=== PATIENT | female | born 1970 | race Caucasian/White ===

== ENCOUNTER 2020-05-23 08:57 | Emergency (ER) | payer OTHER ==
--- OUTSIDE RECORDS SUMMARY | 2020-05-23 09:24 | XMS REPORT | Summary of Care ---
:1970 Author Organization [facility] Primary Care Phill Address [address] [place] [address]- Care Team Providers Name Role Phone Danny Mejia Primary Care Physician Encounter HQ Milka(PAXTON) [phone] Date(s): 02/21/20 - 02/22/20 [facility] Primary Care Phill 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 dermatitis(Confirmed) Hx of completed stroke(Confirmed) Active Hyperlipidemia(Confirmed) Resolved Impaired fasting glucose(Confirmed) Active Mixed hyperlipidemia(Confirmed) Active Morbid obesity(Confirmed) Active Medically noncompliant(Confirmed) Active Pes anserinus bursitis of right Active knee(Confirmed) Allergies, Adverse Reactions, Alerts No Known Allergies Medications folic acid 1 mg oral tablet 0 Refill(s) Start Date: 02/21/20 Status: Orderedhydrochlorothiazide 12.5 mg oral capsule 0 Refill(s) Start Date: 02/21/20 Status: Orderednon-formulary Refill(s) 0 Start Date: 02/21/20 Status: Orderedphentermine 37.5 mg oral tablet 0 Refill(s) Start Date: 02/21/20 Status: Ordered Results No data available for this section Immunizations No data available for this section Procedures Procedure Date Related Diagnosis Body Site Status Knee replacement 10/2018 Completed Knee replacement 11/2017 Completed Repair of meniscus 09/12/08 Completed Fusion of joint of cervical spine with 2007 Completed internal fixation by posterior approach Bariatric operative procedure Completed Social History Social History Type Response Alcohol Never Exercise Exercise duration: 0. Substance Abuse Use: None. Smoking Status Current every day smoker; Co ncerns about tobacco use in household: No; Lives with someone who smokes; Cigarette Smoking Last 365 Days Yes; Reg Smoking Cessation Counseling Yes entered on: 02/22/20 Assessment and Plan No data available for this section
--- OUTSIDE RECORDS SUMMARY | 2020-05-23 09:24 | XMS REPORT | Summary of Care ---
:1970 Author Organization [facility] Primary Care Phill Address [address] [place] [address]- Care Team Providers Name Role Phone Danny Mejia Primary Care Physician Encounter HQ Giulia_amarjit(PAXTON) [phone] Date(s): 02/22/20 - 02/23/20 [facility] Primary Care Phill [address] [place] [address] [phone] Vital Signs No data available for this [...] Adverse Reactions, Alerts No Known Allergies Medications No data available for this section Results No data available for this section Immunizations No data available for this section Procedures Procedure Date Related Diagnosis Body Site Status Knee replacement 10/2018 Completed Knee replacement 11/2017 Completed Repair of meniscus 09/12/08 Completed Fusion of joint of cervical spine with 2008 Completed internal fixation by posterior approach Bariatric [...]
--- OUTSIDE RECORDS SUMMARY | 2020-05-23 09:24 | XMS REPORT | Summary of Care ---
:1970 Author Organization [facility] Primary Care Phill Address [address] [place] [address]- Care Team Providers Name Role Phone Danny Mejia Primary Care Physician Encounter HQ Milka(PAXTON) [phone] Date(s): 02/22/20 - 02/22/20 [facility] Primary Care Phill [address] [place] [address]- [phone] Discharge Disposition: Home or Self Care Attending Physician: Osman Rodriguez MD Vital Signs No data available for this [...] Adverse Reactions, Alerts No Known Allergies Medications Flexeril 10 mg oral tablet 10 mg = 1 tab, PO, Bedtime, PRN for spasm, # 15 tab, 0 Refill(s), Pharmacy: 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/pharmacy #[id number], 154.94, cm, 08/07/19 14:05:00 TELEPATHIST, Height, 114.818, kg, 08/07/19 14:05:00 TELEPATHIST, Weight Start Date: 02/22/20 Stop Date: 02/28/20 Status: Ordered Results No data available for [...]
--- OUTSIDE RECORDS SUMMARY | 2020-05-23 09:24 | XMS REPORT | Summary of Care ---
:1970 Author Organization [facility] Primary Care Phill Address [address] [place] [address]- Care Team Providers Name Role Phone Danny Mejia Primary Care Physician Encounter HQ Milka(PAXTON) [phone] Date(s): 04/18/20 - 04/19/20 [facility] Primary Care Phill 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
--- OUTSIDE RECORDS SUMMARY | 2020-05-23 09:24 | XMS REPORT | Continuity of Care Document ---
:1970 Author Organization [facility] [employer] Care Team Providers Name Role Phone DRESSBOOM Unavailable Un available Problems Problem Status Onset Classification Date Comments Sourc e Date Reported R51 - HEADACHE Active OP ID [id number] [facility] Acid reflux Resolved Problem 04/21/2020 Medi laura (finding) Group, O PID [facility] Benign hypertension Resolved Problem 04/21/2020 Medical (disorder) Group, OPID [facility] Diabetes mellitus Resolved Problem 04/21/2020 H Medical (disorder) Group, OPID [facility] Exercise-induced Active Problem 04/21/2020 Medical asthma (disorder) Gr oup, OPID [facility] Gastroesophageal Active Problem 04/21/2020 Medical reflux disease Group , OPID without esophagitis [place] (disorder) Heavy cigarette Active Problem 04/21/2020 Medical smoker (finding) Bhumika up, OPID [facility] Herpes simplex with Active Problem 04/21/2020 Medical complication Group,[facility] OPID (disorder) [facility] History of - CVA Active Problem 04/21/2020 Medical (context-dependent G roup,MH OPID category) [facility] Hyperlipidemia Resolved Problem 04/21/2020 [facility] edical (disorder) Group, OPID [facility] Impaired fasting Active Problem 04/21/2020 Medical glycaemia Group, O PID (disorder) [facility] Mixed Active Problem 04/21/2020 Medica l hyperlipidemia Group , OPID (disorder) [facility] Morbid obesity Active Problem 04/21/2020 [facility] edical (disorder) Group, OPID [facility] Patient Active Problem 04/21/2020 Medica l non-compliance - Bhumika up, OPID general [facility] (context-dependent category) Pes anserinus Active Problem 04/21/2020 Me dical bursitis (disorder) Group, OPID [facility] Medications Medication Details Route Status Patient Ordering Order Source Instructions Provider Date pantoprazole 40 mg = 1 tab, Active MH oral enteric coated PO, Daily, 020 M edical tablet # 90 tab, Group 0 Refill(s), Pharmacy: [facility] [id number], 154.94, cm, 08/07/19 14:05:00 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, Height, 114.818, kg, 08/07/19 14:05:00 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, Weight {21 See Active MH (Methylprednisolone 4 Instructio 020 Medical MG Oral Tablet ns, PO, Group [Medrol]) } Pack Take by [Medrol Dosepak] mouth as directed on label., X 6 day, # 21 tab, 0 Refill(s), Pharmacy: [id number], 154.94, cm, 08/07/19 14:05:00 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, Height, 114.818, kg, 08/07/19 14:05:00 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, Weight Cyclobenzaprine 10 mg = 1 Active hydrochloride 10 MG tab, PO, 020 Med ical Oral Tablet Bedtime, Group [Flexeril] PRN for spasm, # 15 tab, 0 Refill(s), Pharmacy: [facility] #[id number], 154.94, cm, 08/07/19 14:05:00 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, Height, 114.818, kg, 08/07/19 14:05:00 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, Weight Hydrochlorothiazide 0 Active 12.5 MG Oral Capsule Refill(s) 020 M edical Group non-formulary Refill(s) Active 0 020 Medical Group Phentermine 0 Active Hydrochloride 37.5 MG Refill(s) 020 Medical Oral Tablet Group Folic Acid 1 MG Oral 0 Active Tablet Refill(s) 020 Medical Group pantoprazole 40 mg = 1 tab, Active oral enteric coated PO, Daily, 020 M edical tablet # 90 tab, Group Pharmacy: [facility] #[id number] Hydrochlorothiazide = 1 tab, Active MH 25 MG Oral Tablet PO, Daily, 020 Med ical PRN Group NEEDED FOR SWELLING, # 90 tab, Pharmacy: [id number] Clarithromycin 500 MG 500 mg = 1 Active Oral Tablet [Biaxin] tab, PO, 019 Me dical Q12H, X 10 Group day, # 20 tab, 0 Refill(s), [facility]: [facility] {21 See Active (Methylprednisolone 4 Instructio 019 Medical MG Oral Tablet ns, PO, Group [Medrol]) } Pack Take by [Medrol Dosepak] mouth as directed on label., X 6 day, # 1 Pack, 0 Refill(s), Pharmacy: [facility] Hydrochlorothiazide See Active 25 MG Oral Tablet Instructio 019 Med ical ns, 1 tab Group PO daily x 3 days PRN swelling, # 30 tab, 2 Refill(s), Pharmacy: [facility] olopatadine 1 MG/ML 1 drp, Active Ophthalmic Solution BOTH EYES, 019 M edical [Patanol] BID, X 10 Group day, # 5 ml, 0 Refill(s), Pharmacy: [facility] Hydrochlorothiazide See Active 25 MG Oral Tablet Instructio 019 Med ical ns, 1 tab Group PO daily x 3 days PRN swelling, # 30 tab, 2 Refill(s), Pharmacy: [facility] tizanidine 4 mg oral 4 mg = 1 Active tablet tab, PO, 019 Medical Bedtime, Group PRN muscle spasm, # 30 tab, 0 Refill(s), Pharmacy: [facility] {21 See Active (Methylprednisolone 4 Instructio 019 Medical MG Oral Tablet ns, PO, as Group [Medrol]) } Pack directed [Medrol Dosepak] on package labeling. Take with food, # 1 Pack, 0 Refill(s), Pharmacy: [facility] valacyclovir 500 MG 500 mg = 1 Active M H Oral Tablet [Valtrex] tab, PO, 019 M edical Daily, # Group 90 tab, 3 Refill(s), Pharmacy: [facility] pantoprazole 40 mg = 1 tab, Active MH oral enteric coated PO, Daily, 019 M edical tablet # 90 tab, Group 3 Refill(s), Pharmacy: [id number] albuterol 90 mcg/inh 2 puff, Active inhalation aerosol INHALATION 019 Me dical , Q4H, PRN Group for wheezing, # 9 gm, 2 Refill(s), Pharmacy: [id number] pantoprazole 40 mg = 1 tab, Active MH oral enteric coated PO, Daily, 019 M edical tablet # 30 tab, Group 0 Refill(s), Pharmacy: [id number] pantoprazole 40 MG 40 mg = 1 No Enteric Coated Tablet tab, PO, Longer 018 M edical [Protonix] Daily, # Active Group 90 tab, 1 Refill(s), Pharmacy: [id number] Ciprofloxacin 3 MG/ML 4 drp, Active MH / Dexamethasone 1 LEFT EAR, 018 Medi laura MG/ML Otic Suspension BID, X 7 G roup [Ciprodex] day, # 1 btl, 0 Refill(s), Pharmacy: [id number] Aspirin 81 MG Enteric 81 mg = 1 Active MH Coated Tablet tab, PO, 018 Medical Daily, Group OTC, # 999,999 tab, 0 Refill(s), other albuterol 90 mcg/inh 2 puff, Active inhalation aerosol INHALATION 018 Me dical , Q4H, PRN Group for wheezing, # 9 gm, 2 Refill(s), Pharmacy: [id number] pantoprazole 40 MG 40 mg = 1 Active Enteric Coated Tablet tab, PO, 018 M edical [Protonix] Daily, # Group 30 tab, 0 Refill(s), Pharmacy: [id number] Fluticasone See Active propionate 0.05 Instructio 018 Medic al MG/ACTUAT Metered ns, # 16 Group Dose Nasal Enochs mL, Refill(s) 1, INHALE 2 SPRAYS IN EACH NOSTRIL ONCE DAILY NEEDED FOR CONGESTION ., Pharmacy: [id number] Fluticasone 2 spray, Active propionate 0.05 NASAL, 017 Medical MG/ACTUAT Metered Daily, PRN Bhumika up Dose Nasal Enochs Nasal [Flonase] Congestion , in each nostril, # 16 gm, 1 Refill(s), Pharmacy: [id number] clarithromycin 500 mg 500 mg = 1 Active oral tablet tab, PO, 017 Medical Q12H, X 10 Group day, # 20 tab, 0 Refill(s), Pharmacy: [id number] Brompheniramine 5 mL, PO, Active Maleate 0.4 MG/ML / Q6H, PRN 017 Med ical Dextromethorphan for cough Group Hydrobromide 2 MG/ML and / Pseudoephedrine congestion Hydrochloride 6 MG/ML , X 10 Oral Solution day, # 120 mL, 0 Refill(s), Pharmacy: [id number] Allergies, Adverse Reactions, Alerts No Known Medication Allergies Immunizations No Data Provided for This Section Results No Data Provided for This Section Pathology Reports No Data Provided for This Section Diagnostic Reports Report Value Date Source Chest 2 views DX PROCEDURE INFORMATION: 08/07/2019 MADONNA Nogueira Exam: XR Chest, 2 Views Exam date and time: 08/07/2019 4:25 PM Age: 48 years old Clinical history: Acute bron chitis due to other specified organisms; Additional info: /j20.8 acute bronchitis due to other speci fied organisms TECHNIQUE: Imaging protocol: XR of the chest Views: 2 views. PA and Lateral COMPARISON: No relevant prior studies available. FINDINGS: Lungs: No consolidation. Pleural space: No pleural effusion. No pneumotho rax. Heart/Mediastinum: No cardiomegaly. Bones/joints: No acute abnormality. Part ially visualized cervical spine fusion hardware. IMPRESSION: No acute cardiopulmonary findings Liam Dee MD On 08/07/2019 17:43:07; VR-SMITT [id number] Skull Series DX SKULL, 4 VIEWS 06/04/2019 ANDREINA Kline ood HISTORY: ; - R51 forehead pain; COMPARISON: None available. FINDINGS: Frontal, lateral, and oblique views submitted. No fracture or aggressive os seous lesion or erosion. Visualized paranasal sinuses are clear. Orbits are intact. IMPRESSION: Negative. SL: [id number] Consultation Notes No Data Provided for This Section Discharge Summaries No Data Provided for This Section History and Physicals No Data Provided for This Section Vital Signs Vital Sign Value Date Comments Source Systolic (mm Hg) 130 08/07/2019 [facility] Diastolic (mm Hg) 81 08/07/2019 Medical Group Heart Rate 88 08/07/2019 Medical Grou p Temperature Oral (F) 97.9 F 08/07/2019 Medi laura Group Height 154.94 cm 08/07/2019 Medical Grou p Weight 114.818 08/07/2019 Medical Grou p BMI Calculated 47.83 08/07/2019 [facility] oup Systolic (mm Hg) 123 06/04/2019 [facility] Diastolic (mm Hg) 82 06/04/2019 Medical Group Heart Rate 98 06/04/2019 Medical Grou p Temperature Oral (F) 98.1 F 06/04/2019 Medi laura Group Height 154.94 cm 06/04/2019 Medical Grou p Weight 113.75 06/04/2019 Medical Grou p BMI Calculated 47.38 06/04/2019 Medical Gr oup Height 154.94 cm 03/05/2019 Medical Grou p Weight 111.636 03/05/2019 Medical Grou p BMI Calculated 46.5 03/05/2019 Medical Gr oup Systolic (mm Hg) 128 03/05/2019 Medical Group Diastolic (mm Hg) 83 03/05/2019 Medical Group Respitory Rate 18 03/05/2019 Medical Gr oup Temperature Oral (F) 98.3 F 03/05/2019 Medi laura Group Heart Rate 83 03/05/2019 Medical Grou p BMI Calculated 47.83 02/08/2019 Medical Gr oup Weight 114.818 02/08/2019 Medical Grou p Heart Rate 96 02/08/2019 Medical Grou p Systolic (mm Hg) 123 02/08/2019 Medical Group Diastolic (mm Hg) 77 02/08/2019 Medical Group Respitory Rate 16 02/08/2019 Medical Gr oup Temperature Oral (F) 98.2 F 02/08/2019 Medi laura Group Height 154.94 cm 02/08/2019 Medical Grou p Height 154.94 cm 03/06/2018 Medical Grou p Weight 107.455 03/06/2018 Medical Grou p BMI Calculated 44.76 03/06/2018 Medical Gr oup Systolic (mm Hg) 124 03/06/2018 Medical Group Diastolic (mm Hg) 84 03/06/2018 Medical Group Temperature Oral (F) 98.2 F 03/06/2018 Medi laura Group Heart Rate 98 03/06/2018 Medical Grou p Weight 108.455 02/23/2018 Medical Grou p BMI Calculated 45.18 02/23/2018 Medical Gr oup Height 154.94 cm 02/23/2018 Medical Grou p Heart Rate 86 02/23/2018 Medical Grou p Temperature Oral (F) 98.2 F 02/23/2018 Medi laura Group Systolic (mm Hg) 104 02/23/2018 Medical Group Diastolic (mm Hg) 72 02/23/2018 Medical Group Systolic (mm Hg) 98 11/21/2017 Medical Group Diastolic (mm Hg) 67 11/21/2017 Medical Group Respitory Rate 16 11/21/2017 Medical Gr oup Heart Rate 82 11/21/2017 Medical Grou p BMI Calculated 46.37 11/21/2017 Medical Gr oup Weight 115 11/21/2017 Medical Grou p Temperature Oral (F) 98.0 F 11/21/2017 Medi laura Group Height 157.48 cm 11/21/2017 Medical Grou p BMI Calculated 48.09 07/25/2017 Medical Gr oup Height 154.94 cm 07/25/2017 Medical Grou p Systolic (mm Hg) 133 07/25/2017 Medical Group Diastolic (mm Hg) 88 07/25/2017 Medical Group Temperature Oral (F) 98 F 07/25/2017 Medi laura Group Weight 115.455 07/25/2017 Medical Grou p Heart Rate 90 07/25/2017 Medical Grou p Encounters Location Location Encounter Encounter Reason Attending ADM DC Stat us Source Details Type Number For Provider Date Date Visit Outpatient [id number] YUMI 12/23 Active [facility] Outpatient [id number] YUMI 02/22 Active [facility] Outpatient [id number] YUMI 07/12 Active [facility] Outpatient [id number] RAKEL 07/25 Active [facility] Outpatient [id number] Yumi 07/25 07/26 Primary Mejia /2016 [facility] Phone [id number] 09/13 09/15 Primary Message /2017 [facility] Phone [id number] 10/11 10/13 MH Primary Message /2017 [facility] Phone [phone] 11/18 11/20 MH Primary Message /2017 [facility] Outpatient [id number] OSMAN 11/21 Active [facility] Outpatient [id number] Osman 11/21 11/22 MH Primary Janecek /2017 [facility] Phone [id number] 11/23 11/25 MH Primary Message /2017 [facility] Outside [id number] 11/24 11/26 MH Primary Medical /2017 [facility] Outside [id number] 11/25 11/27 MH Primary Medical /2017 [facility] Phone [phone] 01/13 01/15 Primary Message /2017 [facility] Phone [id number] 02/13 02/15 MH Primary Message /2017 [facility] Outpatient [id number] YUMI 02/23 Active [facility] Outpatient [id number] Yumi 02/23 02/24 MH Primary Mejia /2017 [facility] Outpatient [id number] YUMI 03/06 Active [facility] Outpatient [id number] Yumi 03/06 03/07 Primary Mejia /2017 [facility] Phone [id number] 06/15 06/17 Primary Message /2017 [facility] Phone [id number] 12/06 12/08 Primary Message /2018 [facility] Phone [phone] 02/06 02/08 Primary Message /2018 [facility] Outpatient [id number] Rakel 05/30 Active [facility] Outpatient [id number] Rakel 02/08 02/09 MH Primary [place] /2018 [facility] Outpatient [id number] Rakel 03/05 Active [facility] Outpatient [id number] Rakel 03/05 03/06 MH Primary [place] /2018 [facility] Phone [phone] 03/28 03/30 MH Primary Message /2018 [facility] Between [id number] 04/18 04/19 MH Primary Visit /2018 [facility] Outpatient [id number] Yumi 06/04 Active [facility] Outpatient [id number] Yumi 06/04 06/05 MH Primary Mejia /2018 [facility] Outpt Diag [id number] Yumi 06/04 06/05 MH [facility] [place] [facility] Between [id number] 06/06 06/07 MH Primary Visit /2018 [facility] Phone [phone] 07/02 07/04 MH Primary Message /2018 [facility] Outpatient [id number] Yumi 08/07 Active [facility] Outpatient [id number] Yumi 08/07 08/08 MH Primary Mejia /2018 [facility] Outpt Diag [id number] Yumi 08/07 08/08 MH [facility] Outpatient Services [facility] [place] [facility] Between [id number] 08/08 08/09 MH Primary Visit /2018 [facility] Phone [id number] 08/20 08/22 MH Primary Message /2018 [facility] Phone [id number] 10/08 10/10 MH Primary Message /2019 [facility] Phone [id number] 01/13 01/15 MH Primary Message /2019 [facility] Between [id number] 02/20 02/21 MH Primary Visit /2019 [facility] Outpatient [id number] Osman 02/21 Active [facility] Outpatient [id number] Osman 02/21 02/22 MH Primary Janecek /2019 [facility] Between [id number] 02/21 02/22 MH Primary Visit /2019 [facility] Outpatient [id number] Yumi 04/15 Active [facility] Phone [phone] 04/18 04/20 Primary Message /2019 [facility] Procedures Procedure Code Date Perfomer Comments Source Knee replacement 48588798 11/10/2017 Medic al Group,[facility] OPID [place] Repair of [id number] 09/12/2008 Medical meniscus Group, OPID [place] Fusion of joint [id number] 09/12/2007 Medica l of cervical spine Group,M H OPID with internal [place] fixation by posterior approach Bariatric [id number] Medical operative Group, OPID procedure [place] Assessment and Plan No Data Provided for This Section Plan of Care No Data Provided for This Section Social History Social History Date Source Social History TypeResponse 12/24/2015 Medical G roup Alcohol Never Exercise Exercise duration: 0. Substance Abuse Use: None. Smoking Status Current every day smoker; Concerns about tobacco use in household: No; Lives with someone who smokes; Cigarette Smoking Last 365 Days Yes; Reg Smoking Cessation Counseling Yes entered on: 02/22/20 Social History TypeResponse 12/24/2015 ANDREINA [place] Alcohol Never Exercise Exercise duration: 0. Substance Abuse Use: None. Smoking Status Current every day smoker; Concerns about tobacco use in household: No; Lives with someone who smokes; Cigarette Smoking Last 365 Days Yes; Reg Smoking Cessation Counseling Yes entered on: 08/07/19 Family History No Data Provided for This Section Advance Directives No Data Provided for This Section Functional Status No Data Provided for This Section
--- OUTSIDE RECORDS SUMMARY | 2020-05-23 09:25 | XMS REPORT | Continuity of Care Document ---
:1970 Author Organization [facility] t Address [address] [place] [address] Care Team Providers Name Role Phone Joey Rodriguez Attending Clinician Aaron Mejia Attending Clinician Nilo Attending Clinician Payers Payer Name Policy Type Policy Number Effective Date Expiration Date S ource Problems Condition Condition Condition Status Onset Resolution Last Treating Co mments Source Name Details Category Date Date Treatment Clinician Date R51 - Diagnosis Active 2019-06-04 Mem oria HEADACHE 06-04 16:27:00 l R51 - 00:01: [place]am HEADACHE 00 Active 06/04/2019 [facility] Acid Problem Resolve 2020-04-21 Catrachito darlin reflux d 22:51:13 l (finding) Acid [place] reflux (finding) [facility] Benign Problem Resolve 2020-04-21 Catrachito darlin hypertensi d 22:51:13 l on Benign [place] (disorder) hypertensi on (disorder) Resolved Problem 04/21/2020 [facility] Diabetes Problem Resolve 2020-04-21 Me moria mellitus d 22:51:13 l (disorder) Diabetes He rmann mellitus (disorder) Resolved Problem 04/21/2020 Medical [facility] OPID [facility] Hyperlipid Problem Resolve 2020-04-21 Memoria emia d 22:51:13 l (disorder) Sherwin n Hyperlipid emia (disorder) Resolved Problem 04/21/2020 [facility] Group, [facility] Exercise-i Problem Active 2020-04-21 M emoria nduced 22:51:13 l asthma Rustam (disorder) Exercise-i nduced asthma (disorder) Active Problem 04/21/2020 [facility], [facility] Gastroesop Problem Active 2020-04-21 M emoria hageal 22:51:13 l reflux [place] disease Gastroesop without hageal esophagiti reflux s disease (disorder) without esophagiti s (disorder) Active Problem 04/21/2020 [facility], [facility] Heavy Problem Active 2020-04-21 Memor ia cigarette 22:51:13 l smoker Heavy [place] (finding) cigarette smoker (finding) Active Problem 04/21/2020 [facility], [facility] Herpes Problem Active 2020-04-21 Memor ia simplex 22:51:13 l with Herpes [place]am complicati simplex on with (disorder) complicati on (disorder) Active Problem 04/21/2020 [facility], [facility] History of Problem Active 2020-04-21 M emoria - CVA 22:51:13 l (context-d History Her lacy ependent of - CVA category) (context-d ependent category) Active Problem 04/21/2020 [facility], [facility] Impaired Problem Active 2020-04-21 Mem oria fasting 22:51:13 l glycaemia Impaired Her lacy (disorder) fasting glycaemia (disorder) Active Problem 04/21/2020 [facility], [facility] Mixed Problem Active 2020-04-21 Memor ia hyperlipid 22:51:13 l emia Mixed Rustam (disorder) hyperlipid emia (disorder) Active Problem 04/21/2020 [facility], [facility] Morbid Problem Active 2020-04-21 Memor ia obesity 22:51:13 l (disorder) Morbid Herm sienna obesity (disorder) Active Problem 04/21/2020 [facility], [facility] Patient Problem Active 2020-04-21 Catrachito darlin non-compli 22:51:13 l ance - Patient [place] general non-compli (context-d ance - ependent general category) (context-d ependent category) Active Problem 04/21/2020 [facility], [facility] Pes Problem Active 2020-04-21 Donovan napier 22:51:13 l bursitis Pes [place] (disorder) anserinus bursitis (disorder) Active Problem 04/21/2020 [facility], [facility] Allergies, Adverse Reactions, Alerts Allergy Allergy Status Severity Reaction(s) Onset Inactive Treating Comm ents Source Name Type Date Date Clinician No Known DA Active [facility] [place] No Known DA [facility]20 [place] [facility] Social History Social Habit Start Date Stop Date Quantity Comments Source Social History 2015-12-24 2015-12-24 [facility] 18:11:14 18:11:14 Medications Ordered Filled Start Stop Current Ordering Indication Dosage Frequency Signature Comments Components Source Medication Medication Date Date Medication? 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, 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, kg, 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, 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 Cyclobenzap Yes 10 mg = 1 M emoria rine 6-12 tab, PO, l hydrochlori 13:33: Bedtime, He rmann de 10 MG 00 PRN for Oral Tablet spasm, # [Flexeril] 15 tab, 0 Refill(s), Pharmacy: [facility] #[id number], 154.94, cm, 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, 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, 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, kg, 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, 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 Hydrochloro 2020-0 Yes 0 Memori a thiazide 6-11 Refill(s) l 12.5 MG 21:50: [place] Oral 00 Capsule non-formula 2019-0 Yes Refill(s) M emoria ry 6-11 0 l 21:50: Rustam 00 Phentermine 2020-0 Yes 0 Memori a Hydrochlori 6-11 Refill(s) l de 37.5 MG 21:50: [place]am Oral Tablet 00 Folic Acid 2020-0 Yes 0 Memoria 1 MG Oral 6-11 Refill(s) l Tablet 21:49: Rustam 00 pantoprazol 2020-0 Yes = 1 tab, Me moria e 40 mg 5-04 PO, Daily, l oral 13:34: # 90 tab, [place] enteric 48 Pharmacy: [facility] #[id number] Hydrochloro Yes = 1 tab, Me moria thiazide 25 1-27 PO, Daily, l MG Oral 15:06: PRN Rustam Tablet 37 NEEDED FOR SWELLING, # 90 tab, Pharmacy: [facility] #7[facility] Clarithromy 2018-09 Yes 500 mg = 1 Memoria roberto 500 MG 1-26 tab, PO, l Oral Tablet 20:13: Q12H, X 10 Rustam [Biaxin] 00 day, # 20 tab, 0 Refill(s), Pharmacy: [facility] #[facility] {2018-09 Yes See Memoria (Methylpred 1-26 Instructio l nisolone 4 20:13: ns, PO, Herm sienna MG Oral 00 Take by Tablet mouth as [Medrol]) } directed Pack on label., [Medrol X 6 day, # Dosepak] 1 Pack, 0 Refill(s), Pharmacy: [facility] #[facility] Hydrochloro 2018-09 Yes See Memori a thiazide 25 0-21 Instructio l MG Oral 18:04: ns, 1 tab Ariana nn Tablet 00 PO daily x 3 days PRN swelling, # 30 tab, 2 Refill(s), Pharmacy: [id number] olopatadine 2018- Yes 1 drp, Catrachito darlin 1 MG/ML 9-23 BOTH EYES, l Ophthalmic 20:44: BID, X 10 He rmann Solution 00 day, # 5 [Patanol] ml, 0 Refill(s), Pharmacy: [facility] Hydrochloro 2018- Yes See Memori a thiazide 25 9-23 Instructio l MG Oral 20:44: ns, 1 tab Ariana nn Tablet 00 PO daily x 3 days PRN swelling, # 30 tab, 2 Refill(s), Pharmacy: [facility]120 tizanidine 2018- Yes 4 mg = 1 Mem oria 4 mg oral 6-24 tab, PO, l tablet 19:44: Bedtime, [place] 00 PRN muscle spasm, # 30 tab, 0 Refill(s), Pharmacy: [facility] {21 Yes See Memoria (Methylpred 6-24 Instructio l nisolone 4 19:44: ns, PO, as H ermann MG Oral 00 directed Tablet on package [Medrol]) } labeling. Pack Take with [Medrol food, # 1 Dosepak] Pack, 0 Refill(s), Pharmacy: [id number] valacyclovi 2018- Yes 500 mg = 1 Memoria r 500 MG 5-30 tab, PO, l Oral Tablet 18:52: Daily, # He rmann [Valtrex] 00 90 tab, 3 Refill(s), Pharmacy: [id number] pantoprazol 2018- Yes = 1 tab, Me moria e 40 mg 5-30 PO, Daily, l oral 18:46: # 90 tab, [place] enteric 19 3 coated Refill(s), tablet Pharmacy: [facility] #[id number] albuterol 2018- Yes 2 puff, Memor ia 90 mcg/inh 5-30 INHALATION l inhalation 18:46: , Q4H, PRN H ermann aerosol 18 for wheezing, # 9 gm, 2 Refill(s), Pharmacy: [id number] pantoprazol 2018- Yes = 1 tab, Me moria e 40 mg 3-27 PO, Daily, l oral 23:14: # 30 tab, [place] enteric 55 0 coated Refill(s), tablet [id number] pantoprazol 2017-09 No 40 mg = 1 M emoria e 40 MG 0-04 tab, PO, l Enteric 19:37: Daily, # Sherwin n Coated 00 90 tab, 1 Tablet Refill(s), [Protonix] [id number] Ciprofloxac Yes 4 drp, Catrachito darlin in 3 MG/ML 03-06 LEFT EAR, l / 16:38: BID, X 7 [place] Dexamethaso 00 day, # 1 ne 1 MG/ML btl, 0 Otic Refill(s), Suspension Pharmacy: [Ciprodex] [facility] Aspirin 81 Yes 81 mg = 1 Me moria MG Enteric 6-14 tab, PO, l Coated 13:11: Daily, Rustam Tablet 00 OTC, # 999,999 tab, 0 Refill(s), other albuterol Yes 2 puff, Memor ia 90 mcg/inh 6-14 INHALATION l inhalation 13:09: , Q4H, PRN H ermann aerosol 00 for wheezing, # 9 gm, 2 Refill(s), Pharmacy: [id number] pantoprazol Yes 40 mg = 1 M emoria e 40 MG 5-04 tab, PO, l Enteric 18:43: Daily, # Sherwin n Coated 51 30 tab, 0 Tablet Refill(s), [Protonix] Pharmacy: [facility] #[id number] Fluticasone Yes See Memori a propionate 09-13 Instructio l 0.05 15:21: ns, # 16 [place] MG/ACTUAT 09 mL, Metered Refill(s) Dose Nasal 1, INHALE [place] 2 SPRAYS IN EACH NOSTRIL ONCE DAILY NEEDED FOR CONGESTION ., Pharmacy: [facility] #[id number] Fluticasone 2016-09 Yes 2 spray, Me moria propionate 1-13 NASAL, l 0.05 22:30: Daily, PRN [place] MG/ACTUAT 00 Nasal Metered Congestion Dose Nasal , in each [place] nostril, # [Flonase] 16 gm, 1 Refill(s), Pharmacy: [facility] #[id number] clarithromy 2016-09 Yes 500 mg = 1 Memoria roberto 500 mg 1-13 tab, PO, l oral tablet 22:30: Q12H, X 10 Rustam 00 day, # 20 tab, 0 Refill(s), Pharmacy: [facility] Bromphenira 2016-09 Yes 5 mL, PO, M emoria mine 1-13 Q6H, PRN l Maleate 0.4 22:30: for cough H ermann MG/ML / 00 and Dextrometho congestion rphan , X 10 Hydrobromid day, # 120 e 2 MG/ML / mL, 0 Pseudoephed Refill(s), rine Pharmacy: Hydro[facility]i [facility] MG/ML [facility] #7120 Oral Solution Vital Signs Vital Name Observation Time Observation Value Comments Source Systolic (mm Hg) 2019-08-07 20:05:00 Catrachito rial [place] Diastolic (mm Hg) 2019-08-07 20:05:00 Mem orial [place] Heart Rate 2019-08-07 20:05:00 [facility] [place] Temperature Oral (F) 2019-08-07 20:05:00 97.9 F [facility] [place] Height 2019-08-07 20:05:00 154.94 cm [facility] [place] Weight 2019-08-07 20:05:00 [facility] [place] BMI Calculated 2019-08-07 20:05:00 Memori al [place] Systolic (mm Hg) 2019-06-04 20:25:00 Catrachito rial [place] Diastolic (mm Hg) 2019-06-04 20:25:00 Mem orial [place] Heart Rate 2019-06-04 20:25:00 [facility] [place] Temperature Oral (F) 2019-06-04 20:25:00 98.1 F [facility] [place] Height 2019-06-04 20:25:00 154.94 cm [facility] [place] Weight 2019-06-04 20:25:00 [facility] [place] BMI Calculated 2019-06-04 20:25:00 Memori al [place] Height 2019-03-05 19:23:00 154.94 cm [facility] [place] Weight 2019-03-05 19:23:00 [facility] [place] BMI Calculated 2019-03-05 19:23:00 Memori al [place] Systolic (mm Hg) 2019-03-05 19:23:00 Catrachito rial [place] Diastolic (mm Hg) 2019-03-05 19:23:00 Mem orial [place] Respitory Rate 2019-03-05 19:23:00 Memori al [place] Temperature Oral (F) 2019-03-05 19:23:00 98.3 F [facility] [place] Heart Rate 2019-03-05 19:23:00 [facility] [place] BMI Calculated 2019-02-08 18:32:00 Memori al [place] Weight 2019-02-08 18:32:00 [facility] [place] Heart Rate 2019-02-08 18:32:00 [facility] [place] Systolic (mm Hg) 2019-02-08 18:32:00 Catrachito rial [place] Diastolic (mm Hg) 2019-02-08 18:32:00 Mem orial [place] Respitory Rate 2019-02-08 18:32:00 Memori al [place] Temperature Oral (F) 2019-02-08 18:32:00 98.2 F [facility] [place] Height 2019-02-08 18:32:00 154.94 cm [facility] [place] Height 2018-03-06 16:25:00 154.94 cm [facility] [place] Weight 2018-03-06 16:25:00 [facility] [place] BMI Calculated 2018-03-06 16:25:00 Memori al [place] Systolic (mm Hg) 2018-03-06 16:25:00 Catrachito rial [place] Diastolic (mm Hg) 2018-03-06 16:25:00 Mem orial [place] Temperature Oral (F) 2018-03-06 16:25:00 98.2 F [facility] [place] Heart Rate 2018-03-06 16:25:00 [facility] [place] Weight 2018-02-23 12:40:00 [facility] [place] BMI Calculated 2018-02-23 12:40:00 Memori al [place] Height 2018-02-23 12:40:00 154.94 cm [facility] [place] Heart Rate 2018-02-23 12:40:00 [facility] [place] Temperature Oral (F) 2018-02-23 12:40:00 98.2 F [facility] [place] Systolic (mm Hg) 2018-02-23 12:40:00 Catrachito rial [place] Diastolic (mm Hg) 2018-02-23 12:40:00 Mem orial [place] Systolic (mm Hg) 2017-11-21 20:45:00 Catrachito rial [place] Diastolic (mm Hg) 2017-11-21 20:45:00 Mem orial [place] Respitory Rate 2017-11-21 20:45:00 Memori al [place] Heart Rate 2017-11-21 20:45:00 [facility] [place] BMI Calculated 2017-11-21 20:45:00 Memori al [place] Weight 2017-11-21 20:45:00 [facility] [place] Temperature Oral (F) 2017-11-21 20:45:00 98.0 F [facility] [place] Height 2017-11-21 20:45:00 157.48 cm [facility] [place] BMI Calculated 2017-07-25 22:18:00 Memori al [place] Height 2017-07-25 22:18:00 154.94 cm [facility] [place] Systolic (mm Hg) 2017-07-25 22:18:00 Catrachito rial [place] Diastolic (mm Hg) 2017-07-25 22:18:00 Mem orial [place] Temperature Oral (F) 2017-07-25 22:18:00 98 F [facility] [place] Weight 2017-07-25 22:18:00 [facility] [place] Heart Rate 2017-07-25 22:18:00 [facility] Procedure Date / Time Performed Performing Clinician Idania cheryl Knee replacement 2017-11-10 00:00:00 [facility] rmann Repair of meniscus 2008-09-12 06:00:00 [facility] [place] Fusion of joint of 2007-09-12 00:00:00 [facility] [place] cervical spine with internal fixation by posterior approach Bariatric operative [facility] lacy procedure Encounters Start End Encounter Admission Attending Care Care Encounter Source Date/Time Date/Time Type Type Clinicians Facility Department ID 2020-04-18 2020-04-19 [id number] 07:45:38 23:59:59 17 2020-02-22 2020-02-23 Outpatient [facility] [id number] 08:52:50 08:52:50 25 2020-02-22 2020-02-22 Outpatient Jennifer, [facility] [id number] 08:15:00 23:59:59 Osman Cook 2020-02-21 2020-02-22 Outpatient [facility] [id number] 16:48:44 16:48:44 24 2020-01-14 2020-01-15 [facility] [id number] 08:04:38 23:59:59 16 2019-10-08 2019-10-09 Outpatient [facility] [id number] 07:48:39 23:59:59 15 2019-08-20 2019-08-21 Outpatient [facility] [id number] 14:36:04 23:59:59 14 2019-08-08 2019-08-09 Outpatient [facility] [id number] 08:32:23 08:32:23 20 2019-08-07 2019-08-07 Outpatient Jackie [facility] [id number] 13:45:00 23:59:59 Danny Aaron 10 2019-08-07 2019-08-07 Outpatient Jackie, [id number] 15:00:00 23:59:00 Danny Aaron [id number] 5.24 2019-07-02 2019-07-03 Outpatient [facility] [id number] 08:33:02 23:59:59 13 2019-06-06 2019-06-07 Outpatient [facility] [id number] 18:17:25 18:17:25 18 2019-06-04 2019-06-04 Outpatient Jackie [facility] [id number] 15:30:00 23:59:59 Danny Aaron 09 2019-06-04 2019-06-04 Outpatient Jackie [id number] 16:18:00 23:59:00 Danny Aaron [id number] 5.24 2019-04-18 2019-04-19 Outpatient [facility] [id number] 14:57:56 14:57:56 17 2019-03-28 2019-03-29 Outpatient [facility] [id number] 08:17:54 23:59:59 12 2019-03-05 2019-03-05 Outpatient Nilo, [facility] [id number] 14:30:00 23:59:59 Fina 2019-02-08 2019-02-08 Outpatient Nilo, [facility] [id number] 13:30:00 23:59:59 Fina 07 2019-02-06 2019-02-07 Outpatient [facility] [id number] 07:58:27 23:59:59 11 2018-12-06 2018-12-07 Outpatient [facility] [id number] 08:15:00 23:59:59 10 2018-06-15 2018-06-16 Outpatient [facility] [id number] 13:03:00 23:59:59 09 2018-03-06 2018-03-06 Outpatient Jackie, [facility] [id number] 11:30:00 23:59:59 Danny Aaron 2018-02-23 2018-02-23 Outpatient Jackie [facility] [id number] 08:00:00 23:59:59 Danny Aaron 05 2018-02-13 2018-02-14 Outpatient [facility] [id number] 09:10:00 23:59:59 08 2018-01-13 2018-01-14 Outpatient [facility] [id number] 09:36:00 23:59:59 07 2017-11-25 2017-11-26 Outpatient [facility] [id number] 16:44:00 23:59:59 06 2017-11-24 2017-11-25 Outpatient [facility] [id number] 14:18:00 23:59:59 05 2017-11-23 2017-11-24 Outpatient [facility] [id number] 17:02:00 23:59:59 04 2017-11-21 2017-11-21 Outpatient Jennifer [facility] [id number] 15:30:00 23:59:59 Osman Cook 2017-11-18 2017-11-19 Outpatient [facility] [id number] 14:05:00 23:59:59 03 2017-10-11 2017-10-12 Outpatient [facility] [id number] 11:27:00 23:59:59 02 2017-09-13 2017-09-14 Outpatient [facility] [id number] 07:50:00 23:59:59 01 2017-07-25 2017-07-25 Outpatient Jackie [facility] [id number] 16:00:00 23:59:59 Danny Aaron 03 Results Test Description Test Time Test Comments Results Result Comments Source BASIC METABOLIC PANEL 2018-10-25 07:50:00 Test Item Value Reference Range Interpretation Comme nts SODIUM (test code = NA) 138 mmol/L 136-145 N POTASSIUM (test code = K) 4.6 mmol/L 3.5-5.1 N CHLORIDE (test code = CL) 104.0 mmol/L 98-107 N CARBON DIOXIDE (test code = 23.3 mmol/L 21-32 N CO2) GLUCOSE (test code = GLU) 133 mg/dL 70-110 H BLOOD UREA NITROGEN (test code 18 mg/dL 7-18 N = BUN) GLOMERULAR FILTRATION RATE 103.2 >60 U nit of measure: (test code = GFR) mL/min/1.7 3 [id number] Range:Healthy A dults >90 mL/min/1.73 m2 For Chronic Kidney Disease: Stage II Mi ld Decrease in GFR 60-9 0 Stage III Moderate Decrease in GFR 30-59 Stage IV Severe Decrease in GFR 15-29 Stage V Kidney Failure <15 CREATININE (test code = CREAT) 0.62 mg/dL 0.55-1.30 N CALCIUM (test code = CA) 8.7 mg/dL 8.2-10.1 N HGB [id number] 05:56:00 Test Item Value Reference Range Interpretation Comments HEMOGLOBIN (test code = HGB) 10.6 g/dL 12-16 L HEMATOCRIT (test code = HCT) 33.8 % 37-47 L - XR KNEE 1 OR 2 V [id number] 11:06:00 Patient Name: KENTRELL PEÑA Unit No: [id number] EXAMS: CPT CODE: [id number] XR KNEE 1 [place] 2 [place] [id number] LEFT KNEE 2 VIEWS PORTABLE COMMENT: 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 at 1106 Reported and signed by: Dawit Vincent MD CC: Hai Gaines MD Technologist: SHUKRI VALLE (RT.R) Transcribed D/ (1106) t.[email or web address].JCL [facility] NAME: KENTRELL PEÑA [address] [facility] PHYS: Hai An MD : 1970 AGE: 47 SEX: F [place], [place] [address] LOC: Y.311 A PHONE #: [phone] EXAM DATE: 10/24/2018 [place] [facility] [place] #: [phone] #: D/C DT PAGE 1 Signed Report Patient Name: KENTRELL PEÑA Unit No: [id number] EXAMS: CPT CODE: [id number] XR KNEE 1 [place] 2 [place] [address] <Continued> Orig Print D/T: S: 10/24/2018 (1110) [facility] NAME: KENTRELL PEÑA [address] [facility] PHYS: Hai An MD : 1970 AGE: 47 SEX: F [place], [place] [address] LOC: Y.311 A PHONE #: [phone] EXAM DATE: 10/24/2018 [place] [facility] [place]: [phone] RAD #: D/C DT PAGE 2 Signed ReportBASIC METABOLIC [id number] 17:12:00 Test Item Value Reference Range Interpretation Comments SODIUM (test code = 139 mmol/L 136-145 N NA) POTASSIUM (test code = 5.1 mmol/L 3.5-5.1 N K) CHLORIDE (test code = 102.0 mmol/L 98-107 N CL) CARBON DIOXIDE (test 26.1 mmol/L 21-32 N code = CO2) GLUCOSE (test code = 117 mg/dL 70-110 H GLU) BLOOD UREA NITROGEN 14 mg/dL 7-18 N (test code = BUN) GLOMERULAR FILTRATION 126.4 >60 Unit o f measure: RATE (test code = GFR) mL/mi n/1.73 [id number] Range:Healthy Adults >90 mL/min/1.73 m2 For Chronic Kidney Disease: St age II Mild Decrease in GFR 60-90 St age III Moderate Decrease in GFR 30-59 Stage IV Severe Decre ase in GFR 15- 29 Stage V Kidney Failure <15 CREATININE (test code 0.52 mg/dL 0.55-1.30 L = CREAT) CALCIUM (test code = 9.8 mg/dL 8.2-10.1 N CA) CBC W/AUTO [id number] 16:46:00 Test Item Value Reference Range Interpretation Comments WHITE BLOOD CELL (test code = WBC) 9.6 K/mm3 5.8-11.0 N RED BLOOD CELL (test code = RBC) 5.21 M/mm3 4.2-5.4 N HEMOGLOBIN (test code = HGB) 12.6 g/dL 12-16 N HEMATOCRIT (test code = HCT) 40.8 % 37-47 N MEAN CELL VOLUME (test code = MCV) 78 fL 80-98 L MEAN CELL HGB (test code = MCH) 24.2 pg 27-34 L MEAN CELL HGB CONCENTRATION (test 30.9 g/dL 30.8-34.1 N code = MCHC) RED CELL DISTRIBUTION WIDTH (test 14.1 % 11-16 N code = RDW) PLT (test code = PLT) 389 K/mm3 130-400 N MEAN PLATELET VOLUME (test code = 11.9 fL 8.9-12.1 N MPV) NEUTROPHIL % (test code = NT%) 66.3 % 45-70 N LYMPHOCYTE % (test code = LY%) 24.7 % 20-40 N MONOCYTE % (test code = MO%) 7.0 % 3-10 N EOSINOPHIL % (test code = EO%) 1.3 % 1-5 N BASOPHIL % (test code = BA%) 0.5 % 0.0-1.1 N NEUTROPHIL # (test code = NT#) 6.39 K/mm3 2.00-7.50 N LYMPHOCYTE # (test code = LY#) 2.38 K/mm3 1.50-4.00 N MONOCYTE # (test code = MO#) 0.67 K/mm3 0.2-0.8 N EOSINOPHIL # (test code = EO#) 0.13 K/mm3 0.04-0.4 N BASOPHIL # (test code = BA#) 0.05 K/mm3 0.02-0.10 N MANUAL DIFF REQUIRED (test code = NO MANUAL DIFF MDIFF) NUCLEATED RED BLOOD CELL (test 0 % 0-0 N code = NRBC)
[2020-05-23] MEDS ORDERED: DIPHENHYDRAMINE 50 MG/ML VIAL ONE (10:24)
[2020-05-23] MEDS ORDERED: NA CHLORIDE 0.9% 1,000 ML ONE (10:24)
[2020-05-23] MEDS ORDERED: METOCLOPRAMIDE 10 MG/2mL INJ ONE (10:24)
[2020-05-23] MEDS ORDERED: KETOROLAC 30 MG/ML INJ ONE (10:24)
--- NOTE | 2020-05-23 10:26 | RAD REPORT ---
EXAM DESCRIPTION: CT - Head Brain Wo Cont - 05/23/2020 10:21 am CLINICAL HISTORY: HEADACHE Headache, drowsiness COMPARISON: No comparisons TECHNIQUE: All CT scans are performed using dose optimization technique as appropriate and may inclu de automated exposure control or mA/KV adjustment according to patient size. FINDINGS: No intracranial hemorrhage, hydrocephalus or extra-axial fluid collection.No areas of brai n edema or evidence of midline shift. The paranasal sinuses and mastoids are clear. The calvarium is intact. IMPRESSION: No acute intracranial abnormality.
[2020-05-23 10:54] LABS: Absolute Lymphocytes (CBC) 2.2 K/uL (0.7-4.9); Basophils % 0.9 % (0-1.3); Hematocrit 35.6 % (36.0-45.0); Lymphocytes % 22.1 % (15.3-44.8); MPV 9.3 fL (7.6-11.3); RBC Red Blood Cell Count 5.29 M/uL (3.86-4.86)
[2020-05-23 11:14] LABS: Urine Blood NEGATIVE (NEG); Urine Glucose NEGATIVE (NEG); Urine Protein TRACE (NEG); Urine Specific Gravity 1.025 (1.005-1.030)
[2020-05-23 11:25] LABS: ALT/SGPT 17 U/L (12-78); AST/SGOT 9 U/L (15-37); Albumin 3.5 g/dL (3.4-5.0); Alkaline Phosphatase 146 U/L (45-117); BUN Blood Urea Nitrogen 15 mg/dL (7-18); Bicarbonate 27 mmol/L (21-32); Bilirubin Total 0.4 mg/dL (0.2-1.0); Glucose Level 155 mg/dL (74-106); Potassium 3.5 mmol/L (3.5-5.1); Protein, Total 7.7 g/dL (6.4-8.2); Sodium Level 137 mmol/L (136-145)
--- NOTE | 2020-05-23 11:45 | EDPHYS ---
Physician Documentation [facility] Name: Samara Hopson Age: 49 yrs Sex: Female : 1970 Arrival Date: 05/23/2020 Time: 09:01 Bed 17 Private MD: ED Physician Tegan Kaye HPI: 05/23 10:25 This 49 yrs old Female presents to ER via Ambulatory with complaints of ma2 Blurred Vision - L Eye, Jaw Pain. 10:25 The patient complains of pain to the forehead and right jaw. The patient describes the ma2 headache as constant. Onset: The symptoms/episode began/occurred gradually, 1 day(s) ago. Associated signs and symptoms: Pertinent negatives: dizziness, malaise. Severity of symptoms: At its worst the pain was mild, in the emergency department the pain is unchanged. The patient has experienced similar episodes in the past. here with headache an right jaw pain at TMJ, she never had that before, she did had blurred vision 4 days ago but that resolved.. she only takes ppi, . Historical: - Allergies: 09:14 No Known Allergies; hb - Home Meds: 09:14 Protonix Oral [Active]; hb - PMHx: 09:14 GERD; hb 09:14 CVA; hb - PSHx: 09:14 Gastric Sleeve; hb 09:14 Neck Fusion; Knee Repleacement - Bilateral; hb - Immunization history:: Adult Immunizations up to date. - Social history:: Smoking status: Patient reports the use of cigarette tobacco products, smokes one pack cigarettes per day. Patient/guardian denies using alcohol, street drugs, The patient lives with family. - Family history:: not pertinent. - Hospitalizations: : No recent hospitalization is reported. ROS: 10:25 Constitutional: Negative for fever, chills, and weight loss. ma2 10:25 All other systems are negative. Exam: 10:25 Constitutional: This is a well developed, well nourished patient who is awake, alert, ma2 and in no acute distress. Head/Face: Normocephalic, atraumatic. Eyes: Pupils equal round and reactive to light, extra-ocular motions intact. Lids and lashes normal. Conjunctiva and sclera are non-icteric and not injected. Cornea within normal limits. Periorbital areas with no swelling, redness, or edema. ENT: Nares patent. No nasal discharge, no septal abnormalities noted. Tympanic membranes are normal and external auditory canals are clear. Oropharynx with no redness, swelling, or masses, exudates, or evidence of obstruction, uvula midline. Mucous membranes moist. Neck: Trachea midline, no thyromegaly or masses palpated, and no cervical lymphadenopathy. Supple, full range of motion without nuchal rigidity, or vertebral point tenderness. No Meningismus. Chest/axilla: Normal chest wall appearance and motion. Nontender with no deformity. No lesions are appreciated. Cardiovascular: Regular rate and rhythm with a normal S1 and S2. No gallops, murmurs, or rubs. Normal PMI, no JVD. No pulse deficits. Respiratory: Lungs have equal breath sounds bilaterally, clear to auscultation and percussion. No rales, rhonchi or wheezes noted. No increased work of breathing, no retractions or nasal flaring. Abdomen/GI: Soft, non-tender, with normal bowel sounds. No distension or tympany. No guarding or rebound. No evidence of tenderness throughout. Back: No spinal tenderness. No costovertebral tenderness. Full range of motion. Skin: Warm, dry with normal turgor. Normal color with no rashes, no lesions, and no evidence of cellulitis. MS/ Extremity: Pulses equal, no cyanosis. Neurovascular intact. Full, normal range of motion. Neuro: Awake and alert, GCS 15, oriented to person, place, time, and situation. Cranial nerves II-XII grossly intact. Motor strength 5/5 in all extremities. Sensory grossly intact. Cerebellar exam normal. Normal gait. Psych: Awake, alert, with orientation to person, place and time. Behavior, mood, and affect are within normal limits. Vital Signs: 09:10 BP 154 / 88; Pulse 98; Resp 16; Temp 97.3; Pulse Ox 99% on R/A; Weight 107.5 kg; Height hb 5 ft. 2 in. (157.48 cm); Pain 4/10; 10:00 Pulse 75; Resp 16; Pulse Ox 99% ; sv 09:10 Body Mass Index 43.35 (107.50 kg, 157.48 cm) hb MDM: 09:57 Patient medically screened. ma2 10:25 Differential diagnosis: otitis, sinusitis, tension headache, traumatic injuries, dental ma2 infection vs tmj syndrome. Data reviewed: vital signs, nurses notes, diagnostic data from outside facility, old medical records, lab test result(s), EKG, radiologic studies. Counseling: I had a detailed discussion with the patient and/or guardian regarding: the historical points, exam findings, and any diagnostic results supporting the discharge/admit diagnosis, the presence of at least one elevated blood pressure reading (>120/80) during this emergency department visit, the need for outpatient follow up. Response to treatment: the patient's symptoms have markedly improved after treatment. 05/23 10:10 Order name: CBC with Diff ma2 05/23 10:10 Order name: CMP; Complete Time: 11:57 ma2 05/23 10:10 Order name: Head Brain Wo Cont CT; Complete Time: 10:36 ma2 05/23 10:46 Order name: Urine Dipstick--Ancillary (enter results); Complete Time: 11:24 bd 05/23 10:46 Order name: Urine --Ancillary (enter results); Complete Time: 11:24 bd 05/23 10:10 Order name: Urine Dipstick-Ancillary (obtain specimen); Complete Time: 11:19 ma2 Administered Medications: 10:25 Drug: NS 0.9% 1000 ml Route: IV; Rate: 1 bolus; Site: right antecubital; sv 11:30 Follow up: Response: No adverse reaction; IV Status: Completed infusion; IV Intake: sv 1000ml 10:25 Drug: Benadryl 25 mg Route: IVP; Site: right antecubital; sv 11:00 Follow up: Response: No adverse reaction sv 10:27 Drug: TORadol 30 mg Route: IVP; Site: right antecubital; sv 11:00 Follow up: Response: No adverse reaction sv 10:29 Drug: Reglan 10 mg Route: IVP; Site: right antecubital; sv 11:00 Follow up: Response: No adverse reaction sv Disposition: 05/23/20 11:44 Discharged to Home. Impression: Cystitis, unspecified without hematuria. - Condition is Stable. - Discharge Instructions: Temporomandibular Joint Syndrome, Urinary Tract Infection, Adult, [id number]. - Prescriptions for Diclofenac Sodium 75 mg Oral Tablet Sustained Release - take 1 tablet by ORAL route 2 times per day; 30 tablet. Cyclobenzaprine 5 mg Oral Tablet - take 1 tablet by ORAL route 3 times per day As needed; 15 tablet. Bactrim DS 800- 160 mg Oral Tablet - take 1 tablet by ORAL route every 12 hours for 5 days; 10 tablet. - Medication Reconciliation Form, Thank You Letter, Antibiotic Education, Prescription Opioid Use form. - Follow up: Private Physician; When: Tomorrow; Reason: Continuance of care. - Notes: see a dentist for further evaluation, rule out dental conditions in 3-5 days Signatures: Dispatcher [employer] EDMichell Avery RN RN Samara Boudreaux RN RN Tegan Glynn MD MD ma2 Corrections: (The following items were deleted from the chart) 12:08 11:44 05/23/2020 11:44 Discharged to Home. Impression: Cystitis, unspecified without sv hematuria. Condition is Stable. Discharge Instructions: Temporomandibular Joint Syndrome. Prescriptions for Diclofenac Sodium 75 mg Oral Tablet Sustained Release - take 1 tablet by ORAL route 2 times per day; 30 tablet, Cyclobenzaprine 5 mg Oral Tablet - take 1 tablet by ORAL route 3 times per day As needed; 15 tablet. and Forms are Medication Reconciliation Form, Thank You Letter, Antibiotic Education, Prescription Opioid Use. Follow up: Private Physician; When: Tomorrow; Reason: Continuance of care. ma2
--- NOTE | 2020-05-23 11:45 | ER ---
Nurse's Notes [facility] Name: Samara Hopson Age: 49 yrs Sex: Female : 1970 Arrival Date: 05/23/2020 Time: 09:01 Bed 17 Private MD: Diagnosis: Cystitis, unspecified without hematuria Presentation: 05/23 09:10 Chief complaint: Intermittent blurred vision and flashing lights in left eye x 1 week, hb right sided jaw pain x 5 days, sore throat since last night. Coronavirus screen: At this time, the client does not indicate any symptoms associated with coronavirus-19. Ebola Screen: No symptoms or risks identified at this time. Initial Sepsis Screen: Does the patient meet any 2 criteria? No. Patient's initial sepsis screen is negative. Does the patient have a suspected source of infection? No. Patient's initial sepsis screen is negative. Risk Assessment: Do you want to hurt yourself or someone else? Patient reports no desire to harm self or others. Onset of symptoms was May 15, 2020. 09:10 Method Of Arrival: Ambulatory hb 09:10 Acuity: TIO 3 hb Historical: - Allergies: 09:14 No Known Allergies; hb - Home Meds: 09:14 Protonix Oral [Active]; hb - PMHx: 09:14 GERD; hb 09:14 CVA; hb - PSHx: 09:14 Gastric Sleeve; hb 09:14 Neck Fusion; Knee Repleacement - Bilateral; hb - Immunization history:: Adult Immunizations up to date. - Social history:: Smoking status: Patient reports the use of cigarette tobacco products, smokes one pack cigarettes per day. Patient/guardian denies using alcohol, street drugs, The patient lives with family. - Family history:: not pertinent. - Hospitalizations: : No recent hospitalization is reported. Screenin:03 Abuse screen: Denies threats or abuse. Denies injuries from another. Nutritional sv screening: No deficits noted. Tuberculosis screening: No symptoms or risk factors identified. Fall Risk None identified. Assessment: 10:25 General: Appears in no apparent distress. comfortable, well developed, Behavior is sv calm, cooperative, appropriate for age. Pain: Complains of pain in right jaw and forehead Pain currently is 4 out of 10 on a pain scale. Is continuous. Neuro: Level of Consciousness is awake, alert, obeys commands, Oriented to person, place, time, situation, Moves all extremities. Full function Gait is steady, Speech is normal, Facial symmetry appears normal, Reports headache. Cardiovascular: Patient's skin is warm and dry. Respiratory: Airway is patent Respiratory effort is even, unlabored, Respiratory pattern is. EENT: Reports pain when swallowing. Derm: Skin is intact, Skin is pink, warm \T\ dry. 12:08 Reassessment: Patient appears in no apparent distress at this time. Patient and/or sv family updated on plan of care and expected duration. Pain level reassessed. Patient is alert, oriented x 3, equal unlabored respirations, skin warm/dry/pink. Patient states symptoms have improved. Vital Signs: 09:10 BP 154 / 88; Pulse 98; Resp 16; Temp 97.3; Pulse Ox 99% on R/A; Weight 107.5 kg; Height hb 5 ft. 2 in. (157.48 cm); Pain 4/10; 10:00 Pulse 75; Resp 16; Pulse Ox 99% ; sv 09:10 Body Mass Index 43.35 (107.50 kg, 157.48 cm) hb ED Course: 09:01 Patient arrived in ED. ds1 09:12 Triage completed. hb 09:14 Arm band placed on. hb 09:54 Michell Koehler, RN is Primary Nurse. sv 09:57 Tegan Kaye MD is Attending Physician. ma2 10:03 ED physician to see patient. sv 10:03 Patient has correct armband on for positive identification. Bed in low position. Call sv light in reach. Door closed. Head of bed elevated. 10:[address] via wheelchair. sv 10:22 Head Brain Wo Cont CT In Process Unspecified. EDMS 10:25 Inserted saline lock: 20 gauge in right antecubital area, using aseptic technique. sv Blood collected. Flushed right antecubital with 5 ml normal saline. 12:08 No provider procedures requiring assistance completed. IV discontinued, intact, sv bleeding controlled, No redness/swelling at site. Pressure dressing applied. Administered Medications: 10:25 Drug: NS 0.9% 1000 ml Route: IV; Rate: 1 bolus; Site: right antecubital; sv 11:30 Follow up: Response: No adverse reaction; IV Status: Completed infusion; IV Intake: sv 1000ml 10:25 Drug: Benadryl 25 mg Route: IVP; Site: right antecubital; sv 11:00 Follow up: Response: No adverse reaction sv 10:27 Drug: TORadol 30 mg Route: IVP; Site: right antecubital; sv 11:00 Follow up: Response: No adverse reaction sv 10:29 Drug: Reglan 10 mg Route: IVP; Site: right antecubital; sv 11:00 Follow up: Response: No adverse reaction sv Intake: 11:30 IV: 1000ml; Total: 1000ml. sv Outcome: 11:44 Discharge ordered by MD. coronel 12:08 Patient left the ED. sv 12:08 Discharged to home ambulatory. sv 12:08 Condition: stable 12:08 Discharge instructions given to patient, Instructed on discharge instructions, follow up and referral plans. medication usage, Demonstrated understanding of instructions, follow-up care, medications, Prescriptions given X 3. Signatures: Dispatcher [employer] Michell Rosales RN RN Ashley Becerra ds1 Samara Duong RN RN Tegan Kaye MD MD ma2
[2020-05-23 12:15] VITALS: BP 154/88; TEMP 97.3; O2SAT 99
[2020-05-23 14:24] LABS: Blood Morphology Comment NOTED (NOT SEEN); Platelet Estimate ADEQ; White Blood Cell Scan OK (OK)
[2020-05-23 14:25] LABS: Hypochromasia 1+
== END 2020-05-23 12:08 | disposition home or self-care (01) ==
LOC: ER 08:57
DX: N30.90 Cystitis, unspecified without hematuria (principal); Z98.84 Bariatric surgery status; K21.9 Gastro-esophageal reflux disease without esophagitis; F17.210 Nicotine dependence, cigarettes, uncomplicated; Z86.73 Personal history of transient ischemic attack (TIA), and cerebral infarction without residual deficits
CPT/HCPCS: 96361; 85025; 36415; 81025; 81003; 80053; 70450; 96375; 96374; 99284; J2765; J1200; J7030

== ENCOUNTER 2021-01-22 10:14 | Emergency (ER) | payer OTHER ==
--- OUTSIDE RECORDS SUMMARY | 2021-01-22 10:17 | XMS REPORT | Continuity of Care Document ---
:1970 Author Organization [facility] t Address [address] [place] [address] Care Team Providers Name Role Phone Aaron Mejia Attending Clinician Ziggy Ambrocio Attending Clinician Joey Rodriguez Attending Clinician Nilo Attending Clinician Payers Payer Name Policy Type Policy Number Effective Date Expiration Date S ource Problems Condition Condition Condition Status Onset Resolution Last Treating Co mments Source Name Details Category Date Date Treatment Clinician Date G43.109 - Diagnosis Active 2020-06-11 Memoria "MIGRAINE 06-04 14:07:00 l WITH AURA, G43.109 00:01: Her lacy NOT INTRA - 00 "MIGRAINE WITH AURA, NOT INTRA Active 06/04/2020 ANDREINA Em R51 - Diagnosis Active 2019-06-04 Mem oria HEADACHE 06-04 16:27:00 l R51 - 00:01: [place] HEADACHE 00 Active 06/04/2019 OPIAnselmo Friends[facility] d Acid Problem Resolve 2021-01-05 Catrachito darlin reflux d 23:15:27 l (finding) Acid [place] reflux (finding) Resolved Problem 01/05/2021 Medical Group,[facility] her Neuro, OPIAnselmo Friendswkadi d, ANDREINA Em Benign Problem Resolve 2021-01-05 Catrachito darlin hypertensi d 23:15:27 l on Benign [place] (disorder) hypertensi on (disorder) Resolved Problem 01/05/2021 [facility] [place] [facility], [facility] [place] Diabetes Problem Resolve 2021-01-05 Me moria mellitus d 23:15:27 l (disorder) Diabetes He rmann mellitus (disorder) Resolved Problem 01/05/2021 [facility] [place] [facility], [facility] [place] Hyperlipid Problem Resolve 2021-01-05 Memoria emia d 23:15:27 l (disorder) Sherwin n Hyperlipid emia (disorder) Resolved Problem 01/05/2021 [facility] [place] [facility], [facility] [place] Exercise-i Problem Active 2021-01-05 M emoria nduced 23:15:27 l asthma [place] (disorder) Exercise-i nduced asthma (disorder) Active Problem 01/05/2021 [facility] [place] [facility], [facility] [place], [facility] [place] Gastroesop Problem Active 2021-01-05 M emoria hageal 23:15:27 l reflux [place] disease Gastroesop without hageal esophagiti reflux s disease (disorder) without esophagiti s (disorder) Active Problem 01/05/2021 [facility] [place] [facility], [facility] [place], [facility] [place] Heavy Problem Active 2021-01-05 Memor ia cigarette 23:15:27 l smoker Heavy [place] (finding) cigarette smoker (finding) Active Problem 01/05/2021 [facility] [place] [facility], [facility] [place], [facility] [place] Herpes Problem Active 2021-01-05 Memor ia simplex 23:15:27 l with Herpes [place] complicati simplex on with (disorder) complicati on (disorder) Active Problem 01/05/2021 [facility] [place] [facility], [facility] [place] History of Problem Active 2021-01-05 M emoria - CVA 23:15:27 l (context-d History Her lacy ependent of - CVA category) (context-d ependent category) Active Problem 01/05/2021 [facility] [place] [facility], [facility] [place] Impaired Problem Active 2021-01-05 Mem oria fasting 23:15:27 l glycaemia Impaired Her lacy (disorder) fasting glycaemia (disorder) Active Problem 01/05/2021 [facility] [place] [facility] [place], [facility] [place] Mixed Problem Active 2021-01-05 Memor ia hyperlipid 23:15:27 l emia Mixed [place] (disorder) hyperlipid emia (disorder) Active Problem 01/05/2021 [facility] [place] [facility], [facility] [place] Morbid Problem Active 2021-01-05 Memor ia obesity 23:15:27 l (disorder) Morbid Herm sienna obesity (disorder) Active Problem 01/05/2021 [facility] [facility], [facility] [place] Patient Problem Active 2021-01-05 Catrachtio darlin non-compli 23:15:27 l ance - Patient [place] general non-compli (context-d ance - ependent general category) (context-d ependent category) Active Problem 01/05/2021 [facility] [facility], [facility] [place] Pes Problem Active 2021-01-05 Memor ia anserinus 23:15:27 l bursitis Pes [place] (disorder) anserinus bursitis (disorder) Active Problem 01/05/2021 [facility], [facility] [place] Migraine Problem Active 2021-01-05 Mem oria with aura 23:15:27 l (disorder) Migraine He rmann with aura (disorder) Active Problem 01/05/2021 [facility] Group,[facility] [facility] Sinus Problem Active 2021-01-05 Memor ia headache 23:15:27 l (finding) Sinus Sherwin n headache (finding) Active Problem 01/05/2021 Medical Group Allergies, Adverse Reactions, Alerts Allergy Allergy Status Severity Reaction(s) Onset Inactive Treating Comm ents Source Name Type Date Date Clinician No Known DA Active U [facility] [place] No Known DA Active U 2017-0 [facility]20 [place] [facility] Social History Social Habit Start Date Stop Date Quantity Comments Source Social History 2015-12-24 2015-12-24 [facility] Samuel werner 18:11:14 18:11:14 Medications Ordered Filled Start Stop Current Ordering Indication Dosage Frequency Signature Comments Components Source Medication Medication Date Date Medication? Clinician (SIG) Name Name pantoprazol Yes 40 mg = 1 M emoria e 40 MG 4-23 tab, PO, l Enteric 02:09: Daily, # Sherwin n Coated 00 90 tab, 0 Tablet Refill(s), [Protonix] Pharmacy: [facility] #[id number], 154.94, cm, 12/17/20 14:42:00 CDT, Height, 115.545, kg, 12/17/20 14:42:00 CDT, Weight predniSONE Yes See Memoria 10 mg oral 4-07 Instructio l tablet 20:05: ns, 4 tabs Ariana nn 00 PO daily x 3 days, then 3 tabs PO daily x 3 days, then 2 tabs PO daily x 3 days, then 1 tab PO daily x 3 days then stop., # 30 tab, 0 Refill(s), Pharmacy: [facility] #[id number], 154.94, cm, 12/17/20 14:42:00 CDT, Height, 115.545,.. . valacyclovi Yes 2 gm = 2 Me moria r 1000 MG 2-10 tab, PO, l Oral Tablet 19:59: Q12H, As He rmann [Valtrex] 00 soon as cold sore pops up, # 60 tab, 0 Refill(s), Pharmacy: [facility] #[id number], 154.94, cm, 10/22/20 13:39:00 [employer], Height, 113.818, kg, 10/22/20 13:39:00 [employer], Weight pantoprazol 2019-09 Yes = 1 tab, Me moria e 40 mg 1-17 PO, Daily, l oral 20:53: # 90 tab, [place] enteric 00 1 coated Refill(s), tablet Pharmacy: [facility] STORE [id number], 157.48, cm, 07/10/20 10:07:00 CDT, Height, 110, kg, 07/10/20 10:07:00 CDT, Weight 24 HR 2019-09 Yes 75 mg = 2 Memoria venlafaxine 0-29 cap, PO, l 37.5 MG 15:49: Daily, # Sherwin n Em 00 60 cap, 3 Release Refill(s), Capsule Pharmacy: [Effexor] [id number], 157.48, cm, 07/10/20 10:07:00 CDT, Height, 110, kg, 07/10/20 10:07:00 CDT, Weight topiramate 2019-09 No See Memoria 50 MG Oral 0-29 Instructio l Tablet 15:10: ns, 1/2 [place] [Topamax] 00 tab PO QAM, 1 tab PO QPM, 0 Refill(s) amitriptyli 2019-09 No 25 mg = 1 M emoria ne 25 mg 0-27 tab, PO, l oral tablet 16:33: Bedtime, # [place]am 00 90 tab, 1 Refill(s), Pharmacy: [id number], 154.94, cm, 06/03/20 10:17:00 CDT, Height, 113.182, kg, 06/03/20 10:17:00 CDT, Weight amitriptyli Yes 25 mg = 1 M emoria ne 25 mg 9-30 tab, PO, l oral tablet 18:20: Bedtime, # [place] 00 30 tab, 1 Refill(s), Pharmacy: [id number], 154.94, cm, 06/03/20 10:17:00 CDT, Height, 113.182, kg, 06/03/20 10:17:00 CDT, Weight topiramate Yes See Memoria 50 MG Oral 9-23 Instructio l Tablet 20:33: ns, 1/2 [place] [Topamax] 00 tab PO QAM and 1 full tab PO QHS, # 135 tab, 1 Refill(s), Pharmacy: [id number], 154.94, cm, 06/03/20 10:17:00 CDT, Height, 113.182, kg, 06/03/20 10:17:00 CDT, Weight topiramate 2020-0 No See Memoria 50 MG Oral 9-22 Instructio l Tablet 15:43: ns, 1/2 [place] [Topamax] 00 tab PO QAM and 1 full tab PO QHS, # 45 tab, 2 Refill(s), Pharmacy: [facility][id number], 154.94, cm, 06/03/20 10:17:00 CDT, Height, 113.182, kg, 06/03/20 10:17:00 CDT, Weight Sumatriptan 2019-0 Yes 50 mg = 1 M emoria 50 MG Oral 9-22 tab, PO, l Tablet 15:43: ONCE, PRN Sherwin n [Imitrex] 00 Headache, may repeat one time after 2 hours, # 9 tab, 3 Refill(s), Pharmacy: [id number], 154.94, cm, 06/03/20 10:17:00 CDT, Height, 113.182, kg, 06/03/20 10:17:00 CDT, Weight Ibuprofen 2019-0 Yes 400 mg = 2 Me moria 200 MG Oral 9-22 tab, PO, l Tablet 15:20: Q4H, PRN [place] [Advil] 00 Pain, # 120 tab, 0 Refill(s) pantoprazol 2019-0 Yes = 1 tab, Me moria e 40 mg 8-07 PO, Daily, l oral 14:56: # 90 tab, [place] enteric 00 0 coated Refill(s), tablet Pharmacy: [facility] [id number], 154.94, cm, 08/07/19 14:05:00 [employer], Height, 114.818, kg, 08/07/19 14:05:00 [employer], Weight {21 2020-0 Yes See Memoria (Methylpred 6-12 Instructio l nisolone 4 13:33: ns, PO, Herm sienna MG Oral 00 Take by Tablet mouth as [Medrol]) } directed Pack on label., [Medrol X 6 day, # Dosepak] 21 tab, 0 Refill(s), Pharmacy: [facility] #[id number], 154.94, cm, 08/07/19 14:05:00 [employer], Height, 114.818, kg, 11/26/19 14:05:00 [employer], Weight Cyclobenzap 2020-0 Yes 10 mg = 1 M emoria rine 6-12 tab, PO, l hydrochlori 13:33: Bedtime, He rmann de 10 MG 00 PRN for Oral Tablet spasm, # [Flexeril] 15 tab, 0 Refill(s), Pharmacy: [id number], 154.94, cm, 08/07/19 14:05:00 [employer], Height, 114.818, kg, 08/07/19 14:05:00 [employer], Weight Hydrochloro 2020-0 Yes 0 Memori a thiazide 6-11 Refill(s) l 12.5 MG 21:50: [place] Oral 00 Capsule non-formula 2020-0 Yes Refill(s) M emoria ry 6-11 0 l 21:50: [place] 00 Phentermine 2020-0 Yes 0 Memori a Hydrochlori 6-11 Refill(s) l de 37.5 MG 21:50: [place] Oral Tablet 00 Folic Acid 2020-0 Yes 0 Memoria 1 MG Oral 6-11 Refill(s) l Tablet 21:49: [place] 00 pantoprazol 2020-0 Yes = 1 tab, Me moria e 40 mg 5-04 PO, Daily, l oral 13:34: # 90 tab, [place] enteric 48 Pharmacy: [id number] Hydrochloro 0 Yes = 1 tab, Me moria thiazide 25 1-27 PO, Daily, l MG Oral 15:06: PRN [place] Tablet 37 NEEDED FOR SWELLING, # 90 tab, Pharmacy: [id number] Clarithromy 2018-09 Yes 500 mg = 1 Memoria roberto 500 MG 1-26 tab, PO, l Oral Tablet 20:13: Q12H, X 10 [place] [Biaxin] 00 day, # 20 tab, 0 Refill(s), Pharmacy: [facility] {2018-09 Yes See Memoria (Methylpred 1-26 Instructio l nisolone 4 20:13: ns, PO, Herm sienna MG Oral 00 Take by Tablet mouth as [Medrol]) } directed Pack on label., [Medrol X 6 day, # Dosepak] 1 Pack, 0 Refill(s), Pharmacy: [id number] Hydrochloro 2018-09 Yes See Memori a thiazide 25 0-21 Instructio l MG Oral 18:04: ns, 1 tab Ariana nn Tablet 00 PO daily x 3 days PRN swelling, # 30 tab, 2 Refill(s), Pharmacy: [id number] olopatadine Yes 1 drp, Catrachito darlin 1 MG/ML 9-23 BOTH EYES, l Ophthalmic 20:44: BID, X 10 He rmann Solution 00 day, # 5 [Patanol] ml, 0 Refill(s), Pharmacy: [id number] Hydrochloro Yes See Memori a thiazide 25 9-23 Instructio l MG Oral 20:44: ns, 1 tab Ariana nn Tablet 00 PO daily x 3 days PRN swelling, # 30 tab, 2 Refill(s), Pharmacy: [id number] tizanidine Yes 4 mg = 1 Mem oria 4 mg oral 6-24 tab, PO, l tablet 19:44: Bedtime, [place]am 00 PRN muscle spasm, # 30 tab, 0 Refill(s), Pharmacy: [id number] {21 Yes See Memoria (Methylpred 6-24 Instructio l nisolone 4 19:44: ns, PO, as H ermann MG Oral 00 directed Tablet on package [Medrol]) } labeling. Pack Take with [Medrol food, # 1 Dosepak] Pack, 0 Refill(s), Pharmacy: [id number] valacyclovi 2018- Yes 500 mg = 1 Memoria r 500 MG 5-30 tab, PO, l Oral Tablet 18:52: Daily, # He rmann [Valtrex] 00 90 tab, 3 Refill(s), Pharmacy: [id number] pantoprazol 2018- Yes = 1 tab, Me moria e 40 mg 5-30 PO, Daily, l oral 18:46: # 90 tab, [place] enteric 19 3 coated Refill(s), tablet Pharmacy: [id number] albuterol 2018- Yes 2 puff, Memor ia 90 mcg/inh 5-30 INHALATION l inhalation 18:46: , Q4H, PRN H ermann aerosol 18 for wheezing, # 9 gm, 2 Refill(s), Pharmacy: [id number] pantoprazol Yes = 1 tab, Me moria e 40 mg 3-27 PO, Daily, l oral 23:14: # 30 tab, [place] enteric 55 0 coated Refill(s), tablet [id number] pantoprazol 2017-09 No 40 mg = 1 M emoria e 40 MG 0-04 tab, PO, l Enteric 19:37: Daily, # Sherwin n Coated 00 90 tab, 1 Tablet Refill(s), [Protonix] [id number] Ciprofloxac Yes 4 drp, Catrachito darlin in 3 MG/ML 6- LEFT EAR, l / 16:38: BID, X 7 [place] Dexamethaso 00 day, # 1 ne 1 MG/ML btl, 0 Otic Refill(s), Suspension [facility]dex[id number] Aspirin 81 2017- Yes 81 mg = 1 Me moria MG Enteric 6-14 tab, PO, l Coated 13:11: Daily, [place] Tablet 00 OTC, # 999,999 tab, 0 Refill(s), other albuterol Yes 2 puff, Memor ia 90 mcg/inh 6-14 INHALATION l inhalation 13:09: , Q4H, PRN H ermann aerosol 00 for wheezing, # 9 gm, 2 Refill(s), [id number] pantoprazol Yes 40 mg = 1 M emoria e 40 MG 5-04 tab, PO, l Enteric 18:43: Daily, # Sherwin n Coated 51 30 tab, 0 Tablet Refill(s), [Protonix] Pharmacy: [id number] Fluticasone Yes See Memori a propionate 1-02 Instructio l 0.05 15:21: ns, # 16 [place] MG/ACTUAT 09 mL, Metered Refill(s) Dose Nasal 1, INHALE [place] 2 SPRAYS IN EACH NOSTRIL ONCE DAILY NEEDED FOR CONGESTION ., Pharmacy: [id number] Fluticasone 2016- Yes 2 spray, Me moria propionate 1-13 NASAL, l 0.05 22:30: Daily, PRN [place] MG/ACTUAT 00 Nasal Metered Congestion Dose Nasal , in each [place] nostril, # [Flonase] 16 gm, 1 Refill(s), Pharmacy: [id number] clarithromy 2017- Yes 500 mg = 1 Memoria roberto 500 mg 1-13 tab, PO, l oral tablet 22:30: Q12H, X 10 [place] 00 day, # 20 tab, 0 Refill(s), Pharmacy: [id number] Bromphenira 2016-09 Yes 5 mL, PO, M emoria mine 1-13 Q6H, PRN l Maleate 0.4 22:30: for cough H ermann MG/ML / 00 and Dextrometho congestion rphan , X 10 Hydrobromid day, # 120 e 2 MG/ML / mL, 0 Pseudoephed Refill(s), rine Pharmacy: Hydrochlori [place] de 6 MG/ML [facility] #[id number] Oral Solution Vital Signs Vital Name Observation Time Observation Value Comments Source Systolic (mm Hg) 2020-12-17 19:42:00 Catrachito rial [place] Diastolic (mm Hg) 2020-12-17 19:42:00 Mem orial [place] Heart Rate 2020-12-17 19:42:00 [facility] [place] Temperature Oral (F) 2020-12-17 19:42:00 98.7 F [facility] [place] Height 2020-12-17 19:42:00 154.94 cm [facility] [place] Weight 2020-12-17 19:42:00 [facility] [place] BMI Calculated 2020-12-17 19:42:00 Memori al [place] Systolic (mm Hg) 2020-10-22 19:39:00 Catrachito rial [place] Diastolic (mm Hg) 2020-10-22 19:39:00 Mem orial [place] Heart Rate 2020-10-22 19:39:00 [facility] [place] Temperature Oral (F) 2020-10-22 19:39:00 98.6 F [facility] [place] Height 2020-10-22 19:39:00 154.94 cm [facility] [place] Weight 2020-10-22 19:39:00 [facility] [place] BMI Calculated 2020-10-22 19:39:00 Memori al [place] Systolic (mm Hg) 2020-07-10 15:07:00 Catrachito rial [place] Diastolic (mm Hg) 2020-07-10 15:07:00 Mem orial [place] Heart Rate 2020-07-10 15:07:00 [facility] [place] Respitory Rate 2020-07-10 15:07:00 Memori al [place] Height 2020-07-10 15:07:00 157.48 cm [facility] [place] Weight 2020-07-10 15:07:00 [facility] [place] BMI Calculated 2020-07-10 15:07:00 Memori al [place] Systolic (mm Hg) 2020-06-03 15:17:00 Catrachito rial [place] Diastolic (mm Hg) 2020-06-03 15:17:00 Mem orial [place] Heart Rate 2020-06-03 15:17:00 [facility] [place] Temperature Oral (F) 2020-06-03 15:17:00 98.6 F [facility] [place] Height 2020-06-03 15:17:00 154.94 cm [facility] [place] Weight 2020-06-03 15:17:00 [facility] [place] BMI Calculated 2020-06-03 15:17:00 Memori al [place] Systolic (mm Hg) 2019-08-07 20:05:00 Catrachito rial [place] Diastolic (mm Hg) 2019-08-07 20:05:00 Mem orial [place] Heart Rate 2019-08-07 20:05:00 [facility] [place] Temperature Oral (F) 2019-08-07 20:05:00 97.9 F [facility] [place] Height 2019-08-07 20:05:00 154.94 cm [facility] [place] Weight 2019-08-07 20:05:00 [facility] [place] BMI Calculated 2019-08-07 20:05:00 Memori al [place] Systolic (mm Hg) 2019-06-04 20:25:00 Catrachito rial [place] Diastolic (mm Hg) 2019-06-04 20:25:00 Mem orial [place] Heart Rate 2019-06-04 20:25:00 [facility] [place] Temperature Oral (F) 2019-06-04 20:25:00 98.1 F [facility] [place] Height 2019-06-04 20:25:00 154.94 cm [facility] [place] Weight 2019-06-04 20:25:00 [facility] [place] BMI Calculated 2019-06-04 20:25:00 Memori al [place] Height 2019-03-05 19:23:00 154.94 cm [facility] [place] Weight 2019-03-05 19:23:00 [facility] [place] BMI Calculated 2019-03-05 19:23:00 Memori al [place] Systolic (mm Hg) 2019-03-05 19:23:00 Catrachito rial [place] Diastolic (mm Hg) 2019-03-05 19:23:00 Mem orial [place] Respitory Rate 2019-03-05 19:23:00 Memori al [place] Temperature Oral (F) 2019-03-05 19:23:00 98.3 F [facility] [place] Heart Rate 2019-03-05 19:23:00 [facility] [place] BMI Calculated 2019-02-08 18:32:00 Memori al [place] Weight 2019-02-08 18:32:00 [facility] [place] Heart Rate 2019-02-08 18:32:00 [facility] [place] Systolic (mm Hg) 2019-02-08 18:32:00 Catrachito rial [place] Diastolic (mm Hg) 2019-02-08 18:32:00 Mem orial [place] Respitory Rate 2019-02-08 18:32:00 Memori al [place] Temperature Oral (F) 2019-02-08 18:32:00 98.2 F [facility] [place] Height 2019-02-08 18:32:00 154.94 cm [facility] [place] Height 2018-03-06 16:25:00 154.94 cm [facility] [place] Weight 2018-03-06 16:25:00 [facility] [place] BMI Calculated 2018-03-06 16:25:00 Memori al [place] Systolic (mm Hg) 2018-03-06 16:25:00 Catrachito rial [place] Diastolic (mm Hg) 2018-03-06 16:25:00 Mem orial [place] Temperature Oral (F) 2018-03-06 16:25:00 98.2 F [facility] [place] Heart Rate 2018-03-06 16:25:00 [facility] [place] Weight 2018-02-23 12:40:00 [facility] [place] BMI Calculated 2018-02-23 12:40:00 Memori al [place] Height 2018-02-23 12:40:00 154.94 cm [facility] [place] Heart Rate 2018-02-23 12:40:00 [facility] [place] Temperature Oral (F) 2018-02-23 12:40:00 98.2 F [facility] [place] Systolic (mm Hg) 2018-02-23 12:40:00 Catrachito rial [place] Diastolic (mm Hg) 2018-02-23 12:40:00 Mem orial [place] Systolic (mm Hg) 2017-11-21 20:45:00 Catrachito rial [place] Diastolic (mm Hg) 2017-11-21 20:45:00 Mem orial [place] Respitory Rate 2017-11-21 20:45:00 Memori al [place] Heart Rate 2017-11-21 20:45:00 [facility] [place] BMI Calculated 2017-11-21 20:45:00 Memori al [place] Weight 2017-11-21 20:45:00 [facility] [place] Temperature Oral (F) 2017-11-21 20:45:00 98.0 F [facility] [place] Height 2017-11-21 20:45:00 157.48 cm [facility] [place] BMI Calculated 2017-07-25 22:18:00 Memori al [place] Height 2017-07-25 22:18:00 154.94 cm [facility] [place] Systolic (mm Hg) 2017-07-25 22:18:00 Catrachito rial [place] Diastolic (mm Hg) 2017-07-25 22:18:00 [facility] orial [place] Temperature Oral (F) 2017-07-25 22:18:00 98 F [facility] [place] Weight 2017-07-25 22:18:00 [facility] [place] Heart Rate 2017-07-25 22:18:[address] [facility] [place] [place] Procedures Procedure Date / Time Performed Performing Clinician Della luna Knee replacement 2017-11-10 00:00:00 [facility] jan Repair of meniscus 2008-09-12 06:00:00 [facility] [place] Fusion of joint of 2007-09-12 00:00:[address] [facility] [place] [place] cervical spine with internal fixation by posterior approach Bariatric operative [facility] procedure Encounters Start End Encounter Admission Attending Care Care Encounter Source Date/Time Date/Time Type Type Clinicians Facility Department ID 2021-01-02 2021-01-03 Outpatient [facility] [id number] 07:54:42 23:59:59 2020-12-30 2020-12-31 Outpatient [facility] [id number] 11:52:37 23:59:59 23 2020-12-17 2020-12-17 Outpatient Jackie [facility] [id number] 14:30:00 23:59:59 Danny Aaron 17 2020-10-22 2020-10-22 Outpatient Jackie [facility] [id number] 13:45:00 23:59:59 Danny Aaron 16 2020-08-21 2020-08-21 Outpatient MADONNA AmbrocioMISCHER M[facility]ISCHER [id number] 09:30:00 09:30:00 Jacky Jasmina Trinh 2020-07-28 2020-07-29 Outpatient [facility] [id number] 07:57:18 23:59:59 22 2020-07-28 2020-07-29 Outpatient [facility] [id number] 07:56:57 23:59:59 21 2020-07-10 2020-07-10 Outpatient Cristóbal M[facility]ISCH[facility] M[facility] [id number] 10:00:00 23:59:59 Jackylianet Trinh 2020-07-07 2020-07-08 Outpatient [facility] [id number] 10:35:25 23:59:59 20 2020-06-10 2020-06-11 Outpatient [facility] [id number] 14:07:41 14:07:41 29 2020-06-09 2020-06-10 Outpatient [facility] [id number] 11:45:06 23:59:59 19 2020-06-07 2020-06-07 Outpatient Jackie [facility] M[facility]IP [id number] 06:38:00 23:59:00 Danny Aaron 2020-06-04 2020-06-05 Outpatient [facility] [id number] 07:33:26 23:59:59 18 2020-06-03 2020-06-03 Outpatient Jackie [facility] [id number] 10:15:00 23:59:59 Danny Aaron 13 2020-04-18 2020-04-19 Outpatient [facility] [id number] 07:45:38 23:59:59 17 2020-02-22 2020-02-23 Outpatient [facility] [id number] 08:52:50 08:52:50 25 2020-02-22 2020-02-22 Outpatient Jennifer, [facility] [id number] 08:15:00 23:59:59 Osman Cook 2020-02-21 2020-02-22 Outpatient [facility] [id number] 16:48:44 16:48:44 24 2020-01-14 2020-01-15 Outpatient [facility] [id number] 08:04:38 23:59:59 16 2019-10-08 2019-10-09 Outpatient [facility] [id number] 07:48:39 23:59:59 15 2019-08-20 2019-08-21 Outpatient [facility] [id number] 14:36:04 23:59:59 14 2019-08-08 2019-08-09 Outpatient [facility] [id number] 08:32:23 08:32:23 20 2019-08-07 2019-08-07 Outpatient Jackie, [facility] [id number] 13:45:00 23:59:59 Danny Aaron 10 2019-08-07 2019-08-07 Outpatient Jackie [id number] 15:00:00 23:59:00 Danny Aaron [id number] 2019-07-02 2019-07-03 Outpatient [facility] [id number] 08:33:02 23:59:59 13 2019-06-06 2019-06-07 Outpatient [facility] [id number] 18:17:25 18:17:25 18 2019-06-04 2019-06-04 Outpatient Jackie, [facility] [id number] 15:30:00 23:59:59 Danny Aaron 2019-06-04 2019-06-04 Outpatient Jackie [id number] 16:18:00 23:59:00 Danny Aaron [id number] 2019-04-18 2019-04-19 Outpatient [facility] [id number] 14:57:56 14:57:56 17 2019-03-28 2019-03-29 Outpatient [facility] [id number] 08:17:54 23:59:59 12 2019-03-05 2019-03-05 Outpatient Corcoran, [facility] [id number] 14:30:00 23:59:59 Fina 08 2019-02-08 2019-02-08 Outpatient Nilo [facility] [id number] 13:30:00 23:59:59 Fina 07 2019-02-06 2019-02-07 Outpatient [facility] [id number] 07:58:27 23:59:59 11 2018-12-06 2018-12-07 Outpatient [facility] [id number] 08:15:00 23:59:59 10 2018-06-15 2018-06-16 Outpatient [facility] [id number] 13:03:00 23:59:59 09 2018-03-06 2018-03-06 Outpatient Jackie [facility] [id number] 11:30:00 23:59:59 Danny Aaron 06 2018-02-23 2018-02-23 Outpatient Jackie, [facility] [id number] 08:00:00 23:59:59 Danny Aaron 05 2018-02-13 2018-02-14 Outpatient [facility] [id number] 09:10:00 23:59:59 08 2018-01-13 2018-01-14 Outpatient [facility] [id number] 09:36:00 23:59:59 07 2017-11-25 2017-11-26 Outpatient [facility] [id number] 16:44:00 23:59:59 06 2017-11-24 2017-11-25 Outpatient [facility] [id number] 14:18:00 23:59:59 05 2017-11-23 2017-11-24 Outpatient [facility] [id number] 17:02:00 23:59:59 04 2017-11-21 2017-11-21 Outpatient Jennifer, [facility] [id number] 15:30:00 23:59:59 Osman Cook 2017-11-18 2017-11-19 Outpatient [facility] [id number] 14:05:00 23:59:59 03 2017-10-11 2017-10-12 Outpatient [facility] [id number] 11:27:00 23:59:59 02 2017-09-13 2017-09-14 Outpatient [facility] [id number] 07:50:00 23:59:59 01 2017-07-25 2017-07-25 Outpatient ANGELES Mejia [facility] [id number] 16:00:00 23:59:59 Danny Walker 03 Results Test Description Test Time Test Comments Results Result Comments Source ANEMIA STUDY 2020-07-11 530 Madan lacy 19:29:00 HEMATOLOGY 2020-07-11 29 Madan plata 19:29:00 BASIC METABOLIC PANEL 2018-10-25 07:50:00 Test Item [...] measure: (test code = GFR) mL/min/1.7 3 [id number] Range:Healthy A dults >90 mL/min/1.73 m2 For Chronic Kidney Disease: Stage II Mi ld Decrease in GFR 60-9 0 Stage III Moderate Decrease in GFR 30-59 Stage IV Severe Decrease in GFR 15-29 Stage V Kidney Failure <15 CREATININE (test code = CREAT) 0.62 mg/dL 0.55-1.30 N CALCIUM (test code = CA) 8.7 mg/dL 8.2-10.1 N HGB [id number] 05:56:00 Test Item Value Reference Range Interpretation Comments HEMOGLOBIN (test code = HGB) 10.6 g/dL 12-16 L HEMATOCRIT (test code = HCT) 33.8 % 37-47 L - XR KNEE 1 OR 2 V [id number] 11:06:00 Patient Name: KENTRELL PEÑA Unit No: [id number] EXAMS: CPT CODE: [id number] XR KNEE 1 OR 2 V LT [id number] LEFT KNEE 2 VIEWS PORTABLE COMMENT: 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 at 1106 Reported and signed by: Dawit Vincent MD CC: Hai Gaines MD Technologist: SHUKRI VALLE (RT.R) Transcribed D/ (7202) MariyaL [facility] NAME: KENTRELL PEÑA [address] [facility] PHYS: Hai An MD : 1970 AGE: 47 SEX: F [place], [place] [address] LOC: Y.311 A PHONE #: [phone] EXAM DATE: 10/24/2018 STATUS: [facility] [place] [facility] FAX #: [phone] #: D/C DT PAGE 1 Signed Report Patient Name: KENTRELL PEÑA Unit No: [id number] EXAMS: CPT CODE: [id number] XR KNEE 1 OR 2 V LT [address]953 <Continued> Orig Print D/T: S: 10/24/2018 (4920) [facility] NAME: KENTRELL PEÑA [address] [facility] PHYS: Hai An MD : 1970 AGE: 47 SEX: F [place] [address] LOC: Y.311 A PHONE #: [phone] EXAM DATE: 10/24/2018 STATUS: [facility] [place] FAX #: [phone] RAD #: D/C DT PAGE 2 Signed ReportBASI METABOLIC [id number] 17:12:00 Test Item Value Reference Range Interpretation [...] RATE (test code = GFR) mL/mi n/1.73 [id number] Range:Healthy Adults >90 mL/min/1.73 m2 For Chronic Kidney Disease: St age II Mild Decrease in GFR 60-90 St age III Moderate Decrease in GFR 30-59 Stage IV Severe Decre ase in GFR 15- 29 Stage V Kidney Failure <15 CREATININE (test code 0.52 mg/dL 0.55-1.30 L = CREAT) CALCIUM (test code = 9.8 mg/dL 8.2-10.1 N CA) CBC W/AUTO [id number] 16:46:00 Test Item Value Reference Range Interpretation [...]
[2021-01-22] MEDS ORDERED: ASPIRIN 81 MG CHEWABLE TABLET ONE (11:00)
[2021-01-22] MEDS ORDERED: NA CHLORIDE 0.9% 1,000 ML ONE (11:00)
[2021-01-22 11:19] LABS: Absolute Lymphocytes (CBC) 1.7 K/uL (0.7-4.9); Basophils % 0.8 % (0-1.3); Hematocrit 32.7 % (36.0-45.0); Lymphocytes % 21.8 % (15.3-44.8); MPV 9.2 fL (7.6-11.3); Protime INR 1.12; RBC Red Blood Cell Count 4.88 M/uL (3.86-4.86)
[2021-01-22 11:31] LABS: ALT/SGPT 15 U/L (12-78); AST/SGOT 5 U/L (15-37); Alkaline Phosphatase 144 U/L (45-117); BUN Blood Urea Nitrogen 10 mg/dL (7-18); Bicarbonate 23 mmol/L (21-32); Bilirubin Direct < 0.1 mg/dL (0-0.2); Bilirubin Total 0.3 mg/dL (0.2-1.0); Glucose Level 239 mg/dL (74-106); Magnesium 1.9 mg/dL (1.8-2.4); NT PRO-BNP 114 pg/mL (<125); Potassium 3.8 mmol/L (3.5-5.1); Protein, Total 7.5 g/dL (6.4-8.2); Sodium Level 136 mmol/L (136-145); Troponin (Emerg Dept Use Only) < 0.02 ng/mL (0.0-0.045)
--- NOTE | 2021-01-22 11:38 | RAD REPORT ---
EXAM DESCRIPTION: RAD - Chest Single View - 01/22/2021 11:12 am CLINICAL HISTORY: Dyspnea;Chest pain COMPARISON: None TECHNIQUE: AP portable chest image was obtained 01/22/2021 11:12 am . FINDINGS: Lungs are clear. Detail is limited portable technique large body habitus. Heart and vasculature are normal. No measurable pleural effusion and no pneumothorax. No acute bony a bnormality seen. No acute aortic findings suspected. IMPRESSION: No acute cardiopulmonary process.
--- NOTE | 2021-01-22 11:51 | RAD REPORT ---
EXAM DESCRIPTION: CT - Chest For Pe Angio - 01/22/2021 11:32 am CLINICAL HISTORY: Congestion;Chest pain COMPARISON: Chest Single View dated 01/22/2021 TECHNIQUE: Dynamically enhanced 3 mm thick images of the chest were obtained during administration o f approximately 150mL Isovue 370 IV contrast. Coronal and oblique MIP reconstruction images were gene rated and reviewed. Exam utilizes a protocol to evaluate the pulmonary arterial tree. All CT scans are performed using dose optimization technique as appropriate and may include automated exposure control or mA/KV adjustment according to patient size. FINDINGS: No pulmonary emboli are identified. The aorta as imaged shows no acute or suspicious finding. No pericardial thickening or effusion. Hear t size is upper normal. No infiltrate or mass in the lung parenchyma. No pleural effusion or pleural thickening. No mediastinal or hilar suspicious masses. No chest wall masses or abnormal axillary lymphadenopathy. Limited upper abdomen imaging shows gastric sleeve surgical changes with small hiatal hernia. A left adrenal 3 centimeter x 2 centimeter mass is present. Attenuation value is near 0 Hounsfield units com patible with adrenal adenoma diagnosis. IMPRESSION: No pulmonary emboli identified. No other significant or suspicious findings.Nonacute findings detailed in the body of report.
[2021-01-22 11:56] LABS: Anisocytosis 1+; Blood Morphology Comment NOTED (NOT SEEN); Hypochromasia 2+; Platelet Estimate ADEQ; Polychromasia SLIGHT; White Blood Cell Scan OK (OK)
[2021-01-22 12:18] LABS: SARS-COV-2 RT PCR NEGATIVE (NEGATIVE)
--- NOTE | 2021-01-22 13:16 | EDPHYS ---
Physician Documentation [facility] Name: Samara Hopson Age: 50 yrs Sex: Female : 1970 Arrival Date: 01/22/2021 Time: 10:18 Bed 7 Private MD: ED Physician Shamar Mendes HPI: 01/22 13:09 This 50 yrs old Female presents to ER via Ambulatory with complaints of blossom Shoulder Pain, Shortness Of Breath. 13:09 The patient or guardian complains of decreased range of motion. right shoulder, right blossom trapezius and right clavicle. Historical: - Allergies: 10:38 No Known Allergies; em - PMHx: 10:38 CVA; GERD; em - PSHx: 10:38 Gastric Sleeve; Neck Fusion; Knee Repleacement - Bilateral; em - Immunization history:: Adult Immunizations up to date. - Social history:: Smoking status: Patient reports the use of cigarette tobacco products, smokes one pack cigarettes per day. ROS: 13:10 Constitutional: Negative for fever, chills, and weight loss, Eyes: Negative for injury, blossom pain, redness, and discharge, ENT: Negative for injury, pain, and discharge, Neck: Negative for injury, pain, and swelling, Cardiovascular: Negative for chest pain, palpitations, and edema, Abdomen/GI: Negative for abdominal pain, nausea, vomiting, diarrhea, and constipation, Back: Negative for injury and pain, : Negative for injury, bleeding, discharge, and swelling, MS/Extremity: Negative for injury and deformity, Skin: Negative for injury, rash, and discoloration, Neuro: Negative for headache, weakness, numbness, tingling, and seizure, Psych: Negative for depression, anxiety, suicide ideation, homicidal ideation, and hallucinations, Allergy/Immunology: Negative for hives, rash, and allergies, Endocrine: Negative for neck swelling, polydipsia, polyuria, polyphagia, and marked weight changes, Hematologic/Lymphatic: Negative for swollen nodes, abnormal bleeding, and unusual bruising. 13:10 Respiratory: Positive for cough, shortness of breath, wheezing, expiratory. Exam: 13:10 Constitutional: This is a well developed, well nourished patient who is awake, alert, blossom and in no acute distress. Head/Face: Normocephalic, atraumatic. Eyes: Pupils equal round and reactive to light, extra-ocular motions intact. Lids and lashes normal. Conjunctiva and sclera are non-icteric and not injected. Cornea within normal limits. Periorbital areas with no swelling, redness, or edema. ENT: Nares patent. No nasal discharge, no septal abnormalities noted. Tympanic membranes are normal and external auditory canals are clear. Oropharynx with no redness, swelling, or masses, exudates, or evidence of obstruction, uvula midline. Mucous membranes moist. Neck: Trachea midline, no thyromegaly or masses palpated, and no cervical lymphadenopathy. Supple, full range of motion without nuchal rigidity, or vertebral point tenderness. No Meningismus. Chest/axilla: Normal chest wall appearance and motion. Nontender with no deformity. No lesions are appreciated. Cardiovascular: Regular rate and rhythm with a normal S1 and S2. No gallops, murmurs, or rubs. Normal PMI, no JVD. No pulse deficits. Abdomen/GI: Soft, non-tender, with normal bowel sounds. No distension or tympany. No guarding or rebound. No evidence of tenderness throughout. Back: No spinal tenderness. No costovertebral tenderness. Full range of motion. Skin: Warm, dry with normal turgor. Normal color with no rashes, no lesions, and no evidence of cellulitis. MS/ Extremity: Pulses equal, no cyanosis. Neurovascular intact. Full, normal range of motion. Neuro: Awake and alert, GCS 15, oriented to person, place, time, and situation. Cranial nerves II-XII grossly intact. Motor strength 5/5 in all extremities. Sensory grossly intact. Cerebellar exam normal. Normal gait. Psych: Awake, alert, with orientation to person, place and time. Behavior, mood, and affect are within normal limits. 13:10 Respiratory: the patient does not display signs of respiratory distress, Respirations: normal, no acute changes, Breath sounds: bronchial sounds, that are mild, are scattered, rhonchi, that are mild, are scattered, wheezing: expiratory Respiratory rate: 18 13:10 Musculoskeletal/extremity: Exam is negative for ROM: intact in all extremities, Circulation is intact in all extremities. Sensation intact. Compartment Syndrome exam of affected extremity: is normal. DVT Exam: No signs of deep vein thrombosis. no pain, no swelling, no tenderness, negative Homans' sign noted on exam, no appreciated bluish discoloration, no erythema, no increased warmth. 13:20 ECG was reviewed by the Attending Physician. [facility] Vital Signs: 10:35 BP 194 / 95; Pulse 102; Resp 20; Temp 98.5(O); Pulse Ox 97% on R/A; Weight 113.4 kg; em Height 5 ft. 2 in. (157.48 cm); Pain 5/10; 10:44 BP 144 / 91; em 11:45 BP 138 / 94; Pulse 69; Resp 16; Pulse Ox 98% on R/A; em 12:51 BP 151 / 105; Pulse 89; Resp 18; Pulse Ox 99% on R/A; em 10:35 Body Mass Index 45.73 (113.40 kg, 157.48 cm) em MDM: 10:32 Patient medically screened. [facility] 13:12 Differential diagnosis: DJD. Differential Diagnosis: Bronchitis Influenza Upper blossom Respiratory Infection Sinusitis Asthma Exacerbation Viral Syndrome Pneumonia. Data reviewed: vital signs, nurses notes, lab test result(s), EKG, radiologic studies, CT scan, plain films. Data interpreted: fur tanner: rate is 89 beats/min, rhythm is regular, Pulse oximetry: on room air is 99 %. Test interpretation: by ED physician or midlevel provider: ECG, plain radiologic studies. 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 01/22 10:31 Order name: Basic Metabolic Panel [facility] 01/22 10:31 Order name: CBC with Diff [facility] 01/22 10:31 Order name: LFT's [facility] 01/22 10:31 Order name: Magnesium; Complete Time: 12:40 [facility] 01/22 10:31 Order name: NT PRO-BNP; Complete Time: 12:40 [facility] 01/22 10:31 Order name: PT-INR; Complete Time: 12:39 [facility] 01/22 10:31 Order name: Troponin (emerg Dept Use Only); Complete Time: 12:40 [facility] 01/22 10:31 Order name: Blood Culture Adult (2) [facility] 01/22 10:37 Order name: Basic Metabolic Panel; Complete Time: 12:39 [facility] 01/22 10:37 Order name: CBC with Automated Diff; Complete Time: 12:39 [facility] 01/22 10:37 Order name: Liver (Hepatic) Function; Complete Time: 12:40 [facility] 01/22 11:33 Order name: CBC Smear Scan; Complete Time: 12:40 [facility] 01/22 10:31 Order name: XRAY Chest (1 view); Complete Time: 12:40 [facility] 01/22 10:31 Order name: EKG; Complete Time: 10:37 [facility] 01/22 10:31 Order name: Cardiac monitoring; Complete Time: 10:39 [facility] 01/22 10:31 Order name: EKG - Nurse/Tech; Complete Time: 10:39 [facility] 01/22 10:31 Order name: Labs collected and sent; Complete Time: 10:39 [facility] 01/22 10:31 Order name: O2 Per Protocol; Complete Time: 10:39 [facility] 01/22 10:31 Order name: CT Chest For PE Angio; Complete Time: 12:40 [facility] 01/22 12:18 Order name: COVID-19/FLU A+B; Complete Time: 12:40 [facility] 01/22 10:31 Order name: O2 Sat Monitoring; Complete Time: 10:39 [facility] 01/22 10:31 Order name: Urine Dipstick-Ancillary (obtain specimen); Complete Time: 10:44 [facility] EC:20 Rate is 102 beats/min. Rhythm is regular. QRS [place] is Normal. [place] interval is normal. [facility] QRS interval is normal. QT interval is normal. No Q waves. T waves are Normal. No ST changes noted. Clinical impression: Normal ECG and No evidence of ischemia. Interpreted by me. Reviewed by me. Administered Medications: 10:44 Drug: Aspirin Chewable Tablet 162 mg Route: PO; em 10:54 Follow up: Response: No adverse reaction em 11:02 Drug: NS 0.9% 1000 ml Route: IV; Rate: 125 ml/hr; Site: right antecubital; em 13:25 Follow up: IV Status: Order to discontinue infusion; IV Intake: 200ml em 13:17 Drug: Decadron - Dexamethasone 10 mg Route: IVP; Site: right antecubital; em 13:25 Follow up: Response: No adverse reaction em 13:18 Drug: Zithromax (azithromycin) 500 mg Route: PO; em 13:25 Follow up: Response: No adverse reaction em 13:20 Drug: Xopenex (levalbuterol) 1.25 mg Route: Inhalation; em 13:47 Follow up: Response: No adverse reaction em 13:20 Drug: AtroVENT (ipratropium) Aerosol 0.5 mg Route: Inhalation; em 13:47 Follow up: Response: No adverse reaction em 13:21 Drug: Pepcid (famotidine) 20 mg Route: IVP; Site: right antecubital; em 13:47 Follow up: Response: No adverse reaction em Disposition: 01/22/21 13:16 Discharged to Home. Impression: Pain in right shoulder, Bronchitis, not specified as acute or chronic, Tobacco abuse counseling, Tobacco use, Gastro-esophageal reflux disease. - Condition is Stable. - Discharge Instructions: Acute Bronchitis, Adult, Musculoskeletal Pain, Shoulder Pain, Steps to Quit Smoking, Smoking Hazards, Upper Respiratory Infection, Adult, Shoulder Pain, Ggns-[id number]-[id number], Acute Bronchitis, Deow-xz-Kybm, Cough, Adult, Ousr-zm-Sjth, Aspirin and Your Heart, Cough, Adult. - Prescriptions for dexamethasone 2 mg Oral tablet - take 1 tablet by ORAL route 3 times per day; 15 tablet. Pepcid 20 mg Oral Tablet - take 1 tablet by ORAL route every 12 hours for 10 days; 20 tablet. Albuterol Sulfate 90 mcg/actuation Inhalation - inhale 2 puff by INHALATION route every 4-6 hours; 1 Inhaler. Zithromax 500 mg Oral Tablet - take 1 tablet by ORAL route once daily for 4 days; 4 tablet. - Medication Reconciliation Form, Thank You Letter, Antibiotic Education, Prescription Opioid Use form. - Follow up: Private Physician; When: 2 - 3 days; Reason: Recheck today's complaints, Continuance of care, Re-evaluation by your physician. Follow up: Elias Perez MD; When: 2 - 3 days; Reason: Recheck today's complaints, Continuance of care, Re-evaluation by your physician. - Problem is new. - Symptoms have improved. Signatures: Dispatcher [employer] Shamar Hernadez MD MD cha Munoz, Edgar, RN RN em Corrections: (The following items were deleted from the chart) 11:33 10:37 Influenza Screen (A \T\ B)+BA.LAB.BRZ ordered. EDMS EDMS 11:33 10:37 CORONAVIRUS+MR.LAB.BRZ ordered. EDMS EDMS 13:48 13:16 01/22/2021 13:16 Discharged to Home. Impression: Pain in right shoulder; em Bronchitis, not specified as acute or chronic; Tobacco abuse counseling; Tobacco use; Gastro-esophageal reflux disease. Condition is Stable. Forms are Medication Reconciliation Form, Thank You Letter, Antibiotic Education, Prescription Opioid Use. Follow up: Private Physician; When: 2 - 3 days; Reason: Recheck today's complaints, Continuance of care, Re-evaluation by your physician. Follow up: Elias Perez; When: 2 - 3 days; Reason: Recheck today's complaints, Continuance of care, Re-evaluation by your physician. Problem is new. Symptoms have improved. blossom
--- NOTE | 2021-01-22 13:16 | ER ---
Nurse's Notes [facility] Name: Samara Hopson Age: 50 yrs Sex: Female : 1970 Arrival Date: 01/22/2021 Time: 10:18 Bed 7 Private MD: Diagnosis: Pain in right shoulder;Bronchitis, not specified as acute or chronic;Tobacco abuse counseling;Tobacco use;Gastro-esophageal reflux disease Presentation: 01/22 10:35 Chief complaint: Patient states: right shoulder pain that started 1.5 weeks ago, also em reports chest tightness with nausea and pain with breathing, denies fever. Coronavirus screen: Client denies travel out of the [place] in the last 14 days. Ebola Screen: Patient negative for fever greater than or equal to 101.5 degrees Fahrenheit, and additional compatible Ebola Virus Disease symptoms Patient denies exposure to infectious person. Patient denies travel to an Ebola-affected area in the 21 days before illness onset. No symptoms or risks identified at this time. Initial Sepsis Screen: Does the patient meet any 2 criteria? HR > 90 bpm. No. Patient's initial sepsis screen is negative. Does the patient have a suspected source of infection? No. Patient's initial sepsis screen is negative. Risk Assessment: Do you want to hurt yourself or someone else? Patient reports no desire to harm self or others. Onset of symptoms was January 22, 2021. 10:35 Method Of Arrival: Ambulatory em 10:35 Acuity: TIO 3 em Historical: - Allergies: 10:38 No Known Allergies; em - PMHx: 10:38 CVA; GERD; em - PSHx: 10:38 Gastric Sleeve; Neck Fusion; Knee Repleacement - Bilateral; em - Immunization history:: Adult Immunizations up to date. - Social history:: Smoking status: Patient reports the use of cigarette tobacco products, smokes one pack cigarettes per day. Screenin:38 Abuse screen: Denies threats or abuse. Nutritional screening: No deficits noted. em Tuberculosis screening: No symptoms or risk factors identified. Fall Risk None identified. Assessment: 10:35 General: Appears in no apparent distress. comfortable, Behavior is calm, cooperative, em appropriate for age, Denies fever. Pain: Complains of pain in anterior aspect of right shoulder Pain currently is 5 out of 10 on a pain scale. Pain began 1.5 weeks ago. Neuro: Level of Consciousness is awake, alert, obeys commands, Oriented to person, place, time, situation. Cardiovascular: Reports diaphoresis, nausea, since chest tightness Capillary refill < 3 seconds Patient's skin is warm and dry. Rhythm is sinus rhythm. Respiratory: Reports shortness of breath when laying down Airway is patent Respiratory effort is even, unlabored, Respiratory pattern is regular, symmetrical, Breath sounds are clear bilaterally. GI: Abdomen is round non-distended, Patient currently denies nausea. Derm: Skin is intact, is thin, Skin is pink, warm \T\ dry. Musculoskeletal: Capillary refill < 3 seconds, Range of motion: intact in all extremities. 11:45 Reassessment: Patient appears in no apparent distress at this time. Patient and/or em family updated on plan of care and expected duration. Pain level reassessed. Patient is alert, oriented x 3, equal unlabored respirations, skin warm/dry/pink. 12:51 Reassessment: Patient appears in no apparent distress at this time. Patient and/or em family updated on plan of care and expected duration. Pain level reassessed. Patient is alert, oriented x 3, equal unlabored respirations, skin warm/dry/pink. Vital Signs: 10:35 BP 194 / 95; Pulse 102; Resp 20; Temp 98.5(O); Pulse Ox 97% on R/A; Weight 113.4 kg; em Height 5 ft. 2 in. (157.48 cm); Pain 5/10; 10:44 BP 144 / 91; em 11:45 BP 138 / 94; Pulse 69; Resp 16; Pulse Ox 98% on R/A; em 12:51 BP 151 / 105; Pulse 89; Resp 18; Pulse Ox 99% on R/A; em 10:35 Body Mass Index 45.73 (113.40 kg, 157.48 cm) em ED Course: 10:18 Patient arrived in ED. ds1 10:26 Shamar Mendes MD is Attending Physician. blossom 10:27 Martin Beckford, RN is Primary Nurse. em 10:37 Triage completed. em 10:38 Arm band placed on. em 10:38 Patient has correct armband on for positive identification. Placed in gown. Bed in low em position. Call light in reach. Side rails up X2. 11:09 Basic Metabolic Panel Sent. sv 11:09 LFT's Sent. sv 11:09 CBC with Diff Sent. sv 11:33 XRAY Chest (1 view) In Process Unspecified. EDMS 11:34 CT Chest For PE Angio In Process Unspecified. EDMS 13:15 Elias Perez MD is Referral Physician. blossom 13:46 No provider procedures requiring assistance completed. IV discontinued, intact, em bleeding controlled, No redness/swelling at site. Pressure dressing applied. Administered Medications: 10:44 Drug: Aspirin Chewable Tablet 162 mg Route: PO; em 10:54 Follow up: Response: No adverse reaction em 11:02 Drug: NS 0.9% 1000 ml Route: IV; Rate: 125 ml/hr; Site: right antecubital; em 13:25 Follow up: IV Status: Order to discontinue infusion; IV Intake: 200ml em 13:17 Drug: Decadron - Dexamethasone 10 mg Route: IVP; Site: right antecubital; em 13:25 Follow up: Response: No adverse reaction em 13:18 Drug: Zithromax (azithromycin) 500 mg Route: PO; em 13:25 Follow up: Response: No adverse reaction em 13:20 Drug: Xopenex (levalbuterol) 1.25 mg Route: Inhalation; em 13:47 Follow up: Response: No adverse reaction em 13:20 Drug: AtroVENT (ipratropium) Aerosol 0.5 mg Route: Inhalation; em 13:47 Follow up: Response: No adverse reaction em 13:21 Drug: Pepcid (famotidine) 20 mg Route: IVP; Site: right antecubital; em 13:47 Follow up: Response: No adverse reaction em Intake: 13:25 IV: 200ml; Total: 200ml. em Outcome: 13:16 Discharge ordered by MD. blossom 13:46 Discharged to home ambulatory. em 13:46 Condition: stable 13:46 Discharge instructions given to patient, Instructed on discharge instructions, follow up and referral plans. medication usage, Demonstrated understanding of instructions, follow-up care, medications, Prescriptions given X 4. 13:48 Patient left the ED. em Signatures: Dispatcher [employer] EDMS Rodo, Michell, RN RN sv Vaugnh, Shamar, MD MD blossom Beckford, Martin, RN RN em Becerra, Ashley ds1
[2021-01-22] MEDS ORDERED: AZITHROMYCIN 250 MG TAB ONE (13:32)
[2021-01-22] MEDS ORDERED: IPRATROPIUM BROM 0.5MG/2.5ML ONE (13:32)
[2021-01-22] MEDS ORDERED: FAMOTIDINE 20 MG/2 ML VIAL IV ONE (13:32)
[2021-01-22] MEDS ORDERED: dexAMETHasone 10 MG/ML VIAL ONE (13:32)
[2021-01-22] MEDS ORDERED: LEVALBUTEROL 1.25 MG/3 ML NEB ONE (13:32)
[2021-01-22 13:53] VITALS: TEMP 98.5
[2021-01-22 13:57] VITALS: BP 151/105; O2SAT 99
== END 2021-01-22 13:48 | disposition home or self-care (01) ==
LOC: ER 10:14
DX: J40 Bronchitis, not specified as acute or chronic (principal); K21.9 Gastro-esophageal reflux disease without esophagitis; Z20.822 Contact with and (suspected) exposure to COVID-19; Z72.0 Tobacco use; Z71.6 Tobacco abuse counseling
CPT/HCPCS: 96361; 87040 ×2; 85025; 80048; 36415; 83735; 85610; 82565; 80076; 84484; 83880; 0240U; 71275; 71045; 96375; 96374; 99285; Q9967; J1100; J7030; 93005

== ENCOUNTER 2021-04-15 10:21 | Emergency (ER) | payer OTHER ==
--- OUTSIDE RECORDS SUMMARY | 2021-04-15 10:24 | XMS REPORT | Continuity of Care Document ---
:1970 Author Organization [facility] t Address [address] [place] [address] Care Team Providers Name Role Phone Aaron [...] 06/04/2019 OPIAnselmo Friendswoo d Acid Problem Resolve 2021-01-26 Catrachito darlin reflux d 23:22:40 l (finding) Acid [place] reflux (finding) Resolved Problem 01/26/2021 Medical Group,[facility] her Neuro, OPIAnselmo Friendswkadi d, ANDREINA Em Benign Problem Resolve 2021-01-26 Catrachito darlin hypertensi d 23:22:40 l on Benign [place] (disorder) hypertensi on (disorder) Resolved Problem 01/26/2021 [facility] [place] [place] [facility] OPID Friendswoo d, OPID [place] Diabetes Problem Resolve 2021-01-26 Me moria mellitus d 23:22:40 l (disorder) Diabetes He rmann mellitus (disorder) Resolved Problem 01/26/2021 [facility], OPID Friendswoo d, OPID [place] Hyperlipid Problem Resolve 2021-01-26 Memoria emia d 23:22:40 l (disorder) [place] Hyperlipid emia (disorder) Resolved Problem 01/26/2021 [facility], OPID Friendswoo d, OPID [place] Gastroesop Problem Active 2021-01-26 M emoria hageal 23:22:40 l reflux [place] disease Gastroesop without hageal esophagiti reflux s disease (disorder) without esophagiti s (disorder) Active Problem 01/26/2021 [facility], OPID Friendswoo d, OPID [place] Herpes Problem Active 2021-01-26 Memor ia simplex 23:22:40 l with Herpes [place] complicati simplex on with (disorder) complicati on (disorder) Active Problem 01/26/2021 [facility], OPID [place]woo d, OPID [place] Impaired Problem Active 2021-01-26 Mem oria fasting 23:22:40 l glycaemia Impaired Her lacy (disorder) fasting glycaemia (disorder) Active Problem 01/26/2021 [facility], OPID Friendswoo d, OPID [place] Mixed Problem Active 2021-01-26 Memor ia hyperlipid 23:22:40 l emia Mixed [place] (disorder) hyperlipid emia (disorder) Active Problem 01/26/2021 [facility], OPID [place] d, OPID [place] Morbid Problem Active 2021-01-26 Memor ia obesity 23:22:40 l (disorder) Morbid Herm sienna obesity (disorder) Active Problem 01/26/2021 [facility], OPID [place] d, OPID [place] Pes Problem Active 2021-01-26 Memor ia anserinus 23:22:40 l bursitis Pes [place] (disorder) anserinus bursitis (disorder) Active Problem 01/26/2021 [facility] Group,[facility] OPID [place] d, OPID [place] Exercise-i Problem Active 2021-01-26 M emoria nduced 23:22:40 l asthma [place] (disorder) Exercise-i nduced asthma (disorder) Active Problem 01/26/2021 [facility], OPID [place]wo[place] d, OPID [place] Heavy Problem Active 2021-01-26 Memor ia cigarette 23:22:40 l smoker Heavy [place] (finding) cigarette smoker (finding) Active Problem 01/26/2021 [facility], OPID [place] d, OPID [place] History of Problem Active 2021-01-26 M emoria - CVA 23:22:40 l (context-d History Her lacy ependent of - CVA category) (context-d ependent category) [facility] [place] d, OPID [place] Patient Problem Active 2021-01-26 Catrachito darlin non-compli 23:22:40 l ance - Patient [place] general non-compli (context-d ance - ependent general category) (context-d ependent category) Active Problem 01/26/2021 [facility], OPID [place] d, OPID [place] Migraine Problem Active 2021-01-26 Mem oria with aura 23:22:40 l (disorder) Migraine He rmann with aura (disorder) Active Problem 01/26/2021 [facility] Group,[facility] Sinus Problem Active 2021-01-26 Memor ia headache 23:22:40 l (finding) Sinus [place] headache (finding) Active Problem 01/26/2021 [facility] Allergies, Adverse Reactions, Alerts Allergy Allergy [...] Quantity Comments Source Social History 2015-12-24 2015-12-24 [facility] Samuel werner 18:11:14 18:11:14 Medications Ordered Filled Start Stop Current Ordering Indication Dosage Frequency Signature Comments Components Source Medication Medication Date Date Medication? Clinician (SIG) Name Name pantoprazol Yes 40 mg = 1 M emoria e 40 MG 4-23 tab, PO, l Enteric 02:09: Daily, # [place] n Coated 00 90 tab, 0 Tablet Refill(s), [Protonix] Pharmacy: [id number], 154.94, cm, 12/17/20 14:42:00 CDT, Height, [...] stop., # 30 tab, 0 Refill(s), Pharmacy: [facility] #[id number], 154.94, cm, 12/17/20 14:42:00 CDT, Height, 115.545,.. . valacyclovi Yes 2 gm = 2 Me moria r 1000 MG 2-10 tab, PO, l Oral Tablet 19:59: Q12H, As He rmann [Valtrex] 00 soon as cold sore pops up, # 60 tab, 0 Refill(s), Pharmacy: [facility] #[id number], 154.94, cm, 10/22/20 13:39:00 DEBLOCKER, Height, 113.818, kg, 10/22/20 13:39:00 DEBLOCKER, Weight pantoprazol 2019-09 Yes = 1 tab, Me moria e 40 mg 1-17 PO, Daily, l oral 20:53: # 90 tab, [place] enteric 00 1 coated Refill(s), tablet Pharmacy: [id number], 157.48, cm, 07/10/20 10:07:00 CDT, Height, 110, kg, 07/10/20 10:07:00 CDT, Weight 24 HR 2019-09 Yes 75 mg = 2 Memoria venlafaxine 0-29 cap, PO, l 37.5 MG 15:49: Daily, # [place] Em 00 60 cap, 3 Release Refill(s), Capsule Pharmacy: [Effexor] [id number], 157.48, cm, 07/10/20 10:07:00 CDT, [...] [place] 00 90 tab, 1 Refill(s), Pharmacy: [id number], 154.94, cm, 06/03/20 10:17:00 CDT, Height, 113.182, kg, 06/03/20 10:17:00 CDT, Weight amitriptyli Yes 25 mg = 1 M emoria ne 25 mg 9-30 tab, PO, l oral tablet 18:20: Bedtime, # [place] 00 30 tab, 1 Refill(s), Pharmacy: [facility] #[id number], 154.94, cm, 06/03/20 10:17:00 CDT, Height, 113.182, kg, 06/03/20 10:17:00 CDT, Weight topiramate Yes See Memoria 50 MG Oral 9-23 Instructio l Tablet 20:33: ns, 1/2 [place] [Topamax] 00 tab PO QAM and 1 full tab PO QHS, # 135 tab, 1 Refill(s), Pharmacy: [id number], 154.94, cm, 06/03/20 10:17:00 CDT, Height, 113.182, kg, 06/03/20 10:17:00 CDT, Weight topiramate 2020-0 No See Memoria 50 MG Oral 9-22 Instructio l Tablet 15:43: ns, 1/2 [place] [Topamax] 00 tab PO QAM and 1 full tab PO QHS, # 45 tab, 2 Refill(s), Pharmacy: [facility] #[id number], 154.94, cm, 06/03/20 10:17:00 CDT, Height, 113.182, kg, 06/03/20 10:17:00 CDT, Weight Sumatriptan 2019-0 Yes 50 mg = 1 M emoria 50 MG Oral 9-22 tab, PO, l Tablet 15:43: ONCE, PRN [place] n [Imitrex] 00 Headache, may repeat one time after 2 hours, # 9 tab, 3 Refill(s), Pharmacy: [id number], 154.94, cm, 06/03/20 10:17:00 CDT, Height, 113.182, kg, 06/03/20 10:17:00 CDT, Weight Ibuprofen 2019-0 Yes 400 mg = 2 Me moria 200 MG Oral 9-22 tab, PO, l Tablet 15:20: Q4H, PRN [place] [Advil] 00 Pain, # 120 tab, 0 Refill(s) pantoprazol 2019-0 Yes = 1 tab, Me moria e 40 mg 8-07 PO, Daily, l oral 14:56: # 90 tab, Rusatm enteric 00 0 coated Refill(s), tablet Pharmacy: [facility] [id number], 154.94, cm, 08/07/19 14:05:00 DEBLOCKER, Height, 114.818, kg, 08/07/19 14:05:00 DEBLOCKER, Weight {21 2020-0 Yes See Memoria (Methylpred 6-12 Instructio l nisolone 4 13:33: ns, PO, Herm sienna MG Oral 00 Take by Tablet mouth as [Medrol]) } directed Pack on label., [Medrol X 6 day, # Dosepak] 21 tab, 0 Refill(s), Pharmacy: [facility] #[id number], 154.94, cm, 08/07/19 14:05:00 DEBLOCKER, Height, 114.818, kg, 11/26/19 14:05:00 DEBLOCKER, Weight Cyclobenzap 2020-0 Yes 10 mg = 1 M emoria rine 6-12 tab, PO, l hydrochlori 13:33: Bedtime, He rmann de 10 MG 00 PRN for Oral Tablet spasm, # [Flexeril] 15 tab, 0 Refill(s), Pharmacy: [id number], 154.94, cm, 08/07/19 14:05:00 DEBLOCKER, Height, 114.818, kg, 08/07/19 14:05:00 DEBLOCKER, Weight Hydrochloro 2020-0 Yes 0 Memori a thiazide 6-11 Refill(s) l 12.5 MG 21:50: [place] Oral 00 Capsule non-formula 2020-0 Yes Refill(s) M emoria ry 6-11 0 l 21:50: [place] 00 Phentermine 2020-0 Yes 0 Memori a Hydrochlori 6-11 Refill(s) l de 37.5 MG 21:50: [place] Oral Tablet 00 Folic Acid 2020-0 Yes 0 Memoria 1 MG Oral 6-11 Refill(s) l Tablet 21:49: [place] 00 pantoprazol 2020-0 Yes = 1 tab, Me moria e 40 mg 5-04 PO, Daily, l oral 13:34: # 90 tab, [place] enteric 48 Pharmacy: [id number] Hydrochloro 0 Yes = 1 tab, Me moria thiazide 25 1-27 PO, Daily, l MG Oral 15:06: PRN [place] Tablet 37 NEEDED FOR SWELLING, # 90 tab, Pharmacy: [id number] Clarithromy 2018-09 Yes 500 mg = 1 Memoria roberto 500 MG 1-26 tab, PO, l Oral Tablet 20:13: Q12H, X 10 [place] [Biaxin] 00 day, # 20 tab, 0 Refill(s), Pharmacy: [facility] {2018-09 Yes See Memoria (Methylpred 1-26 Instructio l nisolone 4 20:13: ns, PO, Herm sienna MG Oral 00 Take by Tablet mouth as [Medrol]) } directed Pack on label., [Medrol X 6 day, # Dosepak] 1 Pack, 0 Refill(s), Pharmacy: [id number] Hydrochloro 2018-09 Yes See Memori a thiazide 25 0-21 Instructio l MG Oral 18:04: ns, 1 tab Ariana nn Tablet 00 PO daily x 3 days PRN swelling, # 30 tab, 2 Refill(s), Pharmacy: [id number] olopatadine Yes 1 drp, Catrachito darlin 1 MG/ML 9-23 BOTH EYES, l Ophthalmic 20:44: BID, X 10 He rmann Solution 00 day, # 5 [Patanol] ml, 0 Refill(s), Pharmacy: [facility] #[id number] Hydrochloro Yes See Memori a thiazide 25 9-23 Instructio l MG Oral 20:44: ns, 1 tab Ariana nn Tablet 00 PO daily x 3 days PRN swelling, # 30 tab, 2 Refill(s), Pharmacy: [id number] tizanidine Yes 4 mg = 1 Mem oria 4 mg oral 6-24 tab, PO, l tablet 19:44: Bedtime, [place] 00 PRN muscle spasm, # 30 tab, 0 Refill(s), Pharmacy: [facility] #[id number] {21 Yes See Memoria (Methylpred 6-24 Instructio l nisolone 4 19:44: ns, PO, as H ermann MG Oral 00 directed Tablet on package [Medrol]) } labeling. Pack Take with [Medrol food, # 1 Dosepak] Pack, 0 Refill(s), Pharmacy: [id number] valacyclovi 2018- Yes 500 mg = 1 Memoria r 500 MG 5-30 tab, PO, l Oral Tablet 18:52: Daily, # He rmann [Valtrex] 00 90 tab, 3 Refill(s), Pharmacy: [facility] #[id number] pantoprazol 2018- Yes = 1 tab, Me moria e 40 mg 5-30 PO, Daily, l oral 18:46: # 90 tab, [place] enteric 19 3 coated Refill(s), tablet Pharmacy: [facility] #[id number] albuterol 2018- Yes 2 puff, Memor ia 90 mcg/inh 5-30 INHALATION l inhalation 18:46: , Q4H, PRN H ermann aerosol 18 for wheezing, # 9 gm, 2 Refill(s), [facility]: [id number] pantoprazol Yes = 1 tab, Me moria e 40 mg 3-27 PO, Daily, l oral 23:14: # 30 tab, [place] enteric 55 0 coated Refill(s), [id number] pantoprazol 2017-09 No 40 mg = 1 M emoria e 40 MG 0-04 tab, PO, l Enteric 19:37: Daily, # [place] n Coated 00 90 tab, 1 Tablet Refill(s), [Protonix] [id number] Ciprofloxac Yes 4 drp, Catrachito darlin in 3 MG/ML 6- LEFT EAR, l / 16:38: BID, X 7 [place] Dexamethaso 00 day, # 1 ne 1 MG/ML btl, 0 Otic Refill(s), Suspension [id number] Aspirin 81 2017- Yes 81 mg = 1 Me moria MG Enteric 6-14 tab, PO, l Coated 13:11: Daily, [place] Tablet 00 OTC, # 999,999 tab, 0 Refill(s), other albuterol Yes 2 puff, Memor ia 90 mcg/inh 6-14 INHALATION l inhalation 13:09: , Q4H, PRN H ermann aerosol 00 for wheezing, # 9 gm, 2 Refill(s), [id number] pantoprazol Yes 40 mg = 1 M emoria e 40 MG 5-04 tab, PO, l Enteric 18:43: Daily, # [place] n Coated 51 30 tab, 0 Tablet Refill(s), [Protonix] Pharmacy: [facility] #[id number] Fluticasone Yes See Memori a propionate 1-02 Instructio l 0.05 15:21: ns, # 16 [place] MG/ACTUAT 09 mL, Metered Refill(s) Dose Nasal 1, INHALE [place] 2 SPRAYS IN EACH NOSTRIL ONCE DAILY NEEDED FOR CONGESTION ., Pharmacy: [facility] #[id number] Fluticasone 2016- Yes 2 spray, Me moria propionate 1-13 NASAL, l 0.05 22:30: Daily, PRN [place] MG/ACTUAT 00 Nasal Metered Congestion Dose Nasal , in each [place] nostril, # [Flonase] 16 gm, 1 Refill(s), Pharmacy: [id number] clarithromy 2017- Yes 500 mg = 1 Memoria roberto 500 mg 1-13 tab, PO, l oral tablet 22:30: Q12H, X 10 [place] 00 day, # 20 tab, 0 Refill(s), Pharmacy: [id number] Bromphenira 2016-09 Yes 5 mL, PO, M emoria mine 1-13 Q6H, PRN l Maleate 0.4 22:30: for cough H ermann MG/ML / 00 and Dextrometho congestion rphan , X 10 Hydrobromid day, # 120 e 2 MG/ML / mL, 0 Pseudoephed Refill(s), rine Pharmacy: Hydrochlori [facility] 6 MG/ML cy #[id number] Oral Solution Vital Signs Vital Name Observation Time Observation Value Comments Source Systolic (mm Hg) 2020-12-17 19:42:00 Catrachito rial [place] Diastolic (mm Hg) 2020-12-17 19:42:00 Mem orial [place] Heart Rate 2020-12-17 19:42:00 [facility] [place] Temperature Oral (F) 2020-12-17 19:42:00 98.7 F [facility] [place] Height 2020-12-17 19:42:00 154.94 cm [facility] [place] Weight 2020-12-17 19:42:00 [facility] [place] BMI Calculated 2020-12-17 19:42:00 Memori al [place] Systolic (mm Hg) 2020-10-22 19:39:00 Catrachito rial [place] Diastolic (mm Hg) 2020-10-22 19:39:00 Mem orial [place] Heart Rate 2020-10-22 19:39:00 [facility] [place] Temperature Oral (F) 2020-10-22 19:39:00 98.6 F [facility] [place] Height 2020-10-22 19:39:00 154.94 cm [facility] [place] Weight 2020-10-22 19:39:00 [facility] [place] BMI Calculated 2020-10-22 19:39:00 Memori al [place] Systolic (mm Hg) 2020-07-10 15:07:00 Catrachito rial [place] Diastolic (mm Hg) 2020-07-10 15:07:00 Mem orial [place] Heart Rate 2020-07-10 15:07:00 [facility] [place] Respitory Rate 2020-07-10 15:07:00 Memori al [place] Height 2020-07-10 15:07:00 157.48 cm [facility] [place] Weight 2020-07-10 15:07:00 [facility] [place] BMI Calculated 2020-07-10 15:07:00 Memori al [place] Systolic (mm Hg) 2020-06-03 15:17:00 Catrachito rial [place] Diastolic (mm Hg) 2020-06-03 15:17:00 Mem orial [place] Heart Rate 2020-06-03 15:17:00 [facility] [place] Temperature Oral (F) 2020-06-03 15:17:00 98.6 F [facility] [place] Height 2020-06-03 15:17:00 154.94 cm [facility] [place] Weight 2020-06-03 15:17:00 [facility] [place] BMI Calculated 2020-06-03 15:17:00 Memori al [place] Systolic (mm Hg) 2019-08-07 20:05:00 Catrachito rial [place] Diastolic (mm Hg) 2019-08-07 20:05:00 Mem orial [place] Heart Rate 2019-08-07 20:05:00 [facility] [place] Temperature Oral (F) 2019-08-07 20:05:00 97.9 F [facility] [place] Height 2019-08-07 20:05:00 154.94 cm [facility] [place] Weight 2019-08-07 20:05:00 [facility] [place] BMI Calculated 2019-08-07 20:05:00 Memori al [place] Systolic (mm Hg) 2019-06-04 20:25:00 Catrachito rial [place] Diastolic (mm Hg) 2019-06-04 20:25:00 Mem orial [place] Heart Rate 2019-06-04 20:25:00 [facility] [place] Temperature Oral (F) 2019-06-04 20:25:00 98.1 F [facility] [place] Height 2019-06-04 20:25:00 154.94 cm [facility] [place] Weight 2019-06-04 20:25:00 [facility] [place] BMI Calculated 2019-06-04 20:25:00 Memori al [place] Height 2019-03-05 19:23:00 154.94 cm [facility] [place] Weight 2019-03-05 19:23:00 [facility] [place] BMI Calculated 2019-03-05 19:23:00 Memori al [place] Systolic (mm Hg) 2019-03-05 19:23:00 Catrachito rial [place] Diastolic (mm Hg) 2019-03-05 19:23:00 Mem orial [place] Respitory Rate 2019-03-05 19:23:00 Memori al [place] Temperature Oral (F) 2019-03-05 19:23:00 98.3 F [facility] [place] Heart Rate 2019-03-05 19:23:00 [facility] [place] BMI Calculated 2019-02-08 18:32:00 Memori al [place] Weight 2019-02-08 18:32:00 [facility] [place] Heart Rate 2019-02-08 18:32:00 [facility] [place] Systolic (mm Hg) 2019-02-08 18:32:00 Catrachito rial [place] Diastolic (mm Hg) 2019-02-08 18:32:00 Mem orial [place] Respitory Rate 2019-02-08 18:32:00 Memori al [place] Temperature Oral (F) 2019-02-08 18:32:00 98.2 F [facility] [place] Height 2019-02-08 18:32:00 154.94 cm [facility] [place] Height 2018-03-06 16:25:00 154.94 cm [facility] [place] Weight 2018-03-06 16:25:00 [facility] [place] BMI Calculated 2018-03-06 16:25:00 Memori al [place] Systolic (mm Hg) 2018-03-06 16:25:00 Catrachito rial [place] Diastolic (mm Hg) 2018-03-06 16:25:00 Mem orial [place] Temperature Oral (F) 2018-03-06 16:25:00 98.2 F [facility] [place] Heart Rate 2018-03-06 16:25:00 [facility] [place] Weight 2018-02-23 12:40:00 [facility] [place] BMI Calculated 2018-02-23 12:40:00 Memori al [place] Height 2018-02-23 12:40:00 154.94 cm [facility] [place] Heart Rate 2018-02-23 12:40:00 [facility] [place] Temperature Oral (F) 2018-02-23 12:40:00 98.2 F [facility] [place] Systolic (mm Hg) 2018-02-23 12:40:00 Catrachito rial [place] Diastolic (mm Hg) 2018-02-23 12:40:00 Mem orial [place] Systolic (mm Hg) 2017-11-21 20:45:00 Catrachito rial [place] Diastolic (mm Hg) 2017-11-21 20:45:00 Mem orial [place] Respitory Rate 2017-11-21 20:45:00 Memori al [place] Heart Rate 2017-11-21 20:45:00 [facility] [place] BMI Calculated 2017-11-21 20:45:00 Memori al [place] Weight 2017-11-21 20:45:00 [facility] [place] Temperature Oral (F) 2017-11-21 20:45:00 98.0 F [facility] [place] Height 2017-11-21 20:45:00 157.48 cm [facility] [place] BMI Calculated 2017-07-25 22:18:00 Memori al [place] Height 2017-07-25 22:18:00 154.94 cm [facility] [place] Systolic (mm Hg) 2017-07-25 22:18:00 Catrachito rial [place] Diastolic (mm Hg) 2017-07-25 22:18:00 [facility] orial [place] Temperature Oral (F) 2017-07-25 22:18:00 98 F [facility] [place] Weight 2017-07-25 22:18:00 [facility] [place] Heart Rate 2017-07-25 22:18:00 [facility] Procedures Procedure Date / Time Performed Performing Clinician Della luna Knee replacement 2017-11-10 00:00:00 [facility] jan Repair of meniscus 2008-09-12 06:00:00 [facility] [place] Fusion of joint of 2007-09-12 00:00:00 [facility] [place] cervical spine with internal fixation by posterior approach Bariatric operative [facility] procedure Encounters Start End Encounter Admission Attending Care Care Encounter Source Date/Time Date/Time Type Type Clinicians Facility Department ID 2021-01-23 2021-01-24 Outpatient [facility] [id number] 14:01:15 23:59:59 25 2021-01-02 2021-01-03 Outpatient [facility] [id number] 07:54:42 23:59:59 24 2020-12-30 2020-12-31 Outpatient [facility] [id number] 11:52:37 23:59:59 23 2020-12-17 2020-12-17 Outpatient Jackie [facility] [id number] 14:30:00 23:59:59 Danny Aaron 17 2020-10-22 2020-10-22 Outpatient Jackie [facility] [id number] 13:45:00 23:59:59 Danny Aaron 16 2020-08-21 2020-08-21 Outpatient Cristóbal, MHMISCHER MHMISCHER [id number] 09:30:00 09:30:00 Jacky Jasmina Trinh 2020-07-28 2020-07-29 Outpatient [facility] [id number] 07:57:18 23:59:59 22 2020-07-28 2020-07-29 Outpatient [facility] [id number] 07:56:57 23:59:59 21 2020-07-10 2020-07-10 Outpatient Cristóbal, MHMISCHER MHMISCHER [id number] 10:00:00 23:59:59 Jacky Petar Trinh 2020-07-07 2020-07-08 Outpatient [facility] [id number] 10:35:25 23:59:59 20 2020-06-10 2020-06-11 Outpatient [facility] [id number] 14:07:41 14:07:41 29 2020-06-09 2020-06-10 Outpatient [facility] [id number] 11:45:06 23:59:59 19 2020-06-07 2020-06-07 Outpatient Jackie, MHOIP MHOIP [id number] 06:38:00 23:59:00 Danny Aaron 2020-06-04 2020-06-05 Outpatient [facility] [id number] 07:33:26 23:59:59 18 2020-06-03 2020-06-03 Outpatient Jackie, [facility] [id number] 10:15:00 23:59:59 Danny Aaron 13 2020-04-18 2020-04-19 Outpatient [facility] [id number] 07:45:38 23:59:59 17 2020-02-22 2020-02-23 Outpatient [facility] [id number] 08:52:50 08:52:50 25 2020-02-22 2020-02-22 Outpatient Jennifer [facility] [id number] 08:15:00 23:59:59 Osman Cook 2020-02-21 2020-02-22 Outpatient [facility] [id number] 16:48:44 16:48:44 24 2020-01-14 2020-01-15 Outpatient [facility] [id number] 08:04:38 23:59:59 16 2019-10-08 2019-10-09 Outpatient [facility] [id number] 07:48:39 23:59:59 15 2019-08-20 2019-08-21 Outpatient [facility] [id number] 14:36:04 23:59:59 14 2019-08-08 2019-08-09 Outpatient [facility] [id number] 08:32:23 08:32:23 20 2019-08-07 2019-08-07 Outpatient Jackie, [facility] [id number] 13:45:00 23:59:59 Danny Aaron 10 2019-08-07 2019-08-07 Outpatient Jackie [id number] 15:00:00 23:59:00 Danny Aaron [id number] 2019-07-02 2019-07-03 Outpatient [facility] [id number] 08:33:02 23:59:59 13 2019-06-06 2019-06-07 Outpatient [facility] [id number] 18:17:25 18:17:25 18 2019-06-04 2019-06-04 Outpatient Jackie [facility] [id number] 15:30:00 23:59:59 Danny Aaron 2019-06-04 2019-06-04 Outpatient Jackie [id number] 16:18:00 23:59:00 Danny Aaron [id number] 5.24 2019-04-18 2019-04-19 Outpatient [facility] [id number] 14:57:56 14:57:56 17 2019-03-28 2019-03-29 Outpatient [facility] [id number] 08:17:54 23:59:59 12 2019-03-05 2019-03-05 Outpatient Nilo, [facility] [id number] 14:30:00 23:59:59 Fina 08 2019-02-08 2019-02-08 Outpatient Nilo, [facility] [id number] 13:30:00 23:59:59 Fina 07 2019-02-06 2019-02-07 Outpatient [facility] [id number] 07:58:27 23:59:59 11 2018-12-06 2018-12-07 Outpatient [facility] [id number] 08:15:00 23:59:59 10 2018-06-15 2018-06-16 Outpatient [facility] [id number] 13:03:00 23:59:59 09 2018-03-06 2018-03-06 Outpatient Jackie, [facility] [id number] 11:30:00 23:59:59 Danny Coelhool 06 2018-02-23 2018-02-23 Outpatient Jackie, [facility] [id number] 08:00:00 23:59:59 Danny Aaron 05 2018-02-13 2018-02-14 Outpatient [facility] [id number] 09:10:00 23:59:59 08 2018-01-13 2018-01-14 Outpatient [facility] [id number] 09:36:00 23:59:59 07 2017-11-25 2017-11-26 Outpatient [facility] [id number] 16:44:00 23:59:59 06 2017-11-24 2017-11-25 Outpatient [facility] [id number] 14:18:00 23:59:59 05 2017-11-23 2017-11-24 Outpatient [facility] [id number] 17:02:00 23:59:59 04 2017-11-21 2017-11-21 Outpatient Jennifer, [facility] [id number] 15:30:00 23:59:59 Osman Cook 2017-11-18 2017-11-19 Outpatient [facility] [id number] 14:05:00 23:59:59 03 2017-10-11 2017-10-12 Outpatient [facility] [id number] 11:27:00 23:59:59 02 2017-09-13 2017-09-14 Outpatient [facility] [id number] 07:50:00 23:59:59 2017-07-25 2017-07-25 Outpatient Jackie [facility] [id number] 16:00:00 23:59:59 Danny Aaron 03 Results Test Description Test Time Test Comments Results Result Comments Source ANEMIA STUDY 2020-07-11 [address] lacy 19:29:00 HEMATOLOGY 2020-07-[address] nn 19:29:00 BASIC METABOLIC PANEL 2018-10-25 07:50:00 Test [...] measure: (test code = GFR) mL/min/1.7 3 [id number] Range:Healthy A dults >90 mL/min/1.73 m2 For Chronic Kidney Disease: Stage II Mi ld Decrease in GFR 60-9 0 Stage III Moderate Decrease in GFR 30-59 Stage IV Severe Decrease in GFR 15-29 Stage V Kidney Failure <15 CREATININE (test code = CREAT) 0.62 mg/dL 0.55-1.30 N CALCIUM (test code = CA) 8.7 mg/dL 8.2-10.1 N HGB [id number] 05:56:00 Test Item Value Reference Range Interpretation Comments HEMOGLOBIN (test code = HGB) 10.6 g/dL 12-16 L HEMATOCRIT (test code = HCT) 33.8 % 37-47 L - XR KNEE 1 OR 2 V [id number] 11:06:00 Patient Name: KENTRELL PEÑA Unit No: [id number] EXAMS: CPT CODE: [id number] XR KNEE 1 OR 2 V LT 06925 LEFT KNEE 2 VIEWS PORTABLE COMMENT: 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 at 1106 Reported and signed by: Dawit Vincent MD CC: Hai Gaines MD Technologist: SHUKRI VALLE (RT.R) Transcribed D/ (1106) [facility] NAME: KENTRELL PEÑA [address] [facility] PHYS: Hai An MD : 1970 AGE: 47 SEX: F [place], [place] [address] LOC: Y.311 A PHONE #: [phone] EXAM DATE: 10/24/2018 STATUS: [place] [facility] [place] FAX #: [phone] #: D/C DT PAGE 1 Signed Report Patient Name: KENTRELL PEÑA Unit No: [id number] EXAMS: CPT CODE: [id number] XR KNEE 1 OR 2 V LT [id number] <Continued> Orig Print D/T: S: 10/24/2018 (1110) [facility] NAME: KENTRELL PEÑA [address] [facility] PHYS: Hai An MD : 1970 AGE: 47 SEX: F [place] [address] LOC: Y.311 A PHONE #: [phone] EXAM DATE: 10/24/2018 STATUS: [facility] [place] FA[place] #: [phone] RAD #: D/C DT PAGE 2 Signed ReportBASI METABOLIC [id number] 17:12:00 Test Item Value Reference Range Interpretation [...] RATE (test code = GFR) mL/mi n/1.73 [id number] Range:Healthy Adults >90 mL/min/1.73 m2 For Chronic Kidney Disease: St age II Mild Decrease in GFR 60-90 St age III Moderate Decrease in GFR 30-59 Stage IV Severe Decre ase in GFR 15- 29 Stage V Kidney Failure <15 CREATININE (test code 0.52 mg/dL 0.55-1.30 L = CREAT) CALCIUM (test code = 9.8 mg/dL 8.2-10.1 N CA) CBC W/AUTO [id number] 16:46:00 Test Item Value Reference Range Interpretation [...]
--- NOTE | 2021-04-15 11:27 | RAD REPORT ---
EXAM DESCRIPTION: CT - Head Brain Wo Cont - 04/15/2021 11:16 am CLINICAL HISTORY: R/O CVA Headache, drowsiness COMPARISON: Head Brain Wo Cont dated 05/23/2020; Chest For Pe Angio dated 01/22/2021 TECHNIQUE: All CT scans are performed using dose optimization technique as appropriate and may inclu de automated exposure control or mA/KV adjustment according to patient size. FINDINGS: No intracranial hemorrhage, hydrocephalus or extra-axial fluid collection.3 cm area of dim inished density in the left occipital lobe likely represents CVA. This is a new finding since 2019 pr ior study. The paranasal sinuses and mastoids are clear. The calvarium is intact. IMPRESSION: 3 cm area of diminished density left occipital region likely represents subacute CVA.
--- NOTE | 2021-04-15 14:21 | RAD REPORT ---
EXAM DESCRIPTION: RAD - Chest Single View - 04/15/2021 1:47 pm CLINICAL HISTORY: DYSPNEA COMPARISON: Chest Single View dated 01/22/2021 FINDINGS: No evidence of edema or pneumonia. The heart size is within normal limits.No acute osseous abnormality. No significant pleural effusions or pneumothorax. IMPRESSION: No acute cardiopulmonary disease.
[2021-04-15] MEDS ORDERED: ASPIRIN 81 MG CHEWABLE TABLET ONE (14:46)
[2021-04-15] MEDS ORDERED: CLOPIDOGREL 75 MG TABLET ONE (14:47)
--- NOTE | 2021-04-15 14:53 | RAD REPORT ---
EXAM DESCRIPTION: - CP - 04/15/2021 2:39 pm CLINICAL HISTORY: cva COMPARISON: No comparisons TECHNIQUE: Real-time sonographic evaluation of both carotid systems was performed. Doppler interroga tion was performed with waveform tracing bilaterally. FINDINGS: Normal high resistance waveforms are noted in both external carotid arteries. The common c arotid arteries and internal carotid arteries show normal low resistance waveforms. Minimal calcified plaque at the right carotid bulb. Peak systolic and end diastolic velocity values a nd the ICA/CCA ratios are in the non-hemodynamically significant range. Antegrade flow seen in both vertebral arteries. IMPRESSION: Minimal calcified plaque at the right carotid bulb. No evidence of a hemodynamically significant stenosis.
[2021-04-15 15:01] LABS: Absolute Lymphocytes (CBC) 2.6 K/uL (0.7-4.9); Basophils % 0.9 % (0-1.3); Hematocrit 33.6 % (36.0-45.0); Lymphocytes % 21.1 % (15.3-44.8); MPV 8.5 fL (7.6-11.3); RBC Red Blood Cell Count 5.08 M/uL (3.86-4.86)
[2021-04-15 15:10] LABS: Protime INR 1.07
[2021-04-15 15:33] LABS: ALT/SGPT 16 U/L (12-78); AST/SGOT 7 U/L (15-37); Albumin 3.3 g/dL (3.4-5.0); Alkaline Phosphatase 149 U/L (45-117); BUN Blood Urea Nitrogen 13 mg/dL (7-18); Bicarbonate 25 mmol/L (21-32); Bilirubin Direct 0.3 mg/dL (0-0.2); Bilirubin Total 0.3 mg/dL (0.2-1.0); Glucose Level 108 mg/dL (74-106); Magnesium 2.1 mg/dL (1.8-2.4); NT PRO-BNP 128 pg/mL (<125); Potassium 4.1 mmol/L (3.5-5.1); Protein, Total 7.7 g/dL (6.4-8.2); Sodium Level 138 mmol/L (136-145); Troponin (Emerg Dept Use Only) < 0.02 ng/mL (0.0-0.045)
[2021-04-15 15:48] LABS: Blood Morphology Comment NOTED (NOT SEEN); Hypochromasia 1+; Platelet Estimate ADEQ; White Blood Cell Scan OK (OK)
--- NOTE | 2021-04-15 16:25 | RAD REPORT ---
EXAM DESCRIPTION: CT - Head angio - 04/15/2021 4:19 pm CLINICAL HISTORY: cva COMPARISON: Head Brain Wo Cont dated 04/15/2021; Head Brain Wo Cont dated 05/23/2020 TECHNIQUE: CT angiography of the head was performed with MIPs. All CT scans are performed using dose optimization technique as appropriate and may include automated exposure control or mA/KV adjustment according to patient size. FINDINGS: No evidence of aneurysm is detected. No flow-limiting stenosis or vascular malformation id entified. Antegrade flow is seen in the vertebral arteries. Diminutive nondominant right vertebral artery. The visualized dural venous sinuses are patent. IMPRESSION: No significant flow abnormality is detected.
--- NOTE | 2021-04-15 17:50 | RAD REPORT ---
EXAM DESCRIPTION: MRI - Brain Wo Cont - 04/15/2021 5:27 pm CLINICAL HISTORY: cva COMPARISON: Head angio dated 04/15/2021; Head Brain Wo Cont dated 04/15/2021 FINDINGS: Diffusion restriction within the left occipital lobe involving the cortex as well as some subcortical white matter noted as well. There is associated gyral edema. There are several small sate llite foci of infarct in the left parietal and occipital lobe. There is a small punctate cortical inf arct in the left frontal lobe best seen on image 22, series 8. The flow voids are normal. No acute in tracranial hemorrhage is seen. No mass effect or midline shift. No hydrocephalus. IMPRESSION: Multiple acute infarcts predominantly centered within the left parietal and occipital lo bes that could represent a watershed distribution as well as the posterior circulation. The infarct s ize is small. .
--- NOTE | 2021-04-15 18:40 | ER ---
Nurse's Notes [facility] Name: Samara Hopson Age: 50 yrs Sex: Female : 1970 Arrival Date: 04/15/2021 Time: 10:29 Bed 17 Private MD: Diagnosis: Hemiplegic migraine, intractable, with status migrainosus;Cerebral infarction, unspecified Presentation: 04/15 11:02 Chief complaint: Patient states: Tingling to R 3rd-5th fingers that began 3 days ago ss with headache and memory loss. Coronavirus screen: Client denies travel out of the [place] in the last 14 days. Ebola Screen: Patient denies exposure to infectious person. Patient denies travel to an Ebola-affected area in the 21 days before illness onset. No acute neurological deficit is noted. Pre-hospital glucose is not applicable to this patient. Initial Sepsis Screen: Does the patient meet any 2 criteria? No. Patient's initial sepsis screen is negative. Does the patient have a suspected source of infection? No. Patient's initial sepsis screen is negative. Risk Assessment: Do you want to hurt yourself or someone else? Patient reports no desire to harm self or others. Onset of symptoms was April 12, 2021. 11:02 Method Of Arrival: Ambulatory ss 11:02 Acuity: TIO 3 ss Triage Assessment: 19:28 The onset of the patients symptoms was more than six hours ago. General: Appears in no kg apparent distress. Behavior is calm, cooperative, appropriate for age, quiet. 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: 19:29 LMP N/A - Post-menopause kg Stroke Activation: Symptom onset > 6 hours Physician: Stroke Attending; Name: ; Notified At: ; Arrived At: Physician: Chief Stroke Resident; Name: ; Notified At: ; Arrived At: Physician: Stroke Resident; Name: ; Notified At: ; Arrived At: Physician: ED Attending; Name: ; Notified At: ; Arrived At: Physician: ED Resident; Name: ; Notified At: ; Arrived At: Historical: - Allergies: 11:04 No Known Allergies; ss - PMHx: 11:04 CVA; GERD; ss - PSHx: 11:04 Gastric bypass; Cervical Fusion; ss - Immunization history:: Adult Immunizations up to date, Client reports having NOT received the Covid vaccine. - Social history:: Smoking status: Patient reports the use of cigarette tobacco products, smokes one pack cigarettes per day. Screenin:09 Abuse screen: Denies threats or abuse. Denies injuries from another. Nutritional kg screening: No deficits noted. Tuberculosis screening: No symptoms or risk factors identified. Fall Risk None identified. No fall in past 12 months (0 pts). No secondary diagnosis (0 pts). IV access (20 points). Ambulatory Aid- None/Bed Rest/Nurse Assist (0 pts). Gait- Normal/Bed Rest/Wheelchair (0 pts) Mental Status- Oriented to own ability (0 pts). Total Tafoya Fall Scale indicates No Risk (0-24 pts). Assessment: 17:09 VAN Scoring: Arm Drift: Patients demonstrates NO arm weakness. Patient is VAN Negative. kg Patient has been NPO before screening. The patient has not been NPO before screening. The patient is currently on the following diet: Regular The patient is alert, and able to follow commands. The patient does not exhibit slurred or garbled speech. The patient is not exhibiting difficulty speaking. The patient does not exhibit difficulty understanding words. The patient is able to swallow own secretions with no drooling or need for suction. Patient tolerated one teaspoon of water. No drooling, immediate coughing, gurgling, or clearing of the throat was noted. The patient passed the bedside swallow screening. Oral medications may be given as ordered. Contact Physician for further diet orders. T-PA (Activase) Screening: Contraindications: Patient reports onset of signs and symptoms of stroke greater than 6 hours ago: Yes. General: Appears in no apparent distress. Behavior is calm, cooperative, appropriate for age. Pain: Complains of pain in face Pain does not radiate. Pain currently is 4 out of 10 on a pain scale. at worst was 4 out of 10 on a pain scale. level that patient reports is acceptable is 3 out of 10 on a pain scale. Quality of pain is described as aching, sharp, stabbing. Neuro: Level of Consciousness is awake, alert, obeys commands, Oriented to person, place, time, situation, Appropriate for age Certified [employer] Engineer are equal bilaterally Moves all extremities. Full function Gait is steady, Speech is normal, Facial symmetry appears normal, Pupils are PERRLA, Intact. Cardiovascular: Heart tones S1 S2 Capillary refill < 3 seconds Pulses are all present. Respiratory: No deficits noted. Airway is patent Respiratory effort is even, unlabored, relaxed, Respiratory pattern is regular, Breath sounds are clear bilaterally. GI: No deficits noted. : No deficits noted. EENT: No deficits noted. Derm: No deficits noted. Musculoskeletal: No deficits noted. 17:09 The patient tolerated 90mL of water. No drooling, immediate coughing, gurgling, or kg clearing of the throat was noted. Vital Signs: 11:02 BP 149 / 81; Pulse 95; Resp 16; Temp 98.6(TE); Pulse Ox 100% on R/A; Weight 112.94 kg; ss Height 5 ft. 2 in. (157.48 cm); Pain 7/10; 14:30 BP 118 / 73; Pulse 92; Resp 20; Pulse Ox 100% on R/A; kg 15:30 BP 120 / 83; Pulse 93; Resp 20; Pulse Ox 100% on R/A; kg 16:00 BP 132 / 72; Pulse 81; Resp 20; Pulse Ox 100% on R/A; kg 17:00 BP 131 / 89; Pulse 93; Resp 20; Pulse Ox 100% ; kg 18:45 BP 138 / 78; Pulse 96; Resp 20; Pulse Ox 100% on R/A; kg 11:02 Body Mass Index 45.54 (112.94 kg, 157.48 cm) NIH Stroke Scale Scores: 14:38 NIHSS Score: 0 jr8 17:09 NIHSS Score: 1 kg ED Course: 10:29 Patient arrived in ED. ds1 11:04 Triage completed. ss 11:04 Arm band placed on right wrist. ss 11:17 CT Head Brain wo Cont In Process Unspecified. EDMS 13:29 Panchito Lind PA is PHCP. jr8 13:29 Shamar Mendes MD is Attending Physician. jr8 13:44 Sheron Lopez, GUERA is Primary Nurse. kg 13:47 XRAY Chest (1 view) In Process Unspecified. EDMS 14:39 US Carotid Artery Bilateral In Process Unspecified. EDMS 14:45 Inserted saline lock: 20 gauge in left antecubital area, using aseptic technique. kg 15:30 Basic Metabolic Panel Sent. kg 15:31 LFT's Sent. kg 16:19 CT Head Angio In Process Unspecified. EDMS 17:09 Patient has correct armband on for positive identification. Bed in low position. Call kg light in reach. Side rails up X2. 17:09 No provider procedures requiring assistance completed. IV discontinued, intact, kg bleeding controlled, No redness/swelling at site. Pressure dressing applied. 17:18 MRI - Brain Wo Cont In Process Unspecified. EDMS 18:37 Jacky Ambrocio MD is Referral Physician. jr8 Administered Medications: 14:40 Drug: Aspirin 81 mg Route: PO; kg 15:00 Follow up: Response: No adverse reaction kg 14:40 Drug: PlaVIX (clopidogrel) 75 mg Route: PO; kg 15:02 Follow up: Response: No adverse reaction kg 18:26 Drug: Atorvastatin 40 mg Route: PO; kg 19:30 Follow up: Response: No adverse reaction kg 18:26 Drug: foLIC Acid 1 mg Route: IVPB; Site: left antecubital; kg 19:29 Follow up: IV Status: Completed infusion; IV Intake: 0.2ml kg 19:30 Follow up: Response: No adverse reaction kg 19:08 Drug: Reglan (metoCLOPramide) 10 mg Route: IVP; Site: left antecubital; kg 19:23 Follow up: Response: No adverse reaction; Marked relief of symptoms kg 19:08 Drug: Benadryl (diphenhydrAMINE) 25 mg Route: IVP; Site: left antecubital; kg 19:23 Follow up: Response: No adverse reaction; Marked relief of symptoms kg Intake: 19:29 IV: 0ml; Total: 0ml. kg Outcome: 17:09 Discharged to home ambulatory. kg 17:09 Discharged to home with family, with significant other. 17:09 Condition: good 17:09 Discharge instructions given to patient, Instructed on discharge instructions, follow up and referral plans. Demonstrated understanding of instructions, follow-up care, medications, Prescriptions given X 3. 18:39 Discharge ordered by MD. dobbs 19:44 Patient left the ED. kg NIH Stroke Scale - NIH Stroke Score Date: 04/15/2021 Time: 14:38 Total Score = 0 1a. Level of Consciousness (LOC) - 0(Alert) 1b. Level of Consciousness (LOC) (Month \T\ Age) - 0(Both) 1c. LOC Commands (Open \T\ Closes Eyes/Smart Grid Engineer) - 0(Both) 2. Best Gaze (Lateral Gaze Paresis) - 0(Normal) 3. Visual Field Loss - 0(No visual loss) 4. Facial Palsy - 0(Normal) 5a. Left Arm: Motor (10-second hold) - 0(No drift) 5b. Right Arm: Motor (10-second hold) - 0(No drift) 6a. Left Leg: Motor (5-second hold - always test supine) - 0(No drift) 6b. Right Leg: Motor (5-second hold - always test supine) - 0(No drift) 7. Limb Ataxia (finger/nose \T\ heel/pryor - test with eyes open) - 0(Absent) 8. Sensory Loss (pinprick arms/legs/face) - 0(Normal) 9. Best Language: Aphasia (description/naming/reading) - 0(No aphasia) 10. Dysarthria (speech clarity - read or repeat words) - 0(Normal) 11. Extinction and Inattention (visual/tactile/auditory/spatial/personal) - 0(No abnormality) Initials: jr8 NIH Stroke Scale - NIH Stroke Score Date: 04/15/2021 Time: 17:09 Total Score = 1 1a. Level of Consciousness (LOC) - 0(Alert) 1b. Level of Consciousness (LOC) (Month \T\ Age) - 0(Both) 1c. LOC Commands (Open \T\ Closes Eyes/Smart Grid Engineer) - 0(Both) 2. Best Gaze (Lateral Gaze Paresis) - 0(Normal) 3. Visual Field Loss - 0(No visual loss) 4. Facial Palsy - 0(Normal) 5a. Left Arm: Motor (10-second hold) - 0(No drift) 5b. Right Arm: Motor (10-second hold) - 0(No drift) 6a. Left Leg: Motor (5-second hold - always test supine) - 0(No drift) 6b. Right Leg: Motor (5-second hold - always test supine) - 0(No drift) 7. Limb Ataxia (finger/nose \T\ heel/pryor - test with eyes open) - 0(Absent) 8. Sensory Loss (pinprick arms/legs/face) - 0(Normal) 9. Best Language: Aphasia (description/naming/reading) - 0(No aphasia) 10. Dysarthria (speech clarity - read or repeat words) - 1(Mild to Moderate) 11. Extinction and Inattention (visual/tactile/auditory/spatial/personal) - 0(No abnormality) Initials: kg Signatures: Dispatcher [employer] Ashley Edmond ds1 Harleen Sebastian RN RN Panchito Lind PA PA jr8 Sheron Lopez RN RN kg
--- NOTE | 2021-04-15 18:40 | EDPHYS ---
Physician Documentation [facility] Name: Samara Hopson Age: 50 yrs Sex: Female : 1970 Arrival Date: 04/15/2021 Time: 10:29 Bed 17 Private MD: SHELLI Physician Shamar Mendes HPI: 04/15 14:38 This 50 yrs old Female presents to ER via Ambulatory with complaints of S/S jr8 of Possible Stroke. 14:38 Onset: The symptoms/episode began/occurred acutely, 2 day(s) ago. Duration: This was a jr8 single incident, The episodes are intermittent. The symptoms are alleviated by nothing. The symptoms are aggravated by nothing. Associated signs and symptoms: Pertinent positives: confusion, numbness. Severity of symptoms: At their worst the symptoms were mild in the emergency department the symptoms have improved. The patient has not experienced similar symptoms in the past. The patient has not recently seen a physician. This is a 50-year-old female patient that presented to the emergency room for symptoms of numbness to right hand and forgetfulness. Patient stated that this past Tuesday she started noticing numbness and tingling to the right hand that was intermittent in nature but now has resolved. Patient stated that soon after that started having left-sided migraines and forgetfulness. 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 Stated that the numbness has now gone away but still having intermittent headaches and forgetfulness. CRAS: 19:29 LMP N/A - Post-menopause kg Historical: - Allergies: 11:04 No Known Allergies; ss - PMHx: 11:04 CVA; GERD; ss - PSHx: 11:04 Gastric bypass; Cervical Fusion; ss - Immunization history:: Adult Immunizations up to date, Client reports having NOT received the Covid vaccine. - Social history:: Smoking status: Patient reports the use of cigarette tobacco products, smokes one pack cigarettes per day. ROS: 14:38 Eyes: Negative for injury, pain, redness, and discharge, ENT: Negative for injury, jr8 pain, and discharge, Neck: Negative for injury, pain, and swelling, Cardiovascular: Negative for chest pain, palpitations, and edema, Respiratory: Negative for shortness of breath, cough, wheezing, and pleuritic chest pain, Abdomen/GI: Negative for abdominal pain, nausea, vomiting, diarrhea, and constipation, Back: Negative for injury and pain, MS/Extremity: Negative for injury and deformity, Skin: Negative for injury, rash, and discoloration. 14:38 Neuro: Positive for altered mental status, numbness. Exam: 14:38 Radiologist reports: 3 cm left hypodense region in the occipita area jr8 14:38 Constitutional: This is a well developed, well nourished patient who is awake, alert, and in no acute distress. Eyes: Pupils equal round and reactive to light, extra-ocular motions intact. Lids and lashes normal. Conjunctiva and sclera are non-icteric and not injected. Cornea within normal limits. Periorbital areas with no swelling, redness, or edema. ENT: Nares patent. No nasal discharge, no septal abnormalities noted. Tympanic membranes are normal and external auditory canals are clear. Oropharynx with no redness, swelling, or masses, exudates, or evidence of obstruction, uvula midline. Mucous membranes moist. Neck: Trachea midline, no thyromegaly or masses palpated, and no cervical lymphadenopathy. Supple, full range of motion without nuchal rigidity, or vertebral point tenderness. No Meningismus. Cardiovascular: Regular rate and rhythm with a normal S1 and S2. No gallops, murmurs, or rubs. Normal PMI, no JVD. No pulse deficits. Respiratory: Lungs have equal breath sounds bilaterally, clear to auscultation and percussion. No rales, rhonchi or wheezes noted. No increased work of breathing, no retractions or nasal flaring. Abdomen/GI: Soft, non-tender, with normal bowel sounds. No distension or tympany. No guarding or rebound. No evidence of tenderness throughout. Back: No spinal tenderness. No costovertebral tenderness. Full range of motion. Skin: Warm, dry with normal turgor. Normal color with no rashes, no lesions, and no evidence of cellulitis. MS/ Extremity: Pulses equal, no cyanosis. Neurovascular intact. Full, normal range of motion. Neuro: Awake and alert, GCS 15, oriented to person, place, time, and situation. Cranial nerves II-XII grossly intact. Motor strength 5/5 in all extremities. Sensory grossly intact. Cerebellar exam normal. Normal gait. Vital Signs: 11:02 BP 149 / 81; Pulse 95; Resp 16; Temp 98.6(TE); Pulse Ox 100% on R/A; Weight 112.94 kg; ss Height 5 ft. 2 in. (157.48 cm); Pain 7/10; 14:30 BP 118 / 73; Pulse 92; Resp 20; Pulse Ox 100% on R/A; kg 15:30 BP 120 / 83; Pulse 93; Resp 20; Pulse Ox 100% on R/A; kg 16:00 BP 132 / 72; Pulse 81; Resp 20; Pulse Ox 100% on R/A; kg 17:00 BP 131 / 89; Pulse 93; Resp 20; Pulse Ox 100% ; kg 18:45 BP 138 / 78; Pulse 96; Resp 20; Pulse Ox 100% on R/A; kg 11:02 Body Mass Index 45.54 (112.94 kg, 157.48 cm) ss NIH Stroke Scale Scores: 14:38 NIHSS Score: 0 jr8 17:09 NIHSS Score: 1 kg MDM: 13:30 Patient medically screened. 8 18:16 Data reviewed: vital signs, nurses notes, lab test result(s), EKG, radiologic studies, [facility] CT scan, MRI, ultrasound. Data interpreted: Pulse oximetry: on room air is 100 %. Interpretation: normal. Counseling: I had a detailed discussion with the patient and/or guardian regarding: the historical points, exam findings, and any diagnostic results supporting the discharge/admit diagnosis, lab results, radiology results, the need for outpatient follow up, a neurologist, to return to the emergency department if symptoms worsen or persist or if there are any questions or concerns that arise at home. ED course: I had a detailed discussion with Dr. Carrillo about case. Believes that this is migrainous in nature and will start her on a preventative for this along with statin therapy, aspirin, folic acid. At this time there was no large vessel occlusion and no other acute abnormality on CT or MRI. Being said and patient being without any acute focal neurologic deficits at this time. We will put patient on the medications listed above and she will follow up with Dr. Ambrocio her normal neurologist as soon as possible. Knows to come back if something were to change.. 04/15 13:30 Order name: Basic Metabolic Panel jr04/15 13:30 Order name: CBC with Diff; Complete Time: 15:51 8 04/15 13:30 Order name: LFT's 8 04/15 13:30 Order name: Magnesium; Complete Time: 15:38 8 04/15 13:30 Order name: NT PRO-BNP; Complete Time: 15:38 8 04/15 13:30 Order name: PT-INR; Complete Time: 15:15 8 04/15 11:06 Order name: CT Head Brain wo Cont; Complete Time: 13:30 ss 04/15 13:30 Order name: Troponin (emerg Dept Use Only); Complete Time: 15:38 8 04/15 13:30 Order name: XRAY Chest (1 view); Complete Time: 14:23 8 04/15 13:31 Order name: Basic Metabolic Panel; Complete Time: 15:38 EDMS 04/15 13:31 Order name: Liver (Hepatic) Function; Complete Time: 15:38 EDMS 04/15 14:00 Order name: MRI - Brain Wo Cont; Complete Time: 17:52 8 04/15 15:48 Order name: CBC Smear Scan; Complete Time: 15:51 EDMS 04/15 16:58 Order name: SARS-COV-2 RT PCR; Complete Time: 17:41 EDMS 04/15 13:30 Order name: EKG; Complete Time: 13:31 8 04/15 13:30 Order name: Cardiac monitoring; Complete Time: 15:30 8 04/15 13:30 Order name: EKG - Nurse/Tech; Complete Time: 19:44 8 04/15 13:30 Order name: IV Saline Lock; Complete Time: 15:31 8 04/15 13:30 Order name: Labs collected and sent; Complete Time: 15:31 8 04/15 13:30 Order name: O2 Per Protocol; Complete Time: 15:31 8 04/15 13:30 Order name: O2 Sat Monitoring; Complete Time: 15:31 04/15 14:00 Order name: US Carotid Artery Bilateral; Complete Time: 15:01 8 04/15 15:21 Order name: CT Head Angio; Complete Time: 17:41 jr8 Administered Medications: 14:40 Drug: Aspirin 81 mg Route: PO; kg 15:00 Follow up: Response: No adverse reaction kg 14:40 Drug: PlaVIX (clopidogrel) 75 mg Route: PO; kg 15:02 Follow up: Response: No adverse reaction kg 18:26 Drug: Atorvastatin 40 mg Route: PO; kg 19:30 Follow up: Response: No adverse reaction kg 18:26 Drug: foLIC Acid 1 mg Route: IVPB; Site: left antecubital; kg 19:29 Follow up: IV Status: Completed infusion; IV Intake: 0.2ml kg 19:30 Follow up: Response: No adverse reaction kg 19:08 Drug: Reglan (metoCLOPramide) 10 mg Route: IVP; Site: left antecubital; kg 19:23 Follow up: Response: No adverse reaction; Marked relief of symptoms kg 19:08 Drug: Benadryl (diphenhydrAMINE) 25 mg Route: IVP; Site: left antecubital; kg 19:23 Follow up: Response: No adverse reaction; Marked relief of symptoms kg Disposition: 04/16 07:29 Co-signature as Attending Physician, Shamar Mendes MD I agree with the assessment and blossom plan of care. Disposition Summary: 04/15/21 18:39 Discharge Ordered Location: Home jr8 Problem: new jr8 Symptoms: have improved jr8 Condition: Stable jr8 Diagnosis - Hemiplegic migraine, intractable, with status migrainosus jr8 - Cerebral infarction, unspecified jr8 Followup: jr8 - With: Jacky Ambrocio MD - When: 5 - 6 days - Reason: Recheck today's complaints, Continuance of care, Re-evaluation by your physician Discharge Instructions: - Discharge Summary Sheet jr8 - Migraine Headache jr8 - Ischemic Stroke jr8 Forms: - Medication Reconciliation Form jr8 - Thank You Letter jr8 - Antibiotic Education jr8 - Prescription Opioid Use jr8 - Work release form kg Prescriptions: - atorvastatin 40 mg Oral tablet - take 1 tablet by ORAL route once daily; 30 tablet; Refills: 0, Product jr8 Selection Permitted - Folic Acid 1 mg Oral Tablet - take 1 tablet by ORAL route once daily; 30 tablet; Refills: 0, Product jr8 Selection Permitted NIH Stroke Scale - NIH Stroke Score Date: 04/15/2021 Time: 14:38 Total Score = 0 1a. Level of Consciousness (LOC) - 0(Alert) 1b. Level of Consciousness (LOC) (Month \T\ Age) - 0(Both) 1c. LOC Commands (Open \T\ Closes Eyes/Tension Machine Operator) - 0(Both) 2. Best Gaze (Lateral Gaze Paresis) - 0(Normal) 3. Visual Field Loss - 0(No visual loss) 4. Facial Palsy - 0(Normal) 5a. Left Arm: Motor (10-second hold) - 0(No drift) 5b. Right Arm: Motor (10-second hold) - 0(No drift) 6a. Left Leg: Motor (5-second hold - always test supine) - 0(No drift) 6b. Right Leg: Motor (5-second hold - always test supine) - 0(No drift) 7. Limb Ataxia (finger/nose \T\ heel/pryor - test with eyes open) - 0(Absent) 8. Sensory Loss (pinprick arms/legs/face) - 0(Normal) 9. Best Language: Aphasia (description/naming/reading) - 0(No aphasia) 10. Dysarthria (speech clarity - read or repeat words) - 0(Normal) 11. Extinction and Inattention (visual/tactile/auditory/spatial/personal) - 0(No abnormality) Initials: jr8 NIH Stroke Scale - NIH Stroke Score Date: 04/15/2021 Time: 17:09 Total Score = 1 1a. Level of Consciousness (LOC) - 0(Alert) 1b. Level of Consciousness (LOC) (Month \T\ Age) - 0(Both) 1c. LOC Commands (Open \T\ Closes Eyes/Tension Machine Operator) - 0(Both) 2. Best Gaze (Lateral Gaze Paresis) - 0(Normal) 3. Visual Field Loss - 0(No visual loss) 4. Facial Palsy - 0(Normal) 5a. Left Arm: Motor (10-second hold) - 0(No drift) 5b. Right Arm: Motor (10-second hold) - 0(No drift) 6a. Left Leg: Motor (5-second hold - always test supine) - 0(No drift) 6b. Right Leg: Motor (5-second hold - always test supine) - 0(No drift) 7. Limb Ataxia (finger/nose \T\ heel/pryor - test with eyes open) - 0(Absent) 8. Sensory Loss (pinprick arms/legs/face) - 0(Normal) 9. Best Language: Aphasia (description/naming/reading) - 0(No aphasia) 10. Dysarthria (speech clarity - read or repeat words) - 1(Mild to Moderate) 11. Extinction and Inattention (visual/tactile/auditory/spatial/personal) - 0(No abnormality) Initials: kg Signatures: Dispatcher [employer] Shamar Hernadez MD MD cha Smirch, Shelby, RN RN Panchito Villanueva PA PA jr8 Sheron Lopez RN RN kg
[2021-04-15] MEDS ORDERED: ATORVASTATIN 20 MG TAB ONE (18:43)
[2021-04-15] MEDS ORDERED: FOLIC ACID 5 MG/ML VIAL ONE (18:45)
[2021-04-15] MEDS ORDERED: DIPHENHYDRAMINE 50 MG/ML VIAL ONE (19:13)
[2021-04-15] MEDS ORDERED: METOCLOPRAMIDE 10 MG/2mL INJ ONE (19:13)
[2021-04-15 19:49] VITALS: TEMP 98.6; O2SAT 100
[2021-04-15 20:01] VITALS: BP 138/78
== END 2021-04-15 19:44 | disposition home or self-care (01) ==
LOC: ER 10:21
DX: I63.9 Cerebral infarction, unspecified (principal); R29.701 NIHSS score 1; F17.210 Nicotine dependence, cigarettes, uncomplicated; Z86.73 Personal history of transient ischemic attack (TIA), and cerebral infarction without residual deficits; Z20.822 Contact with and (suspected) exposure to COVID-19
CPT/HCPCS: 96365; 93005; 85025; 80048; 36415; 83735; 85610; 80076; 84484; 83880; 70450; 70496; 71045; 93880; 70551; 96375; 99284; U0003; Q9967; J2765; J1200

== ENCOUNTER 2023-02-03 01:17 | Emergency (ER) | payer OTHER ==
--- OUTSIDE RECORDS SUMMARY | 2023-02-03 01:34 | XMS REPORT | Continuity of Care Document ---
:1970 Author Organization [facility] t Address [address] [address] [place] [address] Care Team Providers Name Role Phone Pcp, Patient Does Not Have A Primary Care Physician [phone] Jacky Ambrocio Attending Clinician LUIZA LUNA Attending Clinician Unavailable Luiza Morales Attending Clinician LOUISA BATRES Attending Clinician Unavailable LOUISA BATRES Attending Clinician Unavailable KRISSY MALONE Attending Clinician Unavailable Doctor Unassigned, [place] Attending Clinician Unavailable Rehab, Adc Cardiac Attending Clinician Unavailable Krissy Malone MD Attending Clinician Tennille Peralta LVN Attending Clinician Reba Mckeon DO Attending Clinician Saad Alfaro MD Attending Clinician Mati Samuel DO Attending Clinician Aiden Prado MD Attending Clinician AIDEN PRADO Attending Clinician Unavailable Carlos Alberto MATT, Layla Buenrostro Attending Clinician Ceferino MATT, Davie Taylor Attending Clinician Danny Mejia Attending Clinician VISIT, NURSE JENNIE Attending Clinician Unavailable Osman Rodriguez Attending Clinician Fina Corcoran Attending Clinician Aiden Prado MD Admitting Clinician AIDEN PRADO Admitting Clinician Unavailable Payers Payer Name Policy Type Policy Number Effective Date Expiration Date [facility] [id number] 2022 PPO 00:00:00 Problems Condition Condition Condition Status Onset Resolution Last Treating Co mments Source Name Details Category Date Date Treatment Clinician Date Essential Essential Disease Active Uni vers hypertensi hypertensi 9-16 it y of on on 00:00: [place] [facility] Dyslipidem Dyslipidem Disease Active U nivers ia ia -16 ity of 00:00: [place] [facility] Chest Chest Disease Active Univers pain, pain, 915 ity of [place] type 00 [facility] Morbid Morbid Disease Active Univers obesity obesity 9-15 [place] of with [place] mass index 00 Me dical of of Branch 40.0-49.9 40.0-49.9 G43.109 - G43.109 - Diagnosis Active 2020-06-11 Memoria "MIGRAINE "MIGRAINE 06-04 14:07:00 l WITH AURA, WITH AURA, 00:01: He rmann NOT INTRA NOT INTRA 00 Active 06/04/2020 OPID Manav R51 - R51 - Diagnosis Active 2019-06-04 Mem oria HEADACHE HEADACHE 06-04 16:27:00 l Active 00:01: [place] 06/04/2019 00 OPID Dorinawoo d M25.511 - M25.511 - Diagnosis Active 2023-01-11 Memoria PAIN IN PAIN IN 16:00:00 l RIGHT RIGHT [place] SHOULDER SHOULDER Active OPID Manav M54.12 - M54.12 - Diagnosis Active 2023-01-15 Memoria RADICULOPA RADICULOPA 13:51:00 l THY, THY, [place] CERVICAL CERVICAL REGION REGION Active OPID [place] Acid Acid Problem Resolve 2022-03-18 Catrachito darlin reflux reflux d 22:00:38 l (finding) (finding) Herm sienna Resolved Problem 03/18/2022 Medical Group,[facility] her Neuro, OPID Friendswoo d, OPID [place] Benign Benign Problem Resolve 2022-03-18 Mem oria hypertensi hypertensi d 22:00:38 l on on [place] (disorder) (disorder) Resolved Problem 03/18/2022 Medical Group,[facility] her Neuro, OPID Friendswoo d, OPID [place] Diabetes Diabetes Problem Resolve 2022-03-18 Memoria mellitus mellitus d 22:00:38 l (disorder) (disorder) He rmann Resolved Problem 03/18/2022 Medical Group,[facility] her Neuro, OPID Friendswoo d, OPID [place] Heavy Heavy Problem Active 2021-01-26 Memor ia cigarette cigarette 23:22:40 l smoker smoker [place] (finding) (finding) Active Problem 01/26/2021 Medical Group,[facility] her Neuro, OPID Friendswoo d, OPID [place] Anemia Anemia Problem Active 2021-07-05 Catrachito darlin (disorder) (disorder) 21:39:12 l Active [place] Problem 07/05/2021 [facility] Sinus Sinus Problem Active 2021-07-05 Memor ia headache headache 21:39:12 l (finding) (finding) Herm sienna Active Problem 07/05/2021 Medical Group,[facility] her Neuro Cerebrovas Cerebrova Problem Active 2023-01-30 Memoria cular scular 13:12:45 l accident accident Sherwin n (disorder) (disorder) Active Problem 01/30/2023 Medical Group,[facility] her Neuro,Catrachito rial [facility] Cervical Cervical Problem Active 2023-01-30 Memoria radiculopa radiculopa 13:12:45 l thy thy [place] (disorder) (disorder) Active Problem 01/30/2023 [facility] [place] Constipati Constipat Problem Active 2023-01-30 Memoria on ion 13:12:45 l (disorder) (disorder) He rmann Active Problem 01/30/2023 Medical Group,[facility] her Neuro,[facility] Diabetes Diabetes Problem Active 2023-01-30 Memoria mellitus mellitus 13:12:45 l type 2 type 2 [place] (disorder) (disorder) Active Problem 01/30/2023 Automatica lly added by Discern Expert with order of Add Problem Diabetes Type II on December 31, 2022 09:29:19 CDT with order ID: [id number] 9.0 entered by Jacky Ambrocio MD. [facility] Exercise-i Exercise- Problem Active 2023-01-30 Memoria nduced induced 13:12:45 l asthma asthma [place] (disorder) (disorder) Active Problem 01/30/2023 Medical Group,[facility] her Neuro, OPIAnselmo Friendswkadi rodriguez,[facility] Gastroesop Gastroeso Problem Active 2023-01-30 Memoria hageal phageal 13:12:45 l reflux reflux [place] disease disease without without esophagiti esophagiti s s (disorder) (disorder) Active Problem 01/30/2023 Medical Group,[facility] her Neuro, ANDREINA rodriguez,[facility] Herpes Herpes Problem Active 2023-01-30 Catrachito darlin simplex simplex 13:12:45 l with with [place] complicati complicati on on (disorder) (disorder) Active Problem 01/30/2023 Medical Group,[facility] her Neuro, ANDREINA Friendswoo anselmo,[facility] History of History Problem Active 2023-01-30 Memoria - CVA of - CVA 13:12:45 l (context-d (context-d He rmann ependent ependent category) category) Active Problem 01/30/2023 Medical Group,[facility] her Neuro, OPIAnselmo Friendswkadi rodriguez,[facility] Hoarse Hoarse Problem Active 2023-01-30 Catrachito darlin (finding) (finding) 13:12:45 l Active [place] Problem 01/30/2023 [facility] Neuro,[facility] Hyperlipid Hyperlipi Problem Active 2023-01-30 Memoria emia demia 13:12:45 l (disorder) (disorder) He rmann Active Problem 01/30/2023 Medical Group,[facility] her Neuro, ANDREINA rodriguez, [facility] Hypertensi Hypertens Problem Active 2023-01-30 Memoria ve coretta 13:12:45 l disorder, disorder, Herm sienna systemic systemic arterial arterial (disorder) (disorder) Active Problem 01/30/2023 Medical Group,[facility] her [facility] Impaired Impaired Problem Active 2023-01-30 Memoria fasting fasting 13:12:45 l glycaemia glycaemia Herm sienna (disorder) (disorder) Active Problem 01/30/2023 Medical Group,[facility] her Neuro,[facility] Kline anselmo,[facility] Iron Iron Problem Active 2023-01-30 Memor ia deficiency deficiency 13:12:45 l anemia anemia [place]am (disorder) (disorder) Active Problem 01/30/2023 Medical Group,[facility] her [facility] Light Light Problem Active 2023-01-30 Memor ia cigarette cigarette 13:12:45 l smoker smoker [place] (finding) (finding) Active Problem 01/30/2023 Medical Group,[facility] her [facility] Migraine Migraine Problem Active 2023-01-30 Memoria with aura with aura 13:12:45 l (disorder) (disorder) He rmann Active Problem 01/30/2023 Medical Group,[facility] her [facility] Mixed Mixed Problem Active 2023-01-30 Memor ia hyperlipid hyperlipid 13:12:45 l emia emia [place] (disorder) (disorder) Active Problem 01/30/2023 Medical Group,[facility] her Neuro, ANDREINA rodriguez,[facility] Morbid Morbid Problem Active 2023-01-30 Mem oria obesity obesity 13:12:45 l (disorder) (disorder) He rmann Active Problem 01/30/2023 Medical Group,[facility] her Neuro, ANDREINA rodriguez,[facility] Patient Patient Problem Active 2023-01-30 Me moria non-compli non-compli 13:12:45 l ance - ance - [place] general general (context-d (context-d ependent ependent category) category) Active Problem 01/30/2023 Medical Group,[facility] her Neuro, ANDREINA Friendswkadi d, [facility] Pes Pes Problem Active 2023-01-30 Memor ia anserinus anserinus 13:12:45 l bursitis bursitis Sherwin n (disorder) (disorder) Active Problem 01/30/2023 Medical Group,[facility] her Neuro, DIANELYSD Friendswoo d, ANDREINA mE,[facility] Shoulder Shoulder Problem Active 2023-01-30 Memoria pain pain 13:12:45 l (finding) (finding) Herm sienna Active Problem 01/30/2023 [facility] [place] History of Past Illness Condition Condition Condition Status Onset Resolution Last Treating Co mments Source Name Details Category Date Date Treatment Clinician Date Cyst and Cyst and Problem 2020-092021-07-17 2021-07-17 Memoria mucocele mucocele - 01:37:14 01:37:14 l of nose of nose 18:26: [place] and nasal and nasal 00 sinus sinus 07/14/2021 Medical Group Encounter Encounter Problem 2020-092021-07-17 2021-07-17 Memoria for for 09-13 01:37:14 01:37:14 l immunizati immunizati 18:21: He rmann on on 07/14/2021 Medical Group Gastro-eso Gastro-es Problem 2020-092021-07-17 2021-07-17 Memoria phageal ophageal - 01:37:14 01:37:14 l reflux reflux 18:18: [place] disease disease 00 without without esophagiti esophagiti s s 07/14/2021 07/17/2021 Medical Group Other iron Other Problem 2020-092021-07-17 2021-07-17 Memoria deficiency iron - 01:37:14 01:37:14 l anemias deficiency 18:16: Ariana nn anemias 00 07/14/2021 07/17/2021 Medical Group Other Other Problem 2020-092021-07-17 2021-07-17 Max stein constipati constipati 09-13 01:37:14 01:37:14 l on on 18:16: [place]am 07/14/2021 00 Medical Group Allergies, Adverse Reactions, Alerts Allergy Allergy Status Severity Reaction(s) Onset Inactive Treating Comm ents Source Name Type Date Date Clinician No Known DA Active [facility]-30 [facility] [place] No Known DA Active [facility] Allergie 3-20 [place] [facility] 00[facility]00: [facility] l NO KNOWN Drug Active Univers ALLERGIE Class ity of S [facility] Social History Social Habit Start Date Stop Date Quantity Comments Source History of Cigarette Smoker Universi ty of tobacco use [facility] Alcohol intake 2023-01-18 2023-01-18 Ex-drinker [facility] 00:00:00 00:00:00 (finding) [facility] Exposure to 2023-01-07 2023-01-[address] [facility] SARS-CoV-2 00:00:00 13:10:00 [facility] (event) [place] Tobacco use and 2022-05-27 2022-05-27 Smokeless tobacco Un iversity of exposure 00:00:00 00:00:00 non-user [facility] Tobacco Comment 2022-05-27 2022-05-27 15 cigarretes per Un iversity of 00:00:00 00:00:00 day [facility] Social History 2015-12-24 2015-12-24 [facility] 18:11:14 18:11:14 Sex [birth year] Universit y of 00:00:00 00:00:00 [facility] Smoking Status Start Date Stop Date Source Tobacco smoking status 2023-01-18 14:50:42 Memor amor [place] Medications Ordered Filled Start Stop Current Ordering Indication Dosage Frequency Signature Comments Components Source Medication Medication Date Date Medication? Clinician (SIG) Name Name gabapentin Yes See Memoria 300 mg oral 01-18 Instructio l capsule 15:18: ns, 1 cap Ariana nn 00 PO BID and 2 po qhs, # 120 cap, 3 Refill(s), Pharmacy: [email or web address] #[id number], 154.94, cm, 01/18/23 9:56:00 CDT, Height, 112.727, kg, 01/18/23 9:56:00 CDT, Weight pantoprazol 2023-0 Yes 40mg Take 1 Univ ers e 40 mg EC 5-09 tablet by ity of tablet 13:07: mouth in [place] [address] the morning. Branch pantoprazol 2023-0 Yes 40mg Take 1 Univ ers e 40 mg EC 5-09 tablet by ity of tablet 13:07: mouth in [place] [address] the morning. Branch carvediloL 2023-0 Yes [id number] 12.5mg Take 1 Univers 12.5 mg 5-09 tablet by ity of tablet 00:00: mouth in [address] and 1 tablet in the evening. Take with meals. carvediloL 2023-0 Yes [id number] 12.5mg Take 1 Univers 12.5 mg 5-09 tablet by ity of tablet 00:00: mouth in [address] and 1 tablet in the evening. Take with meals. gabapentin 2023-0 Yes 300 mg = 1 M emoria 300 mg oral 4-26 cap, PO, l capsule 22:18: Bedtime, # Herm sienna 00 30 cap, 3 Refill(s), Pharmacy: [email or web address] cy #[id number], 154.94, cm, 01/05/23 16:38:00 CDT, Height, 111.506, kg, 01/05/23 16:38:00 CDT, Weight gabapentin 3-0 Yes 300 mg = 1 M emoria 300 mg oral 4-26 cap, PO, l capsule 22:18: Bedtime, # Herm sienna 00 30 cap, 3 Refill(s), Pharmacy: [email or web address] cy #[id number], 154.94, cm, 01/05/23 16:38:00 CDT, Height, 111.506, kg, 01/05/23 16:38:00 CDT, Weight Advil 2023-0 Yes PO, Q6H, 0 Memori a 4-26 Refill(s) l 21:41: [place] 00 Advil 2023-0 Yes PO, Q6H, 0 Memori a 4-26 Refill(s) l 21:41: [place] 00 baclofen 10 0 Yes 10 mg = 1 M emoria mg oral 4-21 tab, PO, l tablet 14:28: TID, # 90 Sherwin n 00 tab, 2 Refill(s), [id number] 154.94, cm, 12/31/22 9:07:00 CDT, Height, 111.364, kg, 12/31/22 9:07:00 CDT, Weight baclofen 10 0 Yes 10 mg = 1 M emoria mg oral 4-21 tab, PO, l tablet 14:28: TID, # 90 Sherwin n 00 tab, 2 Refill(s), Pharmacy: [facility] #[id number], 154.94, cm, 12/31/22 9:07:00 CDT, Height, 111.364, kg, 12/31/22 9:07:00 CDT, Weight clopidogrel 2022-0 Yes TAKE 1 Catrachito darlin 75 mg oral 4-21 TABLET BY l tablet 14:13: MOUTH [place] 00 EVERY DAY MetFORMIN 2022-0 Yes TAKE 1 Memori a (Eqv-Glucop 4-21 TABLET BY l wilman XR) 14:13: MOUTH [place] 500 mg oral 00 TWICE A tablet, DAY WITH extended MEALS release losartan 25 Yes TAKE 1 Catrachito darlin mg oral 4-21 TABLET BY l tablet 14:13: MOUTH [place] 00 EVERY DAY carvedilol 2022-0 Yes TAKE 1 Memor ia 12.5 mg 4-21 TABLET BY l oral tablet 14:13: MOUTH IN He rm 00 THE MORNING AND 1 TABLET IN THE EVENING. TAKE WITH MEALS. lisinopril 2022-0 Yes TAKE 1 Memor ia 5 mg oral 4-21 TABLET BY l tablet 14:13: MOUTH IN [place] 00 THE MORNING FOR 90 DAYS. clopidogrel 2022-0 Yes TAKE 1 Catrachito darlin 75 mg oral 4-21 TABLET BY l tablet 14:13: MOUTH [place] 00 EVERY DAY MetFORMIN 2022-0 Yes TAKE 1 Memori a (Eqv-Glucop 4-21 TABLET BY l wilman XR) 14:13: MOUTH [place] 500 mg oral 00 TWICE A tablet, DAY WITH extended MEALS release losartan 25 2022-0 Yes TAKE 1 Catrachito darlin mg oral 4-21 TABLET BY l tablet 14:13: MOUTH [place] 00 EVERY DAY carvedilol 2022-0 Yes TAKE 1 Memor ia 12.5 mg 4-21 TABLET BY l oral tablet 14:13: MOUTH IN [facility] 00 THE MORNING AND 1 TABLET IN THE EVENING. TAKE WITH MEALS. lisinopril 2022-0 Yes TAKE 1 Memor ia 5 mg oral 4-21 TABLET BY l tablet 14:13: MOUTH IN [place] 00 THE MORNING FOR 90 DAYS. losartan 25 2022-0 Yes 25mg Take 1 Univ ers mg tablet 3-26 tablet by ity o f 00:00: mouth in [place] 00 the Medical morning. Branch losartan 25 2022-0 Yes 25mg Take 1 Univ ers mg tablet 3-26 tablet by ity o f 00:00: mouth in [place] 00 the Medical morning. Branch divalproex 2021- Yes 500mg Take 500 Un nando ER 500 mg 0-19 mg by ity of 24 hr 13:32: mouth at [place] tablet 51 bedtime. Medical Branch divalproex 2021-09 Yes 500mg Take 500 Un nando ER 500 mg 0-19 mg by ity of 24 hr 13:32: mouth at [place] tablet 51 bedtime. Medical Branch divalproex 2021-09 Yes 500mg Take 500 Un nando ER 500 mg 0-19 mg by ity of 24 hr 13:32: mouth at [place] tablet 51 bedtime. Medical Branch divalproex 2021-09 Yes 500mg Take 500 Un nando ER 500 mg 0-19 mg by ity of 24 hr 13:32: mouth at [place] tablet 51 bedtime. Medical Branch divalproex 2021-09 Yes 500mg Take 500 Un nando ER 500 mg 0-19 mg by ity of 24 hr 13:32: mouth at [place] tablet 51 bedtime. Medical Branch divalproex 2021- Yes 500mg Take 500 Un nando ER 500 mg 0-19 mg by ity of 24 hr 13:32: mouth at [place] tablet 51 bedtime. Medical Branch divalproex 2021-09 Yes 500mg Take 500 Un nando ER 500 mg 0-19 mg by ity of 24 hr 13:32: mouth at [place] tablet 51 bedtime. Medical Branch divalproex 2021- Yes 500mg Take 500 Un nando ER 500 mg 0-19 mg by ity of 24 hr 13:32: mouth at [place] tablet 51 bedtime. Medical Branch divalproex 2021-09 Yes 500mg Take 500 Un nando ER 500 mg 0-19 mg by ity of 24 hr 13:32: mouth at [place] tablet 51 bedtime. Medical Branch divalproex 2021- Yes 500mg Take 500 Un nando ER 500 mg 0-19 mg by ity of 24 hr 13:32: mouth at [place] tablet 51 bedtime. Medical Branch divalproex 2021- Yes 500mg Take 500 Un nando ER 500 mg 0-19 mg by ity of 24 hr 13:32: mouth at [place] tablet 51 bedtime. Medical Branch divalproex 2021- Yes 500mg Take 500 Un nando ER 500 mg 0-19 mg by ity of 24 hr 13:32: mouth at [place] tablet 51 bedtime. Medical Branch divalproex 2021- Yes 500mg Take 500 Un nando ER 500 mg 0-19 mg by ity of 24 hr 13:32: mouth at [place] tablet 51 bedtime. Medical Branch divalproex 2021-09 Yes 500mg Take 500 Un nando ER 500 mg 0-19 mg by ity of 24 hr 13:32: mouth at [place] tablet 51 bedtime. Medical Branch divalproex 2021-09 Yes 500mg Take 500 Un nando ER 500 mg 0-19 mg by ity of 24 hr 13:32: mouth at [place] tablet 51 bedtime. Medical Branch divalproex 2021- Yes 500mg Take 500 Un nando ER 500 mg 0-19 mg by ity of 24 hr 13:32: mouth at [place] tablet 51 bedtime. Medical Branch divalproex 2021- Yes 500mg Take 500 Un nando ER 500 mg 0-19 mg by ity of 24 hr 13:32: mouth at [place] tablet 51 bedtime. Medical Branch divalproex 2021- Yes 500mg Take 500 Un nando ER 500 mg 0-19 mg by ity of 24 hr 13:32: mouth at [place] tablet 51 bedtime. Medical Branch divalproex 2021-1 Yes 500mg Take 500 Un nando ER 500 mg 0-19 mg by ity of 24 hr 13:32: mouth at [place] tablet 51 bedtime. Medical Branch divalproex 2021- Yes 500mg Take 500 Un nando ER 500 mg 0-19 mg by ity of 24 hr 13:32: mouth at [place] tablet 51 bedtime. Medical Branch divalproex 2021- Yes 500mg Take 500 Un nando ER 500 mg 0-19 mg by ity of 24 hr 13:32: mouth at [place] tablet 51 bedtime. Medical Branch divalproex 2021- Yes 500mg Take 500 Un nando ER 500 mg 0-19 mg by ity of 24 hr 13:32: mouth at [place] tablet 51 bedtime. Medical Branch divalproex 2021- Yes 500mg Take 500 Un nando ER 500 mg 0-19 mg by ity of 24 hr 13:32: mouth at [place] tablet 51 bedtime. Medical Branch divalproex 2021- Yes 500mg Take 500 Un nando ER 500 mg 0-19 mg by ity of 24 hr 13:32: mouth at [place] tablet 51 bedtime. Medical Branch divalproex 2021- Yes 500mg Take 500 Un nando ER 500 mg 0-19 mg by ity of 24 hr 13:32: mouth at [place] tablet 51 bedtime. Medical Branch divalproex 2021-09 Yes 500mg Take 500 Un nando ER 500 mg 0-19 mg by ity of 24 hr 13:32: mouth at [place] tablet 51 bedtime. Medical Branch divalproex 2021- Yes 500mg Take 500 Un nando ER 500 mg 0-19 mg by ity of 24 hr 13:32: mouth at [place] tablet 51 bedtime. Medical Branch divalproex 2021- Yes 500mg Take 500 Un nando ER 500 mg 0-19 mg by ity of 24 hr 13:32: mouth at [place] tablet 51 bedtime. Medical Branch divalproex 2021- Yes 500mg Take 500 Un nando ER 500 mg 0-19 mg by ity of 24 hr 13:32: mouth at [place] tablet 51 bedtime. Medical Branch divalproex 2021-1 Yes 500mg Take 500 Un nando ER 500 mg 0-19 mg by ity of 24 hr 13:32: mouth at [place] tablet 51 bedtime. Medical Branch divalproex 2021-1 Yes 500mg Take 500 Un nando ER 500 mg 0-19 mg by ity of 24 hr 13:32: mouth at [place] tablet 51 bedtime. Medical Branch divalproex 2021- Yes 500mg Take 500 Un nando ER 500 mg 0-19 mg by ity of 24 hr 13:32: mouth at [place] tablet 51 bedtime. Medical Branch divalproex 2021-09 Yes 500mg Take 500 Un nando ER 500 mg 0-19 mg by ity of 24 hr 13:32: mouth at [place] tablet 51 bedtime. Medical Branch divalproex 2021- Yes 500mg Take 500 Un nando ER 500 mg 0-19 mg by ity of 24 hr 13:32: mouth at [place] tablet 51 bedtime. Medical Branch divalproex 2021- Yes 500mg Take 500 Un nando ER 500 mg 0-19 mg by ity of 24 hr 13:32: mouth at [place] tablet 51 bedtime. Medical Branch divalproex 2021- Yes 500mg Take 500 Un nando ER 500 mg 0-19 mg by ity of 24 hr 13:32: mouth at [place] tablet 51 bedtime. Medical Branch divalproex 2021- Yes 500mg Take 500 Un nando ER 500 mg 0-19 mg by ity of 24 hr 13:32: mouth at [place] tablet 51 bedtime. Medical Branch divalproex 2021-09 Yes 500mg Take 500 Un nando ER 500 mg 0-19 mg by ity of 24 hr 13:32: mouth at [place] tablet 51 bedtime. Medical Branch divalproex 2021- Yes 500mg Take 500 Un nando ER 500 mg 0-19 mg by ity of 24 hr 13:32: mouth at [place] tablet 51 bedtime. Medical Branch divalproex 2021- Yes 500mg Take 500 Un nando ER 500 mg 0-19 mg by ity of 24 hr 13:32: mouth at [place] tablet 51 bedtime. Medical Branch divalproex 2021- Yes 500mg Take 500 Un nando ER 500 mg 0-19 mg by ity of 24 hr 13:32: mouth at [place] tablet 51 bedtime. Medical Branch divalproex 2021-1 Yes 500mg Take 500 Un nando ER 500 mg 0-19 mg by ity of 24 hr 13:32: mouth at [place] tablet 51 bedtime. Medical Branch divalproex 2021- Yes 500mg Take 500 Un nando ER 500 mg 0-19 mg by ity of 24 hr 13:32: mouth at [place] tablet 51 bedtime. Medical Branch divalproex 2021-09 Yes 500mg Take 500 Un nando ER 500 mg 0-19 mg by ity of 24 hr 13:32: mouth at [place] tablet 51 bedtime. Medical Branch divalproex 2021- Yes 500mg Take 500 Un nando ER 500 mg 0-19 mg by ity of 24 hr 13:32: mouth at [place] tablet 51 bedtime. Medical Branch divalproex 2021-09 Yes 500mg Take 500 Un nando ER 500 mg 0-19 mg by ity of 24 hr 13:32: mouth at [place] tablet 51 bedtime. Medical Branch divalproex 2021-09 Yes 500mg Take 500 Un nando ER 500 mg 0-19 mg by ity of 24 hr 13:32: mouth at [place] tablet 51 bedtime. Medical Branch divalproex 2021- Yes 500mg Take 500 Un nando ER 500 mg 0-19 mg by ity of 24 hr 13:32: mouth at [place] tablet 51 bedtime. Medical Branch divalproex 2021-09 Yes 500mg Take 500 Un nando ER 500 mg 0-19 mg by ity of 24 hr 13:32: mouth at [place] tablet 51 bedtime. Medical Branch divalproex 2021-09 Yes 500mg Take 500 Un nando ER 500 mg 0-19 mg by ity of 24 hr 13:32: mouth at [place] tablet 51 bedtime. Medical Branch divalproex 2021- Yes 500mg Take 500 Un nando ER 500 mg 0-19 mg by ity of 24 hr 13:32: mouth at [place] tablet 51 bedtime. Medical Branch divalproex 2021- Yes 500mg Take 500 Un nando ER 500 mg 0-19 mg by ity of 24 hr 13:32: mouth at [place] tablet 51 bedtime. Medical Branch divalproex 2021- Yes 500mg Take 500 Un n[place] ER 500 mg 0-19 mg by ity of 24 hr 13:32: mouth at [place] tablet 51 bedtime. Medical Branch divalproex 2021-1 Yes 500mg Take 500 Un nando ER 500 mg 0-19 mg by ity of 24 hr 13:32: mouth at [place] tablet 51 bedtime. Medical Branch divalproex 2021-09 Yes 500mg Take 500 Un nando ER 500 mg 0-19 mg by ity of 24 hr 13:32: mouth at [place] tablet 51 bedtime. Medical Branch divalproex 2021-09 Yes 500mg Take 500 Un n[place] ER 500 mg 0-19 mg by ity of 24 hr 13:32: mouth at [place] tablet 51 bedtime. Medical Branch divalproex 2021-09 Yes 500mg Take 500 Un n[place] ER 500 mg 0-19 mg by ity of 24 hr 13:32: mouth at [place] tablet 51 bedtime. Medical Branch divalproex 2021-09 Yes 500mg Take 500 Un nando ER 500 mg 0-19 mg by ity of 24 hr 13:32: mouth at [place] tablet 51 bedtime. Medical Branch divalproex 2021-09 Yes 500mg Take 500 Un n[place] ER 500 mg 0-19 mg by ity of 24 hr 13:32: mouth at [place] tablet 51 bedtime. [facility] divalproex 2021-09 Yes 500mg Take 500 [facility] 500 mg 0-19 mg by ity of 24 hr 13:32: mouth at [place] tablet 51 bedtime. [facility] divalproex 2021-09 Yes 500mg Take 500 [facility] [place] [facility] 500 mg 0-19 mg by ity of 24 hr 13:32: mouth at [place] tablet 51 bedtime. [facility] divalproex 2021-09 Yes 500mg Take 500 [facility] [place] [facility] 500 mg 0-19 mg by ity of 24 hr 13:32: mouth at [place] tablet 51 bedtime. [facility] metformin 2021-09 Yes 500mg Take 1 [facility] rs ER 500 mg 0-19 tablet by ity o f 24 hr 00:00: mouth [place] tablet 00 daily with Medical breakfast. Branch metformin 2021-09 Yes 500mg Take 1 [facility] rs ER 500 mg 0-19 tablet by ity o f 24 hr 00:00: mouth [place] tablet 00 daily with Medical breakfast. Branch metformin 2021-09 Yes 500mg Take 1 [facility] rs ER 500 mg 0-19 tablet by ity o f 24 hr 00:00: mouth [place] tablet 00 daily with Medical breakfast. Branch metformin 2021-09 Yes 500mg Take 1 [facility] rs ER 500 mg 0-19 tablet by ity o f 24 hr 00:00: mouth [place] tablet 00 daily with Medical breakfast. Branch metformin 2021-09 Yes 500mg Take 1 [facility] rs ER 500 mg 0-19 tablet by ity o f 24 hr 00:00: mouth [place] tablet 00 daily with Medical breakfast. Branch metformin 2021-09 Yes 500mg Take 1 [facility] rs ER 500 mg 0-19 tablet by ity o f 24 hr 00:00: mouth [place] tablet 00 daily with Medical breakfast. Branch metformin 2021-09 Yes 500mg Take 1 [facility] ER 500 mg 0-19 tablet by ity o f 24 hr 00:00: mouth [place] tablet 00 daily with Medical breakfast. Branch metformin 2021-09 Yes 500mg Take 1 [facility] ER 500 mg 0-19 tablet by ity o f 24 hr 00:00: mouth [place] tablet 00 daily with Medical breakfast. Branch metformin 2021-09 Yes 500mg Take 1 [facility] ER 500 mg 0-19 tablet by ity o f 24 hr 00:00: mouth [place] tablet 00 daily with Medical breakfast. Branch metformin 2021-09 Yes 500mg Take 1 [facility] rs ER 500 mg 0-19 tablet by ity o f 24 hr 00:00: mouth [place] tablet 00 daily with Medical breakfast. Branch metformin 2021-09 Yes 500mg Take 1 [facility] ER 500 mg 0-19 tablet by ity o f 24 hr 00:00: mouth [place] tablet 00 daily with Medical breakfast. Branch metformin 2021-09 Yes 500mg Take 1 [facility] rs ER 500 mg 0-19 tablet by ity o f 24 hr 00:00: mouth [place] tablet 00 daily with Medical breakfast. Branch metformin 2021-09 Yes 500mg Take 1 [facility] rs ER 500 mg 0-19 tablet by ity o f 24 hr 00:00: mouth [place] tablet 00 daily with Medical breakfast. Branch metformin 2021- Yes 500mg Take 1 [facility] rs ER 500 mg 0-19 tablet by ity o f 24 hr 00:00: mouth [place] tablet 00 daily with Medical breakfast. Branch metformin 2021- Yes 500mg Take 1 [facility] rs ER 500 mg 0-19 tablet by ity o f 24 hr 00:00: mouth [place] tablet 00 daily with Medical breakfast. Branch metformin 2021- Yes 500mg Take 1 [facility] rs ER 500 mg 0-19 tablet by ity o f 24 hr 00:00: mouth [place] tablet 00 daily with Medical breakfast. Branch metformin 2021- Yes 500mg Take 1 [facility] rs ER 500 mg 0-19 tablet by ity o f 24 hr 00:00: mouth [place] tablet 00 daily with Medical breakfast. Branch metformin 2021- Yes 500mg Take 1 [facility] rs ER 500 mg 0-19 tablet by ity o f 24 hr 00:00: mouth [place] tablet 00 daily with Medical breakfast. Branch metformin 2021- Yes 500mg Take 1 [facility] rs ER 500 mg 0-19 tablet by ity o f 24 hr 00:00: mouth [place] tablet 00 daily with Medical breakfast. Branch metformin 2021- Yes 500mg Take 1 [facility] rs ER 500 mg 0-19 tablet by ity o f 24 hr 00:00: mouth [place] tablet 00 daily with Medical breakfast. Branch metformin 2021- Yes 500mg Take 1 [facility] ER 500 mg 0-19 tablet by ity o f 24 hr 00:00: mouth [place] tablet 00 daily with Medical breakfast. Branch metformin 2021- Yes 500mg Take 1 [facility] rs ER 500 mg 0-19 tablet by ity o f 24 hr 00:00: mouth [place] tablet 00 daily with Medical breakfast. Branch metformin 2021- Yes 500mg Take 1 [facility] rs ER 500 mg 0-19 tablet by ity o f 24 hr 00:00: mouth [place] tablet 00 daily with Medical breakfast. Branch metformin 2021- Yes 500mg Take 1 [facility] ER 500 mg 0-19 tablet by ity o f 24 hr 00:00: mouth [place] tablet 00 daily with Medical breakfast. Branch metformin 2021- Yes 500mg Take 1 [facility] rs ER 500 mg 0-19 tablet by ity o f 24 hr 00:00: mouth [place] tablet 00 daily with Medical breakfast. Branch metformin 2021-1 Yes 500mg Take 1 [facility] ER 500 mg 0-19 tablet by ity o f 24 hr 00:00: mouth [place] tablet 00 daily with Medical breakfast. Branch metformin 2021-1 Yes 500mg Take 1 [facility] ER 500 mg 0-19 tablet by ity o f 24 hr 00:00: mouth [place] tablet 00 daily with Medical breakfast. Branch metformin 2021- Yes 500mg Take 1 [facility] ER 500 mg 0-19 tablet by ity o f 24 hr 00:00: mouth [place] tablet 00 daily with Medical breakfast. Branch metformin 2021-09 Yes 500mg Take 1 [facility] ER 500 mg 0-19 tablet by ity o f 24 hr 00:00: mouth [place] tablet 00 daily with Medical breakfast. Branch metformin 2021-09 Yes 500mg Take 1 [facility] ER 500 mg 0-19 tablet by ity o f 24 hr 00:00: mouth [place] tablet 00 daily with Medical breakfast. Branch metformin 2021-09 Yes 500mg Take 1 [facility] ER 500 mg 0-19 tablet by ity o f 24 hr 00:00: mouth [place] tablet 00 daily with Medical breakfast. Branch metformin 2021-09 Yes 500mg Take 1 [facility] ER 500 mg 0-19 tablet by ity o f 24 hr 00:00: mouth [place] tablet 00 daily with Medical breakfast. Branch metformin 2021-09 Yes 500mg Take 1 [facility] ER 500 mg 0-19 tablet by ity o f 24 hr 00:00: mouth [place] tablet 00 daily with Medical breakfast. Branch metformin 2021-09 Yes 500mg Take 1 [facility] ER 500 mg 0-19 tablet by ity o f 24 hr 00:00: mouth [place] tablet 00 daily with Medical breakfast. Branch metformin 2021-09 Yes 500mg Take 1 [facility] ER 500 mg 0-19 tablet by ity o f 24 hr 00:00: mouth [place] tablet 00 daily with Medical breakfast. Branch metformin 2021-09 Yes 500mg Take 1 [facility] ER 500 mg 0-19 tablet by ity o f 24 hr 00:00: mouth [place] tablet 00 daily with Medical breakfast. Branch metformin 2021-09 Yes 500mg Take 1 [facility] ER 500 mg 0-19 tablet by ity o f 24 hr 00:00: mouth [place] tablet 00 daily with Medical breakfast. Branch metformin 2021-09 Yes 500mg Take 1 [facility] rs ER 500 mg 0-19 tablet by ity o f 24 hr 00:00: mouth [place] tablet 00 daily with Medical breakfast. Branch metformin 2021-09 Yes 500mg Take 1 [facility] ER 500 mg 0-19 tablet by ity o f 24 hr 00:00: mouth [place] tablet 00 daily with Medical breakfast. Branch metformin 2021- Yes 500mg Take 1 [facility] ER 500 mg 0-19 tablet by ity o f 24 hr 00:00: mouth [place] tablet 00 daily with Medical breakfast. Branch metformin 2021-09 Yes 500mg Take 1 [facility] ER 500 mg 0-19 tablet by ity o f 24 hr 00:00: mouth [place] tablet 00 daily with Medical breakfast. Branch metformin 2021-09 Yes 500mg Take 1 [facility] ER 500 mg 0-19 tablet by ity o f 24 hr 00:00: mouth [place] tablet 00 daily with Medical breakfast. Branch metformin 2021-09 Yes 500mg Take 1 [facility] ER 500 mg 0-19 tablet by ity o f 24 hr 00:00: mouth [place] tablet 00 daily with Medical breakfast. Branch metformin 2021-09 Yes 500mg Take 1 [facility] ER 500 mg 0-19 tablet by ity o f 24 hr 00:00: mouth [place] tablet 00 daily with Medical breakfast. Branch metformin 2021-09 Yes 500mg Take 1 [facility] ER 500 mg 0-19 tablet by ity o f 24 hr 00:00: mouth [place] tablet 00 daily with Medical breakfast. Branch metformin 2021-09 Yes 500mg Take 1 [facility] ER 500 mg 0-19 tablet by ity o f 24 hr 00:00: mouth [place] tablet 00 daily with Medical breakfast. Branch metformin 2021-09 Yes 500mg Take 1 [facility] ER 500 mg 0-19 tablet by ity o f 24 hr 00:00: mouth [place] tablet 00 daily with Medical breakfast. Branch metformin 2021-09 Yes 500mg Take 1 [facility] ER 500 mg 0-19 tablet by ity o f 24 hr 00:00: mouth [place] tablet 00 daily with Medical breakfast. Branch metformin 2021-09 Yes 500mg Take 1 [facility] ER 500 mg 0-19 tablet by ity o f 24 hr 00:00: mouth [place] tablet 00 daily with Medical breakfast. Branch metformin 2021-09 Yes 500mg Take 1 [facility] ER 500 mg 0-19 tablet by ity o f 24 hr 00:00: mouth [place] tablet 00 daily with Medical breakfast. Branch metformin 2021-09 Yes 500mg Take 1 [facility] ER 500 mg 0-19 tablet by ity o f 24 hr 00:00: mouth [place] tablet 00 daily with Medical breakfast. Branch metformin 2021-09 Yes 500mg Take 1 [facility] ER 500 mg 0-19 tablet by ity o f 24 hr 00:00: mouth [place] tablet 00 daily with Medical breakfast. Branch metformin 2021-09 Yes 500mg Take 1 [facility] ER 500 mg 0-19 tablet by ity o f 24 hr 00:00: mouth [place] tablet 00 daily with Medical breakfast. Branch metformin 2021-09 Yes 500mg Take 1 [facility] ER 500 mg 0-19 tablet by ity o f 24 hr 00:00: mouth [place] tablet 00 daily with Medical breakfast. Branch metformin 2021-09 Yes 500mg Take 1 [facility] ER 500 mg 0-19 tablet by ity o f 24 hr 00:00: mouth [place] tablet 00 daily with Medical breakfast. Branch metformin 2021-09 Yes 500mg Take 1 [facility] ER 500 mg 0-19 tablet by ity o f 24 hr 00:00: mouth [place] tablet 00 daily with Medical breakfast. Branch metformin 2021-09 Yes 500mg Take 1 [facility] ER 500 mg 0-19 tablet by ity o f 24 hr 00:00: mouth [place] tablet 00 daily with Medical breakfast. Branch metformin 2021-09 Yes 500mg Take 1 [facility] ER 500 mg 0-19 tablet by ity o f 24 hr 00:00: mouth [place] tablet 00 daily with Medical breakfast. Branch metformin 2021-09 Yes 500mg Take 1 [facility] ER 500 mg 0-19 tablet by ity o f 24 hr 00:00: mouth [place] tablet 00 daily with Medical breakfast. Branch metformin 2021-09 Yes 500mg Take 1 [facility] ER 500 mg 0-19 tablet by ity o f 24 hr 00:00: mouth [place] tablet 00 daily with Medical breakfast. Branch metformin 2021-09 Yes 500mg Take 1 [facility] ER 500 mg 0-19 tablet by ity o f 24 hr 00:00: mouth [place] tablet 00 daily with Medical breakfast. Branch metformin 2021-09 Yes 500mg Take 1 [facility] rs ER 500 mg 0-19 tablet by ity o f 24 hr 00:00: mouth [place] tablet 00 daily with Medical breakfast. Branch lisinopriL 2021-0 Yes 5mg 5 mg, Univer s (PRINIVIL,Z 9- Oral, ity of ESTRIL) 14:00: DAILY, [place] tablet 5 mg 00 First dose Me dical (after Branch last modificati on) on Tue06/02/22 at 0900, Until Discontinu ed, Routine lisinopriL 2021-0 Yes 5mg 5 mg, [facility] (PRINIVIL,Z 9-21 Oral, ity of ESTRIL) 14:00: DAILY, [place] tablet 5 mg 00 First dose Me diccamilo (after Branch last modificati on) on Tue06/02/22 at 0900, Until Discontinu ed, Routine clopidogreL 2022-0 Yes 75mg Take 75 mg [facility] 75 mg 9-21 by mouth ity of tablet 00:00: in the [place] 00 morning. [facility] clopidogreL 2022-0 Yes 75mg Take 75 mg [facility] 75 mg 9-21 by mouth ity of tablet 00:00: in the [place] 00 morning. [facility] clopidogreL 2022-0 Yes 75mg Take 75 mg [facility] 75 mg 9-21 by mouth ity of tablet 00:00: in the [place] morning. [facility] clopidogreL 2022-0 Yes 75mg Take 75 mg [facility] 75 mg 9-21 by mouth ity of tablet 00:00: in the [place] morning. [facility] clopidogreL 2022-0 Yes 75mg Take 75 mg [facility] 75 mg 9-21 by mouth ity of tablet 00:00: in the [place] morning. [facility] clopidogreL 2022-0 Yes 75mg Take 75 mg [facility] 75 mg 9-21 by mouth ity of tablet 00:00: in the [place] 00 morning. [facility] clopidogreL 2022-0 Yes 75mg Take 75 mg [facility] 75 mg 9-21 by mouth ity of tablet 00:00: in the [place] 00 morning. [facility] clopidogreL 2022-0 Yes 75mg Take 75 mg [facility] 75 mg 9-21 by mouth ity of tablet 00:00: in the [place] 00 morning. [facility] clopidogreL 2022-0 Yes 75mg Take 75 mg [facility] 75 mg 9-21 by mouth ity of tablet 00:00: in the [place] 00 morning. [facility] clopidogreL 2022-0 Yes 75mg Take 75 mg [facility] 75 mg 9-21 by mouth ity of tablet 00:00: in the [place] 00 morning. [facility] clopidogreL 2022-0 Yes 75mg Take 75 mg [facility] 75 mg 9-21 by mouth ity of tablet 00:00: in the [place] 00 morning. [facility] clopidogreL 2022-0 Yes 75mg Take 75 mg [facility] 75 mg 9-21 by mouth ity of tablet 00:00: in the [place] 00 morning. [facility] clopidogreL 2022-0 Yes 75mg Take 75 mg [facility] 75 mg 9-21 by mouth ity of tablet 00:00: in the [place] 00 morning. [facility] clopidogreL 2022-0 Yes 75mg Take 75 mg [facility] 75 mg 9-21 by mouth ity of tablet 00:00: in the [place] 00 morning. [facility] clopidogreL 2022-0 Yes 75mg Take 75 mg [facility] 75 mg 9-21 by mouth ity of tablet 00:00: in the [place] 00 morning. [facility] clopidogreL 2022-0 Yes 75mg Take 75 mg [facility] 75 mg 9-21 by mouth ity of tablet 00:00: in the [place] 00 morning. [facility] clopidogreL 2022-0 Yes 75mg Take 75 mg [facility] 75 mg 9-21 by mouth ity of tablet 00:00: in the [place] 00 morning. [facility] clopidogreL 2022-0 Yes 75mg Take 75 mg [facility] 75 mg 9-21 by mouth ity of tablet 00:00: in the [place] 00 morning. [facility] clopidogreL 2022-0 Yes 75mg Take 75 mg [facility] 75 mg 9-21 by mouth ity of tablet 00:00: in the [place] 00 morning. [facility] clopidogreL 2022-0 Yes 75mg Take 75 mg [facility] 75 mg 9-21 by mouth ity of tablet 00:00: in the [place] 00 morning. [facility] clopidogreL 2022-0 Yes 75mg Take 75 mg [facility] 75 mg 9-21 by mouth ity of tablet 00:00: in the [place] 00 morning. [facility] clopidogreL 2022-0 Yes 75mg Take 75 mg [facility] 75 mg 9-21 by mouth ity of tablet 00:00: in the [place] 00 morning. [facility] clopidogreL 2022-0 Yes 75mg Take 75 mg [facility] 75 mg 9-21 by mouth ity of tablet 00:00: in the [place] 00 morning. [facility] clopidogreL 2022-0 Yes 75mg Take 75 mg [facility] 75 mg 9-21 by mouth ity of tablet 00:00: in the [place] 00 morning. [facility] clopidogreL 2022-0 Yes 75mg Take 75 mg [facility] 75 mg 9-21 by mouth ity of tablet 00:00: in the [place] 00 morning. [facility] clopidogreL 2022-0 Yes 75mg Take 75 mg [facility] 75 mg 9-21 by mouth ity of tablet 00:00: in the [place] 00 morning. [facility] clopidogreL 2022-0 Yes 75mg Take 75 mg [facility] 75 mg 9-21 by mouth ity of tablet 00:00: in the [place] 00 morning. [facility] clopidogreL 2022-0 Yes 75mg Take 75 mg [facility] 75 mg 9-21 by mouth ity of tablet 00:00: in the [place] 00 morning. [facility] clopidogreL 2022-0 Yes 75mg Take 75 mg [facility] 75 mg 9-21 by mouth ity of tablet 00:00: in the [place] 00 morning. [facility] clopidogreL 2022-0 Yes 75mg Take 75 mg [facility] 75 mg 9-21 by mouth ity of tablet 00:00: in the [place] 00 morning. [facility] clopidogreL 2022-0 Yes 75mg Take 75 mg [facility] 75 mg 9-21 by mouth ity of tablet 00:00: in the [place] 00 morning. [facility] clopidogreL 2022-0 Yes 75mg Take 75 mg [facility] 75 mg 9-21 by mouth ity of tablet 00:00: in the [place] 00 morning. [facility] clopidogreL 2022-0 Yes 75mg Take 75 mg [facility] 75 mg 9-21 by mouth ity of tablet 00:00: in the [place] 00 morning. [facility] clopidogreL 2022-0 Yes 75mg Take 75 mg [facility] 75 mg 9-21 by mouth ity of tablet 00:00: in the [place] 00 morning. [facility] clopidogreL 2022-0 Yes 75mg Take 75 mg [facility] 75 mg 9-21 by mouth ity of tablet 00:00: in the [place] 00 morning. [facility] clopidogreL 2022-0 Yes 75mg Take 75 mg [facility] 75 mg 9-21 by mouth ity of tablet 00:00: in the [place] 00 morning. [facility] clopidogreL 2022-0 Yes 75mg Take 75 mg [facility] 75 mg 9-21 by mouth ity of tablet 00:00: in the [place] 00 morning. [facility] clopidogreL 2022-0 Yes 75mg Take 75 mg [facility] 75 mg 9-21 by mouth ity of tablet 00:00: in the [place] 00 morning. [facility] clopidogreL 2022-0 Yes 75mg Take 75 mg [facility] 75 mg 9-21 by mouth ity of tablet 00:00: in the [place] 00 morning. [facility] clopidogreL 2022-0 Yes 75mg Take 75 mg [facility] 75 mg 9-21 by mouth ity of tablet 00:00: in the [place] 00 morning. [facility] clopidogreL 2022-0 Yes 75mg Take 75 mg [facility] 75 mg 9-21 by mouth ity of tablet 00:00: in the [place] 00 morning. [facility] clopidogreL 2022-0 Yes 75mg Take 75 mg [facility] 75 mg 9-21 by mouth ity of tablet 00:00: in the [place] 00 morning. [facility] clopidogreL 2022-0 Yes 75mg Take 75 mg [facility] 75 mg 9-21 by mouth ity of tablet 00:00: in the [place] 00 morning. [facility] clopidogreL 2022-0 Yes 75mg Take 75 mg [facility] 75 mg 9-21 by mouth ity of tablet 00:00: in the [place] 00 morning. [facility] clopidogreL 2022-0 Yes 75mg Take 75 mg [facility] 75 mg 9-21 by mouth ity of tablet 00:00: in the [place] 00 morning. [facility] clopidogreL 2022-0 Yes 75mg Take 75 mg [facility] 75 mg 9-21 by mouth ity of tablet 00:00: in the [place] 00 morning. [facility] clopidogreL 2022-0 Yes 75mg Take 75 mg [facility] 75 mg 9-21 by mouth ity of tablet 00:00: in the [place] 00 morning. [facility] clopidogreL 2022-0 Yes 75mg Take 75 mg [facility] 75 mg 9-21 by mouth ity of tablet 00:00: in the [place] 00 morning. [facility] clopidogreL 2022-0 Yes 75mg Take 75 mg [facility] 75 mg 9-21 by mouth ity of tablet 00:00: in the [place] 00 morning. [facility] clopidogreL 2022-0 Yes 75mg Take 75 mg [facility] 75 mg 9-21 by mouth ity of tablet 00:00: in the [place] 00 morning. [facility] clopidogreL 2022-0 Yes 75mg Take 75 mg [facility] 75 mg 9-21 by mouth ity of tablet 00:00: in the [place] 00 morning. [facility] clopidogreL 2022-0 Yes 75mg Take 75 mg [facility] 75 mg 9-21 by mouth ity of tablet 00:00: in the [place] 00 morning. [facility] clopidogreL 2022-0 Yes 75mg Take 75 mg [facility] 75 mg 9-21 by mouth ity of tablet 00:00: in the [place] 00 morning. [facility] clopidogreL 2022-0 Yes 75mg Take 75 mg [facility] 75 mg 9-21 by mouth ity of tablet 00:00: in the [place] 00 morning. [facility] clopidogreL 2022-0 Yes 75mg Take 75 mg [facility] 75 mg 9-21 by mouth ity of tablet 00:00: in the [place] 00 morning. [facility] clopidogreL 2022-0 Yes 75mg Take 75 mg [facility] 75 mg 9-21 by mouth ity of tablet 00:00: in the [place] 00 morning. [facility] clopidogreL 2022-0 Yes 75mg Take 75 mg [facility] 75 mg 9-21 by mouth ity of tablet 00:00: in the [place] 00 morning. [facility] clopidogreL 2022-0 Yes 75mg Take 75 mg [facility] 75 mg 9-21 by mouth ity of tablet 00:00: in the [place] 00 morning. [facility] clopidogreL 2022-0 Yes 75mg Take 75 mg [facility] 75 mg 9-21 by mouth ity of tablet 00:00: in the [place] 00 morning. [facility] clopidogreL 2022-0 Yes 75mg Take 75 mg [facility] 75 mg 9-21 by mouth ity of tablet 00:00: in the [place] 00 morning. [facility] clopidogreL 2022-0 Yes 75mg Take 75 mg [facility] 75 mg 9-21 by mouth ity of tablet 00:00: in the [place] 00 morning. [facility] clopidogreL 2022-0 Yes 75mg Take 75 mg [facility] 75 mg 9-21 by mouth ity of tablet 00:00: in the [place] 00 morning. [facility] lisinopriL 2022-0 2022- No [id number] 5mg Take 1 [facility] 5 mg tablet 9-21 12-21 tablet by it y of 00:00: 05:59 mouth in [place] 00 :00 the Medical morning Branch for 90 days. lisinopriL 2022-0 2022- No [id number] 5mg Take 1 [facility] 5 mg tablet 9-21 12-21 tablet by it y of 00:00: 05:59 mouth in [place] 00 :00 the Medical morning Branch for 90 days. lisinopriL 2022-0 2022- No [id number] 5mg Take 1 [facility] 5 mg tablet 9-21 12-21 tablet by it y of 00:00: 05:59 mouth in [place] 00 :00 the Medical morning Branch for 90 days. lisinopriL 2022-0 2022- No [id number] 5mg Take 1 [facility] 5 mg tablet 9-21 12-21 tablet by it y of 00:00: 05:59 mouth in [place] 00 :00 the Medical morning Branch for 90 days. lisinopriL 2022-0 2022- No [id number] 5mg Take 1 [facility] 5 mg tablet 9-21 12-21 tablet by it y of 00:00: 05:59 mouth in [place] 00 :00 the Medical morning Branch for 90 days. lisinopriL 2022-0 2022- No [id number] 5mg Take 1 [facility] 5 mg tablet 9-21 12-21 tablet by it y of 00:00: 05:59 mouth in [place] 00 :00 the Medical morning Branch for 90 days. lisinopriL 2022-0 2022- No [id number] 5mg Take 1 [facility] 5 mg tablet 9-21 12-21 tablet by it y of 00:00: 05:59 mouth in [place] 00 :00 the Medical morning Branch for 90 days. lisinopriL 2022-0 2022- No [id number] 5mg Take 1 [facility] 5 mg tablet 9-21 12-21 tablet by it y of 00:00: 05:59 mouth in [place] 00 :00 the Medical morning Branch for 90 days. lisinopriL 2022-0 2022- No [id number] 5mg Take 1 [facility] 5 mg tablet 9- 12-21 tablet by it y of 00:00: 05:59 mouth in [place] 00 :00 the Medical morning Branch for 90 days. lisinopriL 2022-0 2022- No [id number] 5mg Take 1 [facility] 5 mg tablet 9- 12-21 tablet by it y of 00:00: 05:59 mouth in [place] 00 :00 the Medical morning Branch for 90 days. lisinopriL 2022-0 2022- No [id number] 5mg Take 1 [facility] 5 mg tablet 9-21 12-21 tablet by it y of 00:00: 05:59 mouth in [place] 00 :00 the Medical morning Branch for 90 days. lisinopriL 2022-0 2022- No [id number] 5mg Take 1 [facility] 5 mg tablet 9-21 12-21 tablet by it y of 00:00: 05:59 mouth in [place] 00 :00 the Medical morning Branch for 90 days. lisinopriL 2022-0 2022- No [id number] 5mg Take 1 [facility] 5 mg tablet 9-21 12-21 tablet by it y of 00:00: 05:59 mouth in [place] 00 :00 the Medical morning Branch for 90 days. lisinopriL 2022-0 2022- No [id number] 5mg Take 1 [facility] 5 mg tablet 9-21 12-21 tablet by it y of 00:00: 05:59 mouth in [place] 00 :00 the Medical morning Branch for 90 days. lisinopriL 2022-0 2022- No [id number] 5mg Take 1 [facility] 5 mg tablet 9-21 12-21 tablet by it y of 00:00: 05:59 mouth in [place] 00 :00 the Medical morning Branch for 90 days. lisinopriL 2022-0 2022- No [id number] 5mg Take 1 [facility] 5 mg tablet 9-21 12-21 tablet by it y of 00:00: 05:59 mouth in [place] 00 :00 the Medical morning Branch for 90 days. lisinopriL 2022-0 2022- No [id number] 5mg Take 1 [facility] 5 mg tablet 9-21 12-21 tablet by it y of 00:00: 05:59 mouth in [place] 00 :00 the Medical morning Branch for 90 days. lisinopriL 2022-0 2022- No [id number] 5mg Take 1 [facility] 5 mg tablet 9-21 12-21 tablet by it y of 00:00: 05:59 mouth in [place] 00 :00 the Medical morning Branch for 90 days. lisinopriL 2022-0 2022- No [id number] 5mg Take 1 [facility] 5 mg tablet 9-21 12-21 tablet by it y of 00:00: 05:59 mouth in [place] 00 :00 the Medical morning Branch for 90 days. lisinopriL 2022-0 2022- No [id number] 5mg Take 1 [facility] 5 mg tablet 9- 12-21 tablet by it y of 00:00: 05:59 mouth in [place] 00 :00 the Medical morning Branch for 90 days. lisinopriL 2022-0 2022- No [id number] 5mg Take 1 [facility] 5 mg tablet 9-21 12-21 tablet by it y of 00:00: 05:59 mouth in [place] 00 :00 the Medical morning Branch for 90 days. lisinopriL 2022-0 2022- No [id number] 5mg Take 1 [facility] 5 mg tablet 9-21 12-21 tablet by it y of 00:00: 05:59 mouth in [place] 00 :00 the Medical morning Branch for 90 days. lisinopriL 2022-0 2022- No [id number] 5mg Take 1 [facility] 5 mg tablet 9-21 12-21 tablet by it y of 00:00: 05:59 mouth in [place] 00 :00 the Medical morning Branch for 90 days. lisinopriL 2022-0 2022- No [id number] 5mg Take 1 [facility] 5 mg tablet 9-21 12-21 tablet by it y of 00:00: 05:59 mouth in [place] 00 :00 the Medical morning Branch for 90 days. lisinopriL 2022-0 2022- No [id number] 5mg Take 1 [facility] 5 mg tablet 9- 12-21 tablet by it y of 00:00: 05:59 mouth in [place] 00 :00 the Medical morning Branch for 90 days. lisinopriL 2022-0 2022- No [id number] 5mg Take 1 [facility] 5 mg tablet 9- 12-21 tablet by it y of 00:00: 05:59 mouth in [place] 00 :00 the Medical morning Branch for 90 days. lisinopriL 2022-0 2022- No [id number] 5mg Take 1 [facility] 5 mg tablet 9- 12-21 tablet by it y of 00:00: 05:59 mouth in [place] 00 :00 the Medical morning Branch for 90 days. lisinopriL 2022-0 2022- No [id number] 5mg Take 1 [facility] 5 mg tablet 9-01 09-21 tablet by it y of 00:00: 05:59 mouth in [place] 00 :00 the Medical morning Branch for 90 days. lisinopriL 2022-0 2022- No [id number] 5mg Take 1 [facility] 5 mg tablet 9-01 09-21 tablet by it y of 00:00: 05:59 mouth in [place] 00 :00 the Medical morning Branch for 90 days. lisinopriL 2022-0 2022- No [id number] 5mg Take 1 [facility] 5 mg tablet 9- 12-21 tablet by it y of 00:00: 05:59 mouth in [place] 00 :00 the Medical morning Branch for 90 days. lisinopriL 2022-0 2022- No [id number] 5mg Take 1 [facility] 5 mg tablet 9- 12-21 tablet by it y of 00:00: 05:59 mouth in [place] 00 :00 the Medical morning Branch for 90 days. lisinopriL 2022-0 2022- No [id number] 5mg Take 1 [facility] 5 mg tablet 9- 12-21 tablet by it y of 00:00: 05:59 mouth in [place] 00 :00 the Medical morning Branch for 90 days. lisinopriL 2022-0 2022- No [id number] 5mg Take 1 [facility] 5 mg tablet 9-21 12-21 tablet by it y of 00:00: 05:59 mouth in [place] 00 :00 the Medical morning Branch for 90 days. lisinopriL 2022-0 2022- No [id number] 5mg Take 1 [facility] 5 mg tablet 9-21 12-21 tablet by it y of 00:00: 05:59 mouth in [place] 00 :00 the Medical morning Branch for 90 days. lisinopriL 2022-0 2022- No [id number] 5mg Take 1 [facility] 5 mg tablet 9-21 12-21 tablet by it y of 00:00: 05:59 mouth in [place] 00 :00 the Medical morning Branch for 90 days. lisinopriL 2022-0 2022- No [id number] 5mg Take 1 [facility] 5 mg tablet 9- 12-21 tablet by it y of 00:00: 05:59 mouth in [place] 00 :00 the Medical morning Branch for 90 days. lisinopriL 2022-0 2022- No [id number] 5mg Take 1 [facility] 5 mg tablet 9- 12-21 tablet by it y of 00:00: 05:59 mouth in [place] 00 :00 the Medical morning Branch for 90 days. lisinopriL 2022-0 2022- No [id number] 5mg Take 1 [facility] 5 mg tablet 9-01 09-21 tablet by it y of 00:00: 05:59 mouth in [place] 00 :00 the Medical morning Branch for 90 days. lisinopriL 2022-0 2022- No [id number] 5mg Take 1 [facility] 5 mg tablet 9- 12-21 tablet by it y of 00:00: 05:59 mouth in [place] 00 :00 the Medical morning Branch for 90 days. lisinopriL 2022-0 2022- No [id number] 5mg Take 1 [facility] 5 mg tablet 9- 12-21 tablet by it y of 00:00: 05:59 mouth in [place] 00 :00 the Medical morning Branch for 90 days. lisinopriL 2022-0 2022- No [id number] 5mg Take 1 [facility] 5 mg tablet 9-21 12-21 tablet by it y of 00:00: 05:59 mouth in [place] 00 :00 the Medical morning Branch for 90 days. lisinopriL 2022-0 2022- No [id number] 5mg Take 1 [facility] 5 mg tablet 9-21 12-21 tablet by it y of 00:00: 05:59 mouth in [place] 00 :00 the Medical morning Branch for 90 days. lisinopriL 2022-0 2022- No [id number] 5mg Take 1 [facility] 5 mg tablet 9-21 12-21 tablet by it y of 00:00: 05:59 mouth in [place] 00 :00 the Medical morning Branch for 90 days. lisinopriL 2022-0 2022- No [id number] 5mg Take 1 [facility] 5 mg tablet 9-21 12-21 tablet by it y of 00:00: 05:59 mouth in [place] 00 :00 the Medical morning Branch for 90 days. lisinopriL 2022-0 2022- No [id number] 5mg Take 1 [facility] 5 mg tablet 9-21 12-21 tablet by it y of 00:00: 05:59 mouth in [place] 00 :00 the Medical morning Branch for 90 days. lisinopriL 2022-0 2022- No [id number] 5mg Take 1 [facility] 5 mg tablet 9- 12-21 tablet by it y of 00:00: 05:59 mouth in [place] 00 :00 the Medical morning Branch for 90 days. lisinopriL 2022-0 2022- No [id number] 5mg Take 1 [facility] 5 mg tablet 9- 12-21 tablet by it y of 00:00: 05:59 mouth in [place] 00 :00 the Medical morning Branch for 90 days. lisinopriL 2022-0 2022- No [id number] 5mg Take 1 [facility] 5 mg tablet 9- 12-21 tablet by it y of 00:00: 05:59 mouth in [place] 00 :00 the Medical morning Branch for 90 days. lisinopriL 2022-0 2022- No [id number] 5mg Take 1 [facility] 5 mg tablet 9-21 12-21 tablet by it y of 00:00: 05:59 mouth in [place] 00 :00 the Medical morning Branch for 90 days. lisinopriL 2022-0 2022- No [id number] 5mg Take 1 [facility] 5 mg tablet 9-21 12-21 tablet by it y of 00:00: 05:59 mouth in [place] 00 :00 the Medical morning Branch for 90 days. lisinopriL 2022-0 2022- No [id number] 5mg Take 1 [facility] 5 mg tablet 9-21 12-21 tablet by it y of 00:00: 05:59 mouth in [place] 00 :00 the Medical morning Branch for 90 days. lisinopriL 2022-0 2022- No [id number] 5mg Take 1 [facility] 5 mg tablet 9-21 12-21 tablet by it y of 00:00: 05:59 mouth in [place] 00 :00 the Medical morning Branch for 90 days. lisinopriL 2022-0 2022- No [id number] 5mg Take 1 [facility] 5 mg tablet 9-21 12-21 tablet by it y of 00:00: 05:59 mouth in [place] 00 :00 the Medical morning Branch for 90 days. lisinopriL 2022-0 2022- No [id number] 5mg Take 1 [facility] 5 mg tablet 9- 12-21 tablet by it y of 00:00: 05:59 mouth in [place] 00 :00 the Medical morning Branch for 90 days. lisinopriL 2022-0 2022- No [id number] 5mg Take 1 [facility] 5 mg tablet 9- 12-21 tablet by it y of 00:00: 05:59 mouth in [place] 00 :00 the Medical morning Branch for 90 days. lisinopriL 2022-0 2022- No [id number] 5mg Take 1 [facility] 5 mg tablet 9- 12-21 tablet by it y of 00:00: 05:59 mouth in [place] 00 :00 the Medical morning Branch for 90 days. lisinopriL 2022-0 2022- No [id number] 5mg Take 1 [facility] 5 mg tablet 9- 12-21 tablet by it y of 00:00: 05:59 mouth in [place] 00 :00 the Medical morning Branch for 90 days. lisinopriL 2022-0 2022- No [id number] 5mg Take 1 [facility] 5 mg tablet 9-21 12-21 tablet by it y of 00:00: 05:59 mouth in [place] 00 :00 the Medical morning Branch for 90 days. lisinopriL 2022-0 2022- No [id number] 5mg Take 1 [facility] 5 mg tablet 9-21 12-21 tablet by it y of 00:00: 05:59 mouth in [place] 00 :00 the Medical morning Branch for 90 days. lisinopriL 2022-0 2022- No [id number] 5mg Take 1 [facility] 5 mg tablet 9-21 12-21 tablet by it y of 00:00: 05:59 mouth in [place] 00 :00 the Medical morning Branch for 90 days. lisinopriL 2022-0 2022- No [id number] 5mg Take 1 [facility] 5 mg tablet -01 09- tablet by it y of 00:00: 05:59 mouth in [place] 00 :00 the Medical morning Branch for 90 days. lisinopriL 2022-0 2022- No [id number] 5mg Take 1 [facility] 5 mg tablet -01 09- tablet by it y of 00:00: 05:59 mouth in [place] 00 :00 the Medical morning Branch for 90 days. lisinopriL 2022-0 2022- No [id number] 5mg Take 1 [facility] 5 mg tablet -01 09- tablet by it y of 00:00: 05:59 mouth in [place] 00 :00 the Medical morning Branch for 90 days. lisinopriL 2022-0 2022- No [id number] 5mg Take 1 [facility] 5 mg tablet -01 09- tablet by it y of 00:00: 05:59 mouth in [place] 00 :00 the Medical morning Branch for 90 days. lisinopriL 2022-0 2022- No [id number] 5mg Take 1 [facility] 5 mg tablet 06-02- tablet by it y of 00:00: 05:59 mouth in [place] 00 :00 the Medical morning Branch for 90 days. divalproex 2022-0 Yes 500mg Take 500 [facility] [facility] 9-20 mg by [facility] ([place] 16[place] 500 mg 18 bedtime. Medic al 24 hr Branch tablet divalproex 2022-0 Yes 500mg Take 500 [place] [facility] 9-20 mg by [facility] ([place] 16:[place] 500 mg 18 bedtime. Medic al 24 hr Branch tablet divalproex 2022-0 Yes 500mg Take 500 [place] 9-20 mg by [facility] ([place] 16:[place] 500 mg 18 bedtime. Medic al 24 hr Branch tablet divalproex 2022-0 Yes 500mg Take 500 [place] [facility] 9-20 mg by [facility] ([place] 16:[place] 500 mg 18 bedtime. Medic al 24 hr Branch tablet divalproex 2021-0 Yes 500mg Take 500 [place] [facility] 9-20 mg by [facility] ([place] 16:[place] 500 mg 18 bedtime. Medic al 24 hr Branch tablet lisinopriL 2021- No 2.5mg 2.5 mg, [facility] [place] (PRINIVIL,Z 06-01 Oral, ity of ESTRIL) 14:00: 16:20 DAILY, [place] tablet 2.5 00 :19 First dose Med ical mg on Tue06/01/22 at 0900, Until Discontinu ed, Routine carvediloL Yes 12.5mg 12.5 mg, U nivers (COREG) 9-20 Oral, BID ity [facility] tablet 12.5 13:00: [place] 00 First dose Medical (after Branch last modificati on) on Tue06/01/22 at 0800, Until Discontinu ed, Routine carvediloL Yes 12.5mg 12.5 mg, U n[facility] (COREG) 9- Oral, BID it[facility] tablet 12.5 13:00: [place] 00 First dose Medical (after last modificati on) on Tue06/01/22 at 0800, Until Discontinu ed, Routine Pantoprazol 2021- No 80mg Take 80 mg [facility] e 06-01 by mouth ity of (PROTONIX) 11:22[place] 33 :00 morning. Medical delayed-rel Branch ease suspension Pantoprazol 2021- No 80mg Take 80 mg [facility] e 06-01 by mouth ity of (PROTONIX) 11:22: [place] :00 morning. Medical delayed-rel Branch ease suspension divalproex Yes 500mg Take 500 [place] [facility] 9-20 mg by [facility] ([place] 11:22: [place] 500 mg 30 bedtime. Medic al 24 hr Branch tablet melatonin 2021- No 6mg 6 mg, Univer s (MELATIN) 06-01 Oral, ity of tablet 6 mg 05:55: 05:55 ONCE, 1 [place] 00 :[place] dose, On [facility] 06/01/22 at 0100, Routine atorvastati 2021-0 Yes 80mg 80 mg, Univ ers n (LIPITOR) 9-20 Oral, QHS, it y of tablet 80 02:00: First dose [place] mg 00 (after Medical last Branch modificati on) on [facility] 05/31/22 at 2100, Until Discontinu ed, Routine atorvastati 2021-0 Yes 80mg 80 mg, Univ ers n (LIPITOR) 9-20 Oral, QHS, it y of tablet 80 02:00: First dose [place] mg 00 (after Medical last Branch modificati on) on [facility] 05/31/22 at 2100, Until Discontinu ed, Routine ticagrelor 0 Yes 90mg 90 mg, Unive rs (BRILINTA) 9-20 Oral, BID, ity of tablet 90 01:00: First dose [place] mg 00 on [facility] 05/31/22 at [place] 1999, Until Discontinu ed, Routine, CV Recovery to Floor pantoprazol 0 Yes 40mg 40 mg, Univ ers e 9-20 Oral, BID, ity of (PROTONIX) 01:00: First [place] [facility] tablet 00 on [facility] 40 mg 05/31/22 at [place] 1999, Until Discontinu ed, Routine ticagrelor 0 Yes 90mg 90 mg, Un[facility] rs (BRILINTA) 9-20 Oral, BID, ity of tablet 90 01:00: First dose [place] mg 00 on [facility] 05/31/22 at [place] 1999, Until Discontinu ed, Routine, CV Recovery to Floor pantoprazol 2021-0 Yes 40mg 40 mg, Univ ers e 9-20 Oral, BID, ity of (PROTONIX) 01:00: First dose [place] tablet 00 on [facility] 40 mg 05/31/22 at [place] 1999, Until Discontinu ed, Routine aspirin 81 2021-0 2022- No [id number] 81mg Take 1 [facility] mg chewable 06-01 tablet by it y of tablet 00:00: 04:59 mouth [place] 00 :00 daily with Medical breakfast Branch for 360 days. atorvastati 2022- No [id number] 80mg Take 1 [facility] n 80 mg 9-20 -16 tablet by ity of tablet 00:00: 04:59 mouth at [place] 00 :00 bedtime Medical for 360 Branch days. aspirin 81 2022- No [id number] 81mg Take 1 [facility] mg chewable 9-20 -16 tablet by it y of tablet 00:00: 04:59 mouth [place] 00 :00 daily with Medical breakfast Branch for 360 days. atorvastati 2022- No [id number] 80mg Take 1 [facility] n 80 mg 9-20 -16 tablet by ity of tablet 00:00: 04:59 mouth at [place] 00 :00 bedtime Medical for 360 Branch days. aspirin 81 2022- No [id number] 81mg Take 1 [facility] mg chewable 9-20 -16 tablet by it y of tablet 00:00: 04:59 mouth [place] 00 :00 daily with Medical breakfast Branch for 360 days. atorvastati 2022- No [id number] 80mg Take 1 [facility] n 80 mg 9-20 -16 tablet by ity of tablet 00:00: 04:59 mouth at [place] 00 :00 bedtime Medical for 360 Branch days. aspirin 81 2022- No [id number] 81mg Take 1 [facility] mg chewable 9-20 -16 tablet by it y of tablet 00:00: 04:59 mouth [place] 00 :00 daily with Medical breakfast Branch for 360 days. atorvastati 2022- No [id number] 80mg Take 1 [facility] n 80 mg 9-20 -16 tablet by ity of tablet 00:00: 04:59 mouth at [place] 00 :00 bedtime Medical for 360 Branch days. aspirin 81 2022- No [id number] 81mg Take 1 [facility] mg chewable 9-20 -16 tablet by it y of tablet 00:00: 04:59 mouth [place] 00 :00 daily with Medical breakfast Branch for 360 days. atorvastati 2022- No [id number] 80mg Take 1 [facility] n 80 mg 9-20 -16 tablet by ity of tablet 00:00: 04:59 mouth at [place] 00 :00 bedtime Medical for 360 Branch days. aspirin 81 2022- No [id number] 81mg Take 1 [facility] mg chewable 9-20 -16 tablet by it y of tablet 00:00: 04:59 mouth [place] 00 :00 daily with Medical breakfast Branch for 360 days. atorvastati 2022- No [id number] 80mg Take 1 [facility] n 80 mg 9-01 06-16 tablet by ity of tablet 00:00: 04:59 mouth at [place] 00 :00 bedtime Medical for 360 Branch days. aspirin 81 2022- No [id number] 81mg Take 1 [facility] mg chewable 9-20 -16 tablet by it y of tablet 00:00: 04:59 mouth [place] 00 :00 daily with Medical breakfast Branch for 360 days. atorvastati 2022- No [id number] 80mg Take 1 [facility] n 80 mg 9-01 06-16 tablet by ity of tablet 00:00: 04:59 mouth at [place] 00 :00 bedtime Medical for 360 Branch days. aspirin 81 2022- No [id number] 81mg Take 1 [facility] mg chewable -01 06-16 tablet by it y of tablet 00:00: 04:59 mouth [place] 00 :00 daily with Medical breakfast Branch for 360 days. atorvastati 2022- No [id number] 80mg Take 1 [facility] n 80 mg -01 06-16 tablet by ity of tablet 00:00: 04:59 mouth at [place] 00 :00 bedtime Medical for 360 Branch days. aspirin 81 2022- No [id number] 81mg Take 1 [facility] mg chewable -01 06-16 tablet by it y of tablet 00:00: 04:59 mouth [place] 00 :00 daily with Medical breakfast Branch for 360 days. atorvastati 2022- No [id number] 80mg Take 1 [facility] n 80 mg 9-01 06-16 tablet by ity of tablet 00:00: 04:59 mouth at [place] 00 :00 bedtime Medical for 360 Branch days. aspirin 81 2022- No [id number] 81mg Take 1 [facility] mg chewable 9-20 -16 tablet by it y of tablet 00:00: 04:59 mouth [place] 00 :00 daily with Medical breakfast Branch for 360 days. atorvastati 2022- No [id number] 80mg Take 1 [facility] n 80 mg 9-20 -16 tablet by ity of tablet 00:00: 04:59 mouth at [place] 00 :00 bedtime Medical for 360 Branch days. aspirin 81 2022- No [id number] 81mg Take 1 [facility] mg chewable 9-20 -16 tablet by it y of tablet 00:00: 04:59 mouth [place] 00 :00 daily with Medical breakfast Branch for 360 days. atorvastati 2022- No [id number] 80mg Take 1 [facility] n 80 mg 9-20 -16 tablet by ity of tablet 00:00: 04:59 mouth at [place] 00 :00 bedtime Medical for 360 Branch days. aspirin 81 2022- No [id number] 81mg Take 1 [facility] mg chewable 9-20 -16 tablet by it y of tablet 00:00: 04:59 mouth [place] 00 :00 daily with Medical breakfast Branch for 360 days. atorvastati 2022- No [id number] 80mg Take 1 [facility] n 80 mg 9-20 -16 tablet by ity of tablet 00:00: 04:59 mouth at [place] 00 :00 bedtime Medical for 360 Branch days. aspirin 81 2022- No [id number] 81mg Take 1 [facility] mg chewable 9-20 -16 tablet by it y of tablet 00:00: 04:59 mouth [place] 00 :00 daily with Medical breakfast Branch for 360 days. atorvastati 2022- No [id number] 80mg Take 1 [facility] n 80 mg 9-20 -16 tablet by ity of tablet 00:00: 04:59 mouth at [place] 00 :00 bedtime Medical for 360 Branch days. aspirin 81 2022- No [id number] 81mg Take 1 [facility] mg chewable 9-20 -16 tablet by it y of tablet 00:00: 04:59 mouth [place] 00 :00 daily with Medical breakfast Branch for 360 days. atorvastati 2022- No [id number] 80mg Take 1 [facility] n 80 mg 9-20 -16 tablet by ity of tablet 00:00: 04:59 mouth at [place] 00 :00 bedtime Medical for 360 Branch days. aspirin 81 2022- No [id number] 81mg Take 1 [facility] mg chewable 9-20 -16 tablet by it y of tablet 00:00: 04:59 mouth [place] 00 :00 daily with Medical breakfast Branch for 360 days. atorvastati 2022- No [id number] 80mg Take 1 [facility] n 80 mg 9-20 -16 tablet by ity of tablet 00:00: 04:59 mouth at [place] 00 :00 bedtime Medical for 360 Branch days. aspirin 81 2022- No [id number] 81mg Take 1 [facility] mg chewable 9-20 -16 tablet by it y of tablet 00:00: 04:59 mouth [place] 00 :00 daily with Medical breakfast Branch for 360 days. atorvastati 2022- No [id number] 80mg Take 1 [facility] n 80 mg 9-20 -16 tablet by ity of tablet 00:00: 04:59 mouth at [place] 00 :00 bedtime Medical for 360 Branch days. aspirin 81 2022- No [id number] 81mg Take 1 [facility] mg chewable 9-20 -16 tablet by it y of tablet 00:00: 04:59 mouth [place] 00 :00 daily with Medical breakfast Branch for 360 days. atorvastati 2022- No [id number] 80mg Take 1 [facility] n 80 mg 9-20 -16 tablet by ity of tablet 00:00: 04:59 mouth at [place] 00 :00 bedtime Medical for 360 Branch days. aspirin 81 2022- No [id number] 81mg Take 1 [facility] mg chewable 9-20 -16 tablet by it y of tablet 00:00: 04:59 mouth [place] 00 :00 daily with Medical breakfast Branch for 360 days. atorvastati 2022- No [id number] 80mg Take 1 [facility] n 80 mg 9-20 -16 tablet by ity of tablet 00:00: 04:59 mouth at [place] 00 :00 bedtime Medical for 360 Branch days. aspirin 81 2022- No [id number] 81mg Take 1 [facility] mg chewable 9-20 -16 tablet by it y of tablet 00:00: 04:59 mouth [place] 00 :00 daily with Medical breakfast Branch for 360 days. atorvastati 2022- No [id number] 80mg Take 1 [facility] n 80 mg 9-20 -16 tablet by ity of tablet 00:00: 04:59 mouth at [place] 00 :00 bedtime Medical for 360 Branch days. aspirin 81 2022- No [id number] 81mg Take 1 [facility] mg chewable 9-20 09-16 tablet by it y of tablet 00:00: 04:59 mouth [place] 00 :00 daily with Medical breakfast Branch for 360 days. atorvastati 2022- No [id number] 80mg Take 1 [facility] n 80 mg 9-20 -16 tablet by ity of tablet 00:00: 04:59 mouth at [place] 00 :00 bedtime Medical for 360 Branch days. aspirin 81 2022- No [id number] 81mg Take 1 [facility] mg chewable 9-20 -16 tablet by it y of tablet 00:00: 04:59 mouth [place] 00 :00 daily with Medical breakfast Branch for 360 days. atorvastati 2022- No [id number] 80mg Take 1 [facility] n 80 mg 9-20 -16 tablet by ity of tablet 00:00: 04:59 mouth at [place] 00 :00 bedtime Medical for 360 Branch days. aspirin 81 2022- No [id number] 81mg Take 1 [facility] mg chewable 9-20 -16 tablet by it y of tablet 00:00: 04:59 mouth [place] 00 :00 daily with Medical breakfast Branch for 360 days. atorvastati 2022- No [id number] 80mg Take 1 [facility] n 80 mg 9-20 -16 tablet by ity of tablet 00:00: 04:59 mouth at [place] 00 :00 bedtime Medical for 360 Branch days. aspirin 81 2022- No [id number] 81mg Take 1 [facility] mg chewable 9-20 -16 tablet by it y of tablet 00:00: 04:59 mouth [place] 00 :00 daily with Medical breakfast Branch for 360 days. atorvastati 2022- No [id number] 80mg Take 1 [facility] n 80 mg 9-20 09-16 tablet by ity of tablet 00:00: 04:59 mouth at [place] 00 :00 bedtime Medical for 360 Branch days. aspirin 81 2022- No [id number] 81mg Take 1 [facility] mg chewable 9-20 09-16 tablet by it y of tablet 00:00: 04:59 mouth [place] 00 :00 daily with Medical breakfast Branch for 360 days. atorvastati 2021-2022- No [id number] 80mg Take 1 [facility] n 80 mg 9-20 -16 tablet by ity of tablet 00:00: 04:59 mouth at [place] 00 :00 bedtime Medical for 360 Branch days. aspirin 81 2022- No [id number] 81mg Take 1 [facility] mg chewable 9-20 -16 tablet by it y of tablet 00:00: 04:59 mouth [place] 00 :00 daily with Medical breakfast Branch for 360 days. atorvastati 2022- No [id number] 80mg Take 1 [facility] n 80 mg 9-20 -16 tablet by ity of tablet 00:00: 04:59 mouth at [place] 00 :00 bedtime Medical for 360 Branch days. aspirin 81 2022- No [id number] 81mg Take 1 [facility] mg chewable 9-20 -16 tablet by it y of tablet 00:00: 04:59 mouth [place] 00 :00 daily with Medical breakfast Branch for 360 days. atorvastati 2022- No [id number] 80mg Take 1 [facility] n 80 mg 9-20 -16 tablet by ity of tablet 00:00: 04:59 mouth at [place] 00 :00 bedtime Medical for 360 Branch days. ticagrelor 2022- No [id number] 90mg Take 1 [facility] 90 mg 9-01 06-16 tablet by ity of tablet 00:00: 04:59 mouth in [place] 00 :00 the Medical morning Branch and 1 tablet in the evening. Do all this for 360 days. aspirin 81 2022- No [id number] 81mg Take 1 [facility] mg chewable 9-20 -16 tablet by it y of tablet 00:00: 04:59 mouth [place] 00 :00 daily with Medical breakfast Branch for 360 days. atorvastati 3- No [id number] 80mg Take 1 [facility] n 80 mg 9-20 -16 tablet by ity of tablet 00:00: 04:59 mouth at [place] 00 :00 bedtime Medical for 360 Branch days. ticagrelor 2021-3- No [id number] 90mg Take 1 [facility] 90 mg 9-20 09-16 tablet by ity of tablet 00:00: 04:59 mouth in [place] 00 :00 the Medical morning Branch and 1 tablet in the evening. Do all this for 360 days. aspirin 81 2021-3- No [id number] 81mg Take 1 [facility] mg chewable 9-20 09-16 tablet by it y of tablet 00:00: 04:59 mouth [place] 00 :00 daily with Medical breakfast Branch for 360 days. atorvastati 2021-3- No [id number] 80mg Take 1 [facility] n 80 mg 9-20 09-16 tablet by ity of tablet 00:00: 04:59 mouth at [place] 00 :00 bedtime Medical for 360 Branch days. ticagrelor 2021-0 3- No [id number] 90mg Take 1 [facility] 90 mg 9-20 09-16 tablet by ity of tablet 00:00: 04:59 mouth in [place] 00 :00 the Medical morning Branch and 1 tablet in the evening. Do all this for 360 days. aspirin 81 3- No [id number] 81mg Take 1 [facility] mg chewable 9-20 09-16 tablet by it y of tablet 00:00: 04:59 mouth [place] 00 :00 daily with Medical breakfast [place] for 360 days. atorvastati 2021-3- No [id number] 80mg Take 1 [facility] n 80 mg 9-20 09-16 tablet by ity of tablet 00:00: 04:59 mouth at [place] 00 :00 bedtime Medical for 360 Branch days. ticagrelor 2021-3- No [id number] 90mg Take 1 [facility] 90 mg 9-20 09-16 tablet by ity of tablet 00:00: 04:59 mouth in [place] 00 :00 the Medical morning Branch and 1 tablet in the evening. Do all this for 360 days. aspirin 81 2021-3- No [id number] 81mg Take 1 [facility] mg chewable 9-20 09-16 tablet by it y of tablet 00:00: 04:59 mouth [place] 00 :00 daily with Medical breakfast [place] for 360 days. atorvastati 2021-0 3- No [id number] 80mg Take 1 [facility] n 80 mg 9-20 09-16 tablet by ity of tablet 00:00: 04:59 mouth at [place] 00 :00 bedtime Medical for 360 Branch days. ticagrelor 2021-2022- No [id number] 90mg Take 1 [facility] 90 mg 9-20 09-16 tablet by ity of tablet 00:00: 04:59 mouth in [place] 00 :00 the Medical morning Branch and 1 tablet in the evening. Do all this for 360 days. aspirin 81 2022- No [id number] 81mg Take 1 [facility] mg chewable 9-20 09-16 tablet by it y of tablet 00:00: 04:59 mouth [place] 00 :00 daily with Medical breakfast Branch for 360 days. atorvastati 2022- No [id number] 80mg Take 1 [facility] n 80 mg 9-20 09-16 tablet by ity of tablet 00:00: 04:59 mouth at [place] 00 :00 bedtime Medical for 360 Branch days. ticagrelor 2022- No [id number] 90mg Take 1 [facility] 90 mg 9-20 09-16 tablet by ity of tablet 00:00: 04:59 mouth in [place] 00 :00 the Medical morning Branch and 1 tablet in the evening. Do all this for 360 days. aspirin 81 2022- No [id number] 81mg Take 1 [facility] mg chewable 9-20 09-16 tablet by it y of tablet 00:00: 04:59 mouth [place] 00 :00 daily with Medical breakfast Branch for 360 days. atorvastati 3- No [id number] 80mg Take 1 [facility] n 80 mg 9-20 09-16 tablet by ity of tablet 00:00: 04:59 mouth at [place] 00 :00 bedtime Medical for 360 Branch days. aspirin 81 3- No [id number] 81mg Take 1 [facility] mg chewable 9-20 09-16 tablet by it y of tablet 00:00: 04:59 mouth [place] 00 :00 daily with Medical breakfast Branch for 360 days. atorvastati 2021-3- No [id number] 80mg Take 1 [facility] n 80 mg 9-20 09-16 tablet by ity of tablet 00:00: 04:59 mouth at [place] 00 :00 bedtime Medical for 360 Branch days. aspirin 81 2021-3- No [id number] 81mg Take 1 [facility] mg chewable 9-20 09-16 tablet by it y of tablet 00:00: 04:59 mouth [place] 00 :00 daily with Medical breakfast Branch for 360 days. atorvastati 2022- No [id number] 80mg Take 1 [facility] n 80 mg 9-20 09-16 tablet by ity of tablet 00:00: 04:59 mouth at [place] 00 :00 bedtime Medical for 360 Branch days. aspirin 81 2022- No [id number] 81mg Take 1 [facility] mg chewable 9-20 09-16 tablet by it y of tablet 00:00: 04:59 mouth [place] 00 :00 daily with Medical breakfast Branch for 360 days. atorvastati 2022- No [id number] 80mg Take 1 [facility] n 80 mg 9-20 09-16 tablet by ity of tablet 00:00: 04:59 mouth at [place] 00 :00 bedtime Medical for 360 Branch days. aspirin 81 2022- No [id number] 81mg Take 1 [facility] mg chewable 9-20 09-16 tablet by it y of tablet 00:00: 04:59 mouth [place] 00 :00 daily with Medical breakfast [place] for 360 days. atorvastati 2022- No [id number] 80mg Take 1 [facility] n 80 mg 9-20 -16 tablet by ity of tablet 00:00: 04:59 mouth at [place] 00 :00 bedtime Medical for 360 Branch days. aspirin 81 2022- No [id number] 81mg Take 1 [facility] mg chewable 9-20 09-16 tablet by it y of tablet 00:00: 04:59 mouth [place] 00 :00 daily with Medical breakfast [place] for 360 days. atorvastati 2022- No [id number] 80mg Take 1 [facility] n 80 mg 9-20 09-16 tablet by ity of tablet 00:00: 04:59 mouth at [place] 00 :00 bedtime Medical for 360 Branch days. aspirin 81 3- No [id number] 81mg Take 1 [facility] mg chewable 9-20 09-16 tablet by it y of tablet 00:00: 04:59 mouth [place] 00 :00 daily with Medical breakfast [place] for 360 days. atorvastati 3- No [id number] 80mg Take 1 [facility] n 80 mg 9-20 09-16 tablet by ity of tablet 00:00: 04:59 mouth at [place] 00 :00 bedtime Medical for 360 Branch days. aspirin 81 2022- No [id number] 81mg Take 1 [facility] mg chewable 9-20 09-16 tablet by it y of tablet 00:00: 04:59 mouth [place] 00 :00 daily with Medical breakfast Branch for 360 days. atorvastati 2022- No [id number] 80mg Take 1 [facility] n 80 mg 9-20 -16 tablet by ity of tablet 00:00: 04:59 mouth at [place] 00 :00 bedtime Medical for 360 Branch days. aspirin 81 2022- No [id number] 81mg Take 1 [facility] mg chewable 9-20 -16 tablet by it y of tablet 00:00: 04:59 mouth [place] 00 :00 daily with Medical breakfast Branch for 360 days. atorvastati 2022- No [id number] 80mg Take 1 [facility] n 80 mg 9-20 -16 tablet by ity of tablet 00:00: 04:59 mouth at [place] 00 :00 bedtime Medical for 360 Branch days. aspirin 81 2022- No [id number] 81mg Take 1 [facility] mg chewable 9-20 -16 tablet by it y of tablet 00:00: 04:59 mouth [place] 00 :00 daily with Medical breakfast Branch for 360 days. atorvastati 2022- No [id number] 80mg Take 1 [facility] n 80 mg 9-20 -16 tablet by ity of tablet 00:00: 04:59 mouth at [place] 00 :00 bedtime Medical for 360 Branch days. aspirin 81 3- No [id number] 81mg Take 1 [facility] mg chewable 9-20 -16 tablet by [facility] y of tablet 00:00: 04:59 mouth [place] 00 :00 daily with Medical breakfast Branch for 360 days. atorvastati 3- No [id number] 80mg Take 1 [facility] 80 mg 9-20 -16 tablet by [facility] tablet 00:00: 04:59 mouth at [place] 00 :00 bedtime Medical for 360 Branch days. aspirin 81 2022- No [id number] 81mg Take 1 [facility] chewable 9-20 -16 tablet by it y of tablet 00:00: 04:59 mouth [place] 00 :00 daily with Medical breakfast Branch for 360 days. atorvastati 2022- No [id number] 80mg Take 1 [facility] n 80 mg 9-20 -16 tablet by [facility] of tablet 00:00: 04:59 mouth at [place] 00 :00 bedtime Medical for 360 Branch days. aspirin 81 2022- No [id number] 81mg Take 1 [facility] mg chewable 9-20 -16 tablet by it y of tablet 00:00: 04:59 mouth [place] 00 :00 [facility]. atorvastati 2022- No [id number] 80mg Take 1 [facility] n 80 mg 9-20 -16 tablet by [facility] of tablet 00:00: 04:59 mouth at [place] 00 :00 bedtime Medical for 360 Branch days. aspirin 81 2022- No [id number] 81mg Take 1 [facility] mg chewable 9-20 -16 tablet by it y of tablet 00:00: 04:59 mouth [place] 00 :00 [facility] with [facility] for 360 days. atorvastati 2022- No [id number] 80mg Take 1 [facility] n 80 mg 9-20 -16 tablet by ity of tablet 00:00: 04:59 mouth at [place] 00 :00 bedtime Medical for 360 Branch days. aspirin 81 2022- No [id number] 81mg Take 1 [facility] mg chewable 9-20 -16 tablet by it y of tablet 00:00: 04:59 mouth [place] 00 :00 daily with [facility] for 360 days. atorvastati 2022- No [id number] 80mg Take 1 [facility] n 80 mg 9-20 -16 tablet by ity of tablet 00:00: 04:59 mouth at [place] 00 :00 bedtime Medical for 360 Branch days. aspirin 81 3- No [id number] 81mg Take 1 [facility] mg chewable 9-20 -16 tablet by it y of tablet 00:00: 04:59 mouth [place] 00 :00 daily with Medical breakfast [place] for 360 days. atorvastati 2022- No [id number] 80mg Take 1 [facility] n 80 mg 9-20 -16 tablet by [facility]y of tablet 00:00: 04:59 mouth at [place] 00 :00 bedtime Medical for 360 Branch days. aspirin 81 2022- No [id number] 81mg Take 1 [facility] mg chewable 9-20 -16 tablet by it y of tablet 00:00: 04:59 mouth [place] 00 :00 daily with Medical breakfast Branch for 360 days. atorvastati 2022- No [id number] 80mg Take 1 [facility] n 80 mg 9-20 -16 tablet by [facility] of tablet 00:00: 04:59 mouth at [place] 00 :00 bedtime Medical for 360 Branch days. aspirin 81 2022- No [id number] 81mg Take 1 [facility] mg chewable 9-20 -16 tablet by it [facility] of tablet 00:00: 04:59 mouth [place] 00 :00 daily with Medical breakfast Branch for 360 days. atorvastati 2022- No [id number] 80mg Take 1 [facility] n 80 mg 9-20 -16 tablet by [facility] of tablet 00:00: 04:59 mouth at [place] 00 :00 bedtime Medical for 360 Branch days. aspirin 81 2022- No [id number] 81mg Take 1 [facility] mg chewable 9-20 -16 tablet by [facility] y of tablet 00:00: 04:59 mouth [place] 00 :00 daily with Medical breakfast Branch for 360 days. atorvastati 2022- No [id number] 80mg Take 1 [facility] n 80 mg 9-20 -16 tablet by [facility] of tablet 00:00: 04:59 mouth at [place] 00 :00 bedtime Medical for 360 Branch days. aspirin 81 2022- No [id number] 81mg Take 1 [facility] mg chewable 9-20 -16 tablet by [facility] of tablet 00:00: 04:59 mouth [place] 00 :00 daily with Medical breakfast Branch for 360 days. atorvastati 2022- No [id number] 80mg Take 1 [facility] n 80 mg 9-20 -16 tablet by [facility] of tablet 00:00: 04:59 mouth at [place] 00 :00 bedtime Medical for 360 Branch days. aspirin 81 2022- No [id number] 81mg Take 1 [facility] mg chewable 9-20 -16 tablet by it y of tablet 00:00: 04:59 mouth [place] 00 :00 daily with Medical breakfast Branch for 360 days. atorvastati 2022- No [id number] 80mg Take 1 [facility] n 80 mg 9-20 -16 tablet by [facility] of tablet 00:00: 04:59 mouth at [place] 00 :00 bedtime Medical for 360 Branch days. aspirin 81 2022- No [id number] 81mg Take 1 [facility] mg chewable 9-20 -16 tablet by it y of tablet 00:00: 04:59 mouth [place] 00 :00 daily with Medical breakfast Branch for 360 days. atorvastati 2022- No [id number] 80mg Take 1 [facility] n 80 mg 9-20 -16 tablet by [facility] of tablet 00:00: 04:59 mouth at [place] 00 :00 bedtime Medical for 360 Branch days. aspirin 81 2022- No [id number] 81mg Take 1 [facility] mg chewable 9-20 -16 tablet by it [facility] of tablet 00:00: 04:59 mouth [place] 00 :00 daily with Medical breakfast Branch for 360 days. atorvastati 2022- No [id number] 80mg Take 1 [facility] n 80 mg 9-20 -16 tablet by ity of tablet 00:00: 04:59 mouth at [place] 00 :00 bedtime Medical for 360 Branch days. aspirin 81 2022- No [id number] 81mg Take 1 [facility] mg chewable 9-20 -16 tablet by it [facility] of tablet 00:00: 04:59 mouth [place] 00 :00 daily with Medical breakfast Branch for 360 days. atorvastati 2022- No [id number] 80mg Take 1 [facility] n 80 mg 9-20 -16 tablet by [facility] of tablet 00:00: 04:59 mouth at [place] 00 :00 bedtime Medical for 360 Branch days. aspirin 81 2022- No [id number] 81mg Take 1 [facility] mg chewable 9-20 -16 tablet by it y of tablet 00:00: 04:59 mouth [place] 00 :00 daily with Medical breakfast Branch for 360 days. atorvastati 2022- No [id number] 80mg Take 1 [facility] n 80 mg 9-20 -16 tablet by [facility] of tablet 00:00: 04:59 mouth at [place] 00 :00 bedtime Medical for 360 Branch days. aspirin 81 2022- No [id number] 81mg Take 1 [facility] mg chewable 9-20 -16 tablet by it y of tablet 00:00: 04:59 mouth [place] 00 :00 daily with Medical breakfast Branch for 360 days. atorvastati 2022- No [id number] 80mg Take 1 [facility] n 80 mg 9-01 06-16 tablet by ity of tablet 00:00: 04:59 mouth at [place] 00 :00 bedtime Medical for 360 Branch days. aspirin 81 2022- No [id number] 81mg Take 1 [facility] mg chewable 9-20 -16 tablet by it y of tablet 00:00: 04:59 mouth [place] 00 :00 daily with Medical breakfast Branch for 360 days. atorvastati 2022- No [id number] 80mg Take 1 [facility] n 80 mg 9-01 06-16 tablet by ity of tablet 00:00: 04:59 mouth at [place] 00 :00 bedtime Medical for 360 Branch days. aspirin 81 2022- No [id number] 81mg Take 1 [facility] mg chewable -01 06-16 tablet by it y of tablet 00:00: 04:59 mouth [place] 00 :00 daily with Medical breakfast Branch for 360 days. atorvastati 2022- No [id number] 80mg Take 1 [facility] n 80 mg -01 06-16 tablet by ity of tablet 00:00: 04:59 mouth at [place] 00 :00 bedtime Medical for 360 Branch days. aspirin 81 2022- No [id number] 81mg Take 1 [facility] mg chewable -01 06-16 tablet by it y of tablet 00:00: 04:59 mouth [place] 00 :00 daily with Medical breakfast Branch for 360 days. atorvastati 2022- No [id number] 80mg Take 1 [facility] n 80 mg 9-01 06-16 tablet by ity of tablet 00:00: 04:59 mouth at [place] 00 :00 bedtime Medical for 360 Branch days. aspirin 81 2022- No [id number] 81mg Take 1 [facility] mg chewable 9-20 -16 tablet by it y of tablet 00:00: 04:59 mouth [place] 00 :00 daily with Medical breakfast Branch for 360 days. atorvastati 2022- No [id number] 80mg Take 1 [facility] n 80 mg 9-20 -16 tablet by ity of tablet 00:00: 04:59 mouth at [place] 00 :00 bedtime Medical for 360 Branch days. aspirin 81 2022- No [id number] 81mg Take 1 [facility] mg chewable 9-20 -16 tablet by it y of tablet 00:00: 04:59 mouth [place] 00 :00 daily with Medical breakfast Branch for 360 days. atorvastati 2022- No [id number] 80mg Take 1 [facility] n 80 mg 9-20 -16 tablet by ity of tablet 00:00: 04:59 mouth at [place] 00 :00 bedtime Medical for 360 Branch days. aspirin 81 2022- No [id number] 81mg Take 1 [facility] mg chewable 9-20 -16 tablet by it y of tablet 00:00: 04:59 mouth [place] 00 :00 daily with Medical breakfast Branch for 360 days. atorvastati 2022- No [id number] 80mg Take 1 [facility] n 80 mg 9-20 -16 tablet by ity of tablet 00:00: 04:59 mouth at [place] 00 :00 bedtime Medical for 360 Branch days. aspirin 81 2022- No [id number] 81mg Take 1 [facility] mg chewable 9-20 -16 tablet by it y of tablet 00:00: 04:59 mouth [place] 00 :00 daily with Medical breakfast Branch for 360 days. atorvastati 2022- No [id number] 80mg Take 1 [facility] n 80 mg 9-20 -16 tablet by ity of tablet 00:00: 04:59 mouth at [place] 00 :00 bedtime Medical for 360 Branch days. aspirin 81 2022- No [id number] 81mg Take 1 [facility] mg chewable 9-20 -16 tablet by it y of tablet 00:00: 04:59 mouth [place] 00 :00 daily with Medical breakfast Branch for 360 days. atorvastati 2022- No [id number] 80mg Take 1 [facility] n 80 mg 9-20 -16 tablet by ity of tablet 00:00: 04:59 mouth at [place] 00 :00 bedtime Medical for 360 Branch days. aspirin 81 2022- No [id number] 81mg Take 1 [facility] mg chewable 9-20 -16 tablet by it y of tablet 00:00: 04:59 mouth [place] 00 :00 daily with Medical breakfast [place] for 360 days. atorvastati 2022- No [id number] 80mg Take 1 [facility] n 80 mg 9-20 -16 tablet by ity of tablet 00:00: 04:59 mouth at [place] 00 :00 bedtime Medical for 360 Branch days. aspirin 81 2022- No [id number] 81mg Take 1 [facility] mg chewable 9-20 -16 tablet by it y of tablet 00:00: 04:59 mouth [place] 00 :00 daily with [facility] breakfast [place] for 360 days. atorvastati 2022- No [id number] 80mg Take 1 [facility] n 80 mg 9-20 -16 tablet by ity of tablet 00:00: 04:59 mouth at [place] 00 :00 bedtime Medical for 360 Branch days. aspirin 81 2022- No [id number] 81mg Take 1 [facility] mg chewable 9-20 -16 tablet by it y of tablet 00:00: 04:59 mouth [place] 00 :00 daily with [facility] for 360 days. atorvastati 2022- No [id number] 80mg Take 1 [facility] n 80 mg 9-20 -16 tablet by ity of tablet 00:00: 04:59 mouth at [place] 00 :00 bedtime Medical for 360 Branch days. pantoprazol 2021- No [id number] 40mg Take 1 [facility] e 40 mg EC 9-20 12-20 tablet by ity of tablet 00:00: 05:59 mouth in [place] 00 :00 the Medical morning Branch and 1 tablet in the evening. Do all this for 90 days. carvediloL 2021- No [id number] 12.5mg Take 1 [facility] 12.5 mg 9-20 12-20 tablet by ity of tablet 00:00: 05:59 mouth in [place] 00 :00 the Medical morning Branch and 1 tablet in the evening. Take with meals. Do all this for 90 days. pantoprazol 2021- No [id number] 40mg Take 1 [facility] e 40 mg EC 9-20 12-20 tablet by ity of tablet 00:00: 05:59 mouth in [place] 00 :00 the Medical morning Branch and 1 tablet in the evening. Do all this for 90 days. carvediloL 2021-0 2- No [id number] 12.5mg Take 1 [facility] 12.5 mg 9-20 12-20 tablet by ity of tablet 00:00: 05:59 mouth in [place] 00 :00 the [facility] and 1 tablet in the evening. Take with meals. Do all this for 90 days. pantoprazol 2021-2021- No [id number] 40mg Take 1 [facility] e 40 mg EC 9-20 12-20 tablet by ity of tablet 00:00: 05:59 mouth in [place] 00 :00 the [facility] and 1 tablet in the evening. Do all this for 90 days. carvediloL 2021-2021- No [id number] 12.5mg Take 1 [facility] 12.5 mg 9-20 12-20 tablet by ity of tablet 00:00: 05:59 mouth in [place] 00 :00 the [facility] and 1 tablet in the evening. Take with meals. Do all this for 90 days. pantoprazol 2021-2021- No [id number] 40mg Take 1 [facility] e 40 mg EC 9-20 12-20 tablet by ity of tablet 00:00: 05:59 mouth in [place] 00 :00 the [facility] and 1 tablet in the evening. Do all this for 90 days. carvediloL 2021-0 2021- No [id number] 12.5mg Take 1 [facility] 12.5 mg 9-20 12-20 tablet by ity of tablet 00:00: 05:59 mouth in [place] 00 :00 the [facility] and 1 tablet in the evening. Take with meals. Do all this for 90 days. pantoprazol 2021-0 2021- No [id number] 40mg Take 1 [facility] e 40 mg EC 9-20 12-20 tablet by ity of tablet 00:00: 05:59 mouth in [place] 00 :00 the [facility] and 1 tablet in the evening. Do all this for 90 days. carvediloL 2021-0 2- No [id number] 12.5mg Take 1 [facility] 12.5 mg 9-20 12-20 tablet by ity of tablet 00:00: 05:59 mouth in [place] 00 :00 the [facility] and 1 tablet in the evening. Take with meals. Do all this for 90 days. pantoprazol 2021-0 2- No [id number] 40mg Take 1 [facility] e 40 mg EC 9-20 12-20 tablet by ity of tablet 00:00: 05:59 mouth in [place] 00 :00 the [facility] morning [place] and 1 tablet in the evening. Do all this for 90 days. carvediloL 2021-0 2- No [id number] 12.5mg Take 1 [facility] 12.5 mg 9-20 12-20 tablet by ity of tablet 00:00: 05:59 mouth in [place] 00 :00 the [facility] and 1 tablet in the evening. Take with meals. Do all this for 90 days. pantoprazol 2021-0 2021- No [id number] 40mg Take 1 [facility] e 40 mg EC 9-20 12-20 tablet by ity of tablet 00:00: 05:59 mouth in [place] 00 :00 the [facility] and 1 tablet in the evening. Do all this for 90 days. carvediloL 2021-0 2021- No [id number] 12.5mg Take 1 [facility] 12.5 mg 9-20 12-20 tablet by ity of tablet 00:00: 05:59 mouth in [place] 00 :00 the [facility] and 1 tablet in the evening. Take with meals. Do all this for 90 days. pantoprazol 2021-0 2- No [id number] 40mg Take 1 [facility] e 40 mg EC 9-20 12-20 tablet by ity of tablet 00:00: 05:59 mouth in [place] 00 :00 the [facility] and 1 tablet in the evening. Do all this for 90 days. carvediloL 2021-0 2- No [id number] 12.5mg Take 1 [facility] 12.5 mg 9-20 12-20 tablet by ity of tablet 00:00: 05:59 mouth in [place] 00 :00 the [facility] and 1 tablet in the evening. Take with meals. Do all this for 90 days. pantoprazol 2-0 2- No [id number] 40mg Take 1 [facility] e 40 mg EC 9-20 12-20 tablet by ity of tablet 00:00: 05:59 mouth in [place] 00 :00 the [facility] and 1 tablet in the evening. Do all this for 90 days. carvediloL 2021-0 2022- No [id number] 12.5mg Take 1 [facility] 12.5 mg 9-20 12-20 tablet by ity of tablet 00:00: 05:59 mouth in [place] 00 :00 the [facility] morning [place] and 1 tablet in the evening. Take with meals. Do all this for 90 days. pantoprazol 2021-2- No [id number] 40mg Take 1 [facility] e 40 mg EC 9-20 12-20 tablet by ity of tablet 00:00: 05:59 mouth in [place] 00 :00 the [facility] and 1 tablet in the evening. Do all this for 90 days. carvediloL 2021-2021- No [id number] 12.5mg Take 1 [facility] 12.5 mg 9-20 12-20 tablet by ity of tablet 00:00: 05:59 mouth in [place] 00 :00 the [facility] and 1 tablet in the evening. Take with meals. Do all this for 90 days. pantoprazol 2021-2021- No [id number] 40mg Take 1 [facility] e 40 mg EC 9-20 12-20 tablet by ity of tablet 00:00: 05:59 mouth in [place] 00 :00 the [facility] and 1 tablet in the evening. Do all this for 90 days. carvediloL 2021-0 2021- No [id number] 12.5mg Take 1 [facility] 12.5 mg 9-20 12-20 tablet by ity of tablet 00:00: 05:59 mouth in [place] 00 :00 the [facility] and 1 tablet in the evening. Take with meals. Do all this for 90 days. pantoprazol 2021-2021- No [id number] 40mg Take 1 [facility] e 40 mg EC 9-20 12-20 tablet by ity of tablet 00:00: 05:59 mouth in [place] 00 :00 the [facility] and 1 tablet in the evening. Do all this for 90 days. carvediloL 2021-0 2- No [id number] 12.5mg Take 1 [facility] 12.5 mg 9-20 12-20 tablet by ity of tablet 00:00: 05:59 mouth in [place] 00 :00 the [facility] and 1 tablet in the evening. Take with meals. Do all this for 90 days. pantoprazol 2021-0 2- No [id number] 40mg Take 1 [facility] e 40 mg EC 9-20 12-20 tablet by ity of tablet 00:00: 05:59 mouth in [place] 00 :00 the [facility] and 1 tablet in the evening. Do all this for 90 days. carvediloL 2021-0 2021- No [id number] 12.5mg Take 1 [facility] 12.5 mg 9-20 12-20 tablet by ity of tablet 00:00: 05:59 mouth in [place] 00 :00 the [facility] and 1 tablet in the evening. Take with meals. Do all this for 90 days. pantoprazol 2021-2021- No [id number] 40mg Take 1 [facility] e 40 mg EC 9-20 12-20 tablet by ity of tablet 00:00: 05:59 mouth in [place] 00 :00 [facility] and 1 tablet in the evening. Do all this for 90 days. carvediloL 2021-2021- No [id number] 12.5mg Take 1 [facility] 12.5 mg 9-20 12-20 tablet by ity of tablet 00:00: 05:59 mouth in [place] 00 :00 [facility] and 1 tablet in the evening. Take with meals. Do all this for 90 days. pantoprazol 2021-2021- No [id number] 40mg Take 1 [facility] e 40 mg EC 9-20 12-20 tablet by ity of tablet 00:00: 05:59 mouth in [place] 00 :00 [facility] and 1 tablet in the evening. Do all this for 90 days. carvediloL 2021-2021- No [id number] 12.5mg Take 1 [facility] 12.5 mg 9-20 12-20 tablet by ity of tablet 00:00: 05:59 mouth in [place] 00 :00 [facility] and 1 tablet in the evening. Take with meals. Do all this for 90 days. pantoprazol 2021-0 2- No [id number] 40mg Take 1 [facility] e 40 mg EC 9-20 12-20 tablet by ity of tablet 00:00: 05:59 mouth in [place] 00 :00 [facility] and 1 tablet in the evening. Do all this for 90 days. carvediloL 2021-2- No [id number] 12.5mg Take 1 [facility] 12.5 mg 9-20 12-20 tablet by ity of tablet 00:00: 05:59 mouth in [place] 00 :00 the [facility] and 1 tablet in the evening. Take with meals. Do all this for 90 days. pantoprazol 2021-0 2- No [id number] 40mg Take 1 [facility] e 40 mg EC 9-20 12-20 tablet by ity of tablet 00:00: 05:59 mouth in [place] 00 :00 the [facility] and 1 tablet in the evening. Do all this for 90 days. carvediloL 2021-0 2- No [id number] 12.5mg Take 1 [facility] 12.5 mg 9-20 12-20 tablet by ity of tablet 00:00: 05:59 mouth in [place] 00 :00 the [facility] and 1 tablet in the evening. Take with meals. Do all this for 90 days. pantoprazol 2021-0 2- No [id number] 40mg Take 1 [facility] e 40 mg EC 9-20 12-20 tablet by ity of tablet 00:00: 05:59 mouth in [place] 00 :00 [facility] and 1 tablet in the evening. Do all this for 90 days. carvediloL 2021-0 2- No [id number] 12.5mg Take 1 [facility] 12.5 mg 9-20 12-20 tablet by ity of tablet 00:00: 05:59 mouth in [place] 00 :00 [facility] and 1 tablet in the evening. Take with meals. Do all this for 90 days. pantoprazol 2021-0 2- No [id number] 40mg Take 1 [facility] e 40 mg EC 9-20 12-20 tablet by ity of tablet 00:00: 05:59 mouth in [place] 00 :00 [facility] and 1 tablet in the evening. Do all this for 90 days. carvediloL 2021-0 2- No [id number] 12.5mg Take 1 [facility] 12.5 mg 9-20 12-20 tablet by ity of tablet 00:00: 05:59 mouth in [place] 00 :00 [facility] and 1 tablet in the evening. Take with meals. Do all this for 90 days. pantoprazol 2-0 2- No [id number] 40mg Take 1 [facility] e 40 mg EC 9-20 12-20 tablet by ity of tablet 00:00: 05:59 mouth in [place] 00 :00 the Medical morning Branch and 1 tablet in the evening. Do all this for 90 days. carvediloL 2- No [id number] 12.5mg Take 1 [facility] 12.5 mg 9-20 12-20 tablet by ity of tablet 00:00: 05:59 mouth in [place] 00 :00 the Medical morning Branch and 1 tablet in the evening. Take with meals. Do all this for 90 days. pantoprazol 2021- No [id number] 40mg Take 1 [facility] e 40 mg EC 9-20 12-20 tablet by ity of tablet 00:00: 05:59 mouth in [place] 00 :00 the Medical morning [place] and 1 tablet in the evening. Do all this for 90 days. carvediloL 2021- No [id number] 12.5mg Take 1 [facility] 12.5 mg 9-20 12-20 tablet by ity of tablet 00:00: 05:59 mouth in [place] 00 :00 the Medical morning [place] and 1 tablet in the evening. Take with meals. Do all this for 90 days. pantoprazol 2021- No [id number] 40mg Take 1 [facility] e 40 mg EC 9-20 12-20 tablet by ity of tablet 00:00: 05:59 mouth in [place] 00 :00 the Medical [facility] and 1 tablet in the evening. Do all this for 90 days. carvediloL 2021- No [id number] 12.5mg Take 1 [facility] 12.5 mg 9-20 12-20 tablet by ity of tablet 00:00: 05:59 mouth in [place] 00 :00 the Medical morning [place] and 1 tablet in the evening. Take with meals. Do all this for 90 days. pantoprazol 2- No [id number] 40mg Take 1 [facility] e 40 mg EC 9-20 12-20 tablet by ity of tablet 00:00: 05:59 mouth in [place] 00 :00 the Medical morning [place] and 1 tablet in the evening. Do all this for 90 days. ferrous 2021-2- No [id number] 325mg Take 1 Un [place] sulfate 325 9-20 12-20 tablet by it y of mg (65 mg 00:00: 05:59 mouth in [facility] [place] [facility] as iron) 00 :00 [facility] for 90 days. carvediloL 2021- No [id number] 12.5mg Take 1 [facility] 12.5 mg 9-20 12-20 tablet by ity of tablet 00:00: 05:59 mouth in [place] 00 :00 the Medical morning Branch and 1 tablet in the evening. Take with meals. Do all this for 90 days. pantoprazol 2021- No [id number] 40mg Take 1 [facility] e 40 mg EC 9-20 12-20 tablet by ity of tablet 00:00: 05:59 mouth in [place] 00 :00 the Medical morning Branch and 1 tablet in the evening. Do all this for 90 days. ferrous 2021-2021- No [id number] 325mg Take 1 Un [place] sulfate 325 9-20 12-20 tablet by it y of mg (65 mg 00:00: 05:59 mouth in [place] as iron) 00 :00 the Medical tablet morning Branch for 90 days. carvediloL 2021- No [id number] 12.5mg Take 1 [facility] 12.5 mg 9-20 12-20 tablet by ity of tablet 00:00: 05:59 mouth in [place] 00 :00 the Medical morning Branch and 1 tablet in the evening. Take with meals. Do all this for 90 days. pantoprazol 2021- No [id number] 40mg Take 1 [facility] e 40 mg EC 9-20 12-20 tablet by ity of tablet 00:00: 05:59 mouth in [place] 00 :00 the Medical morning Branch and 1 tablet in the evening. Do all this for 90 days. ferrous 2021-2021- No [id number] 325mg Take 1 [facility] [place] sulfate 325 9-20 12-20 tablet by it y of mg (65 mg 00:00: 05:59 mouth in [place] iron) 00 :00 the Medical tablet morning Branch for 90 days. carvediloL 2021- No [id number] 12.5mg Take 1 [facility] 12.5 mg 9-20 12-20 tablet by ity of tablet 00:00: 05:59 mouth in [place] 00 :00 the Medical morning Branch and 1 tablet in the evening. Take with meals. Do all this for 90 days. pantoprazol 2021-2- No [id number] 40mg Take 1 [facility] e 40 mg EC 9-20 12-20 tablet by ity of tablet 00:00: 05:59 mouth in [place] 00 :00 the Medical morning Branch and 1 tablet in the evening. Do all this for 90 days. ferrous 2021- No [id number] 325mg Take 1 [facility] [place] 325 9-20 12-20 tablet by it y of mg (65 mg 00:00: 05:59 mouth in [place]) 00 :00 the Medical tablet morning Branch for 90 days. carvediloL 2021- No [id number] 12.5mg Take 1 [facility] 12.5 mg 9-20 12-20 tablet by ity of tablet 00:00: 05:59 mouth in [place] 00 :00 the Medical morning Branch and 1 tablet in the evening. Take with meals. Do all this for 90 days. pantoprazol 2021- No [id number] 40mg Take 1 [facility] e 40 mg EC 9-20 12-20 tablet by ity of tablet 00:00: 05:59 mouth in [place] 00 :00 the Medical morning Branch and 1 tablet in the evening. Do all this for 90 days. ferrous 2021- No [id number] 325mg Take 1 [facility] [place] sulfate 325 9-20 12-20 tablet by it y of mg (65 mg 00:00: 05:59 mouth in [place] as iron) 00 :00 the Medical tablet morning Branch for 90 days. carvediloL 2021- No [id number] 12.5mg Take 1 [facility] 12.5 mg 9-20 12-20 tablet by ity of tablet 00:00: 05:59 mouth in [place] 00 :00 the Medical morning Branch and 1 tablet in the evening. Take with meals. Do all this for 90 days. pantoprazol 2021- No [id number] 40mg Take 1 [facility] e 40 mg EC 9-20 12-20 tablet by ity of tablet 00:00: 05:59 mouth in [place] 00 :00 the Medical morning Branch and 1 tablet in the evening. Do all this for 90 days. ferrous 2021-2021- No [id number] 325mg Take 1 [facility] [place] sulfate 325 9-20 12-20 tablet by it y of mg (65 mg 00:00: 05:59 mouth in [place] as iron) 00 :00 the Medical tablet morning Branch for 90 days. carvediloL 2- No [id number] 12.5mg Take 1 [facility] 12.5 mg 9-20 12-20 tablet by ity of tablet 00:00: 05:59 mouth in [place] 00 :00 the [facility] and 1 tablet in the evening. Take with meals. Do all this for 90 days. pantoprazol 2021-0 2- No [id number] 40mg Take 1 [facility] e 40 mg EC 9-20 12-20 tablet by ity of tablet 00:00: 05:59 mouth in [place] 00 :00 the [facility] and 1 tablet in the evening. Do all this for 90 days. carvediloL 2021-2021- No [id number] 12.5mg Take 1 [facility] 12.5 mg 9-20 12-20 tablet by ity of tablet 00:00: 05:59 mouth in [place] 00 :00 the [facility] and 1 tablet in the evening. Take with meals. Do all this for 90 days. pantoprazol 2021-2021- No [id number] 40mg Take 1 [facility] e 40 mg EC 9-20 12-20 tablet by ity of tablet 00:00: 05:59 mouth in [place] 00 :00 the [facility] and 1 tablet in the evening. Do all this for 90 days. carvediloL 2021-0 2021- No [id number] 12.5mg Take 1 [facility] 12.5 mg 9-20 12-20 tablet by ity of tablet 00:00: 05:59 mouth in [place] 00 :00 the [facility] and 1 tablet in the evening. Take with meals. Do all this for 90 days. pantoprazol 2021-2021- No [id number] 40mg Take 1 [facility] 40 mg EC 9-20 12-20 tablet by [facility] of tablet 00:00: 05:59 mouth in [place] 00 :00 the [facility] and 1 tablet in the evening. Do all this for 90 days. carvediloL 2021-2- No [id number] 12.5mg Take 1 [facility] 12.5 mg 9-20 12-20 tablet by [facility] of tablet 00:00: 05:59 mouth in [place] 00 :00 [facility] and 1 tablet in the evening. Take with meals. Do all this for 90 days. pantoprazol 2021-0 2- No [id number] 40mg Take 1 [facility] e 40 mg EC 9-20 12-20 tablet by ity of tablet 00:00: 05:59 mouth in [place] 00 :00 the [facility] and 1 tablet in the evening. Do all this for 90 days. carvediloL 2021-2021- No [id number] 12.5mg Take 1 [facility] 12.5 mg 9-20 12-20 tablet by ity of tablet 00:00: 05:59 mouth in [place] 00 :00 the [facility] and 1 tablet in the evening. Take with meals. Do all this for 90 days. pantoprazol 2021- No [id number] 40mg Take 1 [facility] e 40 mg EC 9-20 12-20 tablet by ity of tablet 00:00: 05:59 mouth in [place] 00 :00 [facility] and 1 tablet in the evening. Do all this for 90 days. carvediloL 2021- No [id number] 12.5mg Take 1 [facility] 12.5 mg 9-20 12-20 tablet by [facility] of tablet 00:00: 05:59 mouth in [place] 00 :00 [facility] and 1 tablet in the evening. Take with meals. Do all this for 90 days. pantoprazol 2021-2021- No [id number] 40mg Take 1 [facility] e 40 mg EC 9-20 12-20 tablet by [facility] of tablet 00:00: 05:59 mouth in [place] 00 :00 [facility] and 1 tablet in the evening. Do all this for 90 days. carvediloL 2021- No [id number] 12.5mg Take 1 [facility] 12.5 mg 9-20 12-20 tablet by [facility] of tablet 00:00: 05:59 mouth in [place] 00 :00 [facility] and 1 tablet in the evening. Take with meals. Do all this for 90 days. pantoprazol 2021-0 2- No [id number] 40mg Take 1 [facility] e 40 mg EC 9-20 12-20 tablet by [facility] of tablet 00:00: 05:59 mouth in [place] 00 :00 [facility] and 1 tablet in the evening. Do all this for 90 days. carvediloL 2021-0 2- No [id number] 12.5mg Take 1 [facility] 12.5 mg 9-20 12-20 tablet by [facility] of tablet 00:00: 05:59 mouth in [place] 00 :00 the [facility] and 1 tablet in the evening. Take with meals. Do all this for 90 days. pantoprazol 2021-0 2- No [id number] 40mg Take 1 [facility] e 40 mg EC 9-20 12-20 tablet by [facility] of tablet 00:00: 05:59 mouth in [place] 00 :00 the [facility] and 1 tablet in the evening. Do all this for 90 days. carvediloL 2021-0 2021- No [id number] 12.5mg Take 1 [facility] 12.5 mg 9-20 12-20 tablet by [facility] of tablet 00:00: 05:59 mouth in [place] 00 :00 the [facility] and 1 tablet in the evening. Take with meals. Do all this for 90 days. pantoprazol 2021-2- No [id number] 40mg Take 1 [facility] e 40 mg EC 9-20 12-20 tablet by [facility] of tablet 00:00: 05:59 mouth in [place] 00 :00 [facility] and 1 tablet in the evening. Do all this for 90 days. carvediloL 2021-0 2- No [id number] 12.5mg Take 1 [facility] 12.5 mg 9-20 12-20 tablet by [facility] of tablet 00:00: 05:59 mouth in [place] 00 :00 [facility] and 1 tablet in the evening. Take with meals. Do all this for 90 days. pantoprazol 2021-2- No [id number] 40mg Take 1 [facility] e 40 mg EC 9-20 12-20 tablet by [facility] of tablet 00:00: 05:59 mouth in [place] 00 :00 [facility] and 1 tablet in the evening. Do all this for 90 days. carvediloL 2021-0 2- No [id number] 12.5mg Take 1 [facility] 12.5 mg 9-20 12-20 tablet by [facility] of tablet 00:00: 05:59 mouth in [place] 00 :00 [facility] and 1 tablet in the evening. Take with meals. Do all this for 90 days. pantoprazol 2021-0 2- No [id number] 40mg Take 1 [facility] e 40 mg EC 9-20 12-20 tablet by [facility] of tablet 00:00: 05:59 mouth in [place] 00 :00 the [facility] and 1 tablet in the evening. Do all this for 90 days. carvediloL 2021-0 2- No [id number] 12.5mg Take 1 [facility] 12.5 mg 9-20 12-20 tablet by [facility] of tablet 00:00: 05:59 mouth in [place] 00 :00 the [facility] and 1 tablet in the evening. Take with meals. Do all this for 90 days. pantoprazol 2021-2021- No [id number] 40mg Take 1 [facility] e 40 mg EC 9-20 12-20 tablet by [facility] of tablet 00:00: 05:59 mouth in [place] 00 :00 the [facility] and 1 tablet in the evening. Do all this for 90 days. carvediloL 2021-2021- No [id number] 12.5mg Take 1 [facility] 12.5 mg 9-20 12-20 tablet by [facility] of tablet 00:00: 05:59 mouth in [place] 00 :00 the [facility] and 1 tablet in the evening. Take with meals. Do all this for 90 days. pantoprazol 2021-0 2021- No [id number] 40mg Take 1 [facility] e 40 mg EC 9-20 12-20 tablet by [facility] of tablet 00:00: 05:59 mouth in [place] 00 :00 the [facility] and 1 tablet in the evening. Do all this for 90 days. carvediloL 2021-2021- No [id number] 12.5mg Take 1 [facility] 12.5 mg 9-20 12-20 tablet by [facility] of tablet 00:00: 05:59 mouth in [place] 00 :00 [facility] and 1 tablet in the evening. Take with meals. Do all this for 90 days. pantoprazol 2021-0 2- No [id number] 40mg Take 1 [facility] e 40 mg EC 9-20 12-20 tablet by [facility] of tablet 00:00: 05:59 mouth in [place] 00 :00 [facility] and 1 tablet in the evening. Do all this for 90 days. carvediloL 2021-0 2- No [id number] 12.5mg Take 1 [facility] 12.5 mg 9-20 12-20 tablet by [facility] of tablet 00:00: 05:59 mouth in [place] 00 :00 the [facility] and 1 tablet in the evening. Take with meals. Do all this for 90 days. pantoprazol 2021-0 2- No [id number] 40mg Take 1 [facility] e 40 mg EC 9-20 12-20 tablet by [facility] of tablet 00:00: 05:59 mouth in [place] 00 :00 the [facility] and 1 tablet in the evening. Do all this for 90 days. carvediloL 2021-0 2- No [id number] 12.5mg Take 1 [facility] 12.5 mg 9-20 12-20 tablet by [facility] of tablet 00:00: 05:59 mouth in [place] 00 :00 the [facility] morning [facility] and 1 tablet in the evening. Take with meals. Do all this for 90 days. pantoprazol 2021-0 2021- No [id number] 40mg Take 1 [facility] e 40 mg EC 9-20 12-20 tablet by [facility] of tablet 00:00: 05:59 mouth in [place] 00 :00 the [facility] morning [place] and 1 tablet in the evening. Do all this for 90 days. carvediloL 2021-0 2021- No [id number] 12.5mg Take 1 [facility] 12.5 mg 9-20 12-20 tablet by it[facility] of tablet 00:00: 05:59 mouth in [place] 00 :00 the [facility] morning [place] and 1 tablet in the evening. Take with meals. Do all this for 90 days. pantoprazol 2021-0 2021- No [id number] 40mg Take 1 [facility] e 40 mg EC 9-20 12-20 tablet by [facility] of tablet 00:00: 05:59 mouth in [place] 00 :00 the [facility] morning [place] and 1 tablet in the evening. Do all this for 90 days. carvediloL 2021-0 2- No [id number] 12.5mg Take 1 [facility] 12.5 mg 9-20 12-20 tablet by [facility] of tablet 00:00: 05:59 mouth in [place] 00 :00 the [facility] morning [place] and 1 tablet in the evening. Take with meals. Do all this for 90 days. pantoprazol 2-0 2- No [id number] 40mg Take 1 [facility] e 40 mg EC 9-20 12-20 tablet by [facility] of tablet 00:00: 05:59 mouth in [place] 00 :00 the [facility] morning [place] and 1 tablet in the evening. Do all this for 90 days. carvediloL 2022-0 2- No [id number] 12.5mg Take 1 [facility] 12.5 mg 9-20 12-20 tablet by [facility] of tablet 00:00: 05:59 mouth in [place] 00 :00 the [facility] and 1 tablet in the evening. Take with meals. Do all this for 90 days. pantoprazol 2021-0 2- No [id number] 40mg Take 1 [facility] e 40 mg EC 9-20 12-20 tablet by it[facility] of tablet 00:00: 05:59 mouth in [place] 00 :00 the [facility] and 1 tablet in the evening. Do all this for 90 days. carvediloL 2021-2021- No [id number] 12.5mg Take 1 [facility] 12.5 mg 9-20 12-20 tablet by [facility] of tablet 00:00: 05:59 mouth in [place] 00 :00 the [facility] and 1 tablet in the evening. Take with meals. Do all this for 90 days. pantoprazol 2021-0 2021- No [id number] 40mg Take 1 [facility] e 40 mg EC 9-20 12-20 tablet by [facility] of tablet 00:00: 05:59 mouth in [place] 00 :00 the [facility] and 1 tablet in the evening. Do all this for 90 days. carvediloL 2021-0 2021- No [id number] 12.5mg Take 1 [facility] 12.5 mg 9-20 12-20 tablet by [facility] of tablet 00:00: 05:59 mouth in [place] 00 :00 the [facility] and 1 tablet in the evening. Take with meals. Do all this for 90 days. pantoprazol 2021-2- No [id number] 40mg Take 1 [facility] e 40 mg EC 9-20 12-20 tablet by [facility] of tablet 00:00: 05:59 mouth in [place] 00 :00 the [facility] and 1 tablet in the evening. Do all this for 90 days. carvediloL 2021-2- No [id number] 12.5mg Take 1 [facility] 12.5 mg 9-20 12-20 tablet by [facility]y of tablet 00:00: 05:59 mouth in [place] 00 :00 [facility] and 1 tablet in the evening. Take with meals. Do all this for 90 days. pantoprazol 2021-0 2022- No [id number] 40mg Take 1 [facility] e 40 mg EC 9-20 12-20 tablet by [facility] of tablet 00:00: 05:59 mouth in [place] 00 :00 the [facility] and 1 tablet in the evening. Do all this for 90 days. carvediloL 2021-0 2021- No [id number] 12.5mg Take 1 [facility] 12.5 mg 9-20 12-20 tablet by it[facility] of tablet 00:00: 05:59 mouth in [place] 00 :00 the [facility] and 1 tablet in the evening. Take with meals. Do all this for 90 days. pantoprazol 2021-2021- No [id number] 40mg Take 1 [facility] e 40 mg EC 9-20 12-20 tablet by ity of tablet 00:00: 05:59 mouth in [place] 00 :00 the [facility] and 1 tablet in the evening. Do all this for 90 days. carvediloL 2021-2021- No [id number] 12.5mg Take 1 [facility] 12.5 mg 9-20 12-20 tablet by [facility] of tablet 00:00: 05:59 mouth in [place] 00 :00 [facility] and 1 tablet in the evening. Take with meals. Do all this for 90 days. pantoprazol 2021-2021- No [id number] 40mg Take 1 [facility] e 40 mg EC 9-20 12-20 tablet by ity of tablet 00:00: 05:59 mouth in [place] 00 :00 [facility] and 1 tablet in the evening. Do all this for 90 days. carvediloL 2021- No [id number] 12.5mg Take 1 [facility] 12.5 mg 9-20 12-20 tablet by [facility]y of tablet 00:00: 05:59 mouth in [place] 00 :00 [facility] and 1 tablet in the evening. Take with meals. Do all this for 90 days. pantoprazol 2021-0 2- No [id number] 40mg Take 1 [facility] e 40 mg EC 9-20 12-20 tablet by ity of tablet 00:00: 05:59 mouth in [place] 00 :00 [facility] and 1 tablet in the evening. Do all this for 90 days. carvediloL 2021-0 2- No [id number] 12.5mg Take 1 [facility] 12.5 mg 9-20 12-20 tablet by ity of tablet 00:00: 05:59 mouth in [place] 00 :00 [facility] and 1 tablet in the evening. Take with meals. Do all this for 90 days. pantoprazol 2021-0 2- No [id number] 40mg Take 1 [facility] e 40 mg EC 9-20 12-20 tablet by ity of tablet 00:00: 05:59 mouth in [place] 00 :00 the [facility] and 1 tablet in the evening. Do all this for 90 days. carvediloL 2021-2- No [id number] 12.5mg Take 1 [facility] 12.5 mg 9-20 12-20 tablet by [facility] of tablet 00:00: 05:59 mouth in [place] 00 :00 [facility] and 1 tablet in the evening. Take with meals. Do all this for 90 days. pantoprazol 2021-2- No [id number] 40mg Take 1 [facility] e 40 mg EC 9-20 12-20 tablet by ity of tablet 00:00: 05:59 mouth in [place] 00 :00 [facility] and 1 tablet in the evening. Do all this for 90 days. carvediloL 2021-0 2- No [id number] 12.5mg Take 1 [facility] 12.5 mg 9-20 12-20 tablet by [facility] of tablet 00:00: 05:59 mouth in [place] 00 :00 [facility] and 1 tablet in the evening. Take with meals. Do all this for 90 days. pantoprazol 2021-2- No [id number] 40mg Take 1 [facility] e 40 mg EC 9-20 12-20 tablet by ity of tablet 00:00: 05:59 mouth in [place] 00 :00 [facility] and 1 tablet in the evening. Do all this for 90 days. carvediloL 2021-0 2- No [id number] 12.5mg Take 1 [facility] 12.5 mg 9-20 12-20 tablet by it[facility] of tablet 00:00: 05:59 mouth in [place] 00 :00 [facility] and 1 tablet in the evening. Take with meals. Do all this for 90 days. pantoprazol 2021-0 2- No [id number] 40mg Take 1 [facility] e 40 mg EC 9-20 12-20 tablet by ity of tablet 00:00: 05:59 mouth in [place] 00 :00 the [facility] morning [place] and 1 tablet in the evening. Do all this for 90 days. carvediloL 2021-0 2- No [id number] 12.5mg Take 1 [facility] 12.5 mg 9-20 12-20 tablet by ity of tablet 00:00: 05:59 mouth in [place] 00 :00 the [facility] and 1 tablet in the evening. Take with meals. Do all this for 90 days. pantoprazol 2021-0 2021- No [id number] 40mg Take 1 [facility] e 40 mg EC 9-20 12-20 tablet by [facility]y of tablet 00:00: 05:59 mouth in [place] 00 :00 the [facility] and 1 tablet in the evening. Do all this for 90 days. carvediloL 2021-0 2021- No [id number] 12.5mg Take 1 [facility] 12.5 mg 9-20 12-20 tablet by ity of tablet 00:00: 05:59 mouth in [place] 00 :00 the [facility] and 1 tablet in the evening. Take with meals. Do all this for 90 days. pantoprazol 2021-0 2021- No [id number] 40mg Take 1 [facility] e 40 mg EC 9-20 12-20 tablet by ity of tablet 00:00: 05:59 mouth in [place] 00 :00 the [facility] and 1 tablet in the evening. Do all this for 90 days. carvediloL 2021-2021- No [id number] 12.5mg Take 1 [facility] 12.5 mg 9-20 12-20 tablet by ity of tablet 00:00: 05:59 mouth in [place] 00 :00 [facility] and 1 tablet in the evening. Take with meals. Do all this for 90 days. pantoprazol 2021-0 2- No [id number] 40mg Take 1 [facility] e 40 mg EC 9-20 12-20 tablet by ity of tablet 00:00: 05:59 mouth in [place] 00 :00 [facility] and 1 tablet in the evening. Do all this for 90 days. carvediloL 2021-0 2- No [id number] 12.5mg Take 1 [facility] 12.5 mg 9-20 12-20 tablet by [facility] of tablet 00:00: 05:59 mouth in [place] 00 :00 the [facility] and 1 tablet in the evening. Take with meals. Do all this for 90 days. pantoprazol 2-0 2- No [id number] 40mg Take 1 [facility] e 40 mg EC 9-20 12-20 tablet by ity of tablet 00:00: 05:59 mouth in [place] 00 :00 the [facility] morning [facility] and 1 tablet in the evening. Do all this for 90 days. carvediloL 2021-0 2- No [id number] 12.5mg Take 1 [facility] 12.5 mg 9-20 12-20 tablet by ity of tablet 00:00: 05:59 mouth in [place] 00 :00 the [facility] morning [place] and 1 tablet in the evening. Take with meals. Do all this for 90 days. pantoprazol 2021-0 2- No [id number] 40mg Take 1 [facility] e 40 mg EC 9-20 12-20 tablet by ity of tablet 00:00: 05:59 mouth in [place] 00 :00 the [facility] and 1 tablet in the evening. Do all this for 90 days. carvediloL 2021-0 2021- No [id number] 12.5mg Take 1 [facility] 12.5 mg 9-20 12-20 tablet by ity of tablet 00:00: 05:59 mouth in [place] 00 :00 the [facility] and 1 tablet in the evening. Take with meals. Do all this for 90 days. pantoprazol 2-0 2- No [id number] 40mg Take 1 [facility] e 40 mg EC 9-20 12-20 tablet by ity of tablet 00:00: 05:59 mouth in [place] 00 :00 the [facility] and 1 tablet in the evening. Do all this for 90 days. carvediloL 2021-0 2- No [id number] 12.5mg Take 1 [facility] 12.5 mg 9-20 12-20 tablet by ity of tablet 00:00: 05:59 mouth in [place] 00 :00 the [facility] morning [place] and 1 tablet in the evening. Take with meals. Do all this for 90 days. pantoprazol 2022-0 2- No [id number] 40mg Take 1 [facility] e 40 mg EC 9-20 12-20 tablet by [facility] of tablet 00:00: 05:59 mouth in [place] 00 :00 the [facility] morning [place] and 1 tablet in the evening. Do all this for 90 days. carvediloL 2022-0 2022- No [id number] 12.5mg Take 1 [facility] 12.5 mg 9-20 12-20 tablet by [facility]y of tablet 00:00: 05:59 mouth in [place] 00 :00 the [facility] and 1 tablet in the evening. Take with meals. Do all this for 90 days. pantoprazol 2021- No [id number] 40mg Take 1 [facility] e 40 mg EC 9-20 12-20 tablet by [facility]y of tablet 00:00: 05:59 mouth in [place] 00 :00 the [facility] morning [facility] and 1 tablet in the evening. Do all this for 90 days. carvediloL 2021- No [id number] 12.5mg Take 1 [facility] 12.5 mg 9-20 12-20 tablet by [facility]y of tablet 00:00: 05:59 mouth in [place] 00 :00 the [facility] morning [facility] and 1 tablet in the evening. Take with meals. Do all this for 90 days. nicotine 14 2021- No [id number] 1{patch Apply 1 [facility] mg/24 hr 9-20 11-20 } Patch to ity of patch 00:00: 05:59 area(s) [place] 00 :00 every 24 Medical (twenty[facility] ur) hours for 60 days. nicotine 14 2021- No [id number] 1{patch Apply 1 [facility] mg/24 hr 9-20 11-20 } Patch to [facility]y of patch 00:00: 05:59 area(s) [place] 00 :00 every 24 Medical (twenty[facility] ur) hours for 60 days. nicotine 14 2021- No [id number] 1{patch Apply 1 [facility] mg/24 hr 9-20 11-20 } Patch to [facility]y of patch 00:00: 05:59 area(s) [place] 00 :00 every 24 Medical (twenty[facility] ur) hours for 60 days. nicotine 14 2021- No [id number] 1{patch Apply 1 [facility] mg/24 hr 9-20 11-20 } Patch to ity of patch 00:00: 05:59 area(s) [place] 00 :00 every 24 Medical (twenty[facility] ur) hours for 60 days. nicotine 14 2021- No [id number] 1{patch Apply 1 [facility] mg/24 hr 9-20 11-20 } Patch to ity of patch 00:00: 05:59 area(s) [place] 00 :00 every 24 Medical (twenty[facility] ur) hours for 60 days. nicotine 2021- No [id number] 1{patch Apply 1 [facility] mg/24 hr 9-20 11-20 } Patch to [facility]y of patch 00:00: 05:59 area(s) [place] 00 :00 every 24 Medical (tw[facility] ur) hours for 60 days. nicotine 2021- No [id number] 1{patch Apply 1 [facility] mg/24 hr 9-20 11-20 } Patch to [facility]y of patch 00:00: 05:59 area(s) [place] 00 :00 every 24 Medical (twenty[facility] ur) hours for 60 days. nicotine 2021- No [id number] 1{patch Apply 1 [facility] mg/24 hr 9-20 11-20 } Patch to ity of patch 00:00: 05:59 area(s) [place] 00 :00 every 24 Medical (tw[facility] ur) hours for 60 days. nicotine 2021- No [id number] 1{patch Apply 1 [facility] mg/24 hr 9-20 11-20 } Patch to [facility]y of patch 00:00: 05:59 area(s) [place] 00 :00 every 24 Medical (twenty[facility] ur) hours for 60 days. nicotine 2021- No [id number] 1{patch Apply 1 [facility] mg/24 hr 9-20 11-20 } Patch to ity of patch 00:00: 05:59 area(s) [place] 00 :00 every 24 Medical (twenty[facility] ur) hours for 60 days. nicotine 2021- No [id number] 1{patch Apply 1 [facility] mg/24 hr 9-20 11-20 } Patch to ity of patch 00:00: 05:59 area(s) [place] 00 :00 every 24 Medical (twenty[facility] ur) hours for 60 days. nicotine 2021- No [id number] 1{patch Apply 1 [facility] mg/24 hr 9-20 11-20 } Patch to ity of patch 00:00: 05:59 area(s) [place] 00 :00 every 24 Medical (tw[facility] ur) hours for 60 days. nicotine 2021- No [id number] 1{patch Apply 1 [facility] mg/24 hr 9-20 11-20 } Patch to ity of patch 00:00: 05:59 area(s) [place] 00 :00 every 24 Medical (twenty[facility] ur) hours for 60 days. nicotine 14 2021- No [id number] 1{patch Apply 1 [facility] mg/24 hr 9-20 11-20 } Patch to ity of patch 00:00: 05:59 area(s) [place] 00 :00 every 24 Medical (twenty[facility] ur) hours for 60 days. nicotine 14 2021- No [id number] 1{patch Apply 1 [facility] mg/24 hr 9-20 11-20 } Patch to ity of patch 00:00: 05:59 area(s) [place] 00 :00 every 24 Medical (twenty[facility] ur) hours for 60 days. nicotine 14 2021- No [id number] 1{patch Apply 1 [facility] mg/24 hr 9-20 11-20 } Patch to ity of patch 00:00: 05:59 area(s) [place] 00 :00 every 24 Medical (twenty[facility] ur) hours for 60 days. nicotine 2021- No [id number] 1{patch Apply 1 [facility] mg/24 hr 9-20 11-20 } Patch to ity of patch 00:00: 05:59 area(s) [place] 00 :00 every 24 Medical (tw[facility] ur) hours for 60 days. nicotine 2021- No [id number] 1{patch Apply 1 [facility] mg/24 hr 9-20 11-20 } Patch to ity of patch 00:00: 05:59 area(s) [place] 00 :00 every 24 Medical (tw[facility] ur) hours for 60 days. nicotine 14 2021- No [id number] 1{patch Apply 1 [facility] mg/24 hr 9-20 11-20 } Patch to ity of patch 00:00: 05:59 area(s) [place] 00 :00 every 24 Medical (twenty[facility] ur) hours for 60 days. nicotine 14 2021- No [id number] 1{patch Apply 1 [facility] mg/24 hr 9-20 11-20 } Patch to ity of patch 00:00: 05:59 area(s) [place] 00 :00 every 24 Medical ([facility] ur) hours for 60 days. nicotine 2021- No [id number] 1{patch Apply 1 [facility] mg/24 hr 9-20 11-20 } Patch to ity of patch 00:00: 05:59 area(s) [place] 00 :00 every 24 Medical ([facility] ur) hours for 60 days. nicotine 2021- No [id number] 1{patch Apply 1 [facility] mg/24 hr 9-20 11-20 } Patch to ity of patch 00:00: 05:59 area(s) [place] 00 :00 every 24 Medical (twenty[facility] ur) hours for 60 days. nicotine 14 2021- No [id number] 1{patch Apply 1 [facility] mg/24 hr 9-20 11-20 } Patch to ity of patch 00:00: 05:59 area(s) [place] 00 :00 every 24 Medical ([facility] ur) hours for 60 days. nicotine 2021- No [id number] 1{patch Apply 1 [facility] mg/24 hr 9-20 11-20 } Patch to ity of patch 00:00: 05:59 area(s) [place] 00 :00 every 24 Medical ([facility] ur) hours for 60 days. nicotine 14 No [id number] 1{patch Apply 1 [facility] mg/24 hr 9-20 11-20 } Patch to ity of patch 00:00: 05:59 area(s) [place] 00 :00 every 24 Medical ([facility] ur) hours for 60 days. nicotine No [id number] 1{patch Apply 1 [facility] mg/24 hr 9-20 11-20 } Patch to ity of patch 00:00: 05:59 area(s) [place] 00 :00 every 24 Medical (tw[facility] ur) hours for 60 days. nicotine 14 2021- No [id number] 1{patch Apply 1 [facility] mg/24 hr 9-20 11-20 } Patch to ity of patch 00:00: 05:59 area(s) [place] 00 :00 every 24 Medical ([facility] ur) hours for 60 days. nicotine 14 No [id number] 1{patch Apply 1 [facility] mg/24 hr 9-20 11-20 } Patch to ity of patch 00:00: 05:59 area(s) [place] 00 :00 every 24 Medical ([facility] ur) hours for 60 days. nicotine 2021- No [id number] 1{patch Apply 1 [facility] mg/24 hr 9-20 11-20 } Patch to ity of patch 00:00: 05:59 area(s) [place] 00 :00 every 24 Medical (twenty- Branch ur) hours for 60 days. nicotine 2021- No [id number] 1{patch Apply 1 [facility] mg/24 hr 9-20 11-20 } Patch to ity of patch 00:00: 05:59 area(s) [place] 00 :00 every 24 Medical ([facility] ur) hours for 60 days. nicotine 2021- No [id number] 1{patch Apply 1 [facility] mg/24 hr 9-20 11-20 } Patch to ity of patch 00:00: 05:59 area(s) [place] 00 :00 every 24 Medical ([facility] Branch ur) hours for 60 days. nicotine 2021- No [id number] 1{patch Apply 1 [facility] mg/24 hr 9-20 11-20 } Patch to ity of patch 00:00: 05:59 area(s) [place] 00 :00 every 24 Medical ([facility] Branch ur) hours for 60 days. nicotine 2021- No [id number] 1{patch Apply 1 [facility] mg/24 hr 9-20 11-20 } Patch to ity of patch 00:00: 05:59 area(s) [place] 00 :00 every 24 Medical (twenty- Branch ur) hours for 60 days. nicotine 2021- No [id number] 1{patch Apply 1 [facility] mg/24 hr 9-20 11-20 } Patch to ity of patch 00:00: 05:59 area(s) [place] 00 :00 every 24 Medical ([facility] ur) hours for 60 days. nicotine 2021- No [id number] 1{patch Apply 1 [facility] mg/24 hr 9-20 11-20 } Patch to ity of patch 00:00: 05:59 area(s) [place] 00 :00 every 24 Medical (twenty[facility] Branch ur) hours for 60 days. nicotine 14 2021- No [id number] 1{patch Apply 1 [facility] mg/24 hr 9-20 11-20 } Patch to ity of patch 00:00: 05:59 area(s) [place] 00 :00 every 24 Medical (twenty[facility] ur) hours for 60 days. nicotine 14 2021- No [id number] 1{patch Apply 1 [facility] mg/24 hr 9-20 11-20 } Patch to ity of patch 00:00: 05:59 area(s) [place] 00 :00 every 24 Medical (twenty[facility] ur) hours for 60 days. nicotine 14 2021- No [id number] 1{patch Apply 1 [facility] mg/24 hr 9-20 11-20 } Patch to ity of patch 00:00: 05:59 area(s) [place] 00 :00 every 24 Medical (twenty[facility] Branch ur) hours for 60 days. nicotine 14 2021- No [id number] 1{patch Apply 1 [facility] mg/24 hr 9-20 11-20 } Patch to ity of patch 00:00: 05:59 area(s) [place] 00 :00 every 24 Medical (twenty-fo Branch ur) hours for 60 days. ferrous 2021- No [id number] 325mg Take 1 Un nando sulfate 325 9-20 10-19 tablet by it y of mg (65 mg 00:00: 00:00 mouth in [place] iron) 00 :00 the Medical tablet morning Branch for 90 days. ticagrelor 2021- No [id number] 90mg Take 1 Univers 90 mg 9-20 10-19 tablet by ity of tablet 00:00: 00:00 mouth in [place] 00 :00 the Medical morning Branch and 1 tablet in the evening. Do all this for 360 days. ferrous 2021- No [id number] 325mg Take 1 Un [facility] sulfate 325 9-20 10-19 tablet by it y of mg (65 mg 00:00: 00:00 mouth in [place] iron) 00 :00 the Medical tablet morning Branch for 90 days. ticagrelor 2021- No [id number] 90mg Take 1 Univers 90 mg 9-20 10-19 tablet by ity of tablet 00:00: 00:00 mouth in [place] 00 :00 the Medical morning Branch and 1 tablet in the evening. Do all this for 360 days. NaCl 0.9% 2021- No 1000mL at 75 Univ ers (NS) IV 05-31 mL/hr, IV ity of infusion 23:15: 16:43 Infusion, [place] as 1,000 mL 00 :09 CONTINUOUS Medic al , Starting Branch on Tue05/31/22 at 1815, Until Tue06/01/22 at 1143, Routine aspirin Yes 325mg 325 mg, Univer s tablet 325 05-31 Oral, ity of mg 20:47: PRE-PROCED [place] [address] URE ONCE, Medical 1 dose, Branch Starting on Tue05/31/22 at 1547, Until Discontinu ed, Routine, Surgery/Pr ocedure, CV Preprocedu re aspirin 2021-0 Yes 325mg 325 mg, Univer s tablet 325 05-31 Oral, ity of mg 20:47: PRE-PROCED [place] [address] URE ONCE, Medical 1 dose, Branch Starting on Tue05/31/22 at 1547, Until Discontinu ed, Routine, Surgery/Pr ocedure, CV Preprocedu re iohexol 2021- No ONCE INTRA Uni vers (OMNIPAQUE 05-31 PROCEDURE, it y of 300-100 mL) 20:24: 20:39 [place] injection 19 :12 on [facility] 05/31/22 at Branch 1524, Until Tue05/31/22 at 1539, Routine, CV Intraproce dure NaCl 0.9% 2021- No CONTINUOUS U nivers (NS) IV 05-31 PRN, ity of infusion 20:02: 20:02 [place] 27 :27 on [facility] 05/31/22 at Branch 1502, Until Discontinu ed, Routine, CV Intraproce dure ticagrelor 2021- No ONCE INTRA Univers (BRILINTA) 05-31 PROCEDURE, it y of tablet 19:41: 20:39 Starting [place] 13 :12 on [facility] 05/31/22 at Branch 1441, Until Tue05/31/22 at 1539, Routine, CV Intraproce dure nitroglycer 2021- No ONCE INTRA Univers in (TRIDIL) 05-31 PROCEDURE, i ty of 2 mg in 10 18:58: 20:39 [place] mL D5W for 06 :12 on [facility] Cardiac 05/31/22 at Branch Cath 1358, Until 05/31/22 at 1539, Routine, CV Intraproce dure heparin 2021- No ONCE INTRA Uni vers 1,000 05-31 PROCEDURE, ity of unit/mL 18:57: 20:39 Starting [place] injection 50 :12 on [facility] 05/31/22 at Branch 1357, Until 05/31/22 at 1539, Routine, CV Intraproce dure lidocaine 2021- No ONCE INTRA U nivers 1% (PF) 05-31 PROCEDURE, ity o f (XYLOCAINE) 18:53: 20:39 Starting [place] injection 01 :12 on [facility] 05/31/22 at Branch 1353, Until [facility] 05/31/22 at 1539, Routine, CV Intraproce dure midazolam 2021- No ONCE INTRA U nivers (VERSED) 05-31 PROCEDURE, ity of injection 18:50: 20:39 Starting [place] as 02 :12 on [facility] 05/31/22 at Branch 1350, Until 05/31/22 at 1539, Routine, CV Intraproce dure FENTanyl PF 2021- No ONCE INTRA Univers (SUBLIMAZE 05-31 PROCEDURE, it y of (PF)) 18:49: 20:39 Starting [place] injection 43 :12 on [facility] 05/31/22 at Branch 1349, Until 05/31/22 at 1539, Routine, CV Intraproce dure acetaminoph Yes 650mg 650 mg, Un nando en 05-31 Oral, ity of (TYLENOL) 01:48: Q6HPRN, [place] tablet 650 42 Starting Medic al mg on [place] Branch 05/30/22 at 2048, Until Discontinu ed, Routine, Pain (scale 1-3), Pain (scale 4-6) acetaminoph Yes 650mg 650 mg, Un nando en 05-31 Oral, ity of (TYLENOL) 01:48: Q6HPRN, [place] tablet 650 42 Starting Medic al mg on [facility] 05/30/22 at 2048, Until Discontinu ed, Routine, Pain (scale 1-3), Pain (scale 4-6) isosorbide No 30mg 30 mg, Univ ers mononitrate 05-30 Oral, ity of (IMDUR) 24 14:00: 16:58 DAILY, [place] hr tablet 00 :17 First dose Medi laura 30 mg on [facility] 05/30/22 at 0900, Until Discontinu ed, Routine magnesium No 2g 2 g, IV Univ ers sulfate in 05-30 Piggyback, it y of water 2 13:00: 15:17 Administer [place] as gram/50 mL 00 :00 over 60 Medica l (4 %) Minutes, Branch infusion 2 ONCE, 1 g dose, On [place] 05/30/22 at 0800, Routine carvediloL No 6.25mg 6.25 mg, Univers (COREG) 05-29 Oral, BID ity of tablet 6.25 22:00: 12:48 MEALS, [place] mg 00 :55 First dose Medical on [facility] 05/29/22 at 1700, Until Discontinu ed, Routine nicotine Yes 1{patch 1 Patch, Un nando (NICODERM) 05-29 } Topical, ity o f 14 mg/24 hr 17:28: Administer [place] patch 1 19 over 24 Medical Patch Hours, Branch Q24H, First dose (after last modificati on) on [facility] 05/29/22 at 1230, Until Discontinu ed, Routine nicotine Yes 1{patch 1 Patch, Un nando (NICODERM) 05-29 } Topical, ity o f 14 mg/24 hr 17:28: Administer [place] patch 1 19 over 24 Medical Patch Hours, Branch Q24H, First dose (after last modificati on) on [facility] 05/29/22 at 1230, Until Discontinu ed, Routine atorvastati 2021- No 40mg 40 mg, Uni vers n (LIPITOR) 05-29 Oral, QHS, i ty of tablet 40 02:00: 22:12 First dose [place] mg 00 :27 on Fri Medical 05/28/22 at Branch 2100, Until Discontinu ed, Routine Sliding Yes Subcutaneo Univ ers Scale 9-16 us, TID ity of Insulin - 22:00: MEALS+HS, [place] as Lispro 00 First dose Medical (HumaLOG) + on Tue Branch [facility] 05/28/22 at Testing 1700, Until Discontinu ed, Routine Sliding 0 Yes Subcutaneo Univ ers Scale 9-16 us, TID ity of Insulin - 22:00: MEALS+HS, [place] Lispro 00 First dose Medical (HumaLOG) + on Tue Branch [facility] 05/28/22 at Testing 1700, Until Discontinu ed, Routine glucagon Yes 1mg 1 mg, Univers (GLUCAGEN 05-28 Intramuscu ity of DIAGNOSTIC 19:16: lar, PRN, [place] KIT) 04 Starting Medical injection 1 on Tue Branch 05/28/22 at 1416, Until Discontinu ed, MARCELA, Blood Glucose < or = 70 mg/dL and patient is unable to swallow or has mental changes. dextrose 50 0 Yes 25mL 25 mL, Univ ers % in water 05-28 Slow IV ity of (D50W) 19:16: Push, PRN, [place] injection 04 Starting Medica l 25 mL on Tue Branch 05/28/22 at 1416, Until Discontinu ed, MARCELA, Blood Glucose < or = 70 mg/dL and patient is unable to swallow or has mental status changes. glucagon Yes 1mg 1 mg, Univers (GLUCAGEN 05-28 Intramuscu ity of DIAGNOSTIC 19:16: lar, PRN, [place] KIT) 04 Starting Medical injection 1 on Tue Branch 05/28/22 at 1416, Until Discontinu ed, MARCELA, Blood Glucose < or = 70 mg/dL and patient is unable to swallow or has mental changes. dextrose 50 0 Yes 25mL 25 mL, Univ ers % in water 05-28 Slow IV ity of (D50W) 19:16: Push, PRN, [place] injection 04 Starting Medica l 25 mL on Fri Branch 05/28/22 at 1416, Until Discontinu ed, MARCELA, Blood Glucose < or = 70 mg/dL and patient is unable to swallow or has mental status changes. metoprolol 2021- No 25mg 25 mg, Univ ers succinate 05-28 Oral, ity of XL (TOPROL 14:15: 15:31 DAILY, [place] XL) tablet 00 :50 First dose Med ical 25 mg on Fri Branch 05/28/22 at 0915, Until Discontinu ed, Routine HEPARIN 2021- No 4000U 4,000 Univers SODIUM 05-28 Units, IV ity of (PORCINE) 14:15: 15:21 Push, [place] 1,000 00 :00 ONCE, 1 Medical UNIT/ML dose, On Branch BOLUS ACS Fri ORDER SET 05/28/22 at 0915, MARCELA heparin 2021- No 3000U FOR Univers (1,000 05-28 REBOLUSING ity of unit/mL, 10 14:07: 15:39 , Starting [place] mL vial) 47 :56 on Fri Medical for 05/28/22 at Branch Rebolusing 0907, Until 05/29/22 at 1039, Routine
Dosing based on aPPT testing parameters (refer to continuous heparin drip order).
heparin 2021- No 1000U/h 1,000 Unive rs 25,000 05-28 Units/hr ity of Units/250 14:07: 15:39 (10 [place] mL 47 :56 mL/hr), IV Medical (Premixed Infusion, Branc h Bag) in TITRATE, 0.45 % NS Parameters in Admin. Instr., Starting on 05/28/22 at 0907
CA UTION - If LMWH given in ER, AVOID bolus and start next dose/drip 12 hrs after ER dosage.&nb sp; M ust program rate using programmab le infusion pump.&nbsp ; Missy ck with the ordering provider first prior to any administra tion should the patient be on existing/a dditional anticoagul ant therapy. Rang e, Dosing and Testing: &nbs p;FOR [facility], [facility], AND [facility] ONLY - aPTT < 35: & nbsp;Bolus 5000 units, increase rate 300 units/hr&n bsp; - aPTT 35-44:&nbs p; Markel reginald 3000 units, increase rate 200 units/hr&n bsp; - aPTT 45-54:&nbs p; In crease rate 100 units/hr&n bsp; - aPTT 55-85:&nbs p; NO CHANGE&nbs p; - aPTT 86-95:&nbs p; De crease rate 100 units/hr&n bsp; - aPTT 96-120:&nb sp; H old 30 minutes, decrease rate 150 units/hr&n bsp; - aPTT > 120:&n bsp; Hold 60 minutes, decrease rate 200 units/hr&n bsp; Check aPTT 6 hours after initiation , then Q6H after every change, aPTT Q12H once therapeuti c levels are reached.&n bsp; &nbs p; __ &n bsp;FOR [facility] ONLY - aPTT < 40: & nbsp;Bolus 5000 units, increase rate 300 units/hr&n bsp; - aPTT 40-49:&nbs p; Markel reginald 3000 units, increase rate 200 units/hr&n bsp; - aPTT 50-59:&nbs p; In crease rate 100 units/hr&a mp;nbsp; - aPTT 60-85:&nbs p; NO CHANGE&nbs p; - aPTT 86-95:&nbs p; De crease rate 100 units/hr&n bsp; - aPTT 96-120:&nb sp; H old 30 minutes, decrease rate 150 units/hr&n bsp; - aPTT > 120: Hold 60 minutes, decrease rate 200 units/hr&n bsp; Check aPTT 6 hours after initiation , then Q6H after every change, aPTT Q12H once therapeuti c levels are reached.&n bsp; DO NOT ADJUST INITIAL BOLUS OR INITIAL INFUSION RATE.
ferrous Yes 325mg 325 mg, Univer s sulfate 05-28 Oral, ity of tablet 325 14:00: DAILY, [place] mg 00 First dose Medical on Tue Branch 05/28/22 at 0900, Until Discontinu ed, Routine ferrous Yes 325mg 325 mg, Univer s sulfate 05-28 Oral, ity of tablet 325 14:00: DAILY, [place] mg 00 First dose Medical on Tue Branch 05/28/22 at 0900, Until Discontinu ed, Routine enoxaparin 2021- No 30mg 30 mg, Univ ers (LOVENOX) 05-28 Subcutaneo ity of injection 14:00: 14:08 us, DAILY, [place] 30 mg 00 :18 First dose Medical on Tue Branch 05/28/22 at 0900, Until Discontinu ed, Routine nicotine 2021- No 1{patch 1 Patch, U nivers (NICODERM) 05-28 } Topical, ity of 14 mg/24 hr 06:00: 17:28 Administer [place] patch 1 00 :33 over 24 Medical Patch Hours, Branch Q24H, First dose on Tue05/28/22 at 0100, Until Discontinu ed, Routine ALPRAZolam 2021- No .25mg 0.25 mg, U nivers (XANAX) 05-28 Oral, ity of tablet 0.25 05:45: 05:12 ONCE, 1 [place] mg 00 :00 dose, On Medical Fri Branch 05/28/22 at 0045, Routine aspirin 2-0 Yes 81mg 81 mg, Univers chewable 9-16 Oral, QAM ity of tablet 81 05:00: WITH [place] mg 00 BREAKFAST, Medical First dose Branch on Tue05/28/22 at 0000, Until Discontinu ed, Routine sennosides 2-0 Yes 8.6mg 8.6 mg, Uni vers (SENOKOT) 9-16 Oral, BID, ity of tablet 8.6 05:00: First dose [place] mg 00 on Tue [facility] 05/28/22 at Branch 0000, Until Discontinu ed, Routine docusate 2022-0 Yes 100mg 100 mg, Unive rs (COLACE) 9-16 Oral, BID, ity o f capsule 100 05:00: First dose [place] mg 00 on Tue [facility] 05/28/22 at Branch 0000, Until Discontinu ed, Routine divalproex 2022-0 Yes 500mg 500 mg, Uni vers (DEPAKOTE) 9-16 Oral, QPM, ity of EC tablet 05:00: First dose [place] 500 mg 00 on Tue [facility] 05/28/22 at Branch 0000, Until Discontinu ed aspirin 2-0 Yes 81mg 81 mg, Univers chewable -16 Oral, QAM ity of tablet 81 05:00: WITH [place] mg 00 BREAKFAST, Medical First dose Branch on Tue05/28/22 at 0000, Until Discontinu ed, Routine sennosides 2-0 Yes 8.6mg 8.6 mg, Uni vers (SENOKOT) 9-16 Oral, BID, ity of tablet 8.6 05:00: First dose [place] mg 00 on Tue [facility] 05/28/22 at Branch 0000, Until Discontinu ed, Routine docusate 2022-0 Yes 100mg 100 mg, Unive rs (COLACE) 9-16 Oral, BID, ity o f capsule 100 05:00: First dose [place] mg 00 on Tue [facility] 05/28/22 at Branch 0000, Until Discontinu ed, Routine divalproex 2022-0 Yes 500mg 500 mg, Uni vers (DEPAKOTE) 9-16 Oral, QPM, ity of EC tablet 05:00: First dose [place] 500 mg 00 on [facility] 05/28/22 at Branch 0000, Until Discontinu ed pantoprazol 2021-0 2022- No 40mg 40 mg, Uni vers e 05-28 Slow IV ity of (PROTONIX) 05:00: 20:04 Push, [place] injection 00 :03 Q12H, Medical 40 mg First dose Branch on 05/28/22 at 0000, Until Discontinu ed morpHINE (2 2021-0 Yes 2mg 2 mg, Slow Univers mg/mL) 05-28 IV Push, ity of injection 2 04:51: Q4HPRN, [place] mg 30 Starting Medical on [place] Branch 05/27/22 at 2351, Until Discontinu ed, Routine, Pain (scale 7-10), Chest pain morpHINE (2 2021-0 Yes 2mg 2 mg, Slow Univers mg/mL) 05-28 IV Push, ity of injection 2 04:51: Q4HPRN, [place] mg 30 Starting Medical on [facility] Branch 05/27/22 at 2351, Until Discontinu ed, Routine, Pain (scale 7-10), Chest pain ondansetron 2021-0 Yes 4mg 4 mg, Slow Univers (ZOFRAN 05-28 IV Push, ity of (PF)) 04:51: Q6HPRN, [place] injection 4 17 Starting Medi laura mg on [facility] Branch 05/27/22 at 2351, Until Discontinu ed, Routine, Nausea and Vomiting (N/V) ondansetron 2021-0 Yes 4mg 4 mg, Slow Univers (ZOFRAN 16 IV Push, ity of (PF)) 04:51: Q6HPRN, [place] injection 4 17 Starting Medi laura mg on [facility] Branch 05/27/22 at 2351, Until Discontinu ed, Routine, Nausea and Vomiting (N/V) aspirin 2-0 202- No 324mg 324 mg, Unive rs chewable 05-28 Oral, ity of tablet 324 01:15: 00:10 ONCE, 1 [place] mg 00 :00 dose, On Medical [facility] Branch 05/27/22 at 2015, Routine famotidine 202-0 202- No 20mg 20 mg, Univ ers (PEPCID 05-28 Slow IV ity of (PF)) 00:30: 23:50 Push, [place] injection 00 :00 ONCE, 1 Medical 20 mg dose, On Branch [place] 05/27/22 at 1930, Routine maalox:diph 2021-0 2021- No 15mL 15 mL, Uni vers enhydrAMINE 05-27 Oral, ity of :lidocaine 23:30: 23:50 ONCE, 1 [place] 2 % viscous 00 :00 dose, On Medi laura 1:1:1 [place] Branch ([facility] 05/27/[address] 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, 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, 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, kg, 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, 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 propranolol Yes 60 mg = 1 M emoria 60 mg oral 3-11 cap, PO, l capsule, 16:31: Daily, # Ariana nn extended 00 30 cap, 3 release Refill(s), Pharmacy: [facility] #[id number], 156.21, cm, 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, 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, kg, 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, 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 24 HR 2022-0 Yes 500 mg = 1 Memori a Divalproex 3-11 tab, PO, l Sodium 500 16:31: Bedtime, # H ermann MG Extended 00 30 tab, 3 Release Refill(s), Tablet Pharmacy: [Depakote] [facility] #[id number], 156.21, cm, 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, 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, 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, kg, 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, Weight propranolol 2-0 Yes 60 mg = 1 M emoria 60 mg oral 3-11 cap, PO, l capsule, 16:31: Daily, # Ariana nn extended 00 30 cap, 3 release Refill(s), Pharmacy: [facility] #[id number], 156.21, cm, 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, 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, 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, kg, 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, Weight 24 HR 2-0 Yes 500 mg = 1 Memori a Divalproex 3-11 tab, PO, l Sodium 500 16:31: Bedtime, # H ermann MG Extended 00 30 tab, 3 Release Refill(s), Tablet Pharmacy: [Depakote] [facility] #[id number], 156.21, cm, 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, 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, 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, kg, 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, 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 propranolol 2022-0 Yes 60 mg = 1 M emoria 60 mg oral 3-11 cap, PO, l capsule, 16:31: Daily, # Ariana nn extended 00 30 cap, 3 release Refill(s), Pharmacy: [facility] #[id number], 156.21, cm, 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, 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, 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, kg, 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, Weight 24 HR 2022-0 Yes 500 mg = 1 Memori a Divalproex 3-11 tab, PO, l Sodium 500 16:31: Bedtime, # H ermann MG Extended 00 30 tab, 3 Release Refill(s), Tablet Pharmacy: [Depakote] [email or web address] #[id number], 156.21, cm, 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, Height, 117.273, kg, 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, Weight propranolol 2022-0 Yes 60 mg = 1 M emoria 60 mg oral 3-11 cap, PO, l capsule, 16:31: Daily, # Ariana nn extended 00 30 cap, 3 release Refill(s), Pharmacy: [email or web address] #[id number], 156.21, cm, 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, 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, 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, kg, 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, Weight 24 HR 2022-0 Yes 500 mg = 1 Memori a Divalproex 3-11 tab, PO, l Sodium 500 16:31: Bedtime, # H ermann MG Extended 00 30 tab, 3 Release Refill(s), Tablet Pharmacy: [Depakote] [id number], 156.21, cm, 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, Height, 117.273, kg, 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, 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 propranolol 2022-0 Yes 60 mg = 1 M emoria 60 mg oral 3-11 cap, PO, l capsule, 16:31: Daily, # Ariana nn extended 00 30 cap, 3 release Refill(s), Pharmacy: [facility] #[id number], 156.21, cm, 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, 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, 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, kg, 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, Weight 24 HR 2022-0 Yes 500 mg = 1 Memori a Divalproex 3-11 tab, PO, l Sodium 500 16:31: Bedtime, # H ermann MG Extended 00 30 tab, 3 Release Refill(s), Tablet Pharmacy: [Depakote] [email or web address] k[facility] #[id number], 156.21, cm, 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, Height, 117.273, kg, 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273, kg, 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, Weight propranolol 2022-0 Yes 60 mg = 1 M emoria 60 mg oral 3-11 cap, PO, l capsule, 16:31: Daily, # Ariana nn extended 00 30 cap, 3 release Refill(s), Pharmacy: [email or web address] #[id number], 156.21, cm, 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, Height, 117.273, kg, 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, Weight 24 HR 2022-0 Yes 500 mg = 1 Memori a Divalproex 3-11 tab, PO, l Sodium 500 16:31: Bedtime, # H ermann MG Extended 00 30 tab, 3 Release Refill(s), Tablet Pharmacy: [Depakote] [email or web address] #[id number], 156.21, cm, 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, Height, 117.273, kg, 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, Weight propranolol 2022-0 Yes 60 mg = 1 M emoria 60 mg oral 3-11 cap, PO, l capsule, 16:31: Daily, # Ariana nn extended 00 30 cap, 3 release Refill(s), Pharmacy: [email or web address] #[id number], 156.21, cm, 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, Height, 117.273, kg, 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, Weight 24 HR 2021-0 Yes 500 mg = 1 Memori a Divalproex 3-11 tab, PO, l Sodium 500 16:31: Bedtime, # H ermann MG Extended 00 30 tab, 3 Release Refill(s), Tablet Pharmacy: [Depakote] [facility] k[facility] #[id number], 156.21, cm, 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, Height, 117.273, kg, 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, Weight propranolol 2021-0 Yes 60 mg = 1 M emoria 60 mg oral 3-11 cap, PO, l capsule, 16:31: Daily, # Ariana nn extended 00 30 cap, 3 release Refill(s), Pharmacy: [facility] #[id number], 156.21, cm, 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, Height, 117.273, kg, 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, Weight 24 HR 2021-0 Yes 500 mg = 1 Memori a Divalproex 3-11 tab, PO, l Sodium 500 16:31: Bedtime, # H ermann MG Extended 00 30 tab, 3 Release Refill(s), Tablet Pharmacy: [Depakote] [facility] #[id number], 156.21, cm, 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21, cm, 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, Height, 117.273, kg, 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, Weight propranolol 2021-0 Yes 60 mg = 1 M emoria 60 mg oral 3-11 cap, PO, l capsule, 16:31: Daily, # Ariana nn extended 00 30 cap, 3 release Refill(s), Pharmacy: [facility] #[id number], 156.21, cm, 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, Height, 117.273, kg, 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, Weight 24 HR 0 Yes 500 mg = 1 Memori a Divalproex 3-11 tab, PO, l Sodium 500 16:31: Bedtime, # H ermann MG Extended 00 30 tab, 3 Release Refill(s), [facility] #[id number], 156.21, cm, 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, Height, 117.273, kg, 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, Weight Effexor XR 2021-0 No 37.5 mg = Me moria 37.5 mg 3-09 1 cap, PO, l oral 17:14: Daily, # Rustam capsule, 00 90 cap, 3 extended Refill(s), release Pharmacy: [facility] #[id number], 154.94, cm, 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, Height, 116.364, kg, 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, Weight Effexor XR 2021-0 No 37.5 mg = Me moria 37.5 mg 3-09 1 cap, PO, l oral 17:14: Daily, # [place] capsule, 00 90 cap, 3 extended Refill(s), release Pharmacy: [facility] #[id number], 154.94, cm, 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, Height, 116.364, kg, 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, Weight Effexor XR 2022-0 No 37.5 mg = Me moria 37.5 mg 3-09 1 cap, PO, l oral 17:14: Daily, # Rustam capsule, 00 90 cap, 3 extended Refill(s), release Pharmacy: [email or web address] #[id number], 154.94, cm, 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, Height, 116.364, kg, 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, Weight Effexor XR 2022-0 No 37.5 mg = Me moria 37.5 mg 3-09 1 cap, PO, l oral 17:14: Daily, # [place] capsule, 00 90 cap, 3 extended Refill(s), release Pharmacy: [email or web address] #[id number], 154.94, cm, 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, Height, 116.364, kg, 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, Weight Effexor XR 2022-0 No 37.5 mg = Me moria 37.5 mg 3-09 1 cap, PO, l oral 17:14: Daily, # Rustam capsule, 00 90 cap, 3 extended Refill(s), release Pharmacy: [email or web address] #[id number], 154.94, cm, 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, Height, 116.364, kg, 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, Weight Effexor XR 2022-0 No 37.5 mg = Me moria 37.5 mg 3-09 1 cap, PO, l oral 17:14: Daily, # Rustam capsule, 00 90 cap, 3 extended Refill(s), release Pharmacy: [email or web address] cy #[id number], 154.94, cm, 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, Height, 116.364, kg, 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, Weight Effexor XR 2022-0 No 37.5 mg = Me moria 37.5 mg 3-09 1 cap, PO, l oral 17:14: Daily, # [place] capsule, 00 90 cap, 3 extended Refill(s), release Pharmacy: [facility] #[id number], 154.94, cm, 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, Height, 116.364, kg, 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, Weight Effexor XR 2022-0 No 37.5 mg = Me moria 37.5 mg 3-09 1 cap, PO, l oral 17:14: Daily, # [place] capsule, 00 90 cap, 3 extended Refill(s), release Pharmacy: [email or web address] #[id number], 154.94, cm, 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, 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, 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, kg, 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, Weight Effexor XR 2022-0 No 37.5 mg = Me moria 37.5 mg 3-09 1 cap, PO, l oral 17:14: Daily, # [place] capsule, 00 90 cap, 3 extended Refill(s), release Pharmacy: [email or web address] cy #[id number], 154.94, cm, 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, 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, 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, kg, 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, 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 Effexor XR 2022-0 No 37.5 mg = Me moria 37.5 mg 3-09 1 cap, PO, l oral 17:14: Daily, # [place] capsule, 00 90 cap, 3 extended Refill(s), release Pharmacy: [email or web address] cy #[id number], 154.94, cm, 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, 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, 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, kg, 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, 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 Effexor XR 2022-0 No 37.5 mg = Me moria 37.5 mg 3-09 1 cap, PO, l oral 17:14: Daily, # [place] capsule, 00 90 cap, 3 extended Refill(s), release Pharmacy: [email or web address] cy #[id number], 154.94, cm, 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, 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, 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, kg, 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, 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 Effexor XR 2022-0 No 37.5 mg = Me moria 37.5 mg 3-09 1 cap, PO, l oral 17:14: Daily, # [place] capsule, 00 90 cap, 3 extended Refill(s), release Pharmacy: [facility] kate #[id number], 154.94, cm, 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, 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, 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, kg, 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, Weight Effexor XR 2022-0 No 37.5 mg = Me moria 37.5 mg 3-09 1 cap, PO, l oral 17:14: Daily, # [place] capsule, 00 90 cap, 3 extended Refill(s), release Pharmacy: [facility] kate #[id number], 154.94, cm, 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, 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, 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, kg, 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, 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 Effexor XR 2022-0 No 37.5 mg = Me moria 37.5 mg 3-07 1 cap, PO, l oral 16:07: Daily, # [place] capsule, 00 90 cap, 3 extended Refill(s), release Pharmacy: [email or web address] #[id number], 154.94, cm, 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, 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, 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, kg, 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, Weight Effexor XR 2022-0 No 37.5 mg = Me moria 37.5 mg 3-07 1 cap, PO, l oral 16:07: Daily, # [place] capsule, 00 90 cap, 3 extended Refill(s), release Pharmacy: [facility] kate #[id number], 154.94, cm, 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, 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, 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, kg, 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, 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 Effexor XR 2022-0 No 37.5 mg = Me moria 37.5 mg 3-07 1 cap, PO, l oral 16:07: Daily, # [place] capsule, 00 90 cap, 3 extended Refill(s), release Pharmacy: [facility] kate #[id number], 154.94, cm, 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, 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, 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, kg, 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, Weight Effexor XR 2022-0 No 37.5 mg = Me moria 37.5 mg 3-07 1 cap, PO, l oral 16:07: Daily, # [place] capsule, 00 90 cap, 3 extended Refill(s), release Pharmacy: [facility] kate #[id number], 154.94, cm, 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, 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, 116.364, kg, 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, Weight Effexor XR 2022-0 No 37.5 mg = Me moria 37.5 mg 3-07 1 cap, PO, l oral 16:07: Daily, # [place] capsule, 00 90 cap, 3 extended Refill(s), release Pharmacy: [email or web address]ate #[id number], 154.94, cm, 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, Height, 116.364, kg, 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, Weight Effexor XR 2022-0 No 37.5 mg = Me moria 37.5 mg 3-07 1 cap, PO, l oral 16:07: Daily, # [place] capsule, 00 90 cap, 3 extended Refill(s), release Pharmacy: [facility] #[id number], 154.94, cm, 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, Height, 116.364, kg, 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, Weight Effexor XR 2022-0 No 37.5 mg = Me moria 37.5 mg 3-07 1 cap, PO, l oral 16:07: Daily, # [place] capsule, 00 90 cap, 3 extended Refill(s), release Pharmacy: [email or web address] kate #[id number], 154.94, cm, 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, Height, 116.364, kg, 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, Weight Effexor XR 2022-0 No 37.5 mg = Me moria 37.5 mg 3-07 1 cap, PO, l oral 16:07: Daily, # [place] capsule, 00 90 cap, 3 extended Refill(s), release Pharmacy: [email or web address] kate #[id number], 154.94, cm, 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, Height, 116.364, kg, 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, Weight Effexor XR 2022-0 No 37.5 mg = Me moria 37.5 mg 3-07 1 cap, PO, l oral 16:07: Daily, # [place] capsule, 00 90 cap, 3 extended Refill(s), release Pharmacy: [facility] kate #[id number], 154.94, cm, 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, Height, 116.364, kg, 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, Weight Effexor XR 2022-0 No 37.5 mg = Me moria 37.5 mg 3-07 1 cap, PO, l oral 16:07: Daily, # [place] capsule, 00 90 cap, 3 extended Refill(s), release Pharmacy: [email or web address]ate #[id number], 154.94, cm, 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, Height, 116.364, kg, 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, Weight Effexor XR 2022-0 No 37.5 mg = Me moria 37.5 mg 3-07 1 cap, PO, l oral 16:07: Daily, # [place] capsule, 00 90 cap, 3 extended Refill(s), release Pharmacy: [email or web address] #[id number], 154.94, cm, 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, Height, 116.364, kg, 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, Weight Effexor XR 2022-0 No 37.5 mg = Me moria 37.5 mg 3-07 1 cap, PO, l oral 16:07: Daily, # [place] capsule, 00 90 cap, 3 extended Refill(s), release Pharmacy: [email or web address]ate #[id number], 154.94, cm, 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, Height, 116.364, kg, 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, Weight Effexor XR 2022-0 No 37.5 mg = Me moria 37.5 mg 3-07 1 cap, PO, l oral 16:07: Daily, # [place] capsule, 00 90 cap, 3 extended Refill(s), release Pharmacy: [email or web address] #[id number], 154.94, cm, 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, Height, 116.364, kg, 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, Weight 24 HR 2021-0 Yes 37.5 mg = Memoria venlafaxine 2-09 1 cap, PO, l 37.5 MG 16:12: Daily, # Sherwin n Extended 00 30 cap, 3 Release Refill(s), Capsule Pharmacy: [Effexor] [facility] #[id number], 154.94, cm, 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, Height, 116.364, kg, 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, Weight 24 HR 0 Yes 37.5 mg = Memoria venlafaxine 2-09 1 cap, PO, l 37.5 MG 16:12: Daily, # Sherwin n Extended 00 30 cap, 3 Release Refill(s), Capsule Pharmacy: [Effexor] [facility] #[id number], 154.94, cm, 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, Height, 116.364, kg, 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, Weight 24 HR 0 Yes 37.5 mg = Memoria venlafaxine 2-09 1 cap, PO, l 37.5 MG 16:12: Daily, # Sherwin n Extended 00 30 cap, 3 Release Refill(s), Capsule Pharmacy: [Effexor] [facility] #[id number], 154.94, cm, 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, Height, 116.364, kg, 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, Weight 24 HR 0 Yes 37.5 mg = Memoria venlafaxine 2-09 1 cap, PO, l 37.5 MG 16:12: Daily, # Sherwin n Extended 00 30 cap, 3 Release Refill(s), Capsule Pharmacy: [Effexor] [facility] #[id number], 154.94, cm, 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, Height, 116.364, kg, 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, Weight 24 HR 0 Yes 37.5 mg = Memoria venlafaxine 2-09 1 cap, PO, l 37.5 MG 16:12: Daily, # Sherwin n Extended 00 30 cap, 3 Release Refill(s), Capsule Pharmacy: [Effexor] [facility] #[id number], 154.94, cm, 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, Height, 116.364, kg, 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, Weight 24 HR 2021-0 Yes 37.5 mg = Memoria venlafaxine 2-09 1 cap, PO, l 37.5 MG 16:12: Daily, # Sherwin n Extended 00 30 cap, 3 Release Refill(s), Capsule Pharmacy: [Effexor] [facility] #[id number], 154.94, cm, 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, Height, 116.364, kg, 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, Weight 24 HR 2021-0 Yes 37.5 mg = Memoria venlafaxine 2-09 1 cap, PO, l 37.5 MG 16:12: Daily, # Sherwin n Extended 00 30 cap, 3 Release Refill(s), Capsule Pharmacy: [Effexor] [facility] #[id number], 154.94, cm, 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, Height, 116.364, kg, 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, Weight 24 HR 2021-0 Yes 37.5 mg = Memoria venlafaxine 2-09 1 cap, PO, l 37.5 MG 16:12: Daily, # Sher[place] n Extended 00 30 cap, 3 Release Refill(s), Capsule Pharmacy: [Effexor] [facility] #[id number], 154.94, cm, 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, Height, 116.364, kg, 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, Weight 24 HR 2021-0 Yes 37.5 mg = Memoria venlafaxine 2-09 1 cap, PO, l 37.5 MG 16:12: Daily, # Sherwin n Extended 00 30 cap, 3 Release Refill(s), Capsule Pharmacy: [Effexor] [facility] #[id number], 154.94, cm, 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, Height, 116.364, kg, 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, Weight 24 HR 2022-0 Yes 37.5 mg = Memoria venlafaxine 2-09 1 cap, PO, l 37.5 MG 16:12: Daily, # Sherwin n Extended 00 30 cap, 3 Release Refill(s), Capsule Pharmacy: [Effexor] [email or web address] #[id number], 154.94, cm, 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, Height, 116.364, kg, 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, Weight 24 HR 0 Yes 37.5 mg = Memoria venlafaxine 2-09 1 cap, PO, l 37.5 MG 16:12: Daily, # Sherwin n Extended 00 30 cap, 3 Release Refill(s), Capsule Pharmacy: [Effexor] [email or web address] #[id number], 154.94, cm, 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, Height, 116.364, kg, 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, Weight 24 HR 0 Yes 37.5 mg = Memoria venlafaxine 2-09 1 cap, PO, l 37.5 MG 16:12: Daily, # Sherwin n Extended 00 30 cap, 3 Release Refill(s), Capsule Pharmacy: [Effexor] [facility] #[id number], 154.94, cm, 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, Height, 116.364, kg, 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, Weight 24 HR 0 Yes 37.5 mg = Memoria venlafaxine 2-09 1 cap, PO, l 37.5 MG 16:12: Daily, # Sherwin n Extended 00 30 cap, 3 Release Refill(s), Capsule Pharmacy: [Effexor] [email or web address] #[id number], 154.94, cm, 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, Height, 116.364, kg, 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, Weight atorvastati 2020-09 Yes = 1 tab, Me moria n 40 mg 2-29 PO, l oral tablet 19:13: Bedtime, # Rustam 00 30 tab, 3 Refill(s), Pharmacy: [facility] [id number], 154.94, cm, 09/08/21 9:56: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, Height, 116.364, kg, 09/08/21 9:56: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, Weight atorvastati 2020-09 Yes = 1 tab, Me moria n 40 mg 2-29 PO, l oral tablet 19:13: Bedtime, # [place] 00 30 tab, 3 Refill(s), Pharmacy: [facility] [id number], 154.94, cm, 09/08/21 9:56: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, Height, 116.364, kg, 09/08/21 9:56: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, Weight 24 HR 2020-09 No 500 mg = 1 Memori a Divalproex 2-29 tab, PO, l Sodium 500 19:07: Bedtime, # H ermann MG Extended 00 90 tab, 3 Release Refill(s), Tablet Pharmacy: [Depakote] [email or web address] #[id number], 154.94, cm, 09/08/21 9:56: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, Height, 116.364, kg, 09/08/21 9:56: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, Weight 24 HR 2020-09 No 500 mg = 1 Memori a Divalproex 2-29 tab, PO, l Sodium 500 19:07: Bedtime, # H ermann MG Extended 00 90 tab, 3 Release Refill(s), Tablet Pharmacy: [Depakote] [facility] #[id number], 154.94, cm, 09/08/21 9:56: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, Height, 116.364, kg, 09/08/21 9:56: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, Weight 24 HR 2020-09 No 500 mg = 1 Memori a Divalproex 2-29 tab, PO, l Sodium 500 19:07: Bedtime, # H ermann MG Extended 00 90 tab, 3 Release Refill(s), Tablet Pharmacy: [Depakote] [email or web address] #[id number], 154.94, cm, 09/08/21 9:56: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, Height, 116.364, kg, 09/08/21 9:56: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, Weight 24 HR 2020-09 No 500 mg = 1 Memori a Divalproex 2-29 tab, PO, l Sodium 500 19:07: Bedtime, # H ermann MG Extended 00 90 tab, 3 Release Refill(s), Tablet Pharmacy: [Depakote] [facility] #[id number], 154.94, cm, 09/08/21 9:56: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, Height, 116.364, kg, 09/08/21 9:56: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, Weight 24 HR 2020-09 No 500 mg = 1 Memori a Divalproex 2-29 tab, PO, l Sodium 500 19:07: Bedtime, # H ermann MG Extended 00 90 tab, 3 Release Refill(s), Tablet Pharmacy: [Depakote] [facility] #[id number], 154.94, cm, 09/08/21 9:56: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, Height, 116.364, kg, 09/08/21 9:56: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, Weight 24 HR 2020-09 No 500 mg = 1 Memori a Divalproex 2-29 tab, PO, l Sodium 500 19:07: Bedtime, # H ermann MG Extended 00 90 tab, 3 Release Refill(s), Tablet Pharmacy: [Depakote] [facility] #[id number], 154.94, cm, 09/08/21 9:56: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, Height, 116.364, kg, 09/08/21 9:56: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, Weight 24 HR 2020-09 No 500 mg = 1 Memori a Divalproex 2-29 tab, PO, l Sodium 500 19:07: Bedtime, # H ermann MG Extended 00 90 tab, 3 Release Refill(s), Tablet Pharmacy: [Depakote] [facility] #[id number], 154.94, cm, 09/08/21 9:56: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, Height, 116.364, kg, 09/08/21 9:56: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, Weight 24 HR 2020-09 No 500 mg = 1 Memori a Divalproex 2-29 tab, PO, l Sodium 500 19:07: Bedtime, # H ermann MG Extended 00 90 tab, 3 Release Refill(s), Tablet Pharmacy: [Depakote] [facility] #[id number], 154.94, cm, 09/08/21 9:56: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, Height, 116.364, kg, 09/08/21 9:56: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, Weight 24 HR 2020-09 No 500 mg = 1 Memori a Divalproex 2-29 tab, PO, l Sodium 500 19:07: Bedtime, # H ermann MG Extended 00 90 tab, 3 Release Refill(s), Tablet Pharmacy: [Depakote] [facility] #[id number], 154.94, cm, 09/08/21 9:56: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, Height, 116.364, kg, 09/08/21 9:56: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, Weight 24 HR 2020-09 No 500 mg = 1 Memori a Divalproex 2-29 tab, PO, l Sodium 500 19:07: Bedtime, # H ermann MG Extended 00 90 tab, 3 Release Refill(s), Tablet Pharmacy: [Depakote] [facility] #[id number], 154.94, cm, 09/08/21 9:56: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, Height, 116.364, kg, 09/08/21 9:56: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, Weight 24 HR 2020-09 No 500 mg = 1 Memori a Divalproex 2-29 tab, PO, l Sodium 500 19:07: Bedtime, # H ermann MG Extended 00 90 tab, 3 Release Refill(s), Tablet Pharmacy: [Depakote] [facility] #[id number], 154.94, cm, 09/08/21 9:56: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, Height, 116.364, kg, 09/08/21 9:56: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, Weight 24 HR 2020-09 No 500 mg = 1 Memori a Divalproex 2-29 tab, PO, l Sodium 500 19:07: Bedtime, # H ermann MG Extended 00 90 tab, 3 Release Refill(s), Tablet Pharmacy: [Depakote] [facility] #[id number], 154.94, cm, 09/08/21 9:56: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, Height, 116.364, kg, 09/08/21 9:56: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, Weight 24 HR 2020-09 No 500 mg = 1 Memori a Divalproex 2-29 tab, PO, l Sodium 500 19:07: Bedtime, # H ermann MG Extended 00 90 tab, 3 Release Refill(s), Tablet Pharmacy: [Depakote] [facility] #[id number], 154.94, cm, 09/08/21 9:56: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, Height, 116.364, kg, 09/08/21 9:56: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, Weight Docusate 2020-09 Yes 50 mg = 1 Catrachito darlin Sodium 50 1-16 cap, PO, l MG Oral 16:14: BID, 0 [place] Capsule 00 Refill(s) [Colace] Docusate 2020-09 Yes 50 mg = 1 Catrachito darlin Sodium 50 1-16 cap, PO, l MG Oral 16:14: BID, 0 [place] Capsule 00 Refill(s) [Colace] Docusate 2020-09 Yes 50 mg = 1 Catrachito darlin Sodium 50 1-16 cap, PO, l MG Oral 16:14: BID, 0 [place] Capsule 00 Refill(s) [Colace] Docusate 2020-09 Yes 50 mg = 1 Catrachito darlin Sodium 50 1-16 cap, PO, l MG Oral 16:14: BID, 0 [place] Capsule 00 Refill(s) [Colace] Docusate 2020-09 Yes 50 mg = 1 Catrachito darlin Sodium 50 1-16 cap, PO, l MG Oral 16:14: BID, 0 [place] Capsule 00 Refill(s) [Colace] Docusate 2020-09 Yes 50 mg = 1 Catrachito darlin Sodium 50 1-16 cap, PO, l MG Oral 16:14: BID, 0 [place] Capsule 00 Refill(s) [Colace] Docusate 2020-09 Yes 50 mg = 1 Catrachito darlin Sodium 50 1-16 cap, PO, l MG Oral 16:14: BID, 0 [place] Capsule 00 Refill(s) [Colace] Docusate 2020-09 Yes 50 mg = 1 Catrachito darlin Sodium 50 1-16 cap, PO, l MG Oral 16:14: BID, 0 [place] Capsule 00 Refill(s) [Colace] Docusate 2020-09 Yes 50 mg = 1 Catrachito darlin Sodium 50 1-16 cap, PO, l MG Oral 16:14: BID, 0 [place] Capsule 00 Refill(s) [Colace] Docusate 2020-09 Yes 50 mg = 1 Catrachito darlin Sodium 50 1-16 cap, PO, l MG Oral 16:14: BID, 0 [place] Capsule 00 Refill(s) [Colace] Docusate 2020-09 Yes 50 mg = 1 Catrachito darlin Sodium 50 1-16 cap, PO, l MG Oral 16:14: BID, 0 [place] Capsule 00 Refill(s) [Colace] Docusate 2020-09 Yes 50 mg = 1 Catrachito darlin Sodium 50 1-16 cap, PO, l MG Oral 16:14: BID, 0 [place] Capsule 00 Refill(s) [Colace] Docusate 2020-09 Yes 50 mg = 1 Catrachito darlin Sodium 50 1-16 cap, PO, l MG Oral 16:14: BID, 0 [place] Capsule 00 Refill(s) [Colace] Ofloxacin 3 2020-09 Yes 2 drp, Catrachito darlin MG/ML 1-04 BOTH EYES, l Ophthalmic 15:20: QID, X 7 Her lacy Solution 00 day, # 5 ml, 0 Refill(s), Pharmacy: [facility] #[id number], 154.94, cm, 07/14/21 13:06:00 CDT, Height, 115.818, kg, 07/14/21 13:06:00 CDT, Weight Ofloxacin 3 2020-09 Yes 2 drp, Catrachito darlin MG/ML 1-04 BOTH EYES, l Ophthalmic 15:20: QID, X 7 Her lacy Solution 00 day, # 5 ml, 0 Refill(s), Pharmacy: [facility] #[id number], 154.94, cm, 07/14/21 13:06:00 CDT, Height, 115.818, kg, 07/14/21 13:06:00 CDT, Weight Ofloxacin 3 2020-09 Yes 2 drp, Catrachito darlin MG/ML 1-04 BOTH EYES, l Ophthalmic 15:20: QID, X 7 Her lacy Solution 00 day, # 5 ml, 0 Refill(s), Pharmacy: [facility] #[id number], 154.94, cm, 07/14/21 13:06:00 CDT, Height, 115.818, kg, 07/14/21 13:06:00 CDT, Weight Ofloxacin 3 2020-09 Yes 2 drp, Catrachito darlin MG/ML 1-04 BOTH EYES, l Ophthalmic 15:20: QID, X 7 Her lacy Solution 00 day, # 5 ml, 0 Refill(s), Pharmacy: [facility] #[id number], 154.94, cm, 07/14/21 13:06:00 CDT, Height, 115.818, kg, 07/14/21 13:06:00 CDT, Weight Ofloxacin 3 2020-09 Yes 2 drp, Catrachito darlin MG/ML 1-04 BOTH EYES, l Ophthalmic 15:20: QID, X 7 Her lacy Solution 00 day, # 5 ml, 0 Refill(s), Pharmacy: [id number], 154.94, cm, 07/14/21 13:06:00 CDT, Height, 115.818, kg, 07/14/21 13:06:00 CDT, Weight Ofloxacin 3 2020-09 Yes 2 drp, Catrachito darlin MG/ML 1-04 BOTH EYES, l Ophthalmic 15:20: QID, X 7 Her lacy Solution 00 day, # 5 ml, 0 Refill(s), Pharmacy: [id number], 154.94, cm, 07/14/21 13:06:00 CDT, Height, 115.818, kg, 07/14/21 13:06:00 CDT, Weight Ofloxacin 3 2020-09 Yes 2 drp, Catrachito darlin MG/ML 1-04 BOTH EYES, l Ophthalmic 15:20: QID, X 7 Her lacy Solution 00 day, # 5 ml, 0 Refill(s), Pharmacy: [id number], 154.94, cm, 07/14/21 13:06:00 CDT, Height, 115.818, kg, 07/14/21 13:06:00 CDT, Weight Ofloxacin 3 2020-09 Yes 2 drp, Catrachito darlin MG/ML 1-04 BOTH EYES, l Ophthalmic 15:20: QID, X 7 Her lacy Solution 00 day, # 5 ml, 0 Refill(s), Pharmacy: [id number], 154.94, cm, 07/14/21 13:06:00 CDT, Height, 115.818, kg, 07/14/21 13:06:00 CDT, Weight Ofloxacin 3 2020-09 Yes 2 drp, Catrachito darlin MG/ML 1-04 BOTH EYES, l Ophthalmic 15:20: QID, X 7 Her lacy Solution 00 day, # 5 ml, 0 Refill(s), Pharmacy: [facility] #[id number], 154.94, cm, 07/14/21 13:06:00 CDT, Height, 115.818, kg, 07/14/21 13:06:00 CDT, Weight Ofloxacin 3 2020-09 Yes 2 drp, Catrachito darlin MG/ML 1-04 BOTH EYES, l Ophthalmic 15:20: QID, X 7 Her lacy Solution 00 day, # 5 ml, 0 Refill(s), Pharmacy: [facility] #[id number], 154.94, cm, 07/14/21 13:06:00 CDT, Height, 115.818, kg, 07/14/21 13:06:00 CDT, Weight Ofloxacin 3 2020-09 Yes 2 drp, Catrachito darlin MG/ML 1-04 BOTH EYES, l Ophthalmic 15:20: QID, X 7 Her lacy Solution 00 day, # 5 ml, 0 Refill(s), Pharmacy: [facility] #[id number], 154.94, cm, 07/14/21 13:06:00 CDT, Height, 115.818, kg, 07/14/21 13:06:00 CDT, Weight Ofloxacin 3 2020-09 Yes 2 drp, Catrachito darlin MG/ML 1-04 BOTH EYES, l Ophthalmic 15:20: QID, X 7 Her lacy Solution 00 day, # 5 ml, 0 Refill(s), Pharmacy: [facility] #[id number], 154.94, cm, 07/14/21 13:06:00 CDT, Height, 115.818, kg, 07/14/21 13:06:00 CDT, Weight Ofloxacin 3 2020-09 Yes 2 drp, Catrachito darlin MG/ML 1-04 BOTH EYES, l Ophthalmic 15:20: QID, X 7 Her lacy Solution 00 day, # 5 ml, 0 Refill(s), Pharmacy: [facility] #[id number], 154.94, cm, 07/14/21 13:06:00 CDT, Height, 115.818, kg, 07/14/21 13:06:00 CDT, Weight pantoprazol 2020-09 Yes = 1 tab, Me moria e 40 mg 1-02 PO, Daily, l oral 18:18: # 90 tab, [place] [facility] 00 3 coated Refill(s), tablet Pharmacy: [facility] #[id number], 154.94, cm, 07/14/21 13:06:00 CDT, Height, 115.818, kg, 07/14/21 13:06:00 CDT, Weight pantoprazol 2020-09 Yes = 1 tab, Me moria e 40 mg 1-02 PO, Daily, l oral 18:18: # 90 tab, [place] [facility] 00 3 coated Refill(s), tablet Pharmacy: [facility] #[id number], 154.94, cm, 07/14/21 13:06:00 CDT, Height, 115.818, kg, 07/14/21 13:06:00 CDT, Weight pantoprazol 2020-09 Yes = 1 tab, Me moria e 40 mg 1-02 PO, Daily, l oral 18:18: # 90 tab, [place] [facility] 00 3 coated Refill(s), tablet Pharmacy: [facility] #[id number], 154.94, cm, 07/14/21 13:06:00 CDT, Height, 115.818, kg, 07/14/21 13:06:00 CDT, Weight pantoprazol 2020-09 Yes = 1 tab, Me moria e 40 mg 1-02 PO, Daily, l oral 18:18: # 90 tab, [place] [facility] 00 3 coated Refill(s), tablet Pharmacy: [facility] k[facility] #[id number], 154.94, cm, 07/14/21 13:06:00 CDT, Height, 115.818, kg, 07/14/21 13:06:00 CDT, Weight pantoprazol 2020-09 Yes = 1 tab, Me moria e 40 mg 1-02 PO, Daily, l oral 18:18: # 90 tab, [place] [facility] 00 3 coated Refill(s), tablet Pharmacy: [facility] #[id number], 154.94, cm, 07/14/21 13:06:00 CDT, Height, 115.818, kg, 07/14/21 13:06:00 CDT, Weight pantoprazol 2020-09 Yes = 1 tab, Me moria e 40 mg 1-02 PO, Daily, l oral 18:18: # 90 tab, [place] [facility] 00 3 coated Refill(s), tablet Pharmacy: [facility] k[facility] #[id number], 154.94, cm, 07/14/21 13:06:00 CDT, Height, 115.818, kg, 07/14/21 13:06:00 CDT, Weight pantoprazol 2020-09 Yes = 1 tab, Me moria e 40 mg 1-02 PO, Daily, l oral 18:18: # 90 tab, [place] [facility] 00 3 coated Refill(s), tablet Pharmacy: [facility] k[facility] #[id number], 154.94, cm, 07/14/21 13:06:00 CDT, Height, 115.818, kg, 07/14/21 13:06:00 CDT, Weight pantoprazol 2020-09 Yes = 1 tab, Me moria e 40 mg 1-02 PO, Daily, l oral 18:18: # 90 tab, [place] [facility] 00 3 coated Refill(s), tablet Pharmacy: [facility] k[facility] #[id number], 154.94, cm, 07/14/21 13:06:00 CDT, Height, 115.818, kg, 07/14/21 13:06:00 CDT, Weight pantoprazol 2020-09 Yes = 1 tab, Me moria e 40 mg 1-02 PO, Daily, l oral 18:18: # 90 tab, [place] [facility] 00 3 coated Refill(s), tablet Pharmacy: [facility] #[id number], 154.94, cm, 07/14/21 13:06:00 CDT, Height, 115.818, kg, 07/14/21 13:06:00 CDT, Weight pantoprazol 2020-09 Yes = 1 tab, Me moria e 40 mg 1-02 PO, Daily, l oral 18:18: # 90 tab, [place] [facility] 00 3 coated Refill(s), tablet Pharmacy: [facility] #[id number], 154.94, cm, 07/14/21 13:06:00 CDT, Height, 115.818, kg, 07/14/21 13:06:00 CDT, Weight pantoprazol 2020-09 Yes = 1 tab, Me moria e 40 mg 1-02 PO, Daily, l oral 18:18: # 90 tab, [place] [facility] 00 3 coated Refill(s), tablet Pharmacy: [facility] #[id number], 154.94, cm, 07/14/21 13:06:00 CDT, Height, 115.818, kg, 07/14/21 13:06:00 CDT, Weight pantoprazol 2020-09 Yes = 1 tab, Me moria e 40 mg 1-02 PO, Daily, l oral 18:18: # 90 tab, [place] [facility] 00 3 coated Refill(s), tablet Pharmacy: [facility] #[id number], 154.94, cm, 07/14/21 13:06:00 CDT, Height, 115.818, kg, 07/14/21 13:06:00 CDT, Weight pantoprazol 2020-09 Yes = 1 tab, Me moria e 40 mg 1-02 PO, Daily, l oral 18:18: # 90 tab, [place] [facility] 00 3 coated Refill(s), tablet Pharmacy: [facility] #[id number], 154.94, cm, 07/14/21 13:06:00 CDT, Height, 115.818, kg, 07/14/21 13:06:00 CDT, Weight Iron-150 2020-09 Yes 1 tab, PO, Mem oria oral tablet 0-18 Daily, 0 l 16:23: Refill(s) [place] Iron-150 2020-09 Yes 1 tab, PO, Mem oria oral tablet 0-18 Daily, 0 l 16:23: Refill(s) [place] Iron-150 2020-09 Yes 1 tab, PO, Mem oria oral tablet 0-18 Daily, 0 l 16:23: Refill(s) [place] Iron-150 2020-09 Yes 1 tab, PO, Mem oria oral tablet 0-18 Daily, 0 l 16:23: Refill(s) [place] Iron-150 2020-09 Yes 1 tab, PO, Mem oria oral tablet 0-18 Daily, 0 l 16:23: Refill(s) [place] Iron-150 2020-09 Yes 1 tab, PO, Mem oria oral tablet 0-18 Daily, 0 l 16:23: Refill(s) Iron-150 2020-09 Yes 1 tab, PO, Mem oria oral tablet 0-18 Daily, 0 l 16:23: Refill(s) Iron-150 2020-09 Yes 1 tab, PO, Mem oria oral tablet 0-18 Daily, 0 l 16:23: Refill(s) Iron-150 2020-09 Yes 1 tab, PO, Mem oria oral tablet 0-18 Daily, 0 l 16:23: Refill(s) Iron-150 2020-09 Yes 1 tab, PO, Mem oria oral tablet 0-18 Daily, 0 l 16:23: Refill(s) Iron-150 2020-09 Yes 1 tab, PO, Mem oria oral tablet 0-18 Daily, 0 l 16:23: Refill(s) Iron-150 2020-09 Yes 1 tab, PO, Mem oria oral tablet 0-18 Daily, 0 l 16:23: Refill(s) Iron-150 2020-09 Yes 1 tab, PO, Mem oria oral tablet 0-18 Daily, 0 l 16:23: Refill(s) atorvastati Yes 40 mg = 1 M emoria n 40 mg 9-24 tab, PO, l oral tablet 15:46: Bedtime, # [place] 00 30 tab, 3 Refill(s), Pharmacy: [email or web address] #[id number], 152.4, cm, 06/05/21 10:14:00 CDT, Height, 116.818, kg, 06/05/21 10:14:00 CDT, Weight atorvastati Yes 40 mg = 1 M emoria n 40 mg 9-24 tab, PO, l oral tablet 15:46: Bedtime, # [place] 00 30 tab, 3 Refill(s), Pharmacy: [email or web address] #[id number], 152.4, cm, 06/05/21 10:14:00 CDT, Height, 116.818, kg, 06/05/21 10:14:00 CDT, Weight atorvastati Yes 40 mg = 1 M emoria n 40 mg 9-24 tab, PO, l oral tablet 15:46: Bedtime, # [place] 00 30 tab, 3 Refill(s), Pharmacy: [facility] #[id number], 152.4, cm, 06/05/21 10:14:00 CDT, Height, 116.818, kg, 06/05/21 10:14:00 CDT, Weight atorvastati 2020-0 Yes 40 mg = 1 M emoria n 40 mg 9-24 tab, PO, l oral tablet 15:46: Bedtime, # [place] 00 30 tab, 3 Refill(s), Pharmacy: [email or web address] #[id number], 152.4, cm, 06/05/21 10:14:00 CDT, Height, 116.818, kg, 06/05/21 10:14:00 CDT, Weight atorvastati 2020-0 Yes 40 mg = 1 M emoria n 40 mg 9-24 tab, PO, l oral tablet 15:46: Bedtime, # [place] 00 30 tab, 3 Refill(s), Pharmacy: [email or web address] #[id number], 152.4, cm, 06/05/21 10:14:00 CDT, Height, 116.818, kg, 06/05/21 10:14:00 CDT, Weight atorvastati 2020-0 Yes 40 mg = 1 M emoria n 40 mg 9-24 tab, PO, l oral tablet 15:46: Bedtime, # [place] 00 30 tab, 3 Refill(s), Pharmacy: [email or web address] k[facility] #[id number], 152.4, cm, 06/05/21 10:14:00 CDT, Height, 116.818, kg, 06/05/21 10:14:00 CDT, Weight atorvastati 2020-0 Yes 40 mg = 1 M emoria n 40 mg 9-24 tab, PO, l oral tablet 15:46: Bedtime, # [place] 00 30 tab, 3 Refill(s), Pharmacy: [email or web address] #[id number], 152.4, cm, 06/05/21 10:14:00 CDT, Height, 116.818, kg, 06/05/21 10:14:00 CDT, Weight atorvastati 2020-0 Yes 40 mg = 1 M emoria n 40 mg 9-24 tab, PO, l oral tablet 15:46: Bedtime, # [place] 00 30 tab, 3 Refill(s), Pharmacy: [email or web address] #[id number], 152.4, cm, 06/05/21 10:14:00 CDT, Height, 116.818, kg, 06/05/21 10:14:00 CDT, Weight atorvastati 1-0 Yes 40 mg = 1 M emoria n 40 mg 9-24 tab, PO, l oral tablet 15:46: Bedtime, # [place] 00 30 tab, 3 Refill(s), Pharmacy: [email or web address] #[id number], 152.4, cm, 06/05/21 10:14:00 CDT, Height, 116.818, kg, 06/05/21 10:14:00 CDT, Weight atorvastati 2021-0 Yes 40 mg = 1 M emoria n 40 mg 9-24 tab, PO, l oral tablet 15:46: Bedtime, # [place] 00 30 tab, 3 Refill(s), Pharmacy: [facility] #[id number], 152.4, cm, 06/05/21 10:14:00 CDT, Height, 116.818, kg, 06/05/21 10:14:00 CDT, Weight atorvastati 2021-0 Yes 40 mg = 1 M emoria n 40 mg 9-24 tab, PO, l oral tablet 15:46: Bedtime, # [place] 00 30 tab, 3 Refill(s), Pharmacy: [facility] #[id number], 152.4, cm, 06/05/21 10:14:00 CDT, Height, 116.818, kg, 06/05/21 10:14:00 CDT, Weight atorvastati 1-0 Yes 40 mg = 1 M emoria n 40 mg 9-24 tab, PO, l oral tablet 15:46: Bedtime, # [place] 00 30 tab, 3 Refill(s), Pharmacy: [email or web address] #[id number], 152.4, cm, 06/05/21 10:14:00 CDT, Height, 116.818, kg, 06/05/21 10:14:00 CDT, Weight atorvastati Yes 40 mg = 1 M clarya n 40 mg 9-24 tab, PO, l oral tablet 15:46: Bedtime, # [place] 00 30 tab, 3 Refill(s), Pharmacy: [email or web address] #[id number], 152.4, cm, 06/05/21 10:14:00 CDT, Height, 116.818, kg, 06/05/21 10:14:00 CDT, Weight 24 HR Yes 500 mg = 1 Memori a Divalproex 8-17 tab, PO, l Sodium 500 20:40: Bedtime, # [place] MG Extended 00 30 tab, 3 Release Refill(s), Tablet Pharmacy: [Depakote] [email or web address] #[id number], 154.94, cm, 04/28/21 14:17:00 CDT, Height, 114.091, kg, 04/28/21 14:17:00 CDT, Weight 24 HR Yes 500 mg = 1 Memori a Divalproex 8-17 tab, PO, l Sodium 500 20:40: Bedtime, # [place] MG Extended 00 30 tab, 3 Release Refill(s), Tablet Pharmacy: [Depakote] [email or web address] #[id number], 154.94, cm, 04/28/21 14:17:00 CDT, Height, 114.091, kg, 04/28/21 14:17:00 CDT, Weight 24 HR Yes 500 mg = 1 Memori a Divalproex 8-17 tab, PO, l Sodium 500 20:40: Bedtime, # [place] MG Extended 00 30 tab, 3 Release Refill(s), Tablet Pharmacy: [Depakote] [email or web address] #[id number], 154.94, cm, 04/28/21 14:17:00 CDT, Height, 114.091, kg, 04/28/21 14:17:00 CDT, Weight 24 HR Yes 500 mg = 1 Memori a Divalproex 8-17 tab, PO, l Sodium 500 20:40: Bedtime, # [place] MG Extended 00 30 tab, 3 Release Refill(s), Tablet Pharmacy: [Depakote] [email or web address] #[id number], 154.94, cm, 04/28/21 14:17:00 CDT, Height, 114.091, kg, 04/28/21 14:17:00 CDT, Weight 24 HR 0 Yes 500 mg = 1 Memori a Divalproex 8-17 tab, PO, l Sodium 500 20:40: Bedtime, # [place] MG Extended 00 30 tab, 3 Release Refill(s), Tablet Pharmacy: [Depakote] [facility] #[id number], 154.94, cm, 04/28/21 14:17:00 CDT, Height, 114.091, kg, 04/28/21 14:17:00 CDT, Weight 24 HR 0 Yes 500 mg = 1 Memori a Divalproex 8-17 tab, PO, l Sodium 500 20:40: Bedtime, # [place] MG Extended 00 30 tab, 3 Release Refill(s), Tablet Pharmacy: [Depakote] [facility] #[id number], 154.94, cm, 04/28/21 14:17:00 CDT, Height, 114.091, kg, 04/28/21 14:17:00 CDT, Weight 24 HR 0 Yes 500 mg = 1 Memori a Divalproex 8-17 tab, PO, l Sodium 500 20:40: Bedtime, # [place] MG Extended 00 30 tab, 3 Release Refill(s), Tablet Pharmacy: [Depakote] [email or web address] #[id number], 154.94, cm, 04/28/21 14:17:00 CDT, Height, 114.091, kg, 04/28/21 14:17:00 CDT, Weight 24 HR 0 Yes 500 mg = 1 Memori a Divalproex 8-17 tab, PO, l Sodium 500 20:40: Bedtime, # [place] MG Extended 00 30 tab, 3 Release Refill(s), Tablet Pharmacy: [Depakote] [email or web address] #[id number], 154.94, cm, 04/28/21 14:17:00 CDT, Height, 114.091, kg, 04/28/21 14:17:00 CDT, Weight 24 HR 2021-0 Yes 500 mg = 1 Memori a Divalproex 8-17 tab, PO, l Sodium 500 20:40: Bedtime, # [place] MG Extended 00 30 tab, 3 Release Refill(s), Tablet Pharmacy: [Depakote] [email or web address] #[id number], 154.94, cm, 04/28/21 14:17:00 CDT, Height, 114.091, kg, 04/28/21 14:17:00 CDT, Weight 24 HR Yes 500 mg = 1 Memori a Divalproex 8-17 tab, PO, l Sodium 500 20:40: Bedtime, # [place] MG Extended 00 30 tab, 3 Release Refill(s), Tablet Pharmacy: [Depakote] [email or web address] #[id number], 154.94, cm, 04/28/21 14:17:00 CDT, Height, 114.091, kg, 04/28/21 14:17:00 CDT, Weight 24 HR Yes 500 mg = 1 Memori a Divalproex 8-17 tab, PO, l Sodium 500 20:40: Bedtime, # [place] MG Extended 00 30 tab, 3 Release Refill(s), Tablet Pharmacy: [Depakote] [email or web address] #[id number], 154.94, cm, 04/28/21 14:17:00 CDT, Height, 114.091, kg, 04/28/21 14:17:00 CDT, Weight 24 HR Yes 500 mg = 1 Memori a Divalproex 8-17 tab, PO, l Sodium 500 20:40: Bedtime, # [place] MG Extended 00 30 tab, 3 Release Refill(s), Tablet Pharmacy: [Depakote] [email or web address] #[id number], 154.94, cm, 04/28/21 14:17:00 CDT, Height, 114.091, kg, 04/28/21 14:17:00 CDT, Weight 24 HR Yes 500 mg = 1 Memori a Divalproex 8-17 tab, PO, l Sodium 500 20:40: Bedtime, # [place] MG Extended 00 30 tab, 3 Release Refill(s), Tablet Pharmacy: [Depakote] [email or web address] #[id number], 154.94, cm, 04/28/21 14:17:00 CDT, Height, 114.091, kg, 04/28/21 14:17:00 CDT, Weight Aspirin 81 2021-0 Yes 81 mg = 1 Me moria MG Enteric 8-17 tab, PO, l Coated 20:39: Daily, # [place] Tablet 00 90 tab, 3 Refill(s), Pharmacy: [facility]ate #[id number], 154.94, cm, 04/28/21 14:17:00 CDT, Height, 114.091, kg, 04/28/21 14:17:00 CDT, Weight aspirin 81 2021-0 Yes 81 mg = 1 Me moria mg tablet, 8-17 tab, PO, l enteric 20:39: Daily, # [place] n coated 00 90 tab, 3 Refill(s), Pharmacy: [facility]ate #[id number], 154.94, cm, 04/28/21 14:17:00 CDT, Height, 114.091, kg, 04/28/21 14:17:00 CDT, Weight Aspirin 81 2021-0 Yes 81 mg = 1 Me moria MG Enteric 8-17 tab, PO, l Coated 20:39: Daily, # [place] Tablet 00 90 tab, 3 Refill(s), Pharmacy: [facility] #[id number], 154.94, cm, 04/28/21 14:17:00 CDT, Height, 114.091, kg, 04/28/21 14:17:00 CDT, Weight aspirin 81 2021-0 Yes 81 mg = 1 Me moria mg tablet, 8-17 tab, PO, l enteric 20:39: Daily, # [place] n coated 00 90 tab, 3 Refill(s), Pharmacy: [facility] #[id number], 154.94, cm, 04/28/21 14:17:00 CDT, Height, 114.091, kg, 04/28/21 14:17:00 CDT, Weight Aspirin 81 2021-0 Yes 81 mg = 1 Me moria MG Enteric 8-17 tab, PO, l Coated 20:39: Daily, # [place] Tablet 00 90 tab, 3 Refill(s), Pharmacy: [facility] #[id number], 154.94, cm, 04/28/21 14:17:00 CDT, Height, 114.091, kg, 04/28/21 14:17:00 CDT, Weight Aspirin 81 2021-0 Yes 81 mg = 1 Me moria MG Enteric 8-17 tab, PO, l Coated 20:39: Daily, # [place] Tablet 00 90 tab, 3 Refill(s), Pharmacy: [facility] #[id number], 154.94, cm, 04/28/21 14:17:00 CDT, Height, 114.091, kg, 04/28/21 14:17:00 CDT, Weight Aspirin 81 1-0 Yes 81 mg = 1 Me moria MG Enteric 8-17 tab, PO, l Coated 20:39: Daily, # [place] Tablet 00 90 tab, 3 Refill(s), Pharmacy: [facility] #[id number], 154.94, cm, 04/28/21 14:17:00 CDT, Height, 114.091, kg, 04/28/21 14:17:00 CDT, Weight Aspirin 81 1-0 Yes 81 mg = 1 Me moria MG Enteric 8-17 tab, PO, l Coated 20:39: Daily, # [place] Tablet 00 90 tab, 3 Refill(s), Pharmacy: [facility] #[id number], 154.94, cm, 04/28/21 14:17:00 CDT, Height, 114.091, kg, 04/28/21 14:17:00 CDT, Weight Aspirin 81 1-0 Yes 81 mg = 1 Me moria MG Enteric 8-17 tab, PO, l Coated 20:39: Daily, # [place] Tablet 00 90 tab, 3 Refill(s), Pharmacy: [facility] #[id number], 154.94, cm, 04/28/21 14:17:00 CDT, Height, 114.091, kg, 04/28/21 14:17:00 CDT, Weight Aspirin 81 2021-0 Yes 81 mg = 1 Me moria MG Enteric 8-17 tab, PO, l Coated 20:39: Daily, # [place] Tablet 00 90 tab, 3 Refill(s), Pharmacy: [facility] #[id number], 154.94, cm, 04/28/21 14:17:00 CDT, Height, 114.091, kg, 04/28/21 14:17:00 CDT, Weight Aspirin 81 1-0 Yes 81 mg = 1 Me moria MG Enteric 8-17 tab, PO, l Coated 20:39: Daily, # [place] Tablet 00 90 tab, 3 Refill(s), Pharmacy: [facility] #[id number], 154.94, cm, 04/28/21 14:17:00 CDT, Height, 114.091, kg, 04/28/21 14:17:00 CDT, Weight Aspirin 81 1-0 Yes 81 mg = 1 Me moria MG Enteric 8-17 tab, PO, l Coated 20:39: Daily, # [place] Tablet 00 90 tab, 3 Refill(s), Pharmacy: [email or web address] #[id number], 154.94, cm, 04/28/21 14:17:00 CDT, Height, 114.091, kg, 04/28/21 14:17:00 CDT, Weight Aspirin 81 2020-0 Yes 81 mg = 1 Me moria MG Enteric 8-17 tab, PO, l Coated 20:39: Daily, # [place] Tablet 00 90 tab, 3 Refill(s), Pharmacy: [facility] #[id number], 154.94, cm, 04/28/21 14:17:00 CDT, Height, 114.091, kg, 04/28/21 14:17:00 CDT, Weight Aspirin 81 1-0 Yes 81 mg = 1 Me moria MG Enteric 8-17 tab, PO, l Coated 20:39: Daily, # [place] Tablet 00 90 tab, 3 Refill(s), Pharmacy: [facility] #[id number], 154.94, cm, 04/28/21 14:17:00 CDT, Height, 114.091, kg, 04/28/21 14:17:00 CDT, Weight Aspirin 81 2021-0 Yes 81 mg = 1 Me moria MG Enteric 8-17 tab, PO, l Coated 20:39: Daily, # [place] Tablet 00 90 tab, 3 Refill(s), Pharmacy: [facility] #[id number], 154.94, cm, 04/28/21 14:17:00 CDT, Height, 114.091, kg, 04/28/21 14:17:00 CDT, Weight atorvastati 2020-0 Yes 40 mg = 1 M emoria n 40 mg 8-10 tab, PO, l oral tablet 20:14: Bedtime, # [place] 00 30 tab, 0 Refill(s) Valproic 2020-0 Yes 250 mg = 1 Mem oria Acid 250 MG 8-10 cap, PO, l Oral 20:14: TID, # 90 [place] Capsule 00 cap, 0 Refill(s) atorvastati 2020-0 Yes 40 mg = 1 M emoria n 40 mg 8-10 tab, PO, l oral tablet 20:14: Bedtime, # [place] 00 30 tab, 0 Refill(s) Valproic 2020-0 Yes 250 mg = 1 Mem oria Acid 250 MG 8-10 cap, PO, l Oral 20:14: TID, # 90 [place] Capsule 00 cap, 0 Refill(s) atorvastati 2020-0 Yes 40 mg = 1 M emoria n 40 mg 8-10 tab, PO, l oral tablet 20:14: Bedtime, # [place] 00 30 tab, 0 Refill(s) Valproic 2020-0 Yes 250 mg = 1 Mem oria Acid 250 MG 8-10 cap, PO, l Oral 20:14: TID, # 90 [place] Capsule 00 cap, 0 Refill(s) atorvastati 2020-0 Yes 40 mg = 1 M emoria n 40 mg 8-10 tab, PO, l oral tablet 20:14: Bedtime, # [place] 00 30 tab, 0 Refill(s) Valproic 2020-0 Yes 250 mg = 1 Mem oria Acid 250 MG 8-10 cap, PO, l Oral 20:14: TID, # 90 [place] Capsule 00 cap, 0 Refill(s) atorvastati 2020-0 Yes 40 mg = 1 M emoria n 40 mg 8-10 tab, PO, l oral tablet 20:14: Bedtime, # [place] 00 30 tab, 0 Refill(s) Valproic 2020-0 Yes 250 mg = 1 Mem oria Acid 250 MG 8-10 cap, PO, l Oral 20:14: TID, # 90 [place] Capsule 00 cap, 0 Refill(s) atorvastati 2020-0 Yes 40 mg = 1 M emoria n 40 mg 8-10 tab, PO, l oral tablet 20:14: Bedtime, # [place] 00 30 tab, 0 Refill(s) Valproic 2020-0 Yes 250 mg = 1 Mem oria Acid 250 MG 8-10 cap, PO, l Oral 20:14: TID, # 90 [place] Capsule 00 cap, 0 Refill(s) atorvastati 2020-0 Yes 40 mg = 1 M emoria n 40 mg 8-10 tab, PO, l oral tablet 20:14: Bedtime, # [place] 00 30 tab, 0 Refill(s) Valproic 2020-0 Yes 250 mg = 1 Mem oria Acid 250 MG 8-10 cap, PO, l Oral 20:14: TID, # 90 [place] Capsule 00 cap, 0 Refill(s) atorvastati 2020-0 Yes 40 mg = 1 M emoria n 40 mg 8-10 tab, PO, l oral tablet 20:14: Bedtime, # [place] 00 30 tab, 0 Refill(s) Valproic 2020-0 Yes 250 mg = 1 Mem oria Acid 250 MG 8-10 cap, PO, l Oral 20:14: TID, # 90 [place] Capsule 00 cap, 0 Refill(s) atorvastati 2020-0 Yes 40 mg = 1 M emoria n 40 mg 8-10 tab, PO, l oral tablet 20:14: Bedtime, # [place] 00 30 tab, 0 Refill(s) Valproic 2020-0 Yes 250 mg = 1 Mem oria Acid 250 MG 8-10 cap, PO, l Oral 20:14: TID, # 90 [place] Capsule 00 cap, 0 Refill(s) atorvastati 2020-0 Yes 40 mg = 1 M emoria n 40 mg 8-10 tab, PO, l oral tablet 20:14: Bedtime, # [place] 00 30 tab, 0 Refill(s) Valproic 2020-0 Yes 250 mg = 1 Mem oria Acid 250 MG 8-10 cap, PO, l Oral 20:14: TID, # 90 [place] Capsule 00 cap, 0 Refill(s) atorvastati 2020-0 Yes 40 mg = 1 M emoria n 40 mg 8-10 tab, PO, l oral tablet 20:14: Bedtime, # [place] 00 30 tab, 0 Refill(s) Valproic 2020-0 Yes 250 mg = 1 Mem oria Acid 250 MG 8-10 cap, PO, l Oral 20:14: TID, # 90 [place] Capsule 00 cap, 0 Refill(s) atorvastati 2020-0 Yes 40 mg = 1 M emoria n 40 mg 8-10 tab, PO, l oral tablet 20:14: Bedtime, # [place] 00 30 tab, 0 Refill(s) Valproic 2020-0 Yes 250 mg = 1 Mem oria Acid 250 MG 8-10 cap, PO, l Oral 20:14: TID, # 90 [place] Capsule 00 cap, 0 Refill(s) atorvastati 2020-0 Yes 40 mg = 1 M emoria n 40 mg 8-10 tab, PO, l oral tablet 20:14: Bedtime, # [place] 00 30 tab, 0 Refill(s) Valproic 2020-0 Yes 250 mg = 1 Mem oria Acid 250 MG 8-10 cap, PO, l Oral 20:14: TID, # 90 [place] Capsule 00 cap, 0 Refill(s) Folic Acid 2020-0 Yes Daily, 0 Mem oria 8-10 Refill(s) l 20:13: [place] 00 Folic Acid 2020-0 Yes Daily, 0 Mem oria 8-10 Refill(s) l 20:13: [place] Folic Acid 2020-0 Yes Daily, 0 Mem oria 8-10 Refill(s) l 20:13: [place] Folic Acid 202-0 Yes Daily, 0 Mem oria 8-10 Refill(s) l 20:13: [place] Folic Acid 2020-0 Yes Daily, 0 Mem oria 8-10 Refill(s) l 20:13: [place] 00 Folic Acid 2020-0 Yes Daily, 0 Mem oria 8-10 Refill(s) l 20:13: [place] 00 Folic Acid 202-0 Yes Daily, 0 Mem oria 8-10 Refill(s) l 20:13: [place] Folic Acid 2020-0 Yes Daily, 0 Mem oria 8-10 Refill(s) l 20:13: Folic Acid 2021-0 Yes Daily, 0 Mem oria 8-10 Refill(s) l 20:13: Folic Acid 2021-0 Yes Daily, 0 Mem oria 8-10 Refill(s) l 20:13: Folic Acid 2021-0 Yes Daily, 0 Mem oria 8-10 Refill(s) l 20:13: Folic Acid 2021-0 Yes Daily, 0 Mem oria 8-10 Refill(s) l 20:13: Folic Acid 2021-0 Yes Daily, 0 Mem oria 8-10 Refill(s) l 20:13: pantoprazol 2020-0 Yes 40 mg = 1 M emoria e 40 MG 4-23 tab, PO, l Enteric 02:09: Daily, # [place] n Coated 00 90 tab, 0 Tablet Refill(s), [Protonix] Pharmacy: [facility] #[id number], 154.94, cm, 12/17/20 14:42:00 CDT, Height, 115.545, kg, 12/17/20 14:42:00 CDT, Weight pantoprazol 2020-0 Yes 40 mg = 1 M emoria e 40 MG 4-23 tab, PO, l Enteric 02:09: Daily, # [place] Coated 00 90 tab, 0 Tablet Refill(s), [Protonix] Pharmacy: [facility] #[id number], 154.94, cm, 12/17/20 14:42:00 CDT, Height, 115.545, kg, 12/17/20 14:42:00 CDT, Weight pantoprazol 2020-0 Yes 40 mg = 1 M emoria e 40 MG 4-23 tab, PO, l Enteric 02:09: Daily, # [place] Coated 00 90 tab, 0 Tablet Refill(s), [Protonix] Pharmacy: [facility] #[id number], 154.94, cm, 12/17/20 14:42:00 CDT, Height, 115.545, kg, 12/17/20 14:42:00 CDT, Weight pantoprazol 2020-0 Yes 40 mg = 1 M emoria e 40 MG 4-23 tab, PO, l Enteric 02:09: Daily, # [place] n Coated 00 90 tab, 0 Tablet Refill(s), [Protonix] Pharmacy: [facility] #[id number], 154.94, cm, 12/17/20 14:42:00 CDT, Height, 115.545, kg, 12/17/20 14:42:00 CDT, Weight pantoprazol 2021-0 Yes 40 mg = 1 M emoria e 40 MG 4-23 tab, PO, l Enteric 02:09: Daily, # [place] n Coated 00 90 tab, 0 Tablet Refill(s), [Protonix] Pharmacy: [facility] #[id number], 154.94, cm, 12/17/20 14:42:00 CDT, Height, 115.545, kg, 12/17/20 14:42:00 CDT, Weight pantoprazol 2021-0 Yes 40 mg = 1 M emoria e 40 MG 4-23 tab, PO, l Enteric 02:09: Daily, # [place] n Coated 00 90 tab, 0 Tablet Refill(s), [Protonix] Pharmacy: [facility] #[id number], 154.94, cm, 12/17/20 14:42:00 CDT, Height, 115.545, kg, 12/17/20 14:42:00 CDT, Weight pantoprazol 2021-0 Yes 40 mg = 1 M emoria e 40 MG 4-23 tab, PO, l Enteric 02:09: Daily, # [place] n Coated 00 90 tab, 0 Tablet Refill(s), [Protonix] Pharmacy: [facility] #[id number], 154.94, cm, 12/17/20 14:42:00 CDT, Height, 115.545, kg, 12/17/20 14:42:00 CDT, Weight pantoprazol 2021-0 Yes 40 mg = 1 M emoria e 40 MG 4-23 tab, PO, l Enteric 02:09: Daily, # [place] Coated 00 90 tab, 0 Tablet Refill(s), [Protonix] Pharmacy: [facility] #[id number], 154.94, cm, 12/17/20 14:42:00 CDT, Height, 115.545, kg, 12/17/20 14:42:00 CDT, Weight pantoprazol 2021-0 Yes 40 mg = 1 M emoria e 40 MG 4-23 tab, PO, l Enteric 02:09: Daily, # [place] n Coated 00 90 tab, 0 Tablet Refill(s), [id number] 154.94, cm, 12/17/20 14:42:00 CDT, Height, 115.545, kg, 12/17/20 14:42:00 CDT, Weight pantoprazol 2021-0 Yes 40 mg = 1 M emoria e 40 MG 4-23 tab, PO, l Enteric 02:09: Daily, # [place] n Coated 00 90 tab, 0 Tablet Refill(s), [Protonix] [id number] 154.94, cm, 12/17/20 14:42:00 CDT, Height, 115.545, kg, 12/17/20 14:42:00 CDT, Weight pantoprazol 2021-0 Yes 40 mg = 1 M emoria e 40 MG 4-23 tab, PO, l Enteric 02:09: Daily, # [place] n Coated 00 90 tab, 0 Tablet Refill(s), [Protonix] [id number] 154.94, cm, 12/17/20 14:42:00 CDT, Height, 115.545, kg, 12/17/20 14:42:00 CDT, Weight pantoprazol 2021-0 Yes 40 mg = 1 M emoria e 40 MG 4-23 tab, PO, l Enteric 02:09: Daily, # [place] n Coated 00 90 tab, 0 Tablet Refill(s), [Protonix] Pharmacy: [facility] #[id number], 154.94, cm, 12/17/20 14:42:00 CDT, Height, 115.545, kg, 12/17/20 14:42:00 CDT, Weight pantoprazol 2021-0 Yes 40 mg = 1 M emoria e 40 MG 4-23 tab, PO, l Enteric 02:09: Daily, # Sherwin n Coated 00 90 tab, 0 Tablet Refill(s), [Protonix] Pharmacy: [facility] #[id number], 154.94, cm, 12/17/20 14:42:00 CDT, Height, 115.545, kg, 12/17/20 14:42:00 CDT, Weight predniSONE 2020- Yes See Memoria 10 mg oral 4-07 Instructio l tablet 20:05: ns, 4 tabs Ariana nn 00 PO daily x 3 days, then 3 tabs PO daily x 3 days, then 2 tabs PO daily x 3 days, then 1 tab PO daily x 3 days then stop., # 30 tab, 0 Refill(s), Pharmacy: [facility] #[id number], 154.94, cm, 12/17/20 14:42:00 CDT, Height, 115.545,.. . predniSONE 2020-0 Yes See Memoria 10 mg oral 4-07 Instructio l tablet 20:05: ns, 4 tabs Ariana nn 00 PO daily x 3 days, then 3 tabs PO daily x 3 days, then 2 tabs PO daily x 3 days, then 1 tab PO daily x 3 days then stop., # 30 tab, 0 Refill(s), Pharmacy: [facility] #[id number], 154.94, cm, 12/17/20 14:42:00 CDT, Height, 115.545,.. . predniSONE 2020-0 Yes See Memoria 10 mg oral 4-07 Instructio l tablet 20:05: ns, 4 tabs Ariana nn 00 PO daily x 3 days, then 3 tabs PO daily x 3 days, then 2 tabs PO daily x 3 days, then 1 tab PO daily x 3 days then stop., # 30 tab, 0 Refill(s), Pharmacy: [facility] #[id number], 154.94, cm, 12/17/20 14:42:00 CDT, Height, 115.545,.. . predniSONE 2020-0 Yes See Memoria 10 mg oral 4-07 Instructio l tablet 20:05: ns, 4 tabs Ariana nn 00 PO daily x 3 days, then 3 tabs PO daily x 3 days, then 2 tabs PO daily x 3 days, then 1 tab PO daily x 3 days then stop., # 30 tab, 0 Refill(s), Pharmacy: [facility] #[id number], 154.94, cm, 12/17/20 14:42:00 CDT, Height, 115.545,.. . predniSONE 202-0 Yes See Memoria 10 mg oral 4-07 Instructio l tablet 20:05: ns, 4 tabs Ariana nn 00 PO daily x 3 days, then 3 tabs PO daily x 3 days, then 2 tabs PO daily x 3 days, then 1 tab PO daily x 3 days then stop., # 30 tab, 0 Refill(s), Pharmacy: [facility] #[id number], 154.94, cm, 12/17/20 14:42:00 CDT, Height, 115.545,.. . predniSONE 202-0 Yes See Memoria 10 mg oral 4-07 Instructio l tablet 20:05: ns, 4 tabs Ariana nn 00 PO daily x 3 days, then 3 tabs PO daily x 3 days, then 2 tabs PO daily x 3 days, then 1 tab PO daily x 3 days then stop., # 30 tab, 0 Refill(s), Pharmacy: [facility] #[id number], 154.94, cm, 12/17/20 14:42:00 CDT, Height, 115.545,.. . predniSONE 202-0 Yes See Memoria 10 mg oral 4-07 Instructio l tablet 20:05: ns, 4 tabs Ariana nn 00 PO daily x 3 days, then 3 tabs PO daily x 3 days, then 2 tabs PO daily x 3 days, then 1 tab PO daily x 3 days then stop., # 30 tab, 0 Refill(s), Pharmacy: [facility] #[id number], 154.94, cm, 12/17/20 14:42:00 CDT, Height, 115.545,.. . predniSONE 2021-0 Yes See Memoria 10 mg oral 4-07 Instructio l tablet 20:05: ns, 4 tabs Ariana nn 00 PO daily x 3 days, then 3 tabs PO daily x 3 days, then 2 tabs PO daily x 3 days, then 1 tab PO daily x 3 days then stop., # 30 tab, 0 Refill(s), Pharmacy: [facility] #[id number], 154.94, cm, 12/17/20 14:42:00 CDT, Height, 115.545,.. . predniSONE 2020-0 Yes See Memoria 10 mg oral 4-07 Instructio l tablet 20:05: ns, 4 tabs Ariana nn 00 PO daily x 3 days, then 3 tabs PO daily x 3 days, then 2 tabs PO daily x 3 days, then 1 tab PO daily x 3 days then stop., # 30 tab, 0 Refill(s), Pharmacy: [facility] #[id number], 154.94, cm, 12/17/20 14:42:00 CDT, Height, 115.545,.. . predniSONE 2020-0 Yes See Memoria 10 mg oral 4-07 Instructio l tablet 20:05: ns, 4 tabs Ariana nn 00 PO daily x 3 days, then 3 tabs PO daily x 3 days, then 2 tabs PO daily x 3 days, then 1 tab PO daily x 3 days then stop., # 30 tab, 0 Refill(s), Pharmacy: [facility] #[id number], 154.94, cm, 12/17/20 14:42:00 CDT, Height, 115.545,.. . predniSONE 202-0 Yes See Memoria 10 mg oral 4-07 Instructio l tablet 20:05: ns, 4 tabs Ariana nn 00 PO daily x 3 days, then 3 tabs PO daily x 3 days, then 2 tabs PO daily x 3 days, then 1 tab PO daily x 3 days then stop., # 30 tab, 0 Refill(s), Pharmacy: [facility] #[id number], 154.94, cm, 12/17/20 14:42:00 CDT, Height, 115.545,.. . predniSONE 202-0 Yes See Memoria 10 mg oral 4-07 Instructio l tablet 20:05: ns, 4 tabs Ariana nn 00 PO daily x 3 days, then 3 tabs PO daily x 3 days, then 2 tabs PO daily x 3 days, then 1 tab PO daily x 3 days then stop., # 30 tab, 0 Refill(s), Pharmacy: [facility] #[id number], 154.94, cm, 12/17/20 14:42:00 CDT, Height, 115.545,.. . predniSONE 202-0 Yes See Memoria 10 mg oral 4-07 Instructio l tablet 20:05: ns, 4 tabs Ariana nn 00 PO daily x 3 days, then 3 tabs PO daily x 3 days, then 2 tabs PO daily x 3 days, then 1 tab PO daily x 3 days then stop., # 30 tab, 0 Refill(s), Pharmacy: [email or web address] #[id number], 154.94, cm, 12/17/20 14:42:00 CDT, Height, 115.545,.. . 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, 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 valacyclovi 2020-0 Yes 2 gm = 2 Me moria r 1000 MG 2-10 tab, PO, l Oral Tablet 19:59: Q12H, As [place] [Valtrex] 00 soon as cold sore pops up, # 60 tab, 0 Refill(s), Pharmacy: [facility] #[id number], 154.94, cm, 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 valacyclovi 2020-0 Yes 2 gm = 2 Me moria r 1000 MG 2-10 tab, PO, l Oral Tablet 19:59: Q12H, As [place] [Valtrex] 00 soon as cold sore pops up, # 60 tab, 0 Refill(s), Pharmacy: [facility] #[id number], 154.94, cm, 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, 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, 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, kg, 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, 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 valacyclovi 2020-0 Yes 2 gm = 2 Me moria r 1000 MG 2-10 tab, PO, l Oral Tablet 19:59: Q12H, As [place] [Valtrex] 00 soon as cold sore pops up, # 60 tab, 0 Refill(s), Pharmacy: [facility] #[id number], 154.94, cm, 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, 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, 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, kg, 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, 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 valacyclovi 2020-0 Yes 2 gm = 2 Me moria r 1000 MG 2-10 tab, PO, l Oral Tablet 19:59: Q12H, As [place] [Valtrex] 00 soon as cold sore pops up, # 60 tab, 0 Refill(s), Pharmacy: [facility] #[id number], 154.94, cm, 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, 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, 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, kg, 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, 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 valacyclovi 2020-0 Yes 2 gm = 2 Me moria r 1000 MG 2-10 tab, PO, l Oral Tablet 19:59: Q12H, As [place] [Valtrex] 00 soon as cold sore pops up, # 60 tab, 0 Refill(s), Pharmacy: [facility] #[id number], 154.94, cm, 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, 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, 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, kg, 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, 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 valacyclovi 2020-0 Yes 2 gm = 2 Me moria r 1000 MG 2-10 tab, PO, l Oral Tablet 19:59: Q12H, As [place] [Valtrex] 00 soon as cold sore pops up, # 60 tab, 0 Refill(s), Pharmacy: [facility] #[id number], 154.94, cm, 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, 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, 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, kg, 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, 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 valacyclovi 2020-0 Yes 2 gm = 2 Me moria r 1000 MG 2-10 tab, PO, l Oral Tablet 19:59: Q12H, As [place] [Valtrex] 00 soon as cold sore pops up, # 60 tab, 0 Refill(s), Pharmacy: [facility] #[id number], 154.94, cm, 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, 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, 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, kg, 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, 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 valacyclovi 2020-0 Yes 2 gm = 2 Me moria r 1000 MG 2-10 tab, PO, l Oral Tablet 19:59: Q12H, As [place] [Valtrex] 00 soon as cold sore pops up, # 60 tab, 0 Refill(s), Pharmacy: [facility] #[id number], 154.94, cm, 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, 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, 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, kg, 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, Weight valacyclovi 2020-0 Yes 2 gm = 2 Me moria r 1000 MG 2-10 tab, PO, l Oral Tablet 19:59: Q12H, As [place] [Valtrex] 00 soon as cold sore pops up, # 60 tab, 0 Refill(s), Pharmacy: [facility] #[id number], 154.94, cm, 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, 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, 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, kg, 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, Weight pantoprazol 2019-09 Yes = 1 tab, Me moria e 40 mg 1-17 PO, Daily, l oral 20:53: # 90 tab, [place] [facility] 00 1 coated Refill(s), tablet Pharmacy: [facility] [id number], 157.48, cm, 07/10/20 10:07:00 CDT, Height, 110, kg, 07/10/20 10:07:00 CDT, Weight pantoprazol 2019-09 Yes = 1 tab, Me moria e 40 mg 1-17 PO, Daily, l oral 20:53: # 90 tab, [place] [facility] 00 1 coated Refill(s), tablet Pharmacy: [facility] [id number], 157.48, cm, 07/10/20 10:07:00 CDT, Height, 110, kg, 07/10/20 10:07:00 CDT, Weight pantoprazol 2019-09 Yes = 1 tab, Me moria e 40 mg 1-17 PO, Daily, l oral 20:53: # 90 tab, [place] [facility] 00 1 coated Refill(s), tablet Pharmacy: [facility] [id number], 157.48, cm, 07/10/20 10:07:00 CDT, Height, 110, kg, 07/10/20 10:07:00 CDT, Weight pantoprazol 2019-09 Yes = 1 tab, Me moria e 40 mg 1-17 PO, Daily, l oral 20:53: # 90 tab, [place] [facility] 00 1 coated Refill(s), tablet Pharmacy: [facility] [id number], 157.48, cm, 07/10/20 10:07:00 CDT, Height, 110, kg, 07/10/20 10:07:00 CDT, Weight pantoprazol 2019-09 Yes = 1 tab, Me moria e 40 mg 1-17 PO, Daily, l oral 20:53: # 90 tab, [place] [facility] 00 1 coated Refill(s), tablet Pharmacy: [facility] [id number], 157.48, cm, 07/10/20 10:07:00 CDT, Height, 110, kg, 07/10/20 10:07:00 CDT, Weight pantoprazol 2019- Yes = 1 tab, Me moria e 40 mg 1-17 PO, Daily, l oral 20:53: # 90 tab, [place] [facility] 00 1 coated Refill(s), tablet Pharmacy: [facility] [id number], 157.48, cm, 07/10/20 10:07:00 CDT, Height, 110, kg, 07/10/20 10:07:00 CDT, Weight pantoprazol 2019- Yes = 1 tab, Me moria e 40 mg 1-17 PO, Daily, l oral 20:53: # 90 tab, [place] [facility] 00 1 coated Refill(s), tablet Pharmacy: [facility] 60199, 157.48, cm, 07/10/20 10:07:00 CDT, Height, 110, kg, 07/10/20 10:07:00 CDT, Weight pantoprazol 2019- Yes = 1 tab, Me moria e 40 mg 1-17 PO, Daily, l oral 20:53: # 90 tab, [place] [facility] 00 1 coated Refill(s), tablet Pharmacy: [facility] 01101, 157.48, cm, 07/10/20 10:07:00 CDT, Height, 110, kg, 07/10/20 10:07:00 CDT, Weight pantoprazol 2019- Yes = 1 tab, Me moria e 40 mg 1-17 PO, Daily, l oral 20:53: # 90 tab, [place] [facility] 00 1 coated Refill(s), tablet Pharmacy: [facility] 93415, 157.48, cm, 07/10/20 10:07:00 CDT, Height, 110, kg, 07/10/20 10:07:00 CDT, Weight pantoprazol 2019- Yes = 1 tab, Me moria e 40 mg 1-17 PO, Daily, l oral 20:53: # 90 tab, [place] [facility] 00 1 coated Refill(s), tablet Pharmacy: [facility] 36209, 157.48, cm, 07/10/20 10:07:00 CDT, Height, 110, kg, 07/10/20 10:07:00 CDT, Weight pantoprazol 2019-09 Yes = 1 tab, Me moria e 40 mg 1-17 PO, Daily, l oral 20:53: # 90 tab, [place] [facility] 00 1 coated Refill(s), tablet Pharmacy: [facility] 85050, 157.48, cm, 07/10/20 10:07:00 CDT, Height, 110, kg, 07/10/20 10:07:00 CDT, Weight pantoprazol 2019-09 Yes = 1 tab, Me moria e 40 mg 1-17 PO, Daily, l oral 20:53: # 90 tab, [place] [facility] 00 1 coated Refill(s), tablet Pharmacy: [facility] [id number], 157.48, cm, 07/10/20 10:07:00 CDT, Height, 110, kg, 07/10/20 10:07:00 CDT, Weight pantoprazol 2019-09 Yes = 1 tab, Me moria e 40 mg 1-17 PO, Daily, l oral 20:53: # 90 tab, [place] [facility] 00 1 coated Refill(s), tablet Pharmacy: [facility] 77046, 157.48, cm, 07/10/20 10:07:00 CDT, Height, 110, kg, 07/10/20 10:07:00 CDT, Weight 24 HR 2019-09 Yes 75 mg = 2 Memoria venlafaxine 0-29 cap, PO, l 37.5 MG 15:49: Daily, # [place] [facility] Extended 00 60 cap, 3 Release Refill(s), [facility]: [Effexor] [id number], 157.48, cm, 07/10/20 10:07:00 CDT, Height, 110, kg, 07/10/20 10:07:00 CDT, Weight 24 HR 2019-09 Yes 75 mg = 2 Memoria venlafaxine 0-29 cap, PO, l 37.5 MG 15:49: Daily, # [place] Extended 00 60 cap, 3 Release Refill(s), [facility]: [Effexor] [id number], 157.48, cm, 07/10/20 10:07:00 CDT, Height, 110, kg, 07/10/20 10:07:00 CDT, Weight 24 HR 2020- Yes 75 mg = 2 Memoria venlafaxine 0-29 cap, PO, l 37.5 MG 15:49: Daily, # [place] Extended 00 60 cap, 3 Release Refill(s), [facility]: [Effexor] [id number], 157.48, cm, 07/10/20 10:07:00 CDT, Height, 110, kg, 07/10/20 10:07:00 CDT, Weight 24 HR 2020- Yes 75 mg = 2 Memoria venlafaxine 0-29 cap, PO, l 37.5 MG 15:49: Daily, # [place] Extended 00 60 cap, 3 Release Refill(s), [facility]: [Effexor] [id number], 157.48, cm, 07/10/20 10:07:00 CDT, Height, 110, kg, 07/10/20 10:07:00 CDT, Weight 24 HR 2020 Yes 75 mg = 2 Memoria venlafaxine 0-29 cap, PO, l 37.5 MG 15:49: Daily, # [place] Extended 00 60 cap, 3 Release Refill(s), [facility]: [Effexor] [id number], 157.48, cm, 07/10/20 10:07:00 CDT, Height, 110, kg, 07/10/20 10:07:00 CDT, Weight 24 HR 2020- Yes 75 mg = 2 Memoria venlafaxine 0-29 cap, PO, l 37.5 MG 15:49: Daily, # [place] Extended 00 60 cap, 3 Release Refill(s), [facility]: [Effexor] [id number], 157.48, cm, 07/10/20 10:07:00 CDT, Height, 110, kg, 07/10/20 10:07:00 CDT, Weight 24 HR 2020- Yes 75 mg = 2 Memoria venlafaxine 0-29 cap, PO, l 37.5 MG 15:49: Daily, # [place] Extended 00 60 cap, 3 Release Refill(s), [facility]: [Effexor] [id number], 157.48, cm, 07/10/20 10:07:00 CDT, Height, 110, kg, 07/10/20 10:07:00 CDT, Weight 24 HR 2020- Yes 75 mg = 2 Memoria venlafaxine 0-29 cap, PO, l 37.5 MG 15:49: Daily, # [place] Extended 00 60 cap, 3 Release Refill(s), [facility]: [Effexor] [id number], 157.48, cm, 07/10/20 10:07:00 CDT, Height, 110, kg, 07/10/20 10:07:00 CDT, Weight 24 HR 2020- Yes 75 mg = 2 Memoria venlafaxine 0-29 cap, PO, l 37.5 MG 15:49: Daily, # [place] Extended 00 60 cap, 3 Release Refill(s), [facility]: [Effexor] [id number], 157.48, cm, 07/10/20 10:07:00 CDT, Height, 110, kg, 07/10/20 10:07:00 CDT, Weight 24 HR 2020- Yes 75 mg = 2 Memoria venlafaxine 0-29 cap, PO, l 37.5 MG 15:49: Daily, # [place] Extended 00 60 cap, 3 Release Refill(s), [facility]: [Effexor] [id number], 157.48, cm, 07/10/20 10:07:00 CDT, Height, 110, kg, 07/10/20 10:07:00 CDT, Weight 24 HR 2020- Yes 75 mg = 2 Memoria venlafaxine 0-29 cap, PO, l 37.5 MG 15:49: Daily, # [place] Extended 00 60 cap, 3 Release Refill(s), [facility]: [Effexor] [id number], 157.48, cm, 07/10/20 10:07:00 CDT, Height, 110, kg, 07/10/20 10:07:00 CDT, Weight 24 HR 2020- Yes 75 mg = 2 Memoria venlafaxine 0-29 cap, PO, l 37.5 MG 15:49: Daily, # [place] Extended 00 60 cap, 3 Release Refill(s), [facility]: [Effexor] [id number], 157.48, cm, 07/10/20 10:07:00 CDT, Height, 110, kg, 07/10/20 10:07:00 CDT, Weight 24 HR 2019-09 Yes 75 mg = 2 Memoria venlafaxine 0-29 cap, PO, l 37.5 MG 15:49: Daily, # [place] Extended 00 60 cap, 3 Release Refill(s), [facility]: [Effexor] [id number], 157.48, cm, 07/10/20 10:07:00 CDT, Height, 110, kg, 07/10/20 10:07:00 CDT, Weight topiramate 2019-09 No See Memoria 50 MG Oral 0-29 Instructio l Tablet 15:10: ns, 09/13 [place] [Topamax] 00 tab PO QAM, 1 tab PO QPM, 0 Refill(s) topiramate 2019-09 No See Memoria 50 MG Oral 0-29 Instructio l Tablet 15:10: ns, 09/13 [place] [Topamax] 00 tab PO QAM, 1 tab PO QPM, 0 Refill(s) topiramate 2019-09 No See Memoria 50 MG Oral 0-29 Instructio l Tablet 15:10: ns, 09/13 [place] [Topamax] 00 tab PO QAM, 1 tab PO QPM, 0 Refill(s) topiramate 2019-09 No See Memoria 50 MG Oral 0-29 Instructio l Tablet 15:10: ns, 09/13 [place] [Topamax] 00 tab PO QAM, 1 tab PO QPM, 0 Refill(s) topiramate 2019-09 No See Memoria 50 MG Oral 0-29 Instructio l Tablet 15:10: ns, 09/13 [place] [Topamax] 00 tab PO QAM, 1 tab PO QPM, 0 Refill(s) topiramate 2019-09 No See Memoria 50 MG Oral 0-29 Instructio l Tablet 15:10: ns, 1/2 [place] [Topamax] 00 tab PO QAM, 1 tab PO QPM, 0 Refill(s) topiramate 2019-09 No See Memoria 50 MG Oral 0-29 Instructio l Tablet 15:10: ns, 1/2 [place] [Topamax] 00 tab PO QAM, 1 tab PO QPM, 0 Refill(s) topiramate 2019-09 No See Memoria 50 MG Oral 0-29 Instructio l Tablet 15:10: ns, 1/2 [place] [Topamax] 00 tab PO QAM, 1 tab PO QPM, 0 Refill(s) topiramate 2019-09 No See Memoria 50 MG Oral 0-29 Instructio l Tablet 15:10: ns, 1/2 [place] [Topamax] 00 tab PO QAM, 1 tab PO QPM, 0 Refill(s) topiramate 2019-09 No See Memoria 50 MG Oral 0-29 Instructio l Tablet 15:10: ns, 1/2 [place] [Topamax] 00 tab PO QAM, 1 tab PO QPM, 0 Refill(s) topiramate 2019-09 No See Memoria 50 MG Oral 0-29 Instructio l Tablet 15:10: ns, 1/2 [place] [Topamax] 00 tab PO QAM, 1 tab PO QPM, 0 Refill(s) topiramate 2019-09 No See Memoria 50 MG Oral 0-29 Instructio l Tablet 15:10: ns, 1/2 [place] [Topamax] 00 tab PO QAM, 1 tab PO QPM, 0 Refill(s) topiramate 2019-09 No See Memoria 50 MG Oral 0-29 Instructio l Tablet 15:10: ns, 1/2 [place] [Topamax] 00 tab PO QAM, 1 tab PO QPM, 0 Refill(s) amitriptyli 2019-09 No 25 mg = 1 M emoria ne 25 mg 0-27 tab, PO, l oral tablet 16:33: Bedtime, # [place] 00 90 tab, 1 Refill(s), Pharmacy: [email or web address] #[id number], 154.94, cm, 06/03/20 10:17:00 CDT, Height, 113.182, kg, 06/03/20 10:17:00 CDT, Weight amitriptyli 2019-09 No 25 mg = 1 M emoria ne 25 mg 0-27 tab, PO, l oral tablet 16:33: Bedtime, # [place] 00 90 tab, 1 Refill(s), Pharmacy: [id number], 154.94, cm, 06/03/20 10:17:00 CDT, Height, 113.182, kg, 06/03/20 10:17:00 CDT, Weight amitriptyli 2019-09 No 25 mg = 1 M emoria ne 25 mg 0-27 tab, PO, l oral tablet 16:33: Bedtime, # [place] 00 90 tab, 1 Refill(s), Pharmacy: [email or web address] #[id number], 154.94, cm, 06/03/20 10:17:00 CDT, Height, 113.182, kg, 06/03/20 10:17:00 CDT, Weight amitriptyli 2019-09 No 25 mg = 1 M emoria ne 25 mg 0-27 tab, PO, l oral tablet 16:33: Bedtime, # [place] 00 90 tab, 1 Refill(s), Pharmacy: [id number], 154.94, cm, 06/03/20 10:17:00 CDT, Height, 113.182, kg, 06/03/20 10:17:00 CDT, Weight amitriptyli 2019-09 No 25 mg = 1 M emoria ne 25 mg 0-27 tab, PO, l oral tablet 16:33: Bedtime, # [place] 00 90 tab, 1 Refill(s), Pharmacy: [email or web address] #[id number], 154.94, cm, 06/03/20 10:17:00 CDT, Height, 113.182, kg, 06/03/20 10:17:00 CDT, Weight amitriptyli 2019-09 No 25 mg = 1 M emoria ne 25 mg 0-27 tab, PO, l oral tablet 16:33: Bedtime, # [place] 00 90 tab, 1 Refill(s), Pharmacy: [id number], 154.94, cm, 06/03/20 10:17:00 CDT, Height, 113.182, kg, 06/03/20 10:17:00 CDT, Weight amitriptyli 2019-09 No 25 mg = 1 M emoria ne 25 mg 0-27 tab, PO, l oral tablet 16:33: Bedtime, # [place] 00 90 tab, 1 Refill(s), Pharmacy: [id number], 154.94, cm, 06/03/20 10:17:00 CDT, Height, 113.182, kg, 06/03/20 10:17:00 CDT, Weight amitriptyli 2019-09 No 25 mg = 1 M emoria ne 25 mg 0-27 tab, PO, l oral tablet 16:33: Bedtime, # [place] 00 90 tab, 1 Refill(s), Pharmacy: [id number], 154.94, cm, 06/03/20 10:17:00 CDT, Height, 113.182, kg, 06/03/20 10:17:00 CDT, Weight amitriptyli 2019-09 No 25 mg = 1 M emoria ne 25 mg 0-27 tab, PO, l oral tablet 16:33: Bedtime, # [place] 00 90 tab, 1 Refill(s), Pharmacy: [id number], 154.94, cm, 06/03/20 10:17:00 CDT, Height, 113.182, kg, 06/03/20 10:17:00 CDT, Weight amitriptyli 2019-09 No 25 mg = 1 M emoria ne 25 mg 0-27 tab, PO, l oral tablet 16:33: Bedtime, # [place] 00 90 tab, 1 Refill(s), Pharmacy: [id number], 154.94, cm, 06/03/20 10:17:00 CDT, Height, 113.182, kg, 06/03/20 10:17:00 CDT, Weight amitriptyli 2019-09 No 25 mg = 1 M emoria ne 25 mg 0-27 tab, PO, l oral tablet 16:33: Bedtime, # [place] 00 90 tab, 1 Refill(s), Pharmacy: [id number], 154.94, cm, 06/03/20 10:17:00 CDT, Height, 113.182, kg, 06/03/20 10:17:00 CDT, Weight amitriptyli 2019-1 No 25 mg = 1 M emoria ne 25 mg 0-27 tab, PO, l oral tablet 16:33: Bedtime, # [place] 00 90 tab, 1 Refill(s), Pharmacy: [facility] #[id number], 154.94, cm, 06/03/20 10:17:00 CDT, Height, 113.182, kg, 06/03/20 10:17:00 CDT, Weight amitriptyli 2019-1 No 25 mg = 1 M emoria ne 25 mg 0-27 tab, PO, l oral tablet 16:33: Bedtime, # [place] 00 90 tab, 1 Refill(s), Pharmacy: [facility] #[id number], 154.94, cm, 06/03/20 10:17:00 CDT, Height, 113.182, kg, 06/03/20 10:17:00 CDT, Weight amitriptyli 2020-0 Yes 25 mg = 1 M emoria ne 25 mg 9-30 tab, PO, l oral tablet 18:20: Bedtime, # [place] 00 30 tab, 1 Refill(s), Pharmacy: [email or web address] #[id number], 154.94, cm, 06/03/20 10:17:00 CDT, Height, 113.182, kg, 06/03/20 10:17:00 CDT, Weight amitriptyli 2020-0 Yes 25 mg = 1 M emoria ne 25 mg 9-30 tab, PO, l oral tablet 18:20: Bedtime, # [place] 00 30 tab, 1 Refill(s), Pharmacy: [facility] #[id number], 154.94, cm, 06/03/20 10:17:00 CDT, Height, 113.182, kg, 06/03/20 10:17:00 CDT, Weight amitriptyli 2020-0 Yes 25 mg = 1 M emoria ne 25 mg 9-30 tab, PO, l oral tablet 18:20: Bedtime, # [place] 00 30 tab, 1 Refill(s), Pharmacy: [email or web address] #[id number], 154.94, cm, 06/03/20 10:17:00 CDT, Height, 113.182, kg, 06/03/20 10:17:00 CDT, Weight amitriptyli 2020-0 Yes 25 mg = 1 M emoria ne 25 mg 9-30 tab, PO, l oral tablet 18:20: Bedtime, # [place] 00 30 tab, 1 Refill(s), Pharmacy: [facility] #[id number], 154.94, cm, 06/03/20 10:17:00 CDT, Height, 113.182, kg, 06/03/20 10:17:00 CDT, Weight amitriptyli 2020-0 Yes 25 mg = 1 M emoria ne 25 mg 9-30 tab, PO, l oral tablet 18:20: Bedtime, # [place] 00 30 tab, 1 Refill(s), Pharmacy: [facility][id number], 154.94, cm, 06/03/20 10:17:00 CDT, Height, 113.182, kg, 06/03/20 10:17:00 CDT, Weight amitriptyli 2020-0 Yes 25 mg = 1 M emoria ne 25 mg 9-30 tab, PO, l oral tablet 18:20: Bedtime, # [place] 00 30 tab, 1 Refill(s), Pharmacy: [facility] #[id number], 154.94, cm, 06/03/20 10:17:00 CDT, Height, 113.182, kg, 06/03/20 10:17:00 CDT, Weight amitriptyli 2020-0 Yes 25 mg = 1 M emoria ne 25 mg 9-30 tab, PO, l oral tablet 18:20: Bedtime, # [place] 00 30 tab, 1 Refill(s), Pharmacy: [email or web address] #[id number], 154.94, cm, 06/03/20 10:17:00 CDT, Height, 113.182, kg, 06/03/20 10:17:00 CDT, Weight amitriptyli 2020-0 Yes 25 mg = 1 M emoria ne 25 mg 9-30 tab, PO, l oral tablet 18:20: Bedtime, # [place] 00 30 tab, 1 Refill(s), Pharmacy: [id number], 154.94, cm, 06/03/20 10:17:00 CDT, Height, 113.182, kg, 06/03/20 10:17:00 CDT, Weight amitriptyli 2020-0 Yes 25 mg = 1 M emoria ne 25 mg 9-30 tab, PO, l oral tablet 18:20: Bedtime, # [place] 00 30 tab, 1 Refill(s), Pharmacy: [id number], 154.94, cm, 06/03/20 10:17:00 CDT, Height, 113.182, kg, 06/03/20 10:17:00 CDT, Weight amitriptyli 2020-0 Yes 25 mg = 1 M em[place] ne 25 mg 9-30 tab, PO, l oral tablet 18:20: Bedtime, # [place] 00 30 tab, 1 Refill(s), Pharmacy: [id number], 154.94, cm, 06/03/20 10:17:00 CDT, Height, 113.182, kg, 06/03/20 10:17:00 CDT, Weight amitriptyli 2020-0 Yes 25 mg = 1 M [place] ne 25 mg 9-30 tab, PO, l oral tablet 18:20: Bedtime, # [place] 00 30 tab, 1 Refill(s), Pharmacy: [facility] kate #[id number], 154.94, cm, 06/03/20 10:17:00 CDT, Height, 113.182, kg, 06/03/20 10:17:00 CDT, Weight amitriptyli 2020-0 Yes 25 mg = 1 M emoria ne 25 mg 9-30 tab, PO, l oral tablet 18:20: Bedtime, # [place] 00 30 tab, 1 Refill(s), Pharmacy: [email or web address] kate #[id number], 154.94, cm, 06/03/20 10:17:00 CDT, Height, 113.182, kg, 06/03/20 10:17:00 CDT, Weight amitriptyli 2020-0 Yes 25 mg = 1 M emoria ne 25 mg 9-30 tab, PO, l oral tablet 18:20: Bedtime, # [place] 00 30 tab, 1 Refill(s), Pharmacy: [email or web address] cy #[id number], 154.94, cm, 06/03/20 10:17:00 CDT, Height, 113.182, kg, 06/03/20 10:17:00 CDT, Weight topiramate 2020-0 Yes See Memoria 50 MG Oral 9-23 Instructio l Tablet 20:33: ns, 1/2 [place] [Topamax] 00 tab PO QAM and 1 full tab PO QHS, # 135 tab, 1 Refill(s), Pharmacy: [email or web address] cy #[id number], 154.94, cm, 06/03/20 10:17:00 CDT, Height, 113.182, kg, 06/03/20 10:17:00 CDT, Weight topiramate 2020-0 Yes See Memoria 50 MG Oral 9-23 Instructio l Tablet 20:33: ns, 1/2 [place] [Topamax] 00 tab PO QAM and 1 full tab PO QHS, # 135 tab, 1 Refill(s), Pharmacy: [email or web address] #[id number], 154.94, cm, 06/03/20 10:17:00 CDT, Height, 113.182, kg, 06/03/20 10:17:00 CDT, Weight topiramate 2020-0 Yes See Memoria 50 MG Oral 9-23 Instructio l Tablet 20:33: ns, 1/2 [place] [Topamax] 00 tab PO QAM and 1 full tab PO QHS, # 135 tab, 1 Refill(s), Pharmacy: [email or web address] #[id number], 154.94, cm, 06/03/20 10:17:00 CDT, Height, 113.182, kg, 06/03/20 10:17:00 CDT, Weight topiramate 2020-0 Yes See Memoria 50 MG Oral 9-23 Instructio l Tablet 20:33: ns, 1/2 [place] [Topamax] 00 tab PO QAM and 1 full tab PO QHS, # 135 tab, 1 Refill(s), Pharmacy: [email or web address] cy #[id number], 154.94, cm, 06/03/20 10:17:00 CDT, Height, 113.182, kg, 09/22/20 10:17:00 CDT, Weight topiramate 2020-0 Yes See Memoria 50 MG Oral 9-23 Instructio l Tablet 20:33: ns, 1/2 [place] [Topamax] 00 tab PO QAM and 1 full tab PO QHS, # 135 tab, 1 Refill(s), Pharmacy: [email or web address] cy #[id number], 154.94, cm, 06/03/20 10:17:00 CDT, Height, 113.182, kg, 06/03/20 10:17:00 CDT, Weight topiramate 2020-0 Yes See Memoria 50 MG Oral 9-23 Instructio l Tablet 20:33: ns, 1/2 [place] [Topamax] 00 tab PO QAM and 1 full tab PO QHS, # 135 tab, 1 Refill(s), Pharmacy: [facility] #[id number], 154.94, cm, 06/03/20 10:17:00 CDT, Height, 113.182, kg, 06/03/20 10:17:00 CDT, Weight topiramate 2020-0 Yes See Memoria 50 MG Oral 9-23 Instructio l Tablet 20:33: ns, 1/2 [place] [Topamax] 00 tab PO QAM and 1 full tab PO QHS, # 135 tab, 1 Refill(s), Pharmacy: [facility] cy #[id number], 154.94, cm, 06/03/20 10:17:00 CDT, Height, 113.182, kg, 06/03/20 10:17:00 CDT, Weight topiramate 2020-0 Yes See Memoria 50 MG Oral 9-23 Instructio l Tablet 20:33: ns, 1/2 [place] [Topamax] 00 tab PO QAM and 1 full tab PO QHS, # 135 tab, 1 Refill(s), Pharmacy: [facility] cy #[id number], 154.94, cm, 06/03/20 10:17:00 CDT, Height, 113.182, kg, 06/03/20 10:17:00 CDT, Weight topiramate 2020-0 Yes See Memoria 50 MG Oral 9-23 Instructio l Tablet 20:33: ns, 1/2 [place] [Topamax] 00 tab PO QAM and 1 full tab PO QHS, # 135 tab, 1 Refill(s), Pharmacy: [email or web address] cy #[id number], 154.94, cm, 06/03/20 10:17:00 CDT, Height, 113.182, kg, 06/03/20 10:17:00 CDT, Weight topiramate 2020-0 Yes See Memoria 50 MG Oral 9-23 Instructio l Tablet 20:33: ns, 1/2 [place] [Topamax] 00 tab PO QAM and 1 full tab PO QHS, # 135 tab, 1 Refill(s), Pharmacy: [email or web address] cy #[id number], 154.94, cm, 06/03/20 10:17:00 CDT, Height, 113.182, kg, 06/03/20 10:17:00 CDT, Weight topiramate 2020-0 Yes See Memoria 50 MG Oral 9-23 Instructio l Tablet 20:33: ns, 1/2 [place] [Topamax] 00 tab PO QAM and 1 full tab PO QHS, # 135 tab, 1 Refill(s), Pharmacy: [facility] #[id number], 154.94, cm, 06/03/20 10:17:00 CDT, Height, 113.182, kg, 06/03/20 10:17:00 CDT, Weight topiramate 2020-0 Yes See Memoria 50 MG Oral 9-23 Instructio l Tablet 20:33: ns, 1/2 [place] [Topamax] 00 tab PO QAM and 1 full tab PO QHS, # 135 tab, 1 Refill(s), Pharmacy: [facility] #[id number], 154.94, cm, 06/03/20 10:17:00 CDT, Height, 113.182, kg, 06/03/20 10:17:00 CDT, Weight topiramate 2020-0 Yes See Memoria 50 MG Oral 9-23 Instructio l Tablet 20:33: ns, 1/2 [place] [Topamax] 00 tab PO QAM and 1 full tab PO QHS, # 135 tab, 1 Refill(s), Pharmacy: [email or web address] #[id number], 154.94, cm, 06/03/20 10:17:00 CDT, Height, 113.182, kg, 06/03/20 10:17:00 CDT, Weight topiramate 2020-0 No See Memoria 50 MG Oral 9-22 Instructio l Tablet 15:43: ns, 1/2 [place] [Topamax] 00 tab PO QAM and 1 full tab PO QHS, # 45 tab, 2 Refill(s), Pharmacy: [email or web address] #6725, 154.94, cm, 06/03/20 10:17:00 CDT, Height, 113.182, kg, 06/03/20 10:17:00 CDT, Weight Sumatriptan 2020-0 Yes 50 mg = 1 M emoria 50 MG Oral 9-22 tab, PO, l Tablet 15:43: ONCE, PRN Sherwin n [Imitrex] 00 Headache, may repeat one time after 2 hours, # 9 tab, 3 Refill(s), Pharmacy: [email or web address] #6725, 154.94, cm, 06/03/20 10:17:00 CDT, Height, 113.182, kg, 06/03/20 10:17:00 CDT, Weight topiramate 2020-0 No See Memoria 50 MG Oral 9-22 Instructio l Tablet 15:43: ns, 1/2 [place] [Topamax] 00 tab PO QAM and 1 full tab PO QHS, # 45 tab, 2 Refill(s), Pharmacy: [facility] #6725, 154.94, cm, 06/03/20 10:17:00 CDT, Height, 113.182, kg, 06/03/20 10:17:00 CDT, Weight Sumatriptan 2020-0 Yes 50 mg = 1 M emoria 50 MG Oral 9-22 tab, PO, l Tablet 15:43: ONCE, PRN Sherwin n [Imitrex] 00 Headache, may repeat one time after 2 hours, # 9 tab, 3 Refill(s), Pharmacy: [facility] #6725, 154.94, cm, 06/03/20 10:17:00 CDT, Height, 113.182, kg, 06/03/20 10:17:00 CDT, Weight topiramate 2020-0 No See Memoria 50 MG Oral 9-22 Instructio l Tablet 15:43: ns, 1/2 [place] [Topamax] 00 tab PO QAM and 1 full tab PO QHS, # 45 tab, 2 Refill(s), Pharmacy: [email or web address] #6725, 154.94, cm, 06/03/20 10:17:00 CDT, Height, 113.182, kg, 06/03/20 10:17:00 CDT, Weight Sumatriptan 2020-0 Yes 50 mg = 1 M emoria 50 MG Oral 9-22 tab, PO, l Tablet 15:43: ONCE, PRN Sherwin n [Imitrex] 00 Headache, may repeat one time after 2 hours, # 9 tab, 3 Refill(s), Pharmacy: [email or web address] #6725, 154.94, cm, 06/03/20 10:17:00 CDT, Height, 113.182, kg, 06/03/20 10:17:00 CDT, Weight topiramate 2020-0 No See Memoria 50 MG Oral 9-22 Instructio l Tablet 15:43: ns, 1/2 [place]am [Topamax] 00 tab PO QAM and 1 full tab PO QHS, # 45 tab, 2 Refill(s), Pharmacy: [facility] #6725, 154.94, cm, 06/03/20 10:17:00 CDT, Height, 113.182, kg, 06/03/20 10:17:00 CDT, Weight Sumatriptan 2020-0 Yes 50 mg = 1 M emoria 50 MG Oral 9-22 tab, PO, l Tablet 15:43: ONCE, PRN Sherwin n [Imitrex] 00 Headache, may repeat one time after 2 hours, # 9 tab, 3 Refill(s), Pharmacy: [facility] #6725, 154.94, cm, 06/03/20 10:17:00 CDT, Height, 113.182, kg, 06/03/20 10:17:00 CDT, Weight topiramate 2020-0 No See Memoria 50 MG Oral 9-22 Instructio l Tablet 15:43: ns, 1/2 [place]am [Topamax] 00 tab PO QAM and 1 full tab PO QHS, # 45 tab, 2 Refill(s), Pharmacy: [facility] #6725, 154.94, cm, 06/03/20 10:17:00 CDT, Height, 113.182, kg, 06/03/20 10:17:00 CDT, Weight Sumatriptan 2020-0 Yes 50 mg = 1 M emoria 50 MG Oral 9-22 tab, PO, l Tablet 15:43: ONCE, PRN Sherwin n [Imitrex] 00 Headache, may repeat one time after 2 hours, # 9 tab, 3 Refill(s), Pharmacy: [email or web address] #6725, 154.94, cm, 06/03/20 10:17:00 CDT, Height, 113.182, kg, 06/03/20 10:17:00 CDT, Weight topiramate 2020-0 No See Memoria 50 MG Oral 9-22 Instructio l Tablet 15:43: ns, 1/2 [place] [Topamax] 00 tab PO QAM and 1 full tab PO QHS, # 45 tab, 2 Refill(s), Pharmacy: [email or web address] #6725, 154.94, cm, 06/03/20 10:17:00 CDT, Height, 113.182, kg, 06/03/20 10:17:00 CDT, Weight Sumatriptan 2020-0 Yes 50 mg = 1 M emoria 50 MG Oral 9-22 tab, PO, l Tablet 15:43: ONCE, PRN Sherwin n [Imitrex] 00 Headache, may repeat one time after 2 hours, # 9 tab, 3 Refill(s), Pharmacy: [facility] #6725, 154.94, cm, 06/03/20 10:17:00 CDT, Height, 113.182, kg, 06/03/20 10:17:00 CDT, Weight topiramate 2020-0 No See Memoria 50 MG Oral 9-22 Instructio l Tablet 15:43: ns, 1/2 [place] [Topamax] 00 tab PO QAM and 1 full tab PO QHS, # 45 tab, 2 Refill(s), Pharmacy: [facility] #6725, 154.94, cm, 06/03/20 10:17:00 CDT, Height, 113.182, kg, 06/03/20 10:17:00 CDT, Weight Sumatriptan 2020-0 Yes 50 mg = 1 M emoria 50 MG Oral 9-22 tab, PO, l Tablet 15:43: ONCE, PRN Sherwin n [Imitrex] 00 Headache, may repeat one time after 2 hours, # 9 tab, 3 Refill(s), Pharmacy: [email or web address] #6725, 154.94, cm, 06/03/20 10:17:00 CDT, Height, 113.182, kg, 06/03/20 10:17:00 CDT, Weight topiramate 2020-0 No See Memoria 50 MG Oral 9-22 Instructio l Tablet 15:43: ns, 1/2 [place] [Topamax] 00 tab PO QAM and 1 full tab PO QHS, # 45 tab, 2 Refill(s), Pharmacy: [facility] #6725, 154.94, cm, 06/03/20 10:17:00 CDT, Height, 113.182, kg, 06/03/20 10:17:00 CDT, Weight Sumatriptan 2020-0 Yes 50 mg = 1 M emoria 50 MG Oral 9-22 tab, PO, l Tablet 15:43: ONCE, PRN Sherwin n [Imitrex] 00 Headache, may repeat one time after 2 hours, # 9 tab, 3 Refill(s), Pharmacy: [facility] #6725, 154.94, cm, 06/03/20 10:17:00 CDT, Height, 113.182, kg, 06/03/20 10:17:00 CDT, Weight topiramate 2020-0 No See Memoria 50 MG Oral 9-22 Instructio l Tablet 15:43: ns, 1/2 [place] [Topamax] 00 tab PO QAM and 1 full tab PO QHS, # 45 tab, 2 Refill(s), Pharmacy: [facility] #6725, 154.94, cm, 06/03/20 10:17:00 CDT, Height, 113.182, kg, 06/03/20 10:17:00 CDT, Weight Sumatriptan 2020-0 Yes 50 mg = 1 M emoria 50 MG Oral 9-22 tab, PO, l Tablet 15:43: ONCE, PRN Sherwin n [Imitrex] 00 Headache, may repeat one time after 2 hours, # 9 tab, 3 Refill(s), Pharmacy: [email or web address] #6725, 154.94, cm, 06/03/20 10:17:00 CDT, Height, 113.182, kg, 06/03/20 10:17:00 CDT, Weight topiramate 2020-0 No See Memoria 50 MG Oral 9-22 Instructio l Tablet 15:43: ns, 1/2 [place] [Topamax] 00 tab PO QAM and 1 full tab PO QHS, # 45 tab, 2 Refill(s), Pharmacy: [email or web address] #6725, 154.94, cm, 06/03/20 10:17:00 CDT, Height, 113.182, kg, 06/03/20 10:17:00 CDT, Weight Sumatriptan 2020-0 Yes 50 mg = 1 M emoria 50 MG Oral 9-22 tab, PO, l Tablet 15:43: ONCE, PRN Sherwin n [Imitrex] 00 Headache, may repeat one time after 2 hours, # 9 tab, 3 Refill(s), Pharmacy: [email or web address] #6725, 154.94, cm, 06/03/20 10:17:00 CDT, Height, 113.182, kg, 06/03/20 10:17:00 CDT, Weight topiramate 2020-0 No See Memoria 50 MG Oral 9-22 Instructio l Tablet 15:43: ns, 1/2 [place] [Topamax] 00 tab PO QAM and 1 full tab PO QHS, # 45 tab, 2 Refill(s), Pharmacy: [email or web address] #6725, 154.94, cm, 06/03/20 10:17:00 CDT, Height, 113.182, kg, 06/03/20 10:17:00 CDT, Weight Sumatriptan 2020-0 Yes 50 mg = 1 M emoria 50 MG Oral 9-22 tab, PO, l Tablet 15:43: ONCE, PRN Sherwin n [Imitrex] 00 Headache, may repeat one time after 2 hours, # 9 tab, 3 Refill(s), Pharmacy: [email or web address] #6725, 154.94, cm, 06/03/20 10:17:00 CDT, Height, 113.182, kg, 06/03/20 10:17:00 CDT, Weight topiramate 2020-0 No See Memoria 50 MG Oral 9-22 Instructio l Tablet 15:43: ns, 1/2 [place] [Topamax] 00 tab PO QAM and 1 full tab PO QHS, # 45 tab, 2 Refill(s), Pharmacy: [email or web address] #6725, 154.94, cm, 06/03/20 10:17:00 CDT, Height, 113.182, kg, 06/03/20 10:17:00 CDT, Weight Sumatriptan 2020-0 Yes 50 mg = 1 M emoria 50 MG Oral 9-22 tab, PO, l Tablet 15:43: ONCE, PRN Sherwin n [Imitrex] 00 Headache, may repeat one time after 2 hours, # 9 tab, 3 Refill(s), Pharmacy: [email or web address] #6725, 154.94, cm, 06/03/20 10:17:00 CDT, Height, 113.182, kg, 06/03/20 10:17:00 CDT, Weight topiramate 2020-0 No See Memoria 50 MG Oral 9-22 Instructio l Tablet 15:43: ns, 1/2 [place] [Topamax] 00 tab PO QAM and 1 full tab PO QHS, # 45 tab, 2 Refill(s), Pharmacy: [email or web address] #6725, 154.94, cm, 06/03/20 10:17:00 CDT, Height, 113.182, kg, 06/03/20 10:17:00 CDT, Weight Sumatriptan 2020-0 Yes 50 mg = 1 M emoria 50 MG Oral 9-22 tab, PO, l Tablet 15:43: ONCE, PRN Sherwin n [Imitrex] 00 Headache, may repeat one time after 2 hours, # 9 tab, 3 Refill(s), Pharmacy: [facility] #6725, 154.94, cm, 06/03/20 10:17:00 CDT, Height, 113.182, kg, 06/03/20 10:17:00 CDT, Weight Ibuprofen 2020-0 Yes 400 mg = 2 Me moria 200 MG Oral 9-22 tab, PO, l Tablet 15:20: Q4H, PRN Rustam [Advil] 00 Pain, # 120 tab, 0 Refill(s) Ibuprofen 2020-0 Yes 400 mg = 2 Me moria 200 MG Oral 9-22 tab, PO, l Tablet 15:20: Q4H, PRN [place] [Advil] 00 Pain, # 120 tab, 0 Refill(s) Ibuprofen 2020-0 Yes 400 mg = 2 Me moria 200 MG Oral 9-22 tab, PO, l Tablet 15:20: Q4H, PRN Rustam [Advil] 00 Pain, # 120 tab, 0 Refill(s) Ibuprofen 2020-0 Yes 400 mg = 2 Me moria 200 MG Oral 9-22 tab, PO, l Tablet 15:20: Q4H, PRN Rustam [Advil] 00 Pain, # 120 tab, 0 Refill(s) Ibuprofen 2020-0 Yes 400 mg = 2 Me moria 200 MG Oral 9-22 tab, PO, l Tablet 15:20: Q4H, PRN [place] [Advil] 00 Pain, # 120 tab, 0 Refill(s) Ibuprofen 2020-0 Yes 400 mg = 2 Me moria 200 MG Oral 9-22 tab, PO, l Tablet 15:20: Q4H, PRN [place] [Advil] 00 Pain, # 120 tab, 0 Refill(s) Ibuprofen 2020-0 Yes 400 mg = 2 Me moria 200 MG Oral 9-22 tab, PO, l Tablet 15:20: Q4H, PRN [place] [Advil] 00 Pain, # 120 tab, 0 Refill(s) Ibuprofen 2020-0 Yes 400 mg = 2 Me moria 200 MG Oral 9-22 tab, PO, l Tablet 15:20: Q4H, PRN Rustam [Advil] 00 Pain, # 120 tab, 0 Refill(s) Ibuprofen 2020-0 Yes 400 mg = 2 Me moria 200 MG Oral 9-22 tab, PO, l Tablet 15:20: Q4H, PRN [place] [Advil] 00 Pain, # 120 tab, 0 Refill(s) Ibuprofen 2020-0 Yes 400 mg = 2 Me moria 200 MG Oral 9-22 tab, PO, l Tablet 15:20: Q4H, PRN Rustam [Advil] 00 Pain, # 120 tab, 0 Refill(s) Ibuprofen 2020-0 Yes 400 mg = 2 Me moria 200 MG Oral 9-22 tab, PO, l Tablet 15:20: Q4H, PRN [place] [Advil] 00 Pain, # 120 tab, 0 Refill(s) Ibuprofen 2020-0 Yes 400 mg = 2 Me moria 200 MG Oral 9-22 tab, PO, l Tablet 15:20: Q4H, PRN [place] [Advil] 00 Pain, # 120 tab, 0 Refill(s) Ibuprofen 2020-0 Yes 400 mg = 2 Me moria 200 MG Oral 9-22 tab, PO, l Tablet 15:20: Q4H, PRN Rustam [Advil] 00 Pain, # 120 tab, 0 Refill(s) pantoprazol 2020-0 Yes = 1 tab, Me moria e 40 mg 8-07 PO, Daily, l oral 14:56: # 90 tab, [place] enteric 00 0 coated Refill(s), tablet Pharmacy: [facility], 154.94, cm, 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, Height, 114.818, kg, 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, Weight pantoprazol 2020-0 Yes = 1 tab, Me moria e 40 mg 8-07 PO, Daily, l oral 14:56: # 90 tab, [place] enteric 00 0 coated Refill(s), tablet Pharmacy: [facility] 15860, 154.94, cm, 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, Height, 114.818, kg, 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, 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 pantoprazol 2020-0 Yes = 1 tab, Me moria e 40 mg 8-07 PO, Daily, l oral 14:56: # 90 tab, [place] enteric 00 0 coated Refill(s), tablet Pharmacy: [facility] 24159, 154.94, cm, 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, Height, 114.818, kg, 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, 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 pantoprazol 2020-0 Yes = 1 tab, Me moria e 40 mg 8-07 PO, Daily, l oral 14:56: # 90 tab, [place] enteric 00 0 coated Refill(s), tablet Pharmacy: [facility] 84913, 154.94, cm, 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, Height, 114.818, kg, 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, Weight pantoprazol 2020-0 Yes = 1 tab, Me moria e 40 mg 8-07 PO, Daily, l oral 14:56: # 90 tab, [place] enteric 00 0 coated Refill(s), tablet Pharmacy: [facility] 11031, 154.94, cm, 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, Height, 114.818, kg, 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, 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 pantoprazol 2020-0 Yes = 1 tab, Me moria e 40 mg 8-07 PO, Daily, l oral 14:56: # 90 tab, [place] enteric 00 0 coated Refill(s), tablet Pharmacy: [facility] 39742, 154.94, cm, 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, Height, 114.818, kg, 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, 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 pantoprazol 2020-0 Yes = 1 tab, Me moria e 40 mg 8-07 PO, Daily, l oral 14:56: # 90 tab, [place] enteric 00 0 coated Refill(s), tablet Pharmacy: [facility] 31504, 154.94, cm, 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, Height, 114.818, kg, 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, Weight pantoprazol 2020-0 Yes = 1 tab, Me moria e 40 mg 8-07 PO, Daily, l oral 14:56: # 90 tab, [place] enteric 00 0 coated Refill(s), tablet Pharmacy: [facility] 92725, 154.94, cm, 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, Height, 114.818, kg, 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, 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 pantoprazol 2020-0 Yes = 1 tab, Me moria e 40 mg 8-07 PO, Daily, l oral 14:56: # 90 tab, [place] enteric 00 0 coated Refill(s), tablet Pharmacy: [facility] [id number], 154.94, cm, 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, Height, 114.818, kg, 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, 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 pantoprazol 2020-0 Yes = 1 tab, Me moria e 40 mg 8-07 PO, Daily, l oral 14:56: # 90 tab, [facility] enteric 00 0 coated Refill(s), tablet Pharmacy: [facility] 27123, 154.94, cm, 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, Height, 114.818, kg, 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, Weight pantoprazol 2020-0 Yes = 1 tab, Me moria e 40 mg 8-07 PO, Daily, l oral 14:56: # 90 tab, [place] enteric 00 0 coated Refill(s), tablet Pharmacy: [facility] 25987, 154.94, cm, 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, Height, 114.818, kg, 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, Weight pantoprazol 2020-0 Yes = 1 tab, Me moria e 40 mg 8-07 PO, Daily, l oral 14:56: # 90 tab, [place] enter[facility] 00 0 coated Refill(s), tablet Pharmacy: [facility] 89196, 154.94, cm, 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, Height, 114.818, kg, 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, Weight pantoprazol 2020-0 Yes = 1 tab, Me moria e 40 mg 8-07 PO, Daily, l oral 14:56: # 90 tab, [place] enter[facility] 00 0 coated Refill(s), tablet Pharmacy: [facility] 99255, 154.94, cm, 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, Height, 114.818, kg, 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, Weight {21 2020-0 Yes See Memoria (Methylpred 6-12 Instructio l nisolone 4 13:33: ns, PO, Herm sienna MG Oral 00 Take by Tablet mouth as [Medrol]) } directed Pack on label., [Medrol X 6 day, # Dosepak] 21 tab, 0 Refill(s), Pharmacy: [facility] #7120, 154.94, cm, 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, Height, 114.818, kg, 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, Weight Cyclobenzap 2020-0 Yes 10 mg = 1 M emoria rine 6-12 tab, PO, l hydrochlori 13:33: Bedtime, He rmann de 10 MG 00 PRN for Oral Tablet spasm, # [Flexeril] 15 tab, 0 Refill(s), Pharmacy: [facility] #7120, 154.94, cm, 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, Height, 114.818, kg, 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, Weight {2019-0 Yes See Memoria (Methylpred 6-12 Instructio l nisolone 4 13:33: ns, PO, Herm sienna MG Oral 00 Take by Tablet mouth as [Medrol]) } directed Pack on label., [Medrol X 6 day, # Dosepak] 21 tab, 0 Refill(s), Pharmacy: [facility] #7120, 154.94, cm, 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, Height, 114.818, kg, 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, Weight Cyclobenzap 2020-0 Yes 10 mg = 1 M emoria rine 6-12 tab, PO, l hydrochlori 13:33: Bedtime, He rmann de 10 MG 00 PRN for Oral Tablet spasm, # [Flexeril] 15 tab, 0 Refill(s), Pharmacy: [facility] #7120, 154.94, cm, 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, Height, 114.818, kg, 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, Weight {2019-0 Yes See Memoria (Methylpred 6-12 Instructio l nisolone 4 13:33: ns, PO, Herm sienna MG Oral 00 Take by Tablet mouth as [Medrol]) } directed Pack on label., [Medrol X 6 day, # Dosepak] 21 tab, 0 Refill(s), Pharmacy: [facility] #7120, 154.94, cm, 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, Height, 114.818, kg, 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, Weight Cyclobenzap 2020-0 Yes 10 mg = 1 M emoria rine 6-12 tab, PO, l hydrochlori 13:33: Bedtime, He rmann de 10 MG 00 PRN for Oral Tablet spasm, # [Flexeril] 15 tab, 0 Refill(s), Pharmacy: [facility] #7120, 154.94, cm, 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, Height, 114.818, kg, 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, Weight {21 2020-0 Yes See Memoria (Methylpred 6-12 Instructio l nisolone 4 13:33: ns, PO, Herm sienna MG Oral 00 Take by Tablet mouth as [Medrol]) } directed Pack on label., [Medrol X 6 day, # Dosepak] 21 tab, 0 Refill(s), Pharmacy: [facility] #7120, 154.94, cm, 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, Height, 114.818, kg, 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, Weight Cyclobenzap 2020-0 Yes 10 mg = 1 M emoria rine 6-12 tab, PO, l hydrochlori 13:33: Bedtime, He rmann de 10 MG 00 PRN for Oral Tablet spasm, # [Flexeril] 15 tab, 0 Refill(s), Pharmacy: [facility] #7120, 154.94, cm, 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, Height, 114.818, kg, 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, Weight {21 2020-0 Yes See Memoria (Methylpred 6-12 Instructio l nisolone 4 13:33: ns, PO, Herm sienna MG Oral 00 Take by Tablet mouth as [Medrol]) } directed Pack on label., [Medrol X 6 day, # Dosepak] 21 tab, 0 Refill(s), Pharmacy: [facility] #7120, 154.94, cm, 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, Height, 114.818, kg, 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, Weight Cyclobenzap 2020-0 Yes 10 mg = 1 M emoria rine 6-12 tab, PO, l hydrochlori 13:33: Bedtime, He rmann de 10 MG 00 PRN for Oral Tablet spasm, # [Flexeril] 15 tab, 0 Refill(s), Pharmacy: [facility] #7120, 154.94, cm, 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, Height, 114.818, kg, 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, Weight {21 2020-0 Yes See Memoria (Methylpred 6-12 Instructio l nisolone 4 13:33: ns, PO, Herm sienna MG Oral 00 Take by Tablet mouth as [Medrol]) } directed Pack on label., [Medrol X 6 day, # Dosepak] 21 tab, 0 Refill(s), Pharmacy: [facility] #7120, 154.94, cm, 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, Height, 114.818, kg, 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, Weight Cyclobenzap 2020-0 Yes 10 mg = 1 M emoria rine 6-12 tab, PO, l hydrochlori 13:33: Bedtime, He rmann de 10 MG 00 PRN for Oral Tablet spasm, # [Flexeril] 15 tab, 0 Refill(s), Pharmacy: [facility] #7120, 154.94, cm, 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, Height, 114.818, kg, 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, Weight {21 2019-0 Yes See Memoria (Methylpred 6-12 Instructio l nisolone 4 13:33: ns, PO, Herm sienna MG Oral 00 Take by Tablet mouth as [Medrol]) } directed Pack on label., [Medrol X 6 day, # Dosepak] 21 tab, 0 Refill(s), Pharmacy: [facility] #7120, 154.94, cm, 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, Height, 114.818, kg, 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, Weight Cyclobenzap 2020-0 Yes 10 mg = 1 M emoria rine 6-12 tab, PO, l hydrochlori 13:33: Bedtime, He rmann de 10 MG 00 PRN for Oral Tablet spasm, # [Flexeril] 15 tab, 0 Refill(s), Pharmacy: [facility] #7120, 154.94, cm, 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, Height, 114.818, kg, 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, Weight {21 2020-0 Yes See Memoria (Methylpred 6-12 Instructio l nisolone 4 13:33: ns, PO, Herm sienna MG Oral 00 Take by Tablet mouth as [Medrol]) } directed Pack on label., [Medrol X 6 day, # Dosepak] 21 tab, 0 Refill(s), Pharmacy: [facility] #7120, 154.94, cm, 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, Height, 114.818, kg, 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, Weight Cyclobenzap 2020-0 Yes 10 mg = 1 M emoria rine 6-12 tab, PO, l hydrochlori 13:33: Bedtime, He rmann de 10 MG 00 PRN for Oral Tablet spasm, # [Flexeril] 15 tab, 0 Refill(s), Pharmacy: [facility] #7120, 154.94, cm, 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, Height, 114.818, kg, 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, Weight {21 2019-0 Yes See Memoria (Methylpred 6-12 Instructio l nisolone 4 13:33: ns, PO, Herm sienna MG Oral 00 Take by Tablet mouth as [Medrol]) } directed Pack on label., [Medrol X 6 day, # Dosepak] 21 tab, 0 Refill(s), Pharmacy: [facility] #7120, 154.94, cm, 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, Height, 114.818, kg, 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, Weight Cyclobenzap 2020-0 Yes 10 mg = 1 M emoria rine 6-12 tab, PO, l hydrochlori 13:33: Bedtime, He rmann de 10 MG 00 PRN for Oral Tablet spasm, # [Flexeril] 15 tab, 0 Refill(s), Pharmacy: [facility] #7120, 154.94, cm, 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, Height, 114.818, kg, 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, Weight {21 2020-0 Yes See Memoria (Methylpred 6-12 Instructio l nisolone 4 13:33: ns, PO, Herm sienna MG Oral 00 Take by Tablet mouth as [Medrol]) } directed Pack on label., [Medrol X 6 day, # Dosepak] 21 tab, 0 Refill(s), Pharmacy: [id number], 154.94, cm, 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, Height, 114.818, kg, 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, Weight Cyclobenzap 2020-0 Yes 10 mg = 1 M emoria rine 6-12 tab, PO, l hydrochlori 13:33: Bedtime, He rmann de 10 MG 00 PRN for Oral Tablet spasm, # [Flexeril] 15 tab, 0 Refill(s), Pharmacy: [facility] #[id number], 154.94, cm, 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, Height, 114.818, kg, 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, Weight {21 2020-0 Yes See Memoria (Methylpred 6-12 Instructio l nisolone 4 13:33: ns, PO, Herm sienna MG Oral 00 Take by Tablet mouth as [Medrol]) } directed Pack on label., [Medrol X 6 day, # Dosepak] 21 tab, 0 Refill(s), Pharmacy: [id number], 154.94, cm, 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, Height, 114.818, kg, 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, Weight Cyclobenzap 2020-0 Yes 10 mg = 1 M emoria rine 6-12 tab, PO, l hydrochlori 13:33: Bedtime, He rmann de 10 MG 00 PRN for Oral Tablet spasm, # [Flexeril] 15 tab, 0 Refill(s), Pharmacy: [id number], 154.94, cm, 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, Height, 114.818, kg, 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, Weight {21 2020-0 Yes See Memoria (Methylpred 6-12 Instructio l nisolone 4 13:33: ns, PO, Herm sienna MG Oral 00 Take by Tablet mouth as [Medrol]) } directed Pack on label., [Medrol X 6 day, # Dosepak] 21 tab, 0 Refill(s), Pharmacy: [id number], 154.94, cm, 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, Height, 114.818, kg, 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, Weight Cyclobenzap 2020-0 Yes 10 mg = 1 M emoria rine 6-12 tab, PO, l hydrochlori 13:33: Bedtime, He rmann de 10 MG 00 PRN for Oral Tablet spasm, # [Flexeril] 15 tab, 0 Refill(s), Pharmacy: [id number], 154.94, cm, 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, Height, 114.818, kg, 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, Weight {21 2020-0 Yes See Memoria (Methylpred 6-12 Instructio l nisolone 4 13:33: ns, PO, Herm sienna MG Oral 00 Take by Tablet mouth as [Medrol]) } directed Pack on label., [Medrol X 6 day, # Dosepak] 21 tab, 0 Refill(s), Pharmacy: [id number], 154.94, cm, 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, Height, 114.818, kg, 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, Weight Cyclobenzap 2020-0 Yes 10 mg = 1 M emoria rine 6-12 tab, PO, l hydrochlori 13:33: Bedtime, He rmann de 10 MG 00 PRN for Oral Tablet spasm, # [Flexeril] 15 tab, 0 Refill(s), Pharmacy: [facility] #[id number], 154.94, cm, 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, Height, 114.818, kg, 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, Weight Hydrochloro 2020-0 Yes 0 Memori a thiazide 6-11 Refill(s) l 12.5 MG 21:50: Rustam Oral 00 Capsule non-formula 2020-0 Yes Refill(s) Max emoria ry 6-11 0 l 21:50: Rustam 00 Phentermine 2020-0 Yes 0 Memori a Hydrochlori 6-11 Refill(s) l de 37.5 MG 21:50: [place] Oral Tablet 00 Hydrochloro 2020-0 Yes 0 Memori a thiazide 6-11 Refill(s) l 12.5 MG 21:50: Rustam Oral 00 Capsule non-formula 2020-0 Yes Refill(s) Max emoria ry 6-11 0 l 21:50: [place] 00 Phentermine 2020-0 Yes 0 Memori a Hydrochlori 6-11 Refill(s) l de 37.5 MG 21:50: [place] Oral Tablet 00 Hydrochloro 2020-0 Yes 0 Memori a thiazide 6-11 Refill(s) l 12.5 MG 21:50: [place] Oral 00 Capsule non-formula 2020-0 Yes Refill(s) Max shethriyola ry 6-11 0 l 21:50: Rustam 00 Phentermine 2020-0 Yes 0 Memori a Hydrochlori 6-11 Refill(s) l de 37.5 MG 21:50: [place] Oral Tablet 00 Hydrochloro 2020-0 Yes 0 Memori a thiazide 6-11 Refill(s) l 12.5 MG 21:50: Rustam Oral 00 Capsule non-formula 2020-0 Yes Refill(s) Max shethrioyla ry 6-11 0 l 21:50: [place]am 00 Phentermine 2020-0 Yes 0 Memori a Hydrochlori 6-11 Refill(s) l de 37.5 MG 21:50: [place] Oral Tablet 00 Hydrochloro 2020-0 Yes 0 Memori a thiazide 6-11 Refill(s) l 12.5 MG 21:50: Rustam Oral 00 Capsule non-formula 2020-0 Yes Refill(s) Max emoria ry 6-11 0 l 21:50: [place] 00 Phentermine 2020-0 Yes 0 Memori a Hydrochlori 6-11 Refill(s) l de 37.5 MG 21:50: Rustam Oral Tablet 00 Hydrochloro 2020-0 Yes 0 Memori a thiazide 6-11 Refill(s) l 12.5 MG 21:50: [place] Oral 00 Capsule non-formula 2020-0 Yes Refill(s) M emoria ry 6-11 0 l 21:50: [place] 00 Phentermine 2020-0 Yes 0 Memori a Hydrochlori 6-11 Refill(s) l de 37.5 MG 21:50: [place] Oral Tablet 00 Hydrochloro 2020-0 Yes 0 Memori a thiazide 6-11 Refill(s) l 12.5 MG 21:50: [place] Oral 00 Capsule non-formula 2020-0 Yes Refill(s) Max emoria ry 6-11 0 l 21:50: [place] 00 Phentermine 2020-0 Yes 0 Memori a Hydrochlori 6-11 Refill(s) l de 37.5 MG 21:50: [place] Oral Tablet 00 Hydrochloro 2020-0 Yes 0 Memori a thiazide 6-11 Refill(s) l 12.5 MG 21:50: [place] Oral 00 Capsule non-formula 2020-0 Yes Refill(s) Max emoria ry 6-11 0 l 21:50: [place] 00 Phentermine 2020-0 Yes 0 Memori a Hydrochlori 6-11 Refill(s) l de 37.5 MG 21:50: [place] Oral Tablet 00 Hydrochloro 2020-0 Yes 0 Memori a thiazide 6-11 Refill(s) l 12.5 MG 21:50: [place] Oral 00 Capsule non-formula 2020-0 Yes Refill(s) Max emoria ry 6-11 0 l 21:50: [place] 00 Phentermine 2020-0 Yes 0 Memori a Hydrochlori 6-11 Refill(s) l de 37.5 MG 21:50: [place] Oral Tablet 00 Hydrochloro 2020-0 Yes 0 Memori a thiazide 6-11 Refill(s) l 12.5 MG 21:50: [place] Oral 00 Capsule non-formula 2020-0 Yes Refill(s) Max emoria ry 6-11 0 l 21:50: [place] 00 Phentermine 2020-0 Yes 0 Memori a Hydrochlori 6-11 Refill(s) l de 37.5 MG 21:50: [place] Oral Tablet 00 Hydrochloro 2020-0 Yes 0 Memori a thiazide 6-11 Refill(s) l 12.5 MG 21:50: [place] Oral 00 Capsule non-formula 2020-0 Yes Refill(s) Max emoria ry 6-11 0 l 21:50: Phentermine 2020-0 Yes 0 Memori a Hydrochlori 6-11 Refill(s) l de 37.5 MG 21:50: [place] Oral Tablet 00 Hydrochloro 2020-0 Yes 0 Memori a thiazide 6-11 Refill(s) l 12.5 MG 21:50: Oral 00 Capsule non-formula 2020-0 Yes Refill(s) Max emoria ry 6-11 0 l 21:50: Phentermine 2020-0 Yes 0 Memori a Hydrochlori 6-11 Refill(s) l de 37.5 MG 21:50: Oral Tablet 00 Hydrochloro 2020-0 Yes 0 Memori a thiazide 6-11 Refill(s) l 12.5 MG 21:50: Oral 00 Capsule non-formula 2020-0 Yes Refill(s) Max emoria ry 6-11 0 l 21:50: Phentermine 2020-0 Yes 0 Memori a Hydrochlori 6-11 Refill(s) l de 37.5 MG 21:50: Oral Tablet 00 Folic Acid 2020-0 Yes 0 Memoria 1 MG Oral 6-11 Refill(s) l Tablet 21:49: Folic Acid 2020-0 Yes 0 Memoria 1 MG Oral 6-11 Refill(s) l Tablet 21:49: Folic Acid 2020-0 Yes 0 Memoria 1 MG Oral 6-11 Refill(s) l Tablet 21:49: Folic Acid 2020-0 Yes 0 Memoria 1 MG Oral 6-11 Refill(s) l Tablet 21:49: Folic Acid 2020-0 Yes 0 Memoria 1 MG Oral 6-11 Refill(s) l Tablet 21:49: Folic Acid 2020-0 Yes 0 Memoria 1 MG Oral 6-11 Refill(s) l Tablet 21:49: Folic Acid 2020-0 Yes 0 Memoria 1 MG Oral 6-11 Refill(s) l Tablet 21:49: Folic Acid 2020-0 Yes 0 Memoria 1 MG Oral 6-11 Refill(s) l Tablet 21:49: Folic Acid 2020-0 Yes 0 Memoria 1 MG Oral 6-11 Refill(s) l Tablet 21:49: Folic Acid 2020-0 Yes 0 Memoria 1 MG Oral 6-11 Refill(s) l Tablet 21:49: Folic Acid 2020-0 Yes 0 Memoria 1 MG Oral 6-11 Refill(s) l Tablet 21:49: Folic Acid 2020-0 Yes 0 Memoria 1 MG Oral 6-11 Refill(s) l Tablet 21:49: Folic Acid 2020-0 Yes 0 Memoria 1 MG Oral 6-11 Refill(s) l Tablet 21:49: pantoprazol 2020-0 Yes = 1 tab, Me moria e 40 mg 5-04 PO, Daily, l oral 13:34: # 90 tab, [place] enter[facility] 48 Pharmacy: [id number] pantoprazol 2020-0 Yes = 1 tab, Me moria e 40 mg 5-04 PO, Daily, l oral 13:34: # 90 tab, [place] enter[facility] 48 Pharmacy: [id number] pantoprazol 2020-0 Yes = 1 tab, Me moria e 40 mg 5-04 PO, Daily, l oral 13:34: # 90 tab, [place] enter[facility] 48 Pharmacy: [id number] pantoprazol 2020-0 Yes = 1 tab, Me moria e 40 mg 5-04 PO, Daily, l oral 13:34: # 90 tab, [place] enter[facility] 48 Pharmacy: [id number] pantoprazol 2020-0 Yes = 1 tab, Me moria e 40 mg 5-04 PO, Daily, l oral 13:34: # 90 tab, [place] enter[facility] 48 Pharmacy: [id number] pantoprazol 2020-0 Yes = 1 tab, Me moria e 40 mg 5-04 PO, Daily, l oral 13:34: # 90 tab, [place] enter[facility] 48 Pharmacy: [id number] pantoprazol 2020-0 Yes = 1 tab, Me moria e 40 mg 5-04 PO, Daily, l oral 13:34: # 90 tab, [place] enter[facility] 48 Pharmacy: [id number] pantoprazol 2020-0 Yes = 1 tab, Me moria e 40 mg 5-04 PO, Daily, l oral 13:34: # 90 tab, [place] enter[facility] 48 Pharmacy: [id number] pantoprazol 2020-0 Yes = 1 tab, Me moria e 40 mg 5-04 PO, Daily, l oral 13:34: # 90 tab, [place] enter[facility] 48 Pharmacy: [id number] pantoprazol 2020-0 Yes = 1 tab, Me moria e 40 mg 5-04 PO, Daily, l oral 13:34: # 90 tab, [place] enter[facility] 48 Pharmacy: [id number] pantoprazol 2020-0 Yes = 1 tab, Me moria e 40 mg 5-04 PO, Daily, l oral 13:34: # 90 tab, [place] enter[facility] 48 Pharmacy: [id number] pantoprazol 2020-0 Yes = 1 tab, Me moria e 40 mg 5-04 PO, Daily, l oral 13:34: # 90 tab, [place] enter[facility] 48 Pharmacy: [id number] pantoprazol 2020-0 Yes = 1 tab, Me moria e 40 mg 5-04 PO, Daily, l oral 13:34: # 90 tab, [place] [facility] 48 Pharmacy: [id number] Hydrochloro 2020-0 Yes = 1 tab, Me moria thiazide 25 1-27 PO, Daily, l MG Oral 15:06: PRN [place] Tablet 37 NEEDED FOR SWELLING, # 90 tab, Pharmacy: [id number] Hydrochloro 2020-0 Yes = 1 tab, Me moria thiazide 25 1-27 PO, Daily, l MG Oral 15:06: PRN [place] Tablet 37 NEEDED FOR SWELLING, # 90 tab, Pharmacy: [id number] Hydrochloro 2020-0 Yes = 1 tab, Me moria thiazide 25 1-27 PO, Daily, l MG Oral 15:06: PRN [place] Tablet 37 NEEDED FOR SWELLING, # 90 tab, Pharmacy: [id number] Hydrochloro 2020-0 Yes = 1 tab, Me moria thiazide 25 1-27 PO, Daily, l MG Oral 15:06: PRN [place] Tablet 37 NEEDED FOR SWELLING, # 90 tab, Pharmacy: [id number] Hydrochloro 2020-0 Yes = 1 tab, Me moria thiazide 25 1-27 PO, Daily, l MG Oral 15:06: PRN [place] Tablet 37 NEEDED FOR SWELLING, # 90 tab, Pharmacy: [id number] Hydrochloro 2020-0 Yes = 1 tab, Me moria thiazide 25 1-27 PO, Daily, l MG Oral 15:06: PRN [place] Tablet 37 NEEDED FOR SWELLING, # 90 tab, Pharmacy: [email or web address] #[id number] Hydrochloro 2020-0 Yes = 1 tab, Me moria thiazide 25 1-27 PO, Daily, l MG Oral 15:06: PRN [place] Tablet 37 NEEDED FOR SWELLING, # 90 tab, Pharmacy: [facility] #7120 Hydrochloro 2020-0 Yes = 1 tab, Me moria thiazide 25 1-27 PO, Daily, l MG Oral 15:06: PRN [place] Tablet 37 NEEDED FOR SWELLING, # 90 tab, Pharmacy: [email or web address] #[id number] Hydrochloro 2020-0 Yes = 1 tab, Me moria thiazide 25 1-27 PO, Daily, l MG Oral 15:06: PRN [place] Tablet 37 NEEDED FOR SWELLING, # 90 tab, Pharmacy: [email or web address] #[id number] Hydrochloro 2020-0 Yes = 1 tab, Me moria thiazide 25 1-27 PO, Daily, l MG Oral 15:06: PRN [place] Tablet 37 NEEDED FOR SWELLING, # 90 tab, Pharmacy: [email or web address] #7120 Hydrochloro 2020-0 Yes = 1 tab, Me moria thiazide 25 1-27 PO, Daily, l MG Oral 15:06: PRN [place] Tablet 37 NEEDED FOR SWELLING, # 90 tab, Pharmacy: [email or web address] #7120 Hydrochloro 2020-0 Yes = 1 tab, Me moria thiazide 25 1-27 PO, Daily, l MG Oral 15:06: PRN [place] Tablet 37 NEEDED FOR SWELLING, # 90 tab, Pharmacy: [email or web address] #7120 Hydrochloro 2020-0 Yes = 1 tab, Me moria thiazide 25 1-27 PO, Daily, l MG Oral 15:06: PRN [place] Tablet 37 NEEDED FOR SWELLING, # 90 tab, Pharmacy: [email or web address] #7120 Clarithromy 2018- Yes 500 mg = 1 Memoria roberto 500 MG 1-26 tab, PO, l Oral Tablet 20:13: Q12H, X 10 [place] [Biaxin] 00 day, # 20 tab, 0 Refill(s), Pharmacy: [facility] #7120 {2018-09 Yes See Memoria (Methylpred 1-26 Instructio l nisolone 4 20:13: ns, PO, Herm sienna MG Oral 00 Take by Tablet mouth as [Medrol]) } directed Pack on label., [Medrol X 6 day, # Dosepak] 1 Pack, 0 Refill(s), Pharmacy: [facility] #[address] [place] [address] 2018-09 Yes 500 mg = 1 Memoria roberto 500 MG 1-26 tab, PO, l Oral Tablet 20:13: Q12H, X 10 [place] [Biaxin] 00 day, # 20 tab, 0 Refill(s), Pharmacy: [facility] #[id number] {2018-09 Yes See Memoria (Methylpred 1-26 Instructio l nisolone 4 20:13: ns, PO, Herm sienna MG Oral 00 Take by Tablet mouth as [Medrol]) } directed Pack on label., [Medrol X 6 day, # Dosepak] 1 Pack, 0 Refill(s), Pharmacy: [facility] #7120 [facility] 2018-09 Yes 500 mg = 1 Memoria roberto 500 MG 1-26 tab, PO, l Oral Tablet 20:13: Q12H, X 10 [place] [Biaxin] 00 day, # 20 tab, 0 Refill(s), Pharmacy: [facility] #7120 {2018-09 Yes See Memoria (Methylpred 1-26 Instructio l nisolone 4 20:13: ns, PO, Herm sienna MG Oral 00 Take by Tablet mouth as [Medrol]) } directed Pack on label., [Medrol X 6 day, # Dosepak] 1 Pack, 0 Refill(s), Pharmacy: [email or web address] #[facility] 2018-09 Yes 500 mg = 1 Memoria roberto 500 MG 1-26 tab, PO, l Oral Tablet 20:13: Q12H, X 10 [place] [Biaxin] 00 day, # 20 tab, 0 Refill(s), Pharmacy: [email or web address] #7120 {2018-09 Yes See Memoria (Methylpred 1-26 Instructio l nisolone 4 20:13: ns, PO, Herm sienna MG Oral 00 Take by Tablet mouth as [Medrol]) } directed Pack on label., [Medrol X 6 day, # Dosepak] 1 Pack, 0 Refill(s), [facility] 2018-09 Yes 500 mg = 1 Memoria roberto 500 MG 1-26 tab, PO, l Oral Tablet 20:13: Q12H, X 10 [place] [Biaxin] 00 day, # 20 tab, 0 Refill(s), [facility] {2018-09 Yes See Memoria (Methylpred 1-26 Instructio l nisolone 4 20:13: ns, PO, Herm sienna MG Oral 00 Take by Tablet mouth as [Medrol]) } directed Pack on label., [Medrol X 6 day, # Dosepak] 1 Pack, 0 Refill(s), [facility] [place] [address] 2018-09 Yes 500 mg = 1 Memoria roberto 500 MG 1-26 tab, PO, l Oral Tablet 20:13: Q12H, X 10 [place] [Biaxin] 00 day, # 20 tab, 0 Refill(s), [facility] {2018-09 Yes See Memoria (Methylpred 1-26 Instructio l nisolone 4 20:13: ns, PO, Herm sienna MG Oral 00 Take by Tablet mouth as [Medrol]) } directed Pack on label., [Medrol X 6 day, # Dosepak] 1 Pack, 0 Refill(s), [facility] Yes [facility] mg = 1 Memoria roberto 500 MG 1-26 tab, PO, l Oral Tablet 20:13: Q12H, X 10 [place] [Biaxin] 00 day, # 20 tab, 0 Refill(s), [id number] {2018-09 Yes See Memoria (Methylpred 1-26 Instructio l nisolone 4 20:13: ns, PO, Herm sienna MG Oral 00 Take by Tablet mouth as [Medrol]) } directed Pack on label., [Medrol X 6 day, # Dosepak] 1 Pack, 0 Refill(s), Pharmacy: [facility] #7120 [facility] 2018-09 Yes 500 mg = 1 Memoria roberto 500 MG 1-26 tab, PO, l Oral Tablet 20:13: Q12H, X 10 [place] [Biaxin] 00 day, # 20 tab, 0 Refill(s), [facility] {2018-09 Yes See Memoria (Methylpred 1-26 Instructio l nisolone 4 20:13: ns, PO, Herm sienna MG Oral 00 Take by Tablet mouth as [Medrol]) } directed Pack on label., [Medrol X 6 day, # Dosepak] 1 Pack, 0 Refill(s), Pharmacy: [facility] #7120 [facility] 2018-09 Yes 500 mg = 1 Memoria roberto 500 MG 1-26 tab, PO, l Oral Tablet 20:13: Q12H, X 10 [place] [Biaxin] 00 day, # 20 tab, 0 Refill(s), [facility] {2018-09 Yes See Memoria (Methylpred 1-26 Instructio l nisolone 4 20:13: ns, PO, Herm sienna MG Oral 00 Take by Tablet mouth as [Medrol]) } directed Pack on label., [Medrol X 6 day, # Dosepak] 1 Pack, 0 Refill(s), [facility] 2018-09 Yes 500 mg = 1 Memoria roberto 500 MG 1-26 tab, PO, l Oral Tablet 20:13: Q12H, X 10 [place] [Biaxin] 00 day, # 20 tab, 0 Refill(s), [facility] {2018-09 Yes See Memoria (Methylpred 1-26 Instructio l nisolone 4 20:13: ns, PO, Herm sienna MG Oral 00 Take by Tablet mouth as [Medrol]) } directed Pack on label., [Medrol X 6 day, # Dosepak] 1 Pack, 0 Refill(s), [facility] 2018-09 Yes 500 mg = 1 Memoria roberto 500 MG 1-26 tab, PO, l Oral Tablet 20:13: Q12H, X 10 [place] [Biaxin] 00 day, # 20 tab, 0 Refill(s), Pharmacy: [facility] #[id number] {2018-09 Yes See Memoria (Methylpred 1-26 Instructio l nisolone 4 20:13: ns, PO, Herm sienna MG Oral 00 Take by Tablet mouth as [Medrol]) } directed Pack on label., [Medrol X 6 day, # Dosepak] 1 Pack, 0 Refill(s), [facility] [place] [address] 2018-09 Yes 500 mg = 1 Memoria roberto 500 MG 1-26 tab, PO, l Oral Tablet 20:13: Q12H, X 10 [place] [Biaxin] 00 day, # 20 tab, 0 Refill(s), [facility] {2018-09 Yes See Memoria (Methylpred 1-26 Instructio l nisolone 4 20:13: ns, PO, Herm sienna MG Oral 00 Take by Tablet mouth as [Medrol]) } directed Pack on label., [Medrol X 6 day, # Dosepak] 1 Pack, 0 Refill(s), [facility] 2018-09 Yes 500 mg = 1 Memoria roberto 500 MG 1-26 tab, PO, l Oral Tablet 20:13: Q12H, X 10 [place] [Biaxin] 00 day, # 20 tab, 0 Refill(s), [id number] {2018-09 Yes See Memoria (Methylpred 1-26 Instructio l nisolone 4 20:13: ns, PO, Herm sienna MG Oral 00 Take by Tablet mouth as [Medrol]) } directed Pack on label., [Medrol X 6 day, # Dosepak] 1 Pack, 0 Refill(s), Pharmacy: [facility] #7120 Hydrochloro 2018-09 Yes See Memori a thiazide 25 0-21 Instructio l MG Oral 18:04: ns, 1 tab Ariana nn Tablet 00 PO daily x 3 days PRN swelling, # 30 tab, 2 Refill(s), Pharmacy: [facility] #7120 Hydrochloro 2018-09 Yes See Memori a thiazide 25 0-21 Instructio l MG Oral 18:04: ns, 1 tab Ariana nn Tablet 00 PO daily x 3 days PRN swelling, # 30 tab, 2 Refill(s), [facility] Hydrochloro 2019 Yes See Memori a thiazide 25 0-21 Instructio l MG Oral 18:04: ns, 1 tab Ariana nn Tablet 00 PO daily x 3 days PRN swelling, # 30 tab, 2 Refill(s), [facility] Hydrochloro 2019 Yes See Memori a thiazide 25 0-21 Instructio l MG Oral 18:04: ns, 1 tab Ariana nn Tablet 00 PO daily x 3 days PRN swelling, # 30 tab, 2 Refill(s), [facility] Hydrochloro 2019 Yes See Memori a thiazide 25 0-21 Instructio l MG Oral 18:04: ns, 1 tab Ariana nn Tablet 00 PO daily x 3 days PRN swelling, # 30 tab, 2 Refill(s), Pharmacy: [facility] #7120 Hydrochlor 2019 Yes See Memori a thiazide 25 0-21 Instructio l MG Oral 18:04: ns, 1 tab Ariana nn Tablet 00 PO daily x 3 days PRN swelling, # 30 tab, 2 Refill(s), [facility] Hydrochlor 2019 Yes See Memori a thiazide 25 0-21 Instructio l MG Oral 18:04: ns, 1 tab Ariana nn Tablet 00 PO daily x 3 days PRN swelling, # 30 tab, 2 Refill(s), [facility] Hydrochlor 2019 Yes See Memori a thiazide 25 0-21 Instructio l MG Oral 18:04: ns, 1 tab Ariana nn Tablet 00 PO daily x 3 days PRN swelling, # 30 tab, 2 Refill(s), [facility] Hydrochloro 2019- Yes See Memori a thiazide 25 0-21 Instructio l MG Oral 18:04: ns, 1 tab Ariana nn Tablet 00 PO daily x 3 days PRN swelling, # 30 tab, 2 Refill(s), Pharmacy: [facility] #7120 Hydrochloro 2019- Yes See Memori a thiazide 25 0-21 Instructio l MG Oral 18:04: ns, 1 tab Ariana nn Tablet 00 PO daily x 3 days PRN swelling, # 30 tab, 2 Refill(s), Pharmacy: [email or web address] #7120 Hydrochloro 2018-09 Yes See Memori a thiazide 25 0-21 Instructio l MG Oral 18:04: ns, 1 tab Ariana nn Tablet 00 PO daily x 3 days PRN swelling, # 30 tab, 2 Refill(s), Pharmacy: [facility] #7120 Hydrochloro 2018-09 Yes See Memori a thiazide 25 0-21 Instructio l MG Oral 18:04: ns, 1 tab Ariana nn Tablet 00 PO daily x 3 days PRN swelling, # 30 tab, 2 Refill(s), Pharmacy: [email or web address] #7120 Hydrochloro 2018-09 Yes See Memori a thiazide 25 0-21 Instructio l MG Oral 18:04: ns, 1 tab Ariana nn Tablet 00 PO daily x 3 days PRN swelling, # 30 tab, 2 Refill(s), Pharmacy: [facility] #7120 olopatadine Yes 1 drp, Catrachito darlin 1 MG/ML 06-04 BOTH EYES, l Ophthalmic 20:44: BID, X 10 He rmann Solution 00 day, # 5 [Patanol] ml, 0 Refill(s), Pharmacy: [facility] #7120 Hydrochloro Yes See Memori a thiazide 25 9-23 Instructio l MG Oral 20:44: ns, 1 tab Ariana nn Tablet 00 PO daily x 3 days PRN swelling, # 30 tab, 2 Refill(s), Pharmacy: [facility] #7120 olopatadine Yes 1 drp, Catrachito darlin 1 MG/ML 06-04 BOTH EYES, l Ophthalmic 20:44: BID, X 10 He rmann Solution 00 day, # 5 [Patanol] ml, 0 Refill(s), Pharmacy: [email or web address] #7120 Hydrochloro Yes See Memori a thiazide 25 9-23 Instructio l MG Oral 20:44: ns, 1 tab Ariana nn Tablet 00 PO daily x 3 days PRN swelling, # 30 tab, 2 Refill(s), Pharmacy: [facility] #7120 olopatadine Yes 1 drp, Catrachito darlin 1 MG/ML -23 BOTH EYES, l Ophthalmic 20:44: BID, X 10 He rmann Solution 00 day, # 5 [Patanol] ml, 0 Refill(s), Pharmacy: [facility] #7120 Hydrochloro Yes See Memori a thiazide 25 9-23 Instructio l MG Oral 20:44: ns, 1 tab Ariana nn Tablet 00 PO daily x 3 days PRN swelling, # 30 tab, 2 Refill(s), Pharmacy: [email or web address] #7120 olopatadine Yes 1 drp, Catrachito darlin 1 MG/ML 06-04 BOTH EYES, l Ophthalmic 20:44: BID, X 10 He rmann Solution 00 day, # 5 [Patanol] ml, 0 Refill(s), Pharmacy: [facility] #7120 Hydrochloro Yes See Memori a thiazide 25 9-23 Instructio l MG Oral 20:44: ns, 1 tab Ariana nn Tablet 00 PO daily x 3 days PRN swelling, # 30 tab, 2 Refill(s), Pharmacy: [facility] #7120 olopatadine Yes 1 drp, Catrachito darlin 1 MG/ML 06-04 BOTH EYES, l Ophthalmic 20:44: BID, X 10 He rmann Solution 00 day, # 5 [Patanol] ml, 0 Refill(s), Pharmacy: [facility] #7120 Hydrochloro Yes See Memori a thiazide 25 - Instructio l MG Oral 20:44: ns, 1 tab Ariana nn Tablet 00 PO daily x 3 days PRN swelling, # 30 tab, 2 Refill(s), Pharmacy: [facility] #7120 olopatadine Yes 1 drp, Catrachito darlin 1 MG/ML 06-04 BOTH EYES, l Ophthalmic 20:44: BID, X 10 He rmann Solution 00 day, # 5 [Patanol] ml, 0 Refill(s), Pharmacy: [email or web address] #7120 Hydrochloro Yes See Memori a thiazide 25 9-23 Instructio l MG Oral 20:44: ns, 1 tab Ariana nn Tablet 00 PO daily x 3 days PRN swelling, # 30 tab, 2 Refill(s), Pharmacy: [facility] #7120 olopatadine Yes 1 drp, Catrachito darlin 1 MG/ML 06-04 BOTH EYES, l Ophthalmic 20:44: BID, X 10 He rmann Solution 00 day, # 5 [Patanol] ml, 0 Refill(s), Pharmacy: [facility] #7120 Hydrochloro Yes See Memori a thiazide 25 9-23 Instructio l MG Oral 20:44: ns, 1 tab Ariana nn Tablet 00 PO daily x 3 days PRN swelling, # 30 tab, 2 Refill(s), Pharmacy: [facility] #7120 olopatadine Yes 1 drp, Catrachito darlin 1 MG/ML 06-04 BOTH EYES, l Ophthalmic 20:44: BID, X 10 He rmann Solution 00 day, # 5 [Patanol] ml, 0 Refill(s), Pharmacy: [facility] #7120 Hydrochloro Yes See Memori a thiazide 25 - Instructio l MG Oral 20:44: ns, 1 tab Ariana nn Tablet 00 PO daily x 3 days PRN swelling, # 30 tab, 2 Refill(s), Pharmacy: [facility] #7120 olopatadine Yes 1 drp, Catrachito darlin 1 MG/ML 06-04 BOTH EYES, l Ophthalmic 20:44: BID, X 10 He rmann Solution 00 day, # 5 [Patanol] ml, 0 Refill(s), Pharmacy: [facility] #7120 Hydrochloro Yes See Memori a thiazide 25 -23 Instructio l MG Oral 20:44: ns, 1 tab Ariana nn Tablet 00 PO daily x 3 days PRN swelling, # 30 tab, 2 Refill(s), Pharmacy: [facility] #7120 olopatadine Yes 1 drp, Catrachito darlin 1 MG/ML 06-04 BOTH EYES, l Ophthalmic 20:44: BID, X 10 He rmann Solution 00 day, # 5 [Patanol] ml, 0 Refill(s), Pharmacy: [facility] #7120 Hydrochloro Yes See Memori a thiazide 25 -23 Instructio l MG Oral 20:44: ns, 1 tab Ariana nn Tablet 00 PO daily x 3 days PRN swelling, # 30 tab, 2 Refill(s), Pharmacy: [facility] #7120 olopatadine Yes 1 drp, Catrachito darlin 1 MG/ML 06-04 BOTH EYES, l Ophthalmic 20:44: BID, X 10 He rmann Solution 00 day, # 5 [Patanol] ml, 0 Refill(s), Pharmacy: [facility] #7120 Hydrochloro Yes See Memori a thiazide 25 9-23 Instructio l MG Oral 20:44: ns, 1 tab Ariana nn Tablet 00 PO daily x 3 days PRN swelling, # 30 tab, 2 Refill(s), Pharmacy: [facility] #7120 olopatadine Yes 1 drp, Catrachito darlin 1 MG/ML 06-04 BOTH EYES, l Ophthalmic 20:44: BID, X 10 He rmann Solution 00 day, # 5 [Patanol] ml, 0 Refill(s), Pharmacy: [facility] #7120 Hydrochloro Yes See Memori a thiazide 25 9-23 Instructio l MG Oral 20:44: ns, 1 tab Ariana nn Tablet 00 PO daily x 3 days PRN swelling, # 30 tab, 2 Refill(s), Pharmacy: [facility] #7120 olopatadine Yes 1 drp, Catrachito darlin 1 MG/ML 06-04 BOTH EYES, l Ophthalmic 20:44: BID, X 10 He rmann Solution 00 day, # 5 [Patanol] ml, 0 Refill(s), Pharmacy: [facility] #7120 Hydrochloro Yes See Memori a thiazide 25 9-23 Instructio l MG Oral 20:44: ns, 1 tab Ariana nn Tablet 00 PO daily x 3 days PRN swelling, # 30 tab, 2 Refill(s), Pharmacy: [facility] #7120 tizanidine Yes 4 mg = 1 Mem oria 4 mg oral 6-24 tab, PO, l tablet 19:44: Bedtime, [place] 00 PRN muscle spasm, # 30 tab, 0 Refill(s), Pharmacy: [facility] #7120 { Yes See Memoria (Methylpred 6-24 Instructio l nisolone 4 19:44: ns, PO, as H ermann MG Oral 00 directed Tablet on package [Medrol]) } labeling. Pack Take with [Medrol food, # 1 Dosepak] Pack, 0 Refill(s), Pharmacy: [facility] #7120 tizanidine 2019-0 Yes 4 mg = 1 Mem oria 4 mg oral 6-24 tab, PO, l tablet 19:44: Bedtime, [place] 00 PRN muscle spasm, # 30 tab, 0 Refill(s), [facility] { Yes See Memoria (Methylpred 6-24 Instructio l nisolone 4 19:44: ns, PO, as H ermann MG Oral 00 directed Tablet on package [Medrol]) } labeling. Pack Take with [Medrol food, # 1 Dosepak] Pack, 0 Refill(s), [facility] tizanidine 2019-0 Yes 4 mg = 1 Mem oria 4 mg oral 6-24 tab, PO, l tablet 19:44: Bedtime, [place] 00 PRN muscle spasm, # 30 tab, 0 Refill(s), [id number] { Yes See Memoria (Methylpred 6-24 Instructio l nisolone 4 19:44: ns, PO, as H ermann MG Oral 00 directed Tablet on package [Medrol]) } labeling. Pack Take with [Medrol food, # 1 Dosepak] Pack, 0 Refill(s), [id number] tizanidine 2019-0 Yes 4 mg = 1 Mem oria 4 mg oral 6-24 tab, PO, l tablet 19:44: Bedtime, [place] 00 PRN muscle spasm, # 30 tab, 0 Refill(s), [id number] { Yes See Memoria (Methylpred 6-24 Instructio l nisolone 4 19:44: ns, PO, as H ermann MG Oral 00 directed Tablet on package [Medrol]) } labeling. Pack Take with [Medrol food, # 1 Dosepak] Pack, 0 Refill(s), [id number] tizanidine 2019-0 Yes 4 mg = 1 Mem oria 4 mg oral 6-24 tab, PO, l tablet 19:44: Bedtime, [place] 00 PRN muscle spasm, # 30 tab, 0 Refill(s), Pharmacy: [facility] #[id number] { Yes See Memoria (Methylpred 6-24 Instructio l nisolone 4 19:44: ns, PO, as H ermann MG Oral 00 directed Tablet on package [Medrol]) } labeling. Pack Take with [Medrol food, # 1 Dosepak] Pack, 0 Refill(s), Pharmacy: [facility] #[id number] tizanidine 2019- Yes 4 mg = 1 Mem oria 4 mg oral 6-24 tab, PO, l tablet 19:44: Bedtime, [place] 00 PRN muscle spasm, # 30 tab, 0 Refill(s), Pharmacy: [facility] #[id number] { Yes See Memoria (Methylpred 6-24 Instructio l nisolone 4 19:44: ns, PO, as H ermann MG Oral 00 directed Tablet on package [Medrol]) } labeling. Pack Take with [Medrol food, # 1 Dosepak] Pack, 0 Refill(s), Pharmacy: [email or web address] #[id number] tizanidine 2019- Yes 4 mg = 1 Mem oria 4 mg oral 6-24 tab, PO, l tablet 19:44: Bedtime, [place] 00 PRN muscle spasm, # 30 tab, 0 Refill(s), Pharmacy: [email or web address] #[id number] { Yes See Memoria (Methylpred 6-24 Instructio l nisolone 4 19:44: ns, PO, as H ermann MG Oral 00 directed Tablet on package [Medrol]) } labeling. Pack Take with [Medrol food, # 1 Dosepak] Pack, 0 Refill(s), Pharmacy: [email or web address] #[id number] tizanidine 2019-0 Yes 4 mg = 1 Mem oria 4 mg oral 6-24 tab, PO, l tablet 19:44: Bedtime, [place] 00 PRN muscle spasm, # 30 tab, 0 Refill(s), Pharmacy: [email or web address] #7120 { Yes See Memoria (Methylpred 6-24 Instructio l nisolone 4 19:44: ns, PO, as H ermann MG Oral 00 directed Tablet on package [Medrol]) } labeling. Pack Take with [Medrol food, # 1 Dosepak] Pack, 0 Refill(s), Pharmacy: [facility] #7120 tizanidine 2019-0 Yes 4 mg = 1 Mem oria 4 mg oral 6-24 tab, PO, l tablet 19:44: Bedtime, [place] 00 PRN muscle spasm, # 30 tab, 0 Refill(s), Pharmacy: [facility] #[id number] { Yes See Memoria (Methylpred 6-24 Instructio l nisolone 4 19:44: ns, PO, as H ermann MG Oral 00 directed Tablet on package [Medrol]) } labeling. Pack Take with [Medrol food, # 1 Dosepak] Pack, 0 Refill(s), [facility] tizanidine 2019-0 Yes 4 mg = 1 Mem oria 4 mg oral 6-24 tab, PO, l tablet 19:44: Bedtime, [place] 00 PRN muscle spasm, # 30 tab, 0 Refill(s), Pharmacy: [facility] #[id number] { Yes See Memoria (Methylpred 6-24 Instructio l nisolone 4 19:44: ns, PO, as H ermann MG Oral 00 directed Tablet on package [Medrol]) } labeling. Pack Take with [Medrol food, # 1 Dosepak] Pack, 0 Refill(s), Pharmacy: [facility] #7120 tizanidine 2018-0 Yes 4 mg = 1 Mem oria 4 mg oral 6-24 tab, PO, l tablet 19:44: Bedtime, [place] 00 PRN muscle spasm, # 30 tab, 0 Refill(s), Pharmacy: [facility] #7120 { Yes See Memoria (Methylpred 6-24 Instructio l nisolone 4 19:44: ns, PO, as H ermann MG Oral 00 directed Tablet on package [Medrol]) } labeling. Pack Take with [Medrol food, # 1 Dosepak] Pack, 0 Refill(s), Pharmacy: [facility] #7120 tizanidine 2019-0 Yes 4 mg = 1 Mem oria 4 mg oral 6-24 tab, PO, l tablet 19:44: Bedtime, [place] 00 PRN muscle spasm, # 30 tab, 0 Refill(s), [id number] { Yes See Memoria (Methylpred 6-24 Instructio l nisolone 4 19:44: ns, PO, as H ermann MG Oral 00 directed Tablet on package [Medrol]) } labeling. Pack Take with [Medrol food, # 1 Dosepak] Pack, 0 Refill(s), Pharmacy: [id number] tizanidine 2018- Yes 4 mg = 1 Mem oria 4 mg oral 6-24 tab, PO, l tablet 19:44: Bedtime, [place] 00 PRN muscle spasm, # 30 tab, 0 Refill(s), Pharmacy: [facility] #7120 { Yes See Memoria (Methylpred 6-24 Instructio l nisolone 4 19:44: ns, PO, as H ermann MG Oral 00 directed Tablet on package [Medrol]) } labeling. Pack Take with [Medrol food, # 1 Dosepak] Pack, 0 Refill(s), Pharmacy: [facility] #7120 valacyclovi 2018-0 Yes 500 mg = 1 Memoria r 500 MG 5-30 tab, PO, l Oral Tablet 18:52: Daily, # He rmann [Valtrex] 00 90 tab, 3 Refill(s), Pharmacy: [facility] #7120 valacyclovi 2018-0 Yes 500 mg = 1 Memoria r 500 MG 5-30 tab, PO, l Oral Tablet 18:52: Daily, # He rmann [Valtrex] 00 90 tab, 3 Refill(s), Pharmacy: [facility] #7120 valacyclovi 2018- Yes 500 mg = 1 Memoria r 500 MG 5-30 tab, PO, l Oral Tablet 18:52: Daily, # He rmann [Valtrex] 00 90 tab, 3 Refill(s), Pharmacy: [facility] #7120 valacyclovi 2018-0 Yes 500 mg = 1 Memoria r 500 MG 5-30 tab, PO, l Oral Tablet 18:52: Daily, # He rmann [Valtrex] 00 90 tab, 3 Refill(s), Pharmacy: [facility] #7120 valacyclovi 2019-0 Yes 500 mg = 1 Memoria r 500 MG 5-30 tab, PO, l Oral Tablet 18:52: Daily, # He rmann [Valtrex] 00 90 tab, 3 Refill(s), [facility] valacyclovi 2019-0 Yes 500 mg = 1 Memoria r 500 MG 5-30 tab, PO, l Oral Tablet 18:52: Daily, # Jarad rmann [Valtrex] 00 90 tab, 3 Refill(s), [facility] valacyclovi 2019-0 Yes 500 mg = 1 Memoria r 500 MG 5-30 tab, PO, l Oral Tablet 18:52: Daily, # Jarad rmann [Valtrex] 00 90 tab, 3 Refill(s), Pharmacy: [facility] #7120 valacyclovi 2019-0 Yes 500 mg = 1 Memoria r 500 MG 5-30 tab, PO, l Oral Tablet 18:52: Daily, # Jarad rmann [Valtrex] 00 90 tab, 3 Refill(s), Pharmacy: [facility] #7120 valacyclovi 2019-0 Yes 500 mg = 1 Memoria r 500 MG 5-30 tab, PO, l Oral Tablet 18:52: Daily, # Jarad rmann [Valtrex] 00 90 tab, 3 Refill(s), Pharmacy: [facility] #7120 valacyclovi 2019-0 Yes 500 mg = 1 Memoria r 500 MG 5-30 tab, PO, l Oral Tablet 18:52: Daily, # Jarad rmann [Valtrex] 00 90 tab, 3 Refill(s), [id number] valacyclovi 2019-0 Yes 500 mg = 1 Memoria r 500 MG 5-30 tab, PO, l Oral Tablet 18:52: Daily, # Jarad rmann [Valtrex] 00 90 tab, 3 Refill(s), Pharmacy: [facility] #7120 valacyclovi 2019-0 Yes 500 mg = 1 Memoria r 500 MG 5-30 tab, PO, l Oral Tablet 18:52: Daily, # Jarad rmann [Valtrex] 00 90 tab, 3 Refill(s), Pharmacy: [facility] #7120 valacyclovi 2019-0 Yes 500 mg = 1 Memoria r 500 MG 5-30 tab, PO, l Oral Tablet 18:52: Daily, # Jarad rmann [Valtrex] 00 90 tab, 3 Refill(s), Pharmacy: [facility] #7120 pantoprazol 2019-0 Yes = 1 tab, Me moria e 40 mg 5-30 PO, Daily, l oral 18:46: # 90 tab, [place] enteric 19 3 coated Refill(s), tablet Pharmacy: [facility] #7120 pantoprazol 2019-0 Yes = 1 tab, Me moria e 40 mg 5-30 PO, Daily, l oral 18:46: # 90 tab, [place] enteric 19 3 coated Refill(s), tablet Pharmacy: [facility] #7120 pantoprazol 2019-0 Yes = 1 tab, Me moria e 40 mg 5-30 PO, Daily, l oral 18:46: # 90 tab, [place] enteric 19 3 coated Refill(s), tablet Pharmacy: [facility] #7120 pantoprazol 2019-0 Yes = 1 tab, Me moria e 40 mg 5-30 PO, Daily, l oral 18:46: # 90 tab, [place] enteric 19 3 coated Refill(s), tablet Pharmacy: [facility] #7120 pantoprazol 2019-0 Yes = 1 tab, Me moria e 40 mg 5-30 PO, Daily, l oral 18:46: # 90 tab, [place] enteric 19 3 coated Refill(s), tablet Pharmacy: [facility] #7120 pantoprazol 2019-0 Yes = 1 tab, Me moria e 40 mg 5-30 PO, Daily, l oral 18:46: # 90 tab, [place] enteric 19 3 coated Refill(s), tablet Pharmacy: [facility] #7120 pantoprazol 2019-0 Yes = 1 tab, Me moria e 40 mg 5-30 PO, Daily, l oral 18:46: # 90 tab, [place] enteric 19 3 coated Refill(s), tablet Pharmacy: [facility] #7120 pantoprazol 2019-0 Yes = 1 tab, Me moria e 40 mg 5-30 PO, Daily, l oral 18:46: # 90 tab, [place] enteric 19 3 coated Refill(s), tablet Pharmacy: [facility] #[id number] pantoprazol 2019-0 Yes = 1 tab, Me moria e 40 mg 5-30 PO, Daily, l oral 18:46: # 90 tab, [place] enteric 19 3 coated Refill(s), [facility] pantoprazol 2019-0 Yes = 1 tab, Me moria e 40 mg 5-30 PO, Daily, l oral 18:46: # 90 tab, [place] enteric 19 3 coated Refill(s), tablet Pharmacy: [facility] #7120 pantoprazol 2018-0 Yes = 1 tab, Me moria e 40 mg 5-30 PO, Daily, l oral 18:46: # 90 tab, [place] enteric 19 3 coated Refill(s), [facility] pantoprazol 2018-0 Yes = 1 tab, Me moria e 40 mg 5-30 PO, Daily, l oral 18:46: # 90 tab, [place] enteric 19 3 coated Refill(s), tablet [facility] pantoprazol 2018-0 Yes = 1 tab, Me moria e 40 mg 5-30 PO, Daily, l oral 18:46: # 90 tab, [place] enteric 19 3 coated Refill(s), tablet [facility] albuterol 2018-0 Yes 2 puff, Memor ia 90 mcg/inh 5-30 INHALATION l inhalation 18:46: , Q4H, PRN H ermann aerosol 18 for wheezing, # 9 gm, 2 Refill(s), [facility] albuterol 2018-0 Yes 2 puff, Memor ia 90 mcg/inh 5-30 INHALATION l inhalation 18:46: , Q4H, PRN H ermann aerosol 18 for wheezing, # 9 gm, 2 Refill(s), [facility] albuterol 2018-0 Yes 2 puff, Memor ia 90 mcg/inh 5-30 INHALATION l inhalation 18:46: , Q4H, PRN H ermann aerosol 18 for wheezing, # 9 gm, 2 Refill(s), [facility] albuterol 2018-0 Yes 2 puff, Memor ia 90 mcg/inh 5-30 INHALATION l inhalation 18:46: , Q4H, PRN H ermann aerosol 18 for wheezing, # 9 gm, 2 Refill(s), [id number] albuterol 2019-0 Yes 2 puff, Memor ia 90 mcg/inh 5-30 INHALATION l inhalation 18:46: , Q4H, PRN H ermann aerosol 18 for wheezing, # 9 gm, 2 Refill(s), Pharmacy: [facility] #7120 albuterol 2018-0 Yes 2 puff, Memor ia 90 mcg/inh 5-30 INHALATION l inhalation 18:46: , Q4H, PRN H ermann aerosol 18 for wheezing, # 9 gm, 2 Refill(s), Pharmacy: [facility] #7120 albuterol 2018-0 Yes 2 puff, Memor ia 90 mcg/inh 5-30 INHALATION l inhalation 18:46: , Q4H, PRN H ermann aerosol 18 for wheezing, # 9 gm, 2 Refill(s), Pharmacy: [facility] #7120 albuterol 2018-0 Yes 2 puff, Memor ia 90 mcg/inh 5-30 INHALATION l inhalation 18:46: , Q4H, PRN H ermann aerosol 18 for wheezing, # 9 gm, 2 Refill(s), Pharmacy: [facility] #7120 albuterol 2018-0 Yes 2 puff, Memor ia 90 mcg/inh 5-30 INHALATION l inhalation 18:46: , Q4H, PRN H ermann aerosol 18 for wheezing, # 9 gm, 2 Refill(s), Pharmacy: [facility] #7120 albuterol 2018-0 Yes 2 puff, Memor ia 90 mcg/inh 5-30 INHALATION l inhalation 18:46: , Q4H, PRN H ermann aerosol 18 for wheezing, # 9 gm, 2 Refill(s), Pharmacy: [facility] #7120 albuterol 2018-0 Yes 2 puff, Memor ia 90 mcg/inh 5-30 INHALATION l inhalation 18:46: , Q4H, PRN H ermann aerosol 18 for wheezing, # 9 gm, 2 Refill(s), Pharmacy: [facility] #7120 albuterol 2018-0 Yes 2 puff, Memor ia 90 mcg/inh 5-30 INHALATION l inhalation 18:46: , Q4H, PRN H ermann aerosol 18 for wheezing, # 9 gm, 2 Refill(s), Pharmacy: [facility] #7120 albuterol 2018-0 Yes 2 puff, Memor ia 90 mcg/inh 5-30 INHALATION l inhalation 18:46: , Q4H, PRN H ermann aerosol 18 for wheezing, # 9 gm, 2 Refill(s), [facility] pantoprazol 2018- Yes = 1 tab, Me moria e 40 mg 3-27 PO, Daily, l oral 23:14: # 30 tab, [place] enteric 55 0 coated Refill(s), tablet Pharmacy: [facility] #[id number] pantoprazol 2018- Yes = 1 tab, Me moria e 40 mg 3-27 PO, Daily, l oral 23:14: # 30 tab, [place] enteric 55 0 coated Refill(s), tablet [facility] pantoprazol 2018- Yes = 1 tab, Me moria e 40 mg 3-27 PO, Daily, l oral 23:14: # 30 tab, [place] enteric 55 0 coated Refill(s), tablet Pharmacy: [facility] #7120 pantoprazol 2018- Yes = 1 tab, Me moria e 40 mg 3-27 PO, Daily, l oral 23:14: # 30 tab, [place] enteric 55 0 coated Refill(s), tablet [facility] pantoprazol 2018- Yes = 1 tab, Me moria e 40 mg 3-27 PO, Daily, l oral 23:14: # 30 tab, [place] enteric 55 0 coated Refill(s), tablet Pharmacy: [facility] #7120 pantoprazol 2018- Yes = 1 tab, Me moria e 40 mg 3-27 PO, Daily, l oral 23:14: # 30 tab, [place] enteric 55 0 coated Refill(s), [id number] pantoprazol 2018-0 Yes = 1 tab, Me moria e 40 mg 3-27 PO, Daily, l oral 23:14: # 30 tab, [place] enteric 55 0 coated Refill(s), tablet Pharmacy: [facility] #[id number] pantoprazol 2018- Yes = 1 tab, Me moria e 40 mg 3-27 PO, Daily, l oral 23:14: # 30 tab, [place] enteric 55 0 coated Refill(s), tablet Pharmacy: [facility] #[id number] pantoprazol 2018- Yes = 1 tab, Me moria e 40 mg 3-27 PO, Daily, l oral 23:14: # 30 tab, [place] enteric 55 0 coated Refill(s), tablet Pharmacy: [facility] #7120 pantoprazol Yes = 1 tab, Me moria e 40 mg 3-27 PO, Daily, l oral 23:14: # 30 tab, [place] enteric 55 0 coated Refill(s), tablet Pharmacy: [facility] #7120 pantoprazol Yes = 1 tab, Me moria e 40 mg 3-27 PO, Daily, l oral 23:14: # 30 tab, [place] enteric 55 0 coated Refill(s), tablet Pharmacy: [facility] #[id number] pantoprazol 2018- Yes = 1 tab, Me moria e 40 mg 3-27 PO, Daily, l oral 23:14: # 30 tab, [place] enteric 55 0 coated Refill(s), tablet Pharmacy: [facility] #[id number] pantoprazol Yes = 1 tab, Me moria e 40 mg 3-27 PO, Daily, l oral 23:14: # 30 tab, [place] enteric 55 0 coated Refill(s), tablet Pharmacy: [facility] #[id number] pantoprazol 2017-09 No 40 mg = 1 M emoria e 40 MG 0-04 tab, PO, l Enteric 19:37: Daily, # Sherwin n Coated 00 90 tab, 1 Tablet Refill(s), [Protonix] Pharmacy: [facility] #[id number] pantoprazol 2017-09 No 40 mg = 1 M emoria e 40 MG 0-04 tab, PO, l Enteric 19:37: Daily, # [place] n Coated 00 90 tab, 1 Tablet Refill(s), [Protonix] Pharmacy: [facility] #[id number] pantoprazol 2017-09 No 40 mg = 1 M emoria e 40 MG 0-04 tab, PO, l Enteric 19:37: Daily, # [place] n Coated 00 90 tab, 1 Tablet Refill(s), [Protonix] Pharmacy: [facility] #[id number] pantoprazol 2017-09 No 40 mg = 1 M emoria e 40 MG 0-04 tab, PO, l Enteric 19:37: Daily, # [place] n Coated 00 90 tab, 1 Tablet Refill(s), [Protonix] [facility] pantoprazol 2018- No 40 mg = 1 M emoria e 40 MG 0-04 tab, PO, l Enteric 19:37: Daily, # [place] n Coated 00 90 tab, 1 Tablet Refill(s), [Protonix] [id number] pantoprazol 2018- No 40 mg = 1 M emoria e 40 MG 0-04 tab, PO, l Enteric 19:37: Daily, # [place] n Coated 00 90 tab, 1 Tablet Refill(s), [Protonix] Pharmacy: [facility] #7120 pantoprazol 2017- No 40 mg = 1 M emoria e 40 MG 0-04 tab, PO, l Enteric 19:37: Daily, # [place] n Coated 00 90 tab, 1 Tablet Refill(s), [Protonix] [facility] pantoprazol 2017-09 No 40 mg = 1 M emoria e 40 MG 0-04 tab, PO, l Enteric 19:37: Daily, # Sherwin n Coated 00 90 tab, 1 Tablet Refill(s), [Protonix] [facility] pantoprazol 2017-09 No 40 mg = 1 M emoria e 40 MG 0-04 tab, PO, l Enteric 19:37: Daily, # [place] n Coated 00 90 tab, 1 Tablet Refill(s), [Protonix] Pharmacy: [facility] #7120 pantoprazol 2017-09 No 40 mg = 1 M emoria e 40 MG 0-04 tab, PO, l Enteric 19:37: Daily, # Sherwin n Coated 00 90 tab, 1 Tablet Refill(s), [Protonix] Pharmacy: [facility] #7120 pantoprazol 2018- No 40 mg = 1 M emoria e 40 MG 0-04 tab, PO, l Enteric 19:37: Daily, # Sherwin n Coated 00 90 tab, 1 Tablet Refill(s), [Protonix] Pharmacy: [facility] #7120 pantoprazol 2017- No 40 mg = 1 M emoria e 40 MG 0-04 tab, PO, l Enteric 19:37: Daily, # Sherwin n Coated 00 90 tab, 1 Tablet Refill(s), [Protonix] Pharmacy: [facility] #7120 pantoprazol 2018- No 40 mg = 1 Max stein e 40 MG 0-04 tab, PO, l Enteric 19:37: Daily, # Sherwin n Coated 00 90 tab, 1 Tablet Refill(s), [Protonix] Pharmacy: [facility] #7120 Ciprofloxac 2017-0 Yes 4 drp, Catrachito darlin in 3 MG/ML 6-25 LEFT EAR, l / 16:38: BID, X 7 [place] Dexamethaso 00 day, # 1 ne 1 MG/ML btl, 0 Otic Refill(s), Suspension Pharmacy: [Ciprodex] [facility]7120 Ciprofloxac 2017-0 Yes 4 drp, Catrachito darlin in 3 MG/ML 6-25 LEFT EAR, l / 16:38: BID, X 7 [place] Dexamethaso 00 day, # 1 ne 1 MG/ML btl, 0 Otic Refill(s), Suspension Pharmacy: [Ciprodex] [id number] Ciprofloxac 2017-0 Yes 4 drp, Catrachito darlin in 3 MG/ML 6-25 LEFT EAR, l / 16:38: BID, X 7 [place] Dexamethaso 00 day, # 1 ne 1 MG/ML btl, 0 Otic Refill(s), Suspension Pharmacy: [Ciprodex] [facility] Ciprofloxac 2017-0 Yes 4 drp, Catrachito darlin in 3 MG/ML 6-25 LEFT EAR, l / 16:38: BID, X 7 [place] Dexamethaso 00 day, # 1 ne 1 MG/ML btl, 0 Otic Refill(s), Suspension Pharmacy: [Ciprodex] [facility] Ciprofloxac 2017-0 Yes 4 drp, Catrachito darlin in 3 MG/ML 6-25 LEFT EAR, l / 16:38: BID, X 7 [place] Dexamethaso 00 day, # 1 ne 1 MG/ML btl, 0 Otic Refill(s), Suspension Pharmacy: [Ciprodex] [facility][id number] Ciprofloxac 2017-0 Yes 4 drp, Catrachito darlin in 3 MG/ML 6-25 LEFT EAR, l 16:38: BID, X 7 [place] Dexamethaso 00 day, # 1 ne 1 MG/ML btl, 0 Otic Refill(s), Suspension Pharmacy: [Ciprodex] [facility] Ciprofloxac 2017-0 Yes 4 drp, Catrachito darlin in 3 MG/ML 6-25 LEFT EAR, l / 16:38: BID, X 7 [place] Dexamethaso 00 day, # 1 ne 1 MG/ML btl, 0 Otic Refill(s), Suspension Pharmacy: [Ciprodex] [id number] Ciprofloxac 2017-0 Yes 4 drp, Catrachito darlin in 3 MG/ML 6-25 LEFT EAR, l 16:38: BID, X 7 [place] Dexamethaso 00 day, # 1 ne 1 MG/ML btl, 0 Otic Refill(s), Suspension Pharmacy: [Ciprodex] [facility] Ciprofloxac 2017-0 Yes 4 drp, Catrachito darlin in 3 MG/ML 6-25 LEFT EAR, l 16:38: BID, X 7 [place] Dexamethaso 00 day, # 1 ne 1 MG/ML btl, 0 Otic Refill(s), Suspension Pharmacy: [Ciprodex] [id number] Ciprofloxac 2017-0 Yes 4 drp, Catrachito darlin in 3 MG/ML 6-25 LEFT EAR, l 16:38: BID, X 7 [place] Dexamethaso 00 day, # 1 ne 1 MG/ML btl, 0 Otic Refill(s), Suspension Pharmacy: [Ciprodex] [id number] Ciprofloxac 2017-0 Yes 4 drp, Catrachito darlin in 3 MG/ML 6-25 LEFT EAR, l 16:38: BID, X 7 [place] Dexamethaso 00 day, # 1 ne 1 MG/ML btl, 0 Otic Refill(s), Suspension Pharmacy: [Ciprodex] [id number] Ciprofloxac 2017-0 Yes 4 drp, Catrachito darlin in 3 MG/ML 6-25 LEFT EAR, l / 16:38: BID, X 7 [place] Dexamethaso 00 day, # 1 ne 1 MG/ML btl, 0 Otic Refill(s), Suspension Pharmacy: [Ciprodex] [facility] #7120 Ciprofloxac 2018-0 Yes 4 drp, Catrachito darlin in 3 MG/ML 6-25 LEFT EAR, l / 16:38: BID, X 7 [place] Dexamethaso 00 day, # 1 ne 1 MG/ML btl, 0 Otic Refill(s), Suspension Pharmacy: [Ciprodex] [facility] #7120 Aspirin 81 2018-0 Yes 81 mg = 1 Me moria MG Enteric 6-14 tab, PO, l Coated 13:11: Daily, [place] Tablet 00 OTC, # 999,999 tab, 0 Refill(s), other Aspirin 81 2018-0 Yes 81 mg = 1 Me moria MG Enteric 6-14 tab, PO, l Coated 13:11: Daily, [place] Tablet 00 OTC, # 999,999 tab, 0 Refill(s), other Aspirin 81 2018-0 Yes 81 mg = 1 Me moria MG Enteric 6-14 tab, PO, l Coated 13:11: Daily, [place] Tablet 00 OTC, # 999,999 tab, 0 Refill(s), other Aspirin 81 2018-0 Yes 81 mg = 1 Me moria MG Enteric 6-14 tab, PO, l Coated 13:11: Daily, [place] Tablet 00 OTC, # 999,999 tab, 0 Refill(s), other Aspirin 81 2018-0 Yes 81 mg = 1 Me moria MG Enteric 6-14 tab, PO, l Coated 13:11: Daily, [place] Tablet 00 OTC, # 999,999 tab, 0 Refill(s), other Aspirin 81 2018-0 Yes 81 mg = 1 Me moria MG Enteric 6-14 tab, PO, l Coated 13:11: Daily, [place] Tablet 00 OTC, # 999,999 tab, 0 Refill(s), other Aspirin 81 2018-0 Yes 81 mg = 1 Me moria MG Enteric 6-14 tab, PO, l Coated 13:11: Daily, [place] Tablet 00 OTC, # 999,999 tab, 0 Refill(s), other Aspirin 81 2018-0 Yes 81 mg = 1 Me moria MG Enteric 6-14 tab, PO, l Coated 13:11: Daily, [place] Tablet 00 OTC, # 999,999 tab, 0 Refill(s), other Aspirin 81 2018-0 Yes 81 mg = 1 Me moria MG Enteric 6-14 tab, PO, l Coated 13:11: Daily, [place] Tablet 00 OTC, # 999,999 tab, 0 Refill(s), other Aspirin 81 2018-0 Yes 81 mg = 1 Me moria MG Enteric 6-14 tab, PO, l Coated 13:11: Daily, [place] Tablet 00 OTC, # 999,999 tab, 0 Refill(s), other Aspirin 81 2018-0 Yes 81 mg = 1 Me moria MG Enteric 6-14 tab, PO, l Coated 13:11: Daily, [place] Tablet 00 OTC, # 999,999 tab, 0 Refill(s), other Aspirin 81 2018-0 Yes 81 mg = 1 Me moria MG Enteric 6-14 tab, PO, l Coated 13:11: Daily, [place] Tablet 00 OTC, # 999,999 tab, 0 Refill(s), other Aspirin 81 2018-0 Yes 81 mg = 1 Me moria MG Enteric 6-14 tab, PO, l Coated 13:11: Daily, [place] Tablet 00 OTC, # 999,999 tab, 0 Refill(s), other albuterol 2018-0 Yes 2 puff, Memor ia 90 mcg/inh 6-14 INHALATION l inhalation 13:09: , Q4H, PRN H ermann aerosol 00 for wheezing, # 9 gm, 2 Refill(s), Pharmacy: [facility] #[id number] albuterol 2017-0 Yes 2 puff, Memor ia 90 mcg/inh 6-14 INHALATION l inhalation 13:09: , Q4H, PRN H ermann aerosol 00 for wheezing, # 9 gm, 2 Refill(s), Pharmacy: [facility] #7120 albuterol 2018-0 Yes 2 puff, Memor ia 90 mcg/inh 6-14 INHALATION l inhalation 13:09: , Q4H, PRN H ermann aerosol 00 for wheezing, # 9 gm, 2 Refill(s), Pharmacy: [facility] #7120 albuterol 2018-0 Yes 2 puff, Memor ia 90 mcg/inh 6-14 INHALATION l inhalation 13:09: , Q4H, PRN H ermann aerosol 00 for wheezing, # 9 gm, 2 Refill(s), Pharmacy: [facility] #7120 albuterol 2017-0 Yes 2 puff, Memor ia 90 mcg/inh 6-14 INHALATION l inhalation 13:09: , Q4H, PRN H ermann aerosol 00 for wheezing, # 9 gm, 2 Refill(s), Pharmacy: [facility] #7120 albuterol 2017-0 Yes 2 puff, Memor ia 90 mcg/inh 6-14 INHALATION l inhalation 13:09: , Q4H, PRN H ermann aerosol 00 for wheezing, # 9 gm, 2 Refill(s), Pharmacy: [facility] #7120 albuterol 2017-0 Yes 2 puff, Memor ia 90 mcg/inh 6-14 INHALATION l inhalation 13:09: , Q4H, PRN H ermann aerosol 00 for wheezing, # 9 gm, 2 Refill(s), Pharmacy: [facility] #7120 albuterol 2017-0 Yes 2 puff, Memor ia 90 mcg/inh 6-14 INHALATION l inhalation 13:09: , Q4H, PRN H ermann aerosol 00 for wheezing, # 9 gm, 2 Refill(s), Pharmacy: [facility] #[id number] albuterol 2017-0 Yes 2 puff, Memor ia 90 mcg/inh 6-14 INHALATION l inhalation 13:09: , Q4H, PRN H ermann aerosol 00 for wheezing, # 9 gm, 2 Refill(s), Pharmacy: [facility] #[id number] albuterol 2017-0 Yes 2 puff, Memor ia 90 mcg/inh 6-14 INHALATION l inhalation 13:09: , Q4H, PRN H ermann aerosol 00 for wheezing, # 9 gm, 2 Refill(s), Pharmacy: [facility] #[id number] albuterol 2018-0 Yes 2 puff, Memor ia 90 mcg/inh 6-14 INHALATION l inhalation 13:09: , Q4H, PRN H ermann aerosol 00 for wheezing, # 9 gm, 2 Refill(s), Pharmacy: [facility] #[id number] albuterol 2018-0 Yes 2 puff, Memor ia 90 mcg/inh 6-14 INHALATION l inhalation 13:09: , Q4H, PRN H ermann aerosol 00 for wheezing, # 9 gm, 2 Refill(s), Pharmacy: [facility] #[id number] albuterol 2017-0 Yes 2 puff, Memor ia 90 mcg/inh 6-14 INHALATION l inhalation 13:09: , Q4H, PRN H ermann aerosol 00 for wheezing, # 9 gm, 2 Refill(s), [id number]ol 2018- Yes 40 mg = 1 M emoria e 40 MG 5-04 tab, PO, l Enteric 18:43: Daily, # Sherwin n Coated 51 30 tab, 0 Tablet Refill(s), [Protonix] [id number] pantoprazol 2017- Yes 40 mg = 1 M emoria e 40 MG 5-04 tab, PO, l Enteric 18:43: Daily, # Sherwin n Coated 51 30 tab, 0 Tablet Refill(s), [Protonix] [id number] pantoprazol 2018- Yes 40 mg = 1 M emoria e 40 MG 5-04 tab, PO, l Enteric 18:43: Daily, # Sherwin n Coated 51 30 tab, 0 Tablet Refill(s), [Protonix] [id number] pantoprazol 2018- Yes 40 mg = 1 M emoria e 40 MG 5-04 tab, PO, l Enteric 18:43: Daily, # Sherwin n Coated 51 30 tab, 0 Tablet Refill(s), [Protonix] [id number] pantoprazol 2018- Yes 40 mg = 1 M emoria e 40 MG 5-04 tab, PO, l Enteric 18:43: Daily, # Sherwin n Coated 51 30 tab, 0 Tablet Refill(s), [Protonix] [id number] pantoprazol 2018-0 Yes 40 mg = 1 M emoria e 40 MG 5-04 tab, PO, l Enteric 18:43: Daily, # Sherwin n Coated 51 30 tab, 0 Tablet Refill(s), [Protonix] [id number] pantoprazol 2018- Yes 40 mg = 1 M emoria e 40 MG 5-04 tab, PO, l Enteric 18:43: Daily, # Sherwin n Coated 51 30 tab, 0 Tablet Refill(s), [Protonix] [id number] pantoprazol 2018- Yes 40 mg = 1 M emoria e 40 MG 5-04 tab, PO, l Enteric 18:43: Daily, # [place] n Coated 51 30 tab, 0 Tablet Refill(s), [[facility]] [id number] pantoprazol 2018- Yes 40 mg = 1 M emoria e 40 MG 5-04 tab, PO, l Enteric 18:43: Daily, # [place] n Coated 51 30 tab, 0 Tablet Refill(s), [Protonix] [id number] pantoprazol 2017- Yes 40 mg = 1 M emoria e 40 MG 5-04 tab, PO, l Enteric 18:43: Daily, # [place] n Coated 51 30 tab, 0 Tablet Refill(s), [Protonix] [id number] pantoprazol 2017- Yes 40 mg = 1 M emoria e 40 MG 5-04 tab, PO, l Enteric 18:43: Daily, # [place] n Coated 51 30 tab, 0 Tablet Refill(s), [Protonix] [facility] pantoprazol 2017- Yes 40 mg = 1 M emoria e 40 MG 5-04 tab, PO, l Enteric 18:43: Daily, # [place] n Coated 51 30 tab, 0 Tablet Refill(s), [Protonix] [id number] pantoprazol 2017- Yes 40 mg = 1 M emoria e 40 MG 5-04 tab, PO, l Enteric 18:43: Daily, # [place] n Coated 51 30 tab, 0 Tablet Refill(s), [Protonix] [facility] Fluticasone 2017- Yes See Memori a propionate 1-02 Instructio l 0.05 15:21: ns, # 16 [place] MG/ACTUAT 09 mL, Metered Refill(s) Dose Nasal 1, INHALE [place] 2 SPRAYS IN EACH NOSTRIL ONCE DAILY NEEDED FOR CONGESTION ., [facility] Fluticasone Yes See Memori a propionate 1-02 Instructio l 0.05 15:21: ns, # 16 [place] MG/ACTUAT 09 mL, Metered Refill(s) Dose Nasal 1, INHALE [place] 2 SPRAYS IN EACH NOSTRIL ONCE DAILY NEEDED FOR CONGESTION ., [facility] Fluticasone Yes See Memori a propionate 1-02 Instructio l 0.05 15:21: ns, # 16 [place] MG/ACTUAT 09 mL, Metered Refill(s) Dose Nasal 1, INHALE [place] 2 SPRAYS IN EACH NOSTRIL ONCE DAILY NEEDED FOR CONGESTION ., [facility] Fluticasone Yes See Memori a propionate 1-02 Instructio l 0.05 15:21: ns, # 16 [place] MG/ACTUAT 09 mL, Metered Refill(s) Dose Nasal 1, INHALE [place] 2 SPRAYS IN EACH NOSTRIL ONCE DAILY NEEDED FOR CONGESTION ., [facility] Fluticasone Yes See Memori a propionate 1-02 Instructio l 0.05 15:21: ns, # 16 [place] MG/ACTUAT 09 mL, Metered Refill(s) Dose Nasal 1, INHALE [place] 2 SPRAYS IN EACH NOSTRIL ONCE DAILY NEEDED FOR CONGESTION ., [facility] Fluticasone Yes See Memori a propionate 1-02 Instructio l 0.05 15:21: ns, # 16 [place] MG/ACTUAT 09 mL, Metered Refill(s) Dose Nasal 1, INHALE [place] 2 SPRAYS IN EACH NOSTRIL ONCE DAILY NEEDED FOR CONGESTION ., [facility] Fluticasone Yes See Memori a propionate 1-02 Instructio l 0.05 15:21: ns, # 16 [place] MG/ACTUAT 09 mL, Metered Refill(s) Dose Nasal 1, INHALE [place] 2 SPRAYS IN EACH NOSTRIL ONCE DAILY NEEDED FOR CONGESTION ., [email or web address] Fluticasone 2018-0 Yes See Memori a propionate 1-02 Instructio l 0.05 15:21: ns, # 16 [place] MG/ACTUAT 09 mL, Metered Refill(s) Dose Nasal 1, INHALE [place] 2 SPRAYS IN EACH NOSTRIL ONCE DAILY NEEDED FOR CONGESTION ., [facility] Fluticasone Yes See Memori a propionate 1-02 Instructio l 0.05 15:21: ns, # 16 [place] MG/ACTUAT 09 mL, Metered Refill(s) Dose Nasal 1, INHALE [place] 2 SPRAYS IN EACH NOSTRIL ONCE DAILY NEEDED FOR CONGESTION ., [facility] Fluticasone Yes See Memori a propionate 1-02 Instructio l 0.05 15:21: ns, # 16 [place] MG/ACTUAT 09 mL, Metered Refill(s) Dose Nasal 1, INHALE [place] 2 SPRAYS IN EACH NOSTRIL ONCE DAILY NEEDED FOR CONGESTION ., [facility] Fluticasone Yes See Memori a propionate 1-02 Instructio l 0.05 15:21: ns, # 16 [place] MG/ACTUAT 09 mL, Metered Refill(s) Dose Nasal 1, INHALE [place] 2 SPRAYS IN EACH NOSTRIL ONCE DAILY NEEDED FOR CONGESTION ., [facility] Fluticasone Yes See Memori a propionate 1-02 Instructio l 0.05 15:21: ns, # 16 [place] MG/ACTUAT 09 mL, Metered Refill(s) Dose Nasal 1, INHALE [place] 2 SPRAYS IN EACH NOSTRIL ONCE DAILY NEEDED FOR CONGESTION ., [facility] Fluticasone Yes See Memori a propionate 1-02 Instructio l 0.05 15:21: ns, # 16 [place] MG/ACTUAT 09 mL, Metered Refill(s) Dose Nasal 1, INHALE [place] 2 SPRAYS IN EACH NOSTRIL ONCE DAILY NEEDED FOR CONGESTION ., [facility] Fluticasone 2017- Yes 2 spray, Me moria propionate 1-13 NASAL, l 0.05 22:30: Daily, PRN [place] MG/ACTUAT 00 Nasal Metered Congestion Dose Nasal , in each [place] nostril, # [Flonase] 16 gm, 1 Refill(s), [facility]: [id number] clarithromy 2016-09 Yes 500 mg = 1 Memoria roberto 500 mg 1-13 tab, PO, l oral tablet 22:30: Q12H, X 10 [place] 00 day, # 20 tab, 0 Refill(s), Pharmacy: [id number] Bromphenira 2016-09 Yes 5 mL, PO, M emoria mine 1-13 Q6H, PRN l Maleate 0.4 22:30: for cough H ermann MG/ML / 00 and Dextrometho congestion rphan , X 10 Hydrobromid day, # 120 e 2 MG/ML / mL, 0 Pseudoephed Refill(s), [facility] Pharmacy: [facility] MG/ML [facility] #[id number] Oral Solution Fluticasone 2016-09 Yes 2 spray, Me moria propionate -13 NASAL, l 0.05 22:30: Daily, PRN [place] MG/ACTUAT 00 Nasal Metered Congestion Dose Nasal , in each [place] nostril, # [Flonase] 16 gm, 1 Refill(s), Pharmacy: [id number] clarithromy 2016-09 Yes 500 mg = 1 Memoria roberto 500 mg -13 tab, PO, l oral tablet 22:30: Q12H, X 10 [place] 00 day, # 20 tab, 0 Refill(s), Pharmacy: [id number] Bromphenira 2016-09 Yes 5 mL, PO, M emoria mine 09-24 Q6H, PRN l Maleate 0.4 22:30: for cough H [place] MG/ML / 00 and Dextrometho congestion rphan , X 10 Hydrobromid day, # 120 e 2 MG/ML / mL, 0 Pseudoephed Refill(s), [facility] Pharmacy: [facility] MG/ML [facility] #[id number] Oral Solution Fluticasone 2016-09 Yes 2 spray, Me moria propionate 1-13 NASAL, l 0.05 22:30: Daily, PRN [place] MG/ACTUAT 00 Nasal Metered Congestion Dose Nasal , in each [place] nostril, # [Flonase] 16 gm, 1 Refill(s), [id number] clarithromy 2017 Yes 500 mg = 1 Memoria roberto 500 mg 1-13 tab, PO, l oral tablet 22:30: Q12H, X 10 [place] 00 day, # 20 tab, 0 Refill(s), [id number] Bromphenira 2016-09 Yes 5 mL, PO, M emoria mine 1-13 Q6H, PRN l Maleate 0.4 22:30: for cough H [place] MG/ML / 00 and Dextrometho congestion rphan , X 10 Hydrobromid day, # 120 e 2 MG/ML / mL, 0 Pseudoephed Refill(s), [facility]: [facility] MG/ML [facility] #[id number] Oral Solution Fluticasone 2016-09 Yes 2 spray, Me moria propionate 1-13 NASAL, l 0.05 22:30: Daily, PRN [place] MG/ACTUAT 00 Nasal Metered Congestion Dose Nasal , in each [place] nostril, # [Flonase] 16 gm, 1 Refill(s), Pharmacy: [id number] clarithromy 2016-09 Yes 500 mg = 1 Memoria roberto 500 mg 1-13 tab, PO, l oral tablet 22:30: Q12H, X 10 [place] 00 day, # 20 tab, 0 Refill(s), [facility] Bromphenira 2016-09 Yes 5 mL, PO, M emoria mine 1-13 Q6H, PRN l Maleate 0.4 22:30: for cough H [place] MG/ML / 00 and Dextrometho congestion rphan , X 10 Hydrobromid day, # 120 e 2 MG/ML / mL, 0 Pseudoephed Refill(s), [place] [facility]acy: [facility] MG/ML [facility] #[id number] Oral Solution Fluticasone 2016-09 Yes 2 spray, Me moria propionate 1-13 NASAL, l 0.05 22:30: Daily, PRN [place] MG/ACTUAT 00 Nasal Metered Congestion Dose Nasal , in each [place] nostril, # [Flonase] 16 gm, 1 Refill(s), [facility]: [facility] clarithromy 2016-09 Yes 500 mg = 1 Memoria roberto 500 mg 1-13 tab, PO, l oral tablet 22:30: Q12H, X 10 [place] 00 day, # 20 tab, 0 Refill(s), [id number] Bromphenira 2016-09 Yes 5 mL, PO, M emoria mine 1-13 Q6H, PRN l Maleate 0.4 22:30: for cough H [place] MG/ML / 00 and Dextrometho congestion rphan , X 10 Hydrobromid day, # 120 e 2 MG/ML / mL, 0 Pseudoephed Refill(s), [place] Pharmacy: [facility] MG/ML [facility] #[id number] Oral Solution Fluticasone 2016-09 Yes 2 spray, Me moria propionate -13 NASAL, l 0.05 22:30: Daily, PRN [place] MG/ACTUAT 00 Nasal Metered Congestion Dose Nasal , in each [place] nostril, # [Flonase] 16 gm, 1 Refill(s), Pharm[facility]: [id number] clarithromy 2016-09 Yes 500 mg = 1 Memoria roberto 500 mg 1-13 tab, PO, l oral tablet 22:30: Q12H, X 10 [place] 00 day, # 20 tab, 0 Refill(s), [facility]: [facility] Bromphenira 2016-09 Yes 5 mL, PO, M emoria mine 1-13 Q6H, PRN l Maleate 0.4 22:30: for cough [place] MG/ML / 00 and Dextrometho congestion rphan , X 10 Hydrobromid day, # 120 e 2 MG/ML / mL, 0 Pseudoephed Refill(s), [place] Pharmacy: [facility] MG/ML [facility] #[id number] Oral Solution Fluticasone 2016-09 Yes 2 spray, Me moria propionate 1-13 NASAL, l 0.05 22:30: Daily, PRN [place] MG/ACTUAT 00 Nasal Metered Congestion Dose Nasal , in each [place] nostril, # [Flonase] 16 gm, 1 Refill(s), [facility]acy: [id number] clarithromy 2016-09 Yes 500 mg = 1 Memoria roberto 500 mg -13 tab, PO, l oral tablet 22:30: Q12H, X 10 [place] 00 day, # 20 tab, 0 Refill(s), Pharm[facility]: [id number] Bromphenira 2016-09 Yes 5 mL, PO, M emoria mine - Q6H, PRN l Maleate 0.4 22:30: for cough H [place] MG/ML / 00 and Dextrometho congestion rphan , X 10 Hydrobromid day, # 120 e 2 MG/ML / mL, 0 Pseudoephed Refill(s), [place] Pharmacy: [facility] MG[facility]ML [facility] #[id number] Oral Solution Fluticasone 2016-09 Yes 2 spray, Me moria propionate -13 NASAL, l 0.05 22:30: Daily, PRN [place] MG/ACTUAT 00 Nasal Metered Congestion Dose Nasal , in each [place] nostril, # [Flonase] 16 gm, 1 Refill(s), Pharmacy: [id number] clarithromy 2016-09 Yes 500 mg = 1 Memoria roberto 500 mg -13 tab, PO, l oral tablet 22:30: Q12H, X 10 [place] 00 day, # 20 tab, 0 Refill(s), [facility]: [id number] Bromphenira 2016-09 Yes 5 mL, PO, M emoria mine 09-24 Q6H, PRN l Maleate 0.4 22:30: for cough H [place] MG/ML / 00 and Dextrometho congestion rphan , X 10 Hydrobromid day, # 120 e 2 MG/ML / mL, 0 Pseudoephed Refill(s), [facility] Pharmacy: [facility] MG/ML cy #[id number] Oral Solution Fluticasone 2016-09 Yes 2 spray, Me moria propionate -13 NASAL, l 0.05 22:30: Daily, PRN [place] MG/ACTUAT 00 Nasal Metered Congestion Dose Nasal , in each [place] nostril, # [Flonase] 16 gm, 1 Refill(s), [facility]: [id number] clarithromy 2016-09 Yes 500 mg = 1 Memoria roberto 500 mg -13 tab, PO, l oral tablet 22:30: Q12H, X 10 [place] 00 day, # 20 tab, 0 Refill(s), [facility]: [id number] Bromphenira 2016-09 Yes 5 mL, PO, M emoria mine 1-13 Q6H, PRN l Maleate 0.4 22:30: for cough H [place] MG/ML / 00 and Dextrometho congestion rphan , X 10 Hydrobromid day, # 120 e 2 MG/ML / mL, 0 Pseudoephed Refill(s), [facility]: [facility] MG/ML [facility] #[id number] Oral Solution Fluticasone 2016-09 Yes 2 spray, Me moria propionate 1-13 NASAL, l 0.05 22:30: Daily, PRN [place] MG/ACTUAT 00 Nasal Metered Congestion Dose Nasal , in each [place] nostril, # [Flonase] 16 gm, 1 Refill(s), [facility]: [facility] clarithromy 2016-09 Yes 500 mg = 1 Memoria roberto 500 mg -13 tab, PO, l oral tablet 22:30: Q12H, X 10 [place] 00 day, # 20 tab, 0 Refill(s), [facility]: [id number] Bromphenira 2016-09 Yes 5 mL, PO, M emoria mine 1 Q6H, PRN l Maleate 0.4 22:30: for cough H [place] MG/ML / 00 and Dextrometho congestion rphan , X 10 Hydrobromid day, # 120 e 2 MG/ML / mL, 0 Pseudoephed Refill(s), [facility]: [facility] MG/ML [facility] #[id number] Oral Solution Fluticasone 2016-09 Yes 2 spray, Me moria propionate 1-13 NASAL, l 0.05 22:30: Daily, PRN [place] MG/ACTUAT 00 Nasal Metered Congestion Dose Nasal , in each [place] nostril, # [Flonase] 16 gm, 1 Refill(s), Pharmacy: [id number] clarithromy 2016- Yes 500 mg = 1 Memoria roberto 500 mg 1-13 tab, PO, l oral tablet 22:30: Q12H, X 10 [place] 00 day, # 20 tab, 0 Refill(s), [facility]: [id number] Bromphenira 2016-09 Yes 5 mL, PO, M emoria mine 1- Q6H, PRN l [place] 0.4 22:30: for cough H [place] MG/ML / 00 and Dextrometho congestion rphan , X 10 Hydrobromid day, # 120 e 2 MG/ML / mL, 0 Pseudoephed Refill(s), [facility] Pharmacy: [facility] MG/ML cy #[id number] Oral Solution Fluticasone 2016-09 Yes 2 spray, Me moria propionate -13 NASAL, l 0.05 22:30: Daily, PRN [place] MG/ACTUAT 00 Nasal Metered Congestion Dose Nasal , in each [place] nostril, # [Flonase] 16 gm, 1 Refill(s), Pharm[facility]: [facility] clarithromy 2016-09 Yes 500 mg = 1 Memoria roberto 500 mg -13 tab, PO, l oral tablet 22:30: Q12H, X 10 [place] 00 day, # 20 tab, 0 Refill(s), [facility]: [id number] Bromphenira 2016-09 Yes 5 mL, PO, M emoria mine 09-24 Q6H, PRN l Maleate 0.4 22:30: for cough H [place] MG/ML / 00 and Dextrometho congestion rphan , X 10 Hydrobromid day, # 120 e 2 MG/ML / mL, 0 Pseudoephed Refill(s), [facility] Pharmacy: [facility] MG/ML cy #[id number] Oral Solution Fluticasone 2016-09 Yes 2 spray, Me moria propionate -13 NASAL, l 0.05 22:30: Daily, PRN [place] MG/ACTUAT 00 Nasal Metered Congestion Dose Nasal , in each [place] nostril, # [Flonase] 16 gm, 1 Refill(s), [facility]: [id number] clarithromy 2017 Yes 500 mg = 1 Memoria roberto 500 mg -13 tab, PO, l oral tablet 22:30: Q12H, X 10 [place] 00 day, # 20 tab, 0 Refill(s), [facility]: [id number] Bromphenira 2017- Yes 5 mL, PO, M emoria mine 1-13 Q6H, PRN l Maleate 0.4 22:30: for cough H [place] MG/ML / 00 and Dextrometho congestion rphan , X 10 Hydrobromid day, # 120 e 2 MG/ML / mL, 0 Pseudoephed Refill(s), [facility] Pharmacy: [facility] MG[facility]ML [facility] #[id number] Oral Solution Immunizations Ordered Immunization Filled Immunization Date Status Commen ts Source Name Name PBLX-UkB-1YENDD-19mR 2021-12-03 Completed [place] [place] [facility]73[facility]<[place] 14:38:00 [place] p>1</sup> EQRL-VkD-1BOUHA-19mR 2021-12-03 Completed [place] [place] NA-[facility]<[place] 14:38:00 Herm sienna p>1</sup> BMGX-JbX-7IMOJR-19mR 2021-12-03 Completed [place] [place] NA-[facility]<[place] 14:38:00 Herm sienna p>1</sup> LUCV-HqE-9ETXRW-19mR 2021-12-03 Completed [place] [place] NA-1273[facility]<[place] 14:38:00 Herm sienna p>1</sup> COBI-MkZ-5SZROZ-19mR 2021-12-03 Completed [place] [place] NA-1273[facility]<[place] 14:38:00 Herm sienna p>1</sup> HOZT-LwY-0UZKSW-19mR 2021-12-03 Completed [place] [place] NA-1273[facility]<[place] 14:38:00 Herm sienna p>1</sup> ZKFZ-QfM-9VDEGT-19mR 2021-12-03 Completed [place] [place] [facility]-1273[facility]<[place] 14:38:00 Herm sienna p>1</sup> ZOOH-KgC-6ZCJZL-19mR 2021-12-03 Completed [place] [place] NA-1273[facility]<[place] 14:38:00 Herm sienna p>1</sup> WRRE-SlM-0VEPZC-19mR 2021-12-03 Completed [place] [place] NA-1273[facility]<[place] 14:38:00 Herm sienna p>1</sup> YUSK-UeC-7OXCKO-19mR 2021-12-03 Completed [place] [place] NA-1273[facility]<[place] 14:38:00 Herm sienna p>1</sup> KGCL-UdE-5YBNLX-19mR 2021-12-03 Completed [place] [place] NA-1273[facility]<[place] 14:38:00 Herm sienna p>1</sup> BTGD-PhP-3FVYYB-19mR 2021-12-03 Completed [place] [place] [facility]-1273[facility]<[place] 14:38:00 Herm sienna p>1</sup> TWMN-YoS-5IFECC-19mR 2021-12-03 Completed [place] [place] NA-1273[facility]<[place] 14:38:00 Herm sienna p>1</sup> MTSR-GoV-6FKUKX-19mR 2021-08-11 Completed [place] [place] [facility]-1273[facility]<[place] 17:39:00 Herm sienna p>1</sup> ELHP-NwP-0AXAXB-19mR 2021-08-11 Completed [place] NA-1273[facility]<[place] 17:39:00 Herm sienna p>2</sup> IJZV-DmR-0IVRTZ-19mR 2021-08-11 Completed [place] [place] NA-1273[facility]<[place] 17:39:00 Herm sienna p>1</sup> LWPC-DzX-2TZZEY-19mR 2021-08-11 Completed [place] [place] NA-1273[facility]<[place] 17:39:00 Herm sienna p>2</sup> LPBN-McH-8KYXFL-19mR 2021-08-11 Completed [place] [place] NA-1273[facility]<[place] 17:39:00 Herm sienna p>1</sup> QPWD-QaY-0TYOIN-19mR 2021-08-11 Completed [place] [place] [facility]-1273[facility]<[place] 17:39:00 Herm sienna p>2</sup> EPGV-LzK-0KUTDN-19mR 2021-08-11 Completed [place] [place] [facility]-1273[facility]<[place] 17:39:00 Herm sienna p>1</sup> VDCR-MvO-5SGPZU-19mR 2021-08-11 Completed [place] [place] NA-1273[facility]<[place] 17:39:00 Herm sienna p>2</sup> MOYA-QiJ-9UDXPW-19mR 2021-08-11 Completed [place] [place] NA-1273[facility]<[place] 17:39:00 Herm sienna p>1</sup> LMWT-EgB-1GSCCS-19mR 2021-08-11 Completed [place] [place] NA-1273[facility]<[place] 17:39:00 Herm sienna p>2</sup> ZKKX-GhI-8TXNGM-19mR 2021-08-11 Completed [place] NA-1273[facility]<[place] 17:39:00 Herm sienna p>1</sup> WKZN-ZqZ-4IUTCS-19mR 2021-08-11 Completed [place] NA-1273[facility]<[place] 17:39:00 Herm sienna p>2</sup> GTLI-YmQ-1UGWAJ-19mR 2021-08-11 Completed [place] [place] NA-1273[facility]<[place] 17:39:00 Herm sienna p>1</sup> VQXT-FoZ-6CYQEQ-19mR 2021-08-11 Completed [place] [place] NA-1273[facility]<[place] 17:39:00 Herm sienna p>2</sup> IKYP-PyA-4VDVRB-19mR 2021-08-11 Completed [place] [place] [facility]73[facility]<[place] 17:39:00 Herm sienna p>1</sup> CLVO-XsO-8ETOZF-19mR 2021-08-11 Completed [place] [place] [facility]73[facility]<[place] 17:39:00 Herm sienna p>2</sup> MNDC-WcD-7SZMBL-19mR 2021-08-11 Completed [place] [place] [facility]<[place] 17:39:00 Herm sienna p>1</sup> PDYZ-XgW-6NLOQC-19mR 2021-08-11 Completed [place] [place] [facility]<[place] 17:39:00 Herm sienna p>2</sup> SHPH-RxN-9FECEB-19mR 2021-08-11 Completed [place] [place] [facility]<[place] 17:39:00 Herm sienna p>1</sup> TMXS-NgZ-1AYCAP-19mR 2021-08-11 Completed [place] [place] [facility]<[place] 17:39:00 Herm sienna p>2</sup> RQTG-SiV-7IFCOJ-19mR 2021-08-11 Completed [place] [place] [facility]<[place] 17:39:00 Herm sienna p>1</sup> RFRY-VlF-2AOJMC-19mR 2021-08-11 Completed [place] [place] [facility]<[place] 17:39:00 Herm sienna p>2</sup> ZPHH-JnG-7WCWKX-19mR 2021-08-11 Completed [place] [place] [facility]<[place] 17:39:00 Herm sienna p>1</sup> OTSU-IpY-3EHFKC-19mR 2021-08-11 Completed [place] [place] [facility]<[place] 17:39:00 Herm sienna p>2</sup> IFSS-TzR-7OWXZE-19mR 2021-08-11 Completed [place] [place] [facility]-12[facility]<[place] 17:39:00 Herm sienna p>1</sup> YHWC-HeR-2HVXCS-19mR 2021-08-11 Completed [place] [place] [facility]<[place] 17:39:00 Herm sienna p>2</sup> FTAN-ImF-9JKTSN-19mR 2021-07-14 Completed [place] [place] [facility]<[place] 18:52:00 Herm sienna p>2</sup> GDKV-WcV-4KQLEJ-19mR 2021-07-14 Completed [place] [facility]<[place] 18:52:00 Herm sienna p>1</sup> GZFJ-IrU-2RJNTE-19mR 2021-07-14 Completed [place] [facility]<[place] 18:52:00 Herm sienna p>3</sup> PUZD-CeV-5MKMZW-19mR 2021-07-14 Completed [place] [facility]<[place] 18:52:00 Herm sienna p>2</sup> XPQI-DiI-7QZUUS-19mR 2021-07-14 Completed [place] [place] [facility]<[place] 18:52:00 Herm sienna p>1</sup> DWQJ-DlY-3VLIRZ-19mR 2021-07-14 Completed [place] [place] [facility]-12[facility]<[place] 18:52:00 Herm sienna p>3</sup> QWWT-VaA-9DTLVZ-19mR 2021-07-14 Completed [place] [facility]<[place] 18:52:00 Herm sienna p>2</sup> OMOE-InD-8OZDEC-19mR 2021-07-14 Completed [place] [facility]-1273[facility]<[place] 18:52:00 Herm sienna p>1</sup> RTCH-GuT-0ZGFBK-19mR 2021-07-14 Completed [place] [facility] NA-1273[facility]<[place] 18:52:00 Herm sienna p>3</sup> YGHJ-MxK-4WZWJV-19mR 2021-07-14 Completed [place] [facility] NA-1273[facility]<[place] 18:52:00 Herm sienna p>2</sup> HNXS-NvT-9XOMTE-19mR 2021-07-14 Completed [place] [place] [facility]<[place] 18:52:00 Herm sienna p>1</sup> EHIQ-RgV-3DWXQY-19mR 2021-07-14 Completed [place] [place] NA-1273[facility]<[place] 18:52:00 Herm sienna p>3</sup> BFBL-BdM-8LQFFK-19mR 2021-07-14 Completed [place] [facility] NA-1273vaxMODERNA<crawford 18:52:00 Herm sienna p>2</sup> BNDV-PhB-4UFRSM-19mR 2021-07-14 Completed [place] [facility] NA-1273vaxMODERNA<crawford 18:52:00 Herm sienna p>1</sup> SHKT-PbS-6DCCTM-19mR 2021-07-14 Completed [place] [facility] NA-1273vaxMODERNA<crawford 18:52:00 Herm sienna p>3</sup> MNLX-McE-9GGPIH-19mR 2021-07-14 Completed [place] [facility] NA-1273vaxMODERNA<crawford 18:52:00 Herm sienna p>2</sup> XVXI-HlE-8OJYOU-19mR 2021-07-14 Completed [place] [facility] NA-1273vaxMODERNA<crawford 18:52:00 Herm sienna p>1</sup> CXGV-BgK-5FSENN-19mR 2021-07-14 Completed [place] [facility] NA-1273vaxMODERNA<crawford 18:52:00 Herm sienna p>3</sup> SINX-XtB-9YGCZV-19mR 2021-07-14 Completed [place] [facility] NA-1273vaxMODERNA<crawford 18:52:00 Herm sienna p>2</sup> SESR-SjN-3IBFVX-19mR 2021-07-14 Completed [place] [facility] NA-1273vaxMODERNA<crawford 18:52:00 Herm sienna p>1</sup> RLZH-EeC-6AVROX-19mR 2021-07-14 Completed [place] [facility] NA-1273vaxMODERNA<crawford 18:52:00 Herm sienna p>3</sup> JPGK-MvZ-5NFNNQ-19mR 2021-07-14 Completed [place] [facility] NA-1273vaxMODERNA<crawford 18:52:00 Herm sienna p>2</sup> CDFW-YoV-6RJTGU-19mR 2021-07-14 Completed [place] [facility] NA-1273vaxMODERNA<crawford 18:52:00 Herm sienna p>1</sup> USDR-KdF-3FABTG-19mR 2021-07-14 Completed [place] [facility] NA-1273vaxMODERNA<crawford 18:52:00 Herm sienna p>3</sup> ZCJD-NkP-8FCKYA-19mR 2021-07-14 Completed [place] [place] NA-1273vaxMODERNA<crawford 18:52:00 Herm sienna p>2</sup> WDQL-TdC-7PVCTL-19mR 2021-07-14 Completed [place] [facility] NA-1273vaxMODERNA<crawford 18:52:00 Herm sienna p>1</sup> TBEZ-MyI-1MLGQS-19mR 2021-07-14 Completed [place] [facility] NA-1273vaxMODERNA<crawford 18:52:00 Herm sienna p>3</sup> QHBM-RoT-3WLUDY-19mR 2021-07-14 Completed [place] [facility] NA-1273vaxMODERNA<crawford 18:52:00 Herm sienna p>2</sup> BOXE-VoZ-1SLOCP-19mR 2021-07-14 Completed [place] [facility] NA-1273vaxMODERNA<crawford 18:52:00 Herm sienna p>1</sup> UFFR-YmO-9OGWPX-19mR 2021-07-14 Completed [place] [facility] NA-1273vaxMODERNA<crawford 18:52:00 Herm sienna p>3</sup> SKGE-EmC-9BVTJL-19mR 2021-07-14 Completed [place] [facility] NA-1273vaxMODERNA<crawford 18:52:00 Herm sienna p>2</sup> JRHG-BxE-8ILGPL-19mR 2021-07-14 Completed [place] [facility] NA-1273vaxMODERNA<crawford 18:52:00 Herm sienna p>1</sup> MCXR-IuS-9XJISB-19mR 2021-07-14 Completed [place] [facility] NA-1273vaxMODERNA<crawford 18:52:00 Herm sienna p>3</sup> CGEJ-KgK-5FIPJC-19mR 2021-07-14 Completed [place] [facility] NA-1273vaxMODERNA<crawford 18:52:00 Herm sienna p>2</sup> LSHF-SiO-6TXIGL-19mR 2021-07-14 Completed [place] [facility] NA-1273vaxMODERNA<crawford 18:52:00 Herm sienna p>1</sup> TCAU-QbF-4KMTQY-19mR 2021-07-14 Completed [place] [facility] NA-1273vaxMODERNA<crawford 18:52:00 Herm sienna p>3</sup> EMGG-LrB-7CSWOO-19mR 2021-07-14 Completed [place] [facility] NA-1273vaxMODERNA<crawford 18:52:00 Herm sienna p>2</sup> OXXC-RgO-8BMQIF-19mR 2021-07-14 Completed [place] [facility] NA-1273vaxMODERNA<crawford 18:52:00 Herm sienna p>1</sup> XJPQ-RqH-5YDLCQ-19mR 2021-07-14 Completed [place] [facility] NA-1273vaxMODERNA<crawford 18:52:00 Herm sienna p>3</sup> Vital Signs Vital Name Observation Time Observation Value Comments Source Systolic blood 2023-01-18 18:09:00 146 mm[Hg] [facility] Diastolic blood 2023-01-18 18:09:00 78 mm[Hg] [facility] Heart rate 2023-01-18 18:07:00 78 /min [facility] Body temperature 2023-01-18 18:07:00 35.72 [place] [facility]23-[facility]-18 18:07:00 157.5 cm [facility] Body weight 2023-01-18 18:07:00 112.311 kg [facility] BMI 2023-01-18 18:07:00 45.29 kg/m2 [facility] Oxygen saturation in 2023-01-18 18:07:00 98 /min [facility] [facility] Arterial blood by [facility] Pulse oximetry Branch Systolic blood 2022-06-30 18:33:00 114 mm[Hg] [facility] Diastolic blood 2022-06-30 18:33:00 76 mm[Hg] [facility] Heart rate 2022-06-30 18:33:00 92 /min [facility] Body height 2022-06-30 18:33:00 157.5 cm [facility] Body weight 2022-06-30 18:33:00 112.084 kg [facility] BMI 2022-06-30 18:33:00 45.20 kg/m2 [facility] Oxygen saturation in 2022-06-30 18:33:00 97 /min [facility] [place] [facility] Systolic blood 2022-06-01 16:51:00 126 mm[Hg] [facility] Diastolic blood 2022-06-01 16:51:00 64 mm[Hg] [facility] Heart rate 2022-06-01 16:51:00 67 /min [facility] Body temperature 2022-06-01 16:51:00 36 Yarely [facility] Respiratory rate 2022-06-01 16:51:00 18 /min [facility] Oxygen saturation in 2022-06-01 16:51:00 99 /min [facility] Arterial blood by [facility] laura P[facility] Body weight 2022-06-01 10:52:00 117.935 kg [facility] BMI 2022-06-01 10:52:00 47.55 kg/m2 [facility] Body height 2022-05-28 05:00:00 157.5 cm [facility] Systolic blood 2022-05-31 20:45:00 129 mm[Hg] [facility] Diastolic blood 2022-05-31 20:45:00 71 mm[Hg] [facility] Respiratory rate 2022-05-31 20:45:00 17 /min [facility] Oxygen saturation in 2022-05-31 20:45:00 97 /min [facility] [place] [facility] Heart rate 2022-05-31 16:40:00 71 /min [facility] Body temperature 2022-05-31 16:40:00 35.72 Yarely [facility] Body weight 2022-05-31 09:42:00 116.438 kg [facility] BMI 2022-05-31 09:42:00 47.55 kg/m2 [facility] Body height 2022-05-28 05:00:00 157.5 cm [facility] Height 2023-01-18 14:50:00 5 [ft_i] [facility] Weight 2023-01-18 14:50:00 [facility] BMI Calculated 2023-01-18 14:50:00 [facility] Systolic (mm Hg) 2023-01-18 14:50:00 [facility] Diastolic (mm Hg) 2023-01-18 14:50:00 [facility] Heart Rate 2023-01-18 14:50:00 [facility] Systolic (mm Hg) 2023-01-05 21:10:00 [facility] Diastolic (mm Hg) 2023-01-05 21:10:00 [facility] Heart Rate 2023-01-05 21:10:00 [facility] Height 2023-01-05 21:10:00 5 [ft_i] [facility] Weight 2023-01-05 21:10:00 [facility] BMI Calculated 2023-01-05 21:10:00 [facility] Systolic (mm Hg) 2022-12-31 14:00:00 [facility] Diastolic (mm Hg) 2022-12-31 14:00:00 [facility] Heart Rate 2022-12-31 14:00:00 [facility] Height 2022-12-31 14:00:00 5 [ft_i] [facility] Weight 2022-12-31 14:00:00 [facility] BMI Calculated 2022-12-31 14:00:00 [facility] Systolic (mm Hg) 2021-12-10 16:42:00 [facility] [place] Diastolic (mm Hg) 2021-12-10 16:42:00 [facility] Heart Rate 2021-12-10 16:42:00 [facility] Respitory Rate 2021-12-10 16:42:00 [facility] Height 2021-12-10 16:42:00 154.94 cm [facility] Weight 2021-12-10 16:42:00 [facility] BMI Calculated 2021-12-10 16:42:00 [facility] Systolic (mm Hg) 2021-11-20 16:03:00 [facility] [place] Diastolic (mm Hg) 2021-11-20 16:03:00 [facility] Heart Rate 2021-11-20 16:03:00 [facility] Respitory Rate 2021-11-20 16:03:00 [facility] Height 2021-11-20 16:03:00 156.21 cm [facility] Weight 2021-11-20 16:03:00 [facility] BMI Calculated 2021-11-20 16:03:00 [facility] Systolic (mm Hg) 2021-10-21 15:52:00 [facility] Diastolic (mm Hg) 2021-10-21 15:52:00 [facility] Heart Rate 2021-10-21 15:52:00 [facility] Respitory Rate 2021-10-21 15:52:00 [facility] Height 2021-10-21 15:52:00 154.94 cm [facility] Weight 2021-10-21 15:52:00 [facility] BMI Calculated 2021-10-21 15:52:00 [facility] Systolic (mm Hg) 2021-09-08 15:56:00 [facility] Diastolic (mm Hg) 2021-09-08 15:56:00 [facility] Heart Rate 2021-09-08 15:56:00 [facility] Respitory Rate 2021-09-08 15:56:00 [facility] Height 2021-09-08 15:56:00 154.94 cm [facility] Weight 2021-09-08 15:56:00 [facility] BMI Calculated 2021-09-08 15:56:00 [facility] Systolic (mm Hg) 2021-07-28 16:02:00 [facility] Diastolic (mm Hg) 2021-07-28 16:02:00 [facility] Heart Rate 2021-07-28 16:02:00 [facility] Respitory Rate 2021-07-28 16:02:00 [facility] Height 2021-07-28 16:02:00 154.94 cm [facility] Weight 2021-07-28 16:02:00 [facility] BMI Calculated 2021-07-28 16:02:00 [facility] Systolic (mm Hg) 2021-07-14 18:06:00 [facility] Diastolic (mm Hg) 2021-07-14 18:06:00 [facility] Heart Rate 2021-07-14 18:06:00 [facility] Respitory Rate 2021-07-14 18:06:00 [facility] Temperature Oral (F) 2021-07-14 18:06:00 98.6 F [facility] Height 2021-07-14 18:06:00 154.94 cm [facility] Weight 2021-07-14 18:06:00 [facility] BMI Calculated 2021-07-14 18:06:00 [facility] Systolic (mm Hg) 2021-06-29 16:09:00 [facility] Diastolic (mm Hg) 2021-06-29 16:09:00 [facility] Heart Rate 2021-06-29 16:09:00 [facility] Respitory Rate 2021-06-29 16:09:00 [facility] Height 2021-06-29 16:09:00 154.94 cm [facility] Weight 2021-06-29 16:09:00 [facility] BMI Calculated 2021-06-29 16:09:00 [facility] Systolic (mm Hg) 2021-06-05 15:14:00 [facility] Diastolic (mm Hg) 2021-06-05 15:14:00 [facility] Respitory Rate 2021-06-05 15:14:00 [facility] Height 2021-06-05 15:14:00 152.4 cm [facility] Weight 2021-06-05 15:14:00 [facility] BMI Calculated 2021-06-05 15:14:00 [facility] Systolic (mm Hg) 2021-05-20 15:44:00 [facility] [place] Diastolic (mm Hg) 2021-05-20 15:44:00 [facility] Heart Rate 2021-05-20 15:44:00 [facility] Respitory Rate 2021-05-20 15:44:00 [facility] Height 2021-05-20 15:44:00 154.94 cm [facility] Weight 2021-05-20 15:44:00 [facility] BMI Calculated 2021-05-20 15:44:00 [facility] Systolic (mm Hg) 2021-04-28 18:49:00 [facility] Diastolic (mm Hg) 2021-04-28 18:49:00 [facility] Heart Rate 2021-04-28 18:49:00 [facility] Respitory Rate 2021-04-28 18:49:00 [facility] Height 2021-04-28 18:49:00 154.94 cm [facility] Weight 2021-04-28 18:49:00 [facility] BMI Calculated 2021-04-28 18:49:00 [facility] Systolic (mm Hg) 2021-04-21 20:09:00 [facility] Diastolic (mm Hg) 2021-04-21 20:09:00 [facility] Heart Rate 2021-04-21 20:09:00 [facility] Respitory Rate 2021-04-21 20:09:00 [facility] Temperature Oral (F) 2021-04-21 20:09:00 98.4 F [facility] Height 2021-04-21 20:09:00 154.94 cm [facility] Weight 2021-04-21 20:09:00 [facility] BMI Calculated 2021-04-21 20:09:00 [facility] Systolic (mm Hg) 2020-12-17 19:42:00 [facility] Diastolic (mm Hg) 2020-12-17 19:42:00 [facility] Heart Rate 2020-12-17 19:42:00 [facility] Temperature Oral (F) 2020-12-17 19:42:00 98.7 F [facility] Height 2020-12-17 19:42:00 154.94 cm [facility] Weight 2020-12-17 19:42:00 [facility] BMI Calculated 2020-12-17 19:42:00 [facility] Systolic (mm Hg) 2020-10-22 19:39:00 [facility] Diastolic (mm Hg) 2020-10-22 19:39:00 [facility] Heart Rate 2020-10-22 19:39:00 [facility] Temperature Oral (F) 2020-10-22 19:39:00 98.6 F [facility] Height 2020-10-22 19:39:00 154.94 cm [facility] Weight 2020-10-22 19:39:00 [facility] BMI Calculated 2020-10-22 19:39:00 [facility] Systolic (mm Hg) 2020-07-10 15:07:00 [facility] Diastolic (mm Hg) 2020-07-10 15:07:00 [facility] Heart Rate 2020-07-10 15:07:00 [facility] Respitory Rate 2020-07-10 15:07:00 [facility] Height 2020-07-10 15:07:00 157.48 cm [facility] Weight 2020-07-10 15:07:00 [facility] BMI Calculated 2020-07-10 15:07:00 [facility] Systolic (mm Hg) 2020-06-03 15:17:00 [facility] Diastolic (mm Hg) 2020-06-03 15:17:00 [facility] Heart Rate 2020-06-03 15:17:00 [facility] Temperature Oral (F) 2020-06-03 15:17:00 98.6 F [facility] Height 2020-06-03 15:17:00 154.94 cm [facility] Weight 2020-06-03 15:17:00 [facility] BMI Calculated 2020-06-03 15:17:00 [facility] Systolic (mm Hg) 2019-08-07 20:05:00 [facility] Diastolic (mm Hg) 2019-08-07 20:05:00 [facility] Heart Rate 2019-08-07 20:05:00 [facility] Temperature Oral (F) 2019-08-07 20:05:00 97.9 F [facility] Height 2019-08-07 20:05:00 154.94 cm [facility] Weight 2019-08-07 20:05:00 [facility] BMI Calculated 2019-08-07 20:05:00 [facility] Height 2019-06-04 20:25:00 154.94 cm [facility] Weight 2019-06-04 20:25:00 [facility] BMI Calculated 2019-06-04 20:25:00 [facility] Systolic (mm Hg) 2019-06-04 20:25:00 [facility] Diastolic (mm Hg) 2019-06-04 20:25:00 [facility] Heart Rate 2019-06-04 20:25:00 [facility] Temperature Oral (F) 2019-06-04 20:25:00 98.1 F [facility] Height 2019-03-05 19:23:00 154.94 cm [facility] Weight 2019-03-05 19:23:00 [facility] BMI Calculated 2019-03-05 19:23:00 [facility] Systolic (mm Hg) 2019-03-05 19:23:00 [facility] Diastolic (mm Hg) 2019-03-05 19:23:00 [facility] Respitory Rate 2019-03-05 19:23:00 [facility] Temperature Oral (F) 2019-03-05 19:23:00 98.3 F [facility] Heart Rate 2019-03-05 19:23:00 [facility] BMI Calculated 2019-02-08 18:32:00 [facility] Weight 2019-02-08 18:32:00 [facility] Heart Rate 2019-02-08 18:32:00 [facility] Systolic (mm Hg) 2019-02-08 18:32:00 [facility] Diastolic (mm Hg) 2019-02-08 18:32:00 [facility] Respitory Rate 2019-02-08 18:32:00 [facility] Temperature Oral (F) 2019-02-08 18:32:00 98.2 F [facility] Height 2019-02-08 18:32:00 154.94 cm [facility] Height 2018-03-06 16:25:00 154.94 cm [facility] Weight 2018-03-06 16:25:00 [facility] BMI Calculated 2018-03-06 16:25:00 [facility] Systolic (mm Hg) 2018-03-06 16:25:00 [facility] Diastolic (mm Hg) 2018-03-06 16:25:00 [facility] Temperature Oral (F) 2018-03-06 16:25:00 98.2 F [facility] Heart Rate 2018-03-06 16:25:00 [facility] Weight 2018-02-23 12:40:00 [facility] BMI Calculated 2018-02-23 12:40:00 [facility] Height 2018-02-23 12:40:00 154.94 cm [facility] Heart Rate 2018-02-23 12:40:00 [facility] Temperature Oral (F) 2018-02-23 12:40:00 98.2 F [facility] Systolic (mm Hg) 2018-02-23 12:40:00 [facility] Diastolic (mm Hg) 2018-02-23 12:40:00 [facility] Systolic (mm Hg) 2017-11-21 20:45:00 [facility] Diastolic (mm Hg) 2017-11-21 20:45:00 [facility] Respitory Rate 2017-11-21 20:45:00 [facility] Heart Rate 2017-11-21 20:45:00 [facility] BMI Calculated 2017-11-21 20:45:00 [facility] Weight 2017-11-21 20:45:00 [facility] Temperature Oral (F) 2017-11-21 20:45:00 98.0 F [facility] Height 2017-11-21 20:45:00 157.48 cm [facility] BMI Calculated 2017-07-25 22:18:00 [facility] Height 2017-07-25 22:18:00 154.94 cm [facility] Systolic (mm Hg) 2017-07-25 22:18:00 [facility] Diastolic (mm Hg) 2017-07-25 22:18:00 [facility] Temperature Oral (F) 2017-07-25 22:18:00 98 F [facility] Weight 2017-07-25 22:18:00 [facility] Heart Rate 2017-07-25 22:18:00 [facility] Procedures Procedure Date / Time Performing Clinician Source Performed INDIVIDUAL CARDIAC 2022-09-13 20:43:00 Doctor Unassigned, [facility] TREATMENT PLAN [facility] POCT GLUCOSE (AUTOMATED) 2022-08-30 14:05:00 Michael, Qiangjun [facility] POCT GLUCOSE (AUTOMATED) 2022-08-27 14:42:00 Krissy Malone [facility] CARDIAC REHAB SESSION 2022-08-27 06:00:00 Doctor Unassigned, [facility] [place] REPORT [facility] POCT GLUCOSE (AUTOMATED) 2022-08-23 14:52:00 Krissy Malone [facility] POCT GLUCOSE (AUTOMATED) 2022-08-17 14:55:00 Krissy Malone [facility] CARDIAC REHAB SESSION 2022-08-17 06:00:00 Doctor Unassigned, [facility] [place] [facility] POCT GLUCOSE (AUTOMATED) 2022-08-16 15:00:00 Krissy Malone [facility] POCT GLUCOSE (AUTOMATED) 2022-08-12 14:52:00 Krissy Malone [facility] POCT GLUCOSE (AUTOMATED) 2022-08-11 14:56:00 Krissy Malone [facility] POCT GLUCOSE (AUTOMATED) 2022-08-10 14:42:00 MichaelKrissy [facility] POCT GLUCOSE (AUTOMATED) 2022-08-09 14:59:00 Krissy Malone [facility] POCT GLUCOSE (AUTOMATED) 2022-08-04 15:03:00 Krissy Maolne [facility] CARDIAC REHAB SESSION 2022-08-04 06:00:00 Doctor Unassigned, [facility] [place] [facility] POCT GLUCOSE (AUTOMATED) 2022-08-03 14:15:00 Krissy Malone [facility] CARDIAC REHAB SESSION 2022-08-03 06:00:00 Doctor Unassigned, [facility] [place] [facility] POCT GLUCOSE (AUTOMATED) 2022-08-02 14:57:00 Krissy Malone [facility] CARDIAC REHAB SESSION 2022-08-02 06:00:00 Doctor Unassigned, [facility] [place] RE[facility] POCT GLUCOSE (AUTOMATED) 2022-07-29 14:06:00 Krissy Malone [facility] CARDIAC REHAB SESSION 2022-07-29 06:00:00 Doctor Unassigned, [facility] [place] RE[facility] INDIVIDUAL CARDIAC 2022-07-28 20:48:00 Doctor Unassigned, [facility] TREATMENT PLAN [facility] POCT GLUCOSE (AUTOMATED) 2022-07-28 14:50:00 Krissy Malone [facility] POCT GLUCOSE (AUTOMATED) 2022-07-26 14:59:00 Krissy Malone [facility] CARDIAC REHAB SESSION 2022-07-26 06:00:00 Doctor Unassigned, [facility] [place] RE[facility] POCT GLUCOSE (AUTOMATED) 2022-07-23 14:53:00 Krissy Malone [facility] POCT GLUCOSE (AUTOMATED) 2022-07-21 14:58:00 Krissy Malone [facility] POCT GLUCOSE (AUTOMATED) 2022-07-19 15:05:00 Krissy Malone [facility] CARDIAC REHAB SESSION 2022-07-19 06:00:00 Doctor Unassigned, [facility] [place] RE[facility] POCT GLUCOSE (AUTOMATED) 2022-07-16 13:58:00 Krissy Malone [facility] POCT GLUCOSE (AUTOMATED) 2022-07-14 20:42:00 Krissy Malone [facility] POCT GLUCOSE (AUTOMATED) 2022-07-12 15:41:00 Krissy Malone [facility] POCT GLUCOSE (AUTOMATED) 2022-07-09 13:59:00 Krissy Malone [facility] CARDIAC REHAB SESSION 2022-07-09 05:00:00 Doctor Unassigned, [facility] [place] [facility] POCT GLUCOSE (AUTOMATED) 2022-07-07 14:02:00 Krissy Malone [facility] POCT GLUCOSE (AUTOMATED) 2022-07-05 14:26:00 Krissy Malone [facility] OUTPATIENT CARDIAC REHAB 2022-07-04 05:01:00 Doctor Unassigned, [facility] INTAKE [facility] OUTPATIENT CARDIAC REHAB 2022-07-01 05:01:00 Doctor Unassigned, [facility] INTAKE [facility] ASSIGNMENT OF BENEFITS 2022-06-30 18:17:43 Doctor Unassigned, [facility] POCT GLUCOSE (AUTOMATED) 2022-06-01 19:52:00 Aiden Prado [facility] POCT GLUCOSE (AUTOMATED) 2022-06-01 16:53:00 Aiden Prado [facility] POCT GLUCOSE (AUTOMATED) 2022-06-01 16:53:00 [facility] 2022-06-01 13:47:00 [facility]) 2022-06-01 13:47:00 [facility] 2022-06-01 09:30:00 Layla Carcamo [facility] BASIC METABOLIC PANEL (NA, 2022-06-01 09:30:00 Layla [facility]cam[facility] [place] K, CL, CO2, GLUCOSE, BUN, [facility] CREATININE, CA) CBC WITH DIFF 2022-06-01 09:30:00 [facility] MAGNESIUM 2022-06-01 09:30:00 Layla Carcamo [facility] BASIC METABOLIC PANEL (NA, 2022-06-01 09:30:00 Layla Carcamo [facility] [place] K, CL, CO2, GLUCOSE, BUN, [facility] CREATININE, CA) CBC WITH DIFF 2022-06-01 09:30:00 [facility] ACTIVATED PARTIAL THRMPLAS 2022-06-01 04:50:00 Misael Moreira [facility] ACTIVATED PARTIAL THRMPLAS 2022-06-01 04:50:00 [facility]ael [facility] POCT GLUCOSE (AUTOMATED) 2022-06-01 02:25:00 Albaeni, Aiham [facility] POCT GLUCOSE (AUTOMATED) 2022-06-01 02:25:00 Aiden Prado [facility] CARDIAC CATHETERIZATION 2022-05-31 20:25:16 Aiden Prado [facility] CARDIAC CATHETERIZATION 2022-05-31 20:25:[address] [facility] CARDIAC CATHETERIZATION 2022-05-31 20:25:[address] [facility] CARDIAC CATHETERIZATION 2022-05-31 20:25:[address] [facility] CARDIAC CATHETERIZATION 2022-05-31 20:25:16 Eve [facility] CARDIAC CATHETERIZATION 2022-05-31 20:25:16 Aiden Prado [facility] POCT ACT LOW RANGE 2022-05-31 20:17:00 Aiden Prado [facility] POCT ACT LOW RANGE 2022-05-31 20:17:00 Aiden Prado [facility] POCT ACT LOW RANGE 2022-05-31 20:06:00 Eve terry [facility] POCT ACT LOW RANGE 2022-05-31 20:06:00 Aiden Prado [facility] CATH PROCEDURE LOG 2022-05-31 18:57:12 Aiden Prado [facility] CATH PROCEDURE LOG 2022-05-31 18:57:12 Aiden Prado [facility] POCT GLUCOSE (AUTOMATED) 2022-05-31 16:41:00 Aiden Prado [facility] POCT GLUCOSE (AUTOMATED) 2022-05-31 16:41:00 Aiden Prado [facility] POCT GLUCOSE (AUTOMATED) 2022-05-31 12:44:00 Aiden Prado [facility] POCT GLUCOSE (AUTOMATED) 2022-05-31 12:44:00 Aiden Prado [facility] MAGNESIUM 2022-05-31 09:44:00 [facility] BASIC METABOLIC PANEL (NA, 2022-05-31 09:44:00 Alice [facility] [place] K, CL, CO2, GLUCOSE, BUN, [facility] CREATININE, CA) CBC WITH DIFF 2022-05-31 09:44:00 [facility] MAGNESIUM 2022-05-31 09:44:00 [facility] BASIC METABOLIC PANEL (NA, 2022-05-31 09:44:00 Alice [facility] [place] K, CL, CO2, GLUCOSE, BUN, [facility] CREATININE, CA) CBC WITH DIFF 2022-05-31 09:44:00 [facility] POCT GLUCOSE (AUTOMATED) 2022-05-31 02:03:00 Aiden Prado [facility] POCT GLUCOSE (AUTOMATED) 2022-05-31 02:03:00 Aiden Prado [facility] POCT GLUCOSE (AUTOMATED) 2022-05-30 22:34:00 Aiden Prado [facility] POCT GLUCOSE (AUTOMATED) 2022-05-30 22:34:00 Aiden Prado [facility] POCT GLUCOSE (AUTOMATED) 2022-05-30 17:42:00 Aiden Prado [facility] POCT GLUCOSE (AUTOMATED) 2022-05-30 17:42:00 Aiden Prado [facility] POCT GLUCOSE (AUTOMATED) 2022-05-30 14:02:00 Aiden Prado [facility] POCT GLUCOSE (AUTOMATED) 2022-05-30 14:02:00 Aiden Prado [facility] of [facility] MAGNESIUM 2022-05-30 08:44:00 [facility] BASIC METABOLIC PANEL (NA, 2022-05-30 08:44:00 KeAlice fuentes [facility] [place] K, CL, CO2, GLUCOSE, BUN, Medica [facility] CREATININE, CA) CBC WITH DIFF 2022-05-30 08:44[facility]00 [facility]-30 08:44:00 [facility] BASIC METABOLIC PANEL (NA, 2022-05-30 08:44:00 Alice [facility] [place] K, CL, CO2, GLUCOSE, BUN, [facility] CREATININE, CA) CBC WITH DIFF 2022-05-30 08:44:00 [facility] POCT GLUCOSE (AUTOMATED) 2022-05-30 02:17:00 [facility] ([facility]ATED) 2022-05-30 02:17:00 [facility] PO[facility] GLUCOSE (AUTOMATED) 2022-05-29 23:27:00 Aiden Prado [facility] POCT GLUCOSE (AUTOMATED) 2022-05-29 23:27:00 [facility] PO[facility] GLUCOSE (AUTOMATED) 2022-05-29 18:04:00 Aiden Prado [facility] POCT GLUCOSE (AUTOMATED) 2022-05-29 18:04:00 Aiden Prado [facility] CBC WITH DIFF 2022-05-29 17:58:00 [facility] CBC WITH DIFF 2022-05-29 17:58:00 [facility] MAGNESIUM 2022-05-29 14:12:00 [facility] BASIC METABOLIC PANEL (NA, 2022-05-29 14:12:00 [facility] [place] K, CL, CO2, GLUCOSE, BUN, Medica [facility] Branch CREATININE, CA) ACTIVATED PARTIAL THRMPLAS 2022-05-29 14:12:00 Misael Moreira [facility] MAGNESIUM 2022-05-29 14:12:00 [facility] BASIC METABOLIC PANEL (NA, 2022-05-29 14:12:00 Alice Chua [facility] K, CL, CO2, GLUCOSE, BUN, Medica [facility] Branch CREATININE, CA) ACTIVATED PARTIAL THRMPLAS 2022-05-29 14:12:00 Misael Moreira [facility] POCT GLUCOSE (AUTOMATED) 2022-05-29 13:43:00 Aiden Prado [facility] POCT GLUCOSE (AUTOMATED) 2022-05-29 13:43:00 Aiden Prado [facility] ACTIVATED PARTIAL THRMPLAS 2022-05-29 06:45:00 Misael Moreira [facility] ACTIVATED PARTIAL THRMPLAS 2022-05-29 06:45:00 Misael Moreira [facility] POCT GLUCOSE (AUTOMATED) 2022-05-29 01:11:00 Aiden Prado [facility] POCT GLUCOSE (AUTOMATED) 2022-05-29 01:11:00 Aiden Prado [facility] ACTIVATED PARTIAL THRMPLAS 2022-05-28 21:09:00 Kaila Chaves [facility] ACTIVATED PARTIAL THRMPLAS 2022-05-28 21:09:00 Kaila Chaves [facility] TROPONIN I 2022-05-28 17:37:00 Angelina [facility] TROPONIN I 2022-05-28 17:37:00 [facility]ina [facility] PROTHROMBIN TIME / INR 2022-05-28 15:10:00 Misael Moreira [facility] ACTIVATED PARTIAL THRMPLAS 2022-05-28 15:10:00 Misael Moreira [facility] PROTHROMBIN TIME / INR 2022-05-28 15:10:00 Misael Moreira [facility] ACTIVATED PARTIAL THRMPLAS 2022-05-28 15:10:00 Misael Moreira [facility] TRANSTHORACIC ECHO (TTE) 2022-05-28 13:42:00 Saad Alfaro [facility] TRANSTHORACIC ECHO (TTE) 2022-05-28 13:42:00 Saad Alfaro [facility] COMPLETE [facility] MAGNESIUM 2022-05-28 09:48:00 [facility] TROPONIN I 2022-05-28 09:48:00 [facility] COMP. METABOLIC PANEL 2022-05-28 09:48:[address] [facility] [facility] ([id number]) [facility] CBC WITH DIFF 2022-05-28 09:48:00 Angelina [facility] GLYCOSYLATED HEMOGLOBIN 2022-05-28 09:48:00 Kaila Chaves [facility] MAGNESIUM 2022-05-28 09:48:00 Angelina [facility] TROPONIN I 2022-05-28 09:48:00 [facility] COMP. METABOLIC PANEL 2022-05-28 09:48:[address] [facility] ([id number]) [facility] CBC WITH DIFF 2022-05-28 09:48:00 Angelina [facility] GLYCOSYLATED HEMOGLOBIN 2022-05-28 09:48:00 Kaila Chaves [facility]) Medical Branch PHOSPHORUS 2022-05-28 05:09:00 Angelina [facility] FERRITIN SERUM 2022-05-28 05:09:00 Angelina [facility] VITAMIN B12, LEVEL 2022-05-28 05:09:00 Angelina tha [facility] TROPONIN I 2022-05-28 05:09:00 Angelina [facility] THYROID STIMULATING 2022-05-28 05:09:00 Angelina tha [facility] HORMONE Medical Branch LIPID PANEL (84354)(TOTAL 2022-05-28 05:09:00 Saad Alfaro [facility] CHOLESTEROL, Medical Branch TRIGLYCERIDES, HDL) IRON PANEL 2022-05-28 05:09:00 Angelina [facility] SEDIMENTATION RATE 2022-05-28 05:09:00 Angelina [facility] N-TERMINAL PRO-BNP 2022-05-28 05:09:00 Angelina tha [facility] VITAMIN D, 25-OH 2022-05-28 05:09:00 Angelina [facility] PROCALCITONIN 2022-05-28 05:09:00 Angelina [facility] PHOSPHORUS 2022-05-28 05:09:00 Angelina [facility] FERRITIN SERUM 2022-05-28 05:09:00 Angelina [facility] VITAMIN B12, LEVEL 2022-05-28 05:09:00 Angelina [facility] TROPONIN I 2022-05-28 05:09:00 Angelina [facility] THYROID STIMULATING 2022-05-28 05:09:00 Angelina tha [facility] HORMONE [facility] LIPID PANEL (60804)(TOTAL 2022-05-28 05:09:00 Saad Alfaro [facility] CHOLESTEROL, Medical Branch TRIGLYCERIDES, HDL) IRON PANEL 2022-05-28 05:09:00 Angelina [facility] SEDIMENTATION RATE 2022-05-28 05:09:00 Angelina [facility] N-TERMINAL PRO-BNP 2022-05-28 05:09:00 Angelina tha [facility] VITAMIN D, 25-OH 2022-05-28 05:09:00 Angelina [facility] PROCALCITONIN 2022-05-28 05:09:00 Angelina [facility] COVID-19 (ID NOW RAPID 2022-05-28 00:08:00 [facility] Branch LAB ONLY COVID 2022-05-28 00:08:00 Reba Mckeon [facility] INTERPRETATION [facility] COVID-19 (ID NOW RAPID 2022-05-28 00:08:00 Reba Mckeon [facility]) Medical Branch LAB ONLY COVID 2022-05-28 00:08:00 Reba Mckeon [facility] INTERPRETATION Medical Branch LIPASE 2022-05-27 23:22:00 Irwin Ramos [facility] MAGNESIUM 2022-05-27 23:22:00 [facility] TROPONIN I 2022-05-27 23:22:00 [facility] COMP. METABOLIC PANEL 2022-05-27 23:22:[address] [facility] ([id number]) Medical Branch DIFF CONSULT 2022-05-27 23:22:00 Angelina tha [facility] Branch CBC WITH DIFF 2022-05-27 23:22:00 [facility] GLYCOSYLATED HEMOGLOBIN 2022-05-27 23:22:00 Angelina [facility] PROTHROMBIN TIME / INR 2022-05-27 23:22:00 Irwin Ramos [facility] ACTIVATED PARTIAL THRMPLAS 2022-05-27 23:22:00 [facility] TIFFANIE [facility] LIPASE 2022-05-27 23:22:00 [facility] 2022-05-27 23:22:00 [facility] TROPONIN I 2022-05-27 23:22:00 [facility] COMP. METABOLIC PANEL 2022-05-27 23:22:00 Irwin Ramos [facility] ([id number]) [facility] DIFF CONSULT 2022-05-27 23:22:00 Angelina tha [facility] CBC WITH DIFF 2022-05-27 23:22:00 Singer [facility] GLYCOSYLATED HEMOGLOBIN 2022-05-27 23:22:00 Angelina tha [facility] (A1C) [facility] PROTHROMBIN TIME / INR 2022-05-27 23:22:00 Irwin Ramos [facility] ACTIVATED PARTIAL THRMPLAS 2022-05-27 23:22:00 Irwin Ramos [facility] TIFFANIE Medical Branch XR CHEST 1 VW 2022-05-27 23:18:00 Irwin Ramos [facility] Medical Branch XR CHEST 1 VW 2022-05-27 23:18:00 Irwin Ramos [facility] Medical Branch HB ECG ROUTINE & RHYTHM 2022-05-27 22:58:18 Singer [facility] Medical Branch HB ECG ROUTINE & RHYTHM 2022-05-27 22:58:18 Singer [facility] Medical Branch NOTICE OF PRIVACY 2022-05-27 22:50:07 Doctor Unassigned, [facility] [place] [facility] NOTICE OF PRIVACY 2022-05-27 22:50:07 Doctor Unassigned, [facility] [place] [facility] CONSENT/REFUSAL FOR 2022-05-27 22:49:29 Doctor Unageraigned, [facility] [place] [facility] CONSENT/REFUSAL FOR 2022-05-27 22:49:29 Doctor Unassigned, [facility] [place] [facility] HOSPITAL ADMISSION 2022-05-27 05:01:00 Doctor Unaandrey, [facility] [place] [facility] HOSPITAL ADMISSION 2022-05-27 05:01:00 Doctor Unassigned, [facility] [place] [facility] Knee replacement 2018-10-13 00:00:00 Madan montoya Bariatric operative 2015-09-12 00:00:00 Madan Easton procedure Repair of meniscus 2008-09-12 06:00:00 Madan Easton Fusion of joint of 2007-09-12 00:00:00 Madan Easton cervical spine with internal fixation by posterior approach Stent placement Madan Easton Encounters Start End Encounter Admission Attending Care Care Encounter Source Date/Time Date/Time Type Type Clinicians Facility Department ID 2023-01-26 2023-01-28 Outside QUETA ZHONG [id number] Memoria 13:49:37 04:59:59 Medical Neurology 29 l Records Lefty Easton 2023-01-26 2023-01-27 Outpatient MHMISCHER MHMISCHER [id number] 08:49:37 23:59:59 29 2023-01-20 2023-01-22 Outside MHIE MNA [id number] Memoria 18:02:19 04:59:59 Medical Neurology 28 l Records Lefty Easton 2023-01-20 2023-01-21 Outpatient MHMISCHER MHMISCHER [id number] 13:02:19 23:59:59 28 2023-01-19 2023-01-19 Ambulatory MHIE MNA [id number] Memoria 14:45:00 14:45:00 Pre-Reg Neurology 37 l Lefty Mylesann 2023-01-19 2023-01-19 Outpatient MHIE MHIE [id number] Memoria 09:45:00 09:45:00 37 l Rustam 2023-01-19 2023-01-19 Outpatient MHIE MHIE [id number] Memoria 09:45:00 09:45:00 37 cheryle Easton 2023-01-19 2023-01-19 Outpatient Cristóbal MHMISCHER MHMISCHER [id number] 09:45:00 09:45:00 Jacky 37 Ziggy 2023-01-18 2023-01-19 Outpatient MHIE MNA [id number] Memoria 15:00:00 04:59:59 Neurology 38 l Lefty Mylesann 2023-01-18 2023-01-18 Outpatient Cristóbal MHMISCHER MHMISCHER [id number] 10:00:00 23:59:59 Jacky 38 Ziggy 2023-01-18 2023-01-18 [facility] [id number] Univers 13:00:00 14:23:26 LUIZA spring [facility] 2023-01-18 2023-01-18 [facility] 1.2.840.114 [id number] Univers 13:00:00 14:23:26 Visit Luiza CAST 350.1.13.10 kassie Yost 4.2.7.2.686 David KNUTSON [id number] [address] 2023-01-18 2023-01-18 Outpatient MHIE MHIE [id number] Memoria 10:00:00 10:00:00 38 cheryle Easton 2023-01-18 2023-01-18 Outpatient MHIE MHIE [id number] Memoria 10:00:00 10:00:00 38 l Rustam 2023-01-15 2023-01-16 Outpt Diag [facility] [id number] Memoria 18:40:00 04:59:00 Services Outpatient 04 l Rima Easton [place] 2023-01-15 2023-01-16 Outpt Diag MHIE [facility] [id number] Memoria 18:40:00 04:59:00 Services Outpatient 04 l Rima Easton [place] 2023-01-15 2023-01-15 Outpatient Cristóbal, MHOIP MHOIP [id number] 13:40:00 23:59:00 Jacky 04 Ziggy 2023-01-11 2023-01-12 Outpt Diag MHIE [facility] [id number] Memoria 20:52:00 04:59:00 Services Outpatient 03 l Rima Easton [place] 2023-01-11 2023-01-12 Outpt Diag MHIE [facility] [id number] Memoria 20:52:00 04:59:00 Services Outpatient 03 l Rima Easton [place] 2023-01-11 2023-01-11 Outpatient Cristóbal, MHOIP MHOIP [id number] 15:52:00 23:59:00 Jacky 03 Ziggy 2023-01-05 2023-01-06 Outpatient MHIE MNA [id number] Memoria 21:15:00 04:59:59 Neurology 36 l Lefty Mylesann 2023-01-05 2023-01-06 Outpatient MHIE MNA [id number] Memoria 21:15:00 04:59:59 Neurology 36 l Lefty Mylesann 2023-01-05 2023-01-05 Outpatient Cristóbal MHMISCHER MHMISCHER [id number] 16:15:00 23:59:59 Jacky 36 Ziggy 2023-01-05 2023-01-05 Outpatient MHIE MHIE [id number] Memoria 16:15:00 16:15:00 36 cheryle Easton 2022-12-31 2023-01-01 Outpatient MHIE MNA [id number] Memoria 14:00:00 04:59:59 Neurology 35 l Lefty Easton 2022-12-31 2023-01-01 Outpatient MHIE MNA [id number] Memoria 14:00:00 04:59:59 Neurology 35 l Lefty Easton 2022-12-31 2022-12-31 Outpatient MARICARMEN AmbrocioSCHLUIZ [id number] 09:00:00 23:59:59 Jacky 35 Ziggy 2022-12-31 2022-12-31 Outpatient MHIE MHIE [id number] Memoria 09:00:00 09:00:00 35 l Rustam 2022-11-01 2022-11-01 Outpatient R JEREMY [facility] [id number] Univers 13:00:00 13:00:00 LUIZA spring [facility] 2022-09-16 2022-09-16 Outpatient R LOUISA BATRES [facility] [id number] Univers 10:30:00 10:30:00 LOUISA BATRES i [facility] 2022-09-13 2022-09-13 Outpatient Mitchell MALONE [facility] [id number] Univers 09:00:00 09:00:00 KRISSY tompkins [facility] 2022-09-13 2022-09-13 Orders Doctor KOLE 1.2.840.114 [id number] Univers 00:00:00 00:00:00 Only Unassigned, JACKELYN 350.1.13.10 ity of [place] [facility] 4.2.7.2.686 Jimmy as [phone] [address] 2022-08-30 2022-08-30 Clinical Data Management Manager Rehab, [facility] Cardiac [facility] 1.2. 840.114 [id number] Univers 09:00:00 10:04:39 Visit Krissy Malone 350.1.13.10 ity of [place] [phone] Co dical [facility] 2022-08-30 2022-08-30 Outpatient Mitchell MALONE [facility] [id number] Univers 09:00:00 09:00:00 KRISSY rincon [facility] 2022-08-27 2022-08-27 Clinical Data Management Manager Rehab, [facility] Cardiac [facility] 1.2. 840.114 [id number] Univers 08:00:00 09:36:55 Visit Krissy Malone SERENE 350.1.13.10 ity of [place] [phone] Co dical NAL 0 [facility] 2022-08-27 2022-08-27 Orders Doctor KOLE 1.2.840.114 [id number] Univers 00:00:00 00:00:00 Only Unassigned, JACKELYN 350.1.13.10 ity of [place] [facility] 4.2.7.2.686 Jimmy as [phone] [address] 2022-08-23 2022-08-23 Clinical Data Management Manager Rehab, [facility] Cardiac [facility] 1.2. 840.114 [id number] [facility] 09:00:00 09:54:16 Visit Eliza Maloneradhalexie SERENE 350.1.13.10 it[place] [phone] Co dical NAL [address] [place] [address] 2022-08-17 2022-08-17 Clinical Data Management Manager Rehab, [facility] Cardiac [facility] 1.2. 840.114 [id number] [facility] 08:00:00 09:48:37 Visit Eliza Maloneradhalexie SERENE 350.1.13.10 [place] of [place] [phone] Co dical NAL 0 [facility] 2022-08-17 2022-08-17 Orders Doctor SHARIF 1.2.840.114 [id number] Univers 00:00:00 00:00:00 Only Unassigned, JACKELYN 350.1.13.10 ity of [place] [facility] 4.2.7.2.686 Jimmy as [phone] [address] 2022-08-16 2022-08-16 Clinical Data Management Manager Rehab, [facility] Cardiac [facility] 1.2. 840.114 [id number] [facility] 09:00:00 10:00:14 Visit Eliza Maloneradhalexie SERENE 350.1.13.10 [place] [phone] Co dical NAL 0 [facility] 2022-08-12 2022-08-12 Clinical Data Management Manager Rehab, [facility] Cardiac [facility] 1.2. 840.114 [id number] Univers 08:00:00 09:31:10 Visit Krissy Malone 350.1.13.10 it[place] of [place] [phone] Co dical NAL 060 [facility] 2022-08-11 2022-08-11 Clinical Data Management Manager Rehab, [facility] Cardiac [facility] 1.2. 840.114 [id number] Univers 09:00:00 10:02:13 Visit Krissy MaloneTON 350.1.13.10 ity of [place] [phone] Co dical NAL 0 [facility] 2022-08-11 2022-08-11 Outpatient R MICHAEL [facility] [id number] Univers 09:00:00 09:00:00 KRISSY ity o f [facility] 2022-08-10 2022-08-10 Clinical Data Management Manager Rehab, [facility] Cardiac [facility] 1.2. 840.114 [id number] [facility] 08:00:00 09:56:29 Visit Krissy Malone 350.1.13.10 it[place] of [place] [phone] Co dical NAL 060 [facility] 2022-08-09 2022-08-09 Clinical Data Management Manager Rehab, [facility] Cardiac [facility] 1.2. 840.114 [id number] Univers 09:00:00 10:02:46 Visit Krissy Malone 350.1.13.10 it[place] of [place] [phone] Co dical NAL 060 [facility] 2022-08-04 2022-08-04 Clinical Data Management Manager Rehab, [facility] Cardiac [facility] 1.2. 840.114 [id number] Univers 09:00:00 13:48:35 Visit Krissy MaloneTON 350.1.13.10 it[place] [phone] Co dical NAL 060 [facility] 2022-08-04 2022-08-04 Orders Doctor KOLE 1.2.840.114 [id number] Univers 00:00:00 00:00:00 Only Unassigned, JACKELYN 350.1.13.10 ity of [place] [facility] 4.2.7.2.686 Jimmy as [phone] [address] 2022-08-03 2022-08-03 Clinical Data Management Manager Rehab, [facility] Cardiac [facility] 1.2. 840.114 [id number] Univers 08:00:00 11:44:37 Visit Krissy Malone 350.1.13.10 it[place] [phone] [facility] NAL [address] [place] [address] 2022-08-03 2022-08-03 Orders Doctor SHARIF 1.2.840.114 [id number] Univers 00:00:00 00:00:00 Only Unassigned, JACKELYN 350.1.13.10 ity of [place] [facility] 4.2.7.2.686 Jimmy as [phone] [address] 2022-08-02 2022-08-02 Clinical Data Management Manager Rehab, [facility] Cardiac [facility] 1.2. 840.114 [id number] Univers 09:00:00 11:02:02 Visit Krissy Malone 350.1.13.10 it[place] [phone] [facility] NAL [address] [place] [address] 2022-08-02 2022-08-02 Orders Doctor SHARIF 1.2.840.114 [id number] Univers 00:00:00 00:00:00 Only Unassigned, JACKELYN 350.1.13.10 ity of [place] [facility] 4.2.7.2.686 Jimmy as [phone] [address] 2022-07-29 2022-07-29 Clinical Data Management Manager Rehab, [facility] Cardiac [facility] 1.2. 840.114 [id number] Univers 09:00:00 09:08:26 Visit Krissy Malone 350.1.13.10 it[place] of [place] [phone] Co dical NAL 060 [facility] 2022-07-29 2022-07-29 Orders Doctor KOLE 1.2.840.114 [id number] Univers 00:00:00 00:00:00 Only Unassigned, JACKELYN 350.1.13.10 ity of [place] [facility] 4.2.7.2.686 Jimmy as [phone] [address] 2022-07-28 2022-07-28 Clinical Data Management Manager Rehab, [facility] Cardiac [facility] 1.2. 840.114 [id number] Univers 09:00:00 10:05:25 Visit Krissy Malone 350.1.13.10 [facility] 4.[place] [phone] Co dical NAL 0 [facility] 2022-07-28 2022-07-28 Orders Doctor SHARIF 1.2.840.114 [id number] Univers 00:00:00 00:00:00 Only Unassigned, JACKELYN 350.1.13.10 ity of [place] [facility] 4.2.7.2.686 Jimmy as [phone] [address] 2022-07-26 2022-07-26 Clinical Data Management Manager Rehab, [facility] Cardiac [facility] 1.2. 840.114 [id number] Univers 09:00:00 10:03:56 Visit Krissy Malone 350.1.13.10 ity [facility] 4.[place] [phone] Co dical NAL [address] [place] [address] 2022-07-26 2022-07-26 Orders Doctor SHARIF 1.2.840.114 [id number] Univers 00:00:00 00:00:00 Only Unassigned, JACKELYN 350.1.13.10 ity of [place] [facility] 4.2.7.2.686 Jimmy as [phone] [address] 2022-07-23 2022-07-23 Clinical Data Management Manager Rehab, [facility] Cardiac [facility] 1.2. 840.114 [id number] Univers 09:00:00 10:44:28 Visit Krissy Malone 350.1.13.10 ity of [place] [phone] Co dical NAL 0 [facility] 2022-07-21 2022-07-21 Clinical Data Management Manager Rehab, [facility] Cardiac [facility] 1.2. 840.114 [id number] [facility] 09:00:00 09:59:12 Visit Krissy Malone 350.1.13.10 ity [facility] 4.[place].2.[place] [phone] Co dical NAL 0 [facility] 2022-07-19 2022-07-19 Clinical Data Management Manager Rehab, [facility] Cardiac [facility] 1.2. 840.114 [id number] [facility] 09:00:00 10:14:29 Visit Krissy Malone 350.1.13.10 ity [facility] 4.[place] [phone] [facility] NAL [address] [place] [address] 2022-07-19 2022-07-19 Orders Doctor KOLE 1.2.840.[id number] [place] [address] 00:00:00 00:00:00 Only Unassigned, JACKELYN 350.1.13.10 [facility] 4.2.7.2.686 Jimmy as [phone] [address] 2022-07-16 2022-07-16 Clinical Data Management Manager Rehab, [facility] Cardiac [facility] 1.2. 840.114 [id number] [facility] 09:00:00 10:20:30 Visit Krissy Malone 350.1.13.10 ity [facility] 4[place] [phone] Co dical NAL 0 [facility] 2022-07-14 2022-07-14 Clinical Data Management Manager Rehab, [facility] Cardiac [facility] 1.2. 840.114 [id number] [facility] 16:15:00 16:48:44 Visit Krissy Malone 350.1.13.10 ity [facility] 4.[place] [phone] Co dical NAL [address] [place] [address] 2022-07-12 2022-07-12 Clinical Data Management Manager Rehab, [facility] Cardiac [facility] 1.2. 840.114 [id number] Univers 09:00:00 11:56:39 Visit Krissy Malone SERENE 350.1.13.10 ity [facility] 4.2.[place] [phone] Co dical NAL 060 [facility] 2022-07-12 2022-07-12 Outpatient R MICHAEL, [facility] [id number] [facility] 09:00:00 09:00:00 KRISSY ity o f [facility] 2022-07-09 2022-07-09 Clinical Data Management Manager Rehab, [facility] Cardiac [facility] 1.2. 840.114 [id number] [facility] 09:00:00 09:52:06 Visit Michael Johnlexie SERENE 350.1.13.10 ity [facility] 4.[place] [phone] Co dical NAL 0 [facility] 2022-07-09 2022-07-09 Orders Doctor SHARIF 1.2.840.[id number] [place] [address] 00:00:00 00:00:00 Only Unassigned, JACKELYN 350.1.13.10 [facility] 4.2.7.2.686 Jimmy as [phone] [address] 2022-07-07 2022-07-07 Clinical Data Management Manager Rehab, [facility] Cardiac [facility] 1.2. 840.114 [id number] Univers 09:00:00 10:01:27 Visit Michael Johnlexie SERENE 350.1.13.10 ity of [facility] 4.2.[place] [phone] Co dical NAL 060 [facility] 2022-07-05 2022-07-05 Clinical Data Management Manager Rehab, [facility] Cardiac [facility] 1.2. 840.114 [id number] Univers 09:00:00 10:40:37 Visit Michael Krissy CAST 350.1.13.10 ity of [facility] 4.[place] [phone] Co dical NAL 060 [facility] 2022-07-04 2022-07-04 Orders Doctor SHARIF 1.2.840.114 [id number] Univers 00:00:00 00:00:00 Only Unassigned, JACKELYN 350.1.13.10 ity of [place] [facility] 4.2.7.2.686 Jimmy as [phone] [address] 2022-07-01 2022-07-01 Clinical Data Management Manager Rehab, Adc Cardiac [facility] 1.2. 840.114 [id number] Univers 13:00:00 14:48:48 Visit Krissy Malone 350.1.13.10 ity of [place] [phone] Co dical NAL 060 [facility] 2022-07-01 2022-07-01 Orders Doctor SHARIF 1.2.840.114 [id number] Univers 00:00:00 00:00:00 Only Unassigned, JACKELYN 350.1.13.10 ity of [place] [facility] 4.2.7.2.686 Jimmy as [phone] [address] 2022-06-30 2022-06-30 [facility] [id number] Univers 13:40:00 14:11:03 LUIZA ity of [facility] 2022-06-30 2022-06-30 Office [facility] 1.2.840.114 [id number] Univers 13:40:00 14:11:03 Visit Luiza CAST 350.1.13.10 i ty of [place] [phone] Co dical NAL 059 [facility] 2022-06-30 2022-06-30 Orders Doctor SHARIF 1.2.840.114 [id number] Univers 00:00:00 00:00:00 Only Unassigned, JACKELYN 350.1.13.10 ity of [place] [facility] 4.2.7.2.686 Jimmy as [phone] [address] 2022-06-02 2022-06-02 Transition JACKY Peralta 1.2.840.114 [id number] Univers 00:00:00 00:00:00 of Care Tennille GERARD 350.1.13.10 [place] [phone] [facility] [address] 2022-05-27 2022-06-01 Hospital Reba Mckeon 1.2.84 0.114 [id number] Univers 17:54:00 16:44:00 Encounter Saad Alfaro 350.1.13.10 ity of [facility] 4.2.7.2.686 [place] Aiden Prado [id number] Medical [address] 2022-05-27 2022-06-01 Inpatient [facility]E [facility] [id number] Univers 17:54:00 16:44:00 [facility] ity of [facility] 2022-06-01 2022-06-01 RefLayla Manzano [facility] 1.2.840.114 [id number] Univers 00:00:00 00:00:00 Z. PRIMARY 350.1.13.10 [place] [id number] Co dical [address] 2022-05-31 2022-05-31 Surgery EDGARD De [place] 1.2.840.114 [id number] Univers 13:48:00 15:48:00 Davie HAYDEN 350.1.13.10 it y of [facility] 4.2.7.2.686 Jimmy as [id number] [facility] [address] 2022-03-16 2022-03-16 Ambulatory nullFlavo MNA [id number] Memoria 16:15:00 16:15:00 [facility]22-03-16 Ambulatory nullFlavo MNA [id number] Memoria 16:15:00 16:15:00 Pre-Reg r Neurology 33 l Lefty Gloster 2022-03-16 2022-03-16 Outpatient MADONNAIE QUETA [id number] Memoria 11:15:00 11:15:00 33 l [place] 2022-03-16 2022-03-16 Outpatient MARICARMEN Ambrocio [id number] 11:15:00 11:15:00 Jacky 33 Ziggy 2022-02-19 2022-02-19 Ambulatory nullFlavo MNA [id number] Memoria 15:45:00 15:45:00 Pre-Reg r Neurology 34 l Lefty Easton 2022-02-19 2022-02-19 Ambulatory nullFlavo MNA [id number] Memoria 15:45:00 15:45:00 Pre-Reg r Neurology 34 l Lefty [place]on 2022-02-19 2022-02-19 Outpatient MHIE MHIE [id number] Memoria 10:45:00 10:45:00 34 cheryle Easton 2022-02-19 2022-02-19 [id number] 10:45:00 10:45:00 Jacky 34 Ziggy 2022-01-19 2022-01-19 Ambulatory nullFlavo MNA [id number] Memoria 15:00:00 15:00:00 Pre-Reg r Neurology 29 l Lefty Easton 2022-01-19 2022-01-19 Ambulatory nullFlavo MNA [id number] Memoria 15:00:00 15:00:00 Pre-Reg r Neurology 29 l Lefty Easton 2022-01-19 2022-01-19 Outpatient MHIE MHIE [id number] Memoria 10:00:00 10:00:00 29 cheryle Easton 2022-01-19 2022-01-19 [facility] [id number] 10:00:00 10:00:00 Jacky 29 Ziggy 2021-12-10 2021-12-11 Outpatient nullFlavo MNA [id number] Memoria 16:45:00 04:59:59 r Neurology 31 l Lefty Easton 2021-12-10 2021-12-11 Outpatient nullFlavo MNA [id number] Memoria 16:45:00 04:59:59 r Neurology 31 l Lefty [place] 2021-12-10 2021-12-10 Outpatient MADONNA AmbrocioMISCHER MHMISCHER [id number] 11:45:00 23:59:59 Jacky 31 Ziggy 2021-12-10 2021-12-10 Outpatient MHIE MHIE [id number] Memoria 11:45:00 11:45:00 31 cheryle [place]on 2021-12-03 2021-12-04 Outpatient nullFlavo MHMG [id number] Memoria 14:30:00 04:59:59 r Primary [address] 2021-12-03 2021-12-04 Outpatient nullFlavo MHMG [id number] Memoria 14:30:00 04:59:59 r Primary [address] 2021-12-03 2021-12-03 [place] [id number] 09:30:00 23:59:59 Danny Aaron 32 2021-12-03 2021-12-03 Outpatient MHIE MHIE [id number] Memoria 09:30:00 09:30:00 32 cheryle [place]on 2021-11-20 2021-11-21 Outpatient nullFlavo MNA [id number] Memoria 16:15:00 05:59:59 r Neurology 30 l Lefty [place] 2021-11-20 2021-11-21 Outpatient nullFlavo MNA [id number] Memoria 16:15:00 05:59:59 r Neurology 30 l Lefty [place]on 2021-11-20 2021-11-20 Outpatient MADONNA AmbrocioNDSCHER MHMISCHER [id number] 10:15:00 23:59:59 Jacky 30 Ziggy 2021-11-20 2021-11-20 Outpatient MHIE MHIE [id number] Memoria 10:15:00 10:15:00 30 cheryle [place]on 2021-10-21 2021-10-22 Outpatient nullFlavo MNA [id number] Memoria 16:00:00 05:59:59 r Neurology 28 l Lefty Easton 2021-10-21 2021-10-22 Outpatient nullFlavo MNA [id number] Memoria 16:00:00 05:59:59 r Neurology 28 l Lefty [place]on 2021-10-21 2021-10-21 Outpatient MADONNA AmbrocioMISCHER MHMISCHER [id number] 10:00:00 23:59:59 Jacky 28 Ziggy 2021-10-21 2021-10-21 Outpatient MHIE MHIE [id number] Memoria 10:00:00 10:00:00 28 cheryle [place]on 2021-09-08 2021-09-09 Outpatient nullFlavo MNA [id number] Memoria 16:00:00 05:59:59 r Neurology 26 l Lefty [place]on 2021-09-08 2021-09-09 Outpatient nullFlavo MNA [id number] Memoria 16:00:00 05:59:59 r Neurology 26 l Lefty [place] 2021-09-08 2021-09-08 Outpatient RAYNE AmbrocioSCHER MISCHER [id number] 10:00:00 23:59:59 Jacky 26 Ziggy 2021-09-08 2021-09-08 Outpatient MHIE MHIE [id number] Memoria 10:00:00 10:00:00 26 cheryle Eatson 2021-08-11 2021-08-12 Outpatient nullFlavo MHMG [id number] Memoria 17:00:00 05:59:59 r Primary [address] 2021-08-11 2021-08-12 Outpatient nullFlavo MHMG [id number] Memoria 17:00:00 05:59:59 r Primary [address] 2021-08-11 2021-08-11 Outpatient VISIT, MHMG MHMG [id number] 11:00:00 23:59:59 NURSE AVN 27 2021-08-11 2021-08-11 Outpatient MHIE MHIE [id number] Memoria 11:00:00 11:00:00 27 cheryle [place]on 2021-07-28 2021-07-29 Outpatient nullFlavo MNA [id number] Memoria 16:15:00 05:59:59 r Neurology 24 l Lefty [place] 2021-07-28 2021-07-29 Outpatient nullFlavo MNA [id number] Memoria 16:15:00 05:59:59 r Neurology 24 cheryle Mylesann 2021-07-28 2021-07-28 Outpatient RAYNE AmbrocioSCHER MISCHER [id number] 10:15:00 23:59:59 Jacky Elliott Trinh 2021-07-28 2021-07-28 Outpatient MHIE MHIE [id number] Memoria 10:15:00 10:15:00 24 cheryle MylesGloster 2021-07-16 2021-07-18 Phone nullFlavo MHMG [id number] Memoria 14:34:45 04:59:59 Message r Primary 27 l Bhargav plata 2021-07-16 2021-07-18 Phone nullFlavo MHMG [id number] Memoria 14:34:45 04:59:59 Message r Primary [address] nn 2021-07-16 2021-07-17 Outpatient MHMG MHMG [id number] 09:34:45 23:59:59 27 2021-07-14 2021-07-15 Outpatient nullFlavo MHMG [id number] Memoria 18:00:00 04:59:59 r Primary 25 cheryle plata 2021-07-14 2021-07-15 Outpatient nullFlavo MHMG [id number] Memoria 18:00:00 04:59:59 r Primary 25 l Bhargav plata 2021-07-14 2021-07-14 Outpatient Jackie MG MHMG [id number] 13:00:00 23:59:59 Danny Aaron 25 2021-07-14 2021-07-14 Outpatient MHIE MHIE [id number] Memoria 13:00:00 13:00:00 25 cheryle Rustam 2021-07-03 2021-07-03 Ambulatory nullFlavo MNA [id number] Memoria 16:15:00 16:15:00 Pre-Reg r Neurology 22 l Lefty Mylesann 2021-07-03 2021-07-03 Ambulatory nullFlavo MNA [id number] Memoria 16:15:00 16:15:00 Pre-Reg r Neurology 22 l [place] Rustam 2021-07-03 2021-07-03 Outpatient MHIE MHIE [id number] Memoria 11:15:00 11:15:00 22 cheryle Rustam 2021-07-03 2021-07-03 Outpatient MARICARMEN AmbrocioSCHLUIZ [id number] 11:15:00 11:15:00 Jacky Trinh 2021-06-29 2021-06-30 Outpatient nullFlavo MNA [id number] Memoria 16:15:00 04:59:59 r Neurology 23 l [place] Rustam 2021-06-29 2021-06-30 Outpatient nullFlavo MNA [id number] Memoria 16:15:00 04:59:59 r Neurology 23 l Lefty Easton 2021-06-29 2021-06-29 Outpatient RAYNE AmbrocioSCHER MISCHER [id number] 11:15:00 23:59:59 Jacky 23 Ziggy 2021-06-29 2021-06-29 Outpatient MHIE MHIE [id number] Memoria 11:15:00 11:15:00 23 cheryle [place] 2021-06-05 2021-06-06 Outpatient nullFlavo MNA [id number] Memoria 14:45:00 04:59:59 r Neurology 21 l Lefty [place] 2021-06-05 2021-06-06 Outpatient nullFlavo MNA [id number] Memoria 14:45:00 04:59:59 r Neurology 21 l Lefty Mylesann 2021-06-05 2021-06-05 [facility] [id number] 09:45:00 23:59:59 Jacky 21 Ziggy 2021-06-05 2021-06-05 Outpatient MHIE MHIE [id number] Memoria 09:45:00 09:45:00 21 cheryle [place] 2021-05-20 2021-05-21 Outpatient nullFlavo MNA [id number] Memoria 15:45:00 04:59:59 r Neurology 20 l Lefty Mylesann 2021-05-20 2021-05-21 Outpatient nullFlavo MNA [id number] Memoria 15:45:00 04:59:59 r Neurology 20 l Lefty Mylesann 2021-05-20 2021-05-20 Outpatient MADONNA AmbrocioNDSCHER MISCHER [id number] 10:45:00 23:59:59 Jacky 20 Ziggy 2021-05-20 2021-05-20 Outpatient MHIE MHIE [id number] Memoria 10:45:00 10:45:00 20 cheryle Rustam 2021-04-28 2021-04-30 Phone nullFlavo MHMG [id number] Memoria 14:11:21 04:59:59 Message r Primary [address] 2021-04-28 2021-04-30 Phone nullFlavo MHMG [id number] Memoria 14:11:21 04:59:59 Message r Primary 26 l Bhargav plata 2021-04-28 2021-04-29 Outpatient MHMG MHMG [id number] 09:11:21 23:59:59 26 2021-04-28 2021-04-29 Outpatient nullFlavo MNA [id number] Memoria 21:15:00 04:59:59 r Neurology 19 l Lefty [place] 2021-04-28 2021-04-29 Outpatient nullFlavo MNA [id number] Memoria 21:15:00 04:59:59 r Neurology 19 l Lefty [place]on 2021-04-28 2021-04-28 Outpatient Cristóbal MISCHER MHMISCHER [id number] 16:15:00 23:59:59 Jacky David Trinh 2021-04-28 2021-04-28 Outpatient MHIE MHIE [id number] Memoria 16:15:00 16:15:00 19 cheryle [place] 2021-04-21 2021-04-22 [place] [id number] Memoria 20:30:00 04:59:59 r Primary [address] 2021-04-21 2021-04-22 Outpatient nullFlavo MHMG [id number] Memoria 20:30:00 04:59:59 r Primary [address] 2021-04-21 2021-04-21 Outpatient Jackie MG MHMG [id number] 15:30:00 23:59:59 Danny Aarno 18 2021-04-21 2021-04-21 Outpatient MHIE MHIE [id number] Memoria 15:30:00 15:30:00 18 cheryle [place] 2021-01-23 2021-01-25 Phone nullFlavo MHMG [id number] Memoria 19:01:15 04:59:59 Message r Primary [address] 2021-01-23 2021-01-25 Phone nullFlavo MHMG [id number] Memoria 19:01:15 04:59:59 Message r Primary [address] 2021-01-23 2021-01-24 Outpatient MHMG MHMG [id number] 14:01:15 23:59:59 25 2021-01-02 2021-01-04 Phone nullFlavo MHMG [id number] Memoria 12:54:42 04:59:59 Message r Primary [address] nn 2021-01-02 2021-01-04 Phone nullFlavo MHMG [id number] Memoria 12:54:42 04:59:59 Message r Primary [address] nn 2021-01-02 2021-01-03 Outpatient MHMG MHMG [id number] 07:54:42 23:59:59 24 2020-12-30 2021-01-01 Phone nullFlavo MHMG [id number] Memoria 16:52:37 04:59:59 Message r Primary [address] nn 2020-12-30 2021-01-01 Phone nullFlavo MHMG [id number] Memoria 16:52:37 04:59:59 Message r Primary [address] 2020-12-30 2020-12-31 Outpatient MHMG MHMG [id number] 11:52:37 23:59:59 23 2020-12-17 2020-12-18 Outpatient nullFlavo MHMG [id number] Memoria 19:30:00 04:59:59 r Primary [address] nn 2020-12-17 2020-12-18 Outpatient nullFlavo MHMG [id number] Memoria 19:30:00 04:59:59 r Primary [address] 2020-12-17 2020-12-17 Outpatient Mejia, MHMG MHMG [id number] 14:30:00 23:59:59 Danny Aaron 17 2020-12-17 2020-12-17 Outpatient MHIE MHIE [id number] Memoria 14:30:00 14:30:00 17 cheryle [place]on 2020-10-22 2020-10-23 Outpatient nullFlavo MHMG [id number] Memoria 19:45:00 05:59:59 r Primary [address] 2020-10-22 2020-10-23 Outpatient nullFlavo MHMG [id number] Memoria 19:45:00 05:59:59 r Primary [address] 2020-10-22 2020-10-22 Outpatient Jackie MHMG MHMG [id number] 13:45:00 23:59:59 Danny Aaron 16 2020-10-22 2020-10-22 Outpatient MHIE MHIE [id number] Memoria 13:45:00 13:45:00 16 cheryle [place]on 2020-08-21 2020-08-21 Ambulatory nullFlavo MNA [id number] Memoria 15:30:00 15:30:00 Pre-Reg r Neurology 15 l Lefty [place]on 2020-08-21 2020-08-21 Ambulatory nullFlavo MNA [id number] Memoria 15:30:00 15:30:00 Pre-Reg r Neurology 15 cheryle [place]on 2020-08-21 2020-08-21 Outpatient MHIE MHIE [id number] Memoria 09:30:00 09:30:00 15 cheryle Gloster 2020-08-21 2020-08-21 [id number] 09:30:00 09:30:00 Jacky Jasmina Ziggy 2020-07-28 2020-07-30 Phone nullFlavo MHMG [id number] Memoria 13:57:18 05:59:59 Message r Primary [address] 2020-07-28 2020-07-30 Phone nullFlavo MHMG [id number] Memoria 13:57:18 05:59:59 Message r Primary [address] 2020-07-28 2020-07-30 Phone nullFlavo MHMG [id number] Memoria 13:56:57 05:59:59 Message r Primary [address] 2020-07-28 2020-07-30 Phone nullFlavo MHMG [id number] Memoria 13:56:57 05:59:59 Message r Primary [address] 2020-07-28 2020-07-29 Outpatient MHMG MHMG [id number] 07:57:18 23:59:59 22 2020-07-28 2020-07-29 Outpatient MHMG MHMG [id number] 07:56:57 23:59:59 21 2020-07-10 2020-07-11 Outpatient nullFlavo MNA [id number] Memoria 15:00:00 04:59:59 r Neurology 14 cheryle [place]on 2020-07-10 2020-07-11 Outpatient nullFlavo MNA [id number] Memoria 15:00:00 04:59:59 r Neurology 14 cheryle [place]on 2020-07-10 2020-07-10 [facility] [id number] 10:00:00 23:59:59 Jacky Petar Trinh 2020-07-10 2020-07-10 Outpatient MHIE MHIE [id number] Memoria 10:00:00 10:00:00 14 cheryle [place] 2020-07-07 2020-07-09 Phone nullFlavo MHMG [id number] Memoria 15:35:25 04:59:59 Message r Primary [address] 2020-07-07 2020-07-09 Phone nullFlavo MHMG [id number] Memoria 15:35:25 04:59:59 Message r Primary [address] 2020-07-07 2020-07-08 Outpatient MHMG MHMG [id number] 10:35:25 23:59:59 20 2020-06-10 2020-06-11 Between nullFlavo MHMG [id number] Memoria 19:07:41 19:07:41 Visit r Primary [address] 2020-06-10 2020-06-11 Between nullFlavo MHMG [id number] Memoria 19:07:41 19:07:41 Visit r Primary [address] 2020-06-10 2020-06-11 Outpatient MHMG MHMG [id number] 14:07:41 14:07:41 29 2020-06-09 2020-06-11 Phone nullFlavo MHMG [id number] Memoria 16:45:06 04:59:59 Message r Primary [address] 2020-06-09 2020-06-11 Phone nullFlavo MHMG [id number] Memoria 16:45:06 04:59:59 Message r Primary [address] 2020-06-09 2020-06-10 Outpatient MHMG MHMG [id number] 11:45:06 23:59:59 19 2020-06-07 2020-06-08 Outpt Diag nullFlavo [facility] [id number] Memoria 11:38:00 04:59:00 Services r Outpatient 02 cheryle [place] 2020-06-07 2020-06-08 [place] [id number] Memoria 11:38:00 04:59:00 Services r Outpatient 02 cheryle [place] 2020-06-07 2020-06-07 Outpatient MejiaMADONNA sonOIP MHOIP [id number] 06:38:00 23:59:00 Danny Aaron 02 2020-06-04 2020-06-06 Phone nullFlavo MHMG [id number] Memoria 12:33:26 04:59:59 Message r Primary [address] 2020-06-04 2020-06-06 Phone nullFlavo MHMG [id number] Memoria 12:33:26 04:59:59 Message r Primary [address] 2020-06-04 2020-06-05 Outpatient MHMG MHMG [id number] 07:33:26 23:59:59 18 2020-06-03 2020-06-04 Outpatient nullFlavo MHMG [id number] Memoria 15:15:00 04:59:59 r Primary [address] 2020-06-03 2020-06-04 Outpatient nullFlavo MHMG [id number] Memoria 15:15:00 04:59:59 r Primary [address] 2020-06-03 2020-06-03 Outpatient Jackie MHMG MHMG [id number] 10:15:00 23:59:59 Danny Aaron 13 2020-06-03 2020-06-03 Outpatient MHIE MHIE [id number] Memoria 10:15:00 10:15:00 13 cheryle [place] 2020-04-18 2020-04-20 Phone nullFlavo MHMG [id number] Memoria 12:45:38 04:59:59 Message r Primary [address] 2020-04-18 2020-04-20 Phone nullFlavo MHMG [id number] Memoria 12:45:38 04:59:59 Message r Primary [address] 2020-04-18 2020-04-19 Outpatient MHMG MHMG [id number] 07:45:38 23:59:59 17 2020-04-15 2020-04-15 Outpatient MHIE MHIE [id number] Memoria 16:00:00 16:00:00 12 cheryle [place] 2020-04-15 2020-04-15 Outpatient MHIE MHIE [id number] Memoria 16:00:00 16:00:00 12 cheryle [place] 2020-02-22 2020-02-23 Between nullFlavo MHMG [id number] Memoria 13:52:50 13:52:50 Visit r Primary [address] 2020-02-22 2020-02-23 Between nullFlavo MHMG [id number] Memoria 13:52:50 13:52:50 Visit r Primary [address] [facility] [address] 2020-02-22 2020-02-23 Outpatient MHMG MHMG [id number] 08:52:50 08:52:50 25 2020-02-22 2020-02-23 [place] [id number] Memoria 13:15:00 04:59:59 r Primary [address] [facility] [address] 2020-02-22 2020-02-23 [place] [id number] Memoria 13:15:00 04:59:59 r Primary [address] [facility] [address] 2020-02-22 2020-02-22 Outpatient Janecek, MG MHMG [id number] 08:15:00 23:59:59 Osman Kevin Cook 2020-02-21 2020-02-22 Between nullFlavo MHMG [id number] Memoria 21:48:44 21:48:44 Visit r Primary [address] [facility] [address] 2020-02-21 2020-02-22 Between nullFlavo MHMG [id number] Memoria 21:48:44 21:48:44 Visit r Primary [address] [facility] [address] 2020-02-21 2020-02-22 Outpatient MHMG MHMG [id number] 16:48:44 16:48:44 24 2020-02-22 2020-02-22 Outpatient MHIE MHIE [id number] Memoria 08:15:00 08:15:00 11 cheryle [place]on 2020-01-14 2020-01-16 Phone nullFlavo MHMG [id number] Memoria 13:04:38 04:59:59 Message r Primary [address] nn 2020-01-14 2020-01-16 Phone nullFlavo MHMG [id number] Memoria 13:04:38 04:59:59 Message r Primary [address] nn 2020-01-14 2020-01-15 Outpatient MHMG MHMG [id number] 08:04:38 23:59:59 16 2019-10-08 2019-10-10 Phone nullFlavo MHMG [id number] Memoria 13:48:39 05:59:59 Message r Primary [address] 2019-10-08 2019-10-10 Phone nullFlavo MHMG [id number] Memoria 13:48:39 05:59:59 Message r Primary [address] 2019-10-08 2019-10-09 Outpatient MHMG MHMG [id number] 07:48:39 23:59:59 15 2019-08-20 2019-08-22 Phone nullFlavo MHMG [id number] Memoria 20:36:04 05:59:59 Message r Primary [address] 2019-08-20 2019-08-22 Phone nullFlavo MHMG [id number] Memoria 20:36:04 05:59:59 Message r Primary [address] 2019-08-20 2019-08-21 Outpatient MHMG MHMG [id number] 14:36:04 23:59:59 14 2019-08-08 2019-08-09 Between nullFlavo MHMG [id number] Memoria 14:32:23 14:32:23 Visit r Primary [address] 2019-08-08 2019-08-09 Between nullFlavo MHMG [id number] Memoria 14:32:23 14:32:23 Visit r Primary [address] 2019-08-08 2019-08-09 Outpatient MHMG MHMG [id number] 08:32:23 08:32:23 20 2019-08-07 2019-08-08 Outpatient nullFlavo MHMG [id number] Memoria 19:45:00 05:59:59 r Primary [address] 2019-08-07 2019-08-08 [place] [id number] Memoria 19:45:00 05:59:[address] r [address] 2019-08-07 2019-08-08 Outpt Diag nullFlavo [facility] [id number] Memoria 21:00:00 05:59:00 Services r Outpatient 01 Rima Easton [place] 2019-08-07 2019-08-08 Outpt Diag nullFlavo [facility] [id number] Memoria 21:00:00 05:59:00 Services r Outpatient 01 cheryle Easton [place] 2019-08-07 2019-08-[place] [id number] 13:45:00 23:59:59 Danny Aaron 10 2019-08-07 2019-08-07 Outpatient Jackie, 2.16.840. [id number] 15:00:00 23:59:00 Danny Aaron [id number] [id number] 2019-08-07 2019-08-07 Outpatient MHIE IE [id number] Memoria 13:45:00 13:45:00 10 cheryle [place] 2019-07-02 2019-07-04 Phone nullFlavo MG [id number] Memoria 13:33:02 04:59:59 Message r Primary [address] 2019-07-02 2019-07-04 Phone nullFlavo MG [id number] Memoria 13:33:02 04:59:59 Message r Primary [address] 2019-07-02 2019-07-03 Outpatient MHMG MG [id number] 08:33:02 23:59:59 13 2019-06-06 2019-06-07 Between nullFlavo MHMG [id number] Memoria 23:17:25 23:17:25 Visit r Primary [address] 2019-06-06 2019-06-07 Between nullFlavo MG [id number] Memoria 23:17:25 23:17:25 Visit r Primary [address] 2019-06-06 2019-06-07 Outpatient MHMG MG [id number] 18:17:25 18:17:25 18 2019-06-04 2019-06-05 [place] [id number] Memoria 20:30:00 04:59:59 r Primary [address] 2019-06-04 2019-06-05 [place] [id number] Memoria 20:30:00 04:59:59 r Primary [address] 2019-06-04 2019-06-05 [place] [id number] Memoria 21:18:00 04:59:00 Services r Outpatient 00 l Imaging Rustam [place] 2019-06-04 2019-06-05 [place] [id number] Memoria 21:18:00 04:59:00 Services r Outpatient 00 l Rima Rustam [place] 2019-06-04 2019-06-04 [place] [id number] 15:30:00 23:59:59 Danny Aaron 09 2019-06-04 2019-06-04 Outpatient Mejia, 2.16.840. [id number]. [id number] 16:18:00 23:59:00 Danny Aaron [id number] 5.24 2019-06-04 2019-06-04 Outpatient MHIE MHIE [id number] Memoria 15:30:00 15:30:00 cheryle MylesRustam 2019-04-18 2019-04-19 Between nullFlavo MG [id number] Memoria 19:57:56 19:57:56 Visit r Primary [address] 2019-04-18 2019-04-19 Between nullFlavo MHMG [id number] Memoria 19:57:56 19:57:56 Visit r Primary [address] 2019-04-18 2019-04-19 Outpatient MHMG MHMG [id number] 14:57:56 14:57:56 2019-03-28 2019-03-30 Phone nullFlavo MHMG [id number] Memoria 13:17:54 04:59:59 Message r Primary [address] 2019-03-28 2019-03-30 Phone nullFlavo MHMG [id number] Memoria 13:17:54 04:59:59 Message r Primary [address] 2019-03-28 2019-03-29 Outpatient MHMG MHMG [id number] 08:17:54 23:59:59 12 2019-03-05 2019-03-06 Outpatient nullFlavo MHMG [id number] Memoria 19:30:00 04:59:59 r Primary [address] 2019-03-05 2019-03-06 Outpatient nullFlavo MHMG [id number] Memoria 19:30:00 04:59:59 r Primary [address] 2019-03-05 2019-03-05 Outpatient Nilo, MHMG MHMG [id number] 14:30:00 23:59:59 [place] [address] 2019-03-05 2019-03-05 Outpatient MHIE MHIE [id number] Memoria 14:30:00 14:30:00 08 [facility] 2019-02-08 2019-02-09 [place] [id number] Memoria 18:30:00 04:59:59 r Primary [address] 2019-02-08 2019-02-09 [place] [id number] Memoria 18:30:00 04:59:59 r Primary [address] 2019-02-08 2019-02-08 Outpatient Nilo, MHMG MHMG [id number] 13:30:00 23:59:59 [place] [id number] 2019-02-08 2019-02-08 Outpatient MHIE MHIE [id number] Memoria 13:30:00 13:30:00 07 cheryle [place] 2019-02-06 2019-02-08 Phone nullFlavo MHMG [id number] Memoria 12:58:27 04:59:59 Message r Primary [address] 2019-02-06 2019-02-08 Phone nullFlavo MHMG [id number] Memoria 12:58:27 04:59:59 Message r Primary [address] 2019-02-06 2019-02-07 Outpatient MHMG MHMG [id number] 07:58:27 23:59:59 11 2018-12-06 2018-12-08 Phone nullFlavo MHMG [id number] Memoria 13:15:00 04:59:59 Message r Primary [address] nn 2018-12-06 2018-12-08 Phone nullFlavo MHMG [id number] Memoria 13:15:00 04:59:59 Message r Primary [address] 2018-12-06 2018-12-07 Outpatient MHMG MHMG [id number] 08:15:00 23:59:59 10 2018-06-15 2018-06-17 Phone nullFlavo MHMG [id number] Memoria 18:03:00 04:59:59 Message r Primary [address] nn 2018-06-15 2018-06-17 Phone nullFlavo MHMG [id number] Memoria 18:03:00 04:59:59 Message r Primary [address] 2018-06-15 2018-06-16 Outpatient MHMG MHMG [id number] 13:03:00 23:59:59 09 2018-03-06 2018-03-07 [place] [id number] Memoria 16:30:00 04:59:59 r Primary [address] 2018-03-06 2018-03-07 [place] [id number] Memoria 16:30:00 04:59:59 r Primary [address] 2018-03-06 2018-03-06 Outpatient MADONNA MejiaMG MHMG [id number] 11:30:00 23:59:59 Danny Aaron 2018-03-06 2018-03-06 Outpatient MHIE MHIE [id number] Memoria 11:30:00 11:30:00 06 cheryle Rustam 2018-02-23 2018-02-24 Outpatient nullFlavo MHMG [id number] Memoria 13:00:00 04:59:59 r Primary [address] 2018-02-23 2018-02-24 Outpatient nullFlavo MHMG [id number] Memoria 13:00:00 04:59:59 r Primary [address] 2018-02-23 2018-02-23 Outpatient MADONNA MejiaMG MHMG [id number] 08:00:00 23:59:59 Danny Aaron 05 2018-02-23 2018-02-23 Outpatient MHIE [facility] [id number] Memoria 08:00:00 08:00:00 05 l Rustam 2018-02-13 2018-02-15 Phone nullFlavo [facility] [id number] Memoria 14:10:00 04:59:59 Message r Primary 08 l Bhargav plata 2018-02-13 2018-02-15 Phone nullFlavo [facility] [id number] Memoria 14:10:00 04:59:59 Message r Primary [address] 2018-02-13 2018-02-14 Outpatient [facility] [id number] 09:10:00 23:59:59 08 2018-01-13 2018-01-15 Phone nullFlavo [facility] [id number] Memoria 14:36:00 04:59:59 Message r Primary [address] 2018-01-13 2018-01-15 Phone nullFlavo [facility] [id number] Memoria 14:36:00 04:59:59 Message r Primary [address] 2018-01-13 2018-01-14 Outpatient [facility] [id number] 09:36:00 23:59:59 07 2017-11-25 2017-11-27 Outside nullFlavo [facility] [id number] Memoria 21:44:00 04:59:59 Medical r Primary 06 l Records [facility] [address] 2017-11-25 2017-11-27 Outside nullFlavo [facility] [id number] Memoria 21:44:00 04:59:59 Medical r Primary 06 l Records [facility] [address] 2017-11-25 2017-11-26 Outpatient [facility] [id number] 16:44:00 23:59:59 06 2017-11-24 2017-11-26 Outside nullFlavo [facility] [id number] Memoria 19:18:00 04:59:59 Medical r Primary 05 l Records [facility] [address] 2017-11-24 2017-11-26 Outside nullFlavo [facility] [id number] Memoria 19:18:00 04:59:59 Medical r Primary 05 l Records [facility] [address] 2017-11-24 2017-11-25 Outpatient [facility] [id number] 14:18:00 23:59:59 05 2017-11-23 2017-11-25 Phone nullFlavo [facility] [id number] Memoria 22:02:00 04:59:59 Message r Primary [address] 2017-11-23 2017-11-25 Phone nullFlavo [facility] [id number] Memoria 22:02:00 04:59:59 Message r Primary [address] 2017-11-23 2017-11-24 Outpatient [facility] [id number] 17:02:00 23:59:59 04 2017-11-21 2017-11-22 Outpatient nullFlavo [facility] [id number] Memoria 20:30:00 04:59:59 r Primary [address] 2017-11-21 2017-11-22 Outpatient nullFlavo [facility] [id number] Memoria 20:30:00 04:59:59 r Primary [address] 2017-11-21 2017-11-21 Outpatient Jennifer, MG [facility] [id number] 15:30:00 23:59:59 Osman Isrrael Joey 2017-11-21 2017-11-21 Outpatient [facility] [id number] Memoria 15:30:00 15:30:00 04 cheryle [place] 2017-11-18 2017-11-20 Phone nullFlavo [facility] [id number] Memoria 20:05:00 05:59:59 Message r Primary [address] 2017-11-18 2017-11-20 Phone nullFlavo [facility] [id number] Memoria 20:05:00 05:59:59 Message r Primary [address] 2017-11-18 2017-11-19 Outpatient [facility] [id number] 14:05:00 23:59:59 03 2017-10-11 2017-10-13 Phone [facility] [id number] Memoria 17:27:00 05:59:59 Message r Primary [address] 2017-10-11 2017-10-13 Phone [facility] [id number] Memoria 17:27:00 05:59:59 Message r Primary [address] 2017-10-11 2017-10-12 Outpatient [facility] [id number] 11:27:00 23:59:59 02 2017-09-13 2017-09-15 Phone [facility] [id number] Memoria 13:50:00 05:59:59 Message r Primary [address] nn 2017-09-13 2017-09-15 Phone [facility] [id number] Memoria 13:50:00 05:59:59 Message r Primary [address] [place] 2017-09-13 2017-09-14 Outpatient [facility] [id number] 07:50:00 23:59:59 2017-07-25 2017-07-26 Outpatient [facility] [id number] Memoria 22:00:00 05:59:59 r Primary [address] [place] 2017-07-25 2017-07-26 Outpatient [facility] [id number] Memoria 22:00:00 05:59:59 r Primary [address] [place] 2017-07-25 2017-07-25 Outpatient Jackie, [facility] [id number] 16:00:00 23:59:59 Danny Aaron 03 2017-07-25 2017-07-25 Outpatient [facility] [id number] Memoria 16:00:00 16:00:00 03 cheryle [place] 2017-07-12 2017-07-12 Outpatient [facility] [id number] Memoria 14:15:00 14:15:00 02 cheryle [place] 2017-07-12 2017-07-12 Outpatient [facility] [id number] Memoria 14:15:00 14:15:00 02 cheryle [place] 2016-02-23 2016-02-23 Outpatient [facility] [id number] Memoria 10:15:00 10:15:00 01 cheryle [place]on 2016-02-23 2016-02-23 Outpatient [facility] [id number] Memoria 10:15:00 10:15:00 01 cheryle [place]on 2015-12-24 2015-12-24 Outpatient [facility] [id number] Memoria 13:00:00 13:00:00 00 cheryle [place]on 2015-12-24 2015-12-24 Outpatient [facility] [id number] Memoria 13:00:00 13:00:00 00 l Gloster Results Test Description Test Time Test Comments Results Result Comments Source RADRPT 2023-01-17 13:57:36 Test Item Value Reference Range Interpretation Comme nts RADRPT (test code = RADRPT) PROCEDURE INFORMATION: Exam: MR Cervica l Spine Without Contrast Exam date and time: 01/15/2023 2:37 PM Age: 52 years old Clinical indication: Radiculopathy, cervical region; Additional info: /m54.12 radiculopathy, cervical region TECHNIQUE: Imaging protocol: Magnetic resonance imaging of the cervical spine without contrast. COMPARISON: BRAIN WO CONTRAST MRI 06/07/2020 6:56 AM FINDINGS: Bones/joints: There is reversal of the normal cervical lordosis epi centered at C4-C5 and anterior cervical fusion at C5-C6 without discitis or osteomyelitis.Spinal cord: There is no myleomalacia or cord edema. There is no tonsillar ectopia. The C1/C2 articulation is intact. There is normal flow from both vertebral arteries. C2-C3: No significant disc bulge or herniation. No severe spinal canal stenosis. No significant neural foraminal narrowing. C3-C4: There is a 2.6 mm broadening of the posterior longitudinal ligament and a short pedicle configuration of spinal canal with minimal to moderate spinal stenosis. There is hypertrophic change of uncovertebral joints with severe right and moderate left foraminal stenosis.C4-C5: The disc space is a desiccated and narrowed and there is a 3-4 mm broad base bridging osteophyte/calcification of the posterior longitudinal ligament with a more focal right distal lateral recess/proximal foraminal disc herniation. There is severe right proximal foraminal stenosis and compromise of the exiting C5 nerve root. There is severe spinal stenosis. There is an underlying short pedicle configuration of spinal canal. There is moderate left foraminal stenosis.C5-C6: There is anterior cervical fusion with interbody screws and metallic fixation plate. There is no central or foraminal stenosis.C6-C7: There is hypertrophic change to left uncovertebral joint with minimal foraminal stenosis.C7-T1: No significant disc bulge or herniation. No severe spinal canal stenosis. No significant neural foraminal narrowing. Soft tissues: The prevertbral soft tissues are normal. Vasculature: Expected flow voids in the vertebral arteries. IMPRESSION: C3-C4: There is a 2.6 mm broadening of the posterior longitudinal ligament and a short pedicle configuration of spinal canal with minimal to moderate spinal stenosis. There is hypertrophic change of uncovertebral joints with severe right and moderate left foraminal stenosis.C4-C5: The disc space is a desiccated and narrowed and there is a 3-4 mm broad base bridging osteophyte/calcification of the posterior longitudinal ligament with a more focal right distal lateral recess/proximal foraminal disc herniation. There is severe right proximal foraminal stenosis and compromise of the exiting C5 nerve root. There is severe spinal stenosis. There is an underlying short pedicle configuration of spinal canal. There is moderate left foraminal stenosis.C5-C6: There is anterior cervical fusion with interbody screws and metallic fixation plate. There is no central or foraminal stenosis.Denilson Blake MD On 01/17/2023 08:56:17; [id number] [id number] 13:57:36 Test Item Value Reference Range Interpretation Comments RADRPT (test code = PROCEDURE INFORMATION: RADRPT) Exam: MR Cervical Spine Without Contrast Exam date and time: 01/15/2023 2:37 PM Age: 52 years old Clinical indication: Radiculopathy, cervical region; Additional info: /m54.12 radiculopathy, cervical region TECHNIQUE: Imaging protocol: Magnetic resonance imaging of the cervical spine without contrast. COMPARISON: BRAIN WO CONTRAST MRI 06/07/2020 6:56 AM FINDINGS: Bones/joints: There is reversal of the normal cervical lordosis epi centered at C4-C5 and anterior cervical fusion at C5-C6 without discitis or osteomyelitis.Spinal cord: There is no myleomalacia or cord edema. There is no tonsillar ectopia. The C1/C2 articulation is intact. There is normal flow from both vertebral arteries. C2-C3: No significant disc bulge or herniation. No severe spinal canal stenosis. No significant neural foraminal narrowing. C3-C4: There is a 2.6 mm broadening of the posterior longitudinal ligament and a short pedicle configuration of spinal canal with minimal to moderate spinal stenosis. There is hypertrophic change of uncovertebral joints with severe right and moderate left foraminal stenosis.C4-C5: The disc space is a desiccated and narrowed and there is a 3-4 mm broad base bridging osteophyte/calcification of the posterior longitudinal ligament with a more focal right distal lateral recess/proximal foraminal disc herniation. There is severe right proximal foraminal stenosis and compromise of the exiting C5 nerve root. There is severe spinal stenosis. There is an underlying short pedicle configuration of spinal canal. There is moderate left foraminal stenosis.C5-C6: There is anterior cervical fusion with interbody screws and metallic fixation plate. There is no central or foraminal stenosis.C6-C7: There is hypertrophic change to left uncovertebral joint with minimal foraminal stenosis.C7-T1: No significant disc bulge or herniation. No severe spinal canal stenosis. No significant neural foraminal narrowing. Soft tissues: The prevertbral soft tissues are normal. Vasculature: Expected flow voids in the vertebral arteries. IMPRESSION: C3-C4: There is a 2.6 mm broadening of the posterior longitudinal ligament and a short pedicle configuration of spinal canal with minimal to moderate spinal stenosis. There is hypertrophic change of uncovertebral joints with severe right and moderate left foraminal stenosis.C4-C5: The disc space is a desiccated and narrowed and there is a 3-4 mm broad base bridging osteophyte/calcification of the posterior longitudinal ligament with a more focal right distal lateral recess/proximal foraminal disc herniation. There is severe right proximal foraminal stenosis and compromise of the exiting C5 nerve root. There is severe spinal stenosis. There is an underlying short pedicle configuration of spinal canal. There is moderate left foraminal stenosis.C5-C6: There is anterior cervical fusion with interbody screws and metallic fixation plate. There is no central or foraminal stenosis.Denilson Blake MD On 01/17/2023 08:56:17; [id number] [id number] 16:27:58 Test Item Value Reference Range Interpretation Comments RADRPT (test code = PROCEDURE INFORMATION: RADRPT) Exam: XR Right Shoulder Exam date and time: 01/11/2023 4:13 PM Age: 52 years old Clinical indication: Pain in right shoulder; Additional info: /m25.511 pain in right shoulder TECHNIQUE: Imaging protocol: Radiologic exam of the right shoulder. Views: 2 or more views. AP INT/ EXT ROTATION, SCAPULAR Y COMPARISON: CR CHEST 2 VIEWS DX 08/07/2019 5:01 PM FINDINGS: Bones/joints: No definite acute fracture or dislocation. Soft tissues: Normal. Notes: If there is further concern, follow-up radiographs or MRI of the shoulder may be performed for complete assessment. IMPRESSION: No definite acute fracture or dislocation detected. Dallas Sotelo MD On 01/12/2023 11:26:39; [id number] [facility] [id number] 16:27:58 Test Item Value Reference Range Interpretation Comments RADRPT (test code = PROCEDURE INFORMATION: RADRPT) Exam: XR Right Shoulder Exam date and time: 01/11/2023 4:13 PM Age: 52 years old Clinical indication: Pain in right shoulder; Additional info: /m25.511 pain in right shoulder TECHNIQUE: Imaging protocol: Radiologic exam of the right shoulder. Views: 2 or more views. AP INT/ EXT ROTATION, SCAPULAR Y COMPARISON: CR CHEST 2 VIEWS DX 08/07/2019 5:01 PM FINDINGS: Bones/joints: No definite acute fracture or dislocation. Soft tissues: Normal. Notes: If there is further concern, follow-up radiographs or MRI of the shoulder may be performed for complete assessment. IMPRESSION: No definite acute fracture or dislocation detected. Dallas Sotelo MD On 01/12/2023 11:26:39; [id number] [facility] GLUCOSE (AUTOMATED)2022-08-30 14:07:55 Test Item Value Reference Range Interpretation Comments POCT GLU (test code = 7693251915) 183 mg/dL 70-110 H Lab Interpretation (test code = Abnormal 32240-3) [facility] GLUCOSE (AUTOMATED)2022-08-30 14:07:55 Test Item Value Reference Range Interpretation Comments POCT GLU (test code = 2362213377) 183 mg/dL 70-110 H Lab Interpretation (test code = Abnormal 70840-2) [facility] GLUCOSE (AUTOMATED)2022-08-27 14:46:51 Test Item Value Reference Range Interpretation Comments POCT GLU (test code = 4161799769) 149 mg/dL 70-110 H Lab Interpretation (test code = Abnormal 82251-8) [facility] GLUCOSE (AUTOMATED)2022-08-27 14:46:51 Test Item Value Reference Range Interpretation Comments POCT GLU (test code = 4481558375) 149 mg/dL 70-110 H Lab Interpretation (test code = Abnormal 04772-4) [facility] GLUCOSE (AUTOMATED)2022-08-23 14:55:06 Test Item Value Reference Range Interpretation Comments POCT GLU (test code = 1056228875) 147 mg/dL 70-110 H Lab Interpretation (test code = Abnormal 56801-9) [facility] GLUCOSE (AUTOMATED)2022-08-23 14:55:06 Test Item Value Reference Range Interpretation Comments POCT GLU (test code = 1171614604) 147 mg/dL 70-110 H Lab Interpretation (test code = Abnormal 20294-6) [facility] GLUCOSE (AUTOMATED)2022-08-17 14:57:56 Test Item Value Reference Range Interpretation Comments POCT GLU (test code = 9525573878) 151 mg/dL 70-110 H Lab Interpretation (test code = Abnormal 63908-8) [facility] GLUCOSE (AUTOMATED)2022-08-17 14:57:56 Test Item Value Reference Range Interpretation Comments POCT GLU (test code = 5011311824) 151 mg/dL 70-110 H Lab Interpretation (test code = Abnormal 52021-4) [facility] GLUCOSE (AUTOMATED)2022-08-16 15:03:01 Test Item Value Reference Range Interpretation Comments POCT GLU (test code = 6314992751) 151 mg/dL 70-110 H Lab Interpretation (test code = Abnormal 67736-5) [facility] GLUCOSE (AUTOMATED)2022-08-16 15:03:01 Test Item Value Reference Range Interpretation Comments POCT GLU (test code = 2579396056) 151 mg/dL 70-110 H Lab Interpretation (test code = Abnormal 99934-8) [facility] GLUCOSE (AUTOMATED)2022-08-12 14:55:21 Test Item Value Reference Range Interpretation Comments POCT GLU (test code = 8727006706) 145 mg/dL 70-110 H Lab Interpretation (test code = Abnormal 48861-7) [facility] GLUCOSE (AUTOMATED)2022-08-11 15:00:23 Test Item Value Reference Range Interpretation Comments POCT GLU (test code = 1596661029) 170 mg/dL 70-110 H Lab Interpretation (test code = Abnormal 29331-3) [facility] GLUCOSE (AUTOMATED)2022-08-10 14:45:54 Test Item Value Reference Range Interpretation Comments POCT GLU (test code = 5170438068) 205 mg/dL 70-110 H Lab Interpretation (test code = Abnormal 55457-0) [facility] GLUCOSE (AUTOMATED)2022-08-09 15:02:12 Test Item Value Reference Range Interpretation Comments POCT GLU (test code = 2117027881) 174 mg/dL 70-110 H Lab Interpretation (test code = Abnormal 09621-9) [facility] GLUCOSE (AUTOMATED)2022-08-04 15:10:49 Test Item Value Reference Range Interpretation Comments POCT GLU (test code = 6188457374) 186 mg/dL 70-110 H Lab Interpretation (test code = Abnormal 89088-9) [facility] GLUCOSE (AUTOMATED)2022-08-04 15:10:49 Test Item Value Reference Range Interpretation Comments POCT GLU (test code = 4164880511) 186 mg/dL 70-110 H Lab Interpretation (test code = Abnormal 98570-1) [facility] GLUCOSE (AUTOMATED)2022-08-04 15:10:49 Test Item Value Reference Range Interpretation Comments POCT GLU (test code = 5478555077) 186 mg/dL 70-110 H Lab Interpretation (test code = Abnormal 47075-1) [facility] GLUCOSE (AUTOMATED)2022-08-03 14:22:18 Test Item Value Reference Range Interpretation Comments POCT GLU (test code = 0381678097) 201 mg/dL 70-110 H Lab Interpretation (test code = Abnormal 68424-1) [facility] GLUCOSE (AUTOMATED)2022-08-03 14:22:18 Test Item Value Reference Range Interpretation Comments POCT GLU (test code = 8034668196) 201 mg/dL 70-110 H Lab Interpretation (test code = Abnormal 74470-1) [facility] GLUCOSE (AUTOMATED)2022-08-02 15:01:18 Test Item Value Reference Range Interpretation Comments POCT GLU (test code = 0075708462) 174 mg/dL 70-110 H Lab Interpretation (test code = Abnormal 19315-0) [facility] GLUCOSE (AUTOMATED)2022-08-02 15:01:18 Test Item Value Reference Range Interpretation Comments POCT GLU (test code = 2066267296) 174 mg/dL 70-110 H Lab Interpretation (test code = Abnormal 03627-5) [facility] GLUCOSE (AUTOMATED)2022-07-29 14:09:42 Test Item Value Reference Range Interpretation Comments POCT GLU (test code = 0986142770) 165 mg/dL 70-110 H Lab Interpretation (test code = Abnormal 52598-5) [facility] GLUCOSE (AUTOMATED)2022-07-29 14:09:42 Test Item Value Reference Range Interpretation Comments POCT GLU (test code = 1214377966) 165 mg/dL 70-110 H Lab Interpretation (test code = Abnormal 74924-4) [facility] GLUCOSE (AUTOMATED)2022-07-28 14:53:29 Test Item Value Reference Range Interpretation Comments POCT GLU (test code = 9681142903) 162 mg/dL 70-110 H Lab Interpretation (test code = Abnormal 60239-9) [facility] GLUCOSE (AUTOMATED)2022-07-28 14:53:29 Test Item Value Reference Range Interpretation Comments POCT GLU (test code = 0861831544) 162 mg/dL 70-110 H Lab Interpretation (test code = Abnormal 34585-4) [facility] GLUCOSE (AUTOMATED)2022-07-26 15:02:51 Test Item Value Reference Range Interpretation Comments POCT GLU (test code = 7071460346) 158 mg/dL 70-110 H Lab Interpretation (test code = Abnormal 62136-7) [facility] GLUCOSE (AUTOMATED)2022-07-23 14:56:28 Test Item Value Reference Range Interpretation Comments POCT GLU (test code = 8017823513) 198 mg/dL 70-110 H Lab Interpretation (test code = Abnormal 84532-5) [facility] GLUCOSE (AUTOMATED)2022-07-23 14:56:28 Test Item Value Reference Range Interpretation Comments POCT GLU (test code = 3153692966) 198 mg/dL 70-110 H Lab Interpretation (test code = Abnormal 94011-8) [facility] GLUCOSE (AUTOMATED)2022-07-21 15:01:28 Test Item Value Reference Range Interpretation Comments POCT GLU (test code = 8282746684) 148 mg/dL 70-110 H Lab Interpretation (test code = Abnormal 57166-1) [facility] GLUCOSE (AUTOMATED)2022-07-21 15:01:28 Test Item Value Reference Range Interpretation Comments POCT GLU (test code = 3558626374) 148 mg/dL 70-110 H Lab Interpretation (test code = Abnormal 37034-2) [facility] GLUCOSE (AUTOMATED)2022-07-19 15:08:54 Test Item Value Reference Range Interpretation Comments POCT GLU (test code = 1961385339) 144 mg/dL 70-110 H Lab Interpretation (test code = Abnormal 32058-8) [facility] GLUCOSE (AUTOMATED)2022-07-19 15:08:54 Test Item Value Reference Range Interpretation Comments POCT GLU (test code = 0142668297) 144 mg/dL 70-110 H Lab Interpretation (test code = Abnormal 11103-6) [facility] GLUCOSE (AUTOMATED)2022-07-16 14:55:49 Test Item Value Reference Range Interpretation Comments POCT GLU (test code = 4514802294) 138 mg/dL 70-110 H Lab Interpretation (test code = Abnormal 25266-7) [facility] GLUCOSE (AUTOMATED)2022-07-16 14:55:49 Test Item Value Reference Range Interpretation Comments POCT GLU (test code = 8909845589) 138 mg/dL 70-110 H Lab Interpretation (test code = Abnormal 57022-8) [facility] GLUCOSE (AUTOMATED)2022-07-14 20:45:44 Test Item Value Reference Range Interpretation Comments POCT GLU (test code = 2532764510) 113 mg/dL 70-110 H Lab Interpretation (test code = Abnormal 86362-5) [facility] GLUCOSE (AUTOMATED)2022-07-14 20:45:44 Test Item Value Reference Range Interpretation Comments POCT GLU (test code = 0035553573) 113 mg/dL 70-110 H Lab Interpretation (test code = Abnormal 69065-7) [facility] GLUCOSE (AUTOMATED)2022-07-12 15:45:19 Test Item Value Reference Range Interpretation Comments POCT GLU (test code = 5980064680) 139 mg/dL 70-110 H Lab Interpretation (test code = Abnormal 47038-7) [facility] GLUCOSE (AUTOMATED)2022-07-12 15:45:19 Test Item Value Reference Range Interpretation Comments POCT GLU (test code = 4219843575) 139 mg/dL 70-110 H Lab Interpretation (test code = Abnormal 89416-5) [facility] GLUCOSE (AUTOMATED)2022-07-09 14:01:41 Test Item Value Reference Range Interpretation Comments POCT GLU (test code = 6865110982) 144 mg/dL 70-110 H Lab Interpretation (test code = Abnormal 80526-8) [facility] GLUCOSE (AUTOMATED)2022-07-09 14:01:41 Test Item Value Reference Range Interpretation Comments POCT GLU (test code = 9977272858) 144 mg/dL 70-110 H Lab Interpretation (test code = Abnormal 46551-4) [facility] GLUCOSE (AUTOMATED)2022-07-07 14:04:49 Test Item Value Reference Range Interpretation Comments POCT GLU (test code = 4348084714) 148 mg/dL 70-110 H Lab Interpretation (test code = Abnormal 66997-6) [facility] GLUCOSE (AUTOMATED)2022-07-07 14:04:49 Test Item Value Reference Range Interpretation Comments POCT GLU (test code = 7356459359) 148 mg/dL 70-110 H Lab Interpretation (test code = Abnormal 07107-1) [facility] GLUCOSE (AUTOMATED)2022-07-05 14:28:48 Test Item Value Reference Range Interpretation Comments POCT GLU (test code = 4789225574) 169 mg/dL 70-110 H Lab Interpretation (test code = Abnormal 19536-2) [facility] GLUCOSE (AUTOMATED)2022-07-05 14:28:48 Test Item Value Reference Range Interpretation Comments POCT GLU (test code = 4912646059) 169 mg/dL 70-110 H Lab Interpretation (test code = Abnormal 63257-6) [facility] GLUCOSE (AUTOMATED)2022-06-01 19:54:37 Test Item Value Reference Range Interpretation Comments POCT GLU (test code = 5635699253) 127 mg/dL 70-110 H Lab Interpretation (test code = Abnormal 29902-4) [facility] GLUCOSE (AUTOMATED)2022-06-01 16:55:11 Test Item Value Reference Range Interpretation Comments POCT GLU (test code = 5819871064) 140 mg/dL 70-110 H Lab Interpretation (test code = Abnormal 59476-0) [facility] GLUCOSE (AUTOMATED)2022-06-01 16:55:11 Test Item Value Reference Range Interpretation Comments POCT GLU (test code = 9520317986) 140 mg/dL 70-110 H Lab Interpretation (test code = Abnormal 83631-2) [facility] GLUCOSE (AUTOMATED)2022-06-01 13:48:55 Test Item Value Reference Range Interpretation Comments POCT GLU (test code = 5141451079) 149 mg/dL 70-110 H Lab Interpretation (test code = Abnormal 88545-0) [facility] GLUCOSE (AUTOMATED)2022-06-01 13:48:55 Test Item Value Reference Range Interpretation Comments POCT GLU (test code = 9504190144) 149 mg/dL 70-110 H Lab Interpretation (test code = Abnormal 15095-4) [facility] GLUCOSE (AUTOMATED)2022-06-01 02:26:40 Test Item Value Reference Range Interpretation Comments POCT GLU (test code = 3742707337) 245 mg/dL 70-110 H Lab Interpretation (test code = Abnormal 85354-5) [facility] GLUCOSE (AUTOMATED)2022-06-01 02:26:40 Test Item Value Reference Range Interpretation Comments POCT GLU (test code = 1844306832) 245 mg/dL 70-110 H Lab Interpretation (test code = Abnormal 07547-9) [facility] ACT LOW [id number] 20:21:59 Test Item Value Reference Range Interpretation Comments ACTLR (test code = See_Comment H [Automat ed message] [id number]) The system RIGID generated this result transmitted ref erence range: 89 - 169 Seconds. The reference range was not used to int erpret this result as normal/abnormal . Lab Interpretation (test Abnormal code = 89443-4) [facility] ACT LOW [id number] 20:21:59 Test Item Value Reference Range Interpretation Comments ACTLR (test code = See_Comment H [Automat ed message] [id number]) The system RIGID generated this result transmitted ref erence range: 89 - 169 Seconds. The reference range was not used to int erpret this result as normal/abnormal . Lab Interpretation (test Abnormal code = 98188-6) [facility] ACT LOW [id number] 20:14:25 Test Item Value Reference Range Interpretation Comments ACTLR (test code = See_Comment H [Automat ed message] [id number]) The system RIGID generated this result transmitted ref erence range: 89 - 169 Seconds. The reference range was not used to int erpret this result as normal/abnormal . Lab Interpretation (test Abnormal code = 06370-0) [facility] ACT LOW [id number] 20:14:25 Test Item Value Reference Range Interpretation Comments ACTLR (test code = See_Comment H [Automat ed message] [id number]) The system RIGID generated this result transmitted ref erence range: 89 - 169 Seconds. The reference range was not used to int erpret this result as normal/abnormal . Lab Interpretation (test Abnormal code = 16913-8) [facility] GLUCOSE (AUTOMATED)2022-05-31 16:44:13 Test Item Value Reference Range Interpretation Comments POCT GLU (test code = 2774655752) 122 mg/dL 70-110 H Lab Interpretation (test code = Abnormal 14292-3) [facility] GLUCOSE (AUTOMATED)2022-05-31 16:44:13 Test Item Value Reference Range Interpretation Comments POCT GLU (test code = 5794367309) 122 mg/dL 70-110 H Lab Interpretation (test code = Abnormal 07585-7) [facility] GLUCOSE (AUTOMATED)2022-05-31 12:53:38 Test Item Value Reference Range Interpretation Comments POCT GLU (test code = 6728112752) 149 mg/dL 70-110 H Lab Interpretation (test code = Abnormal 27238-6) [facility] GLUCOSE (AUTOMATED)2022-05-31 12:53:38 Test Item Value Reference Range Interpretation Comments POCT GLU (test code = 9063255782) 149 mg/dL 70-110 H Lab Interpretation (test code = Abnormal 49969-4) [facility] GLUCOSE (AUTOMATED)2022-05-31 02:07:24 Test Item Value Reference Range Interpretation Comments POCT GLU (test code = 4012270766) 249 mg/dL 70-110 H Lab Interpretation (test code = Abnormal 08555-9) [facility] 02:07:24 Test Item Value Reference Range Interpretation Comments POCT GLU (test code = 5348581106) 249 mg/dL 70-110 H Lab Interpretation (test code = Abnormal 03854-3) [facility] 22:49:02 Test Item Value Reference Range Interpretation Comments POCT GLU (test code = 0578888271) 216 mg/dL 70-110 H Lab Interpretation (test code = Abnormal 40090-2) [facility] 22:49:02 Test Item Value Reference Range Interpretation Comments POCT GLU (test code = 3952335903) 216 mg/dL 70-110 H Lab Interpretation (test code = Abnormal 95333-6) [facility] GLUCOSE (AUTOMATED)2022-05-30 17:45:21 Test Item Value Reference Range Interpretation Comments POCT GLU (test code = 2408562227) 287 mg/dL 70-110 H Lab Interpretation (test code = Abnormal 26315-7) [facility] GLUCOSE (AUTOMATED)2022-05-30 17:45:21 Test Item Value Reference Range Interpretation Comments POCT GLU (test code = 4811115137) 287 mg/dL 70-110 H Lab Interpretation (test code = Abnormal 66736-1) [facility] GLUCOSE (AUTOMATED)2022-05-30 14:09:34 Test Item Value Reference Range Interpretation Comments POCT GLU (test code = 7021290012) 148 mg/dL 70-110 H Lab Interpretation (test code = Abnormal 57434-7) [facility] GLUCOSE (AUTOMATED)2022-05-30 14:09:34 Test Item Value Reference Range Interpretation Comments POCT GLU (test code = 0986311776) 148 mg/dL 70-110 H Lab Interpretation (test code = Abnormal 18510-5) [facility] 02:19:47 Test Item Value Reference Range Interpretation Comments POCT GLU (test code = 6918268484) 174 mg/dL 70-110 H Lab Interpretation (test code = Abnormal 37245-3) [facility] GLUCOSE (AUTOMATED)2022-05-30 02:19:47 Test Item Value Reference Range Interpretation Comments POCT GLU (test code = 3284226846) 174 mg/dL 70-110 H Lab Interpretation (test code = Abnormal 48286-3) [facility] GLUCOSE (AUTOMATED)2022-05-29 23:37:49 Test Item Value Reference Range Interpretation Comments POCT GLU (test code = 2427211978) 219 mg/dL 70-110 H Lab Interpretation (test code = Abnormal 95798-8) [facility] GLUCOSE (AUTOMATED)2022-05-29 23:37:49 Test Item Value Reference Range Interpretation Comments POCT GLU (test code = 9065029509) 219 mg/dL 70-110 H Lab Interpretation (test code = Abnormal 80758-7) [facility] GLUCOSE (AUTOMATED)2022-05-29 18:23:57 Test Item Value Reference Range Interpretation Comments POCT GLU (test code = 1793448410) 150 mg/dL 70-110 H Lab Interpretation (test code = Abnormal 90383-7) [facility] GLUCOSE (AUTOMATED)2022-05-29 18:23:57 Test Item Value Reference Range Interpretation Comments POCT GLU (test code = 0599449389) 150 mg/dL 70-110 H Lab Interpretation (test code = Abnormal 66803-0) [facility] 14:51:30 Test Item Value Reference Range Interpretation Comments Height (test code = in 5455593956) Weight (test code = lbs 0258578917) Systolic BP (test code = mmHg 3752811493) Diastolic BP (test code mmHg = 0380845970) Heart Rate (test code = bpm 8283817770) BSA (test code = 2.13 m2 9878107486) Ao root annulus (test 2.9 cm code = 1785075282) Ao root diam (test code 2.90 cm = 8486205155) Aortic root (test code = 2.9 cm 3333508977) LVOT diameter (test code 1.87 cm = 8940638258) LVOT area (test code = 2.80 cm2 2637338815) LVIDD (test code = 5.30 cm 3575101978) Left Ventricular End 133.6 mL Diastolic Volume by Teichholz Method (test code = 7638725) IVS (test code = 1.19 cm 5164605079) Interventricular Septum 1.19 cm Diastolic Thickness by 2D (test code = 0682810) LVPWD (test code = 1.19 cm 4408230999) PW (test code = 1.19 cm 0.6-1.5 0010344029) EF(Teich) (test code = 60.10 % 3174607808) LVIDS (test code = 3.60 cm 5803399975) Left Ventricular End 53.3 mL Systolic Volume by Teichholz Method (test code = 9152637) FS (test code = 32 % 5301475297) EF - 2D (test code = 60.10 % 55108182) LA size (test code = 3.6 cm 8479280259) LAV(MOD-sp4) (test code 65.20 mL = 7247569376) MV stenosis pressure 1/2 55.9 ms time (test code = 2393874336) MV Peak E Shayna (test code 95.1 cm/s = 6572970995) E wave decelartion time 0.19 s (test code = 1423113040) MV Peak A Shayna (test code 112.9 cm/s = 7706132339) E/A ratio (test code = ratio 6581980755) MV Prop V (test code = 42.10 cm/s 3432003616) MV E/e' septal (test 12.0 cm/s code = 6862200815) Tapse (test code = 1.96 cm 0971924388) LVOT stroke volume (test 65.20 cm3 code = 7191294536) LVOT peak shayna (test code 117.0 cm/s = 5486892918) LVOT mn grad (test code mmHg = 2997141456) AV LVOT peak gradient mmHg (test code = 2321694657) LVOT peak VTI (test code 23.7 cm = 7740512625) LV V1 mean (test code = 81.20 cm/s 6046792269) Aortic valve mean 108.0 cm/s velocity (test code = 6067500927) Ao peak shayna (test code = 148.9 cm/s 0140248840) Ao VTI (test code = 29.3 cm 0154902815) AV area by cont VTI 2.2 cm2 (test code = 8338921393) AV area peak shayna (test 2.2 cm2 code = 4365202590) Ao max PG (test code = 8.90 mm[Hg] 9349292539) AV peak gradient (test mmHg code = 6384474309) AV valve area (test code 2.23 cm2 = 6788631932) AV mean gradient (test mmHg code = 5539921442) Radiology Study observation (narrative) (test code = 89449-2) BECKY (test code = BECKY) ?Left?Ventricle: Left ventricle size is normal. Normal wall thickness. Normal wall motion. Normal systolic function with a visually estimated EF of 55 - 60%. There is impaired relaxation. ?Tricuspid?Valve: Trace transvalvular regurgitation. Insufficient regurgant jet to estimate RVSP. ?RA pressure is 0-5 mmHg. ?Right?Ventricle: Normal systolic function. Left VentricleLeft ventricle size is normal. Normal wall thickness. Normal wall motion. Normal systolic function with a visually estimated EF of 55 - 60%. There is impaired relaxation.Right VentricleRight ventricle size is normal. Normal systolic function.Left AtriumLeft atrium size is normal.Right AtriumRight atrium size is normal.IVC/SVCRA pressure is 0-5 mmHg.Mitral ValveMitral valve structure is normal. Trace transvalvular regurgitation.Tricusp id ValveTricuspid valve structure is grossly normal. Trace transvalvular regurgitation. Insufficient regurgant jet to estimate RVSP. RA pressure is 0-5 mmHg.Aortic ValveAortic valve opens well.Pulmonic ValveNot well visualized.Ascending AortaAnnulus and sinus of Valsalva is normal in size.PericardiumNo pericardial effusion.Study DetailsStudy quality was adequate. A complete echocardiogram was performed using 2D, color flow Doppler and spectral Doppler. [facility] 14:51:30 Test Item Value Reference Range Interpretation Comments Height (test code = in 8537149964) Weight (test code = lbs 8392318637) Systolic BP (test code = mmHg 0279037099) Diastolic BP (test code mmHg = 8358074857) Heart Rate (test code = bpm 6194139206) BSA (test code = 2.13 m2 4084787488) Ao root annulus (test 2.9 cm code = 3217965892) Ao root diam (test code 2.90 cm = 4216992052) Aortic root (test code = 2.9 cm 7777002096) LVOT diameter (test code 1.87 cm = 8058125034) LVOT area (test code = 2.80 cm2 4818638306) LVIDD (test code = 5.30 cm 5020247304) Left Ventricular End 133.6 mL Diastolic Volume by Teichholz Method (test code = 6197317) IVS (test code = 1.19 cm 4108982528) Interventricular Septum 1.19 cm Diastolic Thickness by 2D (test code = 6020294) LVPWD (test code = 1.19 cm 4490941148) PW (test code = 1.19 cm 0.6-1.4 2623094532) EF(Teich) (test code = 60.10 % 7233951864) LVIDS (test code = 3.60 cm 4658372038) Left Ventricular End 53.3 mL Systolic Volume by Teichholz Method (test code = 3953484) FS (test code = 32 % 4226926373) EF - 2D (test code = 60.10 % 37079505) LA size (test code = 3.6 cm 7510477235) LAV(MOD-sp4) (test code 65.20 mL = 4754773648) MV stenosis pressure 1/2 55.9 ms time (test code = 1700607922) MV Peak E Shayna (test code 95.1 cm/s = 2160848231) E wave decelartion time 0.19 s (test code = 5696507887) MV Peak A Shayna (test code 112.9 cm/s = 1177449779) E/A ratio (test code = ratio 1377870765) MV Prop V (test code = 42.10 cm/s 9962145491) MV E/e' septal (test 12.0 cm/s code = 4652945214) Tapse (test code = 1.96 cm 8566462340) LVOT stroke volume (test 65.20 cm3 code = 1004728002) LVOT peak shayna (test code 117.0 cm/s = 7459898561) LVOT mn grad (test code mmHg = 4345822262) AV LVOT peak gradient mmHg (test code = 6563654823) LVOT peak VTI (test code 23.7 cm = 6357329196) LV V1 mean (test code = 81.20 cm/s 2736319357) Aortic valve mean 108.0 cm/s velocity (test code = 3892913329) Ao peak shayna (test code = 148.9 cm/s 2457456072) Ao VTI (test code = 29.3 cm 1688307321) AV area by cont VTI 2.2 cm2 (test code = 7717411028) AV area peak shayna (test 2.2 cm2 code = 0817297929) Ao max PG (test code = 8.90 mm[Hg] 8036775784) AV peak gradient (test mmHg code = 6717569363) AV valve area (test code 2.23 cm2 = 5078923597) AV mean gradient (test mmHg code = 9860924470) Radiology Study observation (narrative) (test code = 65522-0) BECKY (test code = BECKY) ?Left?Ventricle: Left ventricle size is normal. Normal wall thickness. Normal wall motion. Normal systolic function with a visually estimated EF of 55 - 60%. There is impaired relaxation. ?Tricuspid?Valve: Trace transvalvular regurgitation. Insufficient regurgant jet to estimate RVSP. ?RA pressure is 0-5 mmHg. ?Right?Ventricle: Normal systolic function. Left VentricleLeft ventricle size is normal. Normal wall thickness. Normal wall motion. Normal systolic function with a visually estimated EF of 55 - 60%. There is impaired relaxation.Right VentricleRight ventricle size is normal. Normal systolic function.Left AtriumLeft atrium size is normal.Right AtriumRight atrium size is normal.IVC/SVCRA pressure is 0-5 mmHg.Mitral ValveMitral valve structure is normal. Trace transvalvular regurgitation.Tricusp id ValveTricuspid valve structure is grossly normal. Trace transvalvular regurgitation. Insufficient regurgant jet to estimate RVSP. RA pressure is 0-5 mmHg.Aortic ValveAortic valve opens well.Pulmonic ValveNot well visualized.Ascending AortaAnnulus and sinus of Valsalva is normal in size.PericardiumNo pericardial effusion.Study DetailsStudy quality was adequate. A complete echocardiogram was performed using 2D, color flow Doppler and spectral Doppler. [facility] GLUCOSE (AUTOMATED)2022-05-29 13:48:56 Test Item Value Reference Range Interpretation Comments POCT GLU (test code = 0089018442) 139 mg/dL 70-110 H Lab Interpretation (test code = Abnormal 22842-8) [facility] GLUCOSE (AUTOMATED)2022-05-29 13:48:56 Test Item Value Reference Range Interpretation Comments POCT GLU (test code = 8018132931) 139 mg/dL 70-110 H Lab Interpretation (test code = Abnormal 30818-0) [facility] (for use with Heparin Infusion)2022-05-29 07:23:47 Test Item Value Reference Range Interpretation Comments APTT Patient (test code See_Comment H [Au tomated message] = 3173-2) The system [employer]IG[employer] generated this result transmitted ref erence range: 26 - 36 Seconds. The reference range was not used to int erpret this result as normal/abnormal . Lab Interpretation (test Abnormal code = 10765-1) [facility] (for use with Heparin Infusion)2022-05-29 07:23:47 Test Item Value Reference Range Interpretation Comments APTT Patient (test code See_Comment H [Au tomated message] = 3173-2) The system [employer] generated this result transmitted ref erence range: 26 - 36 Seconds. The reference range was not used to int erpret this result as normal/abnormal . Lab Interpretation (test Abnormal code = 78623-9) [facility] GLUCOSE (AUTOMATED)2022-05-29 01:12:19 Test Item Value Reference Range Interpretation Comments POCT GLU (test code = 2114315948) 187 mg/dL 70-110 H Lab Interpretation (test code = Abnormal 10153-7) [facility] GLUCOSE (AUTOMATED)2022-05-29 01:12:19 Test Item Value Reference Range Interpretation Comments POCT GLU (test code = 0538058940) 187 mg/dL 70-110 H Lab Interpretation (test code = Abnormal 29910-6) [facility] CONSULT [id number] 23:13:41 ABSOLUTE NEUTROPHILIA. NO BLASTS IDENTIFIED. MICROCYTIC NORMOCHROMIC ERYTHROCYTES. PLATELETS ARE UNREMARKABLE.[facility] CONSULT [id number] 23:13:41ABSOLUTE NEUTROPHILIA. NO BLASTS IDENTIFIED. MICROCYTIC NORMOCHROMIC ERYTHROCYTES. PLATELETS ARE UNREMARKABLE. [facility] 22:20:56 Test Item Value Reference Range Interpretation Comments APTT Patient (test See_Comment H [Automat ed code = 3173-2) message] The system which generated this result transmitted reference range : 23 - 38 Seconds . The reference range was not used to interpr et this result as normal/abnormal . BECKY (test code = BECKY) The [facility] patient population mean normal value for aPTT is 30 seconds. Lab Interpretation Abnormal (test code = 96065-5) [facility] 22:20:56 Test Item Value Reference Range Interpretation Comments APTT Patient (test See_Comment H [Automat ed code = 3173-2) message] The system which generated this result transmitted reference range : 23 - 38 Seconds . The reference range was not used to interpr et this result as normal/abnormal . BECKY (test code = BECKY) The [facility] patient population mean normal value for aPTT is 30 seconds. Lab Interpretation Abnormal (test code = 02329-8) [facility], [id number] 18:45:58 Test Item Value Reference Range Interpretation Comments VIT B12 (test code = 461 pg/mL 240-930 6840743924) BECKY (test code = BECKY) Biotin has been reported to cause a positive bias, interpret results relative to patient's use of biotin. Lab Interpretation (test Normal code = 19518-0) [facility], [id number] 18:45:58 Test Item Value Reference Range Interpretation Comments VIT B12 (test code = 461 pg/mL 240-930 8069257395) BECKY (test code = BECKY) Biotin has been reported to cause a positive bias, interpret results relative to patient's use of biotin. Lab Interpretation (test Normal code = 20074-2) [facility] [id number] 18:35:53 Test Item Value Reference Interpretation Comments Range TROPONIN I (test 0.026 ng/mL See_Comment [Automated code = 3860525865) message] The system which generated this result transmitted reference range : <=0.034. The reference range was not used to interpret this result as normal/abnormal . BECKY (test code = Reference (Normal) BECKY) Range (defined by the 99th percentile reference limit): <= 0.034 ng/mL Note: Cardiac troponin begins to rise 3-4 hours after the onset of ischemia. Repeat in 4-6 hours if the sample was drawn within 3-4 hours of the onset of the symptom and found normal. Diagnosis of myocardial injury is made with acute changes in cTn concentrations with at least one serial sample above the 99th percentile upper reference limit (URL), taken together with the patient's clinical presentation. Biotin has been reported to cause a negative bias, interpret results relative to patient's use of biotin. Lab Interpretation Normal (test code = 79976-0) [facility] [id number] 18:35:53 Test Item Value Reference Interpretation Comments Range TROPONIN I (test 0.026 ng/mL See_Comment [Automated code = 7963441470) message] The system which generated this result transmitted reference range : <=0.034. The reference range was not used to interpret this result as normal/abnormal . BECKY (test code = Reference (Normal) BECKY) Range (defined by the 99th percentile reference limit): <= 0.034 ng/mL Note: Cardiac troponin begins to rise 3-4 hours after the onset of ischemia. Repeat in 4-6 hours if the sample was drawn within 3-4 hours of the onset of the symptom and found normal. Diagnosis of myocardial injury is made with acute changes in cTn concentrations with at least one serial sample above the 99th percentile upper reference limit (URL), taken together with the patient's clinical presentation. Biotin has been reported to cause a negative bias, interpret results relative to patient's use of biotin. Lab Interpretation Normal (test code = 94529-6) [facility] 15:50:31 Test Item Value Reference Range Interpretation Comments APTT Patient (test See_Comment [Automat ed code = 3173-2) message] The system which generated this result transmitted reference range : 23 - 38 Seconds . The reference range was not used to interpr et this result as normal/abnormal . BECKY (test code = BECKY) The [facility] patient population mean normal value for aPTT is 30 seconds. Lab Interpretation Normal (test code = 23132-5) [facility] 15:50:31 Test Item Value Reference Range Interpretation Comments APTT Patient (test See_Comment [Automat ed code = 3173-2) message] The system which generated this result transmitted reference range : 23 - 38 Seconds . The reference range was not used to interpr et this result as normal/abnormal . BECKY (test code = BECKY) The [facility] patient population mean normal value for aPTT is 30 seconds. Lab Interpretation Normal (test code = 92877-7) [facility] ([facility] / [id number] 15:48:28 Test Item Value Reference Range Interpretation Comments PROTIME PATIENT (test See_Comment [Auto mated message] code = 5964-2) The system [employer] generated this result transmitted ref erence range: 12.0 - 1 4.7 Seconds. The re ference range was not u sed to interpret this result as normal/abnor mal. INR (test code = 6301-6) Nor mal INR <1.1; Warfarin Therap eutic range 2.0 to 3. 0 or 2.5 to 3.5, dep ending upon the indica tions. Lab Interpretation (test Normal code = 36751-8) [facility] ([facility] / [id number] 15:48:28 Test Item Value Reference Range Interpretation Comments PROTIME PATIENT (test See_Comment [Auto mated message] code = 5964-2) The system [employer] generated this result transmitted ref erence range: 12.0 - 1 4.7 Seconds. The re ference range was not u sed to interpret this result as normal/abnor mal. INR (test code = 6301-6) Nor mal INR <1.1; Warfarin Therap eutic range 2.0 to 3. 0 or 2.5 to 3.5, dep ending upon the indica tions. Lab Interpretation (test Normal code = 90334-4) [facility] [id number] 14:27:01 Test Item Value Reference Interpretation Comments Range TROPONIN I (test 0.040 ng/mL See_Comment H [Automated code = 4926420572) message] The system which generated this result transmitted reference range : <=0.034. The reference range was not used to interpret this result as normal/abnormal . BECKY (test code = Reference (Normal) BECKY) Range (defined by the 99th percentile reference limit): <= 0.034 ng/mL Note: Cardiac troponin begins to rise 3-4 hours after the onset of ischemia. Repeat in 4-6 hours if the sample was drawn within 3-4 hours of the onset of the symptom and found normal. Diagnosis of myocardial injury is made with acute changes in cTn concentrations with at least one serial sample above the 99th percentile upper reference limit (URL), taken together with the patient's clinical presentation. Biotin has been reported to cause a negative bias, interpret results relative to patient's use of biotin. Lab Interpretation Abnormal (test code = 88272-5) [facility] [id number] 14:27:01 Test Item Value Reference Interpretation Comments Range TROPONIN I (test 0.040 ng/mL See_Comment H [Automated code = 2801665521) message] The system which generated this result transmitted reference range : <=0.034. The reference range was not used to interpret this result as normal/abnormal . BECKY (test code = Reference (Normal) BECKY) Range (defined by the 99th percentile reference limit): <= 0.034 ng/mL Note: Cardiac troponin begins to rise 3-4 hours after the onset of ischemia. Repeat in 4-6 hours if the sample was drawn within 3-4 hours of the onset of the symptom and found normal. Diagnosis of myocardial injury is made with acute changes in cTn concentrations with at least one serial sample above the 99th percentile upper reference limit (URL), taken together with the patient's clinical presentation. Biotin has been reported to cause a negative bias, interpret results relative to patient's use of biotin. Lab Interpretation Abnormal (test code = 28273-7) [facility], [id number] 14:05:45 Test Item Value Reference Range Interpretation Comments VIT D 25OH (test code = 25-80 L 83256-9) BECKY (test code = BECKY) Deficiency: <20 ng/mLInsufficiency: 20-24 ng/mLOptimal: 25-80 ng/mL Lab Interpretation (test Abnormal code = 73163-6) [facility], [id number] 14:05:45 Test Item Value Reference Range Interpretation Comments VIT D 25OH (test code = 25-80 L 38317-3) BECKY (test code = BECKY) Deficiency: <20 ng/mLInsufficiency: 20-24 ng/mLOptimal: 25-80 ng/mL Lab Interpretation (test Abnormal code = 03792-4) [facility]2022-[facility]-16 11:51:43 Test Item Value Reference Interpretation Comments Range Procalcitonin (test 0.03 ng/mL See_Comment [Automa sin code = 0390888247) message] The system which generated this result transmitted reference range: <=0.07. The reference range was not used to interpret this result as normal/abnormal . BECKY (test code = INTERPRETATION OF BECKY) PROCALCITONIN RESULTS IN ADULTS >= 18 YEARS OF AGE Initiation and discontinuation of antibiotics on patients with suspected or confirmed Lower Respiratory Tract Infection in Adults >= 18 years of age. + +------ + ----+ +|Procalcit onin |Interpretation ?|Antibiotic ? ? |Considerations ? |ng/mL ? | ?|recommendation | ? + +------ + ----+ +| <0.1 ? | Bacterial ? ? ?| Strongly ? ? ?| ? | ?| infection very | discouraged ? | Overruling: ? | ?| unlikely ? ? ? | ? | ? Clinically unstable ? ? ? + +------ + ----+ ? High risk for adverse ? ? | <0.25 ?| Bacterial ? ? ?| Discouraged ? | ? outcome ? | ?| infection ? ? ?| ? | ? SEE IMPORTANT NOTE ?| ?| unlikely ? ? ? | ? | ? + +------ + ----+ +| >=0.25 ? ? ? | Bacterial ? ? ?| Encouraged ? ?| ? | ?| infection ? ? ?| ? | ? | ?| likely ? | ? | Consider treatment failure ?+ +----- + -----+ if levels does not decrease | >0.5 ? | Bacterial ? ? ?| Strongly ? ? ?| appropriately ? | ?| infection very | encouraged ? ?| ? | ?| likely ? | ? | ? + +------ + ----+ + Discontinuation of antibiotics in high-acuity patients with suspected or confirmed sepsis in Adults >= 18 years of age. + +------ + ----+ +|Procalcit onin |Interpretation ?|Antibiotic ? ? |Considerations ? |ng/mL ? | ?|recommendation | ? + +------ + ----+ +| <0.25 ?| Bacterial ? ? ?| Strongly ? ? ?| ? | ?| infection very | discouraged ? | Overruling: ? | ?| unlikely ? ? ? | ? | ? Clinically unstable ? ? ? + +------ + ----+ ? High risk for adverse ? ? | <0.5 or drop | Bacterial ? ? ?| Discouraged ? | ? outcome ? | >80% from ? ?| infection ? ? ?| ? | ? SEE IMPORTANT NOTE ?| highest PCT ?| unlikely ? ? ? | ? | ? | level ?| ?| ? | ? + +------ + ----+ +| >=0.5 ?| Bacterial ? ? ?| Encouraged ? ?| ? | ?| infection ? ? ?| ? | ? | ?| likely ? | ? | Consider treatment failure ?+ +----- + -----+ if levels does not decrease | >1.0 ? | Bacterial ? ? ?| Strongly ? ? ?| appropriately ? | ?| infection very | encouraged ? ?| ? | ?| likely ? | ? | ? + +------ + ----+ + Percentage of drop of Procalcitonin calculation for Discontinuation of antibiotics in high-acuity patients with suspected or confirmed sepsis in Adults >= 18 years of age. ? Procalcitonin highest{}-Procalcitoni n current{}Delta Procalcitonin = ___ x100% ? Procalcitonin current {} IMPORTANT NOTE: Procalcitonin may be elevated without bacterial infection by physiologic stress related to trauma, montero, chronic dialysis, metastatic cancer, surgery in the past seven days, malaria, some fungal infections, and some forms of vasculitis. The interpretation algorithm may not apply to patients with immunosuppression (equivalent of >10 mg of prednisone daily), HIV with CD4 cell count < 350 cells/mm3, active malignancy on systemic chemotherapy, solid organ transplant or hematopoietic stem cell transplantation, or hospital acquired pneumonia. Additionally, some clinical trials of procalcitonin have excluded patients with shock requiring vasopressor use, acute respiratory failure requiring mechanical ventilation, or those with known lung abscess/empyema. For further information please refer to:[email or web address] p Lab Interpretation Normal (test code = 52807-6) [facility] 11:51:43 Test Item Value Reference Interpretation Comments Range Procalcitonin (test 0.03 ng/mL See_Comment [Automa sin code = 6826700350) message] The system which generated this result transmitted reference range: <=0.07. The reference range was not used to interpret this result as normal/abnormal . BECKY (test code = INTERPRETATION OF BECKY) PROCALCITONIN RESULTS IN ADULTS >= 18 YEARS OF AGE Initiation and discontinuation of antibiotics on patients with suspected or confirmed Lower Respiratory Tract Infection in Adults >= 18 years of age. + +------ + ----+ +|Procalcit onin |Interpretation ?|Antibiotic ? ? |Considerations ? |ng/mL ? | ?|recommendation | ? + +------ + ----+ +| <0.1 ? | Bacterial ? ? ?| Strongly ? ? ?| ? | ?| infection very | discouraged ? | Overruling: ? | ?| unlikely ? ? ? | ? | ? Clinically unstable ? ? ? + +------ + ----+ ? High risk for adverse ? ? | <0.25 ?| Bacterial ? ? ?| Discouraged ? | ? outcome ? | ?| infection ? ? ?| ? | ? SEE IMPORTANT NOTE ?| ?| unlikely ? ? ? | ? | ? + +------ + ----+ +| >=0.25 ? ? ? | Bacterial ? ? ?| Encouraged ? ?| ? | ?| infection ? ? ?| ? | ? | ?| likely ? | ? | Consider treatment failure ?+ +----- + -----+ if levels does not decrease | >0.5 ? | Bacterial ? ? ?| Strongly ? ? ?| appropriately ? | ?| infection very | encouraged ? ?| ? | ?| likely ? | ? | ? + +------ + ----+ + Discontinuation of antibiotics in high-acuity patients with suspected or confirmed sepsis in Adults >= 18 years of age. + +------ + ----+ +|Procalcit onin |Interpretation ?|Antibiotic ? ? |Considerations ? |ng/mL ? | ?|recommendation | ? + +------ + ----+ +| <0.25 ?| Bacterial ? ? ?| Strongly ? ? ?| ? | ?| infection very | discouraged ? | Overruling: ? | ?| unlikely ? ? ? | ? | ? Clinically unstable ? ? ? + +------ + ----+ ? High risk for adverse ? ? | <0.5 or drop | Bacterial ? ? ?| Discouraged ? | ? outcome ? | >80% from ? ?| infection ? ? ?| ? | ? SEE IMPORTANT NOTE ?| highest PCT ?| unlikely ? ? ? | ? | ? | level ?| ?| ? | ? + +------ + ----+ +| >=0.5 ?| Bacterial ? ? ?| Encouraged ? ?| ? | ?| infection ? ? ?| ? | ? | ?| likely ? | ? | Consider treatment failure ?+ +----- + -----+ if levels does not decrease | >1.0 ? | Bacterial ? ? ?| Strongly ? ? ?| appropriately ? | ?| infection very | encouraged ? ?| ? | ?| likely ? | ? | ? + +------ + ----+ + Percentage of drop of Procalcitonin calculation for Discontinuation of antibiotics in high-acuity patients with suspected or confirmed sepsis in Adults >= 18 years of age. ? Procalcitonin highest{}-Procalcitoni n current{}Delta Procalcitonin = ___ x100% ? Procalcitonin current {} IMPORTANT NOTE: Procalcitonin may be elevated without bacterial infection by physiologic stress related to trauma, montero, chronic dialysis, metastatic cancer, surgery in the past seven days, malaria, some fungal infections, and some forms of vasculitis. The interpretation algorithm may not apply to patients with immunosuppression (equivalent of >10 mg of prednisone daily), HIV with CD4 cell count < 350 cells/mm3, active malignancy on systemic chemotherapy, solid organ transplant or hematopoietic stem cell transplantation, or hospital acquired pneumonia. Additionally, some clinical trials of procalcitonin have excluded patients with shock requiring vasopressor use, acute respiratory failure requiring mechanical ventilation, or those with known lung abscess/empyema. For further information please refer to:[email or web address] Lab Interpretation Normal (test code = 16723-6) [facility]2022-09-16 06:23:07 Test Item Value Reference Range Interpretation Comments IRON (test code = 5151947906) 33 ug/dL 50-160 L TIBC (test code = 5098000745) 455 ug/dL 250-410 H % FE SAT (test code = 2861796366) 7 % 20-50 L Lab Interpretation (test code = Abnormal 53227-4) [facility]N [id number] 06:23:07 Test Item Value Reference Range Interpretation Comments IRON (test code = 9862862780) 33 ug/dL 50-160 L TIBC (test code = 4906433587) 455 ug/dL 250-410 H % FE SAT (test code = 6427020697) 7 % 20-50 L Lab Interpretation (test code = Abnormal 18574-9) [facility] [id number] 06:16:26 Test Item Value Reference Range Interpretation Comments FERRITIN (test code = 7.5 ng/mL 11-264 L 6591451825) BECKY (test code = BECKY) Biotin has been reported to cause a negative bias, interpret results relative to patient's use of biotin. Lab Interpretation (test Abnormal code = 36338-0) [facility] [id number] 06:16:26 Test Item Value Reference Range Interpretation Comments FERRITIN (test code = 7.5 ng/mL 11-264 L 6662868807) BECKY (test code = BECKY) Biotin has been reported to cause a negative bias, interpret results relative to patient's use of biotin. Lab Interpretation (test Abnormal code = 86625-7) [facility] CenterTHY[facility] STIMULATING [id number] 06:12:28 Test Item Value Reference Range Interpretation Comments TSH (test code = See_Comment [Automated message] [id number]) The system RIGID generated this result transmitted ref erence range: 0.45 - 4 .70 mIU/L. The refe rence range was not u sed to interpret this result as normal/abnor mal. Lab Interpretation (test Normal code = 55201-4) [facility] CenterTH[facility] [id number] 06:12:28 Test Item Value Reference Range Interpretation Comments TSH (test code = See_Comment [Automated message] 2037040832) The system RIG[employer] generated this result transmitted ref erence range: 0.45 - 4 .70 mIU/L. The refe rence range was not u sed to interpret this result as normal/abnor mal. Lab Interpretation (test Normal code = 07152-7) [facility]2022-09-16 06:10:11 Test Item Value Reference Range Interpretation Comments ESR (test code = See_Comment H [Automated message] 84594-8) The system RIG[employer] generated this result transmitted ref erence range: 0 - 20 m m/HR. The reference r neli was not used to interpret this result as normal/abnor mal. Lab Interpretation (test Abnormal code = 96418-0) [facility] [id number] 06:10:11 Test Item Value Reference Range Interpretation Comments ESR (test code = See_Comment H [Automated message] 91900-7) The system RIGID generated this result transmitted ref erence range: 0 - 20 m m/HR. The reference r neli was not used to interpret this result as normal/abnor mal. Lab Interpretation (test Abnormal code = 52856-9) [facility] [id number] 05:53:48 Test Item Value Reference Interpretation Comments Range TROPONIN I (test 0.042 ng/mL See_Comment H [Automated code = 9434322106) message] The system which generated this result transmitted reference range : <=0.034. The reference range was not used to interpret this result as normal/abnormal . BECKY (test code = Reference (Normal) BECKY) Range (defined by the 99th percentile reference limit): <= 0.034 ng/mL Note: Cardiac troponin begins to rise 3-4 hours after the onset of ischemia. Repeat in 4-6 hours if the sample was drawn within 3-4 hours of the onset of the symptom and found normal. Diagnosis of myocardial injury is made with acute changes in cTn concentrations with at least one serial sample above the 99th percentile upper reference limit (URL), taken together with the patient's clinical presentation. Biotin has been reported to cause a negative bias, interpret results relative to patient's use of biotin. Lab Interpretation Abnormal (test code = 17408-6) [facility] [id number] 05:53:48 Test Item Value Reference Interpretation Comments Range TROPONIN I (test 0.042 ng/mL See_Comment H [Automated code = 8291447716) message] The system which generated this result transmitted reference range : <=0.034. The reference range was not used to interpret this result as normal/abnormal . BECKY (test code = Reference (Normal) BECKY) Range (defined by the 99th percentile reference limit): <= 0.034 ng/mL Note: Cardiac troponin begins to rise 3-4 hours after the onset of ischemia. Repeat in 4-6 hours if the sample was drawn within 3-4 hours of the onset of the symptom and found normal. Diagnosis of myocardial injury is made with acute changes in cTn concentrations with at least one serial sample above the 99th percentile upper reference limit (URL), taken together with the patient's clinical presentation. Biotin has been reported to cause a negative bias, interpret results relative to patient's use of biotin. Lab Interpretation Abnormal (test code = 07754-1) [facility]N-[facility]AL [id number] 05:50:44 Test Item Value Reference Range Interpretation Comments NT-proBNP (test code 139 pg/mL See_Comment H [Autom ated = 2040002148) message] The system which generated this result transmitted reference range : <=125. The reference range was not used to interpret this result as normal/abnormal . BECKY (test code = BECKY) Biotin has been reported to cause a negative bias, interpret results relative to patient's use of biotin. Lab Interpretation Abnormal (test code = 03375-4) [facility] [id number] 05:50:44 Test Item Value Reference Range Interpretation Comments NT-proBNP (test code 139 pg/mL See_Comment H [Autom ated = 0375688589) message] The system which generated this result transmitted reference range : <=125. The reference range was not used to interpret this result as normal/abnormal . BECKY (test code = BECKY) Biotin has been reported to cause a negative bias, interpret results relative to patient's use of biotin. Lab Interpretation Abnormal (test code = 31024-6) [facility]PHOS[facility]2022-[facility]-16 05:41:43 Test Item Value Reference Range Interpretation Comments PHOSPHORUS (test code = 0592629142) 3.6 mg/dL 2.5-5 Lab Interpretation (test code = Normal 34042-4) [facility] CenterLIPID PANEL (35180)(TOTAL CHOLESTEROL, TRIGLYCERIDES, HDL)2022-05-28 05:41:43 Test Item Value Reference Range Interpretation Comments CHOL (test code = 177 mg/dL 120-200 0207021784) HDL (test code = 31 mg/dL See_Comment L [Automated message] 4778542595) The system RIGID generated this result transmit sin reference range : >=50. The refer ence range was not u sed to interpret th is result as normal/abnormal . HDLC RATIO (test code = See_Comment H [Au tomated message] 1133438324) The system RIGID generated this result transmit sin reference range : <=4.5. The refe rence range was not u sed to interpret th is result as normal/abnormal . TRIG (test code = 214 mg/dL 30-170 H 7183385141) LDL CHOL (test code = 103 mg/dL See_Comment [Auto mated message] 75558-4) The system RIGID generated this result transmit sin reference range : <=160. The refe rence range was not u sed to interpret th is result as normal/abnormal . VLDL (test code = 43 mg/dL 5-60 5226715482) Lab Interpretation (test Abnormal code = 06340-4) [facility]2022-[facility]16 05:41:43 Test Item Value Reference Range Interpretation Comments PHOSPHORUS (test code = 0325443859) 3.6 mg/dL 2.5-5 Lab Interpretation (test code = Normal 83009-4) [facility] CenterLIP[facility]EL (85318)(TOTAL CHOLESTEROL, TRIGLYCERIDES, HDL)2022-05-28 05:41:43 Test Item Value Reference Range Interpretation Comments CHOL (test code = 177 mg/dL 120-200 9049087924) HDL (test code = 31 mg/dL See_Comment L [Automated message] 9825445504) The system RIGID generated this result transmit sin reference range : >=50. The refer ence range was not u sed to interpret th is result as normal/abnormal . HDLC RATIO (test code = See_Comment H [Au tomated message] 0847512903) The system RIGID generated this result transmit sin reference range : <=4.5. The refe rence range was not u sed to interpret th is result as normal/abnormal . TRIG (test code = 214 mg/dL 30-170 H 1100737846) LDL CHOL (test code = 103 mg/dL See_Comment [Auto mated message] 35346-5) The system RIGID generated this result transmit sin reference range : <=160. The refe rence range was not u sed to interpret th is result as normal/abnormal . VLDL (test code = 43 mg/dL 5-60 4062954551) Lab Interpretation (test Abnormal code = 70858-2) [facility] CenterGLYCOSYLATED HEMOGLOBIN (A1C)2022-05-28 05:33:04 Test Item Value Reference Range Interpretation Comments HGB A1C (test code = 9.0 % 4-5.7 H 4548-4) BECKY (test code = BECKY) Reference RangesNormal: <5.7%Prediabetes: 5.7 - 6.4%Diabetes: > 6.5% Lab Interpretation (test Abnormal code = 02444-6) [facility] CenterGLYCOSYLATED HEMOGLOBIN (A1C)2022-05-28 05:33:04 Test Item Value Reference Range Interpretation Comments HGB A1C (test code = 9.0 % 4-5.7 H 4548-4) BECKY (test code = BECKY) Reference RangesNormal: <5.7%Prediabetes: 5.7 - 6.4%Diabetes: > 6.5% Lab Interpretation (test Abnormal code = 50545-3) [facility] CenterTROPONIN [id number] 23:55:32 Test Item Value Reference Interpretation Comments Range TROPONIN I (test 0.041 ng/mL See_Comment H [Automated code = 7275252812) message] The system which generated this result transmitted reference range : <=0.034. The reference range was not used to interpret this result as normal/abnormal . BECKY (test code = Reference (Normal) BECKY) Range (defined by the 99th percentile reference limit): <= 0.034 ng/mL Note: Cardiac troponin begins to rise 3-4 hours after the onset of ischemia. Repeat in 4-6 hours if the sample was drawn within 3-4 hours of the onset of the symptom and found normal. Diagnosis of myocardial injury is made with acute changes in cTn concentrations with at least one serial sample above the 99th percentile upper reference limit (URL), taken together with the patient's clinical presentation. Biotin has been reported to cause a negative bias, interpret results relative to patient's use of biotin. Lab Interpretation Abnormal (test code = 89771-7) [facility] CenterTROPONIN [id number] 23:55:32 Test Item Value Reference Interpretation Comments Range TROPONIN I (test 0.041 ng/mL See_Comment H [Automated code = 2401245812) message] The system which generated this result transmitted reference range : <=0.034. The reference range was not used to interpret this result as normal/abnormal . BECKY (test code = Reference (Normal) BECKY) Range (defined by the 99th percentile reference limit): <= 0.034 ng/mL Note: Cardiac troponin begins to rise 3-4 hours after the onset of ischemia. Repeat in 4-6 hours if the sample was drawn within 3-4 hours of the onset of the symptom and found normal. Diagnosis of myocardial injury is made with acute changes in cTn concentrations with at least one serial sample above the 99th percentile upper reference limit (URL), taken together with the patient's clinical presentation. Biotin has been reported to cause a negative bias, interpret results relative to patient's use of biotin. Lab Interpretation Abnormal (test code = 82621-7) [facility]MAGN[facility]IUM2022-09-15 23:43:50 Test Item Value Reference Range Interpretation Comments MAGNESIUM (test code = 1692224080) 1.9 mg/dL 1.7-2.4 Lab Interpretation (test code = Normal 20471-4) [facility] Test Item Value Reference Range Interpretation Comments MAGNESIUM (test code = 4393968410) 1.9 mg/dL 1.7-2.4 Lab Interpretation (test code = Normal 21214-6) [facility] CenterCOMP. METABOLIC PANEL (27811)2022-05-27 23:43:49 Test Item Value Reference Range Interpretation Comments NA (test code = 136 mmol/L 135-145 0242325871) K (test code = 5.4 mmol/L 3.5-5 H 1863011132) CL (test code = 106 mmol/L 98-108 6762084130) CO2 TOTAL (test code = 25 mmol/L 23-31 8553244594) AGAP (test code = 2-16 3997386782) BUN (test code = 14 mg/dL 7-23 2198798707) GLUCOSE (test code = 188 mg/dL 70-110 H 2684050467) CREATININE (test code = 0.51 mg/dL 0.5-1.04 3279866708) TOTAL BILI (test code = 0.5 mg/dL 0.1-1.5 0409242697) CALCIUM (test code = 9.6 mg/dL 8.6-10.6 9238318145) T PROTEIN (test code = 7.3 g/dL 6.3-8.2 8354481555) ALBUMIN (test code = 4.2 g/dL 3.5-5 8408167435) ALK PHOS (test code = 158 U/L 34-122 H 3881657577) ALTv (test code = 17 U/L 5-35 1742-6) AST(SGOT) (test code = 28 U/L 13-40 1784204075) eGFR (test code = mL/min/1.73m2 7688814330) BECKY (test code = BECKY) Association of Glomerular Filtration Rate (GFR) and Staging of Kidney Disease* + --+ --+ ------+| GFR (mL/min/1.73 m2) ?| With Kidney Damage ?| ?Without Kidney Damage+ --------+ --------+ +| ?>90 ?| ?Stage one ?| ? Normal ?+ ---+ ---+ -------+| ?60-89 ?| ?Stage two ?| ? Decreased GFR ? + --+ --+ ------+| ?30-59 ?| ?Stage three ?| ? Stage three ? + --+ --+ ------+| ?15-29 ?| ?Stage four ? | ? Stage four ?+ ---+ ---+ -------+| ?<15 (or dialysis) ? ?| ?Stage five ? | ? Stage five ?+ ---+ ---+ -------+ *Each stage assumes the associated GFR level has been in effect for at least three months. ?Stages 1 to 5, with or without kidney disease, indicate chronic kidney disease. Notes: Determination of stages one and two (with eGFR >59mL/min/1.73 m2) requires estimation of kidney damage for at least three months as defined by structural or functional abnormalities of the kidney, manifested by either:Pathological abnormalities or Markers of kidney damage (including abnormalities in the composition of the blood or urine or abnormalities in imaging tests). Lab Interpretation Abnormal (test code = 09291-7) [facility] CenterLIPASE, [id number] 23:43:49 Test Item Value Reference Range Interpretation Comments LIPASE (test code = 8533610544) 169 U/L 0-220 Lab Interpretation (test code = Normal 11341-3) [facility] CenterCOMP. METABOLIC PANEL (75047)2022-05-27 23:43:49 Test Item Value Reference Range Interpretation Comments NA (test code = 136 mmol/L 135-145 1955581189) K (test code = 5.4 mmol/L 3.5-5 H 3164035058) CL (test code = 106 mmol/L 98-108 1180210150) CO2 TOTAL (test code = 25 mmol/L 23-31 1671686611) AGAP (test code = 2-16 6867821248) BUN (test code = 14 mg/dL 7-23 9326871323) GLUCOSE (test code = 188 mg/dL 70-110 H 8312238081) CREATININE (test code = 0.51 mg/dL 0.5-1.04 7360275749) TOTAL BILI (test code = 0.5 mg/dL 0.1-1.0 2786910227) CALCIUM (test code = 9.6 mg/dL 8.6-10.6 9847673513) T PROTEIN (test code = 7.3 g/dL 6.3-8.2 9863062790) ALBUMIN (test code = 4.2 g/dL 3.5-5 1559972964) ALK PHOS (test code = 158 U/L 34-122 H 8832741368) ALTv (test code = 17 U/L 5-35 1742-6) AST(SGOT) (test code = 28 U/L 13-40 9693840944) eGFR (test code = mL/min/1.73m2 0961370700) BECKY (test code = BECKY) Association of Glomerular Filtration Rate (GFR) and Staging of Kidney Disease* + --+ --+ ------+| GFR (mL/min/1.73 m2) ?| With Kidney Damage ?| ?Without Kidney Damage+ --------+ --------+ +| ?>90 ?| ?Stage one ?| ? Normal ?+ ---+ ---+ -------+| ?60-89 ?| ?Stage two ?| ? Decreased GFR ? + --+ --+ ------+| ?30-59 ?| ?Stage three ?| ? Stage three ? + --+ --+ ------+| ?15-29 ?| ?Stage four ? | ? Stage four ?+ ---+ ---+ -------+| ?<15 (or dialysis) ? ?| ?Stage five ? | ? Stage five ?+ ---+ ---+ -------+ *Each stage assumes the associated GFR level has been in effect for at least three months. ?Stages 1 to 5, with or without kidney disease, indicate chronic kidney disease. Notes: Determination of stages one and two (with eGFR >59mL/min/1.73 m2) requires estimation of kidney damage for at least three months as defined by structural or functional abnormalities of the kidney, manifested by either:Pathological abnormalities or Markers of kidney damage (including abnormalities in the composition of the blood or urine or abnormalities in imaging tests). Lab Interpretation Abnormal (test code = 92284-4) [facility] CenterLIP[facility], [id number] 23:43:49 Test Item Value Reference Range Interpretation Comments LIPASE (test code = 2365279032) 169 U/L 0-220 Lab Interpretation (test code = Normal 89779-7) [facility]eraPTT2022-[facility]-15 23:41:09 Test Item Value Reference Range Interpretation Comments APTT Patient (test See_Comment H [Automat ed code = 3173-2) message] The system which generated this result transmitted reference range : 23 - 38 Seconds . The reference range was not used to interpr et this result as normal/abnormal . BECKY (test code = BECKY) The [facility] patient population mean normal value for aPTT is 30 seconds. Lab Interpretation Abnormal (test code = 54967-3) [facility]eraPTT2022-[facility] 23:41:09 Test Item Value Reference Range Interpretation Comments APTT Patient (test See_Comment H [Automat ed code = 3173-2) message] The system which generated this result transmitted reference range : 23 - 38 Seconds . The reference range was not used to interpr et this result as normal/abnormal . BECKY (test code = BECKY) The [facility] patient population mean normal value for aPTT is 30 seconds. Lab Interpretation Abnormal (test code = 22703-8) [facility] CenterPROTHROMBIN TIME / [id number] 23:38:51 Test Item Value Reference Range Interpretation Comments PROTIME PATIENT (test See_Comment [Auto mated message] code = 5964-2) The system [facility] generated this result transmitted ref erence range: 12.0 - 1 4.7 Seconds. The re ference range was not u sed to interpret this result as normal/abnor mal. INR (test code = 6301-6) Nor mal INR <1.1; Warfarin Therap eutic range 2.0 to 3. 0 or 2.5 to 3.5, dep ending upon the indica tions. Lab Interpretation (test Normal code = 73122-8) [facility] CenterPROTHROMBIN TIME / [id number] 23:38:51 Test Item Value Reference Range Interpretation Comments PROTIME PATIENT (test See_Comment [Auto mated message] code = 5964-2) The system ich generated this result transmitted ref erence range: 12.0 - 1 4.7 Seconds. The re ference range was not u sed to interpret this result as normal/abnor mal. INR (test code = 6301-6) Nor mal INR <1.1; Warfarin Therap eutic range 2.0 to 3. 0 or 2.5 to 3.5, dep ending upon the indica tions. Lab Interpretation (test Normal code = 77972-3) [facility] CenterCB WITH [id number] 23:32:31 Test Item Value Reference Range Interpretation Comments WBC (test code = See_Comment H [Automated 6690-2) message] The sy stem which generated this result transmitted reference range : 4.30 - 11.10 10*3/?L. The reference range was not used to interpret this result as normal/abnormal . RBC (test code = See_Comment H [Automated 789-8) message] The sy stem which generated this result transmitted reference range : 3.93 - 5.25 10*6/?L. The reference range was not used to interpret this result as normal/abnormal . HGB (test code = 12.5 g/dL 11.6-15 718-7) HCT (test code = 39.1 % 35.7-45.2 4544-3) MCV (test code = 74.2 fL 80.6-95.5 L 787-2) MCH (test code = 23.7 pg 25.9-32.8 L 785-6) MCHC (test code = 32.0 g/dL 31.6-35.1 786-4) RDW-SD (test code = 41.9 fL 39-49.9 66237-6) RDW-CV (test code = 15.9 % 12-15.5 H 788-0) PLT (test code = See_Comment [Automated 777-3) message] The sy stem which generated this result transmitted reference range : 166 - 358 10*3/ ?L. The reference r neli was not used to interpret this result as normal/abnormal . MPV (test code = 11.0 fL 9.5-12.9 31777-0) NRBC/100 WBC (test See_Comment [Automat ed code = 6085974429) message] The system which generated this result transmitted reference range : 0.0 - 10.0 /100 WBCs. The refer ence range was not u sed to interpret th is result as normal/abnormal . NRBC x10^3 (test code See_Comment [Auto mated = 3280001793) message] The s ystem which generated this result transmitted reference range : 10*3/?L. The reference range was not used to interpret this result as normal/abnormal . GRAN MAT (NEUT) % 66.4 % (test code = 770-8) IMM GRAN % (test code 0.30 % = 9222114100) LYMPH % (test code = 24.5 % 736-9) MONO % (test code = 6.7 % 5905-5) EOS % (test code = 1.5 % 713-8) BASO % (test code = 0.6 % 706-2) GRAN MAT x10^3(ANC) 7.67 10*3/uL 1.88-7.09 H (test code = 4375382383) IMM GRAN x10^3 (test 0.04 10*3/uL 0-0.06 code = 2115918260) LYMPH x10^3 (test code 2.83 10*3/uL 1.32-3.29 = 731-0) MONO x10^3 (test code 0.77 10*3/uL 0.33-0.92 = 742-7) EOS x10^3 (test code = 0.17 10*3/uL 0.03-0.39 711-2) BASO x10^3 (test code 0.07 10*3/uL 0.01-0.07 = 704-7) Lab Interpretation Abnormal (test code = 15085-0) [facility] WITH [id number] 23:32:31 Test Item Value Reference Range Interpretation Comments WBC (test code = See_Comment H [Automated 6690-2) message] The sy stem which generated this result transmitted reference range : 4.30 - 11.10 10*3/?L. The reference range was not used to interpret this result as normal/abnormal . RBC (test code = See_Comment H [Automated 789-8) message] The sy stem which generated this result transmitted reference range : 3.93 - 5.25 10*6/?L. The reference range was not used to interpret this result as normal/abnormal . HGB (test code = 12.5 g/dL 11.6-15 718-7) HCT (test code = 39.1 % 35.7-45.2 4544-3) MCV (test code = 74.2 fL 80.6-95.5 L 787-2) MCH (test code = 23.7 pg 25.9-32.8 L 785-6) MCHC (test code = 32.0 g/dL 31.6-35.1 786-4) RDW-SD (test code = 41.9 fL 39-49.9 74656-0) RDW-CV (test code = 15.9 % 12-15.5 H 788-0) PLT (test code = See_Comment [Automated 777-3) message] The sy stem which generated this result transmitted reference range : 166 - 358 10*3/ ?L. The reference r neli was not used to interpret this result as normal/abnormal . MPV (test code = 11.0 fL 9.5-12.9 29682-7) NRBC/100 WBC (test See_Comment [Automat ed code = 0622108422) message] The system which generated this result transmitted reference range : 0.0 - 10.0 /100 WBCs. The refer ence range was not u sed to interpret th is result as normal/abnormal . NRBC x10^3 (test code See_Comment [Auto mated = 6683436183) message] The s ystem which generated this result transmitted reference range : 10*3/?L. The reference range was not used to interpret this result as normal/abnormal . GRAN MAT (NEUT) % 66.4 % (test code = 770-8) IMM GRAN % (test code 0.30 % = 0069856881) LYMPH % (test code = 24.5 % 736-9) MONO % (test code = 6.7 % 5905-5) EOS % (test code = 1.5 % 713-8) BASO % (test code = 0.6 % 706-2) GRAN MAT x10^3(ANC) 7.67 10*3/uL 1.88-7.09 H (test code = 6317857050) IMM GRAN x10^3 (test 0.04 10*3/uL 0-0.06 code = 5262129293) LYMPH x10^3 (test code 2.83 10*3/uL 1.32-3.29 = 731-0) MONO x10^3 (test code 0.77 10*3/uL 0.33-0.92 = 742-7) EOS x10^3 (test code = 0.17 10*3/uL 0.03-0.39 711-2) BASO x10^3 (test code 0.07 10*3/uL 0.01-0.07 = 704-7) Lab Interpretation Abnormal (test code = 09007-5) [facility]2020-10-30 19:29:00 Test Item Value Reference Range Interpretation Comments Vitamin B12 Lvl (test code = Vitamin 910 523-7774 B12 Lvl) [facility] Hospital[facility]vsojnbNBWSCMVDQO8929-54-66 19:29:00 Test Item Value Reference Range Interpretation Comments Sed Rate (test code = Sed Rate) 29 [facility]2020-10-30 19:29:00 Test Item Value Reference Range Interpretation Comments Vitamin B12 Lvl (test code = Vitamin 030 886-1603 B12 Lvl) [facility] HospitalCfcexyeYYNBWUPAOR6893-58-63 19:29:00 Test Item Value Reference Range Interpretation Comments Sed Rate (test code = Sed Rate) 29 [facility]2020-10-30 19:29:00 Test Item Value Reference Range Interpretation Comments Vitamin B12 Lvl (test code = Vitamin 508 240-5484 B12 Lvl) [facility] HospitalAfgpbklQRPCMLXCDA8481-70-13 19:29:00 Test Item Value Reference Range Interpretation Comments Sed Rate (test code = Sed Rate) 29 [facility]2020-10-30 19:29:00 Test Item Value Reference Range Interpretation Comments Vitamin B12 Lvl (test code = Vitamin 150 388-0913 B12 Lvl) [facility] HospitalVlaksqvYYZONJTVVM9538-79-37 19:29:00 Test Item Value Reference Range Interpretation Comments Sed Rate (test code = Sed Rate) 29 [facility]2020-10-30 19:29:00 Test Item Value Reference Range Interpretation Comments Vitamin B12 Lvl (test code = Vitamin 021 544-2141 B12 Lvl) [facility] HospitalUhzdsjfXVQFKLFOBA9460-26-58 19:29:00 Test Item Value Reference Range Interpretation Comments Sed Rate (test code = Sed Rate) 29 [facility]2020-10-30 19:29:00 Test Item Value Reference Range Interpretation Comments Vitamin B12 Lvl (test code = Vitamin 587 455-3715 B12 Lvl) [facility] HospitalAnnjpqhUCVBZKMHDB6537-56-80 19:29:00 Test Item Value Reference Range Interpretation Comments Sed Rate (test code = Sed Rate) 29 [facility]2020-10-30 19:29:00 Test Item Value Reference Range Interpretation Comments Vitamin B12 Lvl (test code = Vitamin 534 227-8622 B12 Lvl) [facility] HospitalUhacuemNVQPFQOIIF6613-80-04 19:29:00 Test Item Value Reference Range Interpretation Comments Sed Rate (test code = Sed Rate) 29 [facility]2020-10-30 19:29:00 Test Item Value Reference Range Interpretation Comments Vitamin B12 Lvl (test code = Vitamin 063 947-9660 B12 Lvl) [facility] HospitalGmlndneABAGSSIFGV0588-53-70 19:29:00 Test Item Value Reference Range Interpretation Comments Sed Rate (test code = Sed Rate) 29 [facility]2020-10-30 19:29:00 Test Item Value Reference Range Interpretation Comments Vitamin B12 Lvl (test code = Vitamin 839 904-6162 B12 Lvl) [facility] HospitalYucbzgzLDOABQZOXQ3559-79-73 19:29:00 Test Item Value Reference Range Interpretation Comments Sed Rate (test code = Sed Rate) 29 [facility]2020-10-30 19:29:00 Test Item Value Reference Range Interpretation Comments Vitamin B12 Lvl (test code = Vitamin 146 713-5710 B12 Lvl) [facility] HospitalDvedupwQKFXYUPAOK8218-16-46 19:29:00 Test Item Value Reference Range Interpretation Comments Sed Rate (test code = Sed Rate) 29 [facility]2020-10-30 19:29:00 Test Item Value Reference Range Interpretation Comments Vitamin B12 Lvl (test code = Vitamin 199 706-7843 B12 Lvl) [facility] HospitalDmwzaigPGPQODWRKH4157-42-11 19:29:00 Test Item Value Reference Range Interpretation Comments Sed Rate (test code = Sed Rate) 29 [facility]2020-10-30 19:29:00 Test Item Value Reference Range Interpretation Comments Vitamin B12 Lvl (test code = Vitamin 777 636-7742 B12 Lvl) [facility] HospitalQglkwgmEOVEQNUTJN7284-41-52 19:29:00 Test Item Value Reference Range Interpretation Comments Sed Rate (test code = Sed Rate) 29 [facility]2020-10-30 19:29:00 Test Item Value Reference Range Interpretation Comments Vitamin B12 Lvl (test code = Vitamin 391 634-8748 B12 Lvl) [facility] HospitalHkmzhnlXEKGTZDERC4144-43-96 19:29:00 Test Item Value Reference Range Interpretation Comments Sed Rate (test code = Sed Rate) 29 [facility] METABOLIC [id number] 07:50:00 Test Item Value Reference Range Interpretation Comments SODIUM (test code = 138 mmol/L 136-145 N NA) POTASSIUM (test code = 4.6 mmol/L 3.5-5.1 N K) CHLORIDE (test code = 104.0 mmol/L 98-107 N CL) CARBON DIOXIDE (test 23.3 mmol/L 21-32 N code = CO2) GLUCOSE (test code = 133 mg/dL 70-110 H GLU) BLOOD UREA NITROGEN 18 mg/dL 7-18 N (test code = BUN) GLOMERULAR FILTRATION 103.2 >60 Unit o f measure: RATE (test code = GFR) mL/mi n/1.73 h0Gqjxzenps Range:Healthy Adults >90 mL/min/1.73 m2 For Chronic Kidney Disease: Stage II Mild Decrease i n GFR 60-90 Stage III Moderate Decrea se in GFR 30-59 St age IV Severe Decre ase in GFR 15-29 St age V Kidney Failur e <15 CREATININE (test code 0.62 mg/dL 0.55-1.30 N = CREAT) CALCIUM (test code = 8.7 mg/dL 8.2-10.1 N CA) HGB [id number] 05:56:00 Test Item Value Reference Range Interpretation Comments HEMOGLOBIN (test code = HGB) 10.6 g/dL 12-16 L HEMATOCRIT (test code = HCT) 33.8 % 37-47 L - XR KNEE 1 OR 2 V [id number] 11:06:00 Patient Name: KENTRELL HOPSON Unit No: [id number] EXAMS: CPT CODE: [id number] XR KNEE 1 OR 2 [place] LT 78083 LEFT KNEE 2 VIEWS PORTABLE COMMENT: 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 at 1106 Reported and signed by: Dawit Vincent MD CC: Hai Irby MD Technologist: SHUKRI VALLE (RT.R) Transcribed D/ (1106) t.IRENER.JCL [facility] NAME: KENTRELL HOPSON [address] [facility] PHYS: Hai An MD : 1970 AGE: 47 SEX: F [place], [place] [address] LOC: Y.311 A PHONE #: [phone] EXAM DATE: 10/24/2018 STATUS: REG SD FAX #: [phone] RAD #: D/C DT PAGE 1 Signed Report Patient Name: KENTRELL HOPSON Unit No: [id number] EXAMS: CPT CODE: [id number] XR KNEE 1 [place] 2 [place] [address] (Continued) Orig Print D/T: S: 10/24/2018 (1110) [facility] NAME: KENTRELL HOPSON [address] [facility] PHYS: aHi An MD : 1970 AGE: 47 SEX: F [place], [place] [address] LOC: Y.311 A PHONE #: [phone] EXAM DATE: 10/24/2018 STATUS: [place] [facility] [place] #: [phone] RAD #: D/C DT PAGE 2 Signed ReportBASIC METABOLIC [id number] 17:12:00 Test Item Value Reference Range Interpretation [...] RATE (test code = GFR) mL/mi n/1.73 r5Luqncurho Range:Healthy Adults >90 mL/min/1.73 m2 For Chronic Kidney Disease: Stage II Mild Decrease i n GFR 60-90 Stage III Moderate Decrea se in GFR 30-59 St age IV Severe Decre ase in GFR 15-29 St age V Kidney Failur e <15 CREATININE (test code 0.52 mg/dL 0.55-1.30 L = CREAT) CALCIUM (test code = 9.8 mg/dL 8.2-10.1 N CA) CBC W/AUTO [id number] 16:46:00 Test Item Value Reference Range Interpretation [...] 0 % 0-0 N code = NRBC) Notes Date/Time Note Provider Source 2018-10-25 10:56:00-00:00 [facility] ([facility]) Clinical Note REPORT#:[id number] REPORT STATUS: Signed DATE:10/25/18 TIME: 1055 PATIENT: KENTRELL HOPSON UNIT #: [id number] ROOM/BED: [address] : 70 AGE: 47 SEX: F ATTEND: Juancarlos Irby MD ADM AUTHOR: Dallas Mason MD * ALL edits or amendments must be made on the el [employer]/computer document * Clinical Note Note: [facility] Dallas mendoza M.D. (cell text [phone]) Assessment/Plan 1.) Anemia of acute blood loss- .Hgb 10.6, asymp tomatic. 2.) S/p Left TKA- .acute pain control. Anticoagu lation as per Dr. Irby. 3.) Hypertension- .follow BP and hold Rxs if SBP <120. 4.) GERD- .continue on Rx. * OK for DISCHARGE per Internal Medicine. Prior Events/Overnight: Uneventful. Chief Complaint: No significant complaints. Objective Vital Signs: Date Time Temp Pulse Resp B/P B/P Pulse O2 O2 F low FiO2 Mean Ox Delivery Rate 10/25 1050 98.2 83 16 147/96 113.2 96 Room air 10/25 0743 98.6 111 16 123/80 94.4 99 Nasal cannula 10/25 0507 97.5 94 16 113/75 87.3 96 10/25 0234 95 Nasal 3.804670 32 cannula 10/24 2352 Nasal 3.319197 cannula 10/24 2204 99.1 109 16 114/66 82.1 94 10/24 2107 94 Nasal 3.166247 32 cannula 10/24 1945 97.3 111 16 100/66 77.2 96 10/24 1607 98.2 106 14 102/55 70.3 96 Room air 10/24 1137 98 Nasal 3.200084 32 cannula 10/24 1122 97.2 99 14 106/69 81.3 99 Nasal cannula Gen: Alert, oriented, in mild discomfort Neck: No Masses, No Thyromegaly- CV: Regular Rate Rhythm / Edema- no significant Resp: Clear To Ascultation / Normal Respiratory Effort ABD: NonTender / NonDistended MS/Skin: No Cyanosis / No no dules / +Ankle DF/PF / nl capillary refill of toes. Other: Labs/X-ray: Laboratory Tests: 10/255 Chemistry Sodium (136 - 145 mmol/L) 138 Potassium (3.5 - 5.1 mmol/L) 4.6 Chloride (98 - 107 mmol/L) 104.0 Carbon Dioxide (21 - 32 mmol/L) 23.3 BUN (7 - 18 mg/dL) 18 Creatinine (0.55 - 1.30 mg/dL) 0.62 Glomerular Filtr Rate (>60) 103.2 Glucose (70 - 110 mg/dL) 133 H Calcium (8.2 - 10.1 mg/dL) 8.7 Hematology Hgb (12 - 16 g/dL) 10.6 L Hct (37 - 47 %) 33.8 L Dallas Varghese M.D. at [address] [facility] #:[id number] END OF REPORT 2018-10-25 07:55:00-00:00 [id number] [place] [address] PATIENT NAME: KENTRELL HOPSON ADMIT DATE: 10/13 10/31 ACCOUNT NO: [id number] ROOM NO: AGE: 47 REPORT TYPE: DISCHARGE SUMMARY REPORT SEX: F ADMITTING PHYSICIAN: ATTENDING PHYSICIAN:Hai Irby MD ADMISSION DATE: 10/24/2018 DISCHARGE DATE: 10/25/2018 ADMITTING DIAGNOSIS: Left knee osteoarthritis. PRIMARY DISCHARGE DIAGNOSIS: Left knee osteoarth salomeis, M17.12. OPERATIVE PROCEDURES PERFORMED: On 10/24/2018, l eft total knee arthroplasty, 835[address]. HISTORY OF PRESENT ILLNESS: Ms. Hopson is a 47-year-old female who is well known to me from a previous right total knee arthropla sty. She has been having disabling pain in the left knee. Her pain has be en refractory to extensive nonoperative intervention. She is admitted for l eft total knee arthroplasty. HOSPITAL COURSE: Ms. Hopson was taken to the oper ative suite on the date of admission where she underwent a left total knee arthroplasty without complications. Postoperatively, the lorri ent received a total of 24 hours of IV antibiotic therapy. On the day of discharge, Ms. Hopson is eating and voiding without difficulty. Her dressing is dry and inta ct. Her neurovascular status is intact. She is independently ambulatory. Her hemoglobin is 10.6. Ms. Hopson will be discharged to home today. Offi ce followup in 2 weeks. Outpatient physiotherapy has been instructed. She is on aspirin prophylaxis for DVT prevention. CONDITION ON DISCHARGE: She is in stable conditi on at the time of discharge without questions or complaints. DISCHARGE MEDICATIONS: Please see discharge medi cation reconciliation sheet. Dictated By: Hai Irby MD WT: DS:DWAINE/RADHA/WATSON Conf#: [id number]/DID#: [id number] Authenticated by Hai Irby MD On 06:46:33 AM PATIENT NAME: KENTRELL HOPSON [id number] Electronically Signed by Hai Irby MD on 0 10/26/18 at 0646 PATIENT NAME: KENTRELL HOPSON [id number] 2018-10-24 22:10:00-00:00 [facility] ([facility]) Clinical Note REPORT#:[id number] REPORT STATUS: Signed DATE:10/24/18 TIME: 2209 PATIENT: KENTRELL HOPSON UNIT #: [id number] [facility] AGE: 47 SEX: F ATTEND: Juancarlos Irby MD ADM AUTHOR: Dallas Mason MD * ALL edits or amendments must be made on the el [employer]/computer document * Clinical Note Note: [facility] Dallas mendoza MD (cell text [phone]) Internal Medicine Consult at request of : Dr Zan Irby Chief Complaint: Left knee pain HPI: .47 yo F now s/p Left total knee arthroplas ty (TKA) by Dr. Irby. Ms. Hopson relates years of progr essive left knee pain (recently severe), worse with activity, and achy and stiff at times in quality . She has failed conservative management. Comorbidities: see below. 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 FHx: .No significant hx o f DVT/PE. Alcohol: none Drugs: none Lives: with family ROS: [X] all systems reviewed and negative excep t- [ ] Con: . Fever/ Wt loss [ ] CV: cpain/edema. [ ] Pul: . cough/SOB [ ] GI: hematemesis/diarrhe a [ ] : . dysuria or hematuria [X] MS: knee pain [ ] Neuro: . headache/loss sensation [ ] Heme: . adenopathy/Ecchymosis Vitals: Vital Signs: Date Time Temp Pulse Resp B/P B/P Pulse O2 O2 F low FiO2 Mean Ox Delivery Rate 10/24 2204 99.1 109 16 114/66 82.1 94 10/24 2107 94 Nasal 3.720919 32 cannula 10/24 1945 97.3 111 16 100/66 77.2 96 10/24 1607 98.2 106 14 102/55 70.3 96 Room air 10/24 1137 98 Nasal 3.739432 32 cannula 10/24 1122 97.2 99 14 106/69 81.3 99 Nasal cannula 10/24 1029 Nasal 3.435641 cannula 10/24 1001 96.6 94 16 129/65 89 99 Nasal cannula 10/24 0955 Nasal 3.022643 cannula 10/24 0943 89 12 140/60 100 Nasal 3.163214 cannula 10/24 0928 92 14 149/58 100 Nasal 3.875486 cannula 10/24 0924 Simple 8.869725 mask 10/24 0913 98.9 90 19 104/57 97 Simple 8.499095 mask 10/24 0709 97.3 101 20 152/88 97 Gen: Alert, in mild discomfort, nl nutrition. EYE: Nl lids conjunctiva. ENT: Nl ears Nose, nl lips,. Neck: Supple, nl thyroid, No masses. CV: Regular Rate Rhythm, no heave or significant murmur. Edema- none Feet toes normal temperature. RESP: Clear to Auscultation, normal Respiratory effort. ABD: Soft, NonDistended,. LYM: No significant cervical Lymphadenopathy. MS: No Clubbing, cyanosis, Knee is wrapped, drai n in place NEURO: Nonfocal, grossly normal sensation of LE, +Ankle DF/PF PSY: Normal insight, Normal mood, oriented, . Preop Labs (10/11/18): CBC:. Hgb 12.6, Plt 389, CHEM: Na 139, K 5.1, C r 0.52(eGFR 126.4%), . (medium to high risk of complications or morbidi ty) (major surgery) (IV sedative, meds) Assessment Plan 1.) Anemia of Acute Blood Loss- .will recheck . 2.) S/p Left TKA- .acute pain control. Anticoagu lation as per Dr. Irby. 3.) Hypertension- .follow BP and hold Rxs if SBP <120. 4.) GERD- .continue on Rx. Dallas Varghese M.D. Thanks! at 0625 RPT #:[id number] END OF REPORT 2018-10-24 09:09:00-00:00 [facility] ([facility]) Brief Op Note REPORT#:[id number] REPORT STATUS: Signed DATE:10/24/18 TIME: 908 PATIENT: KENTRELL HOPSON UNIT #: [id number] ROOM/BED: : 70 AGE: 47 SEX: F ATTEND: Juancarlos Irby MD ADM AUTHOR: Hai Irby MD * ALL edits or amendments must be made on the el [employer]/computer document * Op/Inv Proc Note - Brief Pre-procedure diagnosis: LEFT KNEE OA Post-procedure diagnosis: same as pre procedure dx Procedures performed: LEFT TOTAL KNEE Primary Surgeon: DR IRBY Technical Sales Representative(s): OSCAR JUAREZ Findings: Portions of this note were t ranscribed by a Scribe. I, personally performed the history, physical exam and medical decis ion making; and confirmed the accuracy of the information in the transcribed note. Complications: none Estimated blood loss in ml's: 50 ML Specimens removed/altered: none Portions of this section were scribed by Oscar Juarez on 10/24/18 at 0909 Electronically Signed by Hai Irby MD on at [address] [facility] [place] #:[id number] END OF REPORT 2018-10-24 09:05:00-00:00 [id number] [facility] [address] [place] [address] PATIENT NAME: KENTRELL HOPSON ADMIT DATE: 10/13 10/31 ACCOUNT NO: [id number] [facility] 47 REPORT TYPE: OPERATIVE REPORT SEX: F ADMITTING PHYSICIAN: ATTENDING PHYSICIAN:Hai Irby MD OPERATION DATE: 10/24/2018 PREOPERATIVE DIAGNOSIS: Left knee osteoarthritis . POSTOPERATIVE DIAGNOSIS: Left knee osteoarthriti s, M17.12. PROCEDURE PERFORMED: [place]pl[place], 78696. IMPLANTS UTILIZED: DePuy Att une total knee system, size-3 narrow left posterior stabilized femur, size-3 mob ile-bearing tibial tray, 3 x 10 mm rotating platform posterior stabilized tibial insert, and 35-mm ov al patella. All components cemented. ANESTHESIA: General. TOURNIQUET TIME: 27 minutes. ESTIMATED BLOOD LOSS: Less than 40 mL. SURGEON: Hai Irby MD LEGAL ACTIVITY ADJUDICATOR: LEANNA Torres CLINICAL INDICATIONS: Ms. Hopson is a 47-year-old female from [place], [place], severe and progressive pain in her left knee. Her pain has been occurring with daily activities. The pain has been refractory t o extensive nonoperative treatment. Due to her progressive pain and lack of response to nonoperative intervention, she is admitted for left total kne e arthroplasty. PROCEDURE IN DETAIL: LEFT TOTAL KNEE ARTHROPLAST Y, 77471. Ms. Hopson was brought to the operative s uite, at which time, she was placed in supine position on the OR table. Routine monitor s were established. General anesthesia was delivered. Af ter satisfactory induction of general anesthesia, a tourniquet was applied to th e patient's left lower extremity per Mr. Juarez and the left leg was circumferentially p repped and draped in the usual sterile fashion per Mr. Juarez. The leg was elevate d, exsanguinated, tourniquet insufflated to 350 mmHg. The knee was flexed to 100 degrees. Anterior midline incision was performed. Medial parapatellar arth rotomy was performed. Patella was everted laterally. Severe grade IV changes n oted through all three compartments. Hypertrophic osteophytes were rese cted. Ligament balancing was achieved. Medial and lateral menisci were excise d. Anterior and posterior PATIENT NAME: KENTRELL HOPSON [id number] cruciate ligaments were resected. Intramedullary instrumentati on was then used to resect distal femur to 5 degrees of valgus. The distal femur was appropri ately sized and a size-3 cutting block was used to create the anterior, followed by pos terior, followed by chamfer cuts. Appropriate osteotomy guide was then place d across distal femur. The femoral notch was resected. The proximal tibia was then translated anteriorl y. Utilizing extramedullary instrumentation, the proxima l tibia was resected perpendicular to its mechanical axis resecting 10 mm from the lateral tibial ralph teau. The proximal tibia was appropriately sized and a size-3 baseplate was n oted to provide optimal coverage. Appropriate rotatory alignment was ach ieved and the appropriate reamer and broach used to create center portion of the tibial insert. The patella was then resected so as to ensure samaritan of normal height with the prosthesis in place. Flexion and extension gaps w ere checked and noted to be equal. Trial components were placed into the joint. Optimal stability wa s noted with 10-mm insert, 0 degrees of gravity extension with 135 de grees of gravity flexion were present. Patellofemoral tracking was normal limits. There was no varus or valgus instability noted. The knee was stable in both f lexion as well as extension. The trial components were removed. The b guanako surfaces were prepared with cement implantation utilizing pulsatile lavage irrigati on. The tibial tray was cemented into place followed by cement implantat ion of femoral component. Polyethylene insert was then placed on tibial tr ay and the knee was placed in full extension. Patellar component was cemented. Tourniquet deflated. Meticulous hemostasis achieved with Bovie electr ocautery. Copious antibiotic lavage was performed. Medium Hemovac drain was then placed deep to the extensor mechanism and the knee was p laced into 70 degrees of flexion. Arthrotomy closed in watertight fashion with 2 .0 Quill suture. Skin was closed with interrupted 0 Vicryl, followed by 2-0 Vicryl, followed by surg ical campos per Mr. Juarez. Sterile dressing was applied by Mr. Juarez. The patient was then extubated, taken to rec overy room awake and alert without any anesthetic or operative complications. At the end of t he case, sponge and needle counts were correct x2. During the proce dure, Mr. Juarez was invaluable in positioning the patient as well as in preparation and drapin g of extremity. He is also responsible for providing ex posure during the procedure in order to ____ of the case as well as to protect the neurovascular bun dles. Finally, he was responsible for closure of the postoperative inc isions and application of postoperative dressing. Dictated By: Hai Irby MD WT: OP:DWAINE/RADHA/WATSON Conf#: [id number]/DID#: [id number] Authenticated by Hai Irby MD On 9 11:32:49 AM PATIENT NAME: KENTRELL HOPSON CAROLYN [id number] Electronically Signed by Hai Irby MD on 0 10/24/18 at 1133 PATIENT NAME: KENTRELL HOPSON ACCOUNT #: [id number] 2018-10-24 09:05:00-00:00 [id number] [place] [address] PATIENT NAME: KENTRELL HOPSON ADMIT DATE: 10/13 10/31 ACCOUNT NO: [id number] [facility] 47 REPORT TYPE: OPERATIVE REPORT SEX: F ADMITTING PHYSICIAN: ATTENDING PHYSICIAN:Hai Irby MD OPERATION DATE: 10/24/2018 PREOPERATIVE DIAGNOSIS: Left knee osteoarthritis . POSTOPERATIVE DIAGNOSIS: Left knee osteoarthriti s, M17.12. PROCEDURE PERFORMED: Left total knee arthroplast y, 87165. IMPLANTS UTILIZED: DePuy Att une total knee system, size-3 narrow left posterior stabilized femur, size-3 mob ile-bearing tibial tray, 3 x 10 mm rotating platform posterior stabilized tibial insert, and 35-mm ov al patella. All components cemented. ANESTHESIA: General. TOURNIQUET TIME: 27 minutes. ESTIMATED BLOOD LOSS: Less than 40 mL. SURGEON: Hai Irby MD LEGAL ACTIVITY ADJUDICATOR: LEANNA Torres CLINICAL INDICATIONS: Ms. Hopson is a 47-year-old female from [place], [place], severe and progressive pain in her left knee. Her pain has been occurring with daily activities. The pain has been refractory t o extensive nonoperative treatment. Due to her progressive pain and lack of response to nonoperative intervention, she is admitted for left total kne e arthroplasty. PROCEDURE IN DETAIL: LEFT TOTAL KNEE ARTHROPLAST Y, 64646. Ms. Hopson was brought to the operative s uite, at which time, she was placed in supine position on the OR table. Routine monitor s were established. General anesthesia was delivered. Af ter satisfactory induction of general anesthesia, a tourniquet was applied to th e patient's left lower extremity per Mr. Madisonbrainprudence and the left leg was circumferentially p repped and draped in the usual sterile fashion per Mr. Juarez. The leg was elevate d, exsanguinated, tourniquet insufflated to 350 mmHg. The knee was flexed to 100 degrees. Anterior midline incision was performed. Medial parapatel lar arthrotomy was performed. Patella was everted laterally. Severe grade IV changes n oted through all three compartments. Hypertrophic osteophytes were rese cted. Ligament balancing was achieved. Medial and lateral menisci were excise d. Anterior and posterior PATIENT NAME: KENTRELL HOPSON [id number] cruciate ligaments were resected. Intramedullary instrumentati on was then used to resect distal femur to 5 degrees of valgus. The distal femur was appropri ately sized and a size-3 cutting block was used to create the anterior, followed by pos terior, followed by chamfer cuts. Appropriate osteotomy guide was then place d across distal femur. The femoral notch was resected. The proximal tibia was then translated anteriorl y. Utilizing extramedullary instrumentation, the proxima l tibia was resected perpendicular to its mechanical axis resecting 10 mm from the lateral tibial ralph teau. The proximal tibia was appropriately sized and a size-3 baseplate was n oted to provide optimal coverage. Appropriate rotatory alignment was ach ieved and the appropriate reamer and broach used to create center portion of the tibial insert. The patella was then resected so as to ensure samaritan of normal height with the prosthesis in place. Flexion and extension gaps w ere checked and noted to be equal. Trial components were placed into the joint. Optimal stability wa s noted with 10-mm insert, 0 degrees of gravity extension with 135 de grees of gravity flexion were present. Patellofemoral tracking was normal limits. There was no varus or valgus instability noted. The knee was stable in both f lexion as well as extension. The trial components were removed. The b guanako surfaces were prepared with cement implantation utilizing pulsatile lavage irrigati on. The tibial tray was cemented into place followed by cement implantat ion of femoral component. Polyethylene insert was then placed on tibial tr ay and the knee was placed in full extension. Patellar component was cemented. Tourniquet deflated. Meticulous hemostasis achieved with Bovie electr ocautery. Copious antibiotic lavage was performed. Medium Hemovac drain was then placed deep to the extensor mechanism and the knee was p laced into 70 degrees of flexion. Arthrotomy closed in watertight fashion with 2 .0 Quill suture. Skin was closed with interrupted 0 Vicryl, followed by 2-0 Vicryl, followed by surg ical campos per Ramy Griceldaajitda. Sterile dressing was applied by Ramy Griceldabrandy. The patient was then extubated, taken to rec overy room awake and alert without any anesthetic or operative complications. At the end of t he case, sponge and needle counts were correct x2. During the proce dure, Mr. Juarez was invaluable in positioning the patient as well as in preparation and drapin g of extremity. He is also responsible for providing ex posure during the procedure in order to ____ of the case as well as to protect the neurovascular bun dles. Finally, he was responsible for closure of the postoperative inc isions and application of postoperative dressing. Dictated By: Hai Irby MD WT: OP:DWAINE/RADHA/WATSON Conf#: [id number]/DID#: [id number] Authenticated by Hai Irby MD On 11:32:49 AM PATIENT NAME: KENTRELL HOPSON [id number] Electronically Signed by Hai Irby MD on 0 10/24/18 at 1133 PATIENT NAME: KENTRELL HOPSON [id number] 2018-10-22 17:45:00-00:00 [id number] [facility] [address] [id number] PATIENT NAME: KENTRELL HOPSON ADMIT DATE: ACCOUNT NO: [id number] ROOM NO: AGE: 47 REPORT TYPE: HISTORY AND PHYSICAL SEX: F ADMITTING PHYSICIAN: ATTENDING PHYSICIAN:Hai Irby MD ADMISSION DATE: 10/24/2018 ADMITTING DIAGNOSIS: Left knee osteoarthritis, M 17.12. HISTORY OF PRESENT ILLNESS: Ms. Hopson is a 47-year-old female who is well known to me after undergoing a previous right total kn ee arthroplasty. The patient has done exceedingly well with her right knee. S he is developing progressive and disabling pain in the left knee, whi ch is occurring with daily activities. Her pain has been refractory to extensive nonope rative treatment. Due to her disabling pain and lack of response to n onoperative intervention, Ms. Hopson is admitted for left total knee arthroplasty. PAST MEDICAL HISTORY: Obesity. PAST SURGICAL HISTORY: Gastric bypass, cervical laminectomy, right total arthroplasty, knee arthroscopy. FAMILY HISTORY: Unremarkable. SOCIAL HISTORY: She is . She is a 10-pack -year smoker. 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 No alcohol use is noted. MEDICATIONS: No medications are listed. ALLERGIES: NO ALLERGIES ARE NOTED. REVIEW OF SYSTEMS: Negative. PHYSICAL EXAMINATION: VITAL SIGNS: Height 5 feet 2 inches tall, 111.3 kilograms. HEENT: Within normal limits. CARDIAC: Regular rate and rhythm. No murmur. CHEST: Clear. ABDOMEN: Benign. BACK: No CVA tenderness. PERTINENT ORTHOPEDIC EVALUATION: Her leg lengths are equal. She has full painless motion of both hips. Her left knee is i n varus. She has an antalgic gait. She has a positive effusion. Painful passi ve motion is present. She has 0 to 105 degrees of motion. There is no instabil ity. Her distal neurovascular status is intact. DIAGNOSTIC DATA: Radiographic evaluation reveals varus alignment with PATIENT NAME: KENTRELL HOPSON [id number] disease. ASSESSMENT: Left knee osteoarthritis. SURGICAL PLAN: Left total knee arthroplasty. I h ave gone over at length with Ms. Hopson the associated risks involved with thi s procedure. She understands that these risks include but are not limited to bleeding, transfusion requirement, infection, neurovascular da mage, leg length inequality, loosening of the prosthesis requiring possible revision, painful scar, deep vein thrombus leading to pulmonary emboli along with complicat ions secondary to anesthesia. Ms. Hopson further understands that there are no absolutely no guarantees or warranties that she will be pain free after the procedure. She accepts these risks and gives her informed consent to proceed. Dictated By: Hai Irby MD WT: HP:DWAINE/RADHA/WATSON Conf#: [id number]/DID#: [id number] Authenticated by Hai Irby MD On 9 06:46:07 AM Electronically Signed by Hai Irby MD on 0 10/23/18 at 0646 PATIENT NAME: KENTRELL HOPSON [id number]
[2023-02-03] MEDS ORDERED: ONDANSETRON 4 MG/2 ML VIAL ONE (02:01)
[2023-02-03] MEDS ORDERED: HYDROMORPHONE HCL 1 MG/ML INJ ONE (02:01)
[2023-02-03 02:30] LABS: Protime INR 0.95
[2023-02-03 02:32] LABS: Absolute Lymphocytes (CBC) 2.6 K/uL (0.7-4.9); Hematocrit 37.1 % (36.0-45.0); Lymphocytes % 22.6 % (15.3-44.8); MCV 74.8 fL (80-100); MPV 9.4 fL (7.6-11.3); RBC Red Blood Cell Count 4.97 M/uL (3.86-4.86)
[2023-02-03 02:42] LABS: Potassium 4.3 mEq/L (3.5-5.1); Troponin High Sensitivity 9.7 pg/mL (<58.9)
--- NOTE | 2023-02-03 03:12 | ER ---
Nurse's Notes [facility] Name: Samara Hopson Age: 52 yrs Sex: Female : 1970 Arrival Date: 02/03/2023 Time: 01:17 Bed 17 Private MD: Diagnosis: Headache;Vomiting without nausea Presentation: 02/03 01:33 Chief complaint: Patient states: I came because I have been having a migraine for about kd3 2 days and my blood pressure this morning was 201/115. I am a prior stroke patient so I came straight here. Coronavirus screen: Vaccine status: Patient reports receiving the 2nd dose of the covid vaccine. Ebola Screen: No symptoms or risks identified at this time. Initial Sepsis Screen: Does the patient meet any 2 criteria? No. Patient's initial sepsis screen is negative. Does the patient have a suspected source of infection? No. Patient's initial sepsis screen is negative. Risk Assessment: Do you want to hurt yourself or someone else? Patient reports no desire to harm self or others. Onset of symptoms was February 03, 2023. 01:33 Method Of Arrival: Ambulatory kd3 01:33 Acuity: TIO 3 kd3 Triage Assessment: 01:35 Headache History: The patient has had previous headaches. General: Appears kd3 uncomfortable, Behavior is calm, cooperative. Pain: Complains of pain in headache Pain currently is 6 out of 10 on a pain scale. Pain began gradually, Also complains of no other associated symptoms. Neuro: Level of Consciousness is awake, alert, obeys commands, Oriented to person, place, time, situation. Historical: - Allergies: 01:35 No Known Allergies; kd3 - PMHx: 01:35 CVA; GERD; kd3 - PSHx: 01:35 cervical fusion; Gastric Bypass; kd3 - Immunization history:: Adult Immunizations up to date. - Social history:: Smoking status: Patient denies any tobacco usage or history of. Screenin:36 [facility] ED Fall Risk Assessment (Adult) History of falling in the last 3 months, ha1 including since admission No falls in past 3 months (0 pts) Confusion or Disorientation No (0 pts) Intoxicated or Sedated No (0 pts) Impaired Gait No (0 pts) Mobility Assist Device Used No (0 pt) Altered Elimination No (0 pt) Score/Fall Risk Level 0 - 2 = Low Risk Oriented to surroundings, Maintained a safe environment, Educated pt \T\ family on fall prevention, incl call for assistance when getting out of bed, Hourly rounding (assess needs \T\ fall precautionary measures) done. 03:08 Abuse screen: Denies threats or abuse. Denies injuries from another. Nutritional ha1 screening: No deficits noted. Tuberculosis screening: No symptoms or risk factors identified. Assessment: 01:36 General: Appears uncomfortable, Behavior is calm, cooperative. Pain: Complains of pain ha1 in neck and back. 01:36 Neuro: Level of Consciousness is awake, alert, obeys commands, Oriented to person, ha1 place, time, situation. Cardiovascular: Capillary refill < 3 seconds Patient's skin is warm and dry. Respiratory: Airway is patent Respiratory effort is even, unlabored, Respiratory pattern is regular, symmetrical. GI: No signs and/or symptoms were reported involving the gastrointestinal system. Abdomen is non-distended, obese. : No signs and/or symptoms were reported regarding the genitourinary system. EENT: No signs and/or symptoms were reported regarding the EENT system. Derm: Skin is pink, warm \T\ dry. Musculoskeletal: Circulation, motion, and sensation intact. Range of motion: intact in all extremities, Reports pain in base of the skull and back. 02:00 Reassessment: Patient and/or family updated on plan of care and expected duration. Pain ha1 level reassessed. Patient is alert, oriented x 3, equal unlabored respirations, skin warm/dry/pink. Patient denies pain at this time. 03:00 Reassessment: Patient and/or family updated on plan of care and expected duration. Pain ha1 level reassessed. Patient is alert, oriented x 3, equal unlabored respirations, skin warm/dry/pink. Patient states feeling better. Patient states symptoms have improved. Vital Signs: 01:33 BP 163 / 109; Pulse 74; Resp 18; Pulse Ox 98% on R/A; Weight 108.86 kg; Height 5 ft. 2 kd3 in. ; 02:00 BP 150 / 75; Pulse 70; Resp 18 S; Pulse Ox 98% on R/A; ha1 02:35 BP 140 / 75; Pulse 69; Resp 18 S; Pulse Ox 98% ; ha1 03:00 BP 127 / 73; Pulse 71; Resp 18 S; Pulse Ox 97% on R/A; ha1 01:33 Body Mass Index 43.90 (108.86 kg, 157.48 cm) kd3 ED Course: 01:20 Patient arrived in ED. ag3 01:35 Triage completed. kd3 01:35 Arm band placed on right wrist. kd3 01:36 Patient has correct armband on for positive identification. Placed in gown. Bed in low ha1 position. Call light in reach. Side rails up X 1. Adult w/ patient. 01:39 Mattie Landin MD is Attending Physician. sp3 01:45 Mery Holden, RN is Primary Nurse. ha1 01:57 Inserted saline lock: 22 gauge in left wrist, using aseptic technique. Blood collected. ds4 02:01 Basic Metabolic Panel Sent. ha1 02:01 CBC with Diff Sent. ha1 02:01 PT-INR Sent. ha1 02:01 Troponin HS Sent. ha1 02:14 CT Head Brain wo Cont In Process Unspecified. EDMS 03:25 No provider procedures requiring assistance completed. ha1 03:25 IV discontinued, intact, bleeding controlled, No redness/swelling at site. Pressure ha1 dressing applied. Administered Medications: 01:45 Drug: Ondansetron IVP 4 mg Route: IVP; Site: left forearm; ha1 02:00 Follow up: Response: No adverse reaction ha1 01:50 Drug: HYDROmorphone IVP 1 mg Route: IVP; Site: left forearm; ha1 02:00 Follow up: Response: No adverse reaction; Pain is decreased; RASS: Alert and Calm (0) ha1 Medication: 03:25 VIS not applicable for this client. ha1 Outcome: 03:10 Discharge ordered by . kd3 03:25 Discharged to home ambulatory, with family. ha1 03:25 Condition: stable 03:25 Discharge instructions given to patient, family, Instructed on discharge instructions, follow up and referral plans. medication usage, Demonstrated understanding of instructions, follow-up care, medications. 03:27 Patient left the ED. ha1 Signatures: Dispatcher [employer] EDWA Pete Mick ds4 Jovana Camara 3 Mattie Landin MD MD 3 Annetta Hoyos RN RN 3 Mery Holden, RN RN ha1 Corrections: (The following items were deleted from the chart) 03:04 02:00 Response: No adverse reaction ha1 ha1
--- NOTE | 2023-02-03 03:12 | EDPHYS ---
Physician Documentation [facility] Name: Samara Hopson Age: 52 yrs Sex: Female : 1970 Arrival Date: 02/03/2023 Time: 01:17 Bed 17 Private MD: ED Physician Mattie Landin HPI: 02/03 02:32 This 52 yrs old Female presents to ER via Ambulatory with complaints of Headache, High sp3 Blood Pressure. 02:32 52-year-old female with history of prior CVA, reflux, migraine headaches now presents sp3 with chief complaint 1 day of migraine headache with aura and nausea. She denies any focal neurodeficits including speech changes, memory changes, cognitive changes, and motor changes. She also denies neck pain, chest pain, shortness of breath, abdominal pain, diarrhea, rash, known sick contacts, travel history, prolonged immobilization, irregular heartbeat, or any other signs or symptoms on review of systems at this time. She states she came in purely for precaution and treatment for her headache.. Historical: - Allergies: 01:35 No Known Allergies; kd3 - PMHx: 01:35 CVA; GERD; kd3 - PSHx: 01:35 cervical fusion; Gastric Bypass; kd3 - Immunization history:: Adult Immunizations up to date. - Social history:: Smoking status: Patient denies any tobacco usage or history of. ROS: 02:33 Constitutional: Negative for fever, chills, and weight loss, Eyes: Negative for injury, sp3 pain, redness, and discharge, ENT: Negative for injury, pain, and discharge, Neck: Negative for injury, pain, and swelling, Cardiovascular: Negative for chest pain, palpitations, and edema, Respiratory: Negative for shortness of breath, cough, wheezing, and pleuritic chest pain, Abdomen/GI: Negative for abdominal pain, nausea, vomiting, diarrhea, and constipation, Back: Negative for injury and pain, MS/Extremity: Negative for injury and deformity, Skin: Negative for injury, rash, and discoloration. 02:33 All other systems are negative. Exam: 02:33 Constitutional: This is a well developed, well nourished patient who is awake, alert, sp3 and in no acute distress. Head/Face: Normocephalic, atraumatic. Eyes: Pupils equal round and reactive to light, extra-ocular motions intact. Lids and lashes normal. Conjunctiva and sclera are non-icteric and not injected. Cornea within normal limits. Periorbital areas with no swelling, redness, or edema. ENT: Nares patent. No nasal discharge, no septal abnormalities noted. External auditory canals are clear. Oropharynx with no redness, swelling, or masses, exudates, or evidence of obstruction, uvula midline. Mucous membranes moist. Neck: Trachea midline, no thyromegaly or masses palpated, and no cervical lymphadenopathy. Supple, full range of motion without nuchal rigidity, or vertebral point tenderness. No Meningismus. Chest/axilla: Normal chest wall appearance and motion. Nontender with no deformity. No lesions are appreciated. Cardiovascular: Regular rate and rhythm with a normal S1 and S2. No gallops, murmurs, or rubs. Normal PMI, no JVD. No pulse deficits. Respiratory: Lungs have equal breath sounds bilaterally, clear to auscultation and percussion. No rales, rhonchi or wheezes noted. No increased work of breathing, no retractions or nasal flaring. Abdomen/GI: Soft, non-tender, with normal bowel sounds. No distension or tympany. No guarding or rebound. No evidence of tenderness throughout. Back: No spinal tenderness. No costovertebral tenderness. Full range of motion. Skin: Warm, dry with normal turgor. Normal color with no rashes, no lesions, and no evidence of cellulitis. MS/ Extremity: Pulses equal, no cyanosis. Neurovascular intact. Full, normal range of motion. Neuro: Awake and alert, GCS 15, oriented to person, place, time, and situation. Cranial nerves II-XII grossly intact. Motor strength 5/5 in all extremities. Sensory grossly intact. Cerebellar exam normal. Normal gait. 02:33 ECG was reviewed by the Attending Physician. EKG demonstrates normal sinus rhythm at 79 bpm with normal intervals, normal axis, normal QRS, normal ST/T segments without evidence of acute ischemia. Vital Signs: 01:33 BP 163 / 109; Pulse 74; Resp 18; Pulse Ox 98% on R/A; Weight 108.86 kg; Height 5 ft. 2 kd3 in. ; 02:00 BP 150 / 75; Pulse 70; Resp 18 S; Pulse Ox 98% on R/A; ha1 02:35 BP 140 / 75; Pulse 69; Resp 18 S; Pulse Ox 98% ; ha1 03:00 BP 127 / 73; Pulse 71; Resp 18 S; Pulse Ox 97% on R/A; ha1 01:33 Body Mass Index 43.90 (108.86 kg, 157.48 cm) 3 MDM: 01:51 Patient medically screened. sp3 02:34 Data reviewed: vital signs, nurses notes, lab test result(s), EKG, radiologic studies. sp3 ED course: 52-year-old female with migraine type symptoms. Differential diagnosis includes migraine headache, nonspecific headache, viral syndrome, among others. I am not highly suspicious for intracranial hemorrhage, CVA, trauma, or any other critical pathology at this time. Will administer Dilaudid and Zofran, check labs and CT scan of the head and follow vital signs including blood pressure. If work-up is negative, we will safely discharge home to PCP follow-up.. 02/03 01:42 Order name: Basic Metabolic Panel [facility] 02/03 01:42 Order name: CBC with Diff 3 02/03 01:42 Order name: PT-INR [facility] 02/03 01:42 Order name: Troponin HS [facility] 02/03 01:42 Order name: CT Head Brain wo Cont 3 02/03 01:42 Order name: EKG; Complete Time: 01:43 [facility] 02/03 01:42 Order name: Cardiac monitoring; Complete Time: 02:01 02/03 01:42 Order name: EKG - Nurse/Tech; Complete Time: 01:43 [facility] 02/03 01:42 Order name: IV Saline Lock; Complete Time: 01:56 3 02/03 01:42 Order name: Labs collected and sent; Complete Time: 01:56 [facility] 02/03 01:42 Order name: O2 Sat Monitoring; Complete Time: 01:57 [facility] Administered Medications: 01:45 Drug: Ondansetron IVP 4 mg Route: IVP; Site: left forearm; ha1 02:00 Follow up: Response: No adverse reaction ha1 01:50 Drug: HYDROmorphone IVP 1 mg Route: IVP; Site: left forearm; ha1 02:00 Follow up: Response: No adverse reaction; Pain is decreased; RASS: Alert and Calm (0) ha1 Disposition Summary: 02/03/23 03:10 Discharge Ordered Location: Home kd3 Problem: new kd3 Symptoms: have improved kd3 Condition: Stable kd3 Diagnosis - Headache kd3 - Vomiting without nausea kd3 Followup: kd3 - With: Private Physician - When: 2 - 3 days - Reason: Re-evaluation by your physician Followup: kd3 - With: Emergency Department - When: As needed - Reason: Worsening of condition Discharge Instructions: - Discharge Summary Sheet sp3 - Migraine Headache sp3 Forms: - Medication Reconciliation Form kd3 - Thank You Letter kd3 Prescriptions: - Diclofenac Sodium 75 mg Oral Tablet Sustained Release - take 1 tablet by ORAL route 2 times per day; 30 tablet; Refills: 0, Product sp3 Selection Permitted Signatures: Dispatcher [employer] EDMS Mattie Landin MD MD sp3 Annetta Hoyos RN RN kd3 Mery Holden RN RN ha1
[2023-02-03 03:55] VITALS: BP 127/73; O2SAT 97
--- NOTE | 2023-02-03 12:31 | EKG ---
Test Date: 2023-02-03 Test Time: 01:31:49 Pharmacy Billing Adjudicator: BRITTANIE MEASUREMENT RESULTS: Intervals: Rate: 79 MS: 178 QRSD: 78 QT: 348 QTc: 399 [place]: P: 70 MS: 178 QRS: 95 T: 68 INTERPRETIVE STATEMENTS: Normal sinus rhythm Rightward axis Borderline ECG Compared to ECG 04/15/2021 19:13:51 Right-axis deviation now present Sinus tachycardia no longer present Electronically Signed On 02-03-23 12:30:00 CDT by Elias Perez
--- NOTE | 2023-02-03 21:49 | RAD REPORT ---
EXAM DESCRIPTION: CT - Head Brain Wo Cont - 02/03/2023 7:03 am CLINICAL HISTORY: HEADACHE COMPARISON: None. TECHNIQUE: CT HEAD WITHOUT IV CONTRAST on 02/03/2023 1:42 AM CDT This exam was performed according to our departmental dose-optimization program, which includes autom ated exposure control, adjustment of the mA and/or kV according to patient size and/or use of iterati ve reconstruction technique. FINDINGS: There is no acute hemorrhage, mass effect or midline shift. There is encephalomalacia in t he posterior left occipital lobe. There is no hydrocephalus. There is no significant volume loss for age. The calvarium is intact. Orbits and globes are unremarkable. The paranasal sinuses are clear. Mastoid air cells are clear. IMPRESSION: No acute intracranial findings. Electronically signed by: Howard Griffiths MD 02/03/2023 2:42 AM CDT Due to temporary technical issues with the PACS/Fluency reporting system, reports are being signed by the in house radiologists without review as a courtesy to insure prompt reporting. The interpreting radiologist is fully responsible for the content of the report.
== END 2023-02-03 03:27 | disposition home or self-care (01) ==
LOC: ER 01:17
DX: R51.9 Headache, unspecified (principal); R11.11 Vomiting without nausea; Z86.73 Personal history of transient ischemic attack (TIA), and cerebral infarction without residual deficits
CPT/HCPCS: 93005; 85025; 80048; 36415; 85610; 84484; 70450; 96375; 96374; 99284; J1170; J2405

== ENCOUNTER 2023-04-13 07:34 | Emergency (ER) | payer OTHER ==
--- OUTSIDE RECORDS SUMMARY | 2023-04-13 07:58 | XMS REPORT | Continuity of Care Document ---
:1970 Author Organization [facility] t Address [address] [place] [address] Care Team Providers Name Role Phone Pcp, Patient Does Not Have A Primary Care Physician [id number] Steven David Attending Clinician Unavailable Luiza Morales Attending Clinician Doctor Unassigned, [place] Attending Clinician Unavailable Jacky Ambrocio Attending Clinician LUIZA LUNA Attending Clinician Unavailable LOUISA BATRES Attending Clinician Unavailable LOUISA BATRES Attending Clinician Unavailable KRISSY RODRIGUEZ Attending Clinician Unavailable Rehab, Adc Cardiac Attending Clinician Unavailable Krissy Rodriguez MD Attending Clinician Tennille Peralta LVN Attending Clinician Reba Mckeon DO Attending Clinician Saad Alfaro MD Attending Clinician Mati Samuel DO Attending Clinician Aiden Prado MD Attending Clinician AIDEN PRADO Attending Clinician Unavailable Carlos Alberto MATT, Layla Buenrostro Attending Clinician Ceferino MATT, Davie Taylor Attending Clinician Danny Mejia Attending Clinician VISIT, NURSE MURRAYN Attending Clinician Unavailable Osman Rodriguez Attending Clinician Fina Corcoran Attending Clinician Steven David Admitting Clinician Unavailable Aiden Prado MD Admitting Clinician AIDEN PRADO Admitting Clinician Unavailable Payers Payer Name Policy Type Policy Number Effective Date Expiration Date S ource Problems Condition Condition Condition Status Onset Resolution Last Treating Co mments Source Name Details Category Date Date Treatment Clinician Date Essential Essential Disease Active Uni vers hypertensi hypertensi 9-16 it y of on on 00:00: [place] [facility] Dyslipidem Dyslipidem Disease Active U nivers ia ia 16 ity of 00:00: [place] [facility] Chest Chest Disease Active Univers pain, pain, 9-15 ity of [place] Morbid Morbid Disease Active Univers obesity obesity 9-15 ity of with [place] index 00 Me dical of of Branch 40.0-49.9 40.0-49.9 G43.109 - G43.109 - Diagnosis Active 2020-06-11 Memoria "MIGRAINE "MIGRAINE 06-04 14:07:00 l WITH AURA, WITH AURA, 00:01: [place] NOT INTRA NOT INTRA 00 Active 06/04/2020 [facility] [place] R51 - R51 - Diagnosis Active 2019-06-04 Mem oria HEADACHE HEADACHE 06-04 16:27:00 l Active 00:01: [place] 06/04/2019 00 MH OPID [place] Iron Iron Problem Active 2023-01-30 Memor ia deficiency deficiency 13:12:45 l anemia anemia [place] (disorder) (disorder) Active Problem 01/30/2023 Medical Group,[facility] her Neuro,[facility] Hoarse Hoarse Problem Active 2023-01-30 Catrachito darlin (finding) (finding) 13:12:45 l Active [place] Problem 01/30/2023 [facility] Hypertensi Hypertens Problem Active 2023-01-30 Memoria ve coretta 13:12:45 l disorder, disorder, Herm sienna systemic systemic arterial arterial (disorder) (disorder) Active Problem [facility] Cervical Cervical Problem Active 2023-01-30 Memoria radiculopa radiculopa 13:12:45 l thy thy [place] (disorder) (disorder) Active Problem 01/30/2023 [facility] [place] Diabetes Diabetes Problem Active 2023-01-30 Memoria mellitus mellitus 13:12:45 l type 2 type 2 [place] (disorder) (disorder) Active Problem 01/30/2023 Automatica lly added by Discern Expert with order of Add Problem Diabetes Type II on December 31, 2022 09:29:19 CDT with order ID: [id number] 9.0 entered by Jacky Ambrocio MD. [facility] Shoulder Shoulder Problem Active 2023-01-30 Memoria pain pain 13:12:45 l (finding) (finding) [place] Active Problem 01/30/2023 [facility] [place] M25.511 - M25.511 Diagnosis Active 2023-01-11 Memoria PAIN IN - PAIN IN 16:00:00 l RIGHT RIGHT [place] SHOULDER SHOULDER Active [facility] [place] M54.12 - M54.12 - Diagnosis Active 2023-01-15 Memoria RADICULOPA RADICULOPA 13:51:00 l THY, THY, [place] CERVICAL CERVICAL REGION REGION Active [facility] [place] Acid Acid Problem Resolve 2022-03-18 Catrachito darlin reflux reflux d 22:00:38 l (finding) (finding) [place] Resolved Problem 03/18/2022 Medical Group,[facility] her Neuro, OPID [place], [facility] [place] Benign Benign Problem Resolve 2022-03-18 Mem oria hypertensi hypertensi d 22:00:38 l on on [place] (disorder) (disorder) Resolved Problem 03/18/2022 Medical Group,[facility] her Neuro, OPID [place], ANDREINA Em Diabetes Diabetes Problem Resolve 2022-03-18 Memoria mellitus mellitus d 22:00:38 l (disorder) (disorder) [place] Resolved Problem 03/18/2022 Medical Group,[facility] her Neuro, DIANELYSD [place], ANDREINA Em Hyperlipid Hyperlipi Problem Active 2023-01-30 Memoria emia demia 13:12:45 l (disorder) (disorder) [place] Active Problem 01/30/2023 Medical Group,[facility] her Neuro, OPID [place] rodriguez, Max Gibbons [facility] Heavy Heavy Problem Active 2021-01-26 Memor ia cigarette cigarette 23:22:40 l smoker smoker [place] (finding) (finding) Active Problem 01/26/2021 Medical Group,[facility] her Neuro, OPInAselmo Friends[place] rodriguez, ANDREINA Em Anemia Anemia Problem Active 2021-07-05 Catrachito darlin (disorder) (disorder) 21:39:12 l Active [place] Problem 07/05/2021 [facility] Cerebrovas Cerebrova Problem Active 2023-01-30 Memoria cular scular 13:12:45 l accident accident [place] n (disorder) (disorder) Active Problem 01/30/2023 Medical Group,[facility] her Neuro,[facility] Exercise-i Exercise- Problem Active 2023-01-30 Memoria nduced induced 13:12:45 l asthma asthma [place] (disorder) (disorder) Active Problem 01/30/2023 Medical Group,[facility] her Neuro, OPID [place] rodriguez, Max Gibbons [facility] Gastroesop Gastroeso Problem Active 2023-01-30 Memoria hageal phageal 13:12:45 l reflux reflux [place] disease disease without without esophagiti esophagiti s s (disorder) (disorder) Active Problem 01/30/2023 Medical Group,[facility] her Neuro, ANDREINA rodriguez, Max Gibbons [facility] Herpes Herpes Problem Active 2023-01-30 Catrachito darlin simplex simplex 13:12:45 l with with [place] complicati complicati on on (disorder) (disorder) Active Problem 01/30/2023 Medical Group,[facility] her Neuro, OPID [place] anselmo,[facility] [place] History of History Problem Active 2023-01-30 Memoria - CVA of - CVA 13:12:45 l (context-d (context-d [place] ependent ependent category) category) Active Problem 01/30/2023 Medical Group,[facility] her Neuro, OPID [facility] anselmo,[facility]aired Impaired Problem Active 2023-01-30 Memoria fasting fasting 13:12:45 l glycaemia glycaemia [place] (disorder) (disorder) Active Problem 01/30/2023 Medical Group,[facility] her Neuro, OPID [place] anselmo,[facility] Light Light Problem Active 2023-01-30 Memor ia cigarette cigarette 13:12:45 l smoker smoker [place] (finding) (finding) Active Problem 01/30/2023 Medical [facility] her [facility] Migraine Migraine Problem Active 2023-01-30 Memoria with aura with aura 13:12:45 l (disorder) (disorder) [place] Active Problem 01/30/2023 [facility] Group,[facility] her [facility] Mixed Mixed Problem Active 2023-01-30 Memor ia hyperlipid hyperlipid 13:12:45 l emia emia [place] (disorder) (disorder) Active Problem 01/30/2023 Medical Group,[facility] her Neuro, OPID [place],[facility] Morbid Morbid Problem Active 2023-01-30 Catrachito darlin obesity obesity 13:12:45 l (disorder) (disorder) [place] Active Problem 01/30/2023 Medical Group,[facility] her Neuro, OPID [place] anselmo,[facility] Patient Patient Problem Active 2023-01-30 Me moria non-compli non-compli 13:12:45 l [facility] general general (context-d (context-d ependent ependent category) category) Active Problem 01/30/2023 Medical Group,[facility] her Neuro, OPIAnselmo Friendswkadi rodriguez, Max Gibbons [facility] Pes Pes Problem Active 2023-01-30 Memor ia anserinus anserinus 13:12:45 l bursitis bursitis [place] n (disorder) (disorder) Active Problem 01/30/2023 [facility] Group,[facility] her Neuro, ANDREINA rodriguez, Max Gibbons [facility] Sinus Sinus Problem Active 2021-07-05 Memor ia headache headache 21:39:12 l (finding) (finding) Herm sienna Active Problem 07/05/2021 [facility] her Neuro Constipati Constipat Problem Active 2023-01-30 Memoria on ion 13:12:45 l (disorder) (disorder) [place] Active Problem 01/30/2023 [facility] her Neuro,[facility] History of Past Illness Condition Condition Condition Status Onset Resolution Last Treating Co mments Source Name Details Category Date Date Treatment Clinician Date Cyst and Cyst and Problem 2020-092021-07-17 2021-07-17 Memoria mucocele mucocele 09-13 01:37:14 01:37:14 l of nose of nose 18:26: [place] and nasal and nasal 00 sinus sinus 07/14/2021 07/17/2021 Medical Group Encounter Encounter Problem 2020-092021-07-17 2021-07-17 Memoria for for 09-13 01:37:14 01:37:14 l immunizati immunizati 18:21: [place] on on 00 07/14/2021 07/17/2021 Medical Group Gastro-eso Problem 2020-092021-07-17 2021-07-17 Memoria phageal Gastro-eso 09-13 01:37:14 01:37:14 l reflux phageal 18:18: [place] disease reflux 00 without disease esophagiti without s esophagiti s 07/14/2021 07/17/2021 Medical Group Other iron Other Problem 2020-092021-07-17 2021-07-17 Memoria deficiency iron 09-13 01:37:14 01:37:14 l anemias deficiency 18:16: Ariana nn anemias 00 07/14/2021 07/17/2021 Medical Group Other Other Problem 2020-092021-07-17 2021-07-17 Memoria constipati constipati 09-13 01:37:14 01:37:14 l on on 18:16: [place] 07/14/2021 00 07/17/2021 Medical Group Allergies, Adverse Reactions, Alerts Allergy Allergy Status Severity Reaction(s) Onset Inactive Treating Comm ents Source Name Type Date Date Clinician No Known DA Active U 2018-0 [facility] 00 [facility] [place] [facility] No Known DA Active U 2018-0 [facility] Allergie 1-30 Clear s 00:00: Lin 00 [facility] No Known DA Active U 0 [facility] Allergie 3-20 [place] 00:[facility]: [facility] 00 [facility] NO KNOWN Drug Active Univers ALLERGIE Class ity of S [facility] Social History Social Habit Start Date Stop Date Quantity Comments Source History of tobacco Cigarette Smoker University of use [facility] Sexual orientation Univer sit of [facility] Alcohol intake 2023-01-18 2023-01-18 Ex-drinker [facility] 00:00:00 00:00:00 (finding) [facility] History of Social 2023-01-18 2023-01-18 Univers ity of function 00:00:00 00:00:00 [facility] Exposure to 2023-01-07 2023-01-17 Not sure [facility] SARS-CoV-2 (event) 00:00:00 13:10:00 [facility] Tobacco use and 2022-05-27 2022-05-27 Smokeless tobacco Un iversity of exposure 00:00:00 00:00:00 non-user [facility] Tobacco Comment 2022-05-27 2022-05-27 15 cigarretes per Un iversity of 00:00:00 00:00:00 day [facility] Social History 2015-12-24 2015-12-24 [facility] 18:11:14 18:11:14 Sex [birth year] Universit y of 00:00:00 00:00:00 [facility] Smoking Status Start Date Stop Date Source Tobacco smoking status 2023-01-18 14:50:42 Donovan [place] Medications Ordered Filled Start Stop Current Ordering Indication Dosage Frequency Signature Comments Components Source Medication Medication Date Date Medication? Clinician (SIG) Name Name gabapentin Yes See Memoria 300 mg oral 5-09 Instructio l capsule 15:18: ns, 1 cap Ariana nn 00 PO BID and 2 po qhs, # 120 cap, 3 Refill(s), Pharmacy: [id number], 154.94, cm, 01/18/23 9:56:00 CDT, Height, 112.727, kg, 01/18/23 9:56:00 CDT, Weight gabapentin 2022- Yes See Memoria 300 mg oral 5-09 Instructio l capsule 15:18: ns, 1 cap Ariana nn 00 PO BID and 2 po qhs, # 120 cap, 3 Refill(s), Pharmacy: [facility] #[id number], 154.94, cm, 01/18/23 9:56:00 CDT, Height, 112.727, kg, 01/18/23 9:56:00 CDT, Weight gabapentin 2022- Yes See Memoria 300 mg oral 5-09 Instructio l capsule 15:18: ns, 1 cap Ariana nn 00 PO BID and 2 po qhs, # 120 cap, 3 Refill(s), Pharmacy: [facility] #[id number], 154.94, cm, 01/18/23 9:56:00 CDT, Height, 112.727, kg, 01/18/23 9:56:00 CDT, Weight pantoprazol 2023-0 Yes 40mg Take 1 Univ ers e 40 mg EC 5-09 tablet by ity of tablet 13:07: mouth in [place] [address] the Medical morning. Branch pantoprazol 2023-0 Yes 40mg Take 1 Univ ers e 40 mg EC 5-09 tablet by ity of tablet 13:07: mouth in [place] [address] the Medical morning. Branch pantoprazol 2023-0 Yes 40mg Take 1 Univ ers e 40 mg EC 5-09 tablet by ity of tablet 13:07: mouth in [place] [address] the Medical morning. Branch pantoprazol 2023-0 Yes 40mg Take 1 Univ ers e 40 mg EC 5-09 tablet by ity of tablet 13:07: mouth in [place] [address] the Medical morning. Branch pantoprazol 2023-0 Yes 40mg Take 1 Univ ers e 40 mg EC 5-09 tablet by ity of tablet 13:07: mouth in [place] [address] the Medical morning. Branch pantoprazol 2023-0 Yes 40mg Take 1 Univ ers e 40 mg EC 5-09 tablet by ity of tablet 13:07: mouth in [place] [address] the Medical morning. Branch pantoprazol 2023-0 Yes 40mg Take 1 Univ ers e 40 mg EC 5-09 tablet by ity of tablet 13:07: mouth in [place] [address] the Medical morning. Branch pantoprazol 2023-0 Yes 40mg Take 1 Univ ers e 40 mg EC 5-09 tablet by ity of tablet 13:07: mouth in [place] [address] the Medical morning. Branch carvediloL 2023-0 Yes [id number] 12.5mg Take 1 Univers 12.5 mg 5-09 tablet by ity of tablet 00:00: mouth in [address] and 1 tablet in the evening. Take with meals. carvediloL 2023-0 Yes [id number] 12.5mg Take 1 Univers 12.5 mg 5-09 tablet by ity of tablet 00:00: mouth in [address] and 1 tablet in the evening. Take with meals. carvediloL 2023-0 Yes [id number] 12.5mg Take 1 Univers 12.5 mg 5-09 tablet by ity of tablet 00:00: mouth in [address] and 1 tablet in the evening. Take with meals. carvediloL 2023-0 Yes [id number] 12.5mg Take 1 Univers 12.5 mg 5-09 tablet by ity of tablet 00:00: mouth in [address] and 1 tablet in the evening. Take with meals. carvediloL 2023-0 Yes [id number] 12.5mg Take 1 Univers 12.5 mg 5-09 tablet by ity of tablet 00:00: mouth in [address] and 1 tablet in the evening. Take with meals. carvediloL 2023-0 Yes [id number] 12.5mg Take 1 Univers 12.5 mg 5-09 tablet by ity of tablet 00:00: mouth in [address] and 1 tablet in the evening. Take with meals. carvediloL 2023-0 Yes [id number] 12.5mg Take 1 Univers 12.5 mg 5-09 tablet by ity of tablet 00:00: mouth in [address] and 1 tablet in the evening. Take with meals. carvediloL 2023-0 Yes [id number] 12.5mg Take 1 Univers 12.5 mg 5-09 tablet by ity of tablet 00:00: mouth in [address] and 1 tablet in the evening. Take with meals. gabapentin 2023-0 Yes 300 mg = 1 M emoria 300 mg oral 4-26 cap, PO, l capsule 22:18: Bedtime, # Herm [place] 00 30 cap, 3 Refill(s), Pharmacy: [facility] #[id number], 154.94, cm, 01/05/23 16:38:00 CDT, Height, 111.506, kg, 01/05/23 16:38:00 CDT, Weight gabapentin 2023-0 Yes 300 mg = 1 M emoria 300 mg oral 4-26 cap, PO, l capsule 22:18: Bedtime, # Herm s[place] 00 30 cap, 3 Refill(s), Pharmacy: [facility] #[id number], 154.94, cm, 01/05/23 16:38:00 CDT, Height, 111.506, kg, 01/05/23 16:38:00 CDT, Weight gabapentin 2023-0 Yes 300 mg = 1 M emoria 300 mg oral 4-26 cap, PO, l capsule 22:18: Bedtime, # Herm s[place] 00 30 cap, 3 Refill(s), Pharmacy: [facility] #[id number], 154.94, cm, 01/05/23 16:38:00 CDT, Height, 111.506, kg, 01/05/23 16:38:00 CDT, Weight gabapentin 2023-0 Yes 300 mg = 1 M emoria 300 mg oral 4-26 cap, PO, l capsule 22:18: Bedtime, # Herm sienna 00 30 cap, 3 Refill(s), Pharmacy: [facility] #[id number], 154.94, cm, 01/05/23 16:38:00 CDT, Height, 111.506, kg, 01/05/23 16:38:00 CDT, Weight Advil 3-0 Yes PO, Q6H, 0 Memori a 4-26 Refill(s) l 21:41: [place] 00 Advil 2023-0 Yes PO, Q6H, 0 Memori a 4-26 Refill(s) l 21:41: [place] 00 Advil 2023-0 Yes PO, Q6H, 0 Memori a 4-26 Refill(s) l 21:41: [place] 00 Advil 2023-0 Yes PO, Q6H, 0 Memori a 4-26 Refill(s) l 21:41: baclofen 10 2022-0 Yes 10 mg = 1 M emoria mg oral 4-21 tab, PO, l tablet 14:28: TID, # 90 Sherwin n 00 tab, 2 Refill(s), Pharmacy: [id number], 154.94, cm, 12/31/22 9:07:00 CDT, Height, 111.364, kg, 12/31/22 9:07:00 CDT, Weight baclofen 10 2022-0 Yes 10 mg = 1 M emoria mg oral 4-21 tab, PO, l tablet 14:28: TID, # 90 Sherwin n 00 tab, 2 Refill(s), Pharmacy: [id number], 154.94, cm, 12/31/22 9:07:00 CDT, Height, 111.364, kg, 12/31/22 9:07:00 CDT, Weight baclofen 10 2022-0 Yes 10 mg = 1 M emoria mg oral 4-21 tab, PO, l tablet 14:28: TID, # 90 Sherwin n 00 tab, 2 Refill(s), Pharmacy: [id number], 154.94, cm, 12/31/22 9:07:00 CDT, Height, 111.364, kg, 12/31/22 9:07:00 CDT, Weight baclofen 10 3-0 Yes 10 mg = 1 M emoria mg oral 4-21 tab, PO, l tablet 14:28: TID, # 90 Sherwin n 00 tab, 2 Refill(s), Pharmacy: [facility] #[id number], 154.94, cm, 12/31/22 9:07:00 CDT, Height, 111.364, kg, 12/31/22 9:07:00 CDT, Weight clopidogrel 2022-0 Yes TAKE 1 Catrachito darlin 75 mg oral 4-21 TABLET BY l tablet 14:13: MOUTH [place] 00 EVERY DAY MetFORMIN 2022-0 Yes TAKE [...] l oral tablet 14:13: MOUTH IN [place] 00 THE MORNING AND 1 TABLET IN THE EVENING. TAKE WITH MEALS. lisinopril 2022-0 Yes TAKE 1 Memor ia 5 mg oral 4-21 TABLET BY l tablet 14:13: MOUTH IN [place] 00 THE MORNING FOR 90 DAYS. clopidogrel 2022-0 Yes TAKE 1 Catrachito darlin 75 mg oral 4-21 TABLET BY l tablet 14:13: MOUTH [place] 00 EVERY DAY MetFORMIN 2022-0 Yes TAKE 1 Memori a (Eqv-Glucop 4-21 TABLET BY l wilman XR) 14:13: MOUTH [place] 500 mg oral 00 TWICE A tablet, DAY WITH extended MEALS release losartan 25 2022-0 Yes TAKE 1 Catrachito darlin mg oral 4-21 TABLET BY l tablet 14:13: MOUTH [place] 00 EVERY DAY carvedilol 3-0 Yes TAKE 1 Memor ia 12.5 mg 4-21 TABLET BY l oral tablet 14:13: MOUTH IN [place] 00 THE MORNING AND 1 TABLET IN THE EVENING. TAKE WITH MEALS. lisinopril 3-0 Yes TAKE 1 Memor ia 5 mg oral 4-21 TABLET BY l tablet 14:13: MOUTH IN [place] 00 THE MORNING FOR 90 DAYS. clopidogrel 2023-0 Yes TAKE 1 Catrachito darlin 75 mg oral 4-21 TABLET BY l tablet 14:13: MOUTH [place] 00 EVERY DAY MetFORMIN 2022-0 Yes TAKE 1 Memori a (Eqv-Glucop 4-21 TABLET BY l wilman XR) 14:13: MOUTH [place] 500 mg oral 00 TWICE A tablet, DAY WITH extended MEALS release losartan 25 2022-0 Yes TAKE 1 Catrachito darlin mg oral 4-21 TABLET BY l tablet 14:13: MOUTH [place] 00 EVERY DAY carvedilol 3-0 Yes TAKE 1 Memor ia 12.5 mg 4-21 TABLET BY l oral tablet 14:13: MOUTH [place] 00 THE MORNING AND 1 TABLET IN THE EVENING. TAKE WITH MEALS. lisinopril 3-0 Yes TAKE 1 Memor ia 5 mg oral 4-21 TABLET BY l tablet 14:13: MOUTH IN [place] 00 THE MORNING FOR 90 DAYS. clopidogrel 3-0 Yes TAKE 1 Catrachito darlin 75 mg oral 4-21 TABLET BY l tablet 14:13: MOUTH [place] 00 EVERY DAY MetFORMIN 3-0 Yes TAKE 1 Memori a (Eqv-Glucop 4-21 TABLET BY l wilman XR) 14:13: MOUTH [place] 500 mg oral 00 TWICE A tablet, DAY WITH extended MEALS release losartan 25 2022-0 Yes TAKE 1 Catrachito darlin mg oral 4-21 TABLET BY l tablet 14:13: MOUTH [place] 00 EVERY DAY carvedilol 3-0 Yes TAKE 1 Memor ia 12.5 mg 4-21 TABLET BY l oral tablet 14:13: MOUTH [place] 00 THE MORNING AND 1 TABLET IN THE EVENING. TAKE WITH MEALS. lisinopril 3-0 Yes TAKE 1 Memor ia 5 mg oral 4-21 TABLET BY l tablet 14:13: MOUTH IN [place] 00 THE MORNING FOR 90 DAYS. losartan 25 2022-0 Yes 25mg Take 1 Univ ers mg tablet 3-26 tablet by ity o f 00:00: mouth in [place] 00 the Medical morning. Branch losartan 25 3-0 Yes 25mg Take 1 Univ ers mg tablet 3-26 tablet by ity o f 00:00: mouth in [place] 00 the Medical morning. Branch losartan 25 3-0 Yes 25mg Take 1 Univ ers mg tablet 3-26 tablet by ity o f 00:00: mouth in [place] 00 the Medical morning. Branch losartan 25 3-0 Yes 25mg Take 1 Univ ers mg tablet 3-26 tablet by ity o f 00:00: mouth in [place] 00 the Medical morning. Branch losartan 25 2023-0 Yes 25mg Take 1 Univ ers mg tablet 3-26 tablet by ity o f 00:00: mouth in [place] 00 the Medical morning. Branch losartan 25 3-0 Yes 25mg Take 1 Univ ers mg tablet 3-26 tablet by ity o f 00:00: mouth in [place] the Medical morning. Branch losartan 25 3-0 Yes 25mg Take 1 Univ ers mg tablet 3-26 tablet by ity o f 00:00: mouth in [place] 00 the Medical morning. Branch losartan 25 3-0 Yes 25mg Take 1 Univ ers mg tablet 3-26 tablet by ity o f 00:00: mouth in [place] 00 the Medical morning. Branch divalproex 2021- [...] divalproex 2021-09 Yes 500mg Take 500 Un nnado ER 500 mg 0-19 mg by ity [...] divalproex 2021- Yes 500mg Take 500 Un nanod ER 500 mg 0-19 mg by ity [...] divalproex 2021-09 Yes 500mg Take 500 Un anndo ER 500 mg 0-19 mg by ity [...] 00 daily with Medical breakfast. Branch lisinopriL 0 Yes 5mg 5 mg, Univer s (PRINIVIL,Z 9-21 Oral, ity of ESTRIL) 14:00: DAILY, [place] tablet 5 mg 00 First dose Me dical (after Branch last modificati on) on Tue06/02/22 at 0900, Until Discontinu ed, Routine lisinopriL 0 Yes 5mg 5 mg, Univer s (PRINIVIL,Z 9-21 Oral, ity of ESTRIL) 14:00: DAILY, [place] tablet 5 mg 00 First dose Me dical (after Branch last modificati on) on Tue06/02/22 at 0900, Until Discontinu ed, Routine clopidogreL 2022-0 Yes 75mg Take 75 mg Univers 75 mg 9-21 by mouth ity of tablet 00:00: in the [place] 00 morning. Medical Branch clopidogreL 2022-0 Yes 75mg Take 75 mg Univers 75 mg 9-21 by mouth ity of tablet 00:00: in the [place] 00 morning. Medical Branch clopidogreL 2022-0 Yes 75mg Take 75 mg Univers 75 mg 9-21 by mouth ity of tablet 00:00: in the [place] 00 morning. Medical Branch clopidogreL 2022-0 Yes 75mg Take 75 mg Univers 75 mg 9-21 by mouth ity of tablet 00:00: in the [place] morning. Medical Branch clopidogreL 2022-0 Yes 75mg Take 75 mg Univers 75 mg 9-21 by mouth ity of tablet 00:00: in the [place] 00 morning. Medical Branch clopidogreL 2022-0 Yes 75mg Take 75 mg Univers 75 mg 9-21 by mouth ity of tablet 00:00: in the [place] morning. Medical Branch clopidogreL 2022-0 Yes 75mg Take 75 mg Univers 75 mg 9-21 by mouth ity of tablet 00:00: in the [place] 00 morning. Medical Branch clopidogreL 2022-0 Yes 75mg Take 75 mg Univers 75 mg 9-21 by mouth ity of tablet 00:00: in the [place] 00 morning. Medical Branch clopidogreL 2022-0 Yes 75mg Take 75 mg Univers 75 mg 9-21 by mouth ity of tablet 00:00: in the [place] 00 morning. Medical Branch clopidogreL 2022-0 Yes 75mg Take 75 mg Univers 75 mg 9-21 by mouth ity of tablet 00:00: in the [place] 00 morning. Medical Branch clopidogreL 2022-0 Yes 75mg Take 75 mg Univers 75 mg 9-21 by mouth ity of tablet 00:00: in the [place] 00 morning. Medical Branch clopidogreL 2022-0 Yes 75mg Take 75 mg [facility] 75 mg 9-21 by mouth ity of tablet 00:00: in the [place] 00 morning. [facility] Branch clopidogreL 2022-0 Yes 75mg Take 75 mg [facility] 75 mg 9-21 by mouth ity of tablet 00:00: in the [place] 00 morning. [facility] clopidogreL 2022-0 Yes 75mg Take 75 mg [facility] 75 mg 9-21 by mouth ity of tablet 00:00: in the [place] 00 morning. [facility] clopidogreL 2022-0 Yes 75mg Take 75 mg [facility] 75 mg 9-21 by mouth ity of tablet 00:00: in the [place] morning. [facility] Branch clopidogreL 2022-0 Yes 75mg Take 75 mg [facility] 75 mg 9-21 by mouth ity of tablet 00:00: in the [place] 00 morning. [facility] clopidogreL 2022-0 Yes 75mg Take 75 mg [facility] 75 mg 9-21 by mouth ity of tablet 00:00: in the [place] morning. [facility] clopidogreL 2022-0 Yes 75mg Take 75 mg [facility] 75 mg 9-21 by mouth ity of tablet 00:00: in the [place] morning. [facility] clopidogreL 2022-0 Yes 75mg Take 75 mg [facility] 75 mg 9-21 by mouth ity of tablet 00:00: in the [place] 00 morning. [facility] clopidogreL 2022-0 Yes 75mg Take 75 mg [facility] 75 mg 9-21 by mouth ity of tablet 00:00: in the [place] morning. [facility] clopidogreL 2022-0 Yes 75mg Take 75 mg [facility] 75 mg 9-21 by mouth ity of tablet 00:00: in the [place] morning. [facility] clopidogreL 2022-0 Yes 75mg Take 75 mg [facility] 75 mg 9-21 by mouth ity of tablet 00:00: in the [place] morning. [facility] clopidogreL 2022-0 Yes 75mg Take 75 mg [facility] 75 mg 9-21 by mouth ity of tablet 00:00: in the [place] 00 morning. [facility] clopidogreL 2022-0 Yes 75mg Take 75 mg [facility] 75 mg 9-21 by mouth ity of tablet 00:00: in the [place] morning. [facility] clopidogreL 2022-0 Yes 75mg Take 75 mg [facility] 75 mg 9-21 by mouth ity of tablet 00:00: in the [place] 00 morning. [facility] clopidogreL 2022-0 Yes 75mg Take 75 mg [facility] 75 mg 9-21 by mouth ity of tablet 00:00: in the [place] 00 morning. [facility] clopidogreL 2022-0 Yes 75mg Take 75 mg [facility] 75 mg 9-21 by mouth ity of tablet 00:00: in the [place] 00 morning. [facility] clopidogreL 2022-0 Yes 75mg Take 75 mg [facility] 75 mg 9-21 by mouth ity of tablet 00:00: in the [place] 00 morning. [facility] clopidogreL 2022-0 Yes 75mg Take 75 mg [facility] 75 mg 9-21 by mouth ity of tablet 00:00: in the [place] 00 morning. [facility] clopidogreL 2022-0 Yes 75mg Take 75 mg [facility] 75 mg 9-21 by mouth ity of tablet 00:00: in the [place] 00 morning. [facility] clopidogreL 2022-0 Yes 75mg Take 75 mg [facility] 75 mg 9-21 by mouth ity of tablet 00:00: in the [place] 00 morning. [facility] clopidogreL 2022-0 Yes 75mg Take 75 mg [facility] 75 mg 9-21 by mouth ity of tablet 00:00: in the [place] 00 morning. [facility] clopidogreL 2022-0 Yes 75mg Take 75 mg [facility] 75 mg 9-21 by mouth ity of tablet 00:00: in the [place] 00 morning. [facility] clopidogreL 2022-0 Yes 75mg Take 75 mg [facility] 75 mg 9-21 by mouth ity of tablet 00:00: in the [place] 00 morning. [facility] clopidogreL 2022-0 Yes 75mg Take 75 mg [facility] 75 mg 9-21 by mouth ity of tablet 00:00: in the [place] 00 morning. [facility] clopidogreL 2022-0 Yes 75mg Take 75 mg [facility] 75 mg 9-21 by mouth ity of tablet 00:00: in the [place] 00 morning. [facility] clopidogreL 2022-0 Yes 75mg Take 75 mg [facility] 75 mg 9-21 by mouth ity of tablet 00:00: in the [place] 00 morning. [facility] clopidogreL 2022-0 Yes 75mg Take 75 mg [facility] 75 mg 9-21 by mouth ity of tablet 00:00: in the [place] 00 morning. [facility] clopidogreL 2022-0 Yes 75mg Take 75 mg [facility] 75 mg 9-21 by mouth ity of tablet 00:00: in the [place] 00 morning. [facility] clopidogreL 2022-0 Yes 75mg Take 75 mg [facility] 75 mg 9-21 by mouth ity of tablet 00:00: in the [place] 00 morning. [facility] clopidogreL 2022-0 Yes 75mg Take 75 mg [facility] 75 mg 9-21 by mouth ity of tablet 00:00: in the [place] 00 morning. [facility] clopidogreL 2022-0 Yes 75mg Take 75 mg [facility] 75 mg 9-21 by mouth ity of tablet 00:00: in the [place] 00 morning. [facility] clopidogreL 2022-0 Yes 75mg Take 75 mg [facility] 75 mg 9-21 by mouth ity of tablet 00:00: in the [place] 00 morning. [facility] clopidogreL 2022-0 Yes 75mg Take 75 mg [facility] 75 mg 9-21 by mouth ity of tablet 00:00: in the [place] 00 morning. [facility] clopidogreL 2022-0 Yes 75mg Take 75 mg [facility] 75 mg 9-21 by mouth ity of tablet 00:00: in the [place] 00 morning. [facility] clopidogreL 2022-0 Yes 75mg Take 75 mg [facility] 75 mg 9-21 by mouth ity of tablet 00:00: in the [place] 00 morning. [facility] clopidogreL 2022-0 Yes 75mg Take 75 mg [facility] 75 mg 9-21 by mouth ity of tablet 00:00: in the [place] 00 morning. [facility] clopidogreL 2022-0 Yes 75mg Take 75 mg [facility] 75 mg 9-21 by mouth ity of tablet 00:00: in the [place] 00 morning. [facility] clopidogreL 2022-0 Yes 75mg Take 75 mg [facility] 75 mg 9-21 by mouth ity of tablet 00:00: in the [place] 00 morning. [facility] clopidogreL 2022-0 Yes 75mg Take 75 mg [facility] 75 mg 9-21 by mouth ity of tablet 00:00: in the [place] 00 morning. [facility] Branch clopidogreL 2022-0 Yes 75mg Take 75 mg [facility] 75 mg 9-21 by mouth ity of tablet 00:00: in the [place] 00 morning. [facility] clopidogreL 2022-0 Yes 75mg Take 75 mg [facility] 75 mg 9-21 by mouth ity of tablet 00:00: in the [place] 00 morning. [facility] clopidogreL 2022-0 Yes 75mg Take 75 mg [facility] 75 mg 9-21 by mouth ity of tablet 00:00: in the [place] 00 morning. [facility] clopidogreL 2022-0 Yes 75mg Take 75 mg [facility] 75 mg 9-21 by mouth ity of tablet 00:00: in the [place] 00 morning. [facility] Branch clopidogreL 2022-0 Yes 75mg Take 75 mg [facility] 75 mg 9-21 by mouth ity of tablet 00:00: in the [place] 00 morning. [facility] Branch clopidogreL 2022-0 Yes 75mg Take 75 mg [facility] 75 mg 9-21 by mouth ity of tablet 00:00: in the [place] 00 morning. [facility] Branch clopidogreL 2022-0 Yes 75mg Take 75 mg [facility] 75 mg 9-21 by mouth ity of tablet 00:00: in the [place] 00 morning. [facility] clopidogreL 2022-0 Yes 75mg Take 75 mg [facility] 75 mg 9-21 by mouth ity of tablet 00:00: in the [place] 00 morning. [facility] clopidogreL 2022-0 Yes 75mg Take 75 mg [facility] 75 mg 9-21 by mouth ity of tablet 00:00: in the [place] 00 morning. [facility] clopidogreL 2022-0 Yes 75mg Take 75 mg [facility] 75 mg 9-21 by mouth ity of tablet 00:00: in the [place] 00 morning. [facility] clopidogreL 2022-0 Yes 75mg Take 75 mg [facility] 75 mg 9-21 by mouth ity of tablet 00:00: in the [place] 00 morning. [facility] clopidogreL 2022-0 Yes 75mg Take 75 mg [facility] 75 mg 9-21 by mouth ity of tablet 00:00: in the [place] 00 morning. [facility] Branch clopidogreL 2022-0 Yes 75mg Take 75 mg [facility] 75 mg 9-21 by mouth ity of tablet 00:00: in the [place] 00 morning. [facility] clopidogreL 2022-0 Yes 75mg Take 75 mg [facility] 75 mg 9-21 by mouth ity of tablet 00:00: in the [place] 00 morning. [facility] Branch clopidogreL 2022-0 Yes 75mg Take 75 mg [facility] 75 mg 9-21 by mouth ity of tablet 00:00: in the [place] 00 morning. [facility] clopidogreL 2022-0 Yes 75mg Take 75 mg [facility] 75 mg 9-21 by mouth ity of tablet 00:00: in the [place] 00 morning. [facility] clopidogreL 2022-0 Yes 75mg Take 75 mg [facility] 75 mg 9-21 by mouth ity of tablet 00:00: in the [place] 00 morning. [facility] clopidogreL 2022-0 Yes 75mg Take 75 mg [facility] 75 mg 9-21 by mouth ity of tablet 00:00: in the [place] 00 morning. [facility] Branch lisinopriL 2022-0 2022- No [id number] 5mg Take 1 [facility] 5 mg tablet 9-21 12-21 tablet by it y of 00:00: 05:59 mouth in [place] 00 :00 the Medical morning Branch for 90 days. lisinopriL 2022-0 2022- No [id number] 5mg Take 1 [facility] 5 mg tablet 9-21 12-21 tablet by it y of 00:00: 05:59 mouth in [place] 00 :00 the Medical morning Branch for 90 days. lisinopriL 2022-0 2022- No [id number] 5mg Take 1 [facility] 5 mg tablet 9-21 12-21 tablet by it y of 00:00: 05:59 mouth in [place] 00 :00 the Medical morning Branch for 90 days. lisinopriL 2022-0 2022- No [id number] 5mg Take 1 [facility] 5 mg tablet 9-21 12-21 tablet by it y of 00:00: 05:59 mouth in [place] 00 :00 the Medical morning Branch for 90 days. lisinopriL 2022-0 2022- No [id number] 5mg Take 1 [facility] 5 mg tablet 9- 12-21 tablet by it y of 00:00: 05:59 mouth in [place] 00 :00 the Medical morning Branch for 90 days. lisinopriL 2022-0 2022- No [id number] 5mg Take 1 [facility] 5 mg tablet 9- 12-21 tablet by it y of 00:00: 05:59 mouth in [place] 00 :00 the Medical morning Branch for 90 days. lisinopriL 2022-0 2022- No [id number] 5mg Take 1 [facility] 5 mg tablet 9- 12-21 tablet by it y of 00:00: 05:59 mouth in [place] 00 :00 the Medical morning Branch for 90 days. lisinopriL 2022-0 2022- No [id number] 5mg Take 1 [facility] 5 mg tablet 9- 12-21 tablet by it y of 00:00: 05:59 mouth in [place] 00 :00 the Medical morning Branch for 90 days. lisinopriL 2022-0 2022- No [id number] 5mg Take 1 [facility] 5 mg tablet 9- 12-21 tablet by it y of 00:00: 05:59 mouth in [place] 00 :00 the Medical morning Branch for 90 days. lisinopriL 2022-0 2022- No [id number] 5mg Take 1 [facility] 5 mg tablet 9-21 12-21 tablet by it y of 00:00: 05:59 mouth in [place] 00 :00 the Medical morning Branch for 90 days. lisinopriL 2022-0 2022- No [id number] 5mg Take 1 [facility] 5 mg tablet 9-21 12-21 tablet by it y of 00:00: 05:59 mouth in [place] 00 :00 the Medical morning Branch for 90 days. lisinopriL 2022-0 2022- No [id number] 5mg Take 1 [facility] 5 mg tablet 9-21 12-21 tablet by it y of 00:00: 05:59 mouth in [place] 00 :00 the Medical morning Branch for 90 days. lisinopriL 2022-0 2022- No [id number] 5mg Take 1 [facility] 5 mg tablet 9-21 12-21 tablet by it y of 00:00: 05:59 mouth in [place] 00 :00 the Medical morning Branch for 90 days. lisinopriL 2022-0 2022- No [id number] 5mg Take 1 [facility] 5 mg tablet 9-21 12-21 tablet by it y of 00:00: 05:59 mouth in [place] 00 :00 the Medical morning Branch for 90 days. lisinopriL 2022-0 2022- No [id number] 5mg Take 1 [facility] 5 mg tablet 9- 12-21 tablet by it y of 00:00: 05:59 mouth in [place] 00 :00 the Medical morning Branch for 90 days. lisinopriL 2022-0 2022- No [id number] 5mg Take 1 [facility] 5 mg tablet 9- 12-21 tablet by it y of 00:00: 05:59 mouth in [place] 00 :00 the Medical morning Branch for 90 days. lisinopriL 2022-0 2022- No [id number] 5mg Take 1 [facility] 5 mg tablet 9-21 12-21 tablet by it y of 00:00: 05:59 mouth in [place] 00 :00 the Medical morning Branch for 90 days. lisinopriL 2022-0 2022- No [id number] 5mg Take 1 [facility] 5 mg tablet 9-21 12-21 tablet by it y of 00:00: 05:59 mouth in [place] 00 :00 the Medical morning Branch for 90 days. lisinopriL 2022-0 2022- No [id number] 5mg Take 1 [facility] 5 mg tablet 9-21 12-21 tablet by it y of 00:00: 05:59 mouth in [place] 00 :00 the Medical morning Branch for 90 days. lisinopriL 2022-0 2022- No [id number] 5mg Take 1 [facility] 5 mg tablet 9-21 12-21 tablet by it y of 00:00: 05:59 mouth in [place] 00 :00 the Medical morning Branch for 90 days. lisinopriL 2022-0 2022- No [id number] 5mg Take 1 [facility] 5 mg tablet 9-21 12-21 tablet by it y of 00:00: 05:59 mouth in [place] 00 :00 the Medical morning Branch for 90 days. lisinopriL 2022-0 2022- No [id number] 5mg Take 1 [facility] 5 mg tablet 9-21 12-21 tablet by it y of 00:00: 05:59 mouth in [place] 00 :00 the Medical morning Branch for 90 days. lisinopriL 2022-0 2022- No [id number] 5mg Take 1 [facility] 5 mg tablet 9-21 12-21 tablet by it y of 00:00: 05:59 mouth in [place] 00 :00 the Medical morning Branch for 90 days. lisinopriL 2022-0 2022- No [id number] 5mg Take 1 [facility] 5 mg tablet 9-21 12-21 tablet by it y of 00:00: 05:59 mouth in [place] 00 :00 the Medical morning Branch for 90 days. lisinopriL 2022-0 2022- No [id number] 5mg Take 1 [facility] 5 mg tablet 9-21 12-21 tablet by it y of 00:00: 05:59 mouth in [place] 00 :00 the Medical morning Branch for 90 days. lisinopriL 2022-0 2022- No [id number] 5mg Take 1 [facility] 5 mg tablet 9- 12-21 tablet by it y of 00:00: 05:59 mouth in [place] 00 :00 the Medical morning Branch for 90 days. lisinopriL 2022-0 2022- No [id number] 5mg Take 1 [facility] 5 mg tablet 9-21 12-21 tablet by it y of 00:00: 05:59 mouth in [place] 00 :00 the Medical morning Branch for 90 days. lisinopriL 2022-0 2022- No [id number] 5mg Take 1 [facility] 5 mg tablet 9-21 12-21 tablet by it y of 00:00: 05:59 mouth in [place] 00 :00 the Medical morning Branch for 90 days. lisinopriL 2022-0 2022- No [id number] 5mg Take 1 [facility] 5 mg tablet 9-21 12-21 tablet by it y of 00:00: 05:59 mouth in [place] 00 :00 the Medical morning Branch for 90 days. lisinopriL 2022-0 2022- No [id number] 5mg Take 1 [facility] 5 mg tablet 9-21 12-21 tablet by it y of 00:00: 05:59 mouth in [place] 00 :00 the Medical morning Branch for 90 days. lisinopriL 2022-0 2022- No [id number] 5mg Take 1 [facility] 5 mg tablet 9- 12-21 tablet by it y of 00:00: 05:59 mouth in [place] 00 :00 the Medical morning Branch for 90 days. lisinopriL 2022-0 2022- No [id number] 5mg Take 1 [facility] 5 mg tablet 9- 12-21 tablet by it y of 00:00: 05:59 mouth in [place] 00 :00 the Medical morning Branch for 90 days. lisinopriL 2022-0 2022- No [id number] 5mg Take 1 [facility] 5 mg tablet 9- 12-21 tablet by it y of 00:00: 05:59 mouth in [place] 00 :00 the Medical morning Branch for 90 days. lisinopriL 2022-0 2022- No [id number] 5mg Take 1 [facility] 5 mg tablet 9-01 09-21 tablet by it y of 00:00: 05:59 mouth in [place] 00 :00 the Medical morning Branch for 90 days. lisinopriL 2022-0 2022- No [id number] 5mg Take 1 [facility] 5 mg tablet 9-01 09-21 tablet by it y of 00:00: 05:59 mouth in [place] 00 :00 the Medical morning Branch for 90 days. lisinopriL 2022-0 2022- No [id number] 5mg Take 1 [facility] 5 mg tablet 9- 12-21 tablet by it y of 00:00: 05:59 mouth in [place] 00 :00 the Medical morning Branch for 90 days. lisinopriL 2022-0 2022- No [id number] 5mg Take 1 [facility] 5 mg tablet 9- 12-21 tablet by it y of 00:00: 05:59 mouth in [place] 00 :00 the Medical morning Branch for 90 days. lisinopriL 2022-0 2022- No [id number] 5mg Take 1 [facility] 5 mg tablet 9- 12-21 tablet by it y of 00:00: 05:59 mouth in [place] 00 :00 the Medical morning Branch for 90 days. lisinopriL 2022-0 2022- No [id number] 5mg Take 1 [facility] 5 mg tablet 9-21 12-21 tablet by it y of 00:00: 05:59 mouth in [place] 00 :00 the Medical morning Branch for 90 days. lisinopriL 2022-0 2022- No [id number] 5mg Take 1 [facility] 5 mg tablet 9-21 12-21 tablet by it y of 00:00: 05:59 mouth in [place] 00 :00 the Medical morning Branch for 90 days. lisinopriL 2022-0 2022- No [id number] 5mg Take 1 [facility] 5 mg tablet 9-21 12-21 tablet by it y of 00:00: 05:59 mouth in [place] 00 :00 the Medical morning Branch for 90 days. lisinopriL 2022-0 2022- No [id number] 5mg Take 1 [facility] 5 mg tablet 9- 12-21 tablet by it y of 00:00: 05:59 mouth in [place] 00 :00 the Medical morning Branch for 90 days. lisinopriL 2022-0 2022- No [id number] 5mg Take 1 [facility] 5 mg tablet 9- 12-21 tablet by it y of 00:00: 05:59 mouth in [place] 00 :00 the Medical morning Branch for 90 days. lisinopriL 2022-0 2022- No [id number] 5mg Take 1 [facility] 5 mg tablet 9-01 09-21 tablet by it y of 00:00: 05:59 mouth in [place] 00 :00 the Medical morning Branch for 90 days. lisinopriL 2022-0 2022- No [id number] 5mg Take 1 [facility] 5 mg tablet 9- 12-21 tablet by it y of 00:00: 05:59 mouth in [place] 00 :00 the Medical morning Branch for 90 days. lisinopriL 2022-0 2022- No [id number] 5mg Take 1 [facility] 5 mg tablet 9- 12-21 tablet by it y of 00:00: 05:59 mouth in [place] 00 :00 the Medical morning Branch for 90 days. lisinopriL 2022-0 2022- No [id number] 5mg Take 1 [facility] 5 mg tablet 9-21 12-21 tablet by it y of 00:00: 05:59 mouth in [place] 00 :00 the Medical morning Branch for 90 days. lisinopriL 2022-0 2022- No [id number] 5mg Take 1 [facility] 5 mg tablet 9-21 12-21 tablet by it y of 00:00: 05:59 mouth in [place] 00 :00 the Medical morning Branch for 90 days. lisinopriL 2022-0 2022- No [id number] 5mg Take 1 [facility] 5 mg tablet 9-21 12-21 tablet by it y of 00:00: 05:59 mouth in [place] 00 :00 the Medical morning Branch for 90 days. lisinopriL 2022-0 2022- No [id number] 5mg Take 1 [facility] 5 mg tablet 9-21 12-21 tablet by it y of 00:00: 05:59 mouth in [place] 00 :00 the Medical morning Branch for 90 days. lisinopriL 2022-0 2022- No [id number] 5mg Take 1 [facility] 5 mg tablet 9-21 12-21 tablet by it y of 00:00: 05:59 mouth in [place] 00 :00 the Medical morning Branch for 90 days. lisinopriL 2022-0 2022- No [id number] 5mg Take 1 [facility] 5 mg tablet 9- 12-21 tablet by it y of 00:00: 05:59 mouth in [place] 00 :00 the Medical morning Branch for 90 days. lisinopriL 2022-0 2022- No [id number] 5mg Take 1 [facility] 5 mg tablet 9- 12-21 tablet by it y of 00:00: 05:59 mouth in [place] 00 :00 the Medical morning Branch for 90 days. lisinopriL 2022-0 2022- No [id number] 5mg Take 1 [facility] 5 mg tablet 9- 12-21 tablet by it y of 00:00: 05:59 mouth in [place] 00 :00 the Medical morning Branch for 90 days. lisinopriL 2022-0 2022- No [id number] 5mg Take 1 [facility] 5 mg tablet 9-21 12-21 tablet by it y of 00:00: 05:59 mouth in [place] 00 :00 the Medical morning Branch for 90 days. lisinopriL 2022-0 2022- No [id number] 5mg Take 1 [facility] 5 mg tablet 9-21 12-21 tablet by it y of 00:00: 05:59 mouth in [place] 00 :00 the Medical morning Branch for 90 days. lisinopriL 2022-0 2022- No [id number] 5mg Take 1 [facility] 5 mg tablet 9-21 12-21 tablet by it y of 00:00: 05:59 mouth in [place] 00 :00 the Medical morning Branch for 90 days. lisinopriL 2022-0 2022- No [id number] 5mg Take 1 [facility] 5 mg tablet 9- 12-21 tablet by it y of 00:00: 05:59 mouth in [place] 00 :00 the Medical morning Branch for 90 days. lisinopriL 2022-0 2022- No [id number] 5mg Take 1 [facility] 5 mg tablet 9- 12-21 tablet by it y of 00:00: 05:59 mouth in [place] 00 :00 the Medical morning Branch for 90 days. lisinopriL 2022-0 2022- No [id number] 5mg Take 1 [facility] 5 mg tablet 9- 12-21 tablet by it y of 00:00: 05:59 mouth in [place] 00 :00 the Medical morning Branch for 90 days. lisinopriL 2022-0 2022- No [id number] 5mg Take 1 [facility] 5 mg tablet 9- 12-21 tablet by it y of 00:00: 05:59 mouth in [place] 00 :00 the Medical morning Branch for 90 days. lisinopriL 2022-0 2022- No [id number] 5mg Take 1 [facility] 5 mg tablet 9- 12-21 tablet by it y of 00:00: 05:59 mouth in [place] 00 :00 the Medical morning Branch for 90 days. lisinopriL 2022-0 2022- No [id number] 5mg Take 1 [facility] 5 mg tablet 9- 12-21 tablet by it y of 00:00: 05:59 mouth in [place] 00 :00 the Medical morning Branch for 90 days. lisinopriL 2022-0 2022- No [id number] 5mg Take 1 [facility] 5 mg tablet 9- 12-21 tablet by it y of 00:00: 05:59 mouth in [place] 00 :00 the Medical morning Branch for 90 days. lisinopriL 2022-0 2022- No [id number] 5mg Take 1 [facility] 5 mg tablet 9- 12-21 tablet by it y of 00:00: 05:59 mouth in [place] 00 :00 the Medical morning Branch for [...] Medic al 24 hr Branch tablet lisinopriL 0 2021- No 2.5mg 2.5 mg, [facility] (PRINIVIL,Z 06-01 Oral, ity of ESTRIL) 14:00: 16:20 DAILY, [place] tablet 2.5 00 :19 First dose Med ical mg on Tue06/01/22 at 0900, Until Discontinu ed, Routine carvediloL 2021-0 Yes 12.5mg 12.5 mg, U n[facility] (COREG) 9-20 Oral, BID ity of tablet 12.5 13:00: [place] 00 First dose Medical (after Branch last modificati on) on Tue06/01/22 at 0800, Until Discontinu ed, Routine carvediloL 2-0 Yes 12.5mg 12.5 mg, U n[facility] (COREG) 9-20 Oral, BID ity of tablet 12.5 13:00: [place] 00 First dose Medical (after Branch last modificati on) on Tue06/01/22 at 0800, Until Discontinu ed, Routine Pantoprazol 2021-0 2022- No 80mg Take 80 mg [facility] e 06-01 by mouth ity of (PROTONIX) 11:22: [place] 33 :00 morning. Medical delayed-rel Branch ease suspension Pantoprazol 0 2021- No 80mg Take 80 mg [facility] e 06-01 by mouth ity of (PROTONIX) 11:22: [place] 33 :00 morning. Medical delayed-rel Branch ease suspension divalproex 2021-0 Yes 500mg Take 500 [facility] 9-20 mg by ity of (DEPAKOTE [facility] 30 bedtime. Medic al 24 hr Branch tablet melatonin 2021- No 6mg 6 mg, Un[facility] s (MELATIN) 06-01 Oral, ity of tablet 6 mg 05:55: 05:55 ONCE, 1 [place] 00 :[place] dose, On [facility] 06/01/22 at 0100, Routine atorvastati 2021-0 Yes 80mg 80 mg, Univ ers n (LIPITOR) 9-20 Oral, QHS, it y of tablet 80 02:00: First dose [place] mg 00 (after Medical last Branch modificati on) on [facility] 05/31/22 at 2100, Until Discontinu ed, Routine atorvastati 2021-0 Yes 80mg 80 mg, Univ ers n (LIPITOR) 9-20 Oral, QHS, it y of tablet 80 02:00: First dose [place] mg 00 (after Medical last Branch modificati on) on [facility] 05/31/22 at 2100, Until Discontinu ed, Routine ticagrelor 2021-0 Yes 90mg 90 mg, Unive rs (BRILINTA) 9-20 Oral, BID, ity of tablet 90 01:00: First dose [place] mg 00 on [facility] 05/31/22 at [place] 1999, Until Discontinu ed, Routine, CV Recovery to Floor pantoprazol 2021-0 Yes 40mg 40 mg, Univ ers e 9-20 Oral, BID, ity of (PROTONIX) 01:00: First dose [place] tablet 00 on [facility] 40 mg 05/31/22 at Branch 1999, Until Discontinu ed, Routine ticagrelor 2021-0 Yes 90mg 90 mg, Un[facility] rs (BRILINTA) 9-20 Oral, BID, ity of tablet 90 01:00: First dose [place] mg 00 on Mon Medical 05/31/22 at [place] 1999, Until Discontinu ed, Routine, CV Recovery to Floor pantoprazol Yes 40mg 40 mg, Univ ers e 9-20 Oral, BID, ity of (PROTONIX) 01:00: First dose [place] tablet 00 on [facility] Medical 40 mg 05/31/22 at [place] 1999, Until Discontinu ed, Routine aspirin 81 2022- No [id number] 81mg Take 1 [facility] mg chewable -01 06-16 tablet by it y of tablet 00:00: 04:59 mouth [place] 00 :00 daily with Medical breakfast [place] for 360 days. atorvastati 2022- No [id number] 80mg Take 1 [facility] n 80 mg -01 06-16 tablet by ity of tablet 00:00: 04:59 mouth at [place] 00 :00 bedtime Medical for 360 Branch days. aspirin 81 2022- No [id number] 81mg Take 1 [facility] mg chewable -01 06-16 tablet by it y of tablet 00:00: 04:59 mouth [place] 00 :00 daily with Medical breakfast [place] for 360 days. atorvastati 2022- No [id number] 80mg Take 1 [facility] n 80 mg -01 06-16 tablet by ity of tablet 00:00: 04:59 mouth at [place] 00 :00 bedtime Medical for 360 Branch days. aspirin 81 2022- No [id number] 81mg Take 1 [facility] mg chewable -01 06-16 tablet by it y of tablet 00:00: 04:59 mouth [place] 00 :00 daily with Medical breakfast Branch for 360 days. atorvastati 2022- No [id number] 80mg Take 1 [facility] n 80 mg -01 06-16 tablet by ity of tablet 00:00: 04:59 mouth at [place] 00 :00 bedtime Medical for 360 Branch days. aspirin 81 2022- No [id number] 81mg Take 1 [facility] mg chewable -01 06-16 tablet by it y of tablet 00:00: 04:59 mouth [place] 00 :00 daily with Medical breakfast Branch for 360 days. atorvastati 2022- No [id number] 80mg Take 1 [facility] n 80 mg 9-20 -16 tablet by ity of tablet 00:00: 04:59 mouth at [place] 00 :00 bedtime Medical for 360 Branch days. aspirin 81 2022- No [id number] 81mg Take 1 [facility] mg chewable 9-20 -16 tablet by it y of tablet 00:00: 04:59 mouth [place] 00 :00 daily with Medical breakfast Branch for 360 days. atorvastati 2022- No [id number] 80mg Take 1 [facility] n 80 mg 9-20 -16 tablet by ity of tablet 00:00: 04:59 mouth at [place] 00 :00 bedtime Medical for 360 Branch days. aspirin 81 2022- No [id number] 81mg Take 1 [facility] mg chewable 9-20 -16 tablet by it y of tablet 00:00: 04:59 mouth [place] 00 :00 daily with Medical breakfast Branch for 360 days. atorvastati 2022- No [id number] 80mg Take 1 [facility] n 80 mg 9-20 -16 tablet by ity of tablet 00:00: 04:59 mouth at [place] 00 :00 bedtime Medical for 360 Branch days. aspirin 81 2022- No [id number] 81mg Take 1 [facility] mg chewable 9-20 -16 tablet by it y of tablet 00:00: 04:59 mouth [place] 00 :00 daily with Medical breakfast Branch for 360 days. atorvastati 2022- No [id number] 80mg Take 1 [facility] n 80 mg 9-20 -16 tablet by ity of tablet 00:00: 04:59 mouth at [place] 00 :00 bedtime Medical for 360 Branch days. aspirin 81 2022- No [id number] 81mg Take 1 [facility] mg chewable 9-20 -16 tablet by it y of tablet 00:00: 04:59 mouth [place] 00 :00 daily with Medical breakfast Branch for 360 days. atorvastati 2022- No [id number] 80mg Take 1 [facility] n 80 mg 9-20 -16 tablet by ity of tablet 00:00: 04:59 mouth at [place] 00 :00 bedtime Medical for 360 Branch days. aspirin 81 2022- No [id number] 81mg Take 1 [facility] 9-[facility] -16 tablet by [facility] tablet 00:00: 04:59 mouth [place] 00 :00 daily with Medical breakfast Branch for 360 days. atorvastati 2022- No [id number] 80mg Take 1 [facility] 80 mg 9-01 06-16 tablet by [facility] tablet 00:00: 04:59 mouth at [place] 00 :00 bedtime Medical for 360 Branch days. aspirin 81 2022- No [id number] 81mg Take 1 [facility] che[facility] 9-20 -16 tablet by [facility] tablet 00:00: 04:59 mouth [place] 00 :00 daily with Medical breakfast Branch for 360 days. atorvastati 2022- No [id number] 80mg Take 1 [facility] 80 mg 9-01 06-16 tablet by [facility] tablet 00:00: 04:59 mouth at [place] 00 :00 bedtime Medical for 360 Branch days. aspirin 81 2022- No [id number] 81mg Take 1 [facility] chewable -01 06-16 tablet by [facility] tablet 00:00: 04:59 mouth [place] 00 :00 daily with Medical breakfast Branch for 360 days. atorvastati 2022- No [id number] 80mg Take 1 [facility] n 80 mg -01 06-16 tablet by [facility] tablet 00:00: 04:59 mouth at [place] 00 :00 bedtime Medical for 360 Branch days. aspirin 81 2022- No [id number] 81mg Take 1 [facility] chewable -01 06-16 tablet by [facility] tablet 00:00: 04:59 mouth [place] 00 :00 daily with Medical breakfast Branch for 360 days. atorvastati 2022- No [id number] 80mg Take 1 [facility] 80 mg 9-01 06-16 tablet by [facility] tablet 00:00: 04:59 mouth at [place] 00 :00 bedtime Medical for 360 Branch days. aspirin 81 2022- No [id number] 81mg Take 1 [facility] chewable 9-20 -16 tablet by [facility] tablet 00:00: 04:59 mouth [place] 00 :00 daily with Medical breakfast Branch for 360 days. atorvastati 2022- No [id number] 80mg Take 1 [facility] 80 mg 9-20 -16 tablet by [facility] tablet 00:00: 04:59 mouth at [place] 00 :00 bedtime Medical for 360 Branch days. aspirin 81 2022- No [id number] 81mg Take 1 [facility] chewable 9-20 -16 tablet by [facility] tablet 00:00: 04:59 mouth [place] 00 :00 daily with Medical breakfast Branch for 360 days. atorvastati 2022- No [id number] 80mg Take 1 [facility] 80 mg 9-20 -16 tablet by [facility] tablet 00:00: 04:59 mouth at [place] 00 :00 bedtime Medical for 360 Branch days. aspirin 81 2022- No [id number] 81mg Take 1 [facility] chewable 9-20 -16 tablet by [facility] tablet 00:00: 04:59 mouth [place] 00 :00 daily with Medical breakfast Branch for 360 days. atorvastati 2022- No [id number] 80mg Take 1 [facility] 80 mg 9-20 -16 tablet by [facility] tablet 00:00: 04:59 mouth at [place] 00 :00 bedtime Medical for 360 Branch days. aspirin 81 2022- No [id number] 81mg Take 1 [facility] chewable 9-20 -16 tablet by [facility] tablet 00:00: 04:59 mouth [place] 00 :00 daily with Medical breakfast Branch for 360 days. atorvastati 2022- No [id number] 80mg Take 1 [facility] 80 mg 9-20 -16 tablet by [facility] tablet 00:00: 04:59 mouth at [place] 00 :00 bedtime Medical for 360 Branch days. aspirin 81 2022- No [id number] 81mg Take 1 [facility] chewable 9-20 -16 tablet by [facility] tablet 00:00: 04:59 mouth [place] 00 :00 daily with Medical breakfast Branch for 360 days. atorvastati 2022- No [id number] 80mg Take 1 [facility] 80 mg 9-20 -16 tablet by [facility] tablet 00:00: 04:59 mouth at [place] 00 :00 bedtime Medical for 360 Branch days. aspirin 81 2022- No [id number] 81mg Take 1 [facility] chewable 9-20 -16 tablet by [facility] of tablet 00:00: 04:59 mouth [place] 00 :00 daily with Medical breakfast Branch for 360 days. atorvastati 2022- No [id number] 80mg Take 1 [facility] 80 mg 9-20 -16 tablet by [facility] tablet 00:00: 04:59 mouth at [place] 00 :00 bedtime Medical for 360 Branch days. aspirin 81 2022- No [id number] 81mg Take 1 [facility] chewable 9-20 -16 tablet by [facility] of tablet 00:00: 04:59 mouth [place] 00 :00 daily with Medical breakfast Branch for 360 days. atorvastati 2022- No [id number] 80mg Take 1 [facility] 80 mg 9-20 -16 tablet by [facility] tablet 00:00: 04:59 mouth at [place] 00 :00 bedtime Medical for 360 Branch days. aspirin 81 2022- No [id number] 81mg Take 1 [facility] chewable 9-20 -16 tablet by [facility] tablet 00:00: 04:59 mouth [place] 00 :00 daily with Medical breakfast Branch for 360 days. atorvastati 2022- No [id number] 80mg Take 1 [facility] 80 mg 9-20 -16 tablet by [facility] tablet 00:00: 04:59 mouth at [place] 00 :00 bedtime Medical for 360 Branch days. aspirin 81 2022- No [id number] 81mg Take 1 [facility] chewable 9-20 -16 tablet by [facility] tablet 00:00: 04:59 mouth [place] 00 :00 daily with Medical breakfast Branch for 360 days. atorvastati 2022- No [id number] 80mg Take 1 [facility] 80 mg 9-20 -16 tablet by [facility] tablet 00:00: 04:59 mouth at [place] 00 :00 bedtime Medical for 360 Branch days. aspirin 81 2022- No [id number] 81mg Take 1 [facility] chewable 9-20 -16 tablet by [facility] of tablet 00:00: 04:59 mouth [place] 00 :00 daily with Medical breakfast Branch for 360 days. atorvastati 2022- No [id number] 80mg Take 1 [facility] n 80 mg 9-20 -16 tablet by [facility] tablet 00:00: 04:59 mouth at [place] 00 :00 bedtime Medical for 360 Branch days. aspirin 81 2022- No [id number] 81mg Take 1 [facility] chewable 9-20 09-16 tablet by [facility] of tablet 00:00: 04:59 mouth [place] 00 :00 daily with Medical breakfast Branch for 360 days. atorvastati 2022- No [id number] 80mg Take 1 [facility] 80 mg 9-20 -16 tablet by [facility] tablet 00:00: 04:59 mouth at [place] 00 :00 bedtime Medical for 360 Branch days. aspirin 81 2022- No [id number] 81mg Take 1 [facility] chewable 9-20 -16 tablet by [facility] tablet 00:00: 04:59 mouth [place] 00 :00 daily with Medical breakfast Branch for 360 days. atorvastati 2022- No [id number] 80mg Take 1 [facility] n 80 mg 9-20 -16 tablet by [facility] tablet 00:00: 04:59 mouth at [place] 00 :00 bedtime Medical for 360 Branch days. aspirin 81 2022- No [id number] 81mg Take 1 [facility] chewable 9-20 -16 tablet by [facility] tablet 00:00: 04:59 mouth [place] 00 :00 daily with Medical breakfast Branch for 360 days. atorvastati 2022- No [id number] 80mg Take 1 [facility] 80 mg 9-20 -16 tablet by [facility] tablet 00:00: 04:59 mouth at [place] 00 :00 bedtime Medical for 360 Branch days. aspirin 81 2022- No [id number] 81mg Take 1 [facility] chewable 9-20 -16 tablet by [facility] of tablet 00:00: 04:59 mouth [place] 00 :00 daily with Medical breakfast Branch for 360 days. atorvastati 2022- No [id number] 80mg Take 1 [facility] n 80 mg 9-20 09-16 tablet by [facility] tablet 00:00: 04:59 mouth at [place] 00 :00 bedtime Medical for 360 Branch days. aspirin 81 2022- No [id number] 81mg Take 1 [facility] chewable 9-20 09-16 tablet by [facility] tablet 00:00: 04:59 mouth [place] 00 :00 daily with Medical breakfast Branch for 360 days. atorvastati 2022- No [id number] 80mg Take 1 [facility] n 80 mg 9-20 -16 tablet by [facility] tablet 00:00: 04:59 mouth at [place] 00 :00 bedtime Medical for 360 Branch days. aspirin 81 2022- No [id number] 81mg Take 1 [facility] chewable 9-20 -16 tablet by [facility] of tablet 00:00: 04:59 mouth [place] 00 :00 daily with Medical breakfast Branch for 360 days. atorvastati 2022- No [id number] 80mg Take 1 [facility] n 80 mg 9-20 -16 tablet by [facility] tablet 00:00: 04:59 mouth at [place] 00 :00 bedtime Medical for 360 Branch days. aspirin 81 2022- No [id number] 81mg Take 1 [facility] chewable 9-20 -16 tablet by [facility] of tablet 00:00: 04:59 mouth [place] 00 :00 daily with Medical breakfast Branch for 360 days. atorvastati 2022- No [id number] 80mg Take 1 [facility] n 80 mg 9-20 -16 tablet by [facility] tablet 00:00: 04:59 mouth at [place] 00 :00 bedtime Medical for 360 Branch days. aspirin 81 2022- No [id number] 81mg Take 1 [facility] chewable 9-20 -16 tablet by [facility] of tablet 00:00: 04:59 mouth [place] 00 :00 daily with Medical breakfast Branch for 360 days. atorvastati 3- No [id number] 80mg Take 1 [facility] n 80 mg 9-20 -16 tablet by [facility] tablet 00:00: 04:59 mouth at [place] 00 :00 bedtime Medical for 360 Branch days. aspirin 81 3- No [id number] 81mg Take 1 [facility] chewable 9-20 -16 tablet by [facility] of tablet 00:00: 04:59 mouth [place] 00 :00 daily with Medical breakfast Branch for 360 days. atorvastati 3- No [id number] 80mg Take 1 [facility] n 80 mg 9-20 -16 tablet by [facility] tablet 00:00: 04:59 mouth at [place] 00 :00 bedtime Medical for 360 Branch days. aspirin 81 2021-2022- No [id number] 81mg Take 1 [facility] chewable 9-20 09-16 tablet by [facility] of tablet 00:00: 04:59 mouth [place] 00 :00 daily with Medical breakfast [place] for 360 days. atorvastati 2021-3- No [id number] 80mg Take 1 [facility] n 80 mg 9-20 09-16 tablet by [facility] tablet 00:00: 04:59 mouth at [place] 00 :00 bedtime Medical for 360 Branch days. ticagrelor 2021-3- No [id number] 90mg Take 1 [facility] 90 mg 9-20 09-16 tablet by [facility] tablet 00:00: 04:59 mouth in [place] 00 :00 the Medical morning Branch and 1 tablet in the evening. Do all this for 360 days. aspirin 81 2022- No [id number] 81mg Take 1 [facility] chewable 9-20 -16 tablet by [facility] of tablet 00:00: 04:59 mouth [place] 00 :00 daily with Medical breakfast [place] for 360 days. atorvastati 3- No [id number] 80mg Take 1 [facility] n 80 mg 9-20 -16 tablet by [facility] tablet 00:00: 04:59 mouth at [place] 00 :00 bedtime Medical for 360 Branch days. ticagrelor 2021-3- No [id number] 90mg Take 1 [facility] 90 mg 9-20 09-16 tablet by [facility] tablet 00:00: 04:59 mouth in [place] 00 :00 the Medical morning Branch and 1 tablet in the evening. Do all this for 360 days. aspirin 81 3- No [id number] 81mg Take 1 [facility] mg chewable 9-20 09-16 tablet by [facility] of tablet 00:00: 04:59 mouth [place] 00 :00 daily with Medical breakfast [place] for 360 days. atorvastati 2021-0 3- No [id number] 80mg Take 1 [facility] n 80 mg 9-20 09-16 tablet by [facility] tablet 00:00: 04:59 mouth at [place] 00 :00 bedtime Medical for 360 Branch days. ticagrelor 2021-0 3- No [id number] 90mg Take 1 [facility] 90 mg 9-20 09-16 tablet by [facility] of tablet 00:00: 04:59 mouth in [place] 00 :00 the Medical morning Branch and 1 tablet in the evening. Do all this for 360 days. aspirin 81 2021-2022- No [id number] 81mg Take 1 [facility] mg chewable 9-20 09-16 tablet by [facility] of tablet 00:00: 04:59 mouth [place] 00 :00 daily with Medical breakfast Branch for 360 days. atorvastati 2021-2022- No [id number] 80mg Take 1 [facility] n 80 mg 9-20 09-16 tablet by [facility] tablet 00:00: 04:59 mouth at [place] 00 :00 bedtime Medical for 360 Branch days. ticagrelor 2021-0 2022- No [id number] 90mg Take 1 [facility] 90 mg 9-20 09-16 tablet by [facility] of tablet 00:00: 04:59 mouth in [place] 00 :00 the Medical morning Branch and 1 tablet in the evening. Do all this for 360 days. aspirin 81 2022- No [id number] 81mg Take 1 [facility] mg chewable 9-20 09-16 tablet by [facility] of tablet 00:00: 04:59 mouth [place] 00 :00 daily with Medical breakfast [place] for 360 days. atorvastati 2021-3- No [id number] 80mg Take 1 [facility] n 80 mg 9-20 09-16 tablet by [facility] of tablet 00:00: 04:59 mouth at [place] 00 :00 bedtime Medical for 360 Branch days. ticagrelor 2021-2022- No [id number] 90mg Take 1 [facility] 90 mg 9-20 09-16 tablet by [facility] of tablet 00:00: 04:59 mouth in [place] 00 :00 the Medical morning Branch and 1 tablet in the evening. Do all this for 360 days. aspirin 81 2021-3- No [id number] 81mg Take 1 [facility] mg chewable 9-20 09-16 tablet by [facility] of tablet 00:00: 04:59 mouth [place] 00 :00 daily with Medical breakfast [place] for 360 days. atorvastati 2021-0 3- No [id number] 80mg Take 1 [facility] n 80 mg 9-20 09-16 tablet by [facility] of tablet 00:00: 04:59 mouth at [place] 00 :00 bedtime Medical for 360 Branch days. ticagrelor 2022- No [id number] 90mg Take 1 [facility] 90 mg 9-20 09-16 tablet by [facility] of tablet 00:00: 04:59 mouth in [place] 00 :00 the Medical morning Branch and 1 tablet in the evening. Do all this for 360 days. aspirin 81 3- No [id number] 81mg Take 1 [facility] mg chewable 9-20 09-16 tablet by [facility] of tablet 00:00: 04:59 mouth [place] 00 :00 daily with Medical breakfast Branch for 360 days. atorvastati 2022- No [id number] 80mg Take 1 [facility] n 80 mg 9-20 09-16 tablet by [facility] of tablet 00:00: 04:59 mouth at [place] 00 :00 bedtime Medical for 360 Branch days. aspirin 81 2022- No [id number] 81mg Take 1 [facility] mg chewable 9-20 09-16 tablet by [facility] of tablet 00:00: 04:59 mouth [place] 00 :00 daily with Medical breakfast Branch for 360 days. atorvastati 2022- No [id number] 80mg Take 1 [facility] n 80 mg 9-20 09-16 tablet by [facility] of tablet 00:00: 04:59 mouth at [place] 00 :00 bedtime Medical for 360 Branch days. aspirin 81 2022- No [id number] 81mg Take 1 [facility] mg chewable 9-20 09-16 tablet by [facility] of tablet 00:00: 04:59 mouth [place] 00 :00 daily with Medical breakfast Branch for 360 days. atorvastati 3- No [id number] 80mg Take 1 [facility] n 80 mg 9-20 09-16 tablet by [facility] of tablet 00:00: 04:59 mouth at [place] 00 :00 bedtime Medical for 360 Branch days. aspirin 81 2021-3- No [id number] 81mg Take 1 [facility] mg chewable 9-20 09-16 tablet by [facility] of tablet 00:00: 04:59 mouth [place] 00 :00 daily with Medical breakfast Branch for 360 days. atorvastati 2021-3- No [id number] 80mg Take 1 [facility] n 80 mg 9-20 09-16 tablet by [facility] of tablet 00:00: 04:59 mouth at [place] 00 :00 bedtime Medical for 360 Branch days. aspirin 81 2022- No [id number] 81mg Take 1 [facility] mg chewable 9-20 09-16 tablet by [facility] of tablet 00:00: 04:59 mouth [place] 00 :00 daily with Medical breakfast Branch for 360 days. atorvastati 2022- No [id number] 80mg Take 1 [facility] n 80 mg 9-20 -16 tablet by [facility] of tablet 00:00: 04:59 mouth at [place] 00 :00 bedtime Medical for 360 Branch days. aspirin 81 2022- No [id number] 81mg Take 1 [facility] mg chewable 9-20 -16 tablet by [facility] of tablet 00:00: 04:59 mouth [place] 00 :00 daily with Medical breakfast Branch for 360 days. atorvastati 2022- No [id number] 80mg Take 1 [facility] n 80 mg 9-20 -16 tablet by [facility] of tablet 00:00: 04:59 mouth at [place] 00 :00 bedtime Medical for 360 Branch days. aspirin 81 2022- No [id number] 81mg Take 1 [facility] mg chewable 9-20 -16 tablet by it [facility] of tablet 00:00: 04:59 mouth [place] 00 :00 daily with Medical breakfast Branch for 360 days. atorvastati 2022- No [id number] 80mg Take 1 [facility] n 80 mg 9-20 -16 tablet by [facility] of tablet 00:00: 04:59 mouth at [place] 00 :00 bedtime Medical for 360 Branch days. aspirin 81 3- No [id number] 81mg Take 1 [facility] mg chewable 9-20 -16 tablet by it [facility] of tablet 00:00: 04:59 mouth [place] 00 :00 daily with Medical breakfast Branch for 360 days. atorvastati 3- No [id number] 80mg Take 1 [facility] n 80 mg 9-20 -16 tablet by [facility] of tablet 00:00: 04:59 mouth at [place] 00 :00 bedtime Medical for 360 Branch days. aspirin 81 2022- No [id number] 81mg Take 1 [facility] mg chewable 9-20 -16 tablet by [facility] of tablet 00:00: 04:59 mouth [place] 00 :00 daily with Medical breakfast Branch for 360 days. atorvastati 2022- No [id number] 80mg Take 1 [facility] n 80 mg 9-20 -16 tablet by [facility] of tablet 00:00: 04:59 mouth at [place] 00 :00 bedtime Medical for 360 Branch days. aspirin 81 2022- No [id number] 81mg Take 1 [facility] mg chewable 9-20 -16 tablet by it y of tablet 00:00: 04:59 mouth [place] 00 :00 daily with Medical [facility] for 360 days. atorvastati 2022- No [id number] 80mg Take 1 [facility] n 80 mg 9-20 -16 tablet by it[facility] of tablet 00:00: 04:59 mouth at [place] 00 :00 bedtime Medical for 360 Branch days. aspirin 81 2022- No [id number] 81mg Take 1 [facility] mg chewable 9-20 -16 tablet by it y of tablet 00:00: 04:59 mouth [place] 00 :00 daily with Medical [facility] for 360 days. atorvastati 2022- No [id number] 80mg Take 1 [facility] n 80 mg 9-20 -16 tablet by it[facility] of tablet 00:00: 04:59 mouth at [place] 00 :00 bedtime Medical for 360 Branch days. aspirin 81 2022- No [id number] 81mg Take 1 [facility] mg chewable 9-20 -16 tablet by it y of tablet 00:00: 04:59 mouth [place] 00 :00 daily with Medical [facility] for 360 days. atorvastati 2022- No [id number] 80mg Take 1 [facility] n 80 mg 9-20 -16 tablet by it[facility] of tablet 00:00: 04:59 mouth at [place] 00 :00 bedtime Medical for 360 Branch days. aspirin 81 3- No [id number] 81mg Take 1 [facility] mg chewable 9-20 -16 tablet by it y of tablet 00:00: 04:59 mouth [place] 00 :00 daily with Medical breakfast [place] for 360 days. atorvastati 2022- No [id number] 80mg Take 1 [facility] n 80 mg 9-20 -16 tablet by it[facility] of tablet 00:00: 04:59 mouth at [place] 00 :00 bedtime Medical for 360 Branch days. aspirin 81 2022- No [id number] 81mg Take 1 [facility] mg chewable 9-20 -16 tablet by it y of tablet 00:00: 04:59 mouth [place] 00 :00 daily with Medical breakfast Branch for 360 days. atorvastati 2022- No [id number] 80mg Take 1 [facility] n 80 mg 9-20 -16 tablet by [facility] of tablet 00:00: 04:59 mouth at [place] 00 :00 bedtime Medical for 360 Branch days. aspirin 81 2022- No [id number] 81mg Take 1 [facility] mg chewable 9-20 -16 tablet by it [facility] of tablet 00:00: 04:59 mouth [place] 00 :00 daily with Medical breakfast Branch for 360 days. atorvastati 2022- No [id number] 80mg Take 1 [facility] n 80 mg 9-20 -16 tablet by it[facility] of tablet 00:00: 04:59 mouth at [place] 00 :00 bedtime Medical for 360 Branch days. aspirin 81 2022- No [id number] 81mg Take 1 [facility] mg chewable 9-20 -16 tablet by it [facility] of tablet 00:00: 04:59 mouth [place] 00 :00 daily with Medical breakfast Branch for 360 days. atorvastati 2022- No [id number] 80mg Take 1 [facility] n 80 mg 9-20 -16 tablet by [facility] of tablet 00:00: 04:59 mouth at [place] 00 :00 bedtime Medical for 360 Branch days. aspirin 81 2022- No [id number] 81mg Take 1 [facility] mg chewable 9-20 -16 tablet by it y of tablet 00:00: 04:59 mouth [place] 00 :00 daily with Medical breakfast Branch for 360 days. atorvastati 2022- No [id number] 80mg Take 1 [facility] n 80 mg 9-20 -16 tablet by [facility] of tablet 00:00: 04:59 mouth at [place] 00 :00 bedtime Medical for 360 Branch days. aspirin 81 2022- No [id number] 81mg Take 1 [facility] mg chewable 9-20 -16 tablet by it [facility] of tablet 00:00: 04:59 mouth [place] 00 :00 daily with Medical breakfast Branch for 360 days. atorvastati 2022- No [id number] 80mg Take 1 [facility] n 80 mg 9-20 -16 tablet by [facility] of tablet 00:00: 04:59 mouth at [place] 00 :00 bedtime Medical for 360 Branch days. aspirin 81 2022- No [id number] 81mg Take 1 [facility] mg chewable 9-20 -16 tablet by it y of tablet 00:00: 04:59 mouth [place] 00 :00 daily with Medical breakfast Branch for 360 days. atorvastati 2022- No [id number] 80mg Take 1 [facility] n 80 mg 9-20 -16 tablet by [facility] of tablet 00:00: 04:59 mouth at [place] 00 :00 bedtime Medical for 360 Branch days. aspirin 81 2022- No [id number] 81mg Take 1 [facility] mg chewable 9-20 -16 tablet by it y of tablet 00:00: 04:59 mouth [place] 00 :00 daily with Medical breakfast Branch for 360 days. atorvastati 2022- No [id number] 80mg Take 1 [facility] n 80 mg 9-20 -16 tablet by [facility] of tablet 00:00: 04:59 mouth at [place] 00 :00 bedtime Medical for 360 Branch days. aspirin 81 2022- No [id number] 81mg Take 1 [facility] mg chewable 9-20 -16 tablet by it y of tablet 00:00: 04:59 mouth [place] 00 :00 daily with Medical breakfast Branch for 360 days. atorvastati 2022- No [id number] 80mg Take 1 [facility] n 80 mg 9-20 -16 tablet by it[facility] of tablet 00:00: 04:59 mouth at [place] 00 :00 bedtime Medical for 360 Branch days. aspirin 81 2022- No [id number] 81mg Take 1 [facility] mg chewable 9-20 -16 tablet by it y of tablet 00:00: 04:59 mouth [place] 00 :00 daily with Medical breakfast Branch for 360 days. atorvastati 2022- No [id number] 80mg Take 1 [facility] n 80 mg 9-20 -16 tablet by ity of tablet 00:00: 04:59 mouth at [place] 00 :00 bedtime Medical for 360 Branch days. aspirin 81 2022- No [id number] 81mg Take 1 [facility] mg chewable 9-20 -16 tablet by it y of tablet 00:00: 04:59 mouth [place] 00 :00 daily with Medical breakfast Branch for 360 days. atorvastati 2022- No [id number] 80mg Take 1 [facility] n 80 mg 9-01 06-16 tablet by it[facility] of tablet 00:00: 04:59 mouth at [place] 00 :00 bedtime Medical for 360 Branch days. aspirin 81 2022- No [id number] 81mg Take 1 [facility] mg chewable 9-20 -16 tablet by it y of tablet 00:00: 04:59 mouth [place] 00 :00 daily with Medical breakfast Branch for 360 days. atorvastati 2022- No [id number] 80mg Take 1 [facility] n 80 mg 9-01 06-16 tablet by it[facility] of tablet 00:00: 04:59 mouth at [place] 00 :00 bedtime Medical for 360 Branch days. aspirin 81 2022- No [id number] 81mg Take 1 [facility] mg chewable -01 06-16 tablet by it y of tablet 00:00: 04:59 mouth [place] 00 :00 daily with Medical breakfast Branch for 360 days. atorvastati 2022- No [id number] 80mg Take 1 [facility] n 80 mg -01 06-16 tablet by it[facility] of tablet 00:00: 04:59 mouth at [place] 00 :00 bedtime Medical for 360 Branch days. aspirin 81 2022- No [id number] 81mg Take 1 [facility] mg chewable -01 06-16 tablet by it y of tablet 00:00: 04:59 mouth [place] 00 :00 daily with Medical breakfast Branch for 360 days. atorvastati 2022- No [id number] 80mg Take 1 [facility] n 80 mg 9-01 06-16 tablet by it[facility] of tablet 00:00: 04:59 mouth at [place] 00 :00 bedtime Medical for 360 Branch days. aspirin 81 2022- No [id number] 81mg Take 1 [facility] mg chewable 9-20 -16 tablet by it y of tablet 00:00: 04:59 mouth [place] 00 :00 daily with Medical breakfast Branch for 360 days. atorvastati 2022- No [id number] 80mg Take 1 [facility] n 80 mg 9-20 -16 tablet by it[facility] of tablet 00:00: 04:59 mouth at [place] 00 :00 bedtime Medical for 360 Branch days. aspirin 81 2022- No [id number] 81mg Take 1 [facility] mg chewable 9-20 -16 tablet by it y of tablet 00:00: 04:59 mouth [place] 00 :00 daily with Medical breakfast Branch for 360 days. atorvastati 2022- No [id number] 80mg Take 1 [facility] n 80 mg 9-20 -16 tablet by [facility] of tablet 00:00: 04:59 mouth at [place] 00 :00 bedtime Medical for 360 Branch days. aspirin 81 2022- No [id number] 81mg Take 1 [facility] mg chewable 9-20 -16 tablet by it y of tablet 00:00: 04:59 mouth [place] 00 :00 daily with Medical breakfast Branch for 360 days. atorvastati 2022- No [id number] 80mg Take 1 [facility] n 80 mg 9-20 -16 tablet by it[facility] of tablet 00:00: 04:59 mouth at [place] 00 :00 bedtime Medical for 360 Branch days. aspirin 81 2022- No [id number] 81mg Take 1 [facility] mg chewable 9-20 -16 tablet by it y of tablet 00:00: 04:59 mouth [place] 00 :00 daily with Medical breakfast Branch for 360 days. atorvastati 2022- No [id number] 80mg Take 1 [facility] n 80 mg 9-20 -16 tablet by ity of tablet 00:00: 04:59 mouth at [place] 00 :00 bedtime Medical for 360 Branch days. aspirin 81 2022- No [id number] 81mg Take 1 [facility] mg chewable 9-20 -16 tablet by it y of tablet 00:00: 04:59 mouth [place] 00 :00 daily with Medical breakfast Branch for 360 days. atorvastati 2022- No [id number] 80mg Take 1 [facility] n 80 mg 9-20 -16 tablet by ity of tablet 00:00: 04:59 mouth at [place] 00 :00 bedtime Medical for 360 Branch days. aspirin 81 2022- No [id number] 81mg Take 1 [facility] mg chewable 9-20 -16 tablet by it y of tablet 00:00: 04:59 mouth [place] 00 :00 daily with Medical breakfast Branch for 360 days. atorvastati 2022- No [id number] 80mg Take 1 [facility] n 80 mg 9-20 -16 tablet by ity of tablet 00:00: 04:59 mouth at [place] 00 :00 bedtime Medical for 360 Branch days. aspirin 81 2022- No [id number] 81mg Take 1 [facility] mg chewable 9-20 -16 tablet by it y of tablet 00:00: 04:59 mouth [place] 00 :00 daily with Medical breakfast Branch for 360 days. atorvastati 2022- No [id number] 80mg Take 1 [facility] n 80 mg 9-20 -16 tablet by ity of tablet 00:00: 04:59 mouth at [place] 00 :00 bedtime Medical for 360 Branch days. aspirin 81 2022- No [id number] 81mg Take 1 [facility] mg chewable 9-20 -16 tablet by it y of tablet 00:00: 04:59 mouth [place] 00 :00 daily with Medical breakfast Branch for 360 days. atorvastati 2022- No [id number] 80mg Take 1 [facility] n 80 mg 9-20 -16 tablet by ity of tablet 00:00: 04:59 mouth at [place] 00 :00 bedtime Medical for 360 Branch days. aspirin 81 2022- No [id number] 81mg Take 1 [facility] mg chewable 9-20 -16 tablet by it y of tablet 00:00: 04:59 mouth [place] 00 :00 daily with Medical breakfast Branch for 360 days. atorvastati 2022- No [id number] 80mg Take 1 [facility] n 80 mg 9-20 -16 tablet by ity of tablet 00:00: 04:59 mouth at [place] 00 :00 bedtime Medical for 360 Branch days. aspirin 81 2022- No [id number] 81mg Take 1 [facility] mg chewable 9-20 -16 tablet by it y of tablet 00:00: 04:59 mouth [place] 00 :00 daily with Medical breakfast Branch for 360 days. atorvastati 2022- No [id number] 80mg Take 1 [facility] n 80 mg 9-20 -16 tablet by ity of tablet 00:00: 04:59 mouth at [place] 00 :00 bedtime Medical for 360 Branch days. aspirin 81 2022- No [id number] 81mg Take 1 [facility] mg chewable 9-16 tablet by it y of tablet 00:00: 04:59 mouth [place] 00 :00 daily with [facility] breakfast Branch for 360 days. atorvastati 2022- No [id number] 80mg Take 1 [facility] n 80 mg 9-05-28 tablet by ity of tablet 00:00: 04:59 mouth at [place] 00 :00 bedtime Medical for 360 Branch days. pantoprazol 2021- No [id number] 40mg Take 1 [facility] e 40 mg EC 9-20 12-20 tablet by ity of tablet 00:00: 05:59 mouth in [place] 00 :00 the [facility] morning [facility] and 1 tablet in the evening. Do all this for 90 days. carvediloL 2021- No [id number] 12.5mg Take 1 [facility] 12.5 mg 9-20 12-20 tablet by [facility] of tablet 00:00: 05:59 mouth in [place] 00 :00 the Medical morning [facility] and 1 tablet in the evening. Take with meals. Do all this for 90 days. pantoprazol 2021- No [id number] 40mg Take 1 [facility] e 40 mg EC 9-20 12-20 tablet by [facility] of tablet 00:00: 05:59 mouth in [place] 00 :00 the Medical morning [facility] and 1 tablet in the evening. Do all this for 90 days. carvediloL 2021- No [id number] 12.5mg Take 1 [facility] 12.5 mg 9-20 12-20 tablet by [facility] of tablet 00:00: 05:59 mouth in [place] 00 :00 the Medical morning [facility] and 1 tablet in the evening. Take with meals. Do all this for 90 days. pantoprazol 2021- No [id number] 40mg Take 1 [facility] e 40 mg EC 9-20 12-20 tablet by [facility] of tablet 00:00: 05:59 mouth in [place] 00 :00 the Medical morning Branch and 1 tablet in the evening. Do all this for 90 days. carvediloL 2021- No [id number] 12.5mg Take 1 [facility] 12.5 mg 9-20 12-20 tablet by [facility] of tablet 00:00: 05:59 mouth in [place] 00 :00 the [facility] and 1 tablet in the evening. Take with meals. Do all this for 90 days. pantoprazol 2021- No [id number] 40mg Take 1 [facility] e 40 mg EC 9-20 12-20 tablet by ity of tablet 00:00: 05:59 mouth in [place] 00 :00 [facility] and 1 tablet in the evening. Do all this for 90 days. carvediloL 2021- No [id number] 12.5mg Take 1 [facility] 12.5 mg 9-20 12-20 tablet by [facility] of tablet 00:00: 05:59 mouth in [place] 00 :00 the [facility] and 1 tablet in the evening. Take with meals. Do all this for 90 days. pantoprazol 2021- No [id number] 40mg Take 1 [facility] e 40 mg EC 9-20 12-20 tablet by [facility] of tablet 00:00: 05:59 mouth in [place] 00 :00 [facility] and 1 tablet in the evening. Do all this for 90 days. carvediloL 2021-2021- No [id number] 12.5mg Take 1 [facility] 12.5 mg 9-20 12-20 tablet by [facility] of tablet 00:00: 05:59 mouth in [place] 00 :00 [facility] and 1 tablet in the evening. Take with meals. Do all this for 90 days. pantoprazol 2021- No [id number] 40mg Take 1 [facility] e 40 mg EC 9-20 12-20 tablet by [facility] of tablet 00:00: 05:59 mouth in [place] 00 :00 [facility] and 1 tablet in the evening. Do all this for 90 days. carvediloL 2021-2- No [id number] 12.5mg Take 1 [facility] 12.5 mg 9-20 12-20 tablet by [facility]y of tablet 00:00: 05:59 mouth in [place] 00 :00 [facility] and 1 tablet in the evening. Take with meals. Do all this for 90 days. pantoprazol 2021-2- No [id number] 40mg Take 1 [facility] e 40 mg EC 9-20 12-20 tablet by [facility] of tablet 00:00: 05:59 mouth in [place] 00 :00 [facility] and 1 tablet in the evening. Do all this for 90 days. carvediloL 2021-2021- No [id number] 12.5mg Take 1 [facility] 12.5 mg 9-20 12-20 tablet by [facility] of tablet 00:00: 05:59 mouth in [place] 00 :00 the [facility] and 1 tablet in the evening. Take with meals. Do all this for 90 days. pantoprazol 2021-2021- No [id number] 40mg Take 1 [facility] e 40 mg EC 9-20 12-20 tablet by [facility] of tablet 00:00: 05:59 mouth in [place] 00 :00 [facility] and 1 tablet in the evening. Do all this for 90 days. carvediloL 2021- No [id number] 12.5mg Take 1 [facility] 12.5 mg 9-20 12-20 tablet by [facility] of tablet 00:00: 05:59 mouth in [place] 00 :00 [facility] and 1 tablet in the evening. Take with meals. Do all this for 90 days. pantoprazol 2021-2021- No [id number] 40mg Take 1 [facility] e 40 mg EC 9-20 12-20 tablet by [facility]y of tablet 00:00: 05:59 mouth in [place] 00 :00 [facility] and 1 tablet in the evening. Do all this for 90 days. carvediloL 2021- No [id number] 12.5mg Take 1 [facility] 12.5 mg 9-20 12-20 tablet by [facility] of tablet 00:00: 05:59 mouth in [place] 00 :00 [facility] and 1 tablet in the evening. Take with meals. Do all this for 90 days. pantoprazol 2021-2- No [id number] 40mg Take 1 [facility] e 40 mg EC 9-20 12-20 tablet by [facility] of tablet 00:00: 05:59 mouth in [place] 00 :00 [facility] and 1 tablet in the evening. Do all this for 90 days. carvediloL 2021-2- No [id number] 12.5mg Take 1 [facility] 12.5 mg 9-20 12-20 tablet by [facility] of tablet 00:00: 05:59 mouth in [place] 00 :00 the [facility] morning [facility] and 1 tablet in the evening. Take with meals. Do all this for 90 days. pantoprazol 2021-0 2- No [id number] 40mg Take 1 [facility] e 40 mg EC 9-20 12-20 tablet by [facility] of tablet 00:00: 05:59 mouth in [place] 00 :00 the [facility] morning Branch and 1 tablet in the evening. Do all this for 90 days. carvediloL 2021-2021- No [id number] 12.5mg Take 1 [facility] 12.5 mg 9-20 12-20 tablet by ity of tablet 00:00: 05:59 mouth in [place] 00 :00 the [facility] morning [place] and 1 tablet in the evening. Take with meals. Do all this for 90 days. pantoprazol 2021-0 2021- No [id number] 40mg Take 1 [facility] e 40 mg EC 9-20 12-20 tablet by ity of tablet 00:00: 05:59 mouth in [place] 00 :00 the [facility] and 1 tablet in the evening. Do all this for 90 days. carvediloL 2021-0 2021- No [id number] 12.5mg Take 1 [facility] 12.5 mg 9-20 12-20 tablet by [facility] of tablet 00:00: 05:59 mouth in [place] 00 :00 the [facility] and 1 tablet in the evening. Take with meals. Do all this for 90 days. pantoprazol 2021-0 2- No [id number] 40mg Take 1 [facility] e 40 mg EC 9-20 12-20 tablet by [facility] of tablet 00:00: 05:59 mouth in [place] 00 :00 the [facility] and 1 tablet in the evening. Do all this for 90 days. carvediloL 2021-0 2- No [id number] 12.5mg Take 1 [facility] 12.5 mg 9-20 12-20 tablet by [facility] of tablet 00:00: 05:59 mouth in [place] 00 :00 [facility] and 1 tablet in the evening. Take with meals. Do all this for 90 days. pantoprazol 2-0 2- No [id number] 40mg Take 1 [facility] e 40 mg EC 9-20 12-20 tablet by [facility] of tablet 00:00: 05:59 mouth in [place] 00 :00 the [facility] morning [facility] and 1 tablet in the evening. Do all this for 90 days. carvediloL 2021-0 2- No [id number] 12.5mg Take 1 [facility] 12.5 mg 9-20 12-20 tablet by [facility] of tablet 00:00: 05:59 mouth in [place] 00 :00 the [facility] and 1 tablet in the evening. Take with meals. Do all this for 90 days. pantoprazol 2021-0 2- No [id number] 40mg Take 1 [facility] e 40 mg EC 9-20 12-20 tablet by [facility] of tablet 00:00: 05:59 mouth in [place] 00 :00 the [facility] and 1 tablet in the evening. Do all this for 90 days. carvediloL 2021-0 2021- No [id number] 12.5mg Take 1 [facility] 12.5 mg 9-20 12-20 tablet by [facility] of tablet 00:00: 05:59 mouth in [place] 00 :00 the [facility] and 1 tablet in the evening. Take with meals. Do all this for 90 days. pantoprazol 2021-0 2021- No [id number] 40mg Take 1 [facility] e 40 mg EC 9-20 12-20 tablet by ity of tablet 00:00: 05:59 mouth in [place] 00 :00 the [facility] and 1 tablet in the evening. Do all this for 90 days. carvediloL 2021-0 2- No [id number] 12.5mg Take 1 [facility] 12.5 mg 9-20 12-20 tablet by [facility] of tablet 00:00: 05:59 mouth in [place] 00 :00 the [facility] and 1 tablet in the evening. Take with meals. Do all this for 90 days. pantoprazol 2021-0 2- No [id number] 40mg Take 1 [facility] e 40 mg EC 9-20 12-20 tablet by [facility]y of tablet 00:00: 05:59 mouth in [place] 00 :00 the [facility] and 1 tablet in the evening. Do all this for 90 days. carvediloL 2021-0 2- No [id number] 12.5mg Take 1 [facility] 12.5 mg 9-20 12-20 tablet by [facility] of tablet 00:00: 05:59 mouth in [place] 00 :00 the [facility] and 1 tablet in the evening. Take with meals. Do all this for 90 days. pantoprazol 2021-0 2- No [id number] 40mg Take 1 [facility] e 40 mg EC 9-20 12-20 tablet by ity of tablet 00:00: 05:59 mouth in [place] 00 :00 the [facility] and 1 tablet in the evening. Do all this for 90 days. carvediloL 2021-0 2- No [id number] 12.5mg Take 1 [facility] 12.5 mg 9-20 12-20 tablet by [facility] of tablet 00:00: 05:59 mouth in [place] 00 :00 the [facility] and 1 tablet in the evening. Take with meals. Do all this for 90 days. pantoprazol 2021-0 2- No [id number] 40mg Take 1 [facility] e 40 mg EC 9-20 12-20 tablet by [facility] of tablet 00:00: 05:59 mouth in [place] 00 :00 the [facility] and 1 tablet in the evening. Do all this for 90 days. carvediloL 2021-0 2- No [id number] 12.5mg Take 1 [facility] 12.5 mg 9-20 12-20 tablet by ity of tablet 00:00: 05:59 mouth in [place] 00 :00 the [facility] and 1 tablet in the evening. Take with meals. Do all this for 90 days. pantoprazol 2021-0 2- No [id number] 40mg Take 1 [facility] e 40 mg EC 9-20 12-20 tablet by ity of tablet 00:00: 05:59 mouth in [place] 00 :00 the [facility] and 1 tablet in the evening. Do all this for 90 days. carvediloL 2021-0 2- No [id number] 12.5mg Take 1 [facility] 12.5 mg 9-20 12-20 tablet by ity of tablet 00:00: 05:59 mouth in [place] 00 :00 the [facility] and 1 tablet in the evening. Take with meals. Do all this for 90 days. pantoprazol 2-0 2- No [id number] 40mg Take 1 [facility] e 40 mg EC 9-20 12-20 tablet by it[facility] of tablet 00:00: 05:59 mouth in [place] 00 :00 the [facility] and 1 tablet in the evening. Do all this for 90 days. carvediloL 2021-0 2022- No [id number] 12.5mg Take 1 [facility] 12.5 mg 9-20 12-20 tablet by [facility] of tablet 00:00: 05:59 mouth in [place] 00 :00 the [facility] morning [facility] and 1 tablet in the evening. Take with meals. Do all this for 90 days. pantoprazol 2021- No [id number] 40mg Take 1 [facility] e 40 mg EC 9-20 12-20 tablet by it[facility] of tablet 00:00: 05:59 mouth in [place] 00 :00 the Medical morning [place] and 1 tablet in the evening. Do all this for 90 days. carvediloL 2021- No [id number] 12.5mg Take 1 [facility] 12.5 mg 9-20 12-20 tablet by [facility] of tablet 00:00: 05:59 mouth in [place] 00 :00 the Medical morning [place] and 1 tablet in the evening. Take with meals. Do all this for 90 days. pantoprazol 2021- No [id number] 40mg Take 1 [facility] e 40 mg EC 9-20 12-20 tablet by ity of tablet 00:00: 05:59 mouth in [place] 00 :00 the Medical [facility] and 1 tablet in the evening. Do all this for 90 days. ferrous 2021- No [id number] 325mg Take 1 Un n[facility] sulfate 325 9-20 12-20 tablet by it y of mg (65 mg 00:00: 05:59 mouth in [facility] as iron) 00 :00 the Medical [facility] morning Branch for 90 days. carvediloL 2021- No [id number] 12.5mg Take 1 [facility] 12.5 mg 9-20 12-20 tablet by ity of tablet 00:00: 05:59 mouth in [place] 00 :00 the Medical morning [place] and 1 tablet in the evening. Take with meals. Do all this for 90 days. pantoprazol 2021- No [id number] 40mg Take 1 [facility] e 40 mg EC 9-20 12-20 tablet by ity of tablet 00:00: 05:59 mouth in [place] 00 :00 the Medical morning [place] and 1 tablet in the evening. Do all this for 90 days. ferrous 2021-2021- No [id number] 325mg Take 1 [facility] sulfate 325 9-20 12-20 tablet by it y of mg (65 mg 00:00: 05:59 mouth in [place]) 00 :00 the Medical tablet morning Branch for 90 days. carvediloL 2021- No [id number] 12.5mg Take 1 [facility] 12.5 mg 9-20 12-20 tablet by ity of tablet 00:00: 05:59 mouth in [place] 00 :00 the Medical morning [facility] and 1 tablet in the evening. Take with meals. Do all this for 90 days. pantoprazol 2021- No [id number] 40mg Take 1 [facility] e 40 mg EC 9-20 12-20 tablet by ity of tablet 00:00: 05:59 mouth in [place] 00 :00 the [facility] morning [facility] and 1 tablet in the evening. Do all this for 90 days. ferrous 2021- No [id number] 325mg Take 1 [facility] sulfate 325 9-20 12-20 tablet by it y of mg (65 mg 00:00: 05:59 mouth in [place]) 00 :00 the Medical tablet morning Branch for 90 days. carvediloL 2021- No [id number] 12.5mg Take 1 [facility] 12.5 mg 9-20 12-20 tablet by ity of tablet 00:00: 05:59 mouth in [place] 00 :00 the Medical morning [facility] and 1 tablet in the evening. Take with meals. Do all this for 90 days. pantoprazol 2021- No [id number] 40mg Take 1 [facility] e 40 mg EC 9-20 12-20 tablet by ity of tablet 00:00: 05:59 mouth in [place] 00 :00 the [facility] morning [facility] and 1 tablet in the evening. Do all this for 90 days. ferrous 2021-2021- No [id number] 325mg Take 1 [facility] sulfate 325 9-20 12-20 tablet by it y of mg (65 mg 00:00: 05:59 mouth in [place]) 00 :00 the Medical tablet morning Branch for 90 days. carvediloL 2021- No [id number] 12.5mg Take 1 [facility] 12.5 mg 9-20 12-20 tablet by ity of tablet 00:00: 05:59 mouth in [place] 00 :00 the Medical morning [facility] and 1 tablet in the evening. Take with meals. Do all this for 90 days. pantoprazol 2021- No [id number] 40mg Take 1 [facility] e 40 mg EC 9-20 12-20 tablet by ity of tablet 00:00: 05:59 mouth in [place] 00 :00 the Medical morning [facility] and 1 tablet in the evening. Do all this for 90 days. ferrous 2021- No [id number] 325mg Take 1 [facility] sulfate 325 9-20 12-20 tablet by it y of mg (65 mg 00:00: 05:59 mouth in [place] as [place]) 00 :00 the Medical tablet morning Branch for 90 days. carvediloL 2021- No [id number] 12.5mg Take 1 [facility] 12.5 mg 9-20 12-20 tablet by ity of tablet 00:00: 05:59 mouth in [place] 00 :00 the Medical morning [facility] and 1 tablet in the evening. Take with meals. Do all this for 90 days. pantoprazol 2021- No [id number] 40mg Take 1 [facility] e 40 mg EC 9-20 12-20 tablet by ity of tablet 00:00: 05:59 mouth in [place] 00 :00 the [facility] morning [facility] and 1 tablet in the evening. Do all this for 90 days. ferrous 2021- No [id number] 325mg Take 1 [facility] sulfate 325 9-20 12-20 tablet by it y of mg (65 mg 00:00: 05:59 mouth in [facility] as iron) 00 :00 the Medical tablet morning Branch for 90 days. carvediloL 2021- No [id number] 12.5mg Take 1 [facility] 12.5 mg 9-20 12-20 tablet by ity of tablet 00:00: 05:59 mouth in [place] 00 :00 the Medical morning Branch and 1 tablet in the evening. Take with meals. Do all this for 90 days. pantoprazol 2021- No [id number] 40mg Take 1 [facility] e 40 mg EC 9-20 12-20 tablet by ity of tablet 00:00: 05:59 mouth in [place] 00 :00 the Medical morning [facility] and 1 tablet in the evening. Do all this for 90 days. carvediloL 2021- No [id number] 12.5mg Take 1 [facility] 12.5 mg 9-20 12-20 tablet by ity of tablet 00:00: 05:59 mouth in [place] 00 :00 the [facility] and 1 tablet in the evening. Take with meals. Do all this for 90 days. pantoprazol 2021-0 2- No [id number] 40mg Take 1 [facility] e 40 mg EC 9-20 12-20 tablet by ity of tablet 00:00: 05:59 mouth in [place] 00 :00 the [facility] and 1 tablet in the evening. Do all this for 90 days. carvediloL 2021-2021- No [id number] 12.5mg Take 1 [facility] 12.5 mg 9-20 12-20 tablet by ity of tablet 00:00: 05:59 mouth in [place] 00 :00 the [facility] and 1 tablet in the evening. Take with meals. Do all this for 90 days. pantoprazol 2021-0 2021- No [id number] 40mg Take 1 [facility] e 40 mg EC 9-20 12-20 tablet by ity of tablet 00:00: 05:59 mouth in [place] 00 :00 the [facility] and 1 tablet in the evening. Do all this for 90 days. carvediloL 2021-0 2- No [id number] 12.5mg Take 1 [facility] 12.5 mg 9-20 12-20 tablet by ity of tablet 00:00: 05:59 mouth in [place] 00 :00 [facility] and 1 tablet in the evening. Take with meals. Do all this for 90 days. pantoprazol 2021-0 2- No [id number] 40mg Take 1 [facility] e 40 mg EC 9-20 12-20 tablet by ity of tablet 00:00: 05:59 mouth in [place] 00 :00 [facility] and 1 tablet in the evening. Do all this for 90 days. carvediloL 2021-0 2- No [id number] 12.5mg Take 1 [facility] 12.5 mg 9-20 12-20 tablet by ity of tablet 00:00: 05:59 mouth in [place] 00 :00 [facility] and 1 tablet in the evening. Take with meals. Do all this for 90 days. pantoprazol 2-0 2- No [id number] 40mg Take 1 [facility] e 40 mg EC 9-20 12-20 tablet by ity of tablet 00:00: 05:59 mouth in [place] 00 :00 the [facility] and 1 tablet in the evening. Do all this for 90 days. carvediloL 2021-0 2- No [id number] 12.5mg Take 1 [facility] 12.5 mg 9-20 12-20 tablet by ity of tablet 00:00: 05:59 mouth in [place] 00 :00 the [facility] and 1 tablet in the evening. Take with meals. Do all this for 90 days. pantoprazol 2021-0 2021- No [id number] 40mg Take 1 [facility] e 40 mg EC 9-20 12-20 tablet by ity of tablet 00:00: 05:59 mouth in [place] 00 :00 the [facility] and 1 tablet in the evening. Do all this for 90 days. carvediloL 2021-2021- No [id number] 12.5mg Take 1 [facility] 12.5 mg 9-20 12-20 tablet by ity of tablet 00:00: 05:59 mouth in [place] 00 :00 the [facility] and 1 tablet in the evening. Take with meals. Do all this for 90 days. pantoprazol 2021-0 2021- No [id number] 40mg Take 1 [facility] e 40 mg EC 9-20 12-20 tablet by ity of tablet 00:00: 05:59 mouth in [place] 00 :00 [facility] and 1 tablet in the evening. Do all this for 90 days. carvediloL 2021-0 2021- No [id number] 12.5mg Take 1 [facility] 12.5 mg 9-20 12-20 tablet by ity of tablet 00:00: 05:59 mouth in [place] 00 :00 the [facility] and 1 tablet in the evening. Take with meals. Do all this for 90 days. pantoprazol 2021-0 2- No [id number] 40mg Take 1 [facility] e 40 mg EC 9-20 12-20 tablet by ity of tablet 00:00: 05:59 mouth in [place] 00 :00 [facility] and 1 tablet in the evening. Do all this for 90 days. carvediloL 2021-2- No [id number] 12.5mg Take 1 [facility] 12.5 mg 9-20 12-20 tablet by ity of tablet 00:00: 05:59 mouth in [place] 00 :00 [facility] and 1 tablet in the evening. Take with meals. Do all this for 90 days. pantoprazol 2021-0 2021- No [id number] 40mg Take 1 [facility] e 40 mg EC 9-20 12-20 tablet by ity of tablet 00:00: 05:59 mouth in [place] 00 :00 the [facility] morning Branch and 1 tablet in the evening. Do all this for 90 days. carvediloL 2021-2021- No [id number] 12.5mg Take 1 [facility] 12.5 mg 9-20 12-20 tablet by ity of tablet 00:00: 05:59 mouth in [place] 00 :00 the [facility] morning [place] and 1 tablet in the evening. Take with meals. Do all this for 90 days. pantoprazol 2021-0 2021- No [id number] 40mg Take 1 [facility] e 40 mg EC 9-20 12-20 tablet by ity of tablet 00:00: 05:59 mouth in [place] 00 :00 the [facility] and 1 tablet in the evening. Do all this for 90 days. carvediloL 2021-0 2021- No [id number] 12.5mg Take 1 [facility] 12.5 mg 9-20 12-20 tablet by ity of tablet 00:00: 05:59 mouth in [place] 00 :00 the [facility] and 1 tablet in the evening. Take with meals. Do all this for 90 days. pantoprazol 2021-2021- No [id number] 40mg Take 1 [facility] e 40 mg EC 9-20 12-20 tablet by ity of tablet 00:00: 05:59 mouth in [place] 00 :00 the [facility] and 1 tablet in the evening. Do all this for 90 days. carvediloL 2021-0 2021- No [id number] 12.5mg Take 1 [facility] 12.5 mg 9-20 12-20 tablet by ity of tablet 00:00: 05:59 mouth in [place] 00 :00 the [facility] morning [place] and 1 tablet in the evening. Take with meals. Do all this for 90 days. pantoprazol 2021-0 2021- No [id number] 40mg Take 1 [facility] e 40 mg EC 9-20 12-20 tablet by ity of tablet 00:00: 05:59 mouth in [place] 00 :00 the [facility] morning [place] and 1 tablet in the evening. Do all this for 90 days. carvediloL 2021- No [id number] 12.5mg Take 1 [facility] 12.5 mg 9-20 12-20 tablet by ity of tablet 00:00: 05:59 mouth in [place] 00 :00 the [facility] and 1 tablet in the evening. Take with meals. Do all this for 90 days. pantoprazol 2021-2- No [id number] 40mg Take 1 [facility] e 40 mg EC 9-20 12-20 tablet by ity of tablet 00:00: 05:59 mouth in [place] 00 :00 the [facility] and 1 tablet in the evening. Do all this for 90 days. carvediloL 2021-2021- No [id number] 12.5mg Take 1 [facility] 12.5 mg 9-20 12-20 tablet by ity of tablet 00:00: 05:59 mouth in [place] 00 :00 the [facility] and 1 tablet in the evening. Take with meals. Do all this for 90 days. pantoprazol 2021-2021- No [id number] 40mg Take 1 [facility] e 40 mg EC 9-20 12-20 tablet by ity of tablet 00:00: 05:59 mouth in [place] 00 :00 the [facility] and 1 tablet in the evening. Do all this for 90 days. carvediloL 2021-2021- No [id number] 12.5mg Take 1 [facility] 12.5 mg 9-20 12-20 tablet by ity of tablet 00:00: 05:59 mouth in [place] 00 :00 the [facility] and 1 tablet in the evening. Take with meals. Do all this for 90 days. pantoprazol 2021- No [id number] 40mg Take 1 [facility] e 40 mg EC 9-20 12-20 tablet by ity of tablet 00:00: 05:59 mouth in [place] 00 :00 the [facility] and 1 tablet in the evening. Do all this for 90 days. carvediloL 2021-0 2- No [id number] 12.5mg Take 1 [facility] 12.5 mg 9-20 12-20 tablet by ity of tablet 00:00: 05:59 mouth in [place] 00 :00 [facility] and 1 tablet in the evening. Take with meals. Do all this for 90 days. pantoprazol 2021-2- No [id number] 40mg Take 1 [facility] e 40 mg EC 9-20 12-20 tablet by ity of tablet 00:00: 05:59 mouth in [place] 00 :00 the [facility] and 1 tablet in the evening. Do all this for 90 days. carvediloL 2021- No [id number] 12.5mg Take 1 [facility] 12.5 mg 9-20 12-20 tablet by ity of tablet 00:00: 05:59 mouth in [place] 00 :00 the [facility] and 1 tablet in the evening. Take with meals. Do all this for 90 days. pantoprazol 2021- No [id number] 40mg Take 1 [facility] e 40 mg EC 9-20 12-20 tablet by ity of tablet 00:00: 05:59 mouth in [place] 00 :00 [facility] and 1 tablet in the evening. Do all this for 90 days. carvediloL 2021- No [id number] 12.5mg Take 1 [facility] 12.5 mg 9-20 12-20 tablet by ity of tablet 00:00: 05:59 mouth in [place] 00 :00 [facility] and 1 tablet in the evening. Take with meals. Do all this for 90 days. pantoprazol 2021- No [id number] 40mg Take 1 [facility] e 40 mg EC 9-20 12-20 tablet by ity of tablet 00:00: 05:59 mouth in [place] 00 :00 [facility] and 1 tablet in the evening. Do all this for 90 days. carvediloL 2021- No [id number] 12.5mg Take 1 [facility] 12.5 mg 9-20 12-20 tablet by ity of tablet 00:00: 05:59 mouth in [place] 00 :00 [facility] and 1 tablet in the evening. Take with meals. Do all this for 90 days. pantoprazol 2021-2- No [id number] 40mg Take 1 [facility] e 40 mg EC 9-20 12-20 tablet by ity of tablet 00:00: 05:59 mouth in [place] 00 :00 [facility] and 1 tablet in the evening. Do all this for 90 days. carvediloL 2021-0 2- No [id number] 12.5mg Take 1 [facility] 12.5 mg 9-20 12-20 tablet by ity of tablet 00:00: 05:59 mouth in [place] 00 :00 the [facility] and 1 tablet in the evening. Take with meals. Do all this for 90 days. pantoprazol 2021-0 2- No [id number] 40mg Take 1 [facility] e 40 mg EC 9-20 12-20 tablet by ity of tablet 00:00: 05:59 mouth in [place] 00 :00 the [facility] and 1 tablet in the evening. Do all this for 90 days. carvediloL 2021-0 2- No [id number] 12.5mg Take 1 [facility] 12.5 mg 9-20 12-20 tablet by ity of tablet 00:00: 05:59 mouth in [place] 00 :00 the [facility] and 1 tablet in the evening. Take with meals. Do all this for 90 days. pantoprazol 2021-0 2- No [id number] 40mg Take 1 [facility] e 40 mg EC 9-20 12-20 tablet by ity of tablet 00:00: 05:59 mouth in [place] 00 :00 [facility] and 1 tablet in the evening. Do all this for 90 days. carvediloL 2021-0 2- No [id number] 12.5mg Take 1 [facility] 12.5 mg 9-20 12-20 tablet by ity of tablet 00:00: 05:59 mouth in [place] 00 :00 [facility] and 1 tablet in the evening. Take with meals. Do all this for 90 days. pantoprazol 2021-0 2- No [id number] 40mg Take 1 Univers e 40 mg EC 9-20 12-20 tablet by ity of tablet 00:00: 05:59 mouth in [place] 00 :00 [facility] and 1 tablet in the evening. Do all this for 90 days. carvediloL 2021-0 2- No [id number] 12.5mg Take 1 Univers 12.5 mg 9-20 12-20 tablet by ity of tablet 00:00: 05:59 mouth in [place] 00 :00 [facility] and 1 tablet in the evening. Take with meals. Do all this for 90 days. pantoprazol 2-0 2022- No [id number] 40mg Take 1 Univers e 40 mg EC 9-20 12-20 tablet by ity of tablet 00:00: 05:59 mouth in [place] 00 :00 the [facility] and 1 tablet in the evening. Do all this for 90 days. carvediloL 2021-0 2- No [id number] 12.5mg Take 1 Univers 12.5 mg 9-20 12-20 tablet by ity of tablet 00:00: 05:59 mouth in [place] 00 :00 the [facility] and 1 tablet in the evening. Take with meals. Do all this for 90 days. pantoprazol 2021-0 2021- No [id number] 40mg Take 1 Univers e 40 mg EC 9-20 12-20 tablet by ity of tablet 00:00: 05:59 mouth in [place] 00 :00 the [facility] and 1 tablet in the evening. Do all this for 90 days. carvediloL 2021-2021- No [id number] 12.5mg Take 1 Univers 12.5 mg 9-20 12-20 tablet by ity of tablet 00:00: 05:59 mouth in [place] 00 :00 the [facility] and 1 tablet in the evening. Take with meals. Do all this for 90 days. pantoprazol 2021-0 2021- No [id number] 40mg Take 1 Univers e 40 mg EC 9-20 12-20 tablet by ity of tablet 00:00: 05:59 mouth in [place] 00 :00 [facility] and 1 tablet in the evening. Do all this for 90 days. carvediloL 2021-0 2021- No [id number] 12.5mg Take 1 Univers 12.5 mg 9-20 12-20 tablet by ity of tablet 00:00: 05:59 mouth in [place] 00 :00 [facility] and 1 tablet in the evening. Take with meals. Do all this for 90 days. pantoprazol 2021-0 2- No [id number] 40mg Take 1 Univers e 40 mg EC 9-20 12-20 tablet by ity of tablet 00:00: 05:59 mouth in [place] 00 :00 [facility] and 1 tablet in the evening. Do all this for 90 days. carvediloL 2021-0 2- No [id number] 12.5mg Take 1 Univers 12.5 mg 9-20 12-20 tablet by ity of tablet 00:00: 05:59 mouth in [place] 00 :00 [facility] and 1 tablet in the evening. Take with meals. Do all this for 90 days. pantoprazol 2021-0 2- No [id number] 40mg Take 1 Univers e 40 mg EC 9-20 12-20 tablet by ity of tablet 00:00: 05:59 mouth in [place] 00 :00 the [facility] and 1 tablet in the evening. Do all this for 90 days. carvediloL 2021-0 2- No [id number] 12.5mg Take 1 Univers 12.5 mg 9-20 12-20 tablet by ity of tablet 00:00: 05:59 mouth in [place] 00 :00 the [facility] and 1 tablet in the evening. Take with meals. Do all this for 90 days. pantoprazol 2021-0 2021- No [id number] 40mg Take 1 Univers e 40 mg EC 9-20 12-20 tablet by ity of tablet 00:00: 05:59 mouth in [place] 00 :00 the [facility] and 1 tablet in the evening. Do all this for 90 days. carvediloL 2021-0 2021- No [id number] 12.5mg Take 1 Univers 12.5 mg 9-20 12-20 tablet by ity of tablet 00:00: 05:59 mouth in [place] 00 :00 the [facility] and 1 tablet in the evening. Take with meals. Do all this for 90 days. pantoprazol 2021-0 2021- No [id number] 40mg Take 1 [facility] e 40 mg EC 9-20 12-20 tablet by ity of tablet 00:00: 05:59 mouth in [place] 00 :00 the [facility] and 1 tablet in the evening. Do all this for 90 days. carvediloL 2021-0 2- No [id number] 12.5mg Take 1 Univers 12.5 mg 9-20 12-20 tablet by ity of tablet 00:00: 05:59 mouth in [place] 00 :00 the [facility] and 1 tablet in the evening. Take with meals. Do all this for 90 days. pantoprazol 2-0 2- No [id number] 40mg Take 1 Univers e 40 mg EC 9-20 12-20 tablet by ity of tablet 00:00: 05:59 mouth in [place] 00 :00 [facility] and 1 tablet in the evening. Do all this for 90 days. carvediloL 2022-0 2022- No [id number] 12.5mg Take 1 Univers 12.5 mg 9-20 12-20 tablet by ity of tablet 00:00: 05:59 mouth in [place] 00 :00 the [facility] and 1 tablet in the evening. Take with meals. Do all this for 90 days. pantoprazol 2021-0 2- No [id number] 40mg Take 1 Univers e 40 mg EC 9-20 12-20 tablet by ity of tablet 00:00: 05:59 mouth in [place] 00 :00 the [facility] and 1 tablet in the evening. Do all this for 90 days. carvediloL 2021-2021- No [id number] 12.5mg Take 1 Univers 12.5 mg 9-20 12-20 tablet by ity of tablet 00:00: 05:59 mouth in [place] 00 :00 the [facility] and 1 tablet in the evening. Take with meals. Do all this for 90 days. pantoprazol 2021-2021- No [id number] 40mg Take 1 Univers e 40 mg EC 9-20 12-20 tablet by ity of tablet 00:00: 05:59 mouth in [place] 00 :00 the [facility] and 1 tablet in the evening. Do all this for 90 days. carvediloL 2021-0 2021- No [id number] 12.5mg Take 1 Univers 12.5 mg 9-20 12-20 tablet by ity of tablet 00:00: 05:59 mouth in [place] 00 :00 the [facility] and 1 tablet in the evening. Take with meals. Do all this for 90 days. pantoprazol 2021-2021- No [id number] 40mg Take 1 Univers e 40 mg EC 9-20 12-20 tablet by ity of tablet 00:00: 05:59 mouth in [place] 00 :00 the [facility] and 1 tablet in the evening. Do all this for 90 days. carvediloL 2021-2- No [id number] 12.5mg Take 1 Univers 12.5 mg 9-20 12-20 tablet by ity of tablet 00:00: 05:59 mouth in [place] 00 :00 [facility] and 1 tablet in the evening. Take with meals. Do all this for 90 days. pantoprazol 2021-0 2- No [id number] 40mg Take 1 [facility] e 40 mg EC 9-20 12-20 tablet by ity of tablet 00:00: 05:59 mouth in [place] 00 :00 the [facility] and 1 tablet in the evening. Do all this for 90 days. carvediloL 2021-2021- No [id number] 12.5mg Take 1 Univers 12.5 mg 9-20 12-20 tablet by ity of tablet 00:00: 05:59 mouth in [place] 00 :00 the [facility] and 1 tablet in the evening. Take with meals. Do all this for 90 days. pantoprazol 2021- No [id number] 40mg Take 1 Univers e 40 mg EC 9-20 12-20 tablet by ity of tablet 00:00: 05:59 mouth in [place] 00 :00 [facility] and 1 tablet in the evening. Do all this for 90 days. carvediloL 2021- No [id number] 12.5mg Take 1 Univers 12.5 mg 9-20 12-20 tablet by ity of tablet 00:00: 05:59 mouth in [place] 00 :00 [facility] and 1 tablet in the evening. Take with meals. Do all this for 90 days. pantoprazol 2021-2021- No [id number] 40mg Take 1 [facility] e 40 mg EC 9-20 12-20 tablet by ity of tablet 00:00: 05:59 mouth in [place] 00 :00 [facility] and 1 tablet in the evening. Do all this for 90 days. carvediloL 2021- No [id number] 12.5mg Take 1 Univers 12.5 mg 9-20 12-20 tablet by ity of tablet 00:00: 05:59 mouth in [place] 00 :00 [facility] and 1 tablet in the evening. Take with meals. Do all this for 90 days. pantoprazol 2021-0 2- No [id number] 40mg Take 1 [facility] e 40 mg EC 9-20 12-20 tablet by ity of tablet 00:00: 05:59 mouth in [place] 00 :00 [facility] and 1 tablet in the evening. Do all this for 90 days. carvediloL 2021-0 2- No [id number] 12.5mg Take 1 Univers 12.5 mg 9-20 12-20 tablet by ity of tablet 00:00: 05:59 mouth in [place] 00 :00 the Medical morning Branch and 1 tablet in the evening. Take with meals. Do all this for 90 days. nicotine 2021- No [id number] 1{patch Apply 1 Univers mg/24 hr 9-20 11-20 } Patch to ity of patch 00:00: 05:59 area(s) [place] 00 :00 every 24 Medical (twenty-fo Branch ur) hours for 60 days. nicotine 2021- No [id number] 1{patch Apply 1 Univers mg/24 hr 9-20 11-20 } Patch to ity of patch 00:00: 05:59 area(s) [place] 00 :00 every 24 Medical (twenty-fo Branch ur) hours for 60 days. nicotine 2021- No [id number] 1{patch Apply 1 Univers mg/24 hr 9-20 11-20 } Patch to ity of patch 00:00: 05:59 area(s) [place] 00 :00 every 24 Medical (twenty-fo Branch ur) hours for 60 days. nicotine 2021- No [id number] 1{patch Apply 1 Univers mg/24 hr 9-20 11-20 } Patch to ity of patch 00:00: 05:59 area(s) [place] 00 :00 every 24 Medical (twenty-fo Branch ur) hours for 60 days. nicotine 2021- No [id number] 1{patch Apply 1 Univers mg/24 hr 9-20 11-20 } Patch to ity of patch 00:00: 05:59 area(s) [place] 00 :00 every 24 Medical (twenty-fo Branch ur) hours for 60 days. nicotine 2021- No [id number] 1{patch Apply 1 Univers mg/24 hr 9-20 11-20 } Patch to ity of patch 00:00: 05:59 area(s) [place] 00 :00 every 24 Medical (twenty-fo Branch ur) hours for 60 days. nicotine 14 2021- No [id number] 1{patch Apply 1 Univers mg/24 hr 9-20 11-20 } Patch to ity of patch 00:00: 05:59 area(s) [place] 00 :00 every 24 Medical (twenty-fo Branch ur) hours for 60 days. nicotine 2021- No [id number] 1{patch Apply 1 Univers mg/24 hr 9-20 11-20 } Patch to ity of patch 00:00: 05:59 area(s) [place] 00 :00 every 24 Medical (twenty-fo Branch ur) hours for 60 days. nicotine 14 2021- No [id number] 1{patch Apply 1 Univers mg/24 hr 9-20 11-20 } Patch to ity of patch 00:00: 05:59 area(s) [place] 00 :00 every 24 Medical (twenty-fo Branch ur) hours for 60 days. nicotine 14 2021- No [id number] 1{patch Apply 1 Univers mg/24 hr 9-20 11-20 } Patch to ity of patch 00:00: 05:59 area(s) [place] 00 :00 every 24 Medical (twenty-fo Branch ur) hours for 60 days. nicotine 14 2021- No [id number] 1{patch Apply 1 Univers mg/24 hr 9-20 11-20 } Patch to ity of patch 00:00: 05:59 area(s) [place] 00 :00 every 24 Medical (twenty-fo Branch ur) hours for 60 days. nicotine 2021- No [id number] 1{patch Apply 1 Univers mg/24 hr 9-20 11-20 } Patch to ity of patch 00:00: 05:59 area(s) [place] 00 :00 every 24 Medical (twenty-fo Branch ur) hours for 60 days. nicotine 2021- No [id number] 1{patch Apply 1 Univers mg/24 hr 9-20 11-20 } Patch to ity of patch 00:00: 05:59 area(s) [place] 00 :00 every 24 Medical (twenty-fo Branch ur) hours for 60 days. nicotine 14 2021- No [id number] 1{patch Apply 1 Univers mg/24 hr 9-20 11-20 } Patch to ity of patch 00:00: 05:59 area(s) [place] 00 :00 every 24 Medical (twenty-fo Branch ur) hours for 60 days. nicotine 14 2021- No [id number] 1{patch Apply 1 Univers mg/24 hr 9-20 11-20 } Patch to ity of patch 00:00: 05:59 area(s) [place] 00 :00 every 24 Medical (twenty-fo Branch ur) hours for 60 days. nicotine 2021- No [id number] 1{patch Apply 1 Univers mg/24 hr 9-20 11-20 } Patch to ity of patch 00:00: 05:59 area(s) [place] 00 :00 every 24 Medical (twenty-fo Branch ur) hours for 60 days. nicotine 2021- No [id number] 1{patch Apply 1 Univers mg/24 hr 9-20 11-20 } Patch to ity of patch 00:00: 05:59 area(s) [place] 00 :00 every 24 Medical (twenty-fo Branch ur) hours for 60 days. nicotine 14 2021- No [id number] 1{patch Apply 1 Univers mg/24 hr 9-20 11-20 } Patch to ity of patch 00:00: 05:59 area(s) [place] 00 :00 every 24 Medical (twenty-fo Branch ur) hours for 60 days. nicotine 2021- No [id number] 1{patch Apply 1 Univers mg/24 hr 9-20 11-20 } Patch to ity of patch 00:00: 05:59 area(s) [place] 00 :00 every 24 Medical (twenty-fo Branch ur) hours for 60 days. nicotine 14 No [id number] 1{patch Apply 1 Univers mg/24 hr 9-20 11-20 } Patch to ity of patch 00:00: 05:59 area(s) [place] 00 :00 every 24 Medical (twenty-fo Branch ur) hours for 60 days. nicotine No [id number] 1{patch Apply 1 Univers mg/24 hr 9-20 11-20 } Patch to ity of patch 00:00: 05:59 area(s) [place] 00 :00 every 24 Medical (twenty-fo Branch ur) hours for 60 days. nicotine 14 2021- No [id number] 1{patch Apply 1 Univers mg/24 hr 9-20 11-20 } Patch to ity of patch 00:00: 05:59 area(s) [place] 00 :00 every 24 Medical (twenty-fo Branch ur) hours for 60 days. nicotine 14 No [id number] 1{patch Apply 1 Univers mg/24 hr 9-20 11-20 } Patch to ity of patch 00:00: 05:59 area(s) [place] 00 :00 every 24 Medical (twenty-fo Branch ur) hours for 60 days. nicotine 2021- No [id number] 1{patch Apply 1 Univers mg/24 hr 9-20 11-20 } Patch to ity of patch 00:00: 05:59 area(s) [place] 00 :00 every 24 Medical (twenty- Branch ur) hours for 60 days. nicotine 2021- No [id number] 1{patch Apply 1 Univers mg/24 hr 9-20 11-20 } Patch to ity of patch 00:00: 05:59 area(s) [place] 00 :00 every 24 Medical ([facility] Branch ur) hours for 60 days. nicotine 2021- No [id number] 1{patch Apply 1 Univers mg/24 hr 9-20 11-20 } Patch to ity of patch 00:00: 05:59 area(s) [place] 00 :00 every 24 Medical ([facility] Branch ur) hours for 60 days. nicotine 2021- No [id number] 1{patch Apply 1 Univers mg/24 hr 9-20 11-20 } Patch to ity of patch 00:00: 05:59 area(s) [place] 00 :00 every 24 Medical ([facility] Branch ur) hours for 60 days. nicotine 2021- No [id number] 1{patch Apply 1 Univers mg/24 hr 9-20 11-20 } Patch to ity of patch 00:00: 05:59 area(s) [place] 00 :00 every 24 Medical (twenty- Branch ur) hours for 60 days. nicotine 2021- No [id number] 1{patch Apply 1 Univers mg/24 hr 9-20 11-20 } Patch to ity of patch 00:00: 05:59 area(s) [place] 00 :00 every 24 Medical ([facility] Branch ur) hours for 60 days. nicotine 2021- No [id number] 1{patch Apply 1 Univers mg/24 hr 9-20 11-20 } Patch to ity of patch 00:00: 05:59 area(s) [place] 00 :00 every 24 Medical (twenty-fo Branch ur) hours for 60 days. nicotine 2021- No [id number] 1{patch Apply 1 Univers mg/24 hr 9-20 11-20 } Patch to ity of patch 00:00: 05:59 area(s) [place] 00 :00 every 24 Medical (twenty-fo Branch ur) hours for 60 days. nicotine 2021- No [id number] 1{patch Apply 1 Univers mg/24 hr 9-20 11-20 } Patch to ity of patch 00:00: 05:59 area(s) [place] 00 :00 every 24 Medical (twenty-fo Branch ur) hours for 60 days. nicotine 2021- No [id number] 1{patch Apply 1 Univers mg/24 hr 9-20 11-20 } Patch to ity of patch 00:00: 05:59 area(s) [place] 00 :00 every 24 Medical (twenty-fo Branch ur) hours for 60 days. nicotine 2021- No [id number] 1{patch Apply 1 Univers mg/24 hr 9-20 11-20 } Patch to ity of patch 00:00: 05:59 area(s) [place] 00 :00 every 24 Medical (twenty-fo Branch ur) hours for 60 days. nicotine 2021- No [id number] 1{patch Apply 1 Univers mg/24 hr 9-20 11-20 } Patch to ity of patch 00:00: 05:59 area(s) [place] 00 :00 every 24 Medical (twenty-fo Branch ur) hours for 60 days. nicotine 2021- No [id number] 1{patch Apply 1 Univers mg/24 hr 9-20 11-20 } Patch to ity of patch 00:00: 05:59 area(s) [place] 00 :00 every 24 Medical (twenty-fo Branch ur) hours for 60 days. nicotine 2021- No [id number] 1{patch Apply 1 Univers mg/24 hr 9-20 11-20 } Patch to ity of patch 00:00: 05:59 area(s) [place] 00 :00 every 24 Medical (twenty-fo Branch ur) hours for 60 days. nicotine 2021- No [id number] 1{patch Apply 1 Univers mg/24 hr 9- 11-20 } Patch to ity of patch 00:00: 05:59 area(s) [place] 00 :00 every 24 Medical ([facility] ur) hours for 60 days. nicotine 14 2021- No [id number] 1{patch Apply 1 Univers mg/24 hr 9-20 11-20 } Patch to ity of patch 00:00: 05:59 [facility](s) [place] 00 :00 every 24 Medical ([facility] ur) hours for 60 days. ferrous 2021- No [id number] 325mg Take 1 Un nando sulfate 325 9-20 10-19 tablet by it y of mg (65 mg 00:00: 00:00 mouth in [place]) 00 :00 the Medical tablet morning Branch for 90 days. ticagrelor 2021- No [id number] 90mg Take 1 Univers 90 mg 9-20 10-19 tablet by ity of tablet 00:00: 00:00 mouth in [place] 00 :00 the Medical morning Branch and 1 tablet in the evening. Do all this for 360 days. ferrous 2021- No [id number] 325mg Take 1 Un nando sulfate 325 -20 10-19 tablet by it y of mg (65 mg 00:00: 00:00 mouth in [place]) 00 :00 the Medical tablet morning Branch for 90 days. ticagrelor 2021- No [id number] 90mg Take 1 Univers 90 mg 9-20 10-19 tablet by ity of tablet 00:00: 00:00 mouth in [place] 00 :00 the Medical morning Branch and 1 tablet in the evening. Do all this for 360 days. NaCl 0.9% 2021- No 1000mL at 75 Univ ers (NS) IV 05-31 09-20 mL/hr, IV ity of infusion 23:15: 16:43 Infusion, [place] 1,000 mL 00 :09 CONTINUOUS Medic al , Starting Branch on Tue05/31/22 at 1815, Until Tue06/01/22 at 1143, Routine aspirin Yes 325mg 325 mg, Univer s tablet 325 - Oral, ity of mg 20:47: PRE-PROCED [place] 31 URE ONCE, Medical 1 dose, Branch Starting on Tue05/31/22 at 1547, Until Discontinu ed, Routine, Surgery/Pr ocedure, CV Preprocedu re aspirin Yes 325mg 325 mg, Univer s tablet 325 05-31 Oral, ity of mg 20:47: PRE-PROCED [place] 31 URE ONCE, Medical 1 dose, Branch Starting on Tue05/31/22 at 1547, Until Discontinu ed, Routine, Surgery/Pr ocedure, CV Preprocedu re iohexol 2021- No ONCE INTRA Uni vers (OMNIPAQUE 05-31 PROCEDURE, it y of 300-100 mL) 20:24: 20:39 [place] injection 19 :12 on [facility] 05/31/22 at Branch 1524, Until [facility] 05/31/22 at 1539, Routine, CV Intraproce dure NaCl 0.9% 2021- No CONTINUOUS U nivers (NS) IV 05-31 PRN, ity of infusion 20:02: 20:02 [place] 27 :27 on [facility] 05/31/22 at Branch 1502, Until Discontinu ed, Routine, CV Intraproce dure ticagrelor 2021- No ONCE INTRA Univers (BRILINTA) 05-31 PROCEDURE, it y of tablet 19:41: 20:39 Starting [place] 13 :12 on [facility] 05/31/22 at Branch 1441, Until Tue05/31/22 at 1539, Routine, CV Intraproce dure nitroglycer 2021- No ONCE INTRA Univers in (TRIDIL) 05-31 PROCEDURE, i ty of 2 mg in 10 18:58: 20:39 [place] mL D5W for 06 :12 on [facility] Medical Cardiac 05/31/22 at Branch Cath 1358, Until Tue05/31/22 at 1539, Routine, CV Intraproce dure heparin 2021- No ONCE INTRA Uni vers 1,000 05-31 PROCEDURE, ity of unit/mL 18:57: 20:39 Starting [place] injection 50 :12 on [facility] 05/31/22 at Branch 1357, Until [facility] 05/31/22 at 1539, Routine, CV Intraproce dure lidocaine 2021- No ONCE INTRA U nivers 1% (PF) 05-31 PROCEDURE, ity o f (XYLOCAINE) 18:53: 20:39 [place] injection 01 :12 on [facility] 05/31/22 at Branch 1353, Until 05/31/22 at 1539, Routine, CV Intraproce dure midazolam 2021- No ONCE INTRA U nivers (VERSED) 05-31 PROCEDURE, ity of injection 18:50: 20:39 Starting [place] 02 :12 on [facility] 05/31/22 at Branch 1350, Until 05/31/22 at 1539, Routine, CV Intraproce dure FENTanyl PF 2021- No ONCE INTRA Univers (SUBLIMAZE 05-31 PROCEDURE, it y of (PF)) 18:49: 20:39 Starting [place] injection 43 :12 on [facility] 05/31/22 at Branch 1349, Until [facility] 05/31/22 at 1539, Routine, CV Intraproce dure acetaminoph Yes 650mg 650 mg, Un nando en 05-31 Oral, ity of (TYLENOL) 01:48: Q6HPRN, [place] tablet 650 42 Starting Medic al mg on [facility] 05/30/22 at 2047, Until Discontinu ed, Routine, Pain (scale 1-3), Pain (scale 4-6) acetaminoph Yes 650mg 650 mg, Un nando en 05-31 Oral, ity of (TYLENOL) 01:48: Q6HPRN, [place] tablet 650 42 Starting Medic al mg on [facility] 05/30/22 at 2047, Until Discontinu ed, Routine, Pain (scale 1-3), Pain (scale 4-6) isosorbide 2021- No 30mg 30 mg, Univ ers mononitrate 05-30 Oral, ity of (IMDUR) 24 14:00: 16:58 DAILY, [place] hr tablet 00 :17 First dose Medi laura 30 mg on [facility] 05/30/22 at 0900, Until Discontinu ed, Routine magnesium 2021- No 2g 2 g, IV Univ ers sulfate in 05-30 Piggyback, it y of water 2 13:00: 15:17 Administer [place] gram/50 mL 00 :00 over 60 Medica l (4 %) Minutes, Branch infusion 2 ONCE, 1 g dose, On 05/30/22 at 0800, Routine carvediloL 2021- No 6.25mg 6.25 mg, Univers (COREG) 05-29 09-20 Oral, BID ity of tablet 6.25 22:00: 12:48 MEALS, [place] mg 00 :55 First dose Medical on [facility] 05/29/22 at 1700, Until Discontinu ed, Routine nicotine Yes 1{patch 1 Patch, Un nando (NICODERM) 05-29 } Topical, ity o f 14 mg/24 hr 17:28: Administer [place] patch 1 19 over 24 Medical Patch Hours, Branch Q24H, First dose (after last modificati on) on [facility] 05/29/22 at 1230, Until Discontinu ed, Routine nicotine Yes 1{patch 1 Patch, Un nando (NICODERM) 05-29 } Topical, ity o f 14 mg/24 hr 17:28: Administer [place] patch 1 19 over 24 Medical Patch Hours, Branch Q24H, First dose (after last modificati on) on [facility] 05/29/22 at 1230, Until Discontinu ed, Routine atorvastati 2021- No 40mg 40 mg, Uni vers n (LIPITOR) 05-29 09-19 Oral, QHS, i ty of tablet 40 02:00: 22:12 First dose [place] mg 00 :27 on [facility] 05/28/22 at Branch 2100, Until Discontinu ed, Routine Sliding Yes [facility] Scale 9-16 us, TID ity of Insulin - 22:00: MEALS+HS, [place] Lispro 00 First dose Medical (HumaLOG) + on Tue [facility] 05/28/22 at Testing 1700, Until Discontinu ed, Routine Sliding [facility] 9-16 us, TID ity of Insulin - 22:00: MEALS+HS, [place] Lispro 00 First dose Medical (HumaLOG) + on Tue [facility] 05/28/22 at Testing 1700, Until Discontinu ed, Routine glucagon 0 Yes 1mg 1 mg, Univers (GLUCAGEN 05-28 Intramuscu ity of DIAGNOSTIC 19:16: lar, PRN, [place] KIT) 04 Starting Medical injection 1 on Tue Branch mg 05/28/22 at 1416, Until Discontinu ed, MARCELA, Blood Glucose < or = 70 mg/dL and patient is unable to swallow or has mental changes. dextrose 50 2021-0 Yes 25mL 25 mL, Univ ers % in water 05-28 Slow IV ity of (D50W) 19:16: Push, PRN, [place] injection 04 Starting Medica l 25 mL on Tue Branch 05/28/22 at 1416, Until Discontinu ed, MARCELA, Blood Glucose < or = 70 mg/dL and patient is unable to swallow or has mental status changes. glucagon 0 Yes 1mg 1 mg, Univers (GLUCAGEN 05-28 Intramuscu ity of DIAGNOSTIC 19:16: lar, PRN, [place] KIT) 04 Starting Medical injection 1 on Tue Branch 05/28/22 at 1416, Until Discontinu ed, MARCELA, Blood Glucose < or = 70 mg/dL and patient is unable to swallow or has mental changes. dextrose 50 2021-0 Yes 25mL 25 mL, Univ ers % in water 05-28 Slow IV ity of (D50W) 19:16: Push, PRN, [place] injection 04 Starting Medica l 25 mL on Tue Branch 05/28/22 at 1416, Until Discontinu ed, MARCELA, Blood Glucose < or = 70 mg/dL and patient is unable to swallow or has mental status changes. metoprolol 2021- No 25mg 25 mg, Univ ers succinate 05-2817 Oral, ity of XL (TOPROL 14:15: 15:31 DAILY, [place] XL) tablet 00 :50 First dose Med ical 25 mg on Tue Branch 05/28/22 at 0915, Until Discontinu ed, Routine HEPARIN 2021- No 4000U 4,000 Univers SODIUM 05-2816 Units, IV ity of (PORCINE) 14:15: 15:21 [...] Rang e, Dosing and Testing: &nbs p;FOR [place], [facility], AND [facility] C[facility]USES ONLY - aPTT < 35: & [...] INITIAL BOLUS OR INITIAL INFUSION RATE.
ferrous 2022-0 Yes 325mg 325 mg, Univer s sulfate [...] Fri Branch 05/28/22 at 0045, Routine aspirin Yes 81mg 81 mg, Univers chewable 05-28 Oral, QAM ity of tablet 81 05:00: WITH [place] mg 00 BREAKFAST, Medical First dose Branch on Tue05/28/22 at 0000, Until Discontinu ed, Routine sennosides Yes 8.6mg 8.6 mg, Uni vers (SENOKOT) 05-28 Oral, BID, ity of tablet 8.6 05:00: First dose [place] mg 00 on Fri Medical 05/28/22 at Branch 0000, Until Discontinu ed, Routine docusate Yes 100mg 100 mg, Unive rs (COLACE) 05-28 Oral, BID, ity o f capsule 100 05:00: First dose [place] mg 00 on Tue Medical 05/28/22 at Branch 0000, Until Discontinu ed, Routine divalproex 2021-0 Yes 500mg 500 mg, Uni vers (DEPAKOTE) 16 Oral, QPM, ity of EC tablet 05:00: First dose [place] 500 mg 00 on Tue Medical 05/28/22 at Branch 0000, Until Discontinu ed aspirin 2021-0 Yes 81mg 81 mg, Univers chewable 05-28 Oral, QAM ity of tablet 81 05:00: WITH [place] mg 00 BREAKFAST, Medical First dose Branch on Tue05/28/22 at 0000, Until Discontinu ed, Routine sennosides 2021-0 Yes 8.6mg 8.6 mg, Uni vers (SENOKOT) 05-28 Oral, BID, ity of tablet 8.6 05:00: First dose [place] exas mg 00 on Tue [facility] 05/28/22 at Branch 0000, Until Discontinu ed, Routine docusate 0 Yes 100mg 100 mg, Unive rs (COLACE) 05-28 Oral, BID, ity o f capsule 100 05:00: First dose [place] mg 00 on Tue Medical 05/28/22 at Branch 0000, Until Discontinu ed, Routine divalproex 2021-0 Yes 500mg 500 mg, Uni vers (DEPAKOTE) 05-28 Oral, QPM, ity of EC tablet 05:00: First dose [place] 500 mg 00 on Tue [facility] 05/28/22 at Branch 0000, Until Discontinu ed pantoprazol 2021-0 2021- No 40mg 40 mg, Uni vers e 05-28 Slow IV ity of (PROTONIX) 05:00: 20:04 Push, [place] injection 00 :03 Q12H, Medical 40 mg First dose Branch on Tue05/28/22 at 0000, Until Discontinu ed morpHINE (2 [...] Routine, Pain (scale 7-10), Chest pain ondansetron 0 Yes 4mg 4 mg, Slow Univers (ZOFRAN 16 IV Push, ity of (PF)) 04:51: Q6HPRN, [place] injection 4 17 Starting Medi laura mg on [facility] 05/27/22 at 2351, Until Discontinu ed, Routine, Nausea and Vomiting (N/V) ondansetron 0 Yes 4mg 4 mg, Slow Univers (ZOFRAN 05-28 IV Push, ity of (PF)) 04:51: Q6HPRN, [place] injection 4 17 Starting Medi laura mg on [facility] 05/27/22 at 2351, Until Discontinu ed, Routine, Nausea and Vomiting (N/V) aspirin 2021- No 324mg 324 mg, Unive rs chewable 05-28 Oral, ity of tablet 324 01:15: 00:10 ONCE, 1 Jimmy as mg 00 :00 dose, On Medical [facility] 05/27/22 at 2015, Routine famotidine 2021- No 20mg 20 mg, Univ ers (PEPCID 05-28 Slow IV ity of (PF)) 00:30: 23:50 Push, [place] injection 00 :00 ONCE, 1 Medical 20 mg dose, On Branch [facility] 05/27/22 at 1930, Routine maalox:diph 2021-0 2021- No 15mL 15 mL, Uni vers enhydrAMINE 05-27 Oral, ity of :lidocaine 23:30: 23:50 ONCE, 1 Jimmy as 2 % viscous 00 :00 dose, On Medi laura 1:1:1 [facility] ([facility] 05/27/22 at [facility]) 1830, oral Routine suspension 15 mL propranolol Yes 60 mg = 1 M emoria 60 mg oral 3-11 cap, PO, l capsule, 16:31: Daily, # Ariana nn extended 00 30 cap, 3 release Refill(s), Pharmacy: [facility] #[id number], 156.21, cm, 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, 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, 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, kg, 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, Weight 24 HR 2022-0 Yes 500 mg = 1 Memori a Divalproex 3-11 tab, PO, l Sodium 500 16:31: Bedtime, # H ermann MG Extended 00 30 tab, 3 Release Refill(s), Tablet Pharmacy: [Depakote] [facility] #[id number], 156.21, cm, 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, 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, 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, kg, 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, Weight propranolol 2-0 Yes 60 mg = 1 M emoria 60 mg oral 3-11 cap, PO, l capsule, 16:31: Daily, # Ariana nn extended 00 30 cap, 3 release Refill(s), Pharmacy: [facility] #[id number], 156.21, cm, 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, 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, 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, kg, 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, Weight 24 HR 2-0 Yes 500 mg = 1 Memori a Divalproex 3-11 tab, PO, l Sodium 500 16:31: Bedtime, # H ermann MG Extended 00 30 tab, 3 Release Refill(s), Tablet Pharmacy: [Depakote] [facility] #[id number], 156.21, cm, 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, 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, 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, kg, 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, Weight propranolol 2-0 Yes 60 mg = 1 M emoria 60 mg oral 3-11 cap, PO, l capsule, 16:31: Daily, # Ariana nn extended 00 30 cap, 3 release Refill(s), Pharmacy: [facility] #[id number], 156.21, cm, 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, 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, 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, kg, 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, Weight 24 HR 2022-0 Yes 500 mg = 1 Memori a Divalproex 3-11 tab, PO, l Sodium 500 16:31: Bedtime, # H ermann MG Extended 00 30 tab, 3 Release Refill(s), Tablet Pharmacy: [Depakote] [facility] #[id number], 156.21, cm, 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, 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, 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, kg, 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, Weight propranolol 2022-0 Yes 60 mg = 1 M emoria 60 mg oral 3-11 cap, PO, l capsule, 16:31: Daily, # Ariana nn extended 30 cap, 3 release Refill(s), Pharmacy: [facility] #[id number], 156.21, cm, 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, Height, 117.273, kg, 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, Weight 24 HR 2022-0 Yes 500 mg = 1 Memori a Divalproex 3-11 tab, PO, l Sodium 500 16:31: Bedtime, # H ermann MG Extended 30 tab, 3 Release Refill(s), Tablet Pharmacy: [Depakote] [facility] #[id number], 156.21, cm, 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, Height, 117.273, kg, 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, Weight propranolol 2022-0 Yes 60 mg = 1 M emoria 60 mg oral 3-11 cap, PO, l capsule, 16:31: Daily, # Ariana nn extended 00 30 cap, 3 release Refill(s), Pharmacy: [facility] #[id number], 156.21, cm, 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, Height, 117.273, kg, 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, Weight 24 HR 2022-0 Yes 500 mg = 1 Memori a Divalproex 3-11 tab, PO, l Sodium 500 16:31: Bedtime, # H ermann MG Extended 00 30 tab, 3 Release Refill(s), Tablet Pharmacy: [Depakote] [facility] #[id number], 156.21, cm, 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, Height, 117.273, kg, 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, Weight propranolol 2022-0 Yes 60 mg = 1 M emoria 60 mg oral 3-11 cap, PO, l capsule, 16:31: Daily, # Ariana nn extended 00 30 cap, 3 release Refill(s), Pharmacy: [facility] #[id number], 156.21, cm, 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, Height, 117.273, kg, 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, Weight 24 HR 2021-0 Yes 500 mg = 1 Memori a Divalproex 3-11 tab, PO, l Sodium 500 16:31: Bedtime, # H ermann MG Extended 00 30 tab, 3 Release Refill(s), Tablet Pharmacy: [Depakote] [facility] #[id number], 156.21, cm, 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, Height, 117.273, kg, 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, Weight propranolol 2021-0 Yes 60 mg = 1 M emoria 60 mg oral 3-11 cap, PO, l capsule, 16:31: Daily, # Ariana nn extended 00 30 cap, 3 release Refill(s), Pharmacy: [facility] #[id number], 156.21, cm, 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, Height, 117.273, kg, 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, Weight 24 HR 2021-0 Yes 500 mg = 1 Memori a Divalproex 3-11 tab, PO, l Sodium 500 16:31: Bedtime, # H ermann MG Extended 00 30 tab, 3 Release Refill(s), Tablet Pharmacy: [Depakote] [facility] #[id number], 156.21, cm, 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, Height, 117.273, kg, 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, Weight propranolol 2021-0 Yes 60 mg = 1 M emoria 60 mg oral 3-11 cap, PO, l capsule, 16:31: Daily, # Ariana nn extended 00 30 cap, 3 release Refill(s), Pharmacy: [facility] #[id number], 156.21, cm, 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, Height, 117.273, kg, 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, Weight 24 HR 2021-0 Yes 500 mg = 1 Memori a Divalproex 3-11 tab, PO, l Sodium 500 16:31: Bedtime, # H ermann MG Extended 00 30 tab, 3 Release Refill(s), Tablet Pharmacy: [Depakote] [facility] #[id number], 156.21, cm, 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, Height, 117.273, kg, 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, Weight propranolol 2021-0 Yes 60 mg = 1 M emoria 60 mg oral 3-11 cap, PO, l capsule, 16:31: Daily, # Ariana nn extended 00 30 cap, 3 release Refill(s), Pharmacy: [facility] #[id number], 156.21, cm, 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, Height, 117.273, kg, 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, Weight 24 HR 2021-0 Yes 500 mg = 1 Memori a Divalproex 3-11 tab, PO, l Sodium 500 16:31: Bedtime, # H ermann MG Extended 00 30 tab, 3 Release Refill(s), Tablet Pharmacy: [Depakote] [facility] #[id number], 156.21, cm, 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, Height, 117.273, kg, 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, Weight propranolol 2021-0 Yes 60 mg = 1 M emoria 60 mg oral 3-11 cap, PO, l capsule, 16:31: Daily, # Ariana nn extended 00 30 cap, 3 release Refill(s), Pharmacy: [facility] #[id number], 156.21, cm, 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, Height, 117.273, kg, 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, Weight 24 HR 2021-0 Yes 500 mg = 1 Memori a Divalproex 3-11 tab, PO, l Sodium 500 16:31: Bedtime, # H ermann MG Extended 00 30 tab, 3 Release Refill(s), Tablet Pharmacy: [Depakote] [facility] #[id number], 156.21, cm, 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, Height, 117.273, kg, 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, Weight propranolol 2-0 Yes 60 mg = 1 M emoria 60 mg oral 3-11 cap, PO, l capsule, 16:31: Daily, # Ariana nn extended 00 30 cap, 3 release Refill(s), Pharmacy: [facility] #[id number], 156.21, cm, 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, Height, 117.273, kg, 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, Weight 24 HR 2022-0 Yes 500 mg = 1 Memori a Divalproex 3-11 tab, PO, l Sodium 500 16:31: Bedtime, # H ermann MG Extended 00 30 tab, 3 Release Refill(s), Tablet Pharmacy: [Depakote] [facility] #[id number], 156.21, cm, 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, Height, 117.273, kg, 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, Weight propranolol 2-0 Yes 60 mg = 1 M emoria 60 mg oral 3-11 cap, PO, l capsule, 16:31: Daily, # Ariana nn extended 00 30 cap, 3 release Refill(s), Pharmacy: [facility] #[id number], 156.21, cm, 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, Height, 117.273, kg, 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, Weight 24 HR 2-0 Yes 500 mg = 1 Memori a Divalproex 3-11 tab, PO, l Sodium 500 16:31: Bedtime, # H ermann MG Extended 00 30 tab, 3 Release Refill(s), Tablet Pharmacy: [Depakote] [facility] #[id number], 156.21, cm, 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, Height, 117.273, kg, 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, Weight propranolol 2022-0 Yes 60 mg = 1 M emoria 60 mg oral 3-11 cap, PO, l capsule, 16:31: Daily, # Ariana nn extended 00 30 cap, 3 release Refill(s), Pharmacy: [facility] #[id number], 156.21, cm, 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, Height, 117.273, kg, 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, Weight 24 HR 2021-0 Yes 500 mg = 1 Memori a Divalproex 3-11 tab, PO, l Sodium 500 16:31: Bedtime, # H ermann MG Extended 00 30 tab, 3 Release Refill(s), Tablet Pharmacy: [Depakote] [facility] #[id number], 156.21, cm, 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, Height, 117.273, kg, 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, Weight propranolol 2021-0 Yes 60 mg = 1 M emoria 60 mg oral 3-11 cap, PO, l capsule, 16:31: Daily, # Ariana nn extended 00 30 cap, 3 release Refill(s), Pharmacy: [facility] #[id number], 156.21, cm, 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, Height, 117.273, kg, 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, Weight 24 HR 2021-0 Yes 500 mg = 1 Memori a Divalproex 3-11 tab, PO, l Sodium 500 16:31: Bedtime, # H ermann MG Extended 00 30 tab, 3 Release Refill(s), Tablet Pharmacy: [Depakote] [facility] #[id number], 156.21, cm, 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, Height, 117.273, kg, 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, Weight propranolol 2-0 Yes 60 mg = 1 M emoria 60 mg oral 3-11 cap, PO, l capsule, 16:31: Daily, # Ariana nn extended 00 30 cap, 3 release Refill(s), Pharmacy: [facility] #[id number], 156.21, cm, 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, Height, 117.273, kg, 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, Weight 24 HR 2-0 Yes 500 mg = 1 Memori a Divalproex 3-11 tab, PO, l Sodium 500 16:31: Bedtime, # H ermann MG Extended 00 30 tab, 3 Release Refill(s), Tablet Pharmacy: [Depakote] [facility] #[id number], 156.21, cm, 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, Height, 117.273, kg, 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, Weight Effexor XR 2022-0 No 37.5 mg = Me moria 37.5 mg 3-09 1 cap, PO, l oral 17:14: Daily, # Rustam capsule, 00 90 cap, 3 extended Refill(s), release Pharmacy: [facility] #[id number], 154.94, cm, 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, Height, 116.364, kg, 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, Weight Effexor XR 2022-0 No 37.5 mg = Me moria 37.5 mg 3-09 1 cap, PO, l oral 17:14: Daily, # Rustam capsule, 00 90 cap, 3 extended Refill(s), release Pharmacy: [facility] #[id number], 154.94, cm, 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, Height, 116.364, kg, 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, Weight Effexor XR 2022-0 No 37.5 mg = Me moria 37.5 mg 3-09 1 cap, PO, l oral 17:14: Daily, # [place] capsule, 00 90 cap, 3 extended Refill(s), release Pharmacy: [facility] #[id number], 154.94, cm, 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, Height, 116.364, kg, 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, Weight Effexor XR 2022-0 No 37.5 mg = Me moria 37.5 mg 3-09 1 cap, PO, l oral 17:14: Daily, # Rustam capsule, 00 90 cap, 3 extended Refill(s), release Pharmacy: [facility] #[id number], 154.94, cm, 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, Height, 116.364, kg, 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, Weight Effexor XR 2022-0 No 37.5 mg = Me moria 37.5 mg 3-09 1 cap, PO, l oral 17:14: Daily, # Rustam capsule, 00 90 cap, 3 extended Refill(s), release Pharmacy: [facility] #[id number], 154.94, cm, 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, Height, 116.364, kg, 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, Weight Effexor XR 2022-0 No 37.5 mg = Me moria 37.5 mg 3-09 1 cap, PO, l oral 17:14: Daily, # Rustam capsule, 00 90 cap, 3 extended Refill(s), release Pharmacy: [facility] #[id number], 154.94, cm, 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, Height, 116.364, kg, 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, Weight Effexor XR 2022-0 No 37.5 mg = Me moria 37.5 mg 3-09 1 cap, PO, l oral 17:14: Daily, # Rustam capsule, 00 90 cap, 3 extended Refill(s), release Pharmacy: [facility] #[id number], 154.94, cm, 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, Height, 116.364, kg, 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, Weight Effexor XR 2022-0 No 37.5 mg = Me moria 37.5 mg 3-09 1 cap, PO, l oral 17:14: Daily, # Rustam capsule, 00 90 cap, 3 extended Refill(s), release Pharmacy: [facility] #[id number], 154.94, cm, 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, Height, 116.364, kg, 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, Weight Effexor XR 2022-0 No 37.5 mg = Me moria 37.5 mg 3-09 1 cap, PO, l oral 17:14: Daily, # [place] capsule, 00 90 cap, 3 extended Refill(s), release Pharmacy: [facility] #[id number], 154.94, cm, 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, Height, 116.364, kg, 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, Weight Effexor XR 2022-0 No 37.5 mg = Me moria 37.5 mg 3-09 1 cap, PO, l oral 17:14: Daily, # [place] capsule, 00 90 cap, 3 extended Refill(s), release Pharmacy: [facility] #[id number], 154.94, cm, 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, Height, 116.364, kg, 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, Weight Effexor XR 2022-0 No 37.5 mg = Me moria 37.5 mg 3-09 1 cap, PO, l oral 17:14: Daily, # [place] capsule, 00 90 cap, 3 extended Refill(s), release Pharmacy: [facility] #[id number], 154.94, cm, 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, Height, 116.364, kg, 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, Weight Effexor XR 2022-0 No 37.5 mg = Me moria 37.5 mg 3-09 1 cap, PO, l oral 17:14: Daily, # [place] capsule, 00 90 cap, 3 extended Refill(s), release Pharmacy: [facility] #[id number], 154.94, cm, 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, Height, 116.364, kg, 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, Weight Effexor XR 2022-0 No 37.5 mg = Me moria 37.5 mg 3-09 1 cap, PO, l oral 17:14: Daily, # [place] capsule, 00 90 cap, 3 extended Refill(s), release Pharmacy: [facility] #[id number], 154.94, cm, 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, Height, 116.364, kg, 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, Weight Effexor XR 2022-0 No 37.5 mg = Me moria 37.5 mg 3-09 1 cap, PO, l oral 17:14: Daily, # [place] capsule, 00 90 cap, 3 extended Refill(s), release Pharmacy: [facility] #[id number], 154.94, cm, 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, Height, 116.364, kg, 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, Weight Effexor XR 2022-0 No 37.5 mg = Me moria 37.5 mg 3-09 1 cap, PO, l oral 17:14: Daily, # [place] capsule, 00 90 cap, 3 extended Refill(s), release Pharmacy: [facility] #[id number], 154.94, cm, 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, Height, 116.364, kg, 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, Weight Effexor XR 2022-0 No 37.5 mg = Me moria 37.5 mg 3-07 1 cap, PO, l oral 16:07: Daily, # [place] capsule, 00 90 cap, 3 extended Refill(s), release Pharmacy: [facility] #[id number], 154.94, cm, 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, Height, 116.364, kg, 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, Weight Effexor XR 2022-0 No 37.5 mg = Me moria 37.5 mg 3-07 1 cap, PO, l oral 16:07: Daily, # [place] capsule, 00 90 cap, 3 extended Refill(s), release Pharmacy: [facility] #[id number], 154.94, cm, 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, Height, 116.364, kg, 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, Weight Effexor XR 2022-0 No 37.5 mg = Me moria 37.5 mg 3-07 1 cap, PO, l oral 16:07: Daily, # [place] capsule, 00 90 cap, 3 extended Refill(s), release Pharmacy: [facility] #[id number], 154.94, cm, 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, Height, 116.364, kg, 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, Weight Effexor XR 2022-0 No 37.5 mg = Me moria 37.5 mg 3-07 1 cap, PO, l oral 16:07: Daily, # [place] capsule, 00 90 cap, 3 extended Refill(s), release Pharmacy: [facility] #[id number], 154.94, cm, 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, Height, 116.364, kg, 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, Weight Effexor XR 2022-0 No 37.5 mg = Me moria 37.5 mg 3-07 1 cap, PO, l oral 16:07: Daily, # [place] capsule, 00 90 cap, 3 extended Refill(s), release Pharmacy: [facility] #[id number], 154.94, cm, 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, Height, 116.364, kg, 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, Weight Effexor XR 2022-0 No 37.5 mg = Me moria 37.5 mg 3-07 1 cap, PO, l oral 16:07: Daily, # [place] capsule, 00 90 cap, 3 extended Refill(s), release Pharmacy: [facility] #[id number], 154.94, cm, 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, Height, 116.364, kg, 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, Weight Effexor XR 2022-0 No 37.5 mg = Me moria 37.5 mg 3-07 1 cap, PO, l oral 16:07: Daily, # [place] capsule, 00 90 cap, 3 extended Refill(s), release Pharmacy: [facility] #[id number], 154.94, cm, 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, Height, 116.364, kg, 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, Weight Effexor XR 2022-0 No 37.5 mg = Me moria 37.5 mg 3-07 1 cap, PO, l oral 16:07: Daily, # [place] capsule, 00 90 cap, 3 extended Refill(s), release Pharmacy: [facility] #[id number], 154.94, cm, 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, Height, 116.364, kg, 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, Weight Effexor XR 2022-0 No 37.5 mg = Me moria 37.5 mg 3-07 1 cap, PO, l oral 16:07: Daily, # [place] capsule, 00 90 cap, 3 extended Refill(s), release Pharmacy: [facility] #[id number], 154.94, cm, 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, Height, 116.364, kg, 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, Weight Effexor XR 2022-0 No 37.5 mg = Me moria 37.5 mg 3-07 1 cap, PO, l oral 16:07: Daily, # [place] capsule, 00 90 cap, 3 extended Refill(s), release Pharmacy: [facility] #[id number], 154.94, cm, 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, Height, 116.364, kg, 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, Weight Effexor XR 2022-0 No 37.5 mg = Me moria 37.5 mg 3-07 1 cap, PO, l oral 16:07: Daily, # [place] capsule, 00 90 cap, 3 extended Refill(s), release Pharmacy: [facility] #[id number], 154.94, cm, 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, Height, 116.364, kg, 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, Weight Effexor XR 2022-0 No 37.5 mg = Me moria 37.5 mg 3-07 1 cap, PO, l oral 16:07: Daily, # [place] capsule, 00 90 cap, 3 extended Refill(s), release Pharmacy: [facility] #[id number], 154.94, cm, 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, Height, 116.364, kg, 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, Weight Effexor XR 2022-0 No 37.5 mg = Me moria 37.5 mg 3-07 1 cap, PO, l oral 16:07: Daily, # [place] capsule, 00 90 cap, 3 extended Refill(s), release Pharmacy: [facility] #[id number], 154.94, cm, 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, Height, 116.364, kg, 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, Weight Effexor XR 2022-0 No 37.5 mg = Me moria 37.5 mg 3-07 1 cap, PO, l oral 16:07: Daily, # [place] capsule, 00 90 cap, 3 extended Refill(s), release Pharmacy: [id number], 154.94, cm, 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, Height, 116.364, kg, 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, Weight Effexor XR 2021-0 No 37.5 mg = Me moria 37.5 mg 3-07 1 cap, PO, l oral 16:07: Daily, # [place] capsule, 00 90 cap, 3 extended Refill(s), release Pharmacy: [id number], 154.94, cm, 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, Height, 116.364, kg, 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, Weight 24 HR 2021-0 Yes 37.5 mg = Memoria venlafaxine 2-09 1 cap, PO, l 37.5 MG 16:12: Daily, # Sherwin n Extended 00 30 cap, 3 Release Refill(s), Capsule Pharmacy: [Effexor] [id number], 154.94, cm, 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, Height, 116.364, kg, 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, Weight 24 HR 2021-0 Yes 37.5 mg = Memoria venlafaxine 2-09 1 cap, PO, l 37.5 MG 16:12: Daily, # Sherwin n Extended 00 30 cap, 3 Release Refill(s), Capsule Pharmacy: [Effexor] [id number], 154.94, cm, 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, Height, 116.364, kg, 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, Weight 24 HR 2021-0 Yes 37.5 mg = [facility] venlafaxine 2-09 1 cap, PO, l 37.5 MG 16:12: Daily, # [place] n Extended 00 30 cap, 3 Release Refill(s), [facility]: [Effexor] [id number], 154.94, cm, 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, Height, 116.364, kg, 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, Weight 24 HR 0 Yes 37.5 mg = [facility] venlafaxine 2-09 1 cap, PO, l 37.5 MG 16:12: Daily, # [place] n Extended 00 30 cap, 3 Release Refill(s), [facility]: [Effexor] [id number], 154.94, cm, 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, Height, 116.364, kg, 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, Weight 24 HR 0 Yes 37.5 mg = [facility] venlafaxine 2-09 1 cap, PO, l 37.5 MG 16:12: Daily, # [place] n Extended 00 30 cap, 3 Release Refill(s), [facility]: [Effexor] [id number], 154.94, cm, 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, Height, 116.364, kg, 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, Weight 24 HR 0 Yes 37.5 mg = [facility] venlafaxine 2-09 1 cap, PO, l 37.5 MG 16:12: Daily, # [place] n Extended 00 30 cap, 3 Release Refill(s), [facility]: [Effexor] [id number], 154.94, cm, 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, Height, 116.364, kg, 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, Weight 24 HR 0 Yes 37.5 mg = [facility] venlafaxine 2-09 1 cap, PO, l 37.5 MG 16:12: Daily, # [place] n Extended 00 30 cap, 3 Release Refill(s), [facility]: [Effexor] [id number], 154.94, cm, 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, Height, 116.364, kg, 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, Weight 24 HR 2021-0 Yes 37.5 mg = [facility] venlafaxine 2-09 1 cap, PO, l 37.5 MG 16:12: Daily, # [place] n Extended 00 30 cap, 3 Release Refill(s), [facility]: [Effexor] [id number], 154.94, cm, 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, Height, 116.364, kg, 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, Weight 24 HR 0 Yes 37.5 mg = [facility] venlafaxine 2-09 1 cap, PO, l 37.5 MG 16:12: Daily, # [place] n Extended 00 30 cap, 3 Release Refill(s), [facility]: [Effexor] [id number], 154.94, cm, 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, Height, 116.364, kg, 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, Weight 24 HR 0 Yes 37.5 mg = [facility] venlafaxine 2-09 1 cap, PO, l 37.5 MG 16:12: Daily, # [place] n Extended 00 30 cap, 3 Release Refill(s), [facility]: [Effexor] [id number], 154.94, cm, 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, Height, 116.364, kg, 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, Weight 24 HR 0 Yes 37.5 mg = [facility] venlafaxine 2-09 1 cap, PO, l 37.5 MG 16:12: Daily, # [place] n Extended 00 30 cap, 3 Release Refill(s), [facility]: [Effexor] [id number], 154.94, cm, 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, Height, 116.364, kg, 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, Weight 24 HR 0 Yes 37.5 mg = [facility] venlafaxine 2-09 1 cap, PO, l 37.5 MG 16:12: Daily, # [place] n Extended 00 30 cap, 3 Release Refill(s), [facility]: [Effexor] [id number], 154.94, cm, 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, Height, 116.364, kg, 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, Weight 24 HR 2021-0 Yes 37.5 mg = Memoria venlafaxine 2-09 1 cap, PO, l 37.5 MG 16:12: Daily, # [place] n Extended 00 30 cap, 3 Release Refill(s), Capsule Pharmacy: [Effexor] [facility] #[id number], 154.94, cm, 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, Height, 116.364, kg, 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, Weight 24 HR 0 Yes 37.5 mg = Memoria venlafaxine 2-09 1 cap, PO, l 37.5 MG 16:12: Daily, # [place] n Extended 00 30 cap, 3 Release Refill(s), Capsule Pharmacy: [Effexor] [facility] #[id number], 154.94, cm, 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, Height, 116.364, kg, 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, Weight 24 HR 0 Yes 37.5 mg = Memoria venlafaxine 2-09 1 cap, PO, l 37.5 MG 16:12: Daily, # [place] n Extended 00 30 cap, 3 Release Refill(s), Capsule Pharmacy: [Effexor] [facility] #[id number], 154.94, cm, 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, 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, 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, kg, 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, Weight atorvastati 2020-09 Yes = 1 tab, Me moria n 40 mg 2-29 PO, l oral tablet 19:13: Bedtime, # [place] 00 30 tab, 3 Refill(s), Pharmacy: [id number], 154.94, cm, 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, Weight 24 HR 2020-09 No 500 mg = 1 Memori a Divalproex 2-29 tab, PO, l Sodium 500 19:07: Bedtime, # [place] MG Extended 00 90 tab, 3 Release Refill(s), Tablet Pharmacy: [Depakote] [facility] #[id number], 154.94, cm, 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, Height, 116.364, kg, 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, Weight 24 HR 2020-09 No 500 mg = 1 Memori a Divalproex 2-29 tab, PO, l Sodium 500 19:07: Bedtime, # [place] MG Extended 00 90 tab, 3 Release Refill(s), Tablet Pharmacy: [Depakote] [facility] #[id number], 154.94, cm, 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, Height, 116.364, kg, 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, Weight 24 HR 2020-09 No 500 mg = 1 Memori a Divalproex 2-29 tab, PO, l Sodium 500 19:07: Bedtime, # [place] MG Extended 00 90 tab, 3 Release Refill(s), Tablet Pharmacy: [Depakote] [facility] #[id number], 154.94, cm, 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, Height, 116.364, kg, 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, Weight 24 HR 2020-09 No 500 mg = 1 Memori a Divalproex 2-29 tab, PO, l Sodium 500 19:07: Bedtime, # [place] MG Extended 00 90 tab, 3 Release Refill(s), Tablet Pharmacy: [Depakote] [facility] #[id number], 154.94, cm, 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, Height, 116.364, kg, 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, Weight 24 HR 2020-09 No 500 mg = 1 Memori a Divalproex 2-29 tab, PO, l Sodium 500 19:07: Bedtime, # [place] MG Extended 00 90 tab, 3 Release Refill(s), Tablet Pharmacy: [Depakote] [facility] #[id number], 154.94, cm, 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, Height, 116.364, kg, 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, Weight 24 HR 2020-09 No 500 mg = 1 Memori a Divalproex 2-29 tab, PO, l Sodium 500 19:07: Bedtime, # [place] MG Extended 00 90 tab, 3 Release Refill(s), Tablet Pharmacy: [Depakote] [facility] #[id number], 154.94, cm, 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, Height, 116.364, kg, 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, Weight 24 HR 2020-09 No 500 mg = 1 Memori a Divalproex 2-29 tab, PO, l Sodium 500 19:07: Bedtime, # [place] MG Extended 00 90 tab, 3 Release Refill(s), Tablet Pharmacy: [Depakote] [facility] #[id number], 154.94, cm, 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, 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, 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, kg, 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, Weight 24 HR 2020-09 No 500 mg = 1 Memori a Divalproex 2-29 tab, PO, l Sodium 500 19:07: Bedtime, # [place] MG Extended 00 90 tab, 3 Release Refill(s), Tablet Pharmacy: [Depakote] [facility] #[id number], 154.94, cm, 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, 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, 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, kg, 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, Weight 24 HR 2020-09 No 500 mg = 1 Memori a Divalproex 2-29 tab, PO, l Sodium 500 19:07: Bedtime, # [place] MG Extended 00 90 tab, 3 Release Refill(s), Tablet Pharmacy: [Depakote] [id number], 154.94, cm, 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, 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, 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, kg, 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, Weight 24 HR 2020-09 No 500 mg = 1 Memori a Divalproex 2-29 tab, PO, l Sodium 500 19:07: Bedtime, # [place] MG Extended 00 90 tab, 3 Release Refill(s), Tablet Pharmacy: [Depakote] [facility] #[id number], 154.94, cm, 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, 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, 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, kg, 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, Weight 24 HR 2020-09 No 500 mg = 1 Memori a Divalproex 2-29 tab, PO, l Sodium 500 19:07: Bedtime, # [place] MG Extended 00 90 tab, 3 Release Refill(s), Tablet Pharmacy: [Depakote] [id number], 154.94, cm, 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, 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, 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, kg, 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, Weight 24 HR 2020-09 No 500 mg = 1 Memori a Divalproex 2-29 tab, PO, l Sodium 500 19:07: Bedtime, # [place] MG Extended 00 90 tab, 3 Release Refill(s), Tablet Pharmacy: [Depakote] [facility] #[id number], 154.94, cm, 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, 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, 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, kg, 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, Weight 24 HR 2020-09 No 500 mg = 1 Memori a Divalproex 2-29 tab, PO, l Sodium 500 19:07: Bedtime, # [place] MG Extended 00 90 tab, 3 Release Refill(s), Tablet Pharmacy: [Depakote] [facility] #[id number], 154.94, cm, 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, 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, 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, kg, 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, Weight 24 HR 2020-09 No 500 mg = 1 Memori a Divalproex 2-29 tab, PO, l Sodium 500 19:07: Bedtime, # [place] MG Extended 00 90 tab, 3 Release Refill(s), Tablet Pharmacy: [Depakote] [facility] #[id number], 154.94, cm, 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, 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, 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, kg, 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, Weight Docusate 2020-09 Yes 50 mg = 1 Catrachito darlin Sodium 50 1-16 cap, PO, l MG Oral 16:14: BID, 0 [place] Capsule 00 Refill(s) [Colace] Docusate 2020-09 Yes 50 mg = 1 Catrachito darlin Sodium 50 1-16 cap, PO, l MG Oral 16:14: BID, 0 [place] Capsule 00 Refill(s) [Colace] Docusate 2020-09 Yes 50 mg = 1 Catrachito darlin Sodium 50 1-16 cap, PO, l MG Oral 16:14: BID, 0 [place] Capsule 00 Refill(s) [Colace] Docusate 2020-09 Yes [...] PO, l MG Oral 16:14: BID, 0 [place] Capsule 00 Refill(s) [Colace] Docusate 2020-09 Yes 50 mg = 1 Catrachito darlin Sodium 50 1-16 cap, PO, l MG Oral 16:14: BID, 0 [place] Capsule 00 Refill(s) [Colace] Docusate 2020-09 Yes 50 mg = 1 Catrachito darlin Sodium 50 1-16 cap, PO, l MG Oral 16:14: BID, 0 [place] Capsule 00 Refill(s) [Colace] Docusate 2020-09 Yes 50 mg = 1 Catrachito darlin Sodium 50 1-16 cap, PO, l MG Oral 16:14: BID, 0 [place] Capsule 00 Refill(s) [Colace] Docusate 2020-09 Yes 50 mg = 1 Catrachito darlin Sodium 50 1-16 cap, PO, l MG Oral 16:14: BID, 0 [place] Capsule 00 Refill(s) [Colace] Docusate 2020-09 Yes [...] BID, 0 [place] Capsule 00 Refill(s) [Colace] Ofloxacin 3 2020-09 Yes 2 drp, Catrachito darlin MG/ML 1-04 BOTH EYES, l Ophthalmic 15:20: QID, X 7 Her lacy Solution 00 day, # 5 ml, 0 Refill(s), Pharmacy: [facility] #[id number], 154.94, cm, 07/14/21 13:06:00 CDT, Height, 115.818, kg, 07/14/21 13:06:00 CDT, Weight Ofloxacin 3 2020-09 Yes 2 drp, Catrachito darlin MG/ML 1-04 BOTH EYES, l Ophthalmic 15:20: QID, X 7 Her lacy Solution 00 day, # 5 ml, 0 Refill(s), Pharmacy: [facility] #[id number], 154.94, cm, 07/14/21 13:06:00 CDT, Height, 115.818, kg, 07/14/21 13:06:00 CDT, Weight Ofloxacin 2020-09 Yes 2 drp, Catrachito darlin MG/ML 1-04 BOTH EYES, l Ophthalmic 15:20: QID, X 7 Her lacy Solution 00 day, # 5 ml, 0 Refill(s), Pharmacy: [facility] #[id number], 154.94, cm, 07/14/21 13:06:00 CDT, Height, 115.818, kg, 07/14/21 13:06:00 CDT, Weight Ofloxacin 2020-09 Yes 2 drp, Catrachito darlin MG/ML 1-04 BOTH EYES, l Ophthalmic 15:20: QID, X 7 Her lacy Solution 00 day, # 5 ml, 0 Refill(s), Pharmacy: [facility] #[id number], 154.94, cm, 07/14/21 13:06:00 CDT, Height, 115.818, kg, 07/14/21 13:06:00 CDT, Weight Ofloxacin 2020-09 Yes 2 drp, Catrachito darlin MG/ML 1-04 BOTH EYES, l Ophthalmic 15:20: QID, X 7 Her lacy Solution 00 day, # 5 ml, 0 Refill(s), Pharmacy: [facility] #[id number], 154.94, cm, 07/14/21 13:06:00 CDT, Height, 115.818, kg, 07/14/21 13:06:00 CDT, Weight Ofloxacin 3 2020-09 Yes 2 drp, Catrachito darlin MG/ML 1-04 BOTH EYES, l Ophthalmic 15:20: QID, X 7 Her lacy Solution 00 day, # 5 ml, 0 Refill(s), Pharmacy: [facility] #[id number], 154.94, cm, 07/14/21 13:06:00 CDT, Height, 115.818, kg, 07/14/21 13:06:00 CDT, Weight Ofloxacin 3 2020-09 Yes 2 drp, Catrachito darlin MG/ML 1-04 BOTH EYES, l Ophthalmic 15:20: QID, X 7 Her lacy Solution 00 day, # 5 ml, 0 Refill(s), Pharmacy: [facility] #[id number], 154.94, cm, 07/14/21 13:06:00 CDT, Height, 115.818, kg, 07/14/21 13:06:00 CDT, Weight Ofloxacin 3 2020-09 Yes 2 drp, Catrachito darlin MG/ML 1-04 BOTH EYES, l Ophthalmic 15:20: QID, X 7 Her lacy Solution 00 day, # 5 ml, 0 Refill(s), Pharmacy: [facility] #[id number], 154.94, cm, 07/14/21 13:06:00 CDT, Height, 115.818, kg, 07/14/21 13:06:00 CDT, Weight Ofloxacin 3 2020-09 Yes 2 drp, Catrachito darlin MG/ML 1-04 BOTH EYES, l Ophthalmic 15:20: QID, X 7 Her lacy Solution 00 day, # 5 ml, 0 Refill(s), Pharmacy: [facility] #[id number], 154.94, cm, 07/14/21 13:06:00 CDT, Height, 115.818, kg, 07/14/21 13:06:00 CDT, Weight Ofloxacin 3 2020-09 Yes 2 drp, Catrachito darlin MG/ML 1-04 BOTH EYES, l Ophthalmic 15:20: QID, X 7 Her lacy Solution 00 day, # 5 ml, 0 Refill(s), Pharmacy: [facility] #[id number], 154.94, cm, 07/14/21 13:06:00 CDT, Height, 115.818, kg, 07/14/21 13:06:00 CDT, Weight Ofloxacin 3 2020-09 Yes 2 drp, Catrachito darlin MG/ML 1-04 BOTH EYES, l Ophthalmic 15:20: QID, X 7 Her lacy Solution 00 day, # 5 ml, 0 Refill(s), Pharmacy: [facility] #[id number], 154.94, cm, 07/14/21 13:06:00 CDT, Height, 115.818, kg, 07/14/21 13:06:00 CDT, Weight Ofloxacin 3 2020-09 Yes 2 drp, Catrachito darlin MG/ML 1-04 BOTH EYES, l Ophthalmic 15:20: QID, X 7 Her lacy Solution 00 day, # 5 ml, 0 Refill(s), Pharmacy: [facility] #[id number], 154.94, cm, 07/14/21 13:06:00 CDT, Height, 115.818, kg, 07/14/21 13:06:00 CDT, Weight Ofloxacin 3 2020-09 Yes 2 drp, Catrachito darlin MG/ML 1-04 BOTH EYES, l Ophthalmic 15:20: QID, X 7 Her lacy Solution 00 day, # 5 ml, 0 Refill(s), Pharmacy: [facility] #[id number], 154.94, cm, 07/14/21 13:06:00 CDT, Height, 115.818, kg, 07/14/21 13:06:00 CDT, Weight Ofloxacin 3 2020-09 Yes 2 drp, Catrachito darlin MG/ML 1-04 BOTH EYES, l Ophthalmic 15:20: QID, X 7 Her lacy Solution 00 day, # 5 ml, 0 Refill(s), Pharmacy: [facility] #[id number], 154.94, cm, 07/14/21 13:06:00 CDT, Height, 115.818, kg, 07/14/21 13:06:00 CDT, Weight Ofloxacin 3 2020-09 Yes 2 drp, Catrachito darlin MG/ML 1-04 BOTH EYES, l Ophthalmic 15:20: QID, X 7 Her lacy Solution 00 day, # 5 ml, 0 Refill(s), Pharmacy: [facility] #[id number], 154.94, cm, 07/14/21 13:06:00 CDT, Height, 115.818, kg, 07/14/21 13:06:00 CDT, Weight pantoprazol 2020-09 Yes = 1 tab, Me moria e 40 mg 1-02 PO, Daily, l oral 18:18: # 90 tab, [place] enteric 00 3 coated Refill(s), tablet Pharmacy: [facility] #[id number], 154.94, cm, 07/14/21 13:06:00 CDT, Height, 115.818, kg, 07/14/21 13:06:00 CDT, Weight pantoprazol 2020-09 Yes = 1 tab, Me moria e 40 mg 1-02 PO, Daily, l oral 18:18: # 90 tab, [place] enteric 00 3 coated Refill(s), tablet Pharmacy: [facility] #[id number], 154.94, cm, 07/14/21 13:06:00 CDT, Height, 115.818, kg, 07/14/21 13:06:00 CDT, Weight pantoprazol 2020-09 Yes = 1 tab, Me moria e 40 mg 1-02 PO, Daily, l oral 18:18: # 90 tab, [place] enteric 00 3 coated Refill(s), tablet Pharmacy: [facility] #[id number], 154.94, cm, 07/14/21 13:06:00 CDT, Height, 115.818, kg, 07/14/21 13:06:00 CDT, Weight pantoprazol 2020-09 Yes = 1 tab, Me moria e 40 mg 1-02 PO, Daily, l oral 18:18: # 90 tab, [place] enteric 00 3 coated Refill(s), tablet Pharmacy: [facility] #[id number], 154.94, cm, 07/14/21 13:06:00 CDT, Height, 115.818, kg, 07/14/21 13:06:00 CDT, Weight pantoprazol 2020-09 Yes = 1 tab, Me moria e 40 mg 1-02 PO, Daily, l oral 18:18: # 90 tab, [place] enter[facility] 00 3 coated Refill(s), tablet Pharmacy: [facility] #[id number], 154.94, cm, 07/14/21 13:06:00 CDT, Height, 115.818, kg, 07/14/21 13:06:00 CDT, Weight pantoprazol 2020-09 Yes = 1 tab, Me moria e 40 mg 1-02 PO, Daily, l oral 18:18: # 90 tab, [place] [facility] 00 3 coated Refill(s), tablet Pharmacy: [facility] #[id number], 154.94, cm, 07/14/21 13:06:00 CDT, Height, 115.818, kg, 07/14/21 13:06:00 CDT, Weight pantoprazol 2020-09 Yes = 1 tab, Me moria e 40 mg 1-02 PO, Daily, l oral 18:18: # 90 tab, [place] enter[facility] 00 3 coated Refill(s), tablet Pharmacy: [facility] #[id number], 154.94, cm, 07/14/21 13:06:00 CDT, Height, 115.818, kg, 07/14/21 13:06:00 CDT, Weight pantoprazol 2020-09 Yes = 1 tab, Me moria e 40 mg 1-02 PO, Daily, l oral 18:18: # 90 tab, [place] enteric 00 3 coated Refill(s), tablet Pharmacy: [facility] #[id number], 154.94, cm, 07/14/21 13:06:00 CDT, Height, 115.818, kg, 07/14/21 13:06:00 CDT, Weight pantoprazol 2020-09 Yes = 1 tab, Me moria e 40 mg 1-02 PO, Daily, l oral 18:18: # 90 tab, [place] enteric 00 3 coated Refill(s), tablet Pharmacy: [facility] #[id number], 154.94, cm, 07/14/21 13:06:00 CDT, Height, 115.818, kg, 07/14/21 13:06:00 CDT, Weight pantoprazol 2020-09 Yes = 1 tab, Me moria e 40 mg 1-02 PO, Daily, l oral 18:18: # 90 tab, [place] enter[facility] 00 3 coated Refill(s), tablet Pharmacy: [facility] #[id number], 154.94, cm, 07/14/21 13:06:00 CDT, Height, 115.818, kg, 07/14/21 13:06:00 CDT, Weight pantoprazol 2020-09 Yes = 1 tab, Me moria e 40 mg 1-02 PO, Daily, l oral 18:18: # 90 tab, [place] [facility] 00 3 coated Refill(s), tablet Pharmacy: [facility] #[id number], 154.94, cm, 07/14/21 13:06:00 CDT, Height, 115.818, kg, 07/14/21 13:06:00 CDT, Weight pantoprazol 2020-09 Yes = 1 tab, Me moria e 40 mg 1-02 PO, Daily, l oral 18:18: # 90 tab, [place] enteric 00 3 coated Refill(s), tablet Pharmacy: [facility] #[id number], 154.94, cm, 07/14/21 13:06:00 CDT, Height, 115.818, kg, 07/14/21 13:06:00 CDT, Weight pantoprazol 2020-09 Yes = 1 tab, Me moria e 40 mg 1-02 PO, Daily, l oral 18:18: # 90 tab, [place] enteric 00 3 coated Refill(s), tablet Pharmacy: [facility] #[id number], 154.94, cm, 07/14/21 13:06:00 CDT, Height, 115.818, kg, 07/14/21 13:06:00 CDT, Weight pantoprazol 2020-09 Yes = 1 tab, Me moria e 40 mg 1-02 PO, Daily, l oral 18:18: # 90 tab, [place] [facility] 00 3 coated Refill(s), tablet Pharmacy: [facility] #[id number], 154.94, cm, 07/14/21 13:06:00 CDT, Height, 115.818, kg, 07/14/21 13:06:00 CDT, Weight pantoprazol 2020-09 Yes = 1 tab, Me moria e 40 mg 1-02 PO, Daily, l oral 18:18: # 90 tab, [place] [facility] 00 3 coated Refill(s), [id number], 154.94, cm, 07/14/21 13:06:00 CDT, Height, [...] PO, l oral tablet 15:46: Bedtime, # [place] 00 30 tab, 3 Refill(s), Pharmacy: [facility] #[id number], 152.4, cm, 06/05/21 10:14:00 CDT, Height, 116.818, kg, 06/05/21 10:14:00 CDT, Weight atorvastati Yes 40 mg = 1 M emoria n 40 mg 9-24 tab, PO, l oral tablet 15:46: Bedtime, # [place] 00 30 tab, 3 Refill(s), Pharmacy: [facility] #[id number], 152.4, cm, 06/05/21 10:14:00 CDT, Height, 116.818, kg, 06/05/21 10:14:00 CDT, Weight atorvastati Yes 40 mg = 1 M emoria n 40 mg 9-24 tab, PO, l oral tablet 15:46: Bedtime, # [place] 00 30 tab, 3 Refill(s), Pharmacy: [id number], 152.4, cm, 06/05/21 10:14:00 CDT, Height, 116.818, kg, 06/05/21 10:14:00 CDT, Weight atorvastati Yes 40 mg = 1 M emoria n 40 mg 9-24 tab, PO, l oral tablet 15:46: Bedtime, # [place] 00 30 tab, 3 Refill(s), Pharmacy: [id number], 152.4, cm, 06/05/21 10:14:00 CDT, Height, 116.818, kg, 06/05/21 10:14:00 CDT, Weight atorvastati 2020-0 Yes 40 mg = 1 M emoria n 40 mg 9-24 tab, PO, l oral tablet 15:46: Bedtime, # [place] 00 30 tab, 3 Refill(s), Pharmacy: [facility] #[id number], 152.4, cm, 06/05/21 10:14:00 CDT, Height, 116.818, kg, 06/05/21 10:14:00 CDT, Weight atorvastati 2020-0 Yes 40 mg = 1 M emoria n 40 mg 9-24 tab, PO, l oral tablet 15:46: Bedtime, # [place] 00 30 tab, 3 Refill(s), Pharmacy: [facility] #[id number], 152.4, cm, 06/05/21 10:14:00 CDT, Height, 116.818, kg, 06/05/21 10:14:00 CDT, Weight atorvastati 2020-0 Yes 40 mg = 1 M emoria n 40 mg 9-24 tab, PO, l oral tablet 15:46: Bedtime, # [place] 00 30 tab, 3 Refill(s), Pharmacy: [facility] #[id number], 152.4, cm, 06/05/21 10:14:00 CDT, Height, 116.818, kg, 06/05/21 10:14:00 CDT, Weight atorvastati 2020-0 Yes 40 mg = 1 M emoria n 40 mg 9-24 tab, PO, l oral tablet 15:46: Bedtime, # [place] 00 30 tab, 3 Refill(s), Pharmacy: [facility] #[id number], 152.4, cm, 06/05/21 10:14:00 CDT, Height, 116.818, kg, 06/05/21 10:14:00 CDT, Weight atorvastati 1-0 Yes 40 mg = 1 M emoria n 40 mg 9-24 tab, PO, l oral tablet 15:46: Bedtime, # [place] 00 30 tab, 3 Refill(s), Pharmacy: [facility] #[id number], 152.4, cm, 06/05/21 10:14:00 CDT, Height, 116.818, kg, 06/05/21 10:14:00 CDT, Weight atorvastati 2021-0 Yes 40 mg = 1 M emoria n 40 mg 9-24 tab, PO, l oral tablet 15:46: Bedtime, # [place] 00 30 tab, 3 Refill(s), Pharmacy: [facility] #[id number], 152.4, cm, 06/05/21 10:14:00 CDT, Height, 116.818, kg, 06/05/21 10:14:00 CDT, Weight atorvastati 1-0 Yes 40 mg = 1 M emoria n 40 mg 9-24 tab, PO, l oral tablet 15:46: Bedtime, # [place] 00 30 tab, 3 Refill(s), Pharmacy: [id number], 152.4, cm, 06/05/21 10:14:00 CDT, Height, 116.818, kg, 06/05/21 10:14:00 CDT, Weight atorvastati 1-0 Yes 40 mg = 1 M emoria n 40 mg 9-24 tab, PO, l oral tablet 15:46: Bedtime, # [place] 00 30 tab, 3 Refill(s), Pharmacy: [facility] #[id number], 152.4, cm, 06/05/21 10:14:00 CDT, Height, 116.818, kg, 06/05/21 10:14:00 CDT, Weight atorvastati 2021-0 Yes 40 mg = 1 M emoria n 40 mg 9-24 tab, PO, l oral tablet 15:46: Bedtime, # [place] 00 30 tab, 3 Refill(s), Pharmacy: [facility] #[id number], 152.4, cm, 06/05/21 10:14:00 CDT, Height, 116.818, kg, 06/05/21 10:14:00 CDT, Weight atorvastati 2021-0 Yes 40 mg = 1 M emoria n 40 mg 9-24 tab, PO, l oral tablet 15:46: Bedtime, # [place] 00 30 tab, 3 Refill(s), Pharmacy: [facility] #[id number], 152.4, cm, 06/05/21 10:14:00 CDT, Height, 116.818, kg, 06/05/21 10:14:00 CDT, Weight atorvastati Yes 40 mg = 1 M emil n 40 mg 9-24 tab, PO, l oral tablet 15:46: Bedtime, # [place] 00 30 tab, 3 Refill(s), Pharmacy: [facility] #[id number], 152.4, cm, 06/05/21 10:14:00 CDT, Height, 116.818, kg, 06/05/21 10:14:00 CDT, Weight 24 HR 0 Yes 500 mg = 1 Memori a Divalproex 8-17 tab, PO, l Sodium 500 20:40: Bedtime, # [place] MG Extended 00 30 tab, 3 Release Refill(s), Tablet Pharmacy: [Depakote] [facility] #[id number], 154.94, cm, 04/28/21 14:17:00 CDT, Height, 114.091, kg, 04/28/21 14:17:00 CDT, Weight 24 HR 0 Yes 500 mg = 1 [facility] a Divalproex 8-17 tab, PO, l Sodium 500 20:40: Bedtime, # [place] MG Extended 00 30 tab, 3 Release Refill(s), Tablet Pharmacy: [Depakote] [facility] #[id number], 154.94, cm, 04/28/21 14:17:00 CDT, Height, 114.091, kg, 04/28/21 14:17:00 CDT, Weight 24 HR 0 Yes 500 mg = 1 [facility] a Divalproex 8-17 tab, PO, l Sodium 500 20:40: Bedtime, # [place] MG Extended 00 30 tab, 3 Release Refill(s), Tablet Pharmacy: [Depakote] [facility] #[id number], 154.94, cm, 04/28/21 14:17:00 CDT, Height, 114.091, kg, 04/28/21 14:17:00 CDT, Weight 24 HR 0 Yes 500 mg = 1 Mem[facility] a Divalproex 8-17 tab, PO, l Sodium 500 20:40: Bedtime, # [place] MG Extended 00 30 tab, 3 Release Refill(s), Tablet Pharmacy: [Depakote] [facility] #[id number], 154.94, cm, 04/28/21 14:17:00 CDT, Height, 114.091, kg, 04/28/21 14:17:00 CDT, Weight 24 HR 0 Yes 500 mg = 1 Mem[facility] a Divalproex 8-17 tab, PO, l Sodium 500 20:40: Bedtime, # [place] MG Extended 00 30 tab, 3 Release Refill(s), Tablet Pharmacy: [Depakote] [facility] #[id number], 154.94, cm, 04/28/21 14:17:00 CDT, Height, 114.091, kg, 04/28/21 14:17:00 CDT, Weight 24 HR 0 Yes 500 mg = 1 [facility] a Divalproex 8-17 tab, PO, l Sodium 500 20:40: Bedtime, # [place] MG Extended 00 30 tab, 3 Release Refill(s), Tablet Pharmacy: [Depakote] [facility] #[id number], 154.94, cm, 04/28/21 14:17:00 CDT, Height, 114.091, kg, 04/28/21 14:17:00 CDT, Weight 24 HR 0 Yes 500 mg = 1 Mem[facility] a Divalproex 8-17 tab, PO, l Sodium 500 20:40: Bedtime, # [place] MG Extended 00 30 tab, 3 Release Refill(s), Tablet Pharmacy: [Depakote] [facility] #[id number], 154.94, cm, 04/28/21 14:17:00 CDT, [...] kg, 04/28/21 14:17:00 CDT, Weight 24 HR 2020-0 Yes 500 mg = 1 [facility] a Divalproex 8-17 tab, PO, l Sodium 500 20:40: Bedtime, # [place] MG Extended 00 30 tab, 3 Release Refill(s), Tablet Pharmacy: [Depakote] [id number], 154.94, cm, 04/28/21 14:17:00 CDT, Height, 114.091, kg, 04/28/21 14:17:00 CDT, Weight 24 HR 0 Yes 500 mg = 1 Memori a Divalproex 8-17 tab, PO, l Sodium 500 20:40: Bedtime, # [place] MG Extended 00 30 tab, 3 Release Refill(s), Tablet Pharmacy: [Depakote] [facility] #[id number], 154.94, cm, 04/28/21 14:17:00 CDT, Height, 114.091, kg, 04/28/21 14:17:00 CDT, Weight 24 HR 0 Yes 500 mg = 1 Memori a Divalproex 8-17 tab, PO, l Sodium 500 20:40: Bedtime, # [place] MG Extended 00 30 tab, 3 Release Refill(s), Tablet Pharmacy: [Depakote] [id number], 154.94, cm, 04/28/21 14:17:00 CDT, Height, 114.091, kg, 04/28/21 14:17:00 CDT, Weight 24 HR 2020-0 Yes 500 mg = 1 Mem[facility] a Divalproex 8-17 tab, PO, l Sodium 500 20:40: Bedtime, # [place] MG Extended 00 30 tab, 3 Release Refill(s), Tablet Pharmacy: [Depakote] [id number], 154.94, cm, 04/28/21 14:17:00 CDT, Height, 114.091, kg, 04/28/21 14:17:00 CDT, Weight 24 HR 2020-0 Yes 500 mg = 1 [facility] a Divalproex 8-17 tab, PO, l Sodium 500 20:40: Bedtime, # [place] MG Extended 00 30 tab, 3 Release Refill(s), [id number], 154.94, cm, 04/28/21 14:17:00 CDT, Height, 114.091, kg, 04/28/21 14:17:00 CDT, Weight 24 HR 2020-0 Yes 500 mg = 1 Mem[facility] a Divalproex 8-17 tab, PO, l Sodium 500 20:40: Bedtime, # [place] MG Extended 00 30 tab, 3 Release Refill(s), [id number], 154.94, cm, 04/28/21 14:17:00 CDT, Height, 114.091, kg, 04/28/21 14:17:00 CDT, Weight 24 HR 0 Yes 500 mg = 1 Mem[facility] a Divalproex 8-17 tab, PO, l Sodium 500 20:40: Bedtime, # [place] MG Extended 00 30 tab, 3 Release Refill(s), [id number], 154.94, cm, 04/28/21 14:17:00 CDT, Height, 114.091, kg, 04/28/21 14:17:00 CDT, Weight Aspirin 81 2020-0 Yes 81 mg = 1 Me moria MG Enteric 8-17 tab, PO, l Coated 20:39: Daily, # [place] Tablet 00 90 tab, 3 Refill(s), [facility]acy: [id number], 154.94, cm, 04/28/21 14:17:00 CDT, Height, 114.091, kg, 04/28/21 14:17:00 CDT, Weight aspirin 81 2020-0 Yes 81 mg = 1 Me moria mg tablet, 8-17 tab, PO, l enteric 20:39: Daily, # [place] coated 00 90 tab, 3 Refill(s), Pharmacy: [facility] #[id number], 154.94, cm, 04/28/21 14:17:00 CDT, Height, 114.091, kg, 04/28/21 14:17:00 CDT, Weight Aspirin 81 2020-0 Yes 81 mg = 1 Me moria MG Enteric 8-17 tab, PO, l Coated 20:39: Daily, # [place] Tablet 00 90 tab, 3 Refill(s), Pharmacy: [facility] #[id number], 154.94, cm, 04/28/21 14:17:00 CDT, Height, 114.091, kg, 04/28/21 14:17:00 CDT, Weight aspirin 81 2020-0 Yes 81 mg = 1 Me moria mg tablet, 8-17 tab, PO, l enteric 20:39: Daily, # [place] coated 00 90 tab, 3 Refill(s), Pharmacy: [facility] #[id number], 154.94, cm, 04/28/21 14:17:00 CDT, Height, 114.091, kg, 04/28/21 14:17:00 CDT, Weight Aspirin 81 2020-0 Yes 81 mg = 1 Me moria MG Enteric 8-17 tab, PO, l Coated 20:39: Daily, # [place] Tablet 00 90 tab, 3 Refill(s), Pharmacy: [facility] #[id number], 154.94, cm, 04/28/21 14:17:00 CDT, Height, 114.091, kg, 04/28/21 14:17:00 CDT, Weight aspirin 81 2020-0 Yes 81 mg = 1 Me moria mg tablet, 8-17 tab, PO, l enteric 20:39: Daily, # [place] coated 00 90 tab, 3 Refill(s), Pharmacy: [facility] #[id number], 154.94, cm, 04/28/21 14:17:00 CDT, Height, 114.091, kg, 04/28/21 14:17:00 CDT, Weight Aspirin 81 2021-0 Yes 81 mg = 1 Me moria MG Enteric 8-17 tab, PO, l Coated 20:39: Daily, # [place] Tablet 00 90 tab, 3 Refill(s), Pharmacy: [facility] #[id number], 154.94, cm, 04/28/21 14:17:00 CDT, Height, 114.091, kg, 04/28/21 14:17:00 CDT, Weight aspirin 81 1-0 Yes 81 mg = 1 Me moria mg tablet, 8-17 tab, PO, l enteric 20:39: Daily, # [place] coated 00 90 tab, 3 Refill(s), Pharmacy: [facility] #[id number], 154.94, cm, 04/28/21 14:17:00 CDT, Height, 114.091, kg, 04/28/21 14:17:00 CDT, Weight Aspirin 81 1-0 Yes 81 mg = 1 Me moria MG Enteric 8-17 tab, PO, l Coated 20:39: Daily, # [place] Tablet 00 90 tab, 3 Refill(s), Pharmacy: [facility] #[id number], 154.94, cm, 04/28/21 14:17:00 CDT, Height, 114.091, kg, 04/28/21 14:17:00 CDT, Weight Aspirin 81 1-0 Yes 81 mg = 1 Me moria MG Enteric 8-17 tab, PO, l Coated 20:39: Daily, # [place] Tablet 00 90 tab, 3 Refill(s), Pharmacy: [facility] #[id number], 154.94, cm, 04/28/21 14:17:00 CDT, Height, 114.091, kg, 04/28/21 14:17:00 CDT, Weight Aspirin 81 2021-0 Yes 81 mg = 1 Me moria MG Enteric 8-17 tab, PO, l Coated 20:39: Daily, # [place] Tablet 00 90 tab, 3 Refill(s), Pharmacy: [facility] #[id number], 154.94, cm, 04/28/21 14:17:00 CDT, Height, 114.091, kg, 04/28/21 14:17:00 CDT, Weight Aspirin 81 2021-0 Yes 81 mg = 1 Me moria MG Enteric 8-17 tab, PO, l Coated 20:39: Daily, # [place] Tablet 00 90 tab, 3 Refill(s), Pharmacy: [facility] #[id number], 154.94, cm, 04/28/21 14:17:00 CDT, Height, 114.091, kg, 04/28/21 14:17:00 CDT, Weight Aspirin 81 1-0 Yes 81 mg = 1 Me moria MG Enteric 8-17 tab, PO, l Coated 20:39: Daily, # [place] Tablet 00 90 tab, 3 Refill(s), Pharmacy: [facility] #[id number], 154.94, cm, 04/28/21 14:17:00 CDT, Height, 114.091, kg, 04/28/21 14:17:00 CDT, Weight Aspirin 81 2021-0 Yes 81 mg = 1 Me moria MG Enteric 8-17 tab, PO, l Coated 20:39: Daily, # [place] Tablet 00 90 tab, 3 Refill(s), Pharmacy: [facility] #[id number], 154.94, cm, 04/28/21 14:17:00 CDT, Height, 114.091, kg, 04/28/21 14:17:00 CDT, Weight Aspirin 81 2020-0 Yes 81 mg = 1 Me moria MG Enteric 8-17 tab, PO, l Coated 20:39: Daily, # [place] Tablet 00 90 tab, 3 Refill(s), Pharmacy: [facility] #[id number], 154.94, cm, 04/28/21 14:17:00 CDT, Height, 114.091, kg, 04/28/21 14:17:00 CDT, Weight Aspirin 81 2021-0 Yes 81 mg = 1 Me moria MG Enteric 8-17 tab, PO, l Coated 20:39: Daily, # [place] Tablet 00 90 tab, 3 Refill(s), [id number], 154.94, cm, 04/28/21 14:17:00 CDT, Height, 114.091, kg, 04/28/21 14:17:00 CDT, Weight Aspirin 81 2021-0 Yes 81 mg = 1 Me moria MG Enteric 8-17 tab, PO, l Coated 20:39: Daily, # [place] Tablet 00 90 tab, 3 Refill(s), Pharmacy: [id number], 154.94, cm, 04/28/21 14:17:00 CDT, Height, 114.091, kg, 04/28/21 14:17:00 CDT, Weight Aspirin 81 2020-0 Yes 81 mg = 1 Me moria MG Enteric 8-17 tab, PO, l Coated 20:39: Daily, # [place] Tablet 00 90 tab, 3 Refill(s), Pharmacy: [facility] #[id number], 154.94, cm, 04/28/21 14:17:00 CDT, Height, 114.091, kg, 04/28/21 14:17:00 CDT, Weight Aspirin 81 2020-0 Yes 81 mg = 1 Me moria MG Enteric 8-17 tab, PO, l Coated 20:39: Daily, # [place] Tablet 00 90 tab, 3 Refill(s), Pharmacy: [facility] #[id number], 154.94, cm, 04/28/21 14:17:00 CDT, Height, 114.091, kg, 04/28/21 14:17:00 CDT, Weight atorvastati Yes 40 mg = 1 M emoria n 40 mg 8-10 tab, PO, l oral tablet 20:14: Bedtime, # [place] 00 30 tab, 0 Refill(s) Valproic 0 Yes 250 mg = 1 Mem oria Acid 250 MG 8-10 cap, PO, l Oral 20:14: TID, # 90 [place] Capsule 00 cap, 0 Refill(s) atorvastati 0 Yes 40 mg = 1 M emoria n 40 mg 8-10 tab, PO, l oral tablet 20:14: Bedtime, # [place] 00 30 tab, 0 Refill(s) Valproic 2020-0 Yes 250 mg = 1 Mem oria Acid 250 MG 8-10 cap, PO, l Oral 20:14: TID, # 90 [place] Capsule 00 cap, 0 Refill(s) atorvastati 2020-0 Yes 40 mg = 1 M emoria n 40 mg 8-10 tab, PO, l oral tablet 20:14: Bedtime, # [place] 00 30 tab, 0 Refill(s) Valproic 2020-0 Yes 250 mg = 1 Mem oria Acid 250 MG 8-10 cap, PO, l Oral 20:14: TID, # 90 [place] Capsule 00 cap, 0 Refill(s) atorvastati 2021-0 Yes 40 mg = 1 M emoria n 40 mg 8-10 tab, PO, l oral tablet 20:14: Bedtime, # [place] 00 30 tab, 0 Refill(s) Valproic 2020-0 Yes 250 mg = 1 Mem oria Acid 250 MG 8-10 cap, PO, l Oral 20:14: TID, # 90 [place] Capsule 00 cap, 0 Refill(s) atorvastati 2020-0 [...] PO, l oral tablet 20:14: Bedtime, # [place] 00 30 tab, 0 Refill(s) Valproic 2020-0 [...] PO, l Oral 20:14: TID, # 90 [place] Capsule 00 cap, 0 Refill(s) atorvastati 2020-0 Yes 40 mg = 1 M emoria n 40 mg 8-10 tab, PO, l oral tablet 20:14: Bedtime, # [place] 00 30 tab, 0 Refill(s) Valproic 2020-0 Yes 250 mg = 1 Mem oria Acid 250 MG 8-10 cap, PO, l Oral 20:14: TID, # 90 [place] Capsule 00 cap, 0 Refill(s) atorvastati 2020-0 Yes 40 mg = 1 M emoria n 40 mg 8-10 tab, PO, l oral tablet 20:14: Bedtime, # [place] 00 30 tab, 0 Refill(s) Valproic 2020-0 Yes 250 mg = 1 Mem oria Acid 250 MG 8-10 cap, PO, l Oral 20:14: TID, # 90 [place] Capsule 00 cap, 0 Refill(s) atorvastati 2020-0 Yes 40 mg = 1 M emoria n 40 mg 8-10 tab, PO, l oral tablet 20:14: Bedtime, # [place] 00 30 tab, 0 Refill(s) Valproic 2020-0 Yes 250 mg = 1 Mem oria Acid 250 MG 8-10 cap, PO, l Oral 20:14: TID, # 90 [place] Capsule 00 cap, 0 Refill(s) atorvastati 2020-0 Yes 40 mg = 1 M emoria n 40 mg 8-10 tab, PO, l oral tablet 20:14: Bedtime, # [place] 00 30 tab, 0 Refill(s) Valproic 2020-0 Yes 250 mg = 1 Mem oria Acid 250 MG 8-10 cap, PO, l Oral 20:14: TID, # 90 [place] Capsule 00 cap, 0 Refill(s) atorvastati 2020-0 Yes 40 mg = 1 M emoria n 40 mg 8-10 tab, PO, l oral tablet 20:14: Bedtime, # [place] 00 30 tab, 0 Refill(s) Valproic 2020-0 [...] PO, l Oral 20:14: TID, # 90 [place] Capsule 00 cap, 0 Refill(s) atorvastati 2020-0 Yes 40 mg = 1 M emoria n 40 mg 8-10 tab, PO, l oral tablet 20:14: Bedtime, # [place] 00 30 tab, 0 Refill(s) Valproic 2020-0 Yes 250 mg = 1 Mem oria Acid 250 MG 8-10 cap, PO, l Oral 20:14: TID, # 90 [place] Capsule 00 cap, 0 Refill(s) Folic Acid 2020-0 Yes Daily, 0 Mem oria 8-10 Refill(s) l 20:13: Folic Acid 2020-0 Yes Daily, 0 Mem oria 8-10 Refill(s) l 20:13: Folic Acid 2020-0 Yes Daily, 0 Mem oria 8-10 Refill(s) l 20:13: Folic Acid 2020-0 Yes Daily, 0 Mem oria 8-10 Refill(s) l 20:13: Folic Acid 2020-0 Yes Daily, 0 Mem oria 8-10 Refill(s) l 20:13: Folic Acid 2020-0 Yes Daily, 0 Mem oria 8-10 Refill(s) l 20:13: Folic Acid 2020-0 Yes Daily, 0 Mem oria 8-10 Refill(s) l 20:13: [place] 00 Folic Acid 2020-0 Yes Daily, 0 Mem oria 8-10 Refill(s) l 20:13: [place] 00 Folic Acid 2020-0 Yes Daily, 0 Mem oria 8-10 Refill(s) l 20:13: Folic Acid 2020-0 Yes Daily, 0 Mem oria 8-10 Refill(s) l 20:13: Folic Acid 2020-0 Yes Daily, 0 Mem oria 8-10 Refill(s) l 20:13: Folic Acid 2020-0 Yes Daily, 0 Mem oria 8-10 Refill(s) l 20:13: Folic Acid 2021-0 Yes Daily, 0 Mem oria 8-10 Refill(s) l 20:13: Folic Acid 2021-0 Yes Daily, 0 Mem oria 8-10 Refill(s) l 20:13: Folic Acid 2021-0 Yes Daily, 0 Mem oria 8-10 Refill(s) l 20:13: pantoprazol 2021-0 Yes 40 mg = 1 M emoria e 40 MG 4-23 tab, PO, l Enteric 02:09: Daily, # [place] Coated 00 90 tab, 0 Tablet Refill(s), [Protonix] Pharmacy: [facility] #[id number], 154.94, cm, 12/17/20 14:42:00 CDT, Height, 115.545, kg, 12/17/20 14:42:00 CDT, Weight pantoprazol 1-0 Yes 40 mg = 1 M emoria e 40 MG 4-23 tab, PO, l Enteric 02:09: Daily, # [place] Coated 00 90 tab, 0 Tablet Refill(s), [Protonix] Pharmacy: [facility] #[id number], 154.94, cm, 12/17/20 14:42:00 CDT, Height, 115.545, kg, 12/17/20 14:42:00 CDT, Weight pantoprazol 2020-0 Yes 40 mg = 1 M emoria e 40 MG 4-23 tab, PO, l Enteric 02:09: Daily, # [place] Coated 00 90 tab, 0 Tablet Refill(s), [Protonix] Pharmacy: [facility] #[id number], 154.94, cm, 12/17/20 14:42:00 CDT, Height, 115.545, kg, 12/17/20 14:42:00 CDT, Weight pantoprazol 2021-0 Yes 40 mg = 1 M emoria e 40 MG 4-23 tab, PO, l Enteric 02:09: Daily, # [place] Coated 00 90 tab, 0 Tablet Refill(s), [Protonix] Pharmacy: [facility] #[id number], 154.94, cm, 12/17/20 14:42:00 CDT, Height, 115.545, kg, 12/17/20 14:42:00 CDT, Weight pantoprazol 2021-0 Yes 40 mg = 1 M emoria e 40 MG 4-23 tab, PO, l Enteric 02:09: Daily, # [place] Coated 00 90 tab, 0 Tablet Refill(s), [Protonix] Pharmacy: [facility] #[id number], 154.94, cm, 12/17/20 14:42:00 CDT, Height, 115.545, kg, 12/17/20 14:42:00 CDT, Weight pantoprazol 2021-0 Yes 40 mg = 1 M emoria e 40 MG 4-23 tab, PO, l Enteric 02:09: Daily, # [place] Coated 00 90 tab, 0 Tablet Refill(s), [Protonix] Pharmacy: [facility] #[id number], 154.94, cm, 12/17/20 14:42:00 CDT, Height, 115.545, kg, 12/17/20 14:42:00 CDT, Weight pantoprazol 2021-0 Yes 40 mg = 1 M emoria e 40 MG 4-23 tab, PO, l Enteric 02:09: Daily, # [place] Coated 00 90 tab, 0 Tablet Refill(s), [Protonix] Pharmacy: [facility] #[id number], 154.94, cm, 12/17/20 14:42:00 CDT, Height, 115.545, kg, 12/17/20 14:42:00 CDT, Weight pantoprazol 2021-0 Yes 40 mg = 1 M emoria e 40 MG 4-23 tab, PO, l Enteric 02:09: Daily, # [place] Coated 00 90 tab, 0 Tablet Refill(s), [Protonix] Pharmacy: [facility] #[id number], 154.94, cm, 12/17/20 14:42:00 CDT, Height, 115.545, kg, 12/17/20 14:42:00 CDT, Weight pantoprazol 2021-0 Yes 40 mg = 1 M emoria e 40 MG 4-23 tab, PO, l Enteric 02:09: Daily, # [place] Coated 00 90 tab, 0 Tablet Refill(s), [Protonix] Pharmacy: [id number], 154.94, cm, 12/17/20 14:42:00 CDT, Height, 115.545, kg, 12/17/20 14:42:00 CDT, Weight pantoprazol 2021-0 Yes 40 mg = 1 M emoria e 40 MG 4-23 tab, PO, l Enteric 02:09: Daily, # [place] Coated 00 90 tab, 0 Tablet Refill(s), [Protonix] Pharmacy: [facility] #[id number], 154.94, cm, 12/17/20 14:42:00 CDT, Height, 115.545, kg, 12/17/20 14:42:00 CDT, Weight pantoprazol 2021-0 Yes 40 mg = 1 M emoria e 40 MG 4-23 tab, PO, l Enteric 02:09: Daily, # [place] Coated 00 90 tab, 0 Tablet Refill(s), [Protonix] Pharmacy: [facility] #[id number], 154.94, cm, 12/17/20 14:42:00 CDT, Height, 115.545, kg, 12/17/20 14:42:00 CDT, Weight pantoprazol 2021-0 Yes 40 mg = 1 M emoria e 40 MG 4-23 tab, PO, l Enteric 02:09: Daily, # [place] Coated 00 90 tab, 0 Tablet Refill(s), [Protonix] Pharmacy: [facility][id number], 154.94, cm, 12/17/20 14:42:00 CDT, Height, 115.545, kg, 12/17/20 14:42:00 CDT, Weight pantoprazol 2021-0 Yes 40 mg = 1 M emoria e 40 MG 4-23 tab, PO, l Enteric 02:09: Daily, # [place] Coated 00 90 tab, 0 Tablet Refill(s), [Protonix] Pharmacy: [facility][id number], 154.94, cm, 12/17/20 14:42:00 CDT, Height, 115.545, kg, 12/17/20 14:42:00 CDT, Weight pantoprazol 2021-0 Yes 40 mg = 1 M emoria e 40 MG 4-23 tab, PO, l Enteric 02:09: Daily, # [place] Coated 00 90 tab, 0 Tablet Refill(s), [Protonix] Pharmacy: [facility] #[id number], 154.94, cm, 12/17/20 14:42:00 CDT, Height, 115.545, kg, 12/17/20 14:42:00 CDT, Weight pantoprazol Yes 40 mg = 1 M emoria e 40 MG 4-23 tab, PO, l Enteric 02:09: Daily, # [place] Coated 00 90 tab, 0 Tablet Refill(s), [Protonix] Pharmacy: [facility] #[id number], 154.94, cm, 12/17/20 14:42:00 CDT, Height, [...] stop., # 30 tab, 0 Refill(s), Pharmacy: [facility] #[id number], 154.94, cm, 12/17/20 14:42:00 CDT, Height, 115.545,.. . predniSONE Yes See Memoria 10 mg oral 4-07 Instructio l tablet 20:05: ns, 4 tabs Ariana nn 00 PO daily x 3 days, then 3 tabs PO daily x 3 days, then 2 tabs PO daily x 3 days, then 1 tab PO daily x 3 days then stop., # 30 tab, 0 Refill(s), Pharmacy: [facility] #[id number], 154.94, cm, 12/17/20 14:42:00 CDT, Height, 115.545,.. . predniSONE Yes See Memoria 10 mg oral 4-07 Instructio l tablet 20:05: ns, 4 tabs Ariana nn 00 PO daily x 3 days, then 3 tabs PO daily x 3 days, then 2 tabs PO daily x 3 days, then 1 tab PO daily x 3 days then stop., # 30 tab, 0 Refill(s), Pharmacy: [facility] #[id number], 154.94, cm, 12/17/20 14:42:00 CDT, Height, [...] stop., # 30 tab, 0 Refill(s), Pharmacy: [facility] #[id number], 154.94, cm, 12/17/20 14:42:00 CDT, Height, [...] stop., # 30 tab, 0 Refill(s), Pharmacy: [facility] #[id number], 154.94, cm, 12/17/20 14:42:00 CDT, Height, [...] stop., # 30 tab, 0 Refill(s), Pharmacy: [facility] #[id number], 154.94, cm, 12/17/20 14:42:00 CDT, Height, [...] stop., # 30 tab, 0 Refill(s), Pharmacy: [facility] #[id number], 154.94, cm, 12/17/20 14:42:00 CDT, Height, [...] stop., # 30 tab, 0 Refill(s), Pharmacy: [facility] #[id number], 154.94, cm, 12/17/20 14:42:00 CDT, Height, [...] stop., # 30 tab, 0 Refill(s), Pharmacy: [facility] #[id number], 154.94, cm, 12/17/20 14:42:00 CDT, Height, [...] stop., # 30 tab, 0 Refill(s), Pharmacy: [facility] #[id number], 154.94, cm, 12/17/20 14:42:00 CDT, Height, [...] stop., # 30 tab, 0 Refill(s), Pharmacy: [facility] #[id number], 154.94, cm, 12/17/20 14:42:00 CDT, Height, [...] stop., # 30 tab, 0 Refill(s), Pharmacy: [facility] #[id number], 154.94, cm, 12/17/20 14:42:00 CDT, Height, [...] stop., # 30 tab, 0 Refill(s), Pharmacy: [facility] #[id number], 154.94, cm, 12/17/20 14:42:00 CDT, Height, [...] stop., # 30 tab, 0 Refill(s), Pharmacy: [facility] #[id number], 154.94, cm, 12/17/20 14:42:00 CDT, Height, [...] stop., # 30 tab, 0 Refill(s), Pharmacy: [facility] #[id number], 154.94, cm, 12/17/20 14:42:00 CDT, Height, 115.545,.. . 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, Weight valacyclovi 0 Yes 2 gm = 2 Me moria r 1000 MG 2-10 tab, PO, l Oral Tablet 19:59: Q12H, As [place] r[place] [Valtrex] 00 soon as cold sore pops up, # 60 tab, 0 Refill(s), Pharmacy: [facility] #[id number], 154.94, cm, 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, 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, 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, kg, 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, Weight valacyclovi 0 Yes 2 gm = 2 Me moria r 1000 MG 2-10 tab, PO, l Oral Tablet 19:59: Q12H, As [place] [Valtrex] 00 soon as cold sore pops up, # 60 tab, 0 Refill(s), Pharmacy: [facility] #[id number], 154.94, cm, 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, 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, 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, kg, 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, Weight valacyclovi 0 Yes 2 gm = 2 Me moria r 1000 MG 2-10 tab, PO, l Oral Tablet 19:59: Q12H, As [place] [Valtrex] 00 soon as cold sore pops up, # 60 tab, 0 Refill(s), Pharmacy: [id number], 154.94, cm, 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, Height, 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, kg, 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, Weight valacyclovi 2020-0 Yes 2 gm = 2 Me moria r 1000 MG 2-10 tab, PO, l Oral Tablet 19:59: Q12H, As [place] [Valtrex] 00 soon as cold sore pops up, # 60 tab, 0 Refill(s), Pharmacy: [id number], 154.94, cm, 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, Height, 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, kg, 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, Weight valacyclovi 2020-0 Yes 2 gm = 2 Me moria r 1000 MG 2-10 tab, PO, l Oral Tablet 19:59: Q12H, As [place] [Valtrex] 00 soon as cold sore pops up, # 60 tab, 0 Refill(s), Pharmacy: [facility] #[id number], 154.94, cm, 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, Height, 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, kg, 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, Weight valacyclovi 2020-0 Yes 2 gm = 2 Me moria r 1000 MG 2-10 tab, PO, l Oral Tablet 19:59: Q12H, As [place] [Valtrex] 00 soon as cold sore pops up, # 60 tab, 0 Refill(s), Pharmacy: [facility] #[id number], 154.94, cm, 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, 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, 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, kg, 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, Weight valacyclovi 2020-0 Yes 2 gm = 2 Me moria r 1000 MG 2-10 tab, PO, l Oral Tablet 19:59: Q12H, As [place] [Valtrex] 00 soon as cold sore pops up, # 60 tab, 0 Refill(s), Pharmacy: [facility] #[id number], 154.94, cm, 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, 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, 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, kg, 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, Weight valacyclovi 2020-0 Yes 2 gm = 2 Me moria r 1000 MG 2-10 tab, PO, l Oral Tablet 19:59: Q12H, As [place] r[place] [Valtrex] 00 soon as cold sore pops up, # 60 tab, 0 Refill(s), Pharmacy: [id number], 154.94, cm, 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, Height, 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, kg, 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, Weight valacyclovi 2020-0 Yes 2 gm = 2 Me moria r 1000 MG 2-10 tab, PO, l Oral Tablet 19:59: Q12H, As [place] r[place] [Valtrex] 00 soon as cold sore pops up, # 60 tab, 0 Refill(s), Pharmacy: [facility] #[id number], 154.94, cm, 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, 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, 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, kg, 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, Weight valacyclovi 2020-0 Yes 2 gm = 2 Me moria r 1000 MG 2-10 tab, PO, l Oral Tablet 19:59: Q12H, As He r[place] [Valtrex] 00 soon as cold sore pops up, # 60 tab, 0 Refill(s), Pharmacy: [facility] #[id number], 154.94, cm, 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 [id number], 157.48, cm, 07/10/20 10:07:00 CDT, Height, 110, kg, 07/10/20 10:07:00 CDT, Weight pantoprazol 2019-09 Yes = 1 tab, Me moria e 40 mg 1-17 PO, Daily, l oral 20:53: # 90 tab, [place] [facility] 00 1 coated Refill(s), tablet Pharmacy: [facility] [id number], 157.48, cm, 07/10/20 10:07:00 CDT, Height, 110, kg, 07/10/20 10:07:00 CDT, Weight pantoprazol 2019-09 Yes = 1 tab, [facility] 40 mg 1-17 PO, Daily, l oral 20:53: # 90 tab, [facility] [facility] 00 1 coated Refill(s), tablet Pharmacy: [facility] STORE [id number], 157.48, cm, 07/10/20 10:07:00 CDT, Height, 110, kg, 07/10/20 10:07:00 CDT, Weight pantoprazol 2019- Yes = 1 tab, [facility] 40 mg 1-17 PO, Daily, l oral 20:53: # 90 tab, [facility] [facility] 00 1 coated Refill(s), tablet Pharmacy: [facility] STORE [id number], 157.48, cm, 07/10/20 10:07:00 CDT, Height, 110, kg, 07/10/20 10:07:00 CDT, Weight pantoprazol 2019- Yes = 1 tab, [facility] 40 mg 1-17 PO, Daily, l oral 20:53: # 90 tab, [place] [facility] 00 1 coated Refill(s), tablet Pharmacy: [facility] STORE [id number], 157.48, cm, 07/10/20 10:07:00 CDT, Height, 110, kg, 07/10/20 10:07:00 CDT, Weight pantoprazol 2019-09 Yes = 1 tab, [facility] 40 mg 1-17 PO, Daily, l oral 20:53: # 90 tab, [place] [facility] 00 1 coated Refill(s), tablet Pharmacy: [facility] STORE [id number], 157.48, cm, 07/10/20 10:07:00 CDT, Height, 110, kg, 07/10/20 10:07:00 CDT, Weight pantoprazol 2019-09 Yes = 1 tab, [facility] 40 mg 1-17 PO, Daily, l oral 20:53: # 90 tab, [place] [facility] 00 1 coated Refill(s), tablet Pharmacy: [facility] STORE [id number], 157.48, cm, 07/10/20 10:07:00 CDT, Height, 110, kg, 07/10/20 10:07:00 CDT, Weight pantoprazol 2019- Yes = 1 tab, [facility] 40 mg 1-17 PO, Daily, l oral 20:53: # 90 tab, [place] [facility] 00 1 coated Refill(s), tablet Pharmacy: [facility] STORE [id number], 157.48, cm, 07/10/20 10:07:00 CDT, Height, 110, kg, 07/10/20 10:07:00 CDT, Weight pantoprazol 2019- Yes = 1 tab, [facility] 40 mg 1-17 PO, Daily, l oral 20:53: # 90 tab, [place] [facility] 00 1 coated Refill(s), tablet Pharmacy: [facility] STORE [id number], 157.48, cm, 07/10/20 10:07:00 CDT, Height, 110, kg, 07/10/20 10:07:00 CDT, Weight pantoprazol 2019- Yes = 1 tab, [facility] 40 mg 1-17 PO, Daily, l oral 20:53: # 90 tab, [place] [facility] 00 1 coated Refill(s), tablet Pharmacy: [facility] STORE [id number], 157.48, cm, 07/10/20 10:07:00 CDT, Height, 110, kg, 07/10/20 10:07:00 CDT, Weight pantoprazol 2019-09 Yes = 1 tab, [facility] 40 mg 1-17 PO, Daily, l oral 20:53: # 90 tab, [place] [facility] 00 1 coated Refill(s), tablet Pharmacy: [facility] STORE [id number], 157.48, cm, 07/10/20 10:07:00 CDT, Height, 110, kg, 07/10/20 10:07:00 CDT, Weight pantoprazol 2019-09 Yes = 1 tab, [facility] 40 mg 1-17 PO, Daily, l oral 20:53: # 90 tab, [place] [facility] 00 1 coated Refill(s), tablet Pharmacy: [facility] STORE [id number], 157.48, cm, 07/10/20 10:07:00 CDT, Height, 110, kg, 07/10/20 10:07:00 CDT, Weight pantoprazol 2019- Yes = 1 tab, [facility] 40 mg 1-17 PO, Daily, l oral 20:53: # 90 tab, [place] [facility] 00 1 coated Refill(s), tablet Pharmacy: [facility] STORE [id number], 157.48, cm, 07/10/20 10:07:00 CDT, Height, 110, kg, 07/10/20 10:07:00 CDT, Weight pantoprazol 2019- Yes = 1 tab, [facility] 40 mg 1-17 PO, Daily, l oral 20:53: # 90 tab, [place] [facility] 00 1 coated Refill(s), tablet Pharmacy: [facility] STORE [id number], 157.48, cm, 07/10/20 10:07:00 CDT, Height, 110, kg, 07/10/20 10:07:00 CDT, Weight pantoprazol 2019-09 Yes = 1 tab, [facility] 40 mg 1-17 PO, Daily, l oral 20:53: # 90 tab, [place] [facility] 00 1 coated Refill(s), tablet Pharmacy: [facility] STORE [id number], 157.48, cm, 07/10/20 10:07:00 CDT, Height, 110, kg, 07/10/20 10:07:00 CDT, Weight 24 HR 2019-09 Yes 75 mg = 2 [facility] venlafaxine 0-29 cap, PO, l 37.5 MG 15:49: Daily, # [place] [facility] Extended 00 60 cap, 3 Release Refill(s), [facility]: [[facility]] [facility] #[id number], 157.48, cm, 07/10/20 10:07:00 CDT, Height, 110, kg, 07/10/20 10:07:00 CDT, Weight 24 HR 2019-09 Yes 75 mg = 2 [facility] venlafaxine 0-29 cap, PO, l 37.5 MG 15:49: Daily, # [place] [facility] Extended 00 60 cap, 3 Release Refill(s), [facility]: [Effexor] [facility] #[id number], 157.48, cm, 07/10/20 10:07:00 CDT, Height, 110, kg, 07/10/20 10:07:00 CDT, Weight 24 HR 2019-09 Yes 75 mg = 2 [facility] venlafaxine 0-29 cap, PO, l 37.5 MG 15:49: Daily, # [place] Extended 00 60 cap, 3 Release Refill(s), [facility]: [Effexor] [facility] #[id number], 157.48, cm, 07/10/20 10:07:00 CDT, [...] cap, 3 Release Refill(s), [facility]: [[facility]] [id number], 157.48, cm, 07/10/20 10:07:00 CDT, Height, 110, kg, 07/10/20 10:07:00 CDT, Weight 24 HR 2020 Yes 75 mg = 2 [facility] venlafaxine 0-29 cap, PO, l 37.5 MG 15:49: Daily, # [place] [facility] Extended 00 60 cap, 3 Release Refill(s), [facility]: [[facility]xor] [id number], 157.48, cm, 07/10/20 10:07:00 CDT, [...] PO, l 37.5 MG 15:49: Daily, # [place] [facility] Extended 00 60 cap, 3 Release [...] cap, 3 Release Refill(s), [facility]: [Effexor] [facility] #[id number], 157.48, cm, 07/10/20 10:07:00 CDT, Height, 110, kg, 07/10/20 10:07:00 CDT, Weight 24 HR 2019-09 Yes 75 mg = 2 [facility] venlafaxine 0-29 cap, PO, l 37.5 MG 15:49: Daily, # [place] [facility] Extended 00 60 cap, 3 Release Refill(s), [facility]: [Effexor] [facility] #[id number], 157.48, cm, 07/10/20 10:07:00 CDT, Height, 110, kg, 07/10/20 10:07:00 CDT, Weight topiramate 2019-09 No See [facility] 50 MG Oral 0-29 Instructio l Tablet 15:10: ns, 09/13 [facility] [Topamax] 00 tab PO QAM, 1 tab PO QPM, 0 Refill(s) topiramate 2019-09 No See [facility] 50 MG Oral 0-29 Instructio l Tablet 15:10: ns, 1/2 [place] [Topamax] 00 tab PO QAM, 1 tab PO QPM, 0 Refill(s) topiramate 2019-09 No See [facility] 50 MG Oral 0-29 Instructio l Tablet 15:10: ns, 2 [place] [Topamax] 00 tab PO QAM, 1 tab PO QPM, 0 Refill(s) topiramate 2019-09 No See [facility] 50 MG Oral 0-29 Instructio l Tablet 15:10: ns, 1/2 [place] [Topamax] 00 tab PO QAM, 1 tab PO QPM, 0 Refill(s) topiramate 2019-09 No See [facility] 50 MG Oral 0-29 Instructio l Tablet 15:10: ns, 1/2 [place] [Topamax] 00 tab PO QAM, 1 tab PO QPM, 0 Refill(s) topiramate 2019-09 No See [facility] 50 MG Oral 0-29 Instructio l Tablet 15:10: ns, 1/2 [place] [Topamax] 00 tab PO QAM, 1 tab PO QPM, 0 Refill(s) topiramate 2019-09 No See [facility] 50 MG Oral 0-29 Instructio l Tablet 15:10: ns, 1/2 [place] [Topamax] 00 tab PO QAM, 1 tab PO QPM, 0 Refill(s) topiramate 2019-09 No See [facility] 50 MG Oral 0-29 Instructio l Tablet 15:10: ns, 12 [place] [Topamax] 00 tab PO QAM, 1 tab PO QPM, 0 Refill(s) topiramate 2019-09 No See [facility] 50 MG Oral 0-29 Instructio l Tablet 15:10: ns, 09/13 [place] [Topamax] 00 tab PO QAM, 1 tab PO QPM, 0 Refill(s) topiramate 2019-09 No See [facility] 50 MG Oral 0-29 Instructio l Tablet 15:10: ns, /2 [place] [Topamax] 00 tab PO QAM, 1 tab PO QPM, 0 Refill(s) topiramate 2019-09 No See [facility] 50 MG Oral 0-29 Instructio l Tablet 15:10: ns, 2 [place] [Topamax] 00 tab PO QAM, 1 tab PO QPM, 0 Refill(s) topiramate 2019-09 No See [facility] 50 MG Oral 0-29 Instructio l Tablet 15:10: ns, /2 [place] [Topamax] 00 tab PO QAM, 1 tab PO QPM, 0 Refill(s) topiramate 2019-09 No See [facility] 50 MG Oral 0-29 Instructio l Tablet 15:10: ns, 1/2 [place] [Topamax] 00 tab PO QAM, 1 tab PO QPM, 0 Refill(s) topiramate 2019-09 No See [facility] 50 MG Oral 0-29 Instructio l Tablet 15:10: ns, 1/2 [place] [Topamax] 00 tab PO QAM, 1 tab PO QPM, 0 Refill(s) topiramate 2019-09 No See [facility] 50 MG Oral 0-29 Instructio l Tablet 15:10: ns, 1/2 [place] [Topamax] 00 tab PO QAM, 1 tab PO QPM, 0 Refill(s) amitriptyli 2019-09 No 25 mg = 1 M [facility] ne 25 mg 0-27 tab, PO, l oral tablet 16:33: Bedtime, # [place] 00 90 tab, 1 Refill(s), Pharmacy: [id number], 154.94, cm, 06/03/20 10:17:00 CDT, Height, 113.182, kg, 06/03/20 10:17:00 CDT, Weight amitriptyli 2019-09 No 25 mg = 1 M [facility] ne 25 mg 0-27 tab, PO, l oral tablet 16:33: Bedtime, # [place] 00 90 tab, 1 Refill(s), Pharmacy: [facility] #[id number], 154.94, cm, 06/03/20 10:17:00 CDT, Height, 113.182, kg, 06/03/20 10:17:00 CDT, Weight amitriptyli 2019-09 No 25 mg = 1 M [facility] ne 25 mg 0-27 tab, PO, l oral tablet 16:33: Bedtime, # [place] 00 90 tab, 1 Refill(s), Pharmacy: [facility] #[id number], 154.94, cm, 06/03/20 10:17:00 CDT, Height, 113.182, kg, 06/03/20 10:17:00 CDT, Weight amitriptyli 2019-09 No 25 mg = 1 M [facility] ne 25 mg 0-27 tab, PO, l oral tablet 16:33: Bedtime, # [place] 00 90 tab, 1 Refill(s), Pharmacy: [facility] #[id number], 154.94, cm, 06/03/20 10:17:00 CDT, Height, 113.182, kg, 06/03/20 10:17:00 CDT, Weight amitriptyli 2019-09 No 25 mg = 1 M [facility] ne 25 mg 0-27 tab, PO, l oral tablet 16:33: Bedtime, # [place] 00 90 tab, 1 Refill(s), Pharmacy: [facility] #[id number], 154.94, cm, 06/03/20 10:17:00 CDT, Height, 113.182, kg, 06/03/20 10:17:00 CDT, Weight amitriptyli 2019-09 No 25 mg = 1 M [facility] ne 25 mg 0-27 tab, PO, l oral tablet 16:33: Bedtime, # [place] 00 90 tab, 1 Refill(s), Pharmacy: [facility] #[id number], 154.94, cm, 06/03/20 10:17:00 CDT, Height, 113.182, kg, 06/03/20 10:17:00 CDT, Weight amitriptyli 2019-09 No 25 mg = 1 M [facility] ne 25 mg 0-27 tab, PO, l oral tablet 16:33: Bedtime, # [place] 00 90 tab, 1 Refill(s), Pharmacy: [facility] #[id number], 154.94, cm, 06/03/20 10:17:00 CDT, Height, 113.182, kg, 06/03/20 10:17:00 CDT, Weight amitriptyli 2019-09 No 25 mg = 1 M [facility] ne 25 mg 0-27 tab, PO, l oral tablet 16:33: Bedtime, # [place] 00 90 tab, 1 Refill(s), Pharmacy: [facility] #[id number], 154.94, cm, 06/03/20 10:17:00 CDT, Height, 113.182, kg, 06/03/20 10:17:00 CDT, Weight amitriptyli 2019-09 No 25 mg = 1 M [facility] ne 25 mg 0-27 tab, PO, l oral tablet 16:33: Bedtime, # [place] 00 90 tab, 1 Refill(s), Pharmacy: [facility] #[id number], 154.94, cm, 06/03/20 10:17:00 CDT, Height, 113.182, kg, 06/03/20 10:17:00 CDT, Weight amitriptyli 2019-09 No 25 mg = 1 M [facility] ne 25 mg 0-27 tab, PO, l oral tablet 16:33: Bedtime, # [place] 00 90 tab, 1 Refill(s), Pharmacy: [facility] #[id number], 154.94, cm, 06/03/20 10:17:00 CDT, Height, 113.182, kg, 06/03/20 10:17:00 CDT, Weight amitriptyli 2019-09 No 25 mg = 1 M [facility] ne 25 mg 0-27 tab, PO, l oral tablet 16:33: Bedtime, # [place] 00 90 tab, 1 Refill(s), Pharmacy: [facility] #[id number], 154.94, cm, 06/03/20 10:17:00 CDT, Height, 113.182, kg, 06/03/20 10:17:00 CDT, Weight amitriptyli 2019-09 No 25 mg = 1 M [facility] ne 25 mg 0-27 tab, PO, l oral tablet 16:33: Bedtime, # [place] 00 90 tab, 1 Refill(s), Pharmacy: [facility] #[id number], 154.94, cm, 06/03/20 10:17:00 CDT, Height, 113.182, kg, 06/03/20 10:17:00 CDT, Weight amitriptyli 2019-09 No 25 mg = 1 M [facility] ne 25 mg 0-27 tab, PO, l oral tablet 16:33: Bedtime, # [place] 00 90 tab, 1 Refill(s), Pharmacy: [facility] #[id number], 154.94, cm, 06/03/20 10:17:00 CDT, Height, 113.182, kg, 06/03/20 10:17:00 CDT, Weight amitriptyli 2019-09 No 25 mg = 1 M [facility] ne 25 mg 0-27 tab, PO, l oral tablet 16:33: Bedtime, # [place] 00 90 tab, 1 Refill(s), Pharmacy: [facility] #[id number], 154.94, cm, 06/03/20 10:17:00 CDT, Height, 113.182, kg, 06/03/20 10:17:00 CDT, Weight amitriptyli 2019-09 No 25 mg = 1 M [facility] ne 25 mg 0-27 tab, PO, l oral tablet 16:33: Bedtime, # [place] 00 90 tab, 1 Refill(s), Pharmacy: [facility] #[id number], 154.94, cm, 06/03/20 10:17:00 CDT, Height, 113.182, kg, 06/03/20 10:17:00 CDT, Weight amitriptyli 2020-0 Yes 25 mg = 1 M [facility] ne 25 mg 9-30 tab, PO, l oral tablet 18:20: Bedtime, # [place] 00 30 tab, 1 Refill(s), Pharmacy: [facility] #[id number], 154.94, cm, 06/03/20 10:17:00 CDT, Height, 113.182, kg, 06/03/20 10:17:00 CDT, Weight amitriptyli 2020-0 Yes 25 mg = 1 M [facility] ne 25 mg 9-30 tab, PO, l oral tablet 18:20: Bedtime, # [place] 00 30 tab, 1 Refill(s), Pharmacy: [facility] #[id number], 154.94, cm, 06/03/20 10:17:00 CDT, Height, 113.182, kg, 06/03/20 10:17:00 CDT, Weight amitriptyli 2020-0 Yes 25 mg = 1 M [facility] ne 25 mg 9-30 tab, PO, l oral tablet 18:20: Bedtime, # [place] 00 30 tab, 1 Refill(s), Pharmacy: [facility] #[id number], 154.94, cm, 06/03/20 10:17:00 CDT, Height, 113.182, kg, 06/03/20 10:17:00 CDT, Weight amitriptyli 2020-0 Yes 25 mg = 1 M [facility] ne 25 mg 9-30 tab, PO, l oral tablet 18:20: Bedtime, # [place] 00 30 tab, 1 Refill(s), Pharmacy: [facility] #[id number], 154.94, cm, 06/03/20 10:17:00 CDT, Height, 113.182, kg, 06/03/20 10:17:00 CDT, Weight amitriptyli 2020-0 Yes 25 mg = 1 M [facility] ne 25 mg 9-30 tab, PO, l oral tablet 18:20: Bedtime, # [place] 00 30 tab, 1 Refill(s), Pharmacy: [facility] #[id number], 154.94, cm, 06/03/20 10:17:00 CDT, Height, 113.182, kg, 06/03/20 10:17:00 CDT, Weight amitriptyli 2020-0 Yes 25 mg = 1 M [facility] ne 25 mg 9-30 tab, PO, l oral tablet 18:20: Bedtime, # [place] 00 30 tab, 1 Refill(s), Pharmacy: [id number], 154.94, cm, 06/03/20 10:17:00 CDT, Height, 113.182, kg, 06/03/20 10:17:00 CDT, Weight amitriptyli 2020-0 Yes 25 mg = 1 M [facility] ne 25 mg 9-30 tab, PO, l oral tablet 18:20: Bedtime, # [place] 00 30 tab, 1 Refill(s), Pharmacy: [id number], 154.94, cm, 06/03/20 10:17:00 CDT, Height, 113.182, kg, 06/03/20 10:17:00 CDT, Weight amitriptyli 2020-0 Yes 25 mg = 1 M [facility] ne 25 mg 9-30 tab, PO, l oral tablet 18:20: Bedtime, # [place] 00 30 tab, 1 Refill(s), Pharmacy: [id number], 154.94, cm, 06/03/20 10:17:00 CDT, Height, 113.182, kg, 06/03/20 10:17:00 CDT, Weight amitriptyli 2020-0 Yes 25 mg = 1 M [facility] ne 25 mg 9-30 tab, PO, l oral tablet 18:20: Bedtime, # [place] 00 30 tab, 1 Refill(s), Pharmacy: [id number], 154.94, cm, 06/03/20 10:17:00 CDT, Height, 113.182, kg, 06/03/20 10:17:00 CDT, Weight amitriptyli 2020-0 Yes 25 mg = 1 M [facility] ne 25 mg 9-30 tab, PO, l oral tablet 18:20: Bedtime, # [place] 00 30 tab, 1 Refill(s), Pharmacy: [facility] #[id number], 154.94, cm, 06/03/20 10:17:00 CDT, Height, 113.182, kg, 06/03/20 10:17:00 CDT, Weight amitriptyli 2020-0 Yes 25 mg = 1 M [facility] ne 25 mg 9-30 tab, PO, l oral tablet 18:20: Bedtime, # [place] 00 30 tab, 1 Refill(s), Pharmacy: [facility] #[id number], 154.94, cm, 06/03/20 10:17:00 CDT, Height, 113.182, kg, 06/03/20 10:17:00 CDT, Weight amitriptyli 2020-0 Yes 25 mg = 1 M [facility] ne 25 mg 9-30 tab, PO, l oral tablet 18:20: Bedtime, # [place] 00 30 tab, 1 Refill(s), Pharmacy: [facility] #[id number], 154.94, cm, 06/03/20 10:17:00 CDT, Height, 113.182, kg, 06/03/20 10:17:00 CDT, Weight amitriptyli 2020-0 Yes 25 mg = 1 M [facility] ne 25 mg 9-30 tab, PO, l oral tablet 18:20: Bedtime, # [place] 00 30 tab, 1 Refill(s), Pharmacy: [facility] #[id number], 154.94, cm, 06/03/20 10:17:00 CDT, Height, 113.182, kg, 06/03/20 10:17:00 CDT, Weight amitriptyli 2020-0 Yes 25 mg = 1 M [facility] ne 25 mg 9-30 tab, PO, l oral tablet 18:20: Bedtime, # [place] 00 30 tab, 1 Refill(s), Pharmacy: [facility] #[id number], 154.94, cm, 06/03/20 10:17:00 CDT, Height, 113.182, kg, 06/03/20 10:17:00 CDT, Weight amitriptyli 2020-0 Yes 25 mg = 1 M emil ne 25 mg 9-30 tab, PO, l oral tablet 18:20: Bedtime, # [place] 00 30 tab, 1 Refill(s), Pharmacy: [facility] #[id number], 154.94, cm, 06/03/20 10:17:00 CDT, Height, 113.182, kg, 06/03/20 10:17:00 CDT, Weight topiramate 2020-0 Yes See [facility] 50 MG Oral 9-23 Instructio l Tablet 20:33: ns, 1/2 [place] [Topamax] 00 tab PO QAM and 1 full tab PO QHS, # 135 tab, 1 Refill(s), Pharmacy: [facility] #[id number], 154.94, cm, 06/03/20 10:17:00 CDT, Height, 113.182, kg, 06/03/20 10:17:00 CDT, Weight topiramate 2020-0 Yes See [facility] 50 MG Oral 9-23 Instructio l Tablet 20:33: ns, 1/2 [place] [Topamax] 00 tab PO QAM and 1 full tab PO QHS, # 135 tab, 1 Refill(s), Pharmacy: [facility] #[id number], 154.94, cm, 06/03/20 10:17:00 CDT, Height, 113.182, kg, 06/03/20 10:17:00 CDT, Weight topiramate 2020-0 Yes See [facility] 50 MG Oral 9-23 Instructio l Tablet 20:33: ns, 1/2 [place] [Topamax] 00 tab PO QAM and 1 full tab PO QHS, # 135 tab, 1 Refill(s), Pharmacy: [facility] #[id number], 154.94, cm, 06/03/20 10:17:00 CDT, Height, 113.182, kg, 06/03/20 10:17:00 CDT, Weight topiramate 2020-0 Yes See [facility] 50 MG Oral 9-23 Instructio l Tablet 20:33: ns, 1/2 [place] [Topamax] 00 tab PO QAM and 1 full tab PO QHS, # 135 tab, 1 Refill(s), Pharmacy: [facility] #[id number], 154.94, cm, 06/03/20 10:17:00 CDT, Height, 113.182, kg, 06/03/20 10:17:00 CDT, Weight topiramate 2020-0 Yes See [facility] 50 MG Oral 9-23 Instructio l Tablet 20:33: ns, 1/2 [place] [Topamax] 00 tab PO QAM and 1 full tab PO QHS, # 135 tab, 1 Refill(s), Pharmacy: [facility] #[id number], 154.94, cm, 06/03/20 10:17:00 CDT, Height, 113.182, kg, 06/03/20 10:17:00 CDT, Weight topiramate 2020-0 Yes See [facility] 50 MG Oral 9-23 Instructio l Tablet 20:33: ns, 1/2 [place] [Topamax] 00 tab PO QAM and 1 full tab PO QHS, # 135 tab, 1 Refill(s), Pharmacy: [facility] #[id number], 154.94, cm, 06/03/20 10:17:00 CDT, Height, 113.182, kg, 06/03/20 10:17:00 CDT, Weight topiramate 2020-0 Yes See [facility] 50 MG Oral 9-23 Instructio l Tablet 20:33: ns, 1/2 [place] [Topamax] 00 tab PO QAM and 1 full tab PO QHS, # 135 tab, 1 Refill(s), Pharmacy: [facility] #[id number], 154.94, cm, 06/03/20 10:17:00 CDT, Height, 113.182, kg, 06/03/20 10:17:00 CDT, Weight topiramate 2020-0 Yes See [facility] 50 MG Oral 9-23 Instructio l Tablet 20:33: ns, 1/2 [place] [Topamax] 00 tab PO QAM and 1 full tab PO QHS, # 135 tab, 1 Refill(s), Pharmacy: [facility] #[id number], 154.94, cm, 06/03/20 10:17:00 CDT, Height, 113.182, kg, 06/03/20 10:17:00 CDT, Weight topiramate 2020-0 Yes See [facility] 50 MG Oral 9-23 Instructio l Tablet 20:33: ns, 1/2 [place] [Topamax] 00 tab PO QAM and 1 full tab PO QHS, # 135 tab, 1 Refill(s), Pharmacy: [facility] #[id number], 154.94, cm, 06/03/20 10:17:00 CDT, Height, 113.182, kg, 06/03/20 10:17:00 CDT, Weight topiramate 2020-0 Yes See [facility] 50 MG Oral 9-23 Instructio l Tablet 20:33: ns, 1/2 [place] [Topamax] 00 tab PO QAM and 1 full tab PO QHS, # 135 tab, 1 Refill(s), Pharmacy: [facility] #[id number], 154.94, cm, 06/03/20 10:17:00 CDT, Height, 113.182, kg, 06/03/20 10:17:00 CDT, Weight topiramate 2020-0 Yes See [facility] 50 MG Oral 9-23 Instructio l Tablet 20:33: ns, 1/2 [place] [Topamax] 00 tab PO QAM and 1 full tab PO QHS, # 135 tab, 1 Refill(s), Pharmacy: [facility] #[id number], 154.94, cm, 06/03/20 10:17:00 CDT, Height, 113.182, kg, 06/03/20 10:17:00 CDT, Weight topiramate 2020-0 Yes See [facility] 50 MG Oral 9-23 Instructio l Tablet 20:33: ns, 1/2 [place] [Topamax] 00 tab PO QAM and 1 full tab PO QHS, # 135 tab, 1 Refill(s), Pharmacy: [id number], 154.94, cm, 06/03/20 10:17:00 CDT, Height, 113.182, kg, 06/03/20 10:17:00 CDT, Weight topiramate 2020-0 Yes See [facility] 50 MG Oral 9-23 Instructio l Tablet 20:33: ns, 1/2 [place] [Topamax] 00 tab PO QAM and 1 full tab PO QHS, # 135 tab, 1 Refill(s), Pharmacy: [facility] #[id number], 154.94, cm, 06/03/20 10:17:00 CDT, Height, 113.182, kg, 06/03/20 10:17:00 CDT, Weight topiramate 2020-0 Yes See [facility] 50 MG Oral 9-23 Instructio l Tablet 20:33: ns, 1/2 [place] [Topamax] 00 tab PO QAM and 1 full tab PO QHS, # 135 tab, 1 Refill(s), Pharmacy: [facility] #[id number], 154.94, cm, 06/03/20 10:17:00 CDT, Height, 113.182, kg, 06/03/20 10:17:00 CDT, Weight topiramate 2020-0 Yes See [facility] 50 MG Oral 9-23 Instructio l Tablet 20:33: ns, 1/2 [place] [Topamax] 00 tab PO QAM and 1 full tab PO QHS, # 135 tab, 1 Refill(s), Pharmacy: [facility] #[id number], 154.94, cm, 06/03/20 10:17:00 CDT, Height, 113.182, kg, 06/03/20 10:17:00 CDT, Weight topiramate 2020-0 No See [facility] 50 MG Oral 9-22 Instructio l Tablet 15:43: ns, 1/2 [place] [Topamax] 00 tab PO QAM and 1 full tab PO QHS, # 45 tab, 2 Refill(s), Pharmacy: [facility] #[id number], 154.94, cm, 06/03/20 10:17:00 CDT, Height, 113.182, kg, 06/03/20 10:17:00 CDT, Weight Sumatriptan 2020-0 Yes 50 mg = 1 M [facility] 50 MG Oral 9-22 tab, PO, l Tablet 15:43: ONCE, PRN [place] [facility] [Imitrex] 00 Headache, may repeat one time after 2 hours, # 9 tab, 3 Refill(s), Pharmacy: [id number], 154.94, cm, 06/03/20 10:17:00 CDT, Height, 113.182, kg, 06/03/20 10:17:00 CDT, Weight topiramate 2020-0 No See [facility] 50 MG Oral 9-22 Instructio l Tablet 15:43: ns, 1/2 [place] [Topamax] 00 tab PO QAM and 1 full tab PO QHS, # 45 tab, 2 Refill(s), Pharmacy: [facility] #[id number], 154.94, cm, 06/03/20 10:17:00 CDT, Height, 113.182, kg, 06/03/20 10:17:00 CDT, Weight Sumatriptan 2020-0 Yes 50 mg = 1 M [facility] 50 MG Oral 9-22 tab, PO, l Tablet 15:43: ONCE, PRN [place] [Imitrex] 00 Headache, may repeat one time after 2 hours, # 9 tab, 3 Refill(s), Pharmacy: [facility] #[id number], 154.94, cm, 06/03/20 10:17:00 CDT, Height, 113.182, kg, 06/03/20 10:17:00 CDT, Weight topiramate 2020-0 No See [facility] 50 MG Oral 9-22 Instructio l Tablet 15:43: ns, 1/2 [place] [Topamax] 00 tab PO QAM and 1 full tab PO QHS, # 45 tab, 2 Refill(s), Pharmacy: [facility] #[id number], 154.94, cm, 06/03/20 10:17:00 CDT, Height, 113.182, kg, 06/03/20 10:17:00 CDT, Weight Sumatriptan 2020-0 Yes 50 mg = 1 M [facility] 50 MG Oral 9-22 tab, PO, l Tablet 15:43: ONCE, PRN [place] [Imitrex] 00 Headache, may repeat one time after 2 hours, # 9 tab, 3 Refill(s), Pharmacy: [facility] #[id number], 154.94, cm, 06/03/20 10:17:00 CDT, Height, 113.182, kg, 06/03/20 10:17:00 CDT, Weight topiramate 2020-0 No See [facility] 50 MG Oral 9-22 Instructio l Tablet 15:43: ns, 1/2 [place] [Topamax] 00 tab PO QAM and 1 full tab PO QHS, # 45 tab, 2 Refill(s), Pharmacy: [id number], 154.94, cm, 06/03/20 10:17:00 CDT, Height, 113.182, kg, 06/03/20 10:17:00 CDT, Weight Sumatriptan 2020-0 Yes 50 mg = 1 M [facility] 50 MG Oral 9-22 tab, PO, l Tablet 15:43: ONCE, PRN [place] [Imitrex] 00 Headache, may repeat one time after 2 hours, # 9 tab, 3 Refill(s), Pharmacy: [facility] #[id number], 154.94, cm, 06/03/20 10:17:00 CDT, Height, 113.182, kg, 06/03/20 10:17:00 CDT, Weight topiramate 2020-0 No See [facility] 50 MG Oral 9-22 Instructio l Tablet 15:43: ns, 1/2 [place] [Topamax] 00 tab PO QAM and 1 full tab PO QHS, # 45 tab, 2 Refill(s), Pharmacy: [facility] #[id number], 154.94, cm, 06/03/20 10:17:00 CDT, Height, 113.182, kg, 06/03/20 10:17:00 CDT, Weight Sumatriptan 2020-0 Yes 50 mg = 1 M [facility] 50 MG Oral 9-22 tab, PO, l Tablet 15:43: ONCE, PRN [place] [Imitrex] 00 Headache, may repeat one time after 2 hours, # 9 tab, 3 Refill(s), Pharmacy: [facility] #[id number], 154.94, cm, 06/03/20 10:17:00 CDT, Height, 113.182, kg, 06/03/20 10:17:00 CDT, Weight topiramate 2020-0 No See [facility] 50 MG Oral 9-22 Instructio l Tablet 15:43: ns, 1/2 [place] [Topamax] 00 tab PO QAM and 1 full tab PO QHS, # 45 tab, 2 Refill(s), Pharmacy: [facility] #[id number], 154.94, cm, 06/03/20 10:17:00 CDT, Height, 113.182, kg, 06/03/20 10:17:00 CDT, Weight Sumatriptan 2020-0 Yes 50 mg = 1 M [facility] 50 MG Oral 9-22 tab, PO, l Tablet 15:43: ONCE, PRN [place] [Imitrex] 00 Headache, may repeat one time after 2 hours, # 9 tab, 3 Refill(s), Pharmacy: [id number], 154.94, cm, 06/03/20 10:17:00 CDT, Height, 113.182, kg, 06/03/20 10:17:00 CDT, Weight topiramate 2020-0 No See [facility] 50 MG Oral 9-22 Instructio l Tablet 15:43: ns, 1/2 [place] [Topamax] 00 tab PO QAM and 1 full tab PO QHS, # 45 tab, 2 Refill(s), Pharmacy: [facility] #[id number], 154.94, cm, 06/03/20 10:17:00 CDT, Height, 113.182, kg, 06/03/20 10:17:00 CDT, Weight Sumatriptan 2020-0 Yes 50 mg = 1 M [facility] 50 MG Oral 9-22 tab, PO, l Tablet 15:43: ONCE, PRN [place] [facility] [Imitrex] 00 Headache, may repeat one time after 2 hours, # 9 tab, 3 Refill(s), Pharmacy: [facility] #[id number], 154.94, cm, 06/03/20 10:17:00 CDT, Height, 113.182, kg, 06/03/20 10:17:00 CDT, Weight topiramate 2020-0 No See [facility] 50 MG Oral 9-22 Instructio l Tablet 15:43: ns, 1/2 [place] [Topamax] 00 tab PO QAM and 1 full tab PO QHS, # 45 tab, 2 Refill(s), Pharmacy: [facility] #[id number], 154.94, cm, 06/03/20 10:17:00 CDT, Height, 113.182, kg, 06/03/20 10:17:00 CDT, Weight Sumatriptan 2020-0 Yes 50 mg = 1 M [facility] 50 MG Oral 9-22 tab, PO, l Tablet 15:43: ONCE, PRN [place] [facility] [Imitrex] 00 Headache, may repeat one time after 2 hours, # 9 tab, 3 Refill(s), Pharmacy: [id number], 154.94, cm, 06/03/20 10:17:00 CDT, Height, 113.182, kg, 06/03/20 10:17:00 CDT, Weight topiramate 2020-0 No See Memoria 50 MG Oral 9-22 Instructio l Tablet 15:43: ns, 1/2 [place] [Topamax] 00 tab PO QAM and 1 full tab PO QHS, # 45 tab, 2 Refill(s), Pharmacy: [facility] #[id number], 154.94, cm, 06/03/20 10:17:00 CDT, Height, 113.182, kg, 06/03/20 10:17:00 CDT, Weight Sumatriptan 2020-0 Yes 50 mg = 1 M emoria 50 MG Oral 9-22 tab, PO, l Tablet 15:43: ONCE, PRN [place] n [Imitrex] 00 Headache, may repeat one time after 2 hours, # 9 tab, 3 Refill(s), Pharmacy: [facility] #[id number], 154.94, cm, 06/03/20 10:17:00 CDT, Height, 113.182, kg, 06/03/20 10:17:00 CDT, Weight topiramate 2020-0 No See Memoria 50 MG Oral 9-22 Instructio l Tablet 15:43: ns, 1/2 [place] [Topamax] 00 tab PO QAM and 1 full tab PO QHS, # 45 tab, 2 Refill(s), Pharmacy: [facility] #[id number], 154.94, cm, 06/03/20 10:17:00 CDT, Height, 113.182, kg, 06/03/20 10:17:00 CDT, Weight Sumatriptan 2020-0 Yes 50 mg = 1 M emoria 50 MG Oral 9-22 tab, PO, l Tablet 15:43: ONCE, PRN [place] n [Imitrex] 00 Headache, may repeat one time after 2 hours, # 9 tab, 3 Refill(s), Pharmacy: [facility] #[id number], 154.94, cm, 06/03/20 10:17:00 CDT, Height, 113.182, kg, 06/03/20 10:17:00 CDT, Weight topiramate 2020-0 No See Memoria 50 MG Oral 9-22 Instructio l Tablet 15:43: ns, 1/2 [place] [Topamax] 00 tab PO QAM and 1 full tab PO QHS, # 45 tab, 2 Refill(s), Pharmacy: [id number], 154.94, cm, 06/03/20 10:17:00 CDT, Height, 113.182, kg, 06/03/20 10:17:00 CDT, Weight Sumatriptan 2020-0 Yes 50 mg = 1 M emoria 50 MG Oral 9-22 tab, PO, l Tablet 15:43: ONCE, PRN [place] n [Imitrex] 00 Headache, may repeat one time after 2 hours, # 9 tab, 3 Refill(s), Pharmacy: [id number], 154.94, cm, 06/03/20 10:17:00 CDT, Height, 113.182, kg, 06/03/20 10:17:00 CDT, Weight topiramate 2020-0 No See Memoria 50 MG Oral 9-22 Instructio l Tablet 15:43: ns, 1/2 [place] [Topamax] 00 tab PO QAM and 1 full tab PO QHS, # 45 tab, 2 Refill(s), Pharmacy: [id number], 154.94, cm, 06/03/20 10:17:00 CDT, Height, 113.182, kg, 06/03/20 10:17:00 CDT, Weight Sumatriptan 2020-0 Yes 50 mg = 1 M emoria 50 MG Oral 9-22 tab, PO, l Tablet 15:43: ONCE, PRN [place] n [Imitrex] 00 Headache, may repeat one time after 2 hours, # 9 tab, 3 Refill(s), Pharmacy: [id number], 154.94, cm, 06/03/20 10:17:00 CDT, Height, 113.182, kg, 06/03/20 10:17:00 CDT, Weight topiramate 2020-0 No See Memoria 50 MG Oral 9-22 Instructio l Tablet 15:43: ns, 1/2 [place] [Topamax] 00 tab PO QAM and 1 full tab PO QHS, # 45 tab, 2 Refill(s), Pharmacy: [facility] #[id number], 154.94, cm, 06/03/20 10:17:00 CDT, Height, 113.182, kg, 06/03/20 10:17:00 CDT, Weight Sumatriptan 2020-0 Yes 50 mg = 1 M emoria 50 MG Oral 9-22 tab, PO, l Tablet 15:43: ONCE, PRN [place] n [Imitrex] 00 Headache, may repeat one time after 2 hours, # 9 tab, 3 Refill(s), Pharmacy: [facility] #[id number], 154.94, cm, 06/03/20 10:17:00 CDT, Height, 113.182, kg, 06/03/20 10:17:00 CDT, Weight topiramate 2020-0 No See Memoria 50 MG Oral 9-22 Instructio l Tablet 15:43: ns, 1/2 [place] [Topamax] 00 tab PO QAM and 1 full tab PO QHS, # 45 tab, 2 Refill(s), Pharmacy: [facility] #[id number], 154.94, cm, 06/03/20 10:17:00 CDT, Height, 113.182, kg, 06/03/20 10:17:00 CDT, Weight Sumatriptan 2020-0 Yes 50 mg = 1 M emoria 50 MG Oral 9-22 tab, PO, l Tablet 15:43: ONCE, PRN [place] n [Imitrex] 00 Headache, may repeat one time after 2 hours, # 9 tab, 3 Refill(s), Pharmacy: [facility] #[id number], 154.94, cm, 06/03/20 10:17:00 CDT, Height, 113.182, kg, 06/03/20 10:17:00 CDT, Weight topiramate 2020-0 No See Memoria 50 MG Oral 9-22 Instructio l Tablet 15:43: ns, 1/2 [place] [Topamax] 00 tab PO QAM and 1 full tab PO QHS, # 45 tab, 2 Refill(s), Pharmacy: [facility] #[id number], 154.94, cm, 06/03/20 10:17:00 CDT, Height, 113.182, kg, 06/03/20 10:17:00 CDT, Weight Sumatriptan 2020-0 Yes 50 mg = 1 M emoria 50 MG Oral 9-22 tab, PO, l Tablet 15:43: ONCE, PRN [place] n [Imitrex] 00 Headache, may repeat one time after 2 hours, # 9 tab, 3 Refill(s), Pharmacy: [facility] #[id number], 154.94, cm, 06/03/20 10:17:00 CDT, Height, 113.182, kg, 06/03/20 10:17:00 CDT, Weight Ibuprofen 2020-0 Yes 400 mg = 2 Me moria 200 MG Oral 9-22 tab, PO, l Tablet 15:20: Q4H, PRN [place] [Advil] 00 Pain, # 120 tab, 0 Refill(s) Ibuprofen 2020-0 Yes 400 mg = 2 Me moria 200 MG Oral 9-22 tab, PO, l Tablet 15:20: Q4H, PRN [place] [Advil] 00 Pain, # 120 tab, 0 Refill(s) Ibuprofen 2020-0 Yes 400 mg = 2 Me moria 200 MG Oral 9-22 tab, PO, l Tablet 15:20: Q4H, PRN [place] [Advil] 00 Pain, # 120 tab, 0 [...] tab, PO, l Tablet 15:20: Q4H, PRN [place] [Advil] 00 Pain, # 120 tab, 0 Refill(s) Ibuprofen 2020-0 Yes 400 mg = 2 Me moria 200 MG Oral 9-22 tab, PO, l Tablet 15:20: Q4H, PRN [place] [Advil] 00 Pain, # 120 tab, 0 Refill(s) Ibuprofen 2020-0 Yes 400 mg = 2 Me moria 200 MG Oral 9-22 tab, PO, l Tablet 15:20: Q4H, PRN [place] [Advil] 00 Pain, # 120 tab, 0 [...] tab, PO, l Tablet 15:20: Q4H, PRN [place] [Advil] 00 Pain, # 120 tab, 0 [...] Daily, l oral 14:56: # 90 tab, [place] enteric 00 0 coated Refill(s), tablet Pharmacy: 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, Weight { 2020-0 Yes See Memoria (Methylpred 6-12 Instructio l nisolone 4 13:33: ns, PO, Herm sienna MG Oral 00 Take by Tablet mouth as [Medrol]) } directed Pack on label., [Medrol X 6 day, # Dosepak] 21 tab, 0 Refill(s), Pharmacy: [facility] #[id number], 154.94, cm, 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, 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, 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, kg, 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, Weight Cyclobenzap 2020-0 Yes 10 mg = 1 M emoria rine 6-12 tab, PO, l hydrochlori 13:33: Bedtime, He rmann de 10 MG 00 PRN for Oral Tablet spasm, # [Flexeril] 15 tab, 0 Refill(s), Pharmacy: [facility] #[id number], 154.94, cm, 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, 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, 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, kg, 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, Weight {2019-0 Yes See Memoria (Methylpred 6-12 Instructio l nisolone 4 13:33: ns, PO, Herm sienna MG Oral 00 Take by Tablet mouth as [Medrol]) } directed Pack on label., [Medrol X 6 day, # Dosepak] 21 tab, 0 Refill(s), Pharmacy: [facility] #[id number], 154.94, cm, 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, Height, 114.818, kg, 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, Weight Cyclobenzap 2020-0 Yes 10 mg = 1 M emoria rine 6-12 tab, PO, l hydrochlori 13:33: Bedtime, He rmann de 10 MG 00 PRN for Oral Tablet spasm, # [Flexeril] 15 tab, 0 Refill(s), Pharmacy: [facility] #[id number], 154.94, cm, 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, Height, 114.818, kg, 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, Weight {21 2020-0 Yes See Memoria (Methylpred 6-12 Instructio l nisolone 4 13:33: ns, PO, Herm sienna MG Oral 00 Take by Tablet mouth as [Medrol]) } directed Pack on label., [Medrol X 6 day, # Dosepak] 21 tab, 0 Refill(s), Pharmacy: [facility] #[id number], 154.94, cm, 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, Height, 114.818, kg, 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, Weight Cyclobenzap 2020-0 Yes 10 mg = 1 M emoria rine 6-12 tab, PO, l hydrochlori 13:33: Bedtime, He rmann de 10 MG 00 PRN for Oral Tablet spasm, # [Flexeril] 15 tab, 0 Refill(s), Pharmacy: [facility] #[id number], 154.94, cm, 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, Height, 114.818, kg, 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, Weight {21 2019-0 Yes See Memoria (Methylpred 6-12 Instructio l nisolone 4 13:33: ns, PO, Herm sienna MG Oral 00 Take by Tablet mouth as [Medrol]) } directed Pack on label., [Medrol X 6 day, # Dosepak] 21 tab, 0 Refill(s), Pharmacy: [facility] #[id number], 154.94, cm, 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, Height, 114.818, kg, 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, Weight Cyclobenzap 2020-0 Yes 10 mg = 1 M emoria rine 6-12 tab, PO, l hydrochlori 13:33: Bedtime, He rmann de 10 MG 00 PRN for Oral Tablet spasm, # [Flexeril] 15 tab, 0 Refill(s), Pharmacy: [facility] #[id number], 154.94, cm, 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, Height, 114.818, kg, 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, Weight {21 2020-0 Yes See Memoria (Methylpred 6-12 Instructio l nisolone 4 13:33: ns, PO, Herm sienna MG Oral 00 Take by Tablet mouth as [Medrol]) } directed Pack on label., [Medrol X 6 day, # Dosepak] 21 tab, 0 Refill(s), Pharmacy: [facility] #[id number], 154.94, cm, 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, Height, 114.818, kg, 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, Weight Cyclobenzap 2020-0 Yes 10 mg = 1 M emoria rine 6-12 tab, PO, l hydrochlori 13:33: Bedtime, He rmann de 10 MG 00 PRN for Oral Tablet spasm, # [Flexeril] 15 tab, 0 Refill(s), Pharmacy: [facility] #7120, 154.94, cm, 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, Height, 114.818, kg, 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, Weight {21 2020-0 Yes See Memoria (Methylpred 6-12 Instructio l nisolone 4 13:33: ns, PO, Herm sienna MG Oral 00 Take by Tablet mouth as [Medrol]) } directed Pack on label., [Medrol X 6 day, # Dosepak] 21 tab, 0 Refill(s), Pharmacy: [facility] #7120, 154.94, cm, 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, Height, 114.818, kg, 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, Weight Cyclobenzap 2020-0 Yes 10 mg = 1 M emoria rine 6-12 tab, PO, l hydrochlori 13:33: Bedtime, He rmann de 10 MG 00 PRN for Oral Tablet spasm, # [Flexeril] 15 tab, 0 Refill(s), Pharmacy: [facility] #7120, 154.94, cm, 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, Height, 114.818, kg, 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, Weight {2019-0 Yes See Memoria (Methylpred 6-12 Instructio l nisolone 4 13:33: ns, PO, Herm sienna MG Oral 00 Take by Tablet mouth as [Medrol]) } directed Pack on label., [Medrol X 6 day, # Dosepak] 21 tab, 0 Refill(s), Pharmacy: [facility] #7120, 154.94, cm, 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, Height, 114.818, kg, 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, Weight Cyclobenzap 2020-0 Yes 10 mg = 1 M emoria rine 6-12 tab, PO, l hydrochlori 13:33: Bedtime, He rmann de 10 MG 00 PRN for Oral Tablet spasm, # [Flexeril] 15 tab, 0 Refill(s), Pharmacy: [facility] #7120, 154.94, cm, 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, Height, 114.818, kg, 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, Weight {2019-0 Yes See Memoria (Methylpred 6-12 Instructio l nisolone 4 13:33: ns, PO, Herm sienna MG Oral 00 Take by Tablet mouth as [Medrol]) } directed Pack on label., [Medrol X 6 day, # Dosepak] 21 tab, 0 Refill(s), Pharmacy: [facility] #7120, 154.94, cm, 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, Height, 114.818, kg, 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, Weight Cyclobenzap 2020-0 Yes 10 mg = 1 M emoria rine 6-12 tab, PO, l hydrochlori 13:33: Bedtime, He rmann de 10 MG 00 PRN for Oral Tablet spasm, # [Flexeril] 15 tab, 0 Refill(s), Pharmacy: [facility] #7120, 154.94, cm, 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, Height, 114.818, kg, 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, Weight {21 2020-0 Yes See Memoria (Methylpred 6-12 Instructio l nisolone 4 13:33: ns, PO, Herm sienna MG Oral 00 Take by Tablet mouth as [Medrol]) } directed Pack on label., [Medrol X 6 day, # Dosepak] 21 tab, 0 Refill(s), Pharmacy: [facility] #7120, 154.94, cm, 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, Height, 114.818, kg, 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, Weight Cyclobenzap 2020-0 Yes 10 mg = 1 M emoria rine 6-12 tab, PO, l hydrochlori 13:33: Bedtime, He rmann de 10 MG 00 PRN for Oral Tablet spasm, # [Flexeril] 15 tab, 0 Refill(s), Pharmacy: [facility] #7120, 154.94, cm, 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, Height, 114.818, kg, 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, Weight {21 2020-0 Yes See Memoria (Methylpred 6-12 Instructio l nisolone 4 13:33: ns, PO, Herm sienna MG Oral 00 Take by Tablet mouth as [Medrol]) } directed Pack on label., [Medrol X 6 day, # Dosepak] 21 tab, 0 Refill(s), Pharmacy: [facility] #7120, 154.94, cm, 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, Height, 114.818, kg, 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, Weight Cyclobenzap 2020-0 Yes 10 mg = 1 M emoria rine 6-12 tab, PO, l hydrochlori 13:33: Bedtime, He rmann de 10 MG 00 PRN for Oral Tablet spasm, # [Flexeril] 15 tab, 0 Refill(s), Pharmacy: [facility] #7120, 154.94, cm, 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, Height, 114.818, kg, 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, Weight {21 2020-0 Yes See Memoria (Methylpred 6-12 Instructio l nisolone 4 13:33: ns, PO, Herm sienna MG Oral 00 Take by Tablet mouth as [Medrol]) } directed Pack on label., [Medrol X 6 day, # Dosepak] 21 tab, 0 Refill(s), Pharmacy: [facility] #7120, 154.94, cm, 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, Height, 114.818, kg, 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, Weight Cyclobenzap 2020-0 Yes 10 mg = 1 M emoria rine 6-12 tab, PO, l hydrochlori 13:33: Bedtime, He rmann de 10 MG 00 PRN for Oral Tablet spasm, # [Flexeril] 15 tab, 0 Refill(s), Pharmacy: [facility] #7120, 154.94, cm, 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, Height, 114.818, kg, 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, Weight { Yes See Memoria (Methylpred 6-12 Instructio l nisolone 4 13:33: ns, PO, Herm sienna MG Oral 00 Take by Tablet mouth as [Medrol]) } directed Pack on label., [Medrol X 6 day, # Dosepak] 21 tab, 0 Refill(s), Pharmacy: [facility] #7120, 154.94, cm, 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, Height, 114.818, kg, 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, Weight Cyclobenzap 2020-0 Yes 10 mg = 1 M emoria rine 6-12 tab, PO, l hydrochlori 13:33: Bedtime, He rmann de 10 MG 00 PRN for Oral Tablet spasm, # [Flexeril] 15 tab, 0 Refill(s), Pharmacy: [facility] #7120, 154.94, cm, 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, Height, 114.818, kg, 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, Weight { Yes See Memoria (Methylpred 6-12 Instructio l nisolone 4 13:33: ns, PO, Herm sienna MG Oral 00 Take by Tablet mouth as [Medrol]) } directed Pack on label., [Medrol X 6 day, # Dosepak] 21 tab, 0 Refill(s), Pharmacy: [facility] #[facility]120, 154.94, cm, 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, Height, 114.818, kg, 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, Weight Cyclobenzap 2020-0 Yes 10 mg = 1 M emoria rine 6-12 tab, PO, l hydrochlori 13:33: Bedtime, He rmann de 10 MG 00 PRN for Oral Tablet spasm, # [Flexeril] 15 tab, 0 Refill(s), Pharmacy: [facility] #7120, 154.94, cm, 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, Height, 114.818, kg, 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, Weight {21 2020-0 Yes See Memoria (Methylpred 6-12 Instructio l nisolone 4 13:33: ns, PO, Herm sienna MG Oral 00 Take by Tablet mouth as [Medrol]) } directed Pack on label., [Medrol X 6 day, # Dosepak] 21 tab, 0 Refill(s), Pharmacy: [facility] #7120, 154.94, cm, 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, Height, 114.818, kg, 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, Weight Cyclobenzap 2020-0 Yes 10 mg = 1 M emoria rine 6-12 tab, PO, l hydrochlori 13:33: Bedtime, He rmann de 10 MG 00 PRN for Oral Tablet spasm, # [Flexeril] 15 tab, 0 Refill(s), Pharmacy: [facility] #7120, 154.94, cm, 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, Height, 114.818, kg, 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, Weight Hydrochloro 2020-0 Yes 0 Memori a thiazide 6-11 Refill(s) l 12.5 MG 21:50: [place] Oral 00 Capsule non-formula 2020-0 Yes Refill(s) M emoria ry 6-11 0 l 21:50: [place] 00 Phentermine 2020-0 Yes 0 Memori a Hydrochlori 6-11 Refill(s) l de 37.5 MG 21:50: [place] Oral Tablet 00 Hydrochloro 2020-0 Yes 0 [...] thiazide 6-11 Refill(s) l 12.5 MG 21:50: [place] Oral 00 Capsule non-formula 2020-0 Yes Refill(s) M emoria ry 6-11 0 l 21:50: [place] 00 Phentermine 2020-0 Yes 0 Memori a Hydrochlori 6-11 Refill(s) l de 37.5 MG 21:50: [place] Oral Tablet 00 Hydrochloro 2020-0 Yes 0 Memori a thiazide 6-11 Refill(s) l 12.5 MG 21:50: [place] Oral 00 Capsule non-formula 2020-0 Yes Refill(s) M emoria ry 6-11 0 l 21:50: [place] 00 Phentermine 2020-0 Yes 0 Memori a Hydrochlori 6-11 Refill(s) l de 37.5 MG 21:50: [place] Oral Tablet 00 Hydrochloro 2020-0 Yes 0 [...] M emoria ry 6-11 0 l 21:50: [place] 00 Phentermine 2020-0 Yes 0 Memori a Hydrochlori 6-11 Refill(s) l de 37.5 MG 21:50: [place] Oral Tablet 00 Hydrochloro 2020-0 Yes 0 Memori a thiazide 6-11 Refill(s) l 12.5 MG 21:50: [place] Oral 00 Capsule non-formula 2020-0 Yes Refill(s) M emoria ry 6-11 0 l 21:50: [place] 00 Phentermine 2020-0 Yes 0 Memori a Hydrochlori 6-11 Refill(s) l de 37.5 MG 21:50: [place] Oral Tablet 00 Hydrochloro 2020-0 Yes 0 Memori a thiazide 6-11 Refill(s) l 12.5 MG 21:50: [place] Oral 00 Capsule non-formula 2020-0 Yes Refill(s) M emoria ry 6-11 0 l 21:50: [place] 00 Phentermine 2020-0 Yes 0 Memori a Hydrochlori 6-11 Refill(s) l de 37.5 MG 21:50: [place] Oral Tablet 00 Hydrochloro 2020-0 Yes 0 Memori a thiazide 6-11 Refill(s) l 12.5 MG 21:50: [place] Oral 00 Capsule non-formula 2020-0 Yes Refill(s) M emoria ry 6-11 0 l 21:50: [place] 00 Phentermine 2020-0 Yes 0 Memori a Hydrochlori 6-11 Refill(s) l de 37.5 MG 21:50: [place] Oral Tablet 00 Hydrochloro 2020-0 Yes 0 Memori a thiazide 6-11 Refill(s) l 12.5 MG 21:50: [place] Oral 00 Capsule non-formula 2020-0 Yes Refill(s) M emoria ry 6-11 0 l 21:50: [place] 00 Phentermine 2020-0 Yes 0 Memori a Hydrochlori 6-11 Refill(s) l de 37.5 MG 21:50: [place] Oral Tablet 00 Hydrochloro 2020-0 Yes 0 Memori a thiazide 6-11 Refill(s) l 12.5 MG 21:50: [place] Oral 00 Capsule non-formula 2020-0 Yes Refill(s) M emoria ry 6-11 0 l 21:50: [place] 00 Phentermine 2020-0 Yes 0 Memori a Hydrochlori 6-11 Refill(s) l de 37.5 MG 21:50: [place] Oral Tablet 00 Hydrochloro 2020-0 Yes 0 Memori a thiazide 6-11 Refill(s) l 12.5 MG 21:50: [place] Oral 00 Capsule non-formula 2020-0 Yes Refill(s) Max emoria ry 6-11 0 l 21:50: [place] 00 Phentermine 2020-0 Yes 0 Memori a Hydrochlori 6-11 Refill(s) l de 37.5 MG 21:50: [place] Oral Tablet 00 Hydrochloro 2020-0 Yes 0 Memori a thiazide 6-11 Refill(s) l 12.5 MG 21:50: [place] Oral 00 Capsule non-formula 2020-0 Yes Refill(s) Max emoria ry 6-11 0 l 21:50: [place] 00 Phentermine 2020-0 Yes 0 Memori a Hydrochlori 6-11 Refill(s) l de 37.5 MG 21:50: [place] Oral Tablet 00 Folic Acid 2020-0 Yes 0 Memoria 1 MG Oral 6-11 Refill(s) l Tablet 21:49: [place] 00 Folic Acid 2020-0 Yes 0 Memoria 1 MG Oral 6-11 Refill(s) l Tablet 21:49: [place] 00 Folic Acid 2020-0 Yes 0 Memoria [...] PO, Daily, l oral 13:34: # 90 tabRustam enteric 48 Pharmacy: [id number] pantoprazol 2020-0 Yes = 1 tab, Me moria e 40 mg 5-04 PO, Daily, l oral 13:34: # 90 tab, [place] enteric 48 Pharmacy: [id number] pantoprazol 2020-0 Yes = 1 tab, Me moria e 40 mg 5-04 PO, Daily, l oral 13:34: # 90 tab, [place] [facility] 48 Pharmacy: [id number] Hydrochloro 2020-0 Yes = 1 tab, Me moria thiazide 25 1-27 PO, Daily, l MG Oral 15:06: PRN [place] Tablet 37 NEEDED FOR SWELLING, # 90 tab, Pharmacy: [id number] Hydrochloro 2020-0 Yes = 1 tab, Me moria thiazide 25 1-27 PO, Daily, l MG Oral 15:06: PRN [place] Tablet 37 NEEDED FOR SWELLING, # 90 tab, Pharmacy: [facility][id number] Hydrochloro 2020-0 Yes = 1 tab, Me moria thiazide 25 1-27 PO, Daily, l MG Oral 15:06: PRN [place] Tablet 37 NEEDED FOR SWELLING, # 90 tab, Pharmacy: [id number] Hydrochloro 2020-0 Yes = 1 tab, Me moria thiazide 25 1-27 PO, Daily, l MG Oral 15:06: PRN [place] Tablet 37 NEEDED FOR SWELLING, # 90 tab, Pharmacy: [id number] Hydrochloro 2020-0 Yes = 1 tab, Me moria thiazide 25 1-27 PO, Daily, l MG Oral 15:06: PRN [place] Tablet 37 NEEDED FOR SWELLING, # 90 tab, Pharmacy: [id number] Hydrochloro 2020-0 Yes = 1 tab, Me moria thiazide 25 1-27 PO, Daily, l MG Oral 15:06: PRN [place] Tablet 37 NEEDED FOR SWELLING, # 90 tab, Pharmacy: [id number] Hydrochloro 2020-0 Yes = 1 tab, Me moria thiazide 25 1-27 PO, Daily, l MG Oral 15:06: PRN [place] Tablet 37 NEEDED FOR SWELLING, # 90 tab, Pharmacy: [id number] Hydrochloro 2020-0 Yes = 1 tab, Me moria thiazide 25 1-27 PO, Daily, l MG Oral 15:06: PRN [place] Tablet 37 NEEDED FOR SWELLING, # 90 tab, Pharmacy: [id number] Hydrochloro 2020-0 Yes = 1 tab, Me moria thiazide 25 1-27 PO, Daily, l MG Oral 15:06: PRN [place] Tablet 37 NEEDED FOR SWELLING, # 90 tab, Pharmacy: [id number] Hydrochloro 2020-0 Yes = 1 tab, Me moria thiazide 25 1-27 PO, Daily, l MG Oral 15:06: PRN [place] Tablet 37 NEEDED FOR SWELLING, # 90 tab, Pharmacy: [facility] #[id number] Hydrochloro 2020-0 Yes = 1 tab, Me moria thiazide 25 1-27 PO, Daily, l MG Oral 15:06: PRN [place] Tablet 37 NEEDED FOR SWELLING, # 90 tab, Pharmacy: [id number] Hydrochloro 2020-0 Yes = 1 tab, Me moria thiazide 25 1-27 PO, Daily, l MG Oral 15:06: PRN [place] Tablet 37 NEEDED FOR SWELLING, # 90 tab, Pharmacy: [id number] Hydrochloro 2020-0 Yes = 1 tab, Me moria thiazide 25 1-27 PO, Daily, l MG Oral 15:06: PRN [place] Tablet 37 NEEDED FOR SWELLING, # 90 tab, Pharmacy: [facility] #[id number] Hydrochloro 2020-0 Yes = 1 tab, Me moria thiazide 25 1-27 PO, Daily, l MG Oral 15:06: PRN [place] Tablet 37 NEEDED FOR SWELLING, # 90 tab, Pharmacy: [id number] Hydrochloro 2019-0 Yes = 1 tab, Me moria thiazide 25 1-27 PO, Daily, l MG Oral 15:06: PRN [place] Tablet 37 NEEDED FOR SWELLING, # 90 tab, Pharmacy: [id number] Clarithromy 2018-09 Yes 500 mg = 1 Memoria roberto 500 MG - tab, PO, l Oral Tablet 20:13: Q12H, X 10 [place] [Biaxin] 00 day, # 20 tab, 0 Refill(s), Pharmacy: [id number] {2018-09 Yes See Memoria (Methylpred - Instructio l nisolone 4 20:13: ns, PO, Herm sienna MG Oral 00 Take by Tablet mouth as [Medrol]) } directed Pack on label., [Medrol X 6 day, # Dosepak] 1 Pack, 0 Refill(s), [id number] 2018-09 Yes 500 mg = 1 Memoria roberto 500 MG 1-26 tab, PO, l Oral Tablet 20:13: Q12H, X 10 [place] [Biaxin] 00 day, # 20 tab, 0 Refill(s), [id number] {2018-09 Yes See Memoria (Methylpred 1-26 Instructio l nisolone 4 20:13: ns, PO, Herm sienna MG Oral 00 Take by Tablet mouth as [Medrol]) } directed Pack on label., [Medrol X 6 day, # Dosepak] 1 Pack, 0 Refill(s), [id number] [place] [address] 2018-09 Yes 500 mg = 1 Memoria roberto 500 MG 1-26 tab, PO, l Oral Tablet 20:13: Q12H, X 10 [place] [Biaxin] 00 day, # 20 tab, 0 Refill(s), [id number] {2018-09 Yes See Memoria (Methylpred 1-26 Instructio l nisolone 4 20:13: ns, PO, Herm sienna MG Oral 00 Take by Tablet mouth as [Medrol]) } directed Pack on label., [Medrol X 6 day, # Dosepak] 1 Pack, 0 Refill(s), [id number] Yes [facility] mg = 1 Memoria roberto 500 MG 1-26 tab, PO, l Oral Tablet 20:13: Q12H, X 10 [place] [Biaxin] 00 day, # 20 tab, 0 Refill(s), [id number] {2018-09 Yes See Memoria (Methylpred 1-26 Instructio l nisolone 4 20:13: ns, PO, Herm sienna MG Oral 00 Take by Tablet mouth as [Medrol]) } directed Pack on label., [Medrol X 6 day, # Dosepak] 1 Pack, 0 Refill(s), Pharmacy: [facility] #[id number] 2018-09 Yes 500 mg = 1 Memoria roberto 500 MG 1-26 tab, PO, l Oral Tablet 20:13: Q12H, X 10 [place] [Biaxin] 00 day, # 20 tab, 0 Refill(s), [facility] [id number] {2018[facility]09 Yes See Memoria (Methylpred 1-26 Instructio l nisolone 4 20:13: ns, PO, Herm sienna MG Oral 00 Take by Tablet mouth as [Medrol]) } directed Pack on label., [Medrol X 6 day, # Dosepak] 1 Pack, 0 Refill(s), Pharmacy: [facility] #7120 [facility] 2018-09 Yes 500 mg = 1 Memoria roberto 500 MG 1-26 tab, PO, l Oral Tablet 20:13: Q12H, X 10 [place] [Biaxin] 00 day, # 20 tab, 0 Refill(s), [id number] {2018-09 Yes See Memoria (Methylpred 1-26 Instructio l nisolone 4 20:13: ns, PO, Herm sienna MG Oral 00 Take by Tablet mouth as [Medrol]) } directed Pack on label., [Medrol X 6 day, # Dosepak] 1 Pack, 0 Refill(s), [id number] 2018-09 Yes 500 mg = 1 Memoria roberto 500 MG 1-26 tab, PO, l Oral Tablet 20:13: Q12H, X 10 [place] [Biaxin] 00 day, # 20 tab, 0 Refill(s), [id number] {2018-09 Yes See Memoria (Methylpred 1-26 Instructio l nisolone 4 20:13: ns, PO, Herm sienna MG Oral 00 Take by Tablet mouth as [Medrol]) } directed Pack on label., [Medrol X 6 day, # Dosepak] 1 Pack, 0 Refill(s), [id number] 2018-09 Yes 500 mg = 1 Memoria roberto 500 MG 1-26 tab, PO, l Oral Tablet 20:13: Q12H, X 10 [place] [Biaxin] 00 day, # 20 tab, 0 Refill(s), Pharmacy: [facility] #[id number] {2018-09 Yes See Memoria (Methylpred 1-26 Instructio l nisolone 4 20:13: ns, PO, Herm sienna MG Oral 00 Take by Tablet mouth as [Medrol]) } directed Pack on label., [Medrol X 6 day, # Dosepak] 1 Pack, 0 Refill(s), [facility] [place] [address] 2018-09 Yes 500 mg = 1 Memoria roberto 500 MG 1-26 tab, PO, l Oral Tablet 20:13: Q12H, X 10 [place] [Biaxin] 00 day, # 20 tab, 0 Refill(s), [id number] {2018-09 Yes See Memoria (Methylpred 1-26 Instructio l nisolone 4 20:13: ns, PO, Herm sienna MG Oral 00 Take by Tablet mouth as [Medrol]) } directed Pack on label., [Medrol X 6 day, # Dosepak] 1 Pack, 0 Refill(s), [id number] 2018-09 Yes 500 mg = 1 Memoria roberto 500 MG 1-26 tab, PO, l Oral Tablet 20:13: Q12H, X 10 [place] [Biaxin] 00 day, # 20 tab, 0 Refill(s), [id number] {2018-09 Yes See Memoria (Methylpred 1-26 Instructio l nisolone 4 20:13: ns, PO, Herm sienna MG Oral 00 Take by Tablet mouth as [Medrol]) } directed Pack on label., [Medrol X 6 day, # Dosepak] 1 Pack, 0 Refill(s), [facility] 2018-09 Yes 500 mg = 1 Memoria roberto 500 MG 1-26 tab, PO, l Oral Tablet 20:13: Q12H, X 10 [place] [Biaxin] 00 day, # 20 tab, 0 Refill(s), [id number] {2018-09 Yes See Memoria (Methylpred 1-26 Instructio l nisolone 4 20:13: ns, PO, Herm sienna MG Oral 00 Take by Tablet mouth as [Medrol]) } directed Pack on label., [Medrol X 6 day, # Dosepak] 1 Pack, 0 Refill(s), [facility] [place] [address] 2018-09 Yes 500 mg = 1 Memoria roberto 500 MG 1-26 tab, PO, l Oral Tablet 20:13: Q12H, X 10 [place] [Biaxin] 00 day, # 20 tab, 0 Refill(s), [facility] {2018-09 Yes See Memoria (Methylpred 1-26 Instructio l nisolone 4 20:13: ns, PO, Herm sienna MG Oral 00 Take by Tablet mouth as [Medrol]) } directed Pack on label., [Medrol X 6 day, # Dosepak] 1 Pack, 0 Refill(s), [facility] [place] [address] 2018-09 Yes 500 mg = 1 Memoria roberto 500 MG 1-26 tab, PO, l Oral Tablet 20:13: Q12H, X 10 [place] [Biaxin] 00 day, # 20 tab, 0 Refill(s), [facility] {2018-09 Yes See Memoria (Methylpred 1-26 Instructio l nisolone 4 20:13: ns, PO, Herm sienna MG Oral 00 Take by Tablet mouth as [Medrol]) } directed Pack on label., [Medrol X 6 day, # Dosepak] 1 Pack, 0 Refill(s), [facility] [place] [address] 2018-09 Yes 500 mg = 1 Memoria roberto 500 MG 1-26 tab, PO, l Oral Tablet 20:13: Q12H, X 10 [place] [Biaxin] 00 day, # 20 tab, 0 Refill(s), [id number] {2018-09 Yes See Memoria (Methylpred 1-26 Instructio l nisolone 4 20:13: ns, PO, Herm sienna MG Oral 00 Take by Tablet mouth as [Medrol]) } directed Pack on label., [Medrol X 6 day, # Dosepak] 1 Pack, 0 Refill(s), [facility] Yes 500 mg = 1 Memoria roberto 500 MG 1-26 tab, PO, l Oral Tablet 20:13: Q12H, X 10 [place] [Biaxin] 00 day, # 20 tab, 0 Refill(s), Pharmacy: [facility] #[id number] {2018-09 Yes See Memoria (Methylpred 1-26 Instructio l nisolone 4 20:13: ns, PO, Herm sienna MG Oral 00 Take by Tablet mouth as [Medrol]) } directed Pack on label., [Medrol X 6 day, # Dosepak] 1 Pack, 0 Refill(s), Pharmacy: [facility] #7120 Hydrochlor 2018-09 Yes See Memori a thiazide 25 0-21 Instructio l MG Oral 18:04: ns, 1 tab Ariana nn Tablet 00 PO daily x 3 days PRN swelling, # 30 tab, 2 Refill(s), Pharmacy: [facility] #7120 [facility] 2018-09 Yes See Memori a thiazide 25 0-21 Instructio l MG Oral 18:04: ns, 1 tab Ariana nn Tablet 00 PO daily x 3 days PRN swelling, # 30 tab, 2 Refill(s), Pharmacy: [facility] #7120 Hydrochlor 2018-09 Yes See Memori a thiazide 25 0-21 Instructio l MG Oral 18:04: ns, 1 tab Ariana nn Tablet 00 PO daily x 3 days PRN swelling, # 30 tab, 2 Refill(s), Pharmacy: [facility] #7120 Hydrochlor 2018-09 Yes See Memori a thiazide 25 0-21 Instructio l MG Oral 18:04: ns, 1 tab Ariana nn Tablet 00 PO daily x 3 days PRN swelling, # 30 tab, 2 Refill(s), Pharmacy: [facility] #7120 Hydrochloro 2018-09 Yes See Memori a thiazide 25 0-21 Instructio l MG Oral 18:04: ns, 1 tab Ariana nn Tablet 00 PO daily x 3 days PRN swelling, # 30 tab, 2 Refill(s), Pharmacy: [facility] #7120 Hydrochloro 2019- Yes See Memori a thiazide 25 0-21 Instructio l MG Oral 18:04: ns, 1 tab Ariana nn Tablet 00 PO daily x 3 days PRN swelling, # 30 tab, 2 Refill(s), Pharmacy: [facility] #7120 [facility] 2019 Yes See Memori a thiazide 25 0-21 Instructio l MG Oral 18:04: ns, 1 tab Ariana nn Tablet 00 PO daily x 3 days PRN swelling, # 30 tab, 2 Refill(s), [facility] 2019 Yes See Memori a thiazide 25 0-21 Instructio l MG Oral 18:04: ns, 1 tab Ariana nn Tablet 00 PO daily x 3 days PRN swelling, # 30 tab, 2 Refill(s), [facility] 2019 Yes See Memori a thiazide 25 0-21 Instructio l MG Oral 18:04: ns, 1 tab Ariana nn Tablet 00 PO daily x 3 days PRN swelling, # 30 tab, 2 Refill(s), Pharmacy: [facility] #7120 [facility] 2019 Yes See Memori a thiazide 25 0-21 Instructio l MG Oral 18:04: ns, 1 tab Ariana nn Tablet 00 PO daily x 3 days PRN swelling, # 30 tab, 2 Refill(s), Pharmacy: [facility] #7120 [facility] 2019 Yes See Memori a thiazide 25 0-21 Instructio l MG Oral 18:04: ns, 1 tab Ariana nn Tablet 00 PO daily x 3 days PRN swelling, # 30 tab, 2 Refill(s), Pharmacy: [facility] #7120 [facility] 2019 Yes See Memori a thiazide 25 0-21 Instructio l MG Oral 18:04: ns, 1 tab Ariana nn Tablet 00 PO daily x 3 days PRN swelling, # 30 tab, 2 Refill(s), Pharmacy: [facility] #7120 Hydrochlor 2019- Yes See Memori a thiazide 25 0-21 Instructio l MG Oral 18:04: ns, 1 tab Ariana nn Tablet 00 PO daily x 3 days PRN swelling, # 30 tab, 2 Refill(s), Pharmacy: [facility] #7120 [facility] 2019 Yes See Memori a thiazide 25 0-21 Instructio l MG Oral 18:04: ns, 1 tab Ariana nn Tablet 00 PO daily x 3 days PRN swelling, # 30 tab, 2 Refill(s), Pharmacy: [facility] #7120 Hydrochloro 2018-09 Yes See Memori a thiazide 25 0-21 Instructio l MG Oral 18:04: ns, 1 tab Ariana nn Tablet 00 PO daily x 3 days PRN swelling, # 30 tab, 2 Refill(s), [facility] olopatadine Yes 1 drp, Catrachito darlin 1 MG/ML 9 BOTH EYES, l Ophthalmic 20:44: BID, X 10 He rmann Solution 00 day, # 5 [Patanol] ml, 0 Refill(s), [facility] Hydrochloro Yes See Memori a thiazide 25 9-23 Instructio l MG Oral 20:44: ns, 1 tab Ariana nn Tablet 00 PO daily x 3 days PRN swelling, # 30 tab, 2 Refill(s), Pharmacy: [facility] #7120 olopatadine Yes 1 drp, Catrachito darlin 1 MG/ML 06-04 BOTH EYES, l Ophthalmic 20:44: BID, X 10 He rmann Solution 00 day, # 5 [Patanol] ml, 0 Refill(s), Pharmacy: [facility] #7120 Hydrochloro Yes See Memori a thiazide 25 9-23 Instructio l MG Oral 20:44: ns, 1 tab Ariana nn Tablet 00 PO daily x 3 days PRN swelling, # 30 tab, 2 Refill(s), Pharmacy: [facility] #7120 olopatadine Yes 1 drp, Catrachito darlin 1 MG/ML 06-04 BOTH EYES, l Ophthalmic 20:44: BID, X 10 He rmann Solution 00 day, # 5 [Patanol] ml, 0 Refill(s), Pharmacy: [facility] #7120 Hydrochloro Yes See Memori a thiazide 25 9-23 Instructio l MG Oral 20:44: ns, 1 tab Ariana nn Tablet 00 PO daily x 3 days PRN swelling, # 30 tab, 2 Refill(s), Pharmacy: [facility] #7120 olopatadine Yes 1 drp, Catrachito darlin 1 MG/ML - BOTH EYES, l Ophthalmic 20:44: BID, X 10 He rmann Solution 00 day, # 5 [Patanol] ml, 0 Refill(s), Pharmacy: [facility] #7120 Hydrochloro Yes See Memori a thiazide 25 9-23 Instructio l MG Oral 20:44: ns, 1 tab Ariana nn Tablet 00 PO daily x 3 days PRN swelling, # 30 tab, 2 Refill(s), Pharmacy: [facility] #7120 olopatadine Yes 1 drp, Catrachito darlin 1 MG/ML 06-04 BOTH EYES, l Ophthalmic 20:44: BID, X 10 He rmann Solution 00 day, # 5 [Patanol] ml, 0 Refill(s), Pharmacy: [facility] #7120 Hydrochloro Yes See Memori a thiazide 25 9-23 Instructio l MG Oral 20:44: ns, 1 tab Ariana nn Tablet 00 PO daily x 3 days PRN swelling, # 30 tab, 2 Refill(s), Pharmacy: [facility] #7120 olopatadine Yes 1 drp, Catrachito darlin 1 MG/ML 06-04 BOTH EYES, l Ophthalmic 20:44: BID, X 10 He rmann Solution 00 day, # 5 [Patanol] ml, 0 Refill(s), Pharmacy: [facility] #7120 Hydrochloro Yes See Memori a thiazide 25 -23 Instructio l MG Oral 20:44: ns, 1 tab Ariana nn Tablet 00 PO daily x 3 days PRN swelling, # 30 tab, 2 Refill(s), Pharmacy: [facility] #7120 olopatadine Yes 1 drp, Catrachito darlin 1 MG/ML 06-04 BOTH EYES, l Ophthalmic 20:44: BID, X 10 He rmann Solution 00 day, # 5 [Patanol] ml, 0 Refill(s), Pharmacy: [facility] #7120 Hydrochloro 2018- Yes See Memori a thiazide 25 9-23 Instructio l MG Oral 20:44: ns, 1 tab Ariana nn Tablet 00 PO daily x 3 days PRN swelling, # 30 tab, 2 Refill(s), Pharmacy: [facility] #7120 olopatadine Yes 1 drp, Catrachito darlin 1 MG/ML 9-23 BOTH EYES, l Ophthalmic 20:44: BID, X 10 He rmann Solution 00 day, # 5 [Patanol] ml, 0 Refill(s), Pharmacy: [facility] #7120 Hydrochloro Yes See Memori a thiazide 25 - Instructio l MG Oral 20:44: ns, 1 tab Ariana nn Tablet 00 PO daily x 3 days PRN swelling, # 30 tab, 2 Refill(s), Pharmacy: [facility] #7120 olopatadine Yes 1 drp, Catrachito darlin 1 MG/ML 06-04 BOTH EYES, l Ophthalmic 20:44: BID, X 10 He rmann Solution 00 day, # 5 [Patanol] ml, 0 Refill(s), Pharmacy: [facility] #7120 Hydrochloro Yes See Memori a thiazide 25 06-04 Instructio l MG Oral 20:44: ns, 1 tab Ariana nn Tablet 00 PO daily x 3 days PRN swelling, # 30 tab, 2 Refill(s), Pharmacy: [facility] #7120 olopatadine Yes 1 drp, Catrachito darlin 1 MG/ML 06-04 BOTH EYES, l Ophthalmic 20:44: BID, X 10 He rmann Solution 00 day, # 5 [Patanol] ml, 0 Refill(s), Pharmacy: [facility] #7120 Hydrochloro Yes See Memori a thiazide 25 06-04 Instructio l MG Oral 20:44: ns, 1 tab Ariana nn Tablet 00 PO daily x 3 days PRN swelling, # 30 tab, 2 Refill(s), Pharmacy: [facility] #7120 olopatadine Yes 1 drp, Catrachito darlin 1 MG/ML 06-04 BOTH EYES, l Ophthalmic 20:44: BID, X 10 He rmann Solution 00 day, # 5 [Patanol] ml, 0 Refill(s), Pharmacy: [facility] #7120 Hydrochloro Yes See Memori a thiazide 25 - Instructio l MG Oral 20:44: ns, 1 tab Ariana nn Tablet 00 PO daily x 3 days PRN swelling, # 30 tab, 2 Refill(s), Pharmacy: [facility] #7120 olopatadine Yes 1 drp, Catrachito darlin 1 MG/ML 06-04 BOTH EYES, l Ophthalmic 20:44: BID, X 10 He rmann Solution 00 day, # 5 [Patanol] ml, 0 Refill(s), Pharmacy: [facility] #7120 Hydrochloro Yes See Memori a thiazide 25 9-23 Instructio l MG Oral 20:44: ns, 1 tab Ariana nn Tablet 00 PO daily x 3 days PRN swelling, # 30 tab, 2 Refill(s), Pharmacy: [facility] #7120 olopatadine Yes 1 drp, Catrachito darlin 1 MG/ML 06-04 BOTH EYES, l Ophthalmic 20:44: BID, X 10 He rmann Solution 00 day, # 5 [Patanol] ml, 0 Refill(s), Pharmacy: [facility] #7120 Hydrochloro Yes See Memori a thiazide 25 9-23 Instructio l MG Oral 20:44: ns, 1 tab Ariana nn Tablet 00 PO daily x 3 days PRN swelling, # 30 tab, 2 Refill(s), Pharmacy: [facility] #7120 olopatadine Yes 1 drp, Catrachito darlin 1 MG/ML 06-04 BOTH EYES, l Ophthalmic 20:44: BID, X 10 He rmann Solution 00 day, # 5 [Patanol] ml, 0 Refill(s), Pharmacy: [facility] #7120 Hydrochloro Yes See Memori a thiazide 25 9-23 Instructio l MG Oral 20:44: ns, 1 tab Ariana nn Tablet 00 PO daily x 3 days PRN swelling, # 30 tab, 2 Refill(s), Pharmacy: [facility] #7120 olopatadine Yes 1 drp, Catrachito darlin 1 MG/ML 06-04 BOTH EYES, l Ophthalmic 20:44: BID, X 10 He rmann Solution 00 day, # 5 [Patanol] ml, 0 Refill(s), Pharmacy: [facility] #7120 Hydrochloro Yes See Memori a thiazide 25 9-23 Instructio l MG Oral 20:44: ns, 1 tab Ariana nn Tablet 00 PO daily x 3 days PRN swelling, # 30 tab, 2 Refill(s), Pharmacy: [facility] #7120 tizanidine 2019-0 Yes 4 mg = 1 Mem oria 4 mg oral 6-24 tab, PO, l tablet 19:44: Bedtime, [place] 00 PRN muscle spasm, # 30 tab, 0 Refill(s), [id number] { Yes See Memoria (Methylpred 6-24 Instructio l nisolone 4 19:44: ns, PO, as H ermann MG Oral 00 directed Tablet on package [Medrol]) } labeling. Pack Take with [Medrol food, # 1 Dosepak] Pack, 0 Refill(s), [facility]: [facility] #7120 tizanidine 2019-0 Yes 4 mg = 1 Mem oria 4 mg oral 6-24 tab, PO, l tablet 19:44: Bedtime, [place] 00 PRN muscle spasm, # 30 tab, 0 Refill(s), Pharmacy: [facility] #7120 { Yes See Memoria (Methylpred 6-24 Instructio l nisolone 4 19:44: ns, PO, as H ermann MG Oral 00 directed Tablet on package [Medrol]) } labeling. Pack Take with [Medrol food, # 1 Dosepak] Pack, 0 Refill(s), Pharmacy: [facility] #7120 tizanidine 2019-0 Yes 4 mg = 1 Mem oria 4 mg oral 6-24 tab, PO, l tablet 19:44: Bedtime, [place] 00 PRN muscle spasm, # 30 tab, 0 Refill(s), Pharmacy: [facility] #7120 { Yes See Memoria (Methylpred 6-24 Instructio l nisolone 4 19:44: ns, PO, as H ermann MG Oral 00 directed Tablet on package [Medrol]) } labeling. Pack Take with [Medrol food, # 1 Dosepak] Pack, 0 Refill(s), Pharmacy: [facility] #7120 tizanidine 2019-0 Yes 4 mg = 1 Mem oria 4 mg oral 6-24 tab, PO, l tablet 19:44: Bedtime, [place] 00 PRN muscle spasm, # 30 tab, 0 Refill(s), Pharmacy: [facility] #7120 { Yes See Memoria (Methylpred 6-24 Instructio l nisolone 4 19:44: ns, PO, as H ermann MG Oral 00 directed Tablet on package [Medrol]) } labeling. Pack Take with [Medrol food, # 1 Dosepak] Pack, 0 Refill(s), Pharmacy: [facility] #7120 tizanidine 2019-0 Yes 4 mg = 1 Mem oria 4 mg oral 6-24 tab, PO, l tablet 19:44: Bedtime, [place] 00 PRN muscle spasm, # 30 tab, 0 Refill(s), Pharmacy: [facility] #7120 { Yes See Memoria (Methylpred 6-24 Instructio l nisolone 4 19:44: ns, PO, as H ermann MG Oral 00 directed Tablet on package [Medrol]) } labeling. Pack Take with [Medrol food, # 1 Dosepak] Pack, 0 Refill(s), Pharmacy: [facility] #7120 tizanidine 2018- Yes 4 mg = 1 Mem oria 4 mg oral 6-24 tab, PO, l tablet 19:44: Bedtime, [place] 00 PRN muscle spasm, # 30 tab, 0 Refill(s), Pharmacy: [facility] #7120 { Yes See Memoria (Methylpred 6-24 Instructio l nisolone 4 19:44: ns, PO, as H ermann MG Oral 00 directed Tablet on package [Medrol]) } labeling. Pack Take with [Medrol food, # 1 Dosepak] Pack, 0 Refill(s), Pharmacy: [facility] #7120 tizanidine 2018-0 Yes 4 mg = 1 Mem oria 4 mg oral 6-24 tab, PO, l tablet 19:44: Bedtime, [place] 00 PRN muscle spasm, # 30 tab, 0 Refill(s), Pharmacy: [facility] #7120 { Yes See Memoria (Methylpred 6-24 Instructio l nisolone 4 19:44: ns, PO, as H ermann MG Oral 00 directed Tablet on package [Medrol]) } labeling. Pack Take with [Medrol food, # 1 Dosepak] Pack, 0 Refill(s), Pharmacy: [facility] #7120 tizanidine 2019-0 Yes 4 mg = 1 Mem oria 4 mg oral 6-24 tab, PO, l tablet 19:44: Bedtime, [place] 00 PRN muscle spasm, # 30 tab, 0 Refill(s), Pharmacy: [facility] #7120 { Yes See Memoria (Methylpred 6-24 Instructio l nisolone 4 19:44: ns, PO, as H ermann MG Oral 00 directed Tablet on package [Medrol]) } labeling. Pack Take with [Medrol food, # 1 Dosepak] Pack, 0 Refill(s), Pharmacy: [facility] #7120 tizanidine 2019-0 Yes 4 mg = 1 Mem oria 4 mg oral 6-24 tab, PO, l tablet 19:44: Bedtime, [place] 00 PRN muscle spasm, # 30 tab, 0 Refill(s), Pharmacy: [facility] #7120 { Yes See Memoria (Methylpred 6-24 Instructio l nisolone 4 19:44: ns, PO, as H ermann MG Oral 00 directed Tablet on package [Medrol]) } labeling. Pack Take with [Medrol food, # 1 Dosepak] Pack, 0 Refill(s), Pharmacy: [facility] #7120 tizanidine 2019-0 Yes 4 mg = 1 Mem oria 4 mg oral 6-24 tab, PO, l tablet 19:44: Bedtime, [place] 00 PRN muscle spasm, # 30 tab, 0 Refill(s), Pharmacy: [facility] #7120 { Yes See Memoria (Methylpred 6-24 Instructio l nisolone 4 19:44: ns, PO, as H ermann MG Oral 00 directed Tablet on package [Medrol]) } labeling. Pack Take with [Medrol food, # 1 Dosepak] Pack, 0 Refill(s), Pharmacy: [facility] #7120 tizanidine 2019-0 Yes 4 mg = 1 Mem oria 4 mg oral 6-24 tab, PO, l tablet 19:44: Bedtime, [place] 00 PRN muscle spasm, # 30 tab, 0 Refill(s), Pharmacy: [facility] #7120 { Yes See Memoria (Methylpred 6-24 Instructio l nisolone 4 19:44: ns, PO, as H ermann MG Oral 00 directed Tablet on package [Medrol]) } labeling. Pack Take with [Medrol food, # 1 Dosepak] Pack, 0 Refill(s), Pharmacy: [facility] #7120 tizanidine 2019-0 Yes 4 mg = 1 Mem oria 4 mg oral 6-24 tab, PO, l tablet 19:44: Bedtime, [place] 00 PRN muscle spasm, # 30 tab, 0 Refill(s), Pharmacy: [facility] #7120 { Yes See Memoria (Methylpred 6-24 Instructio l nisolone 4 19:44: ns, PO, as H ermann MG Oral 00 directed Tablet on package [Medrol]) } labeling. Pack Take with [Medrol food, # 1 Dosepak] Pack, 0 Refill(s), Pharmacy: [facility] #7120 tizanidine 2019-0 Yes 4 mg = 1 Mem oria 4 mg oral 6-24 tab, PO, l tablet 19:44: Bedtime, [place] 00 PRN muscle spasm, # 30 tab, 0 Refill(s), Pharmacy: [facility] #7120 { Yes See Memoria (Methylpred 6-24 Instructio l nisolone 4 19:44: ns, PO, as H ermann MG Oral 00 directed Tablet on package [Medrol]) } labeling. Pack Take with [Medrol food, # 1 Dosepak] Pack, 0 Refill(s), Pharmacy: [facility] #7120 tizanidine 2019-0 Yes 4 mg = 1 Mem oria 4 mg oral 6-24 tab, PO, l tablet 19:44: Bedtime, [place] 00 PRN muscle spasm, # 30 tab, 0 Refill(s), Pharmacy: [facility] #7120 { Yes See Memoria (Methylpred 6-24 Instructio l nisolone 4 19:44: ns, PO, as H ermann MG Oral 00 directed Tablet on package [Medrol]) } labeling. Pack Take with [Medrol food, # 1 Dosepak] Pack, 0 Refill(s), Pharmacy: [facility] #7120 tizanidine 2019-0 Yes 4 mg = 1 Mem oria 4 mg oral 6-24 tab, PO, l tablet 19:44: Bedtime, [place] 00 PRN muscle spasm, # 30 tab, 0 Refill(s), Pharmacy: [facility] #[id number] { Yes See Memoria (Methylpred 6-24 Instructio l nisolone 4 19:44: ns, PO, as H ermann MG Oral 00 directed Tablet on package [Medrol]) } labeling. Pack Take with [Medrol food, # 1 Dosepak] Pack, 0 Refill(s), Pharmacy: [facility] #7120 valacyclovi Yes 500 mg = 1 Memoria r 500 MG 5-30 tab, PO, l Oral Tablet 18:52: Daily, # He rmann [Valtrex] 00 90 tab, 3 Refill(s), Pharmacy: [facility] #7120 valacyclovi Yes 500 mg = 1 Memoria r 500 MG 5-30 tab, PO, l Oral Tablet 18:52: Daily, # He rmann [Valtrex] 00 90 tab, 3 Refill(s), Pharmacy: [facility] #7120 valacyclovi Yes 500 mg = 1 Memoria r 500 MG 5-30 tab, PO, l Oral Tablet 18:52: Daily, # He rmann [Valtrex] 00 90 tab, 3 Refill(s), Pharmacy: [facility] #7120 valacyclovi Yes 500 mg = 1 Memoria r 500 MG 5-30 tab, PO, l Oral Tablet 18:52: Daily, # He rmann [Valtrex] 00 90 tab, 3 Refill(s), Pharmacy: [facility] #7120 valacyclovi Yes 500 mg = 1 Memoria r 500 MG 5-30 tab, PO, l Oral Tablet 18:52: Daily, # He rmann [Valtrex] 00 90 tab, 3 Refill(s), Pharmacy: [facility] #7120 valacyclovi Yes 500 mg = 1 Memoria r 500 MG 5-30 tab, PO, l Oral Tablet 18:52: Daily, # He rmann [Valtrex] 00 90 tab, 3 Refill(s), Pharmacy: [facility] #7120 valacyclovi 2019-0 Yes 500 mg = 1 Memoria r 500 MG 5-30 tab, PO, l Oral Tablet 18:52: Daily, # Jarad rmann [Valtrex] 00 90 tab, 3 Refill(s), [facility] valacyclovi 2019-0 Yes 500 mg = 1 Memoria r 500 MG 5-30 tab, PO, l Oral Tablet 18:52: Daily, # Jarad rmann [Valtrex] 00 90 tab, 3 Refill(s), Pharmacy: [facility] #7120 valacyclovi 2019-0 Yes 500 mg = 1 Memoria r 500 MG 5-30 tab, PO, l Oral Tablet 18:52: Daily, # Jarad rmann [Valtrex] 00 90 tab, 3 Refill(s), [id number] valacyclovi 2019-0 Yes 500 mg = 1 Memoria r 500 MG 5-30 tab, PO, l Oral Tablet 18:52: Daily, # Jarad rmann [Valtrex] 00 90 tab, 3 Refill(s), [id number] valacyclovi 2019-0 Yes 500 mg = 1 Memoria r 500 MG 5-30 tab, PO, l Oral Tablet 18:52: Daily, # Jarad rmann [Valtrex] 00 90 tab, 3 Refill(s), [id number] valacyclovi 2019-0 Yes 500 mg = 1 Memoria r 500 MG 5-30 tab, PO, l Oral Tablet 18:52: Daily, # Jarad rmann [Valtrex] 00 90 tab, 3 Refill(s), [id number] valacyclovi 2019-0 Yes 500 mg = 1 Memoria r 500 MG 5-30 tab, PO, l Oral Tablet 18:52: Daily, # Jarad rmann [Valtrex] 00 90 tab, 3 Refill(s), [id number] valacyclovi 2019-0 Yes 500 mg = 1 Memoria r 500 MG 5-30 tab, PO, l Oral Tablet 18:52: Daily, # Jarad rmann [Valtrex] 00 90 tab, 3 Refill(s), [id number] valacyclovi 2019-0 Yes 500 mg = 1 Memoria r 500 MG 5-30 tab, PO, l Oral Tablet 18:52: Daily, # He rmann [Valtrex] 00 90 tab, 3 Refill(s), Pharmacy: [facility] #[id number] pantoprazol 2019-0 Yes = 1 tab, Me moria e 40 mg 5-30 PO, Daily, l oral 18:46: # 90 tab, [place] enteric 19 3 coated Refill(s), tablet [id number] pantoprazol 2019-0 Yes = 1 tab, Me moria e 40 mg 5-30 PO, Daily, l oral 18:46: # 90 tab, [place] enteric 19 3 coated Refill(s), tablet Pharmacy: [facility] #[id number] pantoprazol 2019-0 Yes = 1 tab, Me moria e 40 mg 5-30 PO, Daily, l oral 18:46: # 90 tab, [place] enteric 19 3 coated Refill(s), tablet [id number] pantoprazol 2019-0 Yes = 1 tab, Me moria e 40 mg 5-30 PO, Daily, l oral 18:46: # 90 tab, [place] [facility] 19 3 coated Refill(s), tablet Pharmacy: [facility] #[id number] pantoprazol 2019-0 Yes = 1 tab, Me moria e 40 mg 5-30 PO, Daily, l oral 18:46: # 90 tab, [place] [facility] 19 3 coated Refill(s), tablet Pharmacy: [facility] #[id number] pantoprazol 2019-0 Yes = 1 tab, Me moria e 40 mg 5-30 PO, Daily, l oral 18:46: # 90 tab, [place] [facility] 19 3 coated Refill(s), tablet Pharmacy: [facility] #[id number] pantoprazol 2019-0 Yes = 1 tab, Me mor[place] e 40 mg 5-30 PO, Daily, l oral 18:46: # 90 tab, [place] enter[facility] 19 3 coated Refill(s), tablet Pharmacy: [facility] #[id number] pantoprazol 2019-0 Yes = 1 tab, Me mor[place] e 40 mg 5-30 PO, Daily, l oral 18:46: # 90 tab, [place] enteric 19 3 coated Refill(s), tablet Pharmacy: [facility] #[id number] pantoprazol 2019-0 Yes = 1 tab, Me moria e 40 mg 5-30 PO, Daily, l oral 18:46: # 90 tab, [place] enteric 19 3 coated Refill(s), tablet Pharmacy: [facility] #[id number] pantoprazol 2019-0 Yes = 1 tab, Me moria e 40 mg 5-30 PO, Daily, l oral 18:46: # 90 tab, [place] [facility] 19 3 coated Refill(s), tablet Pharmacy: [facility] #[id number] pantoprazol 2019-0 Yes = 1 tab, Me mor[place] e 40 mg 5-30 PO, Daily, l oral 18:46: # 90 tab, [place] enter[facility] 19 3 coated Refill(s), tablet Pharmacy: [facility] #71 pantoprazol 2019-0 Yes = 1 tab, Me mor[place] e 40 mg 5-30 PO, Daily, l oral 18:46: # 90 tab, [place] [facility] 19 3 coated Refill(s), tablet Pharmacy: [facility] #[id number] pantoprazol 2019-0 Yes = 1 tab, Me mor[place] e 40 mg 5-30 PO, Daily, l oral 18:46: # 90 tab, [place] enter[facility] 19 3 coated Refill(s), tablet Pharmacy: [facility] #[id number] pantoprazol 2019-0 Yes = 1 tab, Me mor[place] e 40 mg 5-30 PO, Daily, l oral 18:46: # 90 tab, [place] [facility] 19 3 coated Refill(s), tablet Pharmacy: [facility] #[id number] pantoprazol 2019-0 Yes = 1 tab, Me mor[place] e 40 mg 5-30 PO, Daily, l oral 18:46: # 90 tab, [place] [facility] 19 3 coated Refill(s), tablet Pharmacy: [facility] #[id number] albuterol 2019-0 Yes 2 puff, Memor ia 90 mcg/inh 5-30 INHALATION l inhalation 18:46: , Q4H, PRN H [place] aerosol 18 for wheezing, # 9 gm, 2 Refill(s), [id number] albuterol 2019-0 Yes 2 puff, Memor ia 90 mcg/inh 5-30 INHALATION l inhalation 18:46: , Q4H, PRN H ermann aerosol 18 for wheezing, # 9 gm, 2 Refill(s), [facility]: [facility] #[id number] albuterol 2019-0 Yes 2 puff, Memor ia 90 mcg/inh 5-30 INHALATION l inhalation 18:46: , Q4H, PRN H ermann aerosol 18 for wheezing, # 9 gm, 2 Refill(s), [id number] albuterol 2019-0 Yes 2 puff, Memor ia 90 mcg/inh 5-30 INHALATION l inhalation 18:46: , Q4H, PRN H ermann aerosol 18 for wheezing, # 9 gm, 2 Refill(s), [id number] albuterol 2019-0 Yes 2 puff, Memor ia 90 mcg/inh 5-30 INHALATION l inhalation 18:46: , Q4H, PRN H ermann aerosol 18 for wheezing, # 9 gm, 2 Refill(s), Pharmacy: [facility] #[id number] albuterol 2018-0 Yes 2 puff, Memor ia 90 mcg/inh 5-30 INHALATION l inhalation 18:46: , Q4H, PRN H ermann aerosol 18 for wheezing, # 9 gm, 2 Refill(s), Pharmacy: [facility] #[id number] albuterol 2018-0 Yes 2 puff, Memor ia 90 mcg/inh 5-30 INHALATION l inhalation 18:46: , Q4H, PRN H ermann aerosol 18 for wheezing, # 9 gm, 2 Refill(s), [facility]acy: [id number] albuterol 2018-0 Yes 2 puff, Memor ia 90 mcg/inh 5-30 INHALATION l inhalation 18:46: , Q4H, PRN H ermann aerosol 18 for wheezing, # 9 gm, 2 Refill(s), Pharmacy: [facility] #[id number] albuterol 2019-0 Yes 2 puff, Memor ia 90 mcg/inh 5-30 INHALATION l inhalation 18:46: , Q4H, PRN H ermann aerosol 18 for wheezing, # 9 gm, 2 Refill(s), Pharmacy: [facility] #[id number] albuterol 2018-0 Yes 2 puff, Memor ia 90 mcg/inh 5-30 INHALATION l inhalation 18:46: , Q4H, PRN H ermann aerosol 18 for wheezing, # 9 gm, 2 Refill(s), Pharmacy: [facility] #[id number] albuterol 2019-0 Yes 2 puff, Memor ia 90 mcg/inh 5-30 INHALATION l inhalation 18:46: , Q4H, PRN H ermann aerosol 18 for wheezing, # 9 gm, 2 Refill(s), Pharmacy: [facility] #71 albuterol 2019-0 Yes 2 puff, Memor ia 90 mcg/inh 5-30 INHALATION l inhalation 18:46: , Q4H, PRN H ermann aerosol 18 for wheezing, # 9 gm, 2 Refill(s), Pharmacy: [facility] #71 albuterol 2019-0 Yes 2 puff, Memor ia 90 mcg/inh 5-30 INHALATION l inhalation 18:46: , Q4H, PRN H ermann aerosol 18 for wheezing, # 9 gm, 2 Refill(s), [facility] albuterol 2018-0 Yes 2 puff, Memor ia 90 mcg/inh 5-30 INHALATION l inhalation 18:46: , Q4H, PRN H ermann aerosol 18 for wheezing, # 9 gm, 2 Refill(s), [facility] albuterol 2019-0 Yes 2 puff, Memor ia 90 mcg/inh 5-30 INHALATION l inhalation 18:46: , Q4H, PRN H ermann aerosol 18 for wheezing, # 9 gm, 2 Refill(s), Pharmacy: [facility] #[id number] pantoprazol 2019- Yes = 1 tab, [place] mor[place] e 40 mg 3-27 PO, Daily, l oral 23:14: # 30 tab, [place] [facility] 55 0 coated Refill(s), tablet Pharmacy: [facility] #71 pantoprazol 2019- Yes = 1 tab, [place] mor[place] e 40 mg 3-27 PO, Daily, l oral 23:14: # 30 tab, [place] [facility] 55 0 coated Refill(s), tablet Pharmacy: [facility] #71 pantoprazol 2018- Yes = 1 tab, [place] mor[place] e 40 mg 3-27 PO, Daily, l oral 23:14: # 30 tab, [place] enter[facility] 55 0 coated Refill(s), tablet Pharmacy: [facility] #71 pantoprazol 2018-0 Yes = 1 tab, Me mor[place] e 40 mg 3-27 PO, Daily, l oral 23:14: # 30 tab, [place] enter[facility] 55 0 coated Refill(s), tablet [id number] pantoprazol 2019-0 Yes = 1 tab, [place] mor[place] e 40 mg 3-27 PO, Daily, l oral 23:14: # 30 tab, [place] [facility] 55 0 coated Refill(s), tablet Pharmacy: [facility] #[id number] pantoprazol 2019-0 Yes = 1 tab, Me mor[place] e 40 mg 3-27 PO, Daily, l oral 23:14: # 30 tab, [place] [facility] 55 0 coated Refill(s), tablet [id number] pantoprazol 2019-0 Yes = 1 tab, Me mor[place] e 40 mg 3-27 PO, Daily, l oral 23:14: # 30 tab, [place] enteric 55 0 coated Refill(s), tablet [id number] pantoprazol 2019-0 Yes = 1 tab, Me mor[place] e 40 mg 3-27 PO, Daily, l oral 23:14: # 30 tab, [place] [facility] 55 0 coated Refill(s), tablet [id number] pantoprazol 2019-0 Yes = 1 tab, Me mor[place] e 40 mg 3-27 PO, Daily, l oral 23:14: # 30 tab, [place] [facility] 55 0 coated Refill(s), tablet [id number] pantoprazol 2019-0 Yes = 1 tab, Me mor[place] e 40 mg 3-27 PO, Daily, l oral 23:14: # 30 tab, [place] enteric 55 0 coated Refill(s), tablet [id number] pantoprazol 2019-0 Yes = 1 tab, Me mor[place] e 40 mg 3-27 PO, Daily, l oral 23:14: # 30 tab, [place] enteric 55 0 coated Refill(s), tablet [id number] pantoprazol 2019-0 Yes = 1 tab, Me mor[place] e 40 mg 3-27 PO, Daily, l oral 23:14: # 30 tab, [place] [facility] 55 0 coated Refill(s), tablet [id number] pantoprazol 2019-0 Yes = 1 tab, Me mor[place] e 40 mg 3-27 PO, Daily, l oral 23:14: # 30 tab, [place] enter[facility] 55 0 coated Refill(s), tablet [id number] pantoprazol 2018- Yes = 1 tab, [place] mor[place] e 40 mg 3-27 PO, Daily, l oral 23:14: # 30 tab, [place] [facility] 55 0 coated Refill(s), tablet Pharmacy: [facility] #[id number] pantoprazol 2018- Yes = 1 tab, Me moria e 40 mg 3-27 PO, Daily, l oral 23:14: # 30 tab, [place] enter[facility] 55 0 coated Refill(s), tablet [id number] pantoprazol 2017-09 No 40 mg = 1 M emoria e 40 MG 0-04 tab, PO, l Enteric 19:37: Daily, # [place] Coated 00 90 tab, 1 Tablet Refill(s), [Protonix] [id number] pantoprazol 2017-09 No 40 mg = 1 M emoria e 40 MG 0-04 tab, PO, l Enteric 19:37: Daily, # [place] Coated 00 90 tab, 1 Tablet Refill(s), [Protonix] [id number] pantoprazol 2017-09 No 40 mg = 1 M emoria e 40 MG 0-04 tab, PO, l Enteric 19:37: Daily, # [place] n Coated 00 90 tab, 1 Tablet Refill(s), [Protonix] [id number] pantoprazol 2017-09 No 40 mg = 1 M emoria e 40 MG 0-04 tab, PO, l Enteric 19:37: Daily, # [place] n Coated 00 90 tab, 1 Tablet Refill(s), [Protonix] [id number] pantoprazol 2017-09 No 40 mg = 1 M emoria e 40 MG 0-04 tab, PO, l Enteric 19:37: Daily, # [place] Coated 00 90 tab, 1 Tablet Refill(s), [Protonix] [id number] pantoprazol 2017-09 No 40 mg = 1 M emoria e 40 MG 0-04 tab, PO, l Enteric 19:37: Daily, # [place] n Coated 00 90 tab, 1 Tablet Refill(s), [Protonix] [id number] pantoprazol 2018 No 40 mg = 1 M emoria e 40 MG 0-04 tab, PO, l Enteric 19:37: Daily, # [place] n Coated 00 90 tab, 1 Tablet Refill(s), [Protonix] [id number] pantoprazol 2018- No 40 mg = 1 M emoria e 40 MG 0-04 tab, PO, l Enteric 19:37: Daily, # [place] Coated 00 90 tab, 1 Tablet Refill(s), [Protonix] [id number] pantoprazol 2017-09 No 40 mg = 1 M emoria e 40 MG 0-04 tab, PO, l Enteric 19:37: Daily, # [place] Coated 00 90 tab, 1 Tablet Refill(s), [Protonix] [id number] pantoprazol 2017-09 No 40 mg = 1 M emoria e 40 MG 0-04 tab, PO, l Enteric 19:37: Daily, # [place] Coated 00 90 tab, 1 Tablet Refill(s), [Protonix] [id number] pantoprazol 2017-09 No 40 mg = 1 M emoria e 40 MG 0-04 tab, PO, l Enteric 19:37: Daily, # [place] Coated 00 90 tab, 1 Tablet Refill(s), [Protonix] [id number] pantoprazol 2018 No 40 mg = 1 M emoria e 40 MG 0-04 tab, PO, l Enteric 19:37: Daily, # [place] Coated 00 90 tab, 1 Tablet Refill(s), [Protonix] [id number] pantoprazol 2017-09 No 40 mg = 1 M emoria e 40 MG 0-04 tab, PO, l Enteric 19:37: Daily, # [place] Coated 00 90 tab, 1 Tablet Refill(s), [Protonix] [id number] pantoprazol 2018- No 40 mg = 1 M emoria e 40 MG 0-04 tab, PO, l Enteric 19:37: Daily, # [place] Coated 90 tab, 1 Tablet Refill(s), [Protonix] [id number] pantoprazol 2018- No 40 mg = 1 M emoria e 40 MG 0-04 tab, PO, l Enteric 19:37: Daily, # [place] n Coated 90 tab, 1 Tablet Refill(s), [Protonix] Pharmacy: [facility] #7120 Ciprofloxa 2018-0 Yes 4 drp, Catrachito darlin in 3 MG/ML 6-25 LEFT EAR, l / 16:38: BID, X 7 [place] Dexamethaso 00 day, # 1 ne 1 MG/ML btl, 0 Otic Refill(s), Suspension Pharmacy: [Ciprodex] [facility] #7120 Ciprofloxac 2017-0 Yes 4 drp, Catrachito darlin in 3 MG/ML 6-25 LEFT EAR, l / 16:38: BID, X 7 [place] Dexamethaso 00 day, # 1 ne 1 MG/ML btl, 0 Otic Refill(s), Suspension Pharmacy: [Ciprodex] [facility] #7120 Ciprofloxac 2017-0 Yes 4 drp, Catrachito darlin in 3 MG/ML 6-25 LEFT EAR, l / 16:38: BID, X 7 [place] Dexamethaso 00 day, # 1 ne 1 MG/ML btl, 0 Otic Refill(s), Suspension Pharmacy: [Ciprodex] [facility] #7120 Ciprofloxac 2017-0 Yes 4 drp, Catrachito darlin in 3 MG/ML 6-25 LEFT EAR, l / 16:38: BID, X 7 [place] Dexamethaso 00 day, # 1 ne 1 MG/ML btl, 0 Otic Refill(s), Suspension Pharmacy: [Ciprodex] [facility] #7120 Ciprofloxac 2017-0 Yes 4 drp, Catrachito darlin in 3 MG/ML 6-25 LEFT EAR, l / 16:38: BID, X 7 [place] Dexamethaso 00 day, # 1 ne 1 MG/ML btl, 0 Otic Refill(s), Suspension Pharmacy: [Ciprodex] [facility] #7120 Ciprofloxac 2018-0 Yes 4 drp, Catrachito darlin in 3 MG/ML 6-25 LEFT EAR, l 16:38: BID, X 7 [place] Dexamethaso 00 day, # 1 ne 1 MG/ML btl, 0 Otic Refill(s), Suspension [facility]: [facility]] [id number] Ciprofloxac 2017-0 Yes 4 drp, Catrachito darlin in 3 MG/ML 6-25 LEFT EAR, l 16:38: BID, X 7 [place] Dexamethaso 00 day, # 1 ne 1 MG/ML btl, 0 Otic Refill(s), Suspension Pharmacy: [C[facility]] [id number] Ciprofloxac 2017-0 Yes 4 drp, Catrachito darlin in 3 MG/ML 6-25 LEFT EAR, l 16:38: BID, X 7 [place] Dexamethaso 00 day, # 1 ne 1 MG/ML btl, 0 Otic Refill(s), Suspension Pharmacy: [Cipro[facility]] [id number] Ciprofloxac 2017-0 Yes 4 drp, Catrachito darlin in 3 MG/ML 6-25 LEFT EAR, l 16:38: BID, X 7 [place] Dexamethaso 00 day, # 1 ne 1 [...] EAR, l / 16:38: BID, X 7 [place] Dexamethaso 00 day, # 1 ne 1 MG/ML btl, 0 Otic Refill(s), Suspension Pharmacy: [Ciprodex] [facility] #7120 Ciprofloxac 2017- Yes 4 drp, Catrachito darlin in 3 MG/ML 6-25 LEFT EAR, l / 16:38: BID, X 7 [place] Dexamethaso 00 day, # 1 ne 1 MG/ML btl, 0 Otic Refill(s), Suspension Pharmacy: [Ciprodex] [facility] #7120 Ciprofloxac Yes 4 drp, Catrachito darlin in 3 MG/ML 6-25 LEFT EAR, l / 16:38: BID, X 7 [place] Dexamethaso 00 day, # 1 ne 1 MG/ML btl, 0 Otic Refill(s), Suspension Pharmacy: [Ciprodex] [facility] #7120 Ciprofloxac Yes 4 drp, Catrachito darlin in 3 MG/ML 6-25 LEFT EAR, l / 16:38: BID, X 7 [place] Dexamethaso 00 day, # 1 ne 1 MG/ML btl, 0 Otic Refill(s), Suspension Pharmacy: [Ciprodex] [facility] #7120 Aspirin 81 2018-0 Yes 81 mg [...] 6-14 tab, PO, l Coated 13:11: Daily, [place] Tablet 00 OTC, # 999,999 tab, 0 Refill(s), other Aspirin 81 2018-0 Yes 81 mg = 1 Me moria MG Enteric 6-14 tab, PO, l Coated 13:11: Daily, [place] Tablet 00 OTC, # 999,999 tab, 0 Refill(s), other Aspirin 81 2018-0 Yes 81 mg = 1 Me moria MG Enteric 6-14 tab, PO, l Coated 13:11: Daily, [place] Tablet 00 OTC, # 999,999 tab, 0 [...] 6-14 tab, PO, l Coated 13:11: Daily, [place] Tablet 00 OTC, # 999,999 tab, 0 [...] 6-14 tab, PO, l Coated 13:11: Daily, [place] Tablet 00 OTC, # 999,999 tab, 0 Refill(s), other Aspirin 81 2018-0 Yes 81 mg = 1 Me mor[place] MG Enteric 6-14 tab, PO, l Coated 13:11: Daily, [place] Tablet 00 OTC, # 999,999 tab, 0 Refill(s), other Aspirin 81 2018-0 Yes 81 mg = 1 [place] MG Enteric 6-14 tab, PO, l Coated 13:11: Daily, [place] Tablet 00 OTC, # 999,999 tab, 0 Refill(s), other albuterol 2018-0 Yes 2 puff, Memor ia 90 mcg/inh 6-14 INHALATION l inhalation 13:09: , Q4H, PRN H [place] aerosol 00 for wheezing, # 9 gm, 2 Refill(s), Pharmacy: [facility] #7120 albuterol 2018-0 Yes 2 puff, Mem[facility] ia 90 mcg/inh 6-14 INHALATION l inhalation 13:09: , Q4H, PRN H [place] aerosol 00 for wheezing, # 9 gm, 2 Refill(s), Pharmacy: [facility] #7120 albuterol 2018-0 Yes 2 puff, [place] ia 90 mcg/inh 6-14 INHALATION l inhalation 13:09: , Q4H, PRN H ermann aerosol 00 for wheezing, # 9 gm, 2 Refill(s), Pharmacy: [facility] #7120 albuterol 2018-0 Yes 2 puff, Mem[facility] ia 90 mcg/inh 6-14 INHALATION l inhalation 13:09: , Q4H, PRN H ermann aerosol 00 for wheezing, # 9 gm, 2 Refill(s), Pharmacy: [facility] #7120 albuterol 2018-0 Yes 2 puff, Memor ia 90 mcg/inh 6-14 INHALATION l inhalation 13:09: , Q4H, PRN H ermann aerosol 00 for wheezing, # 9 gm, 2 Refill(s), Pharmacy: [facility] #7120 albuterol 2018-0 Yes 2 puff, Memor ia 90 mcg/inh 6-14 INHALATION l inhalation 13:09: , Q4H, PRN H ermann aerosol 00 for wheezing, # 9 gm, 2 Refill(s), Pharmacy: [facility] #7120 albuterol 2018-0 Yes 2 puff, Memor ia 90 mcg/inh 6-14 INHALATION l inhalation 13:09: , Q4H, PRN H ermann aerosol 00 for wheezing, # 9 gm, 2 Refill(s), Pharmacy: [facility] #7120 albuterol 2018-0 Yes 2 puff, Memor ia 90 mcg/inh 6-14 INHALATION l inhalation 13:09: , Q4H, PRN H ermann aerosol 00 for wheezing, # 9 gm, 2 Refill(s), Pharmacy: [facility] #7120 albuterol 2018-0 Yes 2 puff, Memor ia 90 mcg/inh 6-14 INHALATION l inhalation 13:09: , Q4H, PRN H ermann aerosol 00 for wheezing, # 9 gm, 2 Refill(s), Pharmacy: [facility] #7120 albuterol 2018-0 Yes 2 puff, Memor ia 90 mcg/inh 6-14 INHALATION l inhalation 13:09: , Q4H, PRN H ermann aerosol 00 for wheezing, # 9 gm, 2 Refill(s), Pharmacy: [facility] #7120 albuterol 2018-0 Yes 2 puff, Memor ia 90 mcg/inh 6-14 INHALATION l inhalation 13:09: , Q4H, PRN H ermann aerosol 00 for wheezing, # 9 gm, 2 Refill(s), Pharmacy: [facility] #7120 albuterol 2018-0 Yes 2 puff, Memor ia 90 mcg/inh 6-14 INHALATION l inhalation 13:09: , Q4H, PRN H ermann aerosol 00 for wheezing, # 9 gm, 2 Refill(s), Pharmacy: [facility] #7120 albuterol 2018-0 Yes 2 puff, Memor ia 90 mcg/inh 6-14 INHALATION l inhalation 13:09: , Q4H, PRN H ermann aerosol 00 for wheezing, # 9 gm, 2 Refill(s), Pharmacy: [facility] #7120 albuterol 2018-0 Yes 2 puff, Memor ia 90 mcg/inh 6-14 INHALATION l inhalation 13:09: , Q4H, PRN H ermann aerosol 00 for wheezing, # 9 gm, 2 Refill(s), Pharmacy: [facility] #7120 albuterol 2018-0 Yes 2 puff, Memor ia 90 mcg/inh 6-14 INHALATION l inhalation 13:09: , Q4H, PRN H ermann aerosol 00 for wheezing, # 9 gm, 2 Refill(s), [facility] pantoprazol 2018-0 Yes 40 mg = 1 M emoria e 40 MG 5-04 tab, PO, l Enteric 18:43: Daily, # [place] n Coated 51 30 tab, 0 Tablet Refill(s), [Protonix] [facility] pantoprazol 2018-0 Yes 40 mg = 1 M emoria e 40 MG 5-04 tab, PO, l Enteric 18:43: Daily, # [place] n Coated 51 30 tab, 0 Tablet Refill(s), [Protonix] [facility] pantoprazol 2018-0 Yes 40 mg = 1 M emoria e 40 MG 5-04 tab, PO, l Enteric 18:43: Daily, # [place] n Coated 51 30 tab, 0 Tablet Refill(s), [Protonix] [facility] pantoprazol 2018-0 Yes 40 mg = 1 M emoria e 40 MG 5-04 tab, PO, l Enteric 18:43: Daily, # [place] n Coated 51 30 tab, 0 Tablet Refill(s), [Protonix] [facility] pantoprazol 2018-0 Yes 40 mg = 1 M emoria e 40 MG 5-04 tab, PO, l Enteric 18:43: Daily, # [place] n Coated 51 30 tab, 0 Tablet Refill(s), [Protonix] [facility] pantoprazol 2018-0 Yes 40 mg = 1 M emoria e 40 MG 5-04 tab, PO, l Enteric 18:43: Daily, # [place] n Coated 51 30 tab, 0 Tablet Refill(s), [Protonix] Pharmacy: [facility] #7120 pantoprazol 2018-0 Yes 40 mg = 1 M emoria e 40 MG 5-04 tab, PO, l Enteric 18:43: Daily, # [place] n Coated 51 30 tab, 0 Tablet Refill(s), [Protonix] [facility] pantoprazol 2018-0 Yes 40 mg = 1 M emoria e 40 MG 5-04 tab, PO, l Enteric 18:43: Daily, # [place] n Coated 51 30 tab, 0 Tablet Refill(s), [Protonix] [facility] pantoprazol 2018- Yes 40 mg = 1 M emoria e 40 MG 5-04 tab, PO, l Enteric 18:43: Daily, # [place] n Coated 51 30 tab, 0 Tablet Refill(s), [Protonix] [facility] pantoprazol 2018- Yes 40 mg = 1 M emoria e 40 MG 5-04 tab, PO, l Enteric 18:43: Daily, # [place] n Coated 51 30 tab, 0 Tablet Refill(s), [Protonix] [id number] pantoprazol 2018-0 Yes 40 mg = 1 M emoria e 40 MG 5-04 tab, PO, l Enteric 18:43: Daily, # [place] n Coated 51 30 tab, 0 Tablet Refill(s), [Protonix] [facility] pantoprazol 2018- Yes 40 mg = 1 M emoria e 40 MG 5-04 tab, PO, l Enteric 18:43: Daily, # [place] n Coated 51 30 tab, 0 Tablet Refill(s), [Protonix] [facility] pantoprazol 2018- Yes 40 mg = 1 M emoria e 40 MG 5-04 tab, PO, l Enteric 18:43: Daily, # [place] n Coated 51 30 tab, 0 Tablet Refill(s), [Protonix] [facility] pantoprazol 2018-0 Yes 40 mg = 1 M emoria e 40 MG 5-04 tab, PO, l Enteric 18:43: Daily, # [place] n Coated 51 30 tab, 0 Tablet Refill(s), [Protonix] Pharmacy: [facility] #7120 pantoprazol 2018-0 Yes 40 mg = 1 M emoria e 40 MG 5-04 tab, PO, l Enteric 18:43: Daily, # [place] n Coated 51 30 tab, 0 Tablet Refill(s), [Protonix] Pharmacy: [facility] #[id number] Fluticasone 2018-0 Yes See Memori a propionate 1-02 Instructio l 0.05 15:21: ns, # 16 [place] MG/ACTUAT 09 mL, Metered Refill(s) Dose Nasal 1, INHALE [place] 2 SPRAYS IN EACH NOSTRIL ONCE DAILY NEEDED FOR CONGESTION ., [id number] Fluticasone Yes See Memori a propionate 1-02 Instructio l 0.05 15:21: ns, # 16 [place] MG/ACTUAT 09 mL, Metered Refill(s) Dose Nasal 1, INHALE [place] 2 SPRAYS IN EACH NOSTRIL ONCE DAILY NEEDED FOR CONGESTION ., [id number] Fluticasone Yes See Memori a propionate 1-02 Instructio l 0.05 15:21: ns, # 16 [place] MG/ACTUAT 09 mL, Metered Refill(s) Dose Nasal 1, INHALE [place] 2 SPRAYS IN EACH NOSTRIL ONCE DAILY NEEDED FOR CONGESTION ., [id number] Fluticasone Yes See Memori a propionate 1-02 Instructio l 0.05 15:21: ns, # 16 [place] MG/ACTUAT 09 mL, Metered Refill(s) Dose Nasal 1, INHALE [place] 2 SPRAYS IN EACH NOSTRIL ONCE DAILY NEEDED FOR CONGESTION ., [id number] Fluticasone Yes See Memori a propionate 1-02 Instructio l 0.05 15:21: ns, # 16 [place] MG/ACTUAT 09 mL, Metered Refill(s) Dose Nasal 1, INHALE [place] 2 SPRAYS IN EACH NOSTRIL ONCE DAILY NEEDED FOR CONGESTION ., [id number] Fluticasone Yes See Memori a propionate 1-02 Instructio l 0.05 15:21: ns, # 16 [place] MG/ACTUAT 09 mL, Metered Refill(s) Dose Nasal 1, INHALE [place] 2 SPRAYS IN EACH NOSTRIL ONCE DAILY NEEDED FOR CONGESTION ., [id number] Fluticasone Yes See Memori a propionate 1-02 Instructio l 0.05 15:21: ns, # 16 [place] MG/ACTUAT 09 mL, Metered Refill(s) Dose Nasal 1, INHALE [place] 2 SPRAYS IN EACH NOSTRIL ONCE DAILY NEEDED FOR CONGESTION ., Pharmacy: [facility] #[id number] Fluticasone Yes See Memori a propionate 1-02 Instructio l 0.05 15:21: ns, # 16 [place] MG/ACTUAT 09 mL, Metered Refill(s) Dose Nasal 1, INHALE [place] 2 SPRAYS IN EACH NOSTRIL ONCE DAILY NEEDED FOR CONGESTION ., Pharmacy: [facility] #71 Fluticasone Yes See Memori a propionate 1-02 Instructio l 0.05 15:21: ns, # 16 [place] MG/ACTUAT 09 mL, Metered Refill(s) Dose Nasal 1, INHALE [place] 2 SPRAYS IN EACH NOSTRIL ONCE DAILY NEEDED FOR CONGESTION ., [id number] Fluticasone Yes See Memori a propionate 1-02 Instructio l 0.05 15:21: ns, # 16 [place] MG/ACTUAT 09 mL, Metered Refill(s) Dose Nasal 1, INHALE [place] 2 SPRAYS IN EACH NOSTRIL ONCE DAILY NEEDED FOR CONGESTION ., Pharmacy: [facility] #[id number] Fluticasone Yes See Memori a propionate 1-02 Instructio l 0.05 15:21: ns, # 16 [place] MG/ACTUAT 09 mL, Metered Refill(s) Dose Nasal 1, INHALE [place] 2 SPRAYS IN EACH NOSTRIL ONCE DAILY NEEDED FOR CONGESTION ., Pharmacy: [facility] #[id number] Fluticasone Yes See Memori a propionate 1-02 Instructio l 0.05 15:21: ns, # 16 [place] MG/ACTUAT 09 mL, Metered Refill(s) Dose Nasal 1, INHALE [place] 2 SPRAYS IN EACH NOSTRIL ONCE DAILY NEEDED FOR CONGESTION ., [id number] Fluticasone Yes See Memori a propionate 1-02 Instructio l 0.05 15:21: ns, # 16 [place] MG/ACTUAT 09 mL, Metered Refill(s) Dose Nasal 1, INHALE [place] 2 SPRAYS IN EACH NOSTRIL ONCE DAILY NEEDED FOR CONGESTION ., [id number] Fluticasone Yes See Memori a propionate 1-02 Instructio l 0.05 15:21: ns, # 16 [place] MG/ACTUAT 09 mL, Metered Refill(s) Dose Nasal 1, INHALE [place] 2 SPRAYS IN EACH NOSTRIL ONCE DAILY NEEDED FOR CONGESTION ., Pharmacy: [facility] #[id number] Fluticasone 2017-0 Yes See Memori a propionate - Instructio l 0.05 15:21: ns, # 16 [place] MG/ACTUAT 09 mL, Metered Refill(s) Dose Nasal 1, INHALE [place] 2 SPRAYS IN EACH NOSTRIL ONCE DAILY NEEDED FOR CONGESTION ., Pharmacy: [facility] #[id number] Fluticasone 2016-09 Yes 2 spray, Me moria propionate -13 NASAL, l 0.05 22:30: Daily, PRN [place] MG/ACTUAT 00 Nasal Metered Congestion Dose Nasal , in each [place] nostril, # [Flonase] 16 gm, 1 Refill(s), Pharmacy: [facility] #[id number] clarithromy 2016-09 Yes 500 mg = 1 Memoria roberto 500 mg -13 tab, PO, l oral tablet 22:30: Q12H, X 10 [place] 00 day, # 20 tab, 0 Refill(s), Pharmacy: [facility] #[id number] Bromphenira 2016-09 Yes 5 mL, PO, M emoria mine - Q6H, PRN l Maleate 0.4 22:30: for cough [place] MG/ML / 00 and Dextrometho congestion rphan , X 10 Hydrobromid day, # 120 e 2 MG/ML / mL, 0 Pseudoephed Refill(s), rine Pharmacy: Hydrochlori [facility] de 6 MG/ML cy #[id number] Oral Solution Fluticasone 2016-09 Yes 2 spray, Me moria propionate -13 NASAL, l 0.05 22:30: Daily, PRN [place] MG/ACTUAT 00 Nasal Metered Congestion Dose Nasal , in each [place] nostril, # [Flonase] 16 gm, 1 Refill(s), Pharmacy: [facility] #[id number] clarithromy 2016-09 Yes 500 mg = 1 Mem[facility] roberto 500 mg 1-13 tab, PO, l oral tablet 22:30: Q12H, X 10 [place] 00 day, # 20 tab, 0 Refill(s), [facility]acy: [facility] #[id number] Bromphenira 2017 Yes 5 mL, PO, M emoria mine - Q6H, PRN l Maleate 0.4 22:30: for cough [place] MG/ML / 00 and Dextrometho congestion rphan , X 10 Hydrobromid day, # 120 e 2 MG/ML / mL, 0 Pseudoephed Refill(s), [facility] Pharmacy: [facility] 6 MG/ML cy #[id number] Oral Solution Fluticasone 2016-09 Yes 2 spray, Me moria propionate -13 NASAL, l 0.05 22:30: Daily, PRN [place] MG/ACTUAT 00 Nasal Metered Congestion Dose Nasal , in each [place] nostril, # [Flonase] 16 gm, 1 Refill(s), Pharmacy: [facility] #[id number] clarithromy 2016-09 Yes 500 mg = 1 Memoria roberto 500 mg -13 tab, PO, l oral tablet 22:30: Q12H, X 10 [place] 00 day, # 20 tab, 0 Refill(s), Pharmacy: [facility] #[id number] Bromphenira 2016-09 Yes 5 mL, PO, M emoria mine 09-24 Q6H, PRN l Male[place] 0.4 22:30: for cough [place] MG/ML / 00 and Dextrometho congestion rphan , X 10 Hydrobromid day, # 120 e 2 MG/ML / mL, 0 Pseudoephed Refill(s), [facility] Pharmacy: [facility] 6 MG/ML cy #[id number] Oral Solution Fluticasone 2016-09 Yes 2 spray, Me moria propionate 13 NASAL, l 0.05 22:30: Daily, PRN [place] MG/ACTUAT 00 Nasal Metered Congestion Dose Nasal , in each [place] nostril, # [Flonase] 16 gm, 1 Refill(s), Pharmacy: [facility] #[id number] clarithromy 2016-09 Yes 500 mg = 1 Memoria roberto 500 mg -13 tab, PO, l oral tablet 22:30: Q12H, X 10 [place] 00 day, # 20 tab, 0 Refill(s), Pharmacy: [facility] #[id number] Bromphenira 2016-09 Yes 5 mL, PO, M emoria mine 09-24 Q6H, PRN l [place] 0.4 22:30: for cough [place] MG/ML / 00 and Dextrometho congestion rphan , X 10 Hydrobromid day, # 120 e 2 MG/ML / mL, 0 Pseudoephed Refill(s), [facility] Pharmacy: [facility] 6 MG/ML cy #[id number] Oral Solution Fluticasone 2016-09 Yes 2 spray, Me moria propionate -13 NASAL, l 0.05 22:30: Daily, PRN [place] MG/ACTUAT 00 Nasal Metered Congestion Dose Nasal , in each [place] nostril, # [Flonase] 16 gm, 1 Refill(s), Pharmacy: [facility] #[id number] clarithromy 2016-09 Yes 500 mg = 1 Memoria roberto 500 mg 09-24 tab, PO, l oral tablet 22:30: Q12H, X 10 [place] 00 day, # 20 tab, 0 Refill(s), Pharmacy: [facility] #[id number] Bromphenira 2016-09 Yes 5 mL, PO, M emoria mine 09-24 Q6H, PRN l Male[place] 0.4 22:30: for cough [place] MG/ML / 00 and Dextrometho congestion rphan , X 10 Hydrobromid day, # 120 e 2 MG/ML / mL, 0 Pseudoephed Refill(s), [facility] Pharmacy: [facility] 6 MG/ML cy #[id number] Oral Solution Fluticasone 2016-09 Yes 2 spray, Me moria propionate -13 NASAL, l 0.05 22:30: Daily, PRN [place] MG/ACTUAT 00 Nasal Metered Congestion Dose Nasal , in each [place] nostril, # [Flonase] 16 gm, 1 Refill(s), Pharmacy: [facility] #[id number] clarithromy 2016-09 Yes 500 mg = 1 Memoria roberto 500 mg -13 tab, PO, l oral tablet 22:30: Q12H, X 10 [place] 00 day, # 20 tab, 0 Refill(s), Pharmacy: [facility] #[id number] Bromphenira 2017 Yes 5 mL, PO, M emoria mine 1-13 Q6H, PRN l [place] 0.4 22:30: for cough [place] MG/ML / 00 and Dextrometho congestion rphan , X 10 Hydrobromid day, # 120 e 2 MG/ML / mL, 0 Pseudoephed Refill(s), [facility] MG/ML cy #[id number] Oral Solution Fluticasone 2016-09 Yes 2 spray, Me moria propionate 1-13 NASAL, l 0.05 22:30: Daily, PRN [place] MG/ACTUAT 00 Nasal Metered Congestion Dose Nasal , in each [place] nostril, # [Flonase] 16 gm, 1 Refill(s), Pharmacy: [facility] #[id number] clarithromy 2016-09 Yes 500 mg = 1 Memoria roberto 500 mg -13 tab, PO, l oral tablet 22:30: Q12H, X 10 [place] 00 day, # 20 tab, 0 Refill(s), Pharmacy: [facility] #[id number] Bromphenira 2016-09 Yes 5 mL, PO, M emoria mine 13 Q6H, PRN l [place] 0.4 22:30: for cough [place] MG/ML / 00 and Dextrometho congestion rphan , X 10 Hydrobromid day, # 120 e 2 MG/ML / mL, 0 Pseudoephed Refill(s), [facility] 6 MG/ML cy #[id number] Oral Solution Fluticasone 2016-09 Yes 2 spray, Me moria propionate -13 NASAL, l 0.05 22:30: Daily, PRN [place] MG/ACTUAT 00 Nasal Metered Congestion Dose Nasal , in each [place] nostril, # [Flonase] 16 gm, 1 Refill(s), Pharmacy: [facility] #[id number] clarithromy 2016-09 Yes 500 mg = 1 Memoria roberto 500 mg -13 tab, PO, l oral tablet 22:30: Q12H, X 10 [place] 00 day, # 20 tab, 0 Refill(s), Pharmacy: [facility] #[id number] Bromphenira 2016-09 Yes 5 mL, PO, M emoria mine -13 Q6H, PRN l [place] 0.4 22:30: for cough [place] MG/ML / 00 and Dextrometho congestion rphan , X 10 Hydrobromid day, # 120 e 2 MG/ML / mL, 0 Pseudoephed Refill(s), [facility] Pharmacy: [facility] 6 MG/ML cy #[id number] Oral Solution Fluticasone 2016-09 Yes 2 spray, Me moria propionate 1-13 NASAL, l 0.05 22:30: Daily, PRN [place] MG/ACTUAT 00 Nasal Metered Congestion Dose Nasal , in each [place] nostril, # [Flonase] 16 gm, 1 Refill(s), Pharmacy: [facility] #[id number] clarithromy 2016-09 Yes 500 mg = 1 Memoria roberto 500 mg 1-13 tab, PO, l oral tablet 22:30: Q12H, X 10 [place] 00 day, # 20 tab, 0 Refill(s), Pharmacy: [facility] #[id number] Bromphenira 2016-09 Yes 5 mL, PO, M emoria mine 1-13 Q6H, PRN l [place] 0.4 22:30: for cough [place] MG/ML / 00 and Dextrometho congestion rphan , X 10 Hydrobromid day, # 120 e 2 MG/ML / mL, 0 Pseudoephed Refill(s), [facility] Pharmacy: [facility] 6 MG/ML cy #[id number] Oral Solution Fluticasone 2016-09 Yes 2 spray, Me moria propionate 1-13 NASAL, l 0.05 22:30: Daily, PRN [place] MG/ACTUAT 00 Nasal Metered Congestion Dose Nasal , in each [place] nostril, # [Flonase] 16 gm, 1 Refill(s), Pharmacy: [facility] #[id number] clarithromy 2016-09 Yes 500 mg = 1 Memoria roberto 500 mg 1-13 tab, PO, l oral tablet 22:30: Q12H, X 10 [place] 00 day, # 20 tab, 0 Refill(s), Pharmacy: [facility] #[id number] Bromphenira 2016-09 Yes 5 mL, PO, M emoria mine 1-13 Q6H, PRN l [place] 0.4 22:30: for cough [place] MG/ML / 00 and Dextrometho congestion rphan , X 10 Hydrobromid day, # 120 e 2 MG/ML / mL, 0 Pseudoephed Refill(s), [facility] Pharmacy: [facility] 6 MG/ML cy #[id number] Oral Solution Fluticasone 2016-09 Yes 2 spray, Me moria propionate 1-13 NASAL, l 0.05 22:30: Daily, PRN [place] MG/ACTUAT 00 Nasal Metered Congestion Dose Nasal , in each [place] nostril, # [Flonase] 16 gm, 1 Refill(s), Pharmacy: [facility] cy #[id number] clarithromy 2016-09 Yes 500 mg = 1 Memoria roberto 500 mg 1-13 tab, PO, l oral tablet 22:30: Q12H, X 10 [place] 00 day, # 20 tab, 0 Refill(s), Pharmacy: [facility] cy #[id number] Bromphenira 2016-09 Yes 5 mL, PO, M emoria mine 09-24 Q6H, PRN l [place] 0.4 22:30: for cough [place] MG/ML / 00 and Dextrometho congestion rphan , X 10 Hydrobromid day, # 120 e 2 MG/ML / mL, 0 Pseudoephed Refill(s), [facility] Pharmacy: [facility] 6 MG/ML cy #[id number] Oral Solution Fluticasone 2016-09 Yes 2 spray, Me moria propionate 1-13 NASAL, l 0.05 22:30: Daily, PRN [place] MG/ACTUAT 00 Nasal Metered Congestion Dose Nasal , in each [place] nostril, # [Flonase] 16 gm, 1 Refill(s), Pharmacy: [facility] cy #[id number] clarithromy 2016-09 Yes 500 mg = 1 Memoria roberto 500 mg 1-13 tab, PO, l oral tablet 22:30: Q12H, X 10 [place] 00 day, # 20 tab, 0 Refill(s), Pharmacy: [facility] cy #[id number] Bromphenira 2016-09 Yes 5 mL, PO, M emoria mine -13 Q6H, PRN l [place] 0.4 22:30: for cough [place] MG/ML / 00 and Dextrometho congestion rphan , X 10 Hydrobromid day, # 120 e 2 MG/ML / mL, 0 Pseudoephed [facility]ill(s), [facility]: [facility] MG/ML cy #[id number] Oral Solution Fluticasone 2016-09 Yes 2 spray, Me moria propionate -13 NASAL, l 0.05 22:30: Daily, PRN [place] MG/ACTUAT 00 Nasal Metered Congestion Dose Nasal , in each [place] nostril, # [Flonase] 16 gm, 1 Refill(s), Pharmacy: [facility] #[id number] clarithromy 2016-09 Yes 500 mg = 1 Memoria roberto 500 mg -13 tab, PO, l oral tablet 22:30: Q12H, X 10 [place] 00 day, # 20 tab, 0 Refill(s), Pharmacy: [facility] #[id number] Bromphenira 2016-09 Yes 5 mL, PO, M emoria mine 09-24 Q6H, PRN l [place] 0.4 22:30: for cough [place] MG/ML / 00 and Dextrometho congestion rphan , X 10 Hydrobromid day, # 120 e 2 MG/ML / mL, 0 Pseudoephed Refill(s), [facility] Pharm[facility]: [facility] 6 MG/ML cy #[id number] Oral Solution Fluticasone 2016-09 Yes 2 spray, Me moria propionate -13 NASAL, l 0.05 22:30: Daily, PRN [place] MG/ACTUAT 00 Nasal Metered Congestion Dose Nasal , in each [place] nostril, # [Flonase] 16 gm, 1 Refill(s), Pharmacy: [facility] #[id number] clarithromy 2016-09 Yes 500 mg = 1 Memoria roberto 500 mg -13 tab, PO, l oral tablet 22:30: Q12H, X 10 [place] 00 day, # 20 tab, 0 Refill(s), Pharmacy: [facility] #[id number] Bromphenira 2016-09 Yes 5 mL, PO, M emoria mine 09-24 Q6H, PRN l [place] 0.4 22:30: for cough [place] MG/ML / 00 and Dextrometho congestion rphan , X 10 Hydrobromid day, # 120 e 2 MG/ML / mL, 0 Pseudoephed Refill(s), [facility]: [facility] 6 MG/ML cy #[id number] Oral Solution Fluticasone 2016-09 Yes 2 spray, Me moria propionate -13 NASAL, l 0.05 22:30: Daily, PRN [place] MG/ACTUAT 00 Nasal Metered Congestion Dose Nasal , in each [place] nostril, # [Flonase] 16 gm, 1 Refill(s), Pharmacy: [facility] #[id number] clarithromy 2016-09 Yes 500 mg = 1 Memoria roberto 500 mg -13 tab, PO, l oral tablet 22:30: Q12H, X 10 [place] 00 day, # 20 tab, 0 Refill(s), Pharmacy: [facility] #[id number] Bromphenira 2016-09 Yes 5 mL, PO, M emoria mine -13 Q6H, PRN l [place] 0.4 22:30: for cough [place] MG/ML / 00 and Dextrometho congestion rphan , X 10 Hydrobromid day, # 120 e 2 MG/ML / mL, 0 Pseudoephed Refill(s), [facility] Pharm[facility]: [facility] 6 MG/ML cy #[id number] Oral Solution Immunizations Ordered Immunization Filled Immunization Date Status Commen ts Source Name Name CLGL-LrL-5TCJJF- 2021-12-03 Completed [place] [place] [facility] 14:38:00 [place] p>1</sup> MDYP-VdF-9GLFQJ-19 2021-12-03 Completed [place] [place] [facility] 14:38:00 [place] p>1</sup> CQQE-KcF-9WBCTF- 2021-12-03 Completed [place] [place] [facility] 14:38:00 [place] p>1</sup> LFGA-SuG-8UGFUK- 2021-12-03 Completed [place] [place] [facility] 14:38:00 [place] p>1</sup> JZJR-AtA-2HJROB- 2021-12-03 Completed [place] [place] [facility] 14:38:00 [place] p>1</sup> IHQS-CkL-5ADCST-19mR 2021-12-03 Completed [place] [place] [facility] 14:38:00 [place] p>1</sup> YQOE-QdZ-0NQJJT-19mR 2021-12-03 Completed [place] [place] [facility] 14:38:00 [place] p>1</sup> EHWA-DoH-2BQNRF-19mR 2021-12-03 Completed [place] [place] [facility] 14:38:00 [place] p>1</sup> PGKU-OmP-3ZZZOL-19mR 2021-12-03 Completed [place] [place] NA-[facility] 14:38:00 [place] p>1</sup> XAWT-RdT-2CLWCX-19mR 2021-12-03 Completed [place] [place] NA-[facility]<[place] 14:38:00 Herm [place] p>1</sup> YHWX-IzA-4MXJGZ-19mR 2021-12-03 Completed [place] [place] NA-[facility] 14:38:00 [place] p>1</sup> JDGC-AoA-9FVTUH-19mR 2021-12-03 Completed [place] [place] NA-[facility]<[place] 14:38:00 [place] p>1</sup> XAKJ-ToQ-0WTIZJ-19mR 2021-12-03 Completed [place] [place] NA-[facility]<[place] 14:38:00 Herm [place] p>1</sup> PCIZ-ZlV-6NWIMZ-19mR 2021-12-03 Completed [place] [place] [facility]<[place] 14:38:00 Herm [place] p>1</sup> NEEB-TvA-3PRAED-19mR 2021-12-03 Completed [place] [place] NA-[facility]<[place] 14:38:00 Herm [place] p>1</sup> CHTL-TyV-4ZBIAQ-19mR 2021-08-11 Completed [place] [place] [facility] 17:39:00 [place] p>1</sup> XSIX-MyG-9COULJ-19mR 2021-08-11 Completed [place] [place] [facility]<[place] 17:39:00 [place] p>2</sup> IJHT-MbP-6CEKUH-19mR 2021-08-11 Completed [place] [place] NA-[facility]<[place] 17:39:00 Herm [place] p>1</sup> BXGB-UgY-0WDQFX-19mR 2021-08-11 Completed [place] [place] [facility]<[place] 17:39:00 Herm s[place] p>2</sup> HMWF-WtR-6EWEAI-19mR 2021-08-11 Completed [place] [place] [facility] 17:39:00 [place] p>1</sup> QSQI-GhW-3NOWPX-19mR 2021-08-11 Completed [place] [place] [facility] 17:39:00 [place] p>2</sup> LHNN-YmG-2WKJTU-19mR 2021-08-11 Completed [place] [place] [facility] 17:39:00 Herm s[place] p>1</sup> COYB-HhV-2KBFXR-19mR 2021-08-11 Completed [place] [place] NA-[facility]<[place] 17:39:00 Herm s[place] p>2</sup> LPGS-XkC-9PVLDE-19mR 2021-08-11 Completed [place] [place] NA-[facility]<[place] 17:39:00 Herm s[place] p>1</sup> OWTH-FyB-7HQJAE-19mR 2021-08-11 Completed [place] [place] [facility] 17:39:00 Herm [place] p>2</sup> OHQJ-McD-9JLQKI-19mR 2021-08-11 Completed [place] [place] [facility]<[place] 17:39:00 Herm sienna p>1</sup> IZRQ-LlF-5YILNW-19mR 2021-08-11 Completed [place] [place] [facility]<[place] 17:39:00 Herm s[place] p>2</sup> IRSC-ZtO-6QTAID-19mR 2021-08-11 Completed [place] [place] [facility]<[place] 17:39:00 Herm s[place] p>1</sup> IGCV-UxM-8NRIFA-19mR 2021-08-11 Completed [place] [place] [facility]<[place] 17:39:00 Herm s[place] p>2</sup> ISYF-StE-0XPQXR-19mR 2021-08-11 Completed [place] [place] [facility]<[place] 17:39:00 Herm s[place] p>1</sup> CXRY-CfX-4AVBSG-19mR 2021-08-11 Completed [place] [place] [facility]<[place] 17:39:00 Herm [place] p>2</sup> RYHO-TtF-8RPCPL-19mR 2021-08-11 Completed [place] [place] [facility]<[place] 17:39:00 Herm [place] p>1</sup> HOXV-MjS-7QWWNQ-19mR 2021-08-11 Completed [place] [place] [facility]<[place] 17:39:00 Herm [place] p>2</sup> PUUW-BuW-2PPQPX-19mR 2021-08-11 Completed [place] [place] [facility]<[place] 17:39:00 [place] p>1</sup> ZNBQ-RvQ-1TCUFR-19mR 2021-08-11 Completed [place] [place] [facility] 17:39:00 [place] p>2</sup> OBJC-BsW-4VHWFW-19mR 2021-08-11 Completed [place] [place] [facility] 17:39:00 [place] p>1</sup> APCL-ZpH-0CQUJT-19mR 2021-08-11 Completed [place] [place] [facility]<[place] 17:39:00 Herm [place] p>2</sup> QKAN-JsU-3TEGYM-19mR 2021-08-11 Completed [place] [place] [facility] 17:39:00 [place] p>1</sup> ISSK-JgD-7YEAAY-19mR 2021-08-11 Completed [place] [place] [facility] 17:39:00 Herm [place] p>2</sup> BIME-LwO-4ONZMO-19mR 2021-08-11 Completed [place] [place] NA-[facility]<crawofrd 17:39:00 Herm s[place] p>1</sup> TKHB-FxB-2PXTOV-19mR 2021-08-11 Completed [place] [place] [facility]<[place] 17:39:00 Herm s[place] p>2</sup> HMWT-IqW-6WTYZH-19mR 2021-08-11 Completed [place] [place] [facility]<[place] 17:39:00 Herm s[place] p>1</sup> MPKC-ZsD-1GNGOB-19mR 2021-08-11 Completed [place] [place] [facility]<[place] 17:39:00 Herm [place] p>2</sup> TRCJ-JrL-9AVLNK-19mR 2021-08-11 Completed [place] [place] [facility]<[place] 17:39:00 [place] p>1</sup> YFKK-GnV-6OLJYB-19mR 2021-08-11 Completed [place] [facility]<[place] 17:39:00 [place] p>2</sup> KYMD-DyH-5SUXKN-19mR 2021-07-14 Completed [place] [facility]<[place] 18:52:00 Herm [place] p>2</sup> FHDL-GdF-7BCYFP-19mR 2021-07-14 Completed [place] [facility]<[place] 18:52:00 Herm [place] p>1</sup> JOPP-LvV-8IWMCZ-19mR 2021-07-14 Completed [place] [facility]<[place] 18:52:00 Herm [place] p>3</sup> GSTH-KuA-7YUSWQ-19mR 2021-07-14 Completed [place] [facility]<[place] 18:52:00 Herm [place] p>2</sup> FBLQ-FaP-2AWMNC-19mR 2021-07-14 Completed [place] [facility]<[place] 18:52:00 Herm [place] p>1</sup> HNJS-UwW-1ZLNUO-19mR 2021-07-14 Completed [place] [facility] NA-[facility]<[place] 18:52:00 Herm [place] p>3</sup> HNGB-UnO-4JEWVB-19mR 2021-07-14 Completed [place] [facility] NA-[facility]<[place] 18:52:00 Herm [place] p>2</sup> NVZF-BxY-0MTEPB-19mR 2021-07-14 Completed [place] [facility] NA-[facility]<[place] 18:52:00 Herm [place] p>1</sup> JWJK-XsO-7BDKDA-19mR 2021-07-14 Completed [place] [facility] NA-[facility]<[place] 18:52:00 Herm [place] p>3</sup> QQHV-XgH-6PLUWP-19mR 2021-07-14 Completed [place] [facility]<[place] 18:52:00 Herm s[place] p>2</sup> GUMJ-RyG-1BIMVU-19mR 2021-07-14 Completed [place] [facility] NA-[facility]<[place] 18:52:00 Herm sienna p>1</sup> IQYX-LkT-5OXEDK-19mR 2021-07-14 Completed [place] [facility]<[place] 18:52:00 Herm sienna p>3</sup> IAEP-FnT-1SRQCP-19mR 2021-07-14 Completed [place] [facility]<[place] 18:52:00 Herm s[place] p>2</sup> EMPJ-IhN-8UQCZK-19mR 2021-07-14 Completed [place] [facility]<[place] 18:52:00 Herm [place] p>1</sup> AXEJ-MhY-6MSXKV-19mR 2021-07-14 Completed [place] [facility] NA-[facility]<[place] 18:52:00 Herm s[place] p>3</sup> DMOG-VeK-5JPOFN-19mR 2021-07-14 Completed [place] [facility] NA-[facility]<[place] 18:52:00 Herm [place] p>2</sup> MTPQ-AyG-9GLIZS-19mR 2021-07-14 Completed [place] [facility] NA-[facility]<[place] 18:52:00 Herm s[place] p>1</sup> OBLE-OxC-9IOJTI-19mR 2021-07-14 Completed [place] [facility] NA-[facility]<[place] 18:52:00 Herm s[place] p>3</sup> UIYW-JzV-3IAUFU-19mR 2021-07-14 Completed [place] [facility] NA-[facility]<[place] 18:52:00 Herm [place] p>2</sup> EAFE-VzM-1COZIV-19mR 2021-07-14 Completed [place] [facility] NA-[facility]<[place] 18:52:00 Herm [place] p>1</sup> XYEM-QzL-9TQZPA-19mR 2021-07-14 Completed [place] [facility] NA-[facility]<[place] 18:52:00 Herm [place] p>3</sup> BHIY-AaL-1LVREF-19mR 2021-07-14 Completed [place] [facility] NA-[facility]<[place] 18:52:00 Herm [place] p>2</sup> XHJX-RzB-5TPYOP-19mR 2021-07-14 Completed [place] [facility] NA-[facility]<[place] 18:52:00 Herm [place] p>1</sup> ZKRF-LmU-3NVXKE-19mR 2021-07-14 Completed [place] [facility] NA-[facility]<[place] 18:52:00 Herm sienna p>3</sup> XTHZ-WpX-8VKWGE-19mR 2021-07-14 Completed [place] [facility] NA-1273vaxMODERNA<crawford 18:52:00 Herm sienna p>2</sup> STRL-SmP-7CNROV-19mR 2021-07-14 Completed [place] [facility] NA-1273vaxMODERNA<crawford 18:52:00 Herm sienna p>1</sup> STYJ-YiZ-3KGFAC-19mR 2021-07-14 Completed [place] [facility] NA-1273vaxMODERNA<crawford 18:52:00 Herm sienna p>3</sup> AJEF-AfH-3VSSKK-19mR 2021-07-14 Completed [place] [facility] NA-1273vaxMODERNA<crawford 18:52:00 Herm sienna p>2</sup> NTMZ-HrJ-1MFXUM-19mR 2021-07-14 Completed [place] [facility] NA-1273vaxMODERNA<crawford 18:52:00 Herm sienna p>1</sup> YMAS-IiD-3QPPOM-19mR 2021-07-14 Completed [place] [facility] NA-1273vaxMODERNA<crawford 18:52:00 Herm sienna p>3</sup> HGVF-ObE-2ZZERQ-19mR 2021-07-14 Completed [place] [facility] NA-1273vaxMODERNA<crawford 18:52:00 Herm sienna p>2</sup> GJCZ-MbF-9SPBFE-19mR 2021-07-14 Completed [place] [facility] NA-1273vaxMODERNA<crawford 18:52:00 Herm sienna p>1</sup> DNAE-TuN-8URZCN-19mR 2021-07-14 Completed [place] [facility] NA-1273vaxMODERNA<crawford 18:52:00 Herm sienna p>3</sup> ZAFR-BaA-6QGHVD-19mR 2021-07-14 Completed [place] [facility] NA-1273vaxMODERNA<crawford 18:52:00 Herm sienna p>2</sup> TJJI-RlZ-6UJUSQ-19mR 2021-07-14 Completed [place] [facility] NA-1273vaxMODERNA<crawford 18:52:00 Herm sienna p>1</sup> MGID-YgM-3VYCOR-19mR 2021-07-14 Completed [place] [facility] NA-1273vaxMODERNA<crawford 18:52:00 Herm sienna p>3</sup> IYNC-KvU-8CCUVV-19mR 2021-07-14 Completed [place] [facility] NA-1273vaxMODERNA<crawford 18:52:00 Herm sienna p>2</sup> DDSW-OaY-3XHEFV-19mR 2021-07-14 Completed [place] [facility] NA-1273vaxMODERNA<crawford 18:52:00 Herm sienna p>1</sup> CKEC-ZwX-6GICNV-19mR 2021-07-14 Completed [place] [facility] NA-1273vaxMODERNA<crawford 18:52:00 Herm sienna p>3</sup> XCNP-GbN-0YTLNG-19mR 2021-07-14 Completed [place] [facility] NA-1273vaxMODERNA<crawford 18:52:00 Herm sienna p>2</sup> ICZW-ObO-0EOAID-19mR 2021-07-14 Completed [place] [facility] NA-1273vaxMODERNA<crawford 18:52:00 Herm sienna p>1</sup> DWKZ-XbC-4WWBCQ-19mR 2021-07-14 Completed [place] [facility] NA-1273vaxMODERNA<crawford 18:52:00 Herm sienna p>3</sup> VLCL-BiV-6BUZTS-19mR 2021-07-14 Completed [place] [facility] NA-1273vaxMODERNA<crawford 18:52:00 Herm sienna p>2</sup> RUDQ-UtK-2GKLAW-19mR 2021-07-14 Completed [place] [facility] NA-1273vaxMODERNA<crawford 18:52:00 Herm sienna p>1</sup> MSQE-HqE-0WXABV-19mR 2021-07-14 Completed [place] [facility] NA-1273vaxMODERNA<crawford 18:52:00 Herm sienna p>3</sup> Vital Signs Vital Name Observation Time Observation Value Comments Source Systolic blood 2023-01-18 18:09:00 146 mm[Hg] Univer sity of pressure [facility] Diastolic blood 2023-01-18 18:09:00 78 mm[Hg] Unive rsity of pressure [facility] Heart rate 2023-01-18 18:07:00 78 /min [facility] Body temperature 2023-01-18 18:07:00 35.72 [facility] Body height 2023-01-18 18:07:00 157.5 cm [facility] Body weight 2023-01-18 18:07:00 112.311 kg [facility] BMI 2023-01-18 18:07:00 45.29 kg/m2 [facility] Oxygen saturation in 2023-01-18 18:07:00 98 /min [facility] Systolic blood 2022-06-30 18:33:00 114 mm[Hg] [facility] Diastolic blood 2022-06-30 18:33:00 76 mm[Hg] [facility] Heart rate 2022-06-30 18:33:00 92 /min [facility] Body height 2022-06-30 18:33:00 157.5 cm [facility] Body weight 2022-06-30 18:33:00 112.084 kg [facility] BMI 2022-06-30 18:33:00 45.20 kg/m2 [facility] Oxygen saturation in 2022-06-30 18:33:00 97 /min [facility] by [facility] Systolic blood 2022-06-01 16:51:00 126 mm[Hg] [facility] Diastolic blood 2022-06-01 16:51:00 64 mm[Hg] [facility] Heart rate 2022-06-01 16:51:00 67 /min [facility] Body temperature 2022-06-01 16:51:00 36 [place] [facility] Respiratory rate 2022-06-01 16:51:00 18 /min [facility] Oxygen saturation in 2022-06-01 16:51:00 99 /min [facility] Arterial blood by [facility] Pulse oximetry Branch Body weight 2022-06-01 10:52:00 117.935 kg [facility] [place] [facility] BMI 2022-06-01 10:52:00 47.55 kg/m2 [facility] Body height 2022-05-28 05:00:00 157.5 cm Universi ty [facility] Systolic blood 2022-05-31 20:45:00 129 mm[Hg] Univer sity of pressure [facility] Diastolic blood 2022-05-31 20:45:00 71 mm[Hg] Unive rsity of pressure [facility] Respiratory rate 2022-05-31 20:45:00 17 /min [facility] Oxygen saturation in 2022-05-31 20:45:00 97 /min [facility] Arterial blood by [facility] Pulse oximetry Branch Heart rate 2022-05-31 16:40:00 71 /min [facility] Body temperature 2022-05-31 16:40:00 35.72 [facility] Body weight 2022-05-31 09:42:00 116.438 kg Universi [facility] BMI 2022-05-31 09:42:00 47.55 kg/m2 [facility] Body height 2022-05-28 05:00:00 157.5 cm [facility] Height 2023-01-18 14:50:00 5 [ft_i] [facility] Weight 2023-01-18 14:50:00 [facility] BMI Calculated 2023-01-18 14:50:00 [facility] Systolic (mm Hg) 2023-01-18 14:50:00 Catr[facility]ito [facility] [place] Diastolic (mm Hg) 2023-01-18 14:50:00 [facility] Heart Rate 2023-01-18 14:50:00 [facility] Systolic (mm Hg) 2023-01-05 21:10:00 [facility] Diastolic (mm Hg) 2023-01-05 21:10:00 [facility] [place] Heart Rate 2023-01-05 21:10:00 [facility] Height 2023-01-05 21:10:00 5 [ft_i] [facility] Weight 2023-01-05 21:10:00 [facility] BMI Calculated 2023-01-05 21:10:00 [facility] Systolic (mm Hg) 2022-12-31 14:00:00 [facility] Diastolic (mm Hg) 2022-12-31 14:00:00 [facility] Heart Rate 2022-12-31 14:00:00 [facility] Height 2022-12-31 14:00:00 5 [ft_i] [facility] Weight 2022-12-31 14:00:00 [facility] BMI Calculated 2022-12-31 14:00:00 [facility] Systolic (mm Hg) 2021-12-10 16:42:00 [facility] [place] Diastolic (mm Hg) 2021-12-10 16:42:00 [facility] [place] Heart Rate 2021-12-10 16:42:00 [facility] Respitory Rate 2021-12-10 16:42:00 [facility] Height 2021-12-10 16:42:00 154.94 cm [facility] Weight 2021-12-10 16:42:00 [facility] BMI Calculated 2021-12-10 16:42:00 [facility] Systolic (mm Hg) 2021-11-20 16:03:00 [facility] [place] Diastolic (mm Hg) 2021-11-20 16:03:00 [facility] Heart Rate 2021-11-20 16:03:00 [facility] Respitory Rate 2021-11-20 16:03:00 [facility] Height 2021-11-20 16:03:00 156.21 cm [facility] Weight 2021-11-20 16:03:00 [facility] BMI Calculated 2021-11-20 16:03:00 [facility] [place] Systolic (mm Hg) 2021-10-21 15:52:00 [facility] Diastolic (mm Hg) 2021-10-21 15:52:00 [facility] Heart Rate 2021-10-21 15:52:00 [facility] Respitory Rate 2021-10-21 15:52:00 [facility] Height 2021-10-21 15:52:00 154.94 cm [facility] Weight 2021-10-21 15:52:00 [facility] BMI Calculated 2021-10-21 15:52:00 [facility] Systolic (mm Hg) 2021-09-08 15:56:00 [facility] [place] Diastolic (mm Hg) 2021-09-08 15:56:00 [facility] Heart Rate 2021-09-08 15:56:00 [facility] Respitory Rate 2021-09-08 15:56:00 [facility] Height 2021-09-08 15:56:00 154.94 cm [facility] Weight 2021-09-08 15:56:00 [facility] BMI Calculated 2021-09-08 15:56:00 [facility] Systolic (mm Hg) 2021-07-28 16:02:00 Cat[facility] [place] Diastolic (mm Hg) 2021-07-28 16:02:00 [facility] Heart Rate 2021-07-28 16:02:00 [facility] Respitory Rate 2021-07-28 16:02:00 [facility] Height 2021-07-28 16:02:00 154.94 cm [facility] Weight 2021-07-28 16:02:00 [facility] BMI Calculated 2021-07-28 16:02:00 [facility] Systolic (mm Hg) 2021-07-14 18:06:00 Catr[facility]ito [facility] [place] Diastolic (mm Hg) 2021-07-14 18:06:00 [facility] Heart Rate 2021-07-14 18:06:00 [facility] Respitory Rate 2021-07-14 18:06:00 [facility] Temperature Oral (F) 2021-07-14 18:06:00 98.6 F [facility] Height 2021-07-14 18:06:00 154.94 cm [facility] Weight 2021-07-14 18:06:00 [facility] BMI Calculated 2021-07-14 18:06:00 [facility] Systolic (mm Hg) 2021-06-29 16:09:00 Catr[facility]ito [facility] [place] Diastolic (mm Hg) 2021-06-29 16:09:00 [facility] Heart Rate 2021-06-29 16:09:00 [facility] Respitory Rate 2021-06-29 16:09:00 [facility] Height 2021-06-29 16:09:00 154.94 cm [facility] Weight 2021-06-29 16:09:00 [facility] BMI Calculated 2021-06-29 16:09:00 [facility] Systolic (mm Hg) 2021-06-05 15:14:00 [facility] [place] Diastolic (mm Hg) 2021-06-05 15:14:00 [facility] [place] Respitory Rate 2021-06-05 15:14:00 [facility] Height 2021-06-05 15:14:00 152.4 cm [facility] Weight 2021-06-05 15:14:00 [facility] BMI Calculated 2021-06-05 15:14:00 [facility] Systolic (mm Hg) 2021-05-20 15:44:00 [facility] [place] Diastolic (mm Hg) 2021-05-20 15:44:00 [facility] Heart Rate 2021-05-20 15:44:00 [facility] Respitory Rate 2021-05-20 15:44:00 [facility] Height 2021-05-20 15:44:00 154.94 cm [facility] Weight 2021-05-20 15:44:00 [facility] BMI Calculated 2021-05-20 15:44:00 [facility] Systolic (mm Hg) 2021-04-28 18:49:00 [facility] [place] Diastolic (mm Hg) 2021-04-28 18:49:00 [facility] Heart Rate 2021-04-28 18:49:00 [facility] Respitory Rate 2021-04-28 18:49:00 [facility] Height 2021-04-28 18:49:00 154.94 cm [facility] Weight 2021-04-28 18:49:00 [facility] BMI Calculated 2021-04-28 18:49:00 [facility] Systolic (mm Hg) 2021-04-21 20:09:00 [facility] [place] Diastolic (mm Hg) 2021-04-21 20:09:00 [facility] Heart Rate 2021-04-21 20:09:00 [facility] Respitory Rate 2021-04-21 20:09:00 [facility] Temperature Oral (F) 2021-04-21 20:09:00 98.4 F [facility] Height 2021-04-21 20:09:00 154.94 cm [facility] Weight 2021-04-21 20:09:00 [facility] BMI Calculated 2021-04-21 20:09:00 [facility] Systolic (mm Hg) 2020-12-17 19:42:00 [facility] [place] Diastolic (mm Hg) 2020-12-17 19:42:00 [facility] Heart Rate 2020-12-17 19:42:00 [facility] Temperature Oral (F) 2020-12-17 19:42:00 98.7 F [facility] Height 2020-12-17 19:42:00 154.94 cm [facility] Weight 2020-12-17 19:42:00 [facility] BMI Calculated 2020-12-17 19:42:00 [facility] [place] Systolic (mm Hg) 2020-10-22 19:39:00 [facility] [place] Diastolic (mm Hg) 2020-10-22 19:39:00 [facility] Heart Rate 2020-10-22 19:39:00 [facility] Temperature Oral (F) 2020-10-22 19:39:00 98.6 F [facility] Height 2020-10-22 19:39:00 154.94 cm [facility] Weight 2020-10-22 19:39:00 [facility] BMI Calculated 2020-10-22 19:39:00 [facility] Systolic (mm Hg) 2020-07-10 15:07:00 [facility] [place] Diastolic (mm Hg) 2020-07-10 15:07:00 [facility] Heart Rate 2020-07-10 15:07:00 [facility] Respitory Rate 2020-07-10 15:07:00 [facility] Height 2020-07-10 15:07:00 157.48 cm [facility] Weight 2020-07-10 15:07:00 [facility] BMI Calculated 2020-07-10 15:07:00 [facility] Systolic (mm Hg) 2020-06-03 15:17:00 [facility] [place] Diastolic (mm Hg) 2020-06-03 15:17:00 [facility] [place] Heart Rate 2020-06-03 15:17:00 [facility] Temperature Oral (F) 2020-06-03 15:17:00 98.6 F [facility] Height 2020-06-03 15:17:00 154.94 cm [facility] Weight 2020-06-03 15:17:00 [facility] BMI Calculated 2020-06-03 15:17:00 [facility] Systolic (mm Hg) 2019-08-07 20:05:00 [facility] [place] Diastolic (mm Hg) 2019-08-07 20:05:00 [facility] [place] Heart Rate 2019-08-07 20:05:00 [facility] Temperature Oral (F) 2019-08-07 20:05:00 97.9 F [facility] Height 2019-08-07 20:05:00 154.94 cm [facility] Weight 2019-08-07 20:05:00 [facility] BMI Calculated 2019-08-07 20:05:00 [facility] [place] Systolic (mm Hg) 2019-06-04 20:25:00 [facility] Diastolic (mm Hg) 2019-06-04 20:25:00 [facility] Heart Rate 2019-06-04 20:25:00 [facility] Temperature Oral (F) 2019-06-04 20:25:00 98.1 F [facility] Height 2019-06-04 20:25:00 154.94 cm [facility] Weight 2019-06-04 20:25:00 [facility] BMI Calculated 2019-06-04 20:25:00 [facility] Height 2019-03-05 19:23:00 154.94 cm [facility] Weight 2019-03-05 19:23:00 [facility] BMI Calculated 2019-03-05 19:23:00 [facility] [place] Systolic (mm Hg) 2019-03-05 19:23:00 [facility] [place] Diastolic (mm Hg) 2019-03-05 19:23:00 [facility] Respitory Rate 2019-03-05 19:23:00 [facility] [place] Temperature Oral (F) 2019-03-05 19:23:00 98.3 F [facility] Heart Rate 2019-03-05 19:23:00 [facility] BMI Calculated 2019-02-08 18:32:00 [facility] Weight 2019-02-08 18:32:00 [facility] Heart Rate 2019-02-08 18:32:00 [facility] Systolic (mm Hg) 2019-02-08 18:32:00 Cat[facility]ito [facility] [place] Diastolic (mm Hg) 2019-02-08 18:32:00 [facility] [place] Respitory Rate 2019-02-08 18:32:00 [facility] Temperature Oral (F) 2019-02-08 18:32:00 98.2 F [facility] Height 2019-02-08 18:32:00 154.94 cm [facility] Height 2018-03-06 16:25:00 154.94 cm [facility] Weight 2018-03-06 16:25:00 [facility] BMI Calculated 2018-03-06 16:25:00 [facility] [place] Systolic (mm Hg) 2018-03-06 16:25:00 [facility] [place] Diastolic (mm Hg) 2018-03-06 16:25:00 [facility] Temperature Oral (F) 2018-03-06 16:25:00 98.2 F [facility] Heart Rate 2018-03-06 16:25:00 [facility] Weight 2018-02-23 12:40:00 [facility] BMI Calculated 2018-02-23 12:40:00 [facility] Height 2018-02-23 12:40:00 154.94 cm [facility] Heart Rate 2018-02-23 12:40:00 [facility] Temperature Oral (F) 2018-02-23 12:40:00 98.2 F [facility] Systolic (mm Hg) 2018-02-23 12:40:00 [facility] [place] Diastolic (mm Hg) 2018-02-23 12:40:00 [facility] [place] Systolic (mm Hg) 2017-11-21 20:45:00 [facility] [place] Diastolic (mm Hg) 2017-11-21 20:45:00 [facility] [place] Respitory Rate 2017-11-21 20:45:00 [facility] [place] Heart Rate 2017-11-21 20:45:00 [facility] BMI Calculated 2017-11-21 20:45:00 [facility] [place] Weight 2017-11-21 20:45:00 [facility] Temperature Oral (F) 2017-11-21 20:45:00 98.0 F [facility] Height 2017-11-21 20:45:00 157.48 cm [facility] BMI Calculated 2017-07-25 22:18:00 Madina page [facility] Height 2017-07-25 22:18:00 154.94 cm [facility] Systolic (mm Hg) 2017-07-25 22:18:00 Catrachito My[facility]ann Diastolic (mm Hg) 2017-07-25 22:18:00 [facility] [place] Temperature Oral (F) 2017-07-25 22:18:00 98 F [facility] Weight 2017-07-25 22:18:00 [facility] [place] Heart Rate 2017-07-25 22:18:00 [facility] Procedures Procedure Date / Time Performing Clinician Source Performed [id number] 2023-02-24 00:00:00 [facility] [id number] 2023-02-24 00:00:00 [facility] [id number] 2023-02-24 00:00:00 [facility] [id number] 2023-02-24 00:00:00 [facility] [id number] 2023-02-24 00:00:00 [facility] [id number] 2023-02-24 00:00:00 [facility] [id number] 2023-02-24 00:00:00 [facility] [id number] 2023-02-24 00:00:00 [facility] MEDICAL RELEASE/CLEARANCE 2023-02-18 05:01:00 Doctor Unaandrey, [facility] FORMS [facility] AUTHORIZATION FOR RELEASE 2023-01-19 05:01:00 Doctor Unassigned, [facility] OF [facility] INDIVIDUAL CARDIAC 2022-09-13 20:43:00 Doctor Jareth [facility] TREATMENT PLAN [facility] POCT GLUCOSE (AUTOMATED) 2022-08-30 14:05:00 Krissy Rodriguez [facility] POCT GLUCOSE (AUTOMATED) 2022-08-27 14:42:00 Krissy Rodriguez [facility] CARDIAC REHAB SESSION 2022-08-27 06:00:00 Doctor Unassigned, [facility] [place] REPORT [facility] POCT GLUCOSE (AUTOMATED) 2022-08-23 14:52:00 Krissy Rodriguez [facility] [place] [facility] POCT GLUCOSE (AUTOMATED) 2022-08-17 14:55:00 Krissy Rodriguez [facility] CARDIAC REHAB SESSION 2022-08-17 06:00:00 Doctor Unassigned, [facility] [place] REPORT [facility] POCT GLUCOSE (AUTOMATED) 2022-08-16 15:00:00 Krissy Rodriguez [facility] [place] [facility] POCT GLUCOSE (AUTOMATED) 2022-08-12 14:52:00 Krissy Rodriguez [facility] POCT GLUCOSE (AUTOMATED) 2022-08-11 14:56:00 Krissy Rodriguez [facility] [place] [facility] POCT GLUCOSE (AUTOMATED) 2022-08-10 14:42:00 Krissy Rodriguez [facility] POCT GLUCOSE (AUTOMATED) 2022-08-09 14:59:00 Krissy Rodriguez [facility] POCT GLUCOSE (AUTOMATED) 2022-08-04 15:03:00 Krissy Rodriguez [facility] [place] [facility] CARDIAC REHAB SESSION 2022-08-04 06:00:00 Doctor Unassigned, [facility] [place] RE[facility] POCT GLUCOSE (AUTOMATED) 2022-08-03 14:15:00 Krissy Rodriguez [facility] [place] [facility] CARDIAC REHAB SESSION 2022-08-03 06:00:00 Doctor Unassigned, [facility] [place] REPORT [facility] POCT GLUCOSE (AUTOMATED) 2022-08-02 14:57:00 Krissy Rodriguez [facility] CARDIAC REHAB SESSION 2022-08-02 06:00:00 Doctor Unassigned, [facility] [place] REPORT [facility] POCT GLUCOSE (AUTOMATED) 2022-07-29 14:06:00 Krissy Rodriguez [facility] CARDIAC REHAB SESSION 2022-07-29 06:00:00 Doctor Unassigned, [facility] [place] REPORT [facility] INDIVIDUAL CARDIAC 2022-07-28 20:48:00 Doctor UnassignedJw [facility] TREATMENT PLAN [facility] POCT GLUCOSE (AUTOMATED) 2022-07-28 14:50:00 Krissy Rodriguez [facility] POCT GLUCOSE (AUTOMATED) 2022-07-26 14:59:00 MichaelKrissy [facility] CARDIAC REHAB SESSION 2022-07-26 06:00:00 Doctor Unassigned, [facility] [place] RE[facility] POCT GLUCOSE (AUTOMATED) 2022-07-23 14:53:00 MichaelKrissy [facility] POCT GLUCOSE (AUTOMATED) 2022-07-21 14:58:00 Michael, Krissy [facility] POCT GLUCOSE (AUTOMATED) 2022-07-19 15:05:00 MichaelKrissy [facility] CARDIAC REHAB SESSION 2022-07-19 06:00:00 Doctor Unassigned, [facility] [place] REPORT [facility] POCT GLUCOSE (AUTOMATED) 2022-07-16 13:58:00 MichaelKrissy [facility] POCT GLUCOSE (AUTOMATED) 2022-07-14 20:42:00 Michael, Krissy [facility] POCT GLUCOSE (AUTOMATED) 2022-07-12 15:41:00 MichaelKrissy [facility] POCT GLUCOSE (AUTOMATED) 2022-07-09 13:59:00 Krissy Rodriguez [facility] CARDIAC REHAB SESSION 2022-07-09 05:00:00 Doctor Unassigned, [facility] [place] REPORT [facility] POCT GLUCOSE (AUTOMATED) 2022-07-07 14:02:00 MichaelKrissy [facility] POCT GLUCOSE (AUTOMATED) 2022-07-05 14:26:00 Krissy Rodriguez [facility] OUTPATIENT CARDIAC REHAB 2022-07-04 05:01:00 Doctor Unassigned, [facility] INTAKE [facility] OUTPATIENT CARDIAC REHAB 2022-07-01 05:01:00 Doctor Unassigned, [facility] INTAKE [facility] ASSIGNMENT OF BENEFITS 2022-06-30 18:17:43 Doctor Unassigned, Un [facility] POCT GLUCOSE (AUTOMATED) 2022-06-01 19:52:00 [facility] 2022-06-01 16:53:00 [facility] ([facility]OMATED) 2022-06-01 16:53:00 [facility] (AUTOMATED) 2022-06-01 13:47:00 Aiden Prado Yue versity [facility] POCT GLUCOSE (AUTOMATED) 2022-06-01 13:47:00 Aiden Prado Yue [facility] MAGNESIUM 2022-06-01 09:30:00 Layla Carcamo [facility] BASIC METABOLIC PANEL (NA, 2022-06-01 09:30:00 [facility], CO2, GLUCOSE, BUN, Medica l Branch CREATININE, CA) CBC WITH DIFF 2022-06-01 09:30:00 Layla Carcamo [facility] MAGNESIUM 2022-06-01 09:30:00 Layla Carcamo [facility] BASIC METABOLIC PANEL (NA, 2022-06-01 09:30:00 [facility] [place] [facility], CL, CO2, GLUCOSE, BUN, Medica l Branch CREATININE, CA) CBC WITH DIFF 2022-06-01 09:30:00 Layla Carcamo [facility] ACTIVATED PARTIAL THRMPLAS 2022-06-01 04:50:00 Moreira, Sendrichard [facility] ACTIVATED PARTIAL THRMPLAS 2022-06-01 04:50:00 Moreira, Sendrichard [facility] POCT GLUCOSE (AUTOMATED) 2022-06-01 02:25:00 Aiden Prado Yue versity [facility] POCT GLUCOSE (AUTOMATED) 2022-06-01 02:25:00 [facility] 2022-05-31 20:25:16 Aiden Prado [facility] CARDIAC CATHETERIZATION 2022-05-31 20:25:16 Eve [facility] CARDIAC CATHETERIZATION 2022-05-31 20:25:16 Eve [facility] CARDIAC CATHETERIZATION 2022-05-31 20:25:16 Eve [facility] CARDIAC CATHETERIZATION 2022-05-31 20:25:16 Eve [facility] CARDIAC CATHETERIZATION 2022-05-31 20:25:16 Eve [facility] POCT ACT LOW RANGE 2022-05-31 20:17:00 Eve [facility] POCT ACT LOW RANGE 2022-05-31 20:17:00 Eve [facility] POCT ACT LOW RANGE 2022-05-31 20:06:00 [facility] POCT ACT LOW RANGE 2022-05-31 20:06:00 Eve terry [facility] CATH PROCEDURE LOG 2022-05-31 18:57:12 [facility] CATH PROCEDURE LOG 2022-05-31 18:57:12 [facility] POCT GLUCOSE (AUTOMATED) 2022-05-31 16:41:00 Aiden Prado [facility] POCT GLUCOSE (AUTOMATED) 2022-05-31 16:41:00 Aiden Prado [facility] POCT GLUCOSE (AUTOMATED) 2022-05-31 12:44:00 Aiden Prado [facility] POCT GLUCOSE (AUTOMATED) 2022-05-31 12:44:00 Aiden Prado [facility] MAGNESIUM 2022-05-31 09:44:00 Alice Chua o f [facility] BASIC METABOLIC PANEL (NA, 2022-05-31 09:44:00 Alice Chua [facility] K, CL, CO2, GLUCOSE, BUN, Medica l Branch CREATININE, CA) CBC WITH DIFF 2022-05-31 09:44:00 [facility] MAGNESIUM 2022-05-31 09:44:00 [facility] BASIC METABOLIC PANEL (NA, 2022-05-31 09:44:00 [facility] [place] K, CL, CO2, GLUCOSE, BUN, Medica l Branch CREATININE, CA) CBC WITH DIFF 2022-05-31 09:44:00 [facility] POCT GLUCOSE (AUTOMATED) 2022-05-31 02:03:00 Aiden Prado [facility] POCT GLUCOSE (AUTOMATED) 2022-05-31 02:03:00 [facility] ([facility]OMATED) 2022-05-30 22:34:00 Aiden Prado [facility] POCT GLUCOSE (AUTOMATED) 2022-05-30 22:34:00 [facility] ([facility]OMATED) 2022-05-30 17:42:00 Aiden Prado [facility]SE (AUTOMATED) 2022-05-30 17:42:00 [facility] PO[facility]SE (AUTOMATED) 2022-05-30 14:02:00 Aiden Prado [facility] POCT GLUCOSE (AUTOMATED) 2022-05-30 14:02:00 Aiden Prado [facility] MAGNESIUM 2022-05-30 08:44:00 [facility] BASIC METABOLIC PANEL (NA, 2022-05-30 08:44:00 [facility] [place] [facility], CL, CO2, GLUCOSE, BUN, Medica l Branch CREATININE, CA) CBC WITH DIFF 2022-05-30 08:44:00 [facility] MAGNESIUM 2022-05-30 08:44:00 [facility] BASIC METABOLIC PANEL (NA, 2022-05-30 08:44:00 Alice Chua [facility] [place] K, CL, CO2, GLUCOSE, BUN, Medica l Branch CREATININE, CA) CBC WITH DIFF 2022-05-30 08:44:00 [facility] POCT GLUCOSE (AUTOMATED) 2022-05-30 02:17:00 Aiden Prado [facility] POCT GLUCOSE (AUTOMATED) 2022-05-30 02:17:00 Aiden Prado [facility] POCT GLUCOSE (AUTOMATED) 2022-05-29 23:27:00 Aiden Prado [facility] POCT GLUCOSE (AUTOMATED) 2022-05-29 23:27:00 Aiden Prado [facility] POCT GLUCOSE (AUTOMATED) 2022-05-29 18:04:00 Aiden Prado [facility] POCT GLUCOSE (AUTOMATED) 2022-05-29 18:04:00 Aiden Prado [facility] CBC WITH DIFF 2022-05-29 17:58:00 [facility] CBC WITH DIFF 2022-05-29 17:58:00 [facility] MAGNESIUM 2022-05-29 14:12:00 [facility] BASIC METABOLIC PANEL (NA, 2022-05-29 14:12:00 Alice Ch[facility] [place] K, CL, CO2, GLUCOSE, BUN, Medica l Branch CREATININE, CA) ACTIVATED PARTIAL THRMPLAS 2022-05-29 14:12:00 Misael Moreira [facility] MAGNESIUM 2022-05-29 14:12:00 [facility] BASIC METABOLIC PANEL (NA, 2022-05-29 14:12:00 Alice Chua [facility] [place] K, CL, CO2, GLUCOSE, BUN, Medica l Branch CREATININE, CA) ACTIVATED PARTIAL THRMPLAS 2022-05-29 14:12:00 Misael Moreira [facility] POCT GLUCOSE (AUTOMATED) 2022-05-29 13:43:00 Aiden Prado [facility] POCT GLUCOSE (AUTOMATED) 2022-05-29 13:43:00 Aiden Prado [facility] ACTIVATED PARTIAL THRMPLAS 2022-05-29 06:45:00 Misael Moreira [facility] ACTIVATED PARTIAL THRMPLAS 2022-05-29 06:45:00 Misael Moreira [facility] POCT GLUCOSE (AUTOMATED) 2022-05-29 01:11:00 Aiden Prado [facility] POCT GLUCOSE (AUTOMATED) 2022-05-29 01:11:00 Aiden Prado [facility] ACTIVATED PARTIAL THRMPLAS 2022-05-28 21:09:00 Kaila Chaves [facility] ACTIVATED PARTIAL THRMPLAS 2022-05-28 21:09:00 Kaila Chaves [facility] TROPONIN I 2022-05-28 17:37:00 Angelina bunny [facility] TROPONIN I 2022-05-28 17:37:00 Angelina bunny [facility] PROTHROMBIN TIME / INR 2022-05-28 15:10:00 Misael Moreira[facility] ACTIVATED PARTIAL THRMPLAS 2022-05-28 15:10:00 Misael Moreira. [facility]. [facility] PROTHROMBIN TIME / INR 2022-05-28 15:10:00 Misael Moreira [facility] ACTIVATED PARTIAL THRMPLAS 2022-05-28 15:10:00 Misael Moreira [facility] TRANSTHORACIC ECHO (TTE) 2022-05-28 13:42:00 Saad Alfaro [facility] TRANSTHORACIC ECHO (TTE) 2022-05-28 13:42:00 Saad Alfaro [facility] MAGNESIUM 2022-05-28 09:48:00 Angelina bunny [facility] TROPONIN I 2022-05-28 09:48:00 Angelina bunny [facility] COMP. METABOLIC PANEL 2022-05-28 09:48:00 Saad Alfaro [facility] ([id number]) [facility] CBC WITH DIFF 2022-05-28 09:48:00 Angelina [facility] GLYCOSYLATED HEMOGLOBIN 2022-05-28 09:48:00 Kaila Chaves [facility] Medical Branch MAGNESIUM 2022-05-28 09:48:00 Angelina [facility] TROPONIN I 2022-05-28 09:48:00 Angelina bunny [facility] COMP. METABOLIC PANEL 2022-05-28 09:48:00 Angelina bunny [facility] ([id number]) [facility] CBC WITH DIFF 2022-05-28 09:48:00 Angelina bunny [facility] GLYCOSYLATED HEMOGLOBIN 2022-05-28 09:48:00 Kaila Chaves [facility] ([facility]) Medical [facility] PHOSPHORUS 2022-05-28 05:09:00 Angelina bunyn [facility] FERRITIN SERUM 2022-05-28 05:09:00 Angel[facility] VITAMIN [id number], LEVEL 2022-05-28 05:09:00 Saad Alfaro [facility] TROPONIN I 2022-05-28 05:09:00 Angelina bunny [facility] THYROID STIMULATING 2022-05-28 05:09:00 Saad Alfaro [facility] HORMONE [facility] Branch LIPID PANEL ([id number])(TOTAL 2022-05-28 05:09:00 Saad Alfaro [facility] TRIGLYCERID[facility], HDL) IRON PANEL 2022-05-28 05:09:00 Angelina bunny [facility] SEDIMENTATION RATE 2022-05-28 05:09:00 Angelina bunny [facility] N-TERMINAL PRO-BNP 2022-05-28 05:09:00 Angelina bunny [facility] VITAMIN D, 25-OH 2022-05-28 05:09:00 Angelina [facility] PROCALCITONIN 2022-05-28 05:09:00 Angelina bunny [facility] PHOSPHORUS 2022-05-28 05:09:00 Angelina [facility] FERRITIN SERUM 2022-05-28 05:09:00 Angelina [facility] VITAMIN B12, LEVEL 2022-05-28 05:09:00 Angelina [facility] TROPONIN I 2022-05-28 05:09:00 Angelina [facility] THYROID STIMULATING 2022-05-28 05:09:00 Angelina bunny [facility] HORMONE [facility] LIPID PANEL ([id number])(TOTAL 2022-05-28 05:09:00 Saad Alfaro [facility] CHOLESTEROL, [facility] TRIGLYCERIDES, HDL) IRON PANEL 2022-05-28 05:09:00 Angelina bunny [facility] SEDIMENTATION RATE 2022-05-28 05:09:00 Angelina [facility] N-TERMINAL PRO-BNP 2022-05-28 05:09:00 Angelina [facility] VITAMIN D, 25-OH 2022-05-28 05:09:00 Angelina [facility] PROCALCITONIN 2022-05-28 05:09:00 Angelina bunny [facility] COVID-19 (ID NOW RAPID 2022-05-28 00:08:00 Reba Mckeon [facility] TESTING) Medical Branch LAB ONLY COVID 2022-05-28 00:08:00 Reba Mckeon [facility] INTERPRETATION Medical Branch COVID-19 (ID NOW RAPID 2022-05-28 00:08:00 Reba Mckeon [facility] TESTING) Medical Branch LAB ONLY COVID 2022-05-28 00:08:00 Reba Mckeon [facility] INTERPRETATION Medical Branch LIPASE 2022-05-27 23:22:00 Irwin Ramos [facility] MAGNESIUM 2022-05-27 23:22:00 Singer [facility] TROPONIN I 2022-05-27 23:22:00 Singer [facility] COMP. METABOLIC PANEL 2022-05-27 23:22:00 Irwin Ramos [facility] ([id number]) Medical Branch DIFF CONSULT 2022-05-27 23:22:00 Saad Alfaro [facility] CBC WITH DIFF 2022-05-27 23:22:00 Singer [facility] GLYCOSYLATED HEMOGLOBIN 2022-05-27 23:22:00 Angelina bunny [facility] ([facility]) [facility] PROTHROMBIN TIME / INR 2022-05-27 23:22:00 Irwin Ramos [facility] ACTIVATED PARTIAL THRMPLAS 2022-05-27 23:22:00 Irwin Ramos [facility] LIPASE 2022-05-27 23:22:00 Singer [facility] MAGNESIUM 2022-05-27 23:22:00 Singer [facility] TROPONIN I 2022-05-27 23:22:00 Singer [facility] COMP. METABOLIC PANEL 2022-05-27 23:22:00 Irwin Ramos [facility] ([id number]) [facility] DIFF CONSULT 2022-05-27 23:22:00 Angelina bunny [facility] CBC WITH DIFF 2022-05-27 23:22:00 Singer [facility] GLYCOSYLATED HEMOGLOBIN 2022-05-27 23:22:00 Angelina bunny [facility] ([facility]) [facility] [place] PROTHROMBIN TIME / INR 2022-05-27 23:22:00 Irwin Ramos [facility] ACTIVATED PARTIAL THRMPLAS 2022-05-27 23:22:00 Irwin Ramos [facility] XR CHEST 1 VW 2022-05-27 23:18:00 Singer [facility] XR CHEST 1 VW 2022-05-27 23:18:00 Ramos, [facility] HB ECG ROUTINE & RHYTHM 2022-05-27 22:58:[facility] RHYTHM 2022-05-27 22:58:18 [facility] NOTICE OF PRIVACY 2022-05-27 22:50:07 Doctor Unassigned, [facility] [place] [facility] [place] NOTICE OF PRIVACY 2022-05-27 22:50:07 Doctor Unassigned, [facility] [place] [facility] [place] CONSENT/REFUSAL FOR 2022-05-27 22:49:29 Doctor Unaandrey, [facility]REFUS[facility] FOR 2022-05-27 22:49:29 Doctor Unassbreanna, [facility] 2022-05-27 05:01:00 Doctor Unaandrey [facility] [place] [facility] [place] HOSPITAL ADMISSION 2022-05-27 05:01:00 Doctor Jareth [facility] Knee replacement 2018-10-13 00:00:00 Madan montoya Bariatric operative 2015-09-12 00:00:00 Madan Easton procedure Repair of meniscus 2008-09-12 06:00:00 Madan Easton Fusion of joint of 2007-09-12 00:00:00 Madan Easton cervical spine with internal fixation by posterior approach Stent placement Madan Easton Encounters Start End Encounter Admission Attending Care Care Encounter Source Date/Time Date/Time Type Type Clinicians Facility Department ID 2023-02-24 2023-02-25 Inpatient ZURDO David, [facility] MEDI.01 [id number] [facility] 10:29:00 12:19:00 Steven Hernandez [facility] 2023-02-21 2023-02-21 Telephone BRYCE Luna [id number] [facility] 00:00:00 00:00:00 Luiza CAST 350.1.13.10 i ty of [place] 4.2.7.2.686 David KNUTSON [id number] Oh dical NAL 059 [facility] 2023-02-18 2023-02-18 Telephone Jeremy, [facility] [id number] Univers 00:00:00 00:00:00 Luiza CAST 350.1.13.10 i ty [place] [id number] [place] [id number] [facility] 2023-02-18 2023-02-18 Orders Doctor KOLE 1.2.840.114 [id number] Univers 00:00:00 00:00:00 Only Unassigned, JACKELYN 350.1.13.10 ity of [place] [facility] 4.2.7.2.686 Jimmy as [phone] [address] 2023-01-26 2023-01-28 Outside MHIE MNA [id number] Memoria 13:49:37 04:59:59 Medical Neurology 29 l [facility] 2023-01-26 2023-01-28 Outside MHIE MNA [id number] Memoria 13:49:37 04:59:59 Medical Neurology 29 l Records Lefty [place] 2023-01-26 2023-01-27 Outpatient MHMISCHER MHMISCHER [id number] 08:49:37 23:59:59 29 2023-01-20 2023-01-22 Outside MHIE MNA [id number] Memoria 18:02:19 04:59:59 Medical Neurology 28 l Records Lefty [place] 2023-01-20 2023-01-22 Outside MHIE MNA [id number] Memoria 18:02:19 04:59:59 Medical Neurology 28 l Records Lefty [place] 2023-01-20 2023-01-21 Outpatient MHMISCHER MHMISCHER [id number] 13:02:19 23:59:59 28 2023-01-19 2023-01-19 Ambulatory MHIE MNA [id number] Memoria 14:45:00 14:45:00 Pre-Reg Neurology 37 l Trentlexii Mylesann 2023-01-19 2023-01-19 Ambulatory MHIE MNA [id number] Memoria 14:45:00 14:45:00 Pre-Reg Neurology 37 l Trent [place] 2023-01-19 2023-01-19 Outpatient MHIE MHIE [id number] Memoria 09:45:00 09:45:00 37 cheryle Easton 2023-01-19 2023-01-19 Outpatient RAYNE AmbrocioSCHER MHBERTHASCHER [id number] 09:45:00 09:45:00 Jacky 37 Ziggy 2023-01-18 2023-01-19 Outpatient MHIE MNA [id number] Memoria 15:00:00 04:59:59 Neurology 38 l Lefty Easton 2023-01-18 2023-01-19 Outpatient MHIE MNA [id number] Memoria 15:00:00 04:59:59 Neurology 38 l Trent Rustam 2023-01-19 2023-01-19 Orders Doctor KOLE 1.2.840.114 [id number] Univers 00:00:00 00:00:00 Only Unassigned, JACKELYN 350.1.13.10 ity of [facility] 4.2.7.2.686 Jimmy as [phone] [address] 2023-01-18 2023-01-18 Outpatient RAYNE AmbrocioSCHER MHMISCHER [id number] 10:00:00 23:59:59 Jacky 38 [facility] 2023-01-18 2023-01-18 Outpatient R JEREMY [facility] [id number] Univers 13:00:00 14:23:26 LUIZA ity of [facility] 2023-01-18 2023-01-18 Office [facility] 1.2.840.114 [id number] Univers 13:00:00 14:23:26 Visit Luiza Cheryle CAST 350.1.13.10 i ty [facility] 4.2.7.2.[place] [phone] [place] [id number] [facility] 2023-01-18 2023-01-18 Outpatient MHIE MHIE [id number] Memoria 10:00:00 10:00:00 38 cheryle Rustam 2023-01-15 2023-01-16 Outpt Diag MHIE [facility] [id number] Memoria 18:40:00 04:59:00 Services Outpatient 04 l Rima Rustam [place] 2023-01-15 2023-01-16 Outpt Diag MHIE [facility] [id number] Memoria 18:40:00 04:59:00 Services Outpatient 04 cheryle Em 2023-01-15 2023-01-15 Outpatient MADONNA AmbrocioOIP MHOIP [id number] 13:40:00 23:59:00 Jacky 04 Ziggy 2023-01-11 2023-01-12 Outpt Diag MHIE [facility] [id number] Memoria 20:52:00 04:59:00 Services Outpatient 03 cheryle Em 2023-01-11 2023-01-12 Outpt Diag MHIE [facility] [id number] Memoria 20:52:00 04:59:00 Services Outpatient 03 cheryle Em 2023-01-11 2023-01-11 Outpatient MADONNA AmbrocioCHRISP OIP [id number] 15:52:00 23:59:00 Jacky 03 Ziggy 2023-01-05 2023-01-06 Outpatient MHIE MNA [id number] Memoria 21:15:00 04:59:59 Neurology 36 l Lefty Easton 2023-01-05 2023-01-06 Outpatient MHIE MNA [id number] Memoria 21:15:00 04:59:59 Neurology 36 l Lefty Easton 2023-01-05 2023-01-05 Outpatient RAYNE AmbrocioSCHLUIZ MHMISCHER [id number] 16:15:00 23:59:59 Jacky 36 Ziggy 2023-01-05 2023-01-05 Outpatient MHIE MHIE [id number] Memoria 16:15:00 16:15:00 36 l Rustam 2022-12-31 2023-01-01 Outpatient MHIE MNA [id number] Memoria 14:00:00 04:59:59 Neurology 35 l Lefty Easton 2022-12-31 2023-01-01 Outpatient MHIE MNA [id number] Memoria 14:00:00 04:59:59 Neurology 35 l Lefty Easton 2022-12-31 2022-12-31 Outpatient MADONNA AmbrocioMISCHER MHMISCHER [id number] 09:00:00 23:59:59 Jacky 35 Ziggy 2022-12-31 2022-12-[address] [facility] [id number] Memoria 09:00:00 09:00:00 35 l Rustam 2022-11-01 2022-11-01 Outpatient R JEREMY, [facility] [id number] Univers 13:00:00 13:00:00 LUIZA ity [facility] 2022-09-16 2022-09-16 Outpatient R LOUISA BATRES [facility] [id number] Univers 10:30:00 10:30:00 LOUISA BATRES i ty [facility] 2022-09-13 2022-09-13 [facility] [id number] Univers 09:00:00 09:00:00 KRISSY spring o [facility] 2022-09-13 2022-09-13 Orders Doctor SHARIF 1.2.840.114 [id number] Univers 00:00:00 00:00:00 Only Unassigned, JACKELYN 350.1.13.10 ity of [facility] 4.2.7.2.686 Jimmy as [phone] [address] 2022-08-30 2022-08-30 Manager Infrastructure Rehab, [facility] Cardiac [facility] 1.2. 840.114 [id number] Univers 09:00:00 10:04:39 Visit Krissy Rodriguez SERENE 350.1.13.10 ity of [place] [phone] Oh dical NAL 060 [facility] 2022-08-30 2022-08-30 Out[facility] [id number] Univers 09:00:00 09:00:00 KRISSY spring o f [facility] 2022-08-27 2022-08-27 Manager Infrastructure Rehab, [facility] Cardiac [facility] 1.2. 840.114 [id number] Univers 08:00:00 09:36:55 Visit Krissy Rodriguez SERENE 350.1.13.10 ity of [place] [phone] Oh dical NAL 060 [facility] 2022-08-272022-08-27 Orders Doctor KOLE 1.2.840.114 [id number] Univers 00:00:00 00:00:00 Only Unassigned, JACKELYN 350.1.13.10 ity of [place] [facility] 4.2.7.2.686 Jimmy as [phone] [address] 2022-08-23 2022-08-23 Manager Infrastructure Rehab, [facility] Cardiac [facility] 1.2. 840.114 [id number] Univers 09:00:00 09:54:16 Visit Krissy RodriguezBRITTANY 350.1.13.10 ity of [place] 4[place].7.2.[place] [phone] Oh dical NAL 0 [facility] 2022-08-17 2022-08-17 Manager Infrastructure Rehab, [facility] Cardiac [facility] 1.2. 840.114 [id number] [facility] 08:00:00 09:48:37 Visit Krissy RodriguezBRITTANY 350.1.13.10 ity of [place] [phone] Oh dical NAL 0 [facility] 2022-08-17 2022-08-17 Orders Doctor KOLE 1.2.840.114 [id number] Univers 00:00:00 00:00:00 Only Unassigned, JACKELYN 350.1.13.10 ity of [place] [facility] 4.2.7.2.686 Jimmy as [phone] [address] 2022-08-16 2022-08-16 Manager Infrastructure Rehab, [facility] Cardiac [facility] 1.2. 840.114 [id number] [facility] 09:00:00 10:00:14 Visit Krissy Rodriguez 350.1.13.10 ity of [place] 4[place].2.[place] [phone] Oh dical NAL 0 [facility] 2022-08-12 2022-08-12 Manager Infrastructure Rehab, [facility] Cardiac [facility] 1.2. 840.114 [id number] [facility] 08:00:00 09:31:10 Visit Krissy RodriguezBRITTANY 350.1.13.10 ity of [place] 4[place].2.[place] [phone] Oh dicnd NAL [address] [place] [address] 2022-08-11 2022-08-11 Manager Infrastructure Rehab, [facility] Cardiac [facility] 1.2. 840.114 [id number] Univers 09:00:00 10:02:13 Visit Krissy Rodriguez SERENE 350.1.13.10 ity [facility] 4.2.7.2.[place] [phone] [facility] NAL [address] [place] [address] 2022-08-11 2022-08-11 Outpatient R MICHAEL, [facility] [id number] Univers 09:00:00 09:00:00 KRISSY spring o f [facility] 2022-08-10 2022-08-10 Manager Infrastructure Rehab, [facility] Cardiac [facility] 1.2. 840.114 [id number] [facility] 08:00:00 09:56:29 Visit Eliza Rodriguezradhalexie SERENE 350.1.13.10 ity [facility] 4.2.[place] [phone] [facility] NAL [address] [place] [address] 2022-08-09 2022-08-09 Manager Infrastructure Rehab, [facility] Cardiac [facility] 1.2. 840.114 [id number] Univers 09:00:00 10:02:46 Visit Krissy Rodriguez SERENE 350.1.13.10 ity [facility] 4.2.[place] [phone] [facility] NAL [address] [place] [address] 2022-08-04 2022-08-04 Manager Infrastructure Rehab, [facility] Cardiac [facility] 1.2. 840.114 [id number] Univers 09:00:00 13:48:35 Visit Krissy Rodriguez SERENE 350.1.13.10 ity [facility] 4.2.[place] [phone] [facility] NAL [address] [place] [address] 2022-08-04 2022-08-04 Orders Doctor SHARIF 1.2.840.114 [id number] Univers 00:00:00 00:00:00 Only Unassigned, JACKELYN 350.1.13.10 ity of [place] [facility] 4.2.7.2.686 Jimmy as [phone] [address] 2022-08-03 2022-08-03 Manager Infrastructure Rehab, [facility] Cardiac [facility] 1.2. 840.114 [id number] Univers 08:00:00 11:44:37 Visit Krissy Rodriguez 350.1.13.10 ity of [place] 4[place] [phone] Oh dical NAL 0 [facility] 2022-08-03 2022-08-03 Orders Doctor KOLE 1.2.840.114 [id number] Univers 00:00:00 00:00:00 Only Unassigned, JACKELYN 350.1.13.10 ity of [place] [facility] 4.2.7.2.686 Jimmy as [phone] [address] 2022-08-02 2022-08-02 Manager Infrastructure Rehab, [facility] Cardiac [facility] 1.2. 840.114 [id number] [facility] 09:00:00 11:02:02 Visit Krissy Rodriguez 350.1.13.10 ity [facility] 4.[place] [phone] Oh dical NAL 0 [facility] 2022-08-02 2022-08-02 Orders Doctor SHARIF 1.2.840.114 [id number] Univers 00:00:00 00:00:00 Only Unassigned, JACKELYN 350.1.13.10 ity of [place] [facility] 4.2.7.2.686 Jimmy as [phone] [address] 2022-07-29 2022-07-29 Manager Infrastructure Rehab, [facility] Cardiac [facility] 1.2. 840.114 [id number] Univers 09:00:00 09:08:26 Visit Krissy Rodriguez 350.1.13.10 ity of [place] 4.[place].2.[place] [phone] Oh dical NAL 060 [facility] 2022-07-29 2022-07-29 Orders Doctor SHARIF 1.2.840.114 [id number] Univers 00:00:00 00:00:00 Only Unassigned, JACKELYN 350.1.13.10 ity of [place] [facility] 4.2.7.2.686 Jimmy as [phone] [address] 2022-07-28 2022-07-28 Manager Infrastructure Rehab, [facility] Cardiac [facility] 1.2. 840.114 [id number] [facility] 09:00:00 10:05:25 Visit Krissy Rodriguez 350.1.13.10 ity [facility] 4.[place] [phone] Oh dicnd NAL [address] [place] [address] 2022-07-28 2022-07-28 Orders Doctor KOLE 1.2.840.114 [id number] Univers 00:00:00 00:00:00 Only Unassigned, JACKELYN 350.1.13.10 ity of [place] [facility] 4.2.7.2.686 Jimmy as [phone] [address] 2022-07-26 2022-07-26 Manager Infrastructure Rehab, [facility] Card[facility] 1.2. 840.114 [id number] [facility] 09:00:00 10:03:56 Visit Eliza Rodriguezradhalexie SERENE 350.1.13.10 ity of [place].2.[place] [phone] Oh dicnd NAL [address] [place] [address] 2022-07-26 2022-07-26 Orders Doctor KOLE 1.2.840.[id number] [place] [address] 00:00:00 00:00:00 Only Unassigned, JACKELYN 350.1.13.10 ity of [place] [facility] 4.2.7.2.686 Jimmy as [id number] [address] 2022-07-23 2022-07-23 Manager Infrastructure Rehab, [facility] 1.2. 840.114 [id number] [facility] 09:00:00 10:44:28 Visit Krissy RodriguezBRITTANY 350.1.13.10 ity of [place] 4.[place].2.[place] [phone] Oh dicnd NAL [address] [place] [address] 2022-07-21 2022-07-21 Manager Infrastructure Rehab, [facility] Card[facility] 1.2. 840.114 [id number] [facility] 09:00:00 09:59:12 Visit Krissy Rodriguez 350.1.13.10 ity of [place] 4[place] [phone] Oh dicnd NAL 0 [facility] 2022-07-19 2022-07-19 Manager Infrastructure Rehab, [facility] Card[facility] 1.2. 840.114 [id number] Univers 09:00:00 10:14:29 Visit Krissy Rodriguez 350.1.13.10 ity of [place] [phone] [address] 2022-07-19 2022-07-19 Orders Doctor KOLE 1.2.840.[id number] [place] [address] 00:00:00 00:00:00 Only Unassigned, JACKELYN 350.1.13.10 [facility] 4.2.7.2.686 Jimmy as [phone] [address] 2022-07-16 2022-07-16 Manager Infrastructure Rehab, [facility] 1.2. 840.114 [id number] [facility] 09:00:00 10:20:30 Visit Krissy Rodriguez 350.1.13.10 ity of [place] 4[place].7.2.[place] [phone] Oh dicnd NAL [address] [place] [address] 2022-07-14 2022-07-14 Manager Infrastructure Rehab, [facility] Card[facility] 1.2. 840.114 [id number] Univers 16:15:00 16:48:44 Visit Krissy Rodriguez 350.1.13.10 ity of [place] 4.[place].7.2.[place] [phone] Oh dical NAL [address] [place] [address] 2022-07-12 2022-07-12 Manager Infrastructure Rehab, [facility] Cardiac [facility] 1.2. 840.114 [id number] Univers 09:00:00 11:56:39 Visit Krissy Rodriguez 350.1.13.10 ity of [place] 4.[place].7.2.[place] [id number] Oh dical NAL 060 [facility] 2022-07-12 2022-07-12 Outpatient R MICHAEL, [facility] [id number] Univers 09:00:00 09:00:00 KRISSY spring o f [facility] 2022-07-09 2022-07-09 Manager Infrastructure Rehab, [facility] Cardiac [facility] 1.2. 840.114 [id number] Univers 09:00:00 09:52:06 Visit Michael Krissy CAST 350.1.13.10 ity of [place] 4[place].7.2.[place] [id number] Oh dical NAL [address] [place] [address] 2022-07-09 2022-07-09 Orders Doctor KOLE 1.2.840.[id number] [place] [address] 00:00:00 00:00:00 Only Unassigned, JACKELYN 350.1.13.10 ity of [place] [facility] 4.2.7.2.686 Jimmy as [phone] [address] 2022-07-07 2022-07-07 Manager Infrastructure Rehab, [facility] Cardiac [facility] 1.2. 840.114 [id number] [facility] 09:00:00 10:01:27 Visit Krissy Rodriguez 350.1.13.10 ity of [place] 4.[place].7.2.[place] [id number] Oh dical NAL 0 [facility] 2022-07-05 2022-07-05 Manager Infrastructure Rehab, [facility] Cardiac [facility] 1.2. 840.114 [id number] Univers 09:00:00 10:40:37 Visit Michael Krissy CAST 350.1.13.10 ity of [place] 4[place].7.2.[place] [phone] Oh dical NAL 0 [facility] 2022-07-04 2022-07-04 Orders Doctor KOLE 1.2.840.114 [id number] Univers 00:00:00 00:00:00 Only Unassigned, JACKELYN 350.1.13.10 ity of [place] [facility] 4.2.7.2.686 Jimmy as [phone] [address] 2022-07-01 2022-07-01 Manager Infrastructure Rehab, [facility] Cardiac [facility] 1.2. 840.114 [id number] Univers 13:00:00 14:48:48 Visit MichaelKrissy SERENE 350.1.13.10 ity [facility] 4.2.[place].2.[place] [phone] Oh dical NAL 060 [facility] 2022-07-01 2022-07-01 Orders Doctor KOLE 1.2.840.114 [id number] Univers 00:00:00 00:00:00 Only Unassigned, JACKELYN 350.1.13.10 ity of [place] [facility] 4.2.7.2.686 Jimmy as [phone] [address] 2022-06-30 2022-06-30 Out[facility] [id number] Univers 13:40:00 14:11:03 LUIZA ity of [facility] 2022-06-30 2022-06-30 Office [facility] 1.2.840.114 [id number] Univers 13:40:00 14:11:03 Visit Luiza CAST 350.1.13.10 i ty of [place] [phone] Oh dical NAL 059 [facility] 2022-06-30 2022-06-30 Orders Doctor KOLE 1.2.840.114 [id number] Univers 00:00:00 00:00:00 Only Unassigned, JACKELYN 350.1.13.10 ity of [place] [facility] 4.2.7.2.686 Jimmy as [phone] [facility] [address] [place] 2022-06-02 2022-06-02 Transition JACKY Peralta 1.2.840.114 [id number] Univers 00:00:00 00:00:00 of Care Tennille GERARD 350.1.13.10 [place] [id number] [facility] [address] 2022-05-27 2022-06-01 Hospital Reba Mckeon 1.2.84 0.114 [id number] Univers 17:54:00 16:44:00 Encounter Saad Alfaro 350.1.13.10 ity of [facility] 4.2.7.2.686 Dwight Dominguezkelvin Aiden [id number] Medical [address] 2022-05-27 2022-06-01 Inpatient U [facility] [id number] Univers 17:54:00 16:44:00 [facility] of [facility] 2022-06-01 2022-06-01 Refill Genetbasilioisabel Layla [facility] 1.2.840.114 [id number] Univers 00:00:00 00:00:00 Z. PRIMARY 350.1.13.10 it y of [facility] 4.2.7.2.686 David ESTRADA [id number] Oh dicnd [address] 2022-05-31 2022-05-31 Surgery EDGARD De La [place] 1.2.840.114 [id number] Univers 13:48:00 15:48:00 Davie HAYDEN 350.1.13.10 it y [facility] 4.2.7.2.686 Jimmy as [id number] [facility] [address] 2022-03-16 2022-03-16 Ambulatory nullFlavo MNA [id number] Memoria 16:15:00 16:15:00 Pre-Reg r Neurology 33 l [place] 2022-03-16 2022-03-16 Ambulatory nullFlavo MNA [id number] Memoria 16:15:00 16:15:00 Pre-Reg r Neurology 33 l L[place] 2022-03-16 2022-03-16 Outpatient MHIE MADONNAIE [id number] Memoria 11:15:00 11:15:00 33 [address] [place] 2022-03-16 2022-03-16 Outpatient MARICARMEN AmbrocioSCHLUIZ [id number] 11:15:00 11:15:00 Jacky 33 Ziggy 2022-02-19 2022-02-19 Ambulatory nullFlavo MNA [id number] Memoria 15:45:00 15:45:00 Pre-Reg r Neurology 34 l Lefty Mylesann 2022-02-19 2022-02-19 Ambulatory nullFlavo MNA [id number] Memoria 15:45:00 15:45:00 Pre-Reg r Neurology 34 l Lefty Easton 2022-02-19 2022-02-19 Outpatient MHIE MHIE [id number] Memoria 10:45:00 10:45:00 34 cheryle [place] 2022-02-19 2022-02-19 [facility] [id number] 10:45:00 10:45:00 Jacky 34 Ziggy 2022-01-19 2022-01-19 Ambulatory nullFlavo MNA [id number] Memoria 15:00:00 15:00:00 Pre-Reg r Neurology 29 l Lefty Easton 2022-01-19 2022-01-19 Ambulatory nullFlavo MNA [id number] Memoria 15:00:00 15:00:00 Pre-Reg r Neurology 29 l Lefty [place]on 2022-01-19 2022-01-19 Outpatient MHIE MHIE [id number] Memoria 10:00:00 10:00:00 29 cheryle [place] 2022-01-19 2022-01-19 [facility] [id number] 10:00:00 10:00:00 Jacky 29 Ziggy 2021-12-10 2021-12-11 Outpatient nullFlavo MNA [id number] Memoria 16:45:00 04:59:59 r Neurology 31 l Lefty Mylesann 2021-12-10 2021-12-11 Outpatient nullFlavo MNA [id number] Memoria 16:45:00 04:59:59 r Neurology 31 l Lefty [place]on 2021-12-10 2021-12-10 [facility] [id number] 11:45:00 23:59:59 Jacky 31 Ziggy 2021-12-10 2021-12-10 Outpatient MHIE MHIE [id number] Memoria 11:45:00 11:45:00 31 cheryle [place] 2021-12-03 2021-12-04 Outpatient nullFlavo MHMG [id number] Memoria 14:30:00 04:59:59 r Primary 32 l Bhargav plata 2021-12-03 2021-12-04 Outpatient nullFlavo MHMG [id number] Memoria 14:30:00 04:59:59 r Primary 32 l Bhargav plata 2021-12-03 2021-12-03 [place] [id number] 09:30:00 23:59:59 Danny Aaron 32 2021-12-03 2021-12-03 Outpatient MHIE MADONNAIE [id number] Memoria 09:30:00 09:30:00 32 cheryle MylesRustam 2021-11-20 2021-11-21 Outpatient nullFlavo MNA [id number] Memoria 16:15:00 05:59:59 r Neurology 30 l Lefty Rustam 2021-11-20 2021-11-21 Outpatient nullFlavo MNA [id number] Memoria 16:15:00 05:59:59 r Neurology 30 l Lefty Rustam 2021-11-20 2021-11-20 [facility] [id number] 10:15:00 23:59:59 Jacky 30 Ziggy 2021-11-20 2021-11-20 Outpatient MHIE IE [id number] Memoria 10:15:00 10:15:00 30 cheryle MylesRustam 2021-10-21 2021-10-22 Outpatient nullFlavo MNA [id number] Memoria 16:00:00 05:59:59 r Neurology 28 l Lefty Mylesann 2021-10-21 2021-10-22 Outpatient nullFlavo MNA [id number] Memoria 16:00:00 05:59:59 r Neurology 28 l Lefty Rustam 2021-10-21 2021-10-21 [facility] [id number] 10:00:00 23:59:59 Jacky 28 Ziggy 2021-10-21 2021-10-21 Outpatient MHIE IE [id number] Memoria 10:00:00 10:00:00 28 cheryle [place] 2021-09-08 2021-09-09 Outpatient nullFlavo MNA [id number] Memoria 16:00:00 05:59:59 r Neurology 26 l Trent Rustam 2021-09-08 2021-09-09 Outpatient nullFlavo MNA [id number] Memoria 16:00:00 05:59:59 r Neurology 26 l Lefty [place] 2021-09-08 2021-09-08 Outpatient [facility] [id number] 10:00:00 23:59:59 Jacky 26 Ziggy 2021-09-08 2021-09-08 Outpatient MHIE MHIE [id number] Memoria 10:00:00 10:00:00 26 cheryle [place] 2021-08-11 2021-08-12 Outpatient nullFlavo MHMG [id number] Memoria 17:00:00 05:59:59 r Primary [address] 2021-08-11 2021-08-12 Outpatient nullFlavo MHMG [id number] Memoria 17:00:00 05:59:59 r Primary [address] 2021-08-11 2021-08-11 Outpatient VISIT, MHMG MHMG [id number] 11:00:00 23:59:59 NURSE AVN 27 2021-08-11 2021-08-11 Outpatient MHIE MHIE [id number] Memoria 11:00:00 11:00:00 27 cheryle [place] 2021-07-28 2021-07-29 Outpatient nullFlavo MNA [id number] Memoria 16:15:00 05:59:59 r Neurology 24 cheryle [place] 2021-07-28 2021-07-29 Outpatient nullFlavo MNA [id number] Memoria 16:15:00 05:59:59 r Neurology 24 cheryle [place] 2021-07-28 2021-07-28 Outpatient RAYNE [facility]LUIZ [facility] [id number] 10:15:00 23:59:59 Jacky 24 Ziggy 2021-07-28 2021-07-28 Outpatient MHIE MHIE [id number] Memoria 10:15:00 10:15:00 24 cheryle [place] 2021-07-16 2021-07-18 Phone nullFlavo MHMG [id number] Memoria 14:34:45 04:59:59 Message r Primary [address] 2021-07-16 2021-07-18 Phone nullFlavo MHMG [id number] Memoria 14:34:45 04:59:59 Message r Primary [address] nn 2021-07-16 2021-07-17 Outpatient MHMG MHMG [id number] 09:34:45 23:59:59 27 2021-07-14 2021-07-15 Outpatient nullFlavo MHMG [id number] Memoria 18:00:00 04:59:59 r Primary [address] nn 2021-07-14 2021-07-15 Outpatient nullFlavo MHMG [id number] Memoria 18:00:00 04:59:59 r Primary [address] nn 2021-07-14 2021-07-14 Outpatient Mejia, MG MHMG [id number] 13:00:00 23:59:59 Danny Aaron 25 2021-07-14 2021-07-14 Outpatient MHIE MHIE [id number] Memoria 13:00:00 13:00:00 25 cheryle [place] 2021-07-03 2021-07-03 Ambulatory nullFlavo MNA [id number] Memoria 16:15:00 16:15:00 Pre-Reg r Neurology 22 l Lefty Mylesann 2021-07-03 2021-07-03 Ambulatory nullFlavo MNA [id number] Memoria 16:15:00 16:15:00 Pre-Reg r Neurology 22 l Lefty Mylesann 2021-07-03 2021-07-03 Outpatient MHIE MHIE [id number] Memoria 11:15:00 11:15:00 22 cheryle Rustam 2021-07-03 2021-07-03 Outpatient MARICARMEN Ambrocio MISCHER [id number] 11:15:00 11:15:00 Jacky 22 Ziggy 2021-06-29 2021-06-30 Outpatient nullFlavo MNA [id number] Memoria 16:15:00 04:59:59 r Neurology 23 cheryle Trentlexii Mylesann 2021-06-29 2021-06-30 Outpatient nullFlavo MNA [id number] Memoria 16:15:00 04:59:59 r Neurology 23 l Lefty Mylesann 2021-06-29 2021-06-29 Outpatient MARICARMEN Ambrocio MISCHER [id number] 11:15:00 23:59:59 Jacky 23 Ziggy 2021-06-29 2021-06-29 Outpatient MHIE MHIE [id number] Memoria 11:15:00 11:15:00 23 cheryle [place] 2021-06-05 2021-06-06 Outpatient nullFlavo MNA [id number] Memoria 14:45:00 04:59:59 r Neurology 21 l Lefty Easton 2021-06-05 2021-06-06 Outpatient nullFlavo MNA [id number] Memoria 14:45:00 04:59:59 r Neurology 21 l Lefty Easton 2021-06-05 2021-06-05 Outpatient Cristóbal MHMISCHER MHMISCHER [id number] 09:45:00 23:59:59 Jacky 21 Ziggy 2021-06-05 2021-06-05 Outpatient MHIE MHIE [id number] Memoria 09:45:00 09:45:00 21 cheryle [place] 2021-05-20 2021-05-21 Outpatient nullFlavo MNA [id number] Memoria 15:45:00 04:59:59 r Neurology 20 l Lefty Easton 2021-05-20 2021-05-21 Outpatient nullFlavo MNA [id number] Memoria 15:45:00 04:59:59 r Neurology 20 l Lefty Easton 2021-05-20 2021-05-20 Outpatient Cristóbal MHMISCHER MHMISCHER [id number] 10:45:00 23:59:59 Jacky 20 Ziggy 2021-05-20 2021-05-20 Outpatient MHIE MHIE [id number] Memoria 10:45:00 10:45:00 20 cheryle [place] 2021-04-28 2021-04-30 Phone nullFlavo MHMG [id number] Memoria 14:11:21 04:59:59 Message r Primary [address] 2021-04-28 2021-04-30 Phone nullFlavo MHMG [id number] Memoria 14:11:21 04:59:59 Message r Primary [address] 2021-04-28 2021-04-29 Outpatient MHMG MHMG [id number] 09:11:21 23:59:59 26 2021-04-28 2021-04-29 Outpatient nullFlavo MNA [id number] Memoria 21:15:00 04:59:59 r Neurology 19 l Lefty Easton 2021-04-28 2021-04-29 Outpatient nullFlavo MNA [id number] Memoria 21:15:00 04:59:59 r Neurology 19 l Lefty [place] 2021-04-28 2021-04-28 Outpatient Cristóbal [facility] [id number] 16:15:00 23:59:59 Jacky David Trinh 2021-04-28 2021-04-28 Outpatient MHIE MHIE [id number] Memoria 16:15:00 16:15:00 19 cheryle [place] 2021-04-21 2021-04-22 Outpatient nullFlavo MHMG [id number] Memoria 20:30:00 04:59:59 r Primary [address] 2021-04-21 2021-04-22 [place] [id number] Memoria 20:30:00 04:59:59 r Primary [address] 2021-04-21 2021-04-21 Outpatient Mejia, MG [facility]MG [id number] 15:30:00 23:59:59 Danny Aaron 18 2021-04-21 2021-04-21 Outpatient MHIE MHIE [id number] Memoria 15:30:00 15:30:00 18 cheryle [place] 2021-01-23 2021-01-25 Phone nullFlavo MG [id number] Memoria 19:01:15 04:59:59 Message r Primary [address] 2021-01-23 2021-01-25 Phone nullFlavo MG [id number] Memoria 19:01:15 04:59:59 Message r Primary [address] 2021-01-23 2021-01-24 Outpatient MHMG MHMG [id number] 14:01:15 23:59:59 25 2021-01-02 2021-01-04 Phone nullFlavo MHMG [id number] Memoria 12:54:42 04:59:59 Message r Primary [address] 2021-01-02 2021-01-04 Phone nullFlavo MHMG [id number] Memoria 12:54:42 04:59:59 Message r Primary [address] 2021-01-02 2021-01-03 Outpatient MHMG MHMG [id number] 07:54:42 23:59:59 2020-12-30 2021-01-01 Phone nullFlavo MHMG [id number] Memoria 16:52:37 04:59:59 Message r Primary [address] 2020-12-30 2021-01-01 Phone nullFlavo MHMG [id number] Memoria 16:52:37 04:59:59 Message r Primary [address] 2020-12-30 2020-12-31 Outpatient MHMG MHMG [id number] 11:52:37 23:59:59 2020-12-17 2020-12-18 Outpatient nullFlavo MHMG [id number] Memoria 19:30:00 04:59:59 r Primary [address] 2020-12-17 2020-12-18 Outpatient nullFlavo MHMG [id number] Memoria 19:30:00 04:59:59 r Primary [address] 2020-12-17 2020-12-17 Outpatient Jackie, MHMG MHMG [id number] 14:30:00 23:59:59 Danny Aaron 17 2020-12-17 2020-12-17 Outpatient MHIE MHIE [id number] Memoria 14:30:00 14:30:00 17 cheryle [place] 2020-10-22 2020-10-23 Outpatient nullFlavo MHMG [id number] Memoria 19:45:00 05:59:59 r Primary [address] 2020-10-22 2020-10-23 Outpatient nullFlavo MHMG [id number] Memoria 19:45:00 05:59:59 r Primary [address] 2020-10-22 2020-10-22 Outpatient Jackie, MHMG MHMG [id number] 13:45:00 23:59:59 Danny Aaron 16 2020-10-22 2020-10-22 Outpatient MHIE MHIE [id number] Memoria 13:45:00 13:45:00 16 cheryle [place] 2020-08-21 2020-08-21 Ambulatory nullFlavo MNA [id number] Memoria 15:30:00 15:30:00 Pre-Reg r Neurology 15 l Lefty Easton 2020-08-21 2020-08-21 Ambulatory nullFlavo MNA [id number] Memoria 15:30:00 15:30:00 Pre-Reg r Neurology 15 l Lefty [place]on 2020-08-21 2020-08-21 Outpatient MHIE MHIE [id number] Memoria 09:30:00 09:30:00 15 cheryle [place] 2020-08-21 2020-08-21 [id number] 09:30:00 09:30:00 Jacky Jasmina Ziggy 2020-07-28 2020-07-30 Phone nullFlavo MHMG [id number] Memoria 13:57:18 05:59:59 Message r Primary [address] 2020-07-28 2020-07-30 Phone nullFlavo MHMG [id number] Memoria 13:57:18 05:59:59 Message r Primary [address] 2020-07-28 2020-07-30 Phone nullFlavo MHMG [id number] Memoria 13:56:57 05:59:59 Message r Primary [address] 2020-07-28 2020-07-30 Phone nullFlavo MHMG [id number] Memoria 13:56:57 05:59:59 Message r Primary [address] 2020-07-28 2020-07-29 Outpatient MHMG MHMG [id number] 07:57:18 23:59:59 22 2020-07-28 2020-07-29 Outpatient MHMG MHMG [id number] 07:56:57 23:59:59 21 2020-07-10 2020-07-11 Outpatient nullFlavo MNA [id number] Memoria 15:00:00 04:59:59 r Neurology 14 l Lefty Easton 2020-07-10 2020-07-11 Outpatient nullFlavo MNA [id number] Memoria 15:00:00 04:59:59 r Neurology 14 l Lefty Easton 2020-07-10 2020-07-10 Outpatient Cristóbal M[facility]ER MISCHER [id number] 10:00:00 23:59:59 Jackylianet Trinh 2020-07-10 2020-07-10 Outpatient MHIE MHIE [id number] Memoria 10:00:00 10:00:00 14 cheryle [place] 2020-07-07 2020-07-09 Phone nullFlavo MHMG [id number] Memoria 15:35:25 04:59:59 Message r Primary [address] 2020-07-07 2020-07-09 Phone nullFlavo MHMG [id number] Memoria 15:35:25 04:59:59 Message r Primary [address] 2020-07-07 2020-07-08 Outpatient MHMG MHMG [id number] 10:35:25 23:59:59 20 2020-06-10 2020-06-11 Between nullFlavo MHMG [id number] Memoria 19:07:41 19:07:41 Visit r Primary [address] 2020-06-10 2020-06-11 Between nullFlavo MHMG [id number] Memoria 19:07:41 19:07:41 Visit r Primary [address] 2020-06-10 2020-06-11 Outpatient MHMG MHMG [id number] 14:07:41 14:07:41 29 2020-06-09 2020-06-11 Phone nullFlavo MHMG [id number] Memoria 16:45:06 04:59:59 Message r Primary [address] 2020-06-09 2020-06-11 Phone nullFlavo MHMG [id number] Memoria 16:45:06 04:59:59 Message r Primary [address] 2020-06-09 2020-06-10 Outpatient MHMG MHMG [id number] 11:45:06 23:59:59 19 2020-06-07 2020-06-08 [place] [id number] Memoria 11:38:00 04:59:00 Services r Outpatient 02 l Rima Easton [place] 2020-06-07 2020-06-08 Outpt Diag nullFlavo [id number] Memoria 11:38:00 04:59:00 Services r Outpatient 02 l Rima Easton [place] 2020-06-07 2020-06-07 Outpatient Jackie MHOIP MHOIP [id number] 06:38:00 23:59:00 Danny Aaron 02 2020-06-04 2020-06-06 Phone nullFlavo MHMG [id number] Memoria 12:33:26 04:59:59 Message r Primary [address] 2020-06-04 2020-06-06 Phone nullFlavo MHMG [id number] Memoria 12:33:26 04:59:59 Message r Primary [address] 2020-06-04 2020-06-05 Outpatient MHMG MHMG [id number] 07:33:26 23:59:59 18 2020-06-03 2020-06-04 Outpatient nullFlavo MHMG [id number] Memoria 15:15:00 04:59:59 r Primary [address] 2020-06-03 2020-06-04 Outpatient nullFlavo MHMG [id number] Memoria 15:15:00 04:59:59 r Primary [address] 2020-06-03 2020-06-03 Outpatient Jackie MHMG MHMG [id number] 10:15:00 23:59:59 Danny Aaron 13 2020-06-03 2020-06-03 Outpatient MHIE MHIE [id number] Memoria 10:15:00 10:15:00 13 cheryle [place] 2020-04-18 2020-04-20 Phone nullFlavo MHMG [id number] Memoria 12:45:38 04:59:59 Message r Primary [address] 2020-04-18 2020-04-20 Phone nullFlavo MHMG [id number] Memoria 12:45:38 04:59:59 Message r Primary [address] 2020-04-18 2020-04-19 Outpatient MHMG MHMG [id number] 07:45:38 23:59:59 17 2020-04-15 2020-04-15 Outpatient MHIE MHIE [id number] Memoria 16:00:00 16:00:00 12 cheryle [place] 2020-04-15 2020-04-15 Outpatient MHIE MHIE [id number] Memoria 16:00:00 16:00:00 12 cheryle [place] 2020-02-22 2020-02-23 Between nullFlavo MHMG [id number] Memoria 13:52:50 13:52:50 Visit r Primary [address] 2020-02-22 2020-02-23 Between nullFlavo MHMG [id number] Memoria 13:52:50 13:52:50 Visit r Primary [address] 2020-02-22 2020-02-23 Outpatient MHMG MHMG [id number] 08:52:50 08:52:50 25 2020-02-22 2020-02-23 [place] [id number] Memoria 13:15:00 04:59:59 r Primary [address] 2020-02-22 2020-02-23 [place] [id number] Memoria 13:15:00 04:59:59 r Primary [address] 2020-02-22 2020-02-22 Outpatient [place], MG [place] [id number] 08:15:00 23:59:59 Osman 11 Joey 2020-02-21 2020-02-22 Between nullFlavo MHMG [id number] Memoria 21:48:44 21:48:44 Visit r Primary [address] 2020-02-21 2020-02-22 Between nullFlavo MHMG [id number] Memoria 21:48:44 21:48:44 Visit r Primary [address] 2020-02-21 2020-02-22 Outpatient MHMG MG [id number] 16:48:44 16:48:44 24 2020-02-22 2020-02-22 Outpatient MHIE MHIE [id number] Memoria 08:15:00 08:15:00 11 cheryle [place] 2020-01-14 2020-01-16 Phone nullFlavo MHMG [id number] Memoria 13:04:38 04:59:59 Message r Primary [address] 2020-01-14 2020-01-16 Phone nullFlavo MHMG [id number] Memoria 13:04:38 04:59:59 Message r Primary [address] 2020-01-14 2020-01-15 Outpatient MHMG MHMG [id number] 08:04:38 23:59:59 16 2019-10-08 2019-10-10 Phone nullFlavo MHMG [id number] Memoria 13:48:39 05:59:59 Message r Primary [address] 2019-10-08 2019-10-10 Phone nullFlavo MHMG [id number] Memoria 13:48:39 05:59:59 Message r Primary [address] 2019-10-08 2019-10-09 Outpatient MHMG MHMG [id number] 07:48:39 23:59:59 15 2019-08-20 2019-08-22 Phone nullFlavo MHMG [id number] Memoria 20:36:04 05:59:59 Message r Primary [address] 2019-08-20 2019-08-22 Phone nullFlavo MHMG [id number] Memoria 20:36:04 05:59:59 Message r Primary [address] 2019-08-20 2019-08-21 Outpatient MHMG MHMG [id number] 14:36:04 23:59:59 14 2019-08-08 2019-08-09 Between nullFlavo MHMG [id number] Memoria 14:32:23 14:32:23 Visit r Primary [address] 2019-08-08 2019-08-09 Between nullFlavo MHMG [id number] Memoria 14:32:23 14:32:23 Visit r Primary [address] 2019-08-08 2019-08-09 Outpatient MHMG MHMG [id number] 08:32:23 08:32:23 20 2019-08-07 2019-08-08 Outpatient nullFlavo MHMG [id number] Memoria 19:45:00 05:59:59 r Primary [address] 2019-08-07 2019-08-08 Outpatient nullFlavo MHMG [id number] Memoria 19:45:00 05:59:59 r Primary [address] 2019-08-07 2019-08-08 [place] [id number] Memoria 21:00:00 05:59:00 Services r Outpatient 01 cheryle [place]on [place] 2019-08-07 2019-08-08 Outpt Diag nullFlavo [facility] [id number] Memoria 21:00:00 05:59:00 Services r Outpatient 01 cheryle [place] 2019-08-07 2019-08-07 Outpatient Jackie MHMG MHMG [id number] 13:45:00 23:59:59 Danny Aaron 10 2019-08-07 2019-08-07 Outpatient Jackie [id number] 15:00:00 23:59:00 Danny Aaron [id number] 5.24 2019-08-07 2019-08-07 Outpatient MHIE IE [id number] Memoria 13:45:00 13:45:00 10 cheryle MylesRustam 2019-07-02 2019-07-04 Phone nullFlavo MHMG [id number] Memoria 13:33:02 04:59:59 Message r Primary [address] 2019-07-02 2019-07-04 Phone nullFlavo MHMG [id number] Memoria 13:33:02 04:59:59 Message r Primary [address] 2019-07-02 2019-07-03 Outpatient MHMG MHMG [id number] 08:33:02 23:59:59 13 2019-06-06 2019-06-07 Between nullFlavo MHMG [id number] Memoria 23:17:25 23:17:25 Visit r Primary [address] 2019-06-06 2019-06-07 Between nullFlavo MHMG [id number] Memoria 23:17:25 23:17:25 Visit r Primary [address] 2019-06-06 2019-06-07 Outpatient MHMG MHMG [id number] 18:17:25 18:17:25 18 2019-06-04 2019-06-05 [place] [id number] Memoria 20:30:00 04:59:59 r Primary [address] 2019-06-04 2019-06-05 Outpatient nullFlavo MHMG [id number] Memoria 20:30:00 04:59:59 r Primary [address] 2019-06-04 2019-06-05 Outpt Diag nullFlavo [facility] [id number] Memoria 21:18:00 04:59:00 Services r Outpatient 00 l Rima [place]on [place] 2019-06-04 2019-06-05 Outpt Diag nullFlavo [facility] [id number] Memoria 21:18:00 04:59:00 Services r Outpatient 00 Rima [place]on [place] 2019-06-04 2019-06-04 Outpatient Jackie [facility] [id number] 15:30:00 23:59:59 Danny Aaron 09 2019-06-04 2019-06-04 Outpatient Jackie [id number]. [id number] 16:18:00 23:59:00 Danny Aaron [id number] 5.24 2019-06-04 2019-06-04 Outpatient MHIE IE [id number] Memoria 15:30:00 15:30:00 09 cheryle [place] 2019-04-18 2019-04-19 Between nullFlavo MG [id number] Memoria 19:57:56 19:57:56 Visit r Primary [address] 2019-04-18 2019-04-19 Between nullFlavo MG [id number] Memoria 19:57:56 19:57:56 Visit r Primary [address] 2019-04-18 2019-04-19 Outpatient MHMG MG [id number] 14:57:56 14:57:56 2019-03-28 2019-03-30 Phone nullFlavo MHMG [id number] Memoria 13:17:54 04:59:59 Message r Primary [address] 2019-03-28 2019-03-30 Phone nullFlavo MHMG [id number] Memoria 13:17:54 04:59:59 Message r Primary [address] 2019-03-28 2019-03-29 Outpatient MHMG MHMG [id number] 08:17:54 23:59:59 2019-03-05 2019-03-06 Outpatient nullFlavo MHMG [id number] Memoria 19:30:00 04:59:59 r Primary [address] 2019-03-05 2019-03-06 Outpatient nullFlavo MHMG [id number] Memoria 19:30:00 04:59:59 r Primary [address] 2019-03-05 2019-03-05 Outpatient Nilo MG MHMG [id number] 14:30:00 23:59:59 Fina 08 2019-03-05 2019-03-05 Outpatient MHIE MHIE [id number] Memoria 14:30:00 14:30:00 08 cheryle [place] 2019-02-08 2019-02-09 [place] [id number] Memoria 18:30:00 04:59:59 r Primary [address] 2019-02-08 2019-02-09 [place] [id number] Memoria 18:30:00 04:59:59 r Primary [address] 2019-02-08 2019-02-08 Outpatient Nilo, MG MG [id number] 13:30:00 23:59:59 Fina 07 2019-02-08 2019-02-08 Outpatient MHIE MHIE [id number] Memoria 13:30:00 13:30:00 07 cheryle [place] 2019-02-06 2019-02-08 Phone nullFlavo MHMG [id number] Memoria 12:58:27 04:59:59 Message r Primary [address] 2019-02-06 2019-02-08 Phone nullFlavo MHMG [id number] Memoria 12:58:27 04:59:59 Message r Primary [address] 2019-02-06 2019-02-07 Outpatient MHMG MHMG [id number] 07:58:27 23:59:59 11 2018-12-06 2018-12-08 Phone nullFlavo MHMG [id number] Memoria 13:15:00 04:59:59 Message r Primary [address] 2018-12-06 2018-12-08 Phone nullFlavo MHMG [id number] Memoria 13:15:00 04:59:59 Message r Primary [address] 2018-12-06 2018-12-07 Outpatient MHMG MHMG [id number] 08:15:00 23:59:59 10 2018-06-15 2018-06-17 Phone nullFlavo MHMG [id number] Memoria 18:03:00 04:59:59 Message r Primary [address] 2018-06-15 2018-06-17 Phone nullFlavo MHMG [id number] Memoria 18:03:00 04:59:59 Message r Primary [address] 2018-06-15 2018-06-16 Outpatient MHMG MHMG [id number] 13:03:00 23:59:59 09 2018-03-06 2018-03-07 Outpatient nullFlavo MHMG [id number] Memoria 16:30:00 04:59:[address] r [address] 2018-03-06 2018-03-07 Outpatient nullFlavo MHMG [id number] Memoria 16:30:00 04:59:59 r Primary [address] 2018-03-06 2018-03-06 Outpatient Mejia, MHMG MHMG [id number] 11:30:00 23:59:59 Danny Aaron 2018-03-06 2018-03-06 Outpatient MHIE MHIE [id number] Memoria 11:30:00 11:30:00 06 cheryle [place] 2018-02-23 2018-02-24 Outpatient nullFlavo MHMG [id number] Memoria 13:00:00 04:59:[address] r [address] 2018-02-23 2018-02-24 Outpatient nullFlavo MHMG [id number] Memoria 13:00:00 04:59:[address] r Primary [address] 2018-02-23 2018-02-23 Outpatient Mejia, MHMG MHMG [id number] 08:00:00 23:59:59 Danny Aaron 2018-02-23 2018-02-23 Outpatient MHIE MHIE [id number] Memoria 08:00:00 08:00:00 05 cheryle [place] 2018-02-13 2018-02-15 Phone null[facility]avo [facility] [id number] Memoria 14:10:00 04:59:59 Message r Primary 08 cheryle Mylesa 2018-02-13 2018-02-15 Phone [facility] [id number] Memoria 14:10:00 04:59:59 Message r Primary [address] 2018-02-13 2018-02-14 Outpatient [facility] [id number] 09:10:00 23:59:59 08 2018-01-13 2018-01-15 Phone [facility]avo [facility] [id number] Memoria 14:36:00 04:59:59 Message r Primary [address] 2018-01-13 2018-01-15 Phone [facility] [id number] Memoria 14:36:00 04:59:59 Message r Primary [address] 2018-01-13 2018-01-14 Outpatient [facility] [id number] 09:36:00 23:59:59 07 2017-11-25 2017-11-27 Outside [facility] [id number] Memoria 21:44:00 04:59:59 Medical r Primary 06 l [facility] [address] 2017-11-25 2017-11-27 Outside [facility] [id number] Memoria 21:44:00 04:59:59 Medical r Primary [address] 2017-11-25 2017-11-26 Outpatient [facility] [id number] 16:44:00 23:59:59 06 2017-11-24 2017-11-26 Outside [facility]avo [facility] [id number] Memoria 19:18:00 04:59:59 Medical r Primary 05 l Records [facility] [address] 2017-11-24 2017-11-26 Outside [facility]avo [facility] [id number] Memoria 19:18:00 04:59:59 Medical r Primary [address] 2017-11-24 2017-11-25 Outpatient [facility] [id number] 14:18:00 23:59:59 05 2017-11-23 2017-11-25 Phone [facility] [id number] Memoria 22:02:00 04:59:59 Message r Primary [address] 2017-11-23 2017-11-25 Phone [facility] [id number] Memoria 22:02:00 04:59:59 Message r Primary [address] 2017-11-23 2017-11-24 Outpatient [facility] [id number] 17:02:00 23:59:59 04 2017-11-21 2017-11-22 Outpatient [facility] [id number] Memoria 20:30:00 04:59:59 r Primary [address] 2017-11-21 2017-11-22 Outpatient [facility]avo [facility] [id number] Memoria 20:30:00 04:59:59 r Primary 04 cheryle plata 2017-11-21 2017-11-21 Outpatient Jennifer, [facility] [id number] 15:30:00 23:59:59 Osman Cook 2017-11-21 2017-11-21 Outpatient [facility] [id number] Memoria 15:30:00 15:30:00 04 hceryle [place] 2017-11-18 2017-11-20 Phone [facility]avo [facility] [id number] Memoria 20:05:00 05:59:59 Message r Primary [address] 2017-11-18 2017-11-20 Phone [facility] [id number] Memoria 20:05:00 05:59:59 Message r Primary [address] 2017-11-18 2017-11-19 Outpatient [facility] [id number] 14:05:00 23:59:59 03 2017-10-11 2017-10-13 Phone null[facility]avo [facility] [id number] Memoria 17:27:00 05:59:59 Message r Primary [address] 2017-10-11 2017-10-13 Phone nullFlavo [facility] [id number] Memoria 17:27:00 05:59:59 Message r Primary [address] 2017-10-11 2017-10-12 Outpatient [facility] [id number] 11:27:00 23:59:59 02 2017-09-13 2017-09-15 Phone nullFlavo [facility] [id number] Memoria 13:50:00 05:59:59 Message r Primary [address] 2017-09-13 2017-09-15 Phone nullFlavo [facility] [id number] Memoria 13:50:00 05:59:59 Message r Primary [address] nn 2017-09-13 2017-09-14 Outpatient [facility] [id number] 07:50:00 23:59:59 01 2017-07-25 2017-07-26 Outpatient nullFlavo [facility] [id number] Memoria 22:00:00 05:59:[address] r [address] 2017-07-25 2017-07-26 Outpatient nullFlavo [facility] [id number] Memoria 22:00:00 05:59:59 r Primary [address] nn 2017-07-25 2017-07-25 Outpatient Jackie [facility] [id number] 16:00:00 23:59:59 Danny Aaron 03 2017-07-25 2017-07-25 Outpatient MHIE MHIE [id number] Memoria 16:00:00 16:00:00 03 cheryle [place] 2017-07-12 2017-07-12 Outpatient MHIE MHIE [id number] Memoria 14:15:00 14:15:00 02 hceryle [place]on 2017-07-12 2017-07-12 Outpatient MHIE MHIE [id number] Memoria 14:15:00 14:15:00 02 cheryle [place] 2016-02-23 2016-02-23 Outpatient MHIE MHIE [id number] Memoria 10:15:00 10:15:00 01 cheryle [place]on 2016-02-23 2016-02-23 Outpatient MHIE MHIE [id number] Memoria 10:15:00 10:15:00 01 cheryle [place]on 2015-12-24 2015-12-24 Outpatient MHIE MHIE [id number] Memoria 13:00:00 13:00:00 00 cheryle [place]on 2015-12-24 2015-12-24 Outpatient MHIE [facility]IE [id number] Memoria 13:00:00 13:00:00 00 cheryle [place]on Results Test Description Test Time Test Comments Results Result Comments Source SURGICAL 2023-02-28 13:58:00 Test Item Value Reference Range Interpretation Comme nts SURGICAL RUN DATE: (test 02/28/23 [facility] - LAB PA GE 1 RUN TIME: 1359 Specimen Inquiry RUN USER: INTERFACE code = PATIENT: KENTRELL HANSEN ACCT #: [id number] [facility] [place] [facility] [id number] AGE/SX: 52/F ROOM[place] [facility] [place] RE02/24/23REG DR: Troy David MD : 70 BED: 1 DIS: 02/25/23 STATUS: DIS IN TLOC: SPEC #: [id number] RECD: 02/25/231107 STATUS: SHANON REQ #: [id number] ALFIE: 02/24/23- SUBM DR: Steven David MD ENTERED: 02/25/23 SP TYPE: SURGICAL OTHR DR: ORDERED: GROSS ONL 57417, 11013, ANATOMIC SPEC PROCEDURES: GROSS ONL 81205 (02/25/23-1108) 23934 (02/25/23) TISSUES: A. INTERVERTEBRAL DISC - C4-C5 B. ICE PULLER FLAKITA S ONLY - HARDWARE CLINICAL HISTORY SAME FINAL DIAGNOSIS Disc, C4-5, submitted: Fragments of fibr ocartilaginous tissue with degenerative changes. Hardware, submitted: Gross examination only. GROSS DESC RIPTION Received in formalin labeled C4-5 disc is a 2.2 cm aggregate of white-diane soft tissue (A). R eceived fresh labeled hardware is a 2 x 1.5 x 0.3 cm metal bracket with 7 holes, 4 bluescrews that sandeep sure 1.5 cm in length, 2 brown screws that measure up to 0.5 cm in length, 2washers that measure up to 0.5 cm in diameter. Gross examination only. Technical component performed at [facility],[address] [place] [address], [place] [address] Unless gross only, the diagnosis is based upon microscopic examination.Immunohistochemistry: This test was developed and its performance characte risticsdetermined by this laboratory. It has not been approved nor does it need approvalby the [place] FDA. Appropriate positive and negative controls are reviewed and judgedto be acceptable for performedim nohistochemistry and/or special stains. This laboratoryis certified under the Clinical Laboratory Impr ovement Amendments (CLIA-88) as qualified toperform high complexity clinical laboratory testing. 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 [facility] GLUCOSE [id number] 16:30:00 Test Item Value Reference Range Interpretation Comments GLUCOSE BEDSIDE (test 215 MG/DL 70-110 H Perfor med by certified code = GLUBED) 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 [facility] GLUCOSE [id number] 10:51:00 Test Item Value Reference Range Interpretation Comments GLUCOSE BEDSIDE (test 220 MG/DL 70-110 H Perfor med by certified code = GLUBED) 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 : 1970 Age/S: 52/F [address] [place] [address] Unit #: [id number] Loc: [place] [address] Phys: Steven David MD Acct: [id number] Dis Date: Status: ADM IN PHONE #: [phone] Exam Date: 02/24/2023 [facility] FAX #: [phone] Reason: CERVICAL DISC HERNIATION; POST LAMINECTOMY SYND EXAMS: CPT CODE: [id number] XRFLUOROSCOPY 0-60 MIN 51463 PROCEDURE INFORMATION: Exam: FL Fluoroscopy, Up to 1 Hour Physician Time;Radiologist Not Present For Fluoroscopy Exam date and time: 02/24/2023 7:58 AM Age: 52 years old Clinical indication: Symptoms: Cervical disc herniation; Cervical post laminectomy syndrome; Cervical spondylosis; Additional info: Cervical disc herniation; Post laminectomy syndrome TECHNIQUE: Imaging protocol: Fluoroscopy , up to 1 hour physician or other qualified health career technical supervisor time. This radiologist did not supervise this procedure. Exam supervised by facility personnel. Report for radiation dosage reporting and documentation only. Other technique: Radiologist was not present during thisprocedure. COMPARISON: No relevant prior studies available. RADIATION DOSE METRICS: Fluoroscopy time(seconds): seconds= 5 SECS Number of fluoro spot images: images= 4 Reference air kerma (ANDRE): 0.84 mGy FINDINGS: Procedural imaging: Fluoroscopic assistance was provided. Radiologist was not present during the procedure. Intraoperative review of these images was performed by the operating physician. Please refer to the procedure report for further details. Notes: Fluoroscopy supervised by facility personnel. See also separate procedure report. IMPRESSION: Fluoroscopy dosage documentation. See also separate procedure notes. at 1052 Reported and signed by: Juan Watkins M.D. CC: Steven David MD Technologist:RT Kishore(Mitchell) Trnscrd Date/Time/By: 02/24/2023 (3301) : By: [email or web address] Orig Print D/T: S: 02/24/2023 (0554) PAGE 1 Signed Report- XR C-SPINE 2-3 [id number] 00:00:00 [facility] CAROLYN : 1970 Sex: F FAX: Steven Luna [phone] [place]: St: ADM Name: KENTRELL HOPSON [facility] : 1970 Age/S: 52/F [address] [place] [address] Unit #: [id number] Loc: [address] [place] [address] Phys: Steven David MD Acct: [id number] Dis Date: Status: ADM IN PHONE #: [phone] Exam Date: 02/24/2023 1255 FAX #: [phone] Reason: Neurosurgery Post Op Spine EXAMS: CPT CODE: [id number] XR C-SPINE 2-3 VIEWS 25823 PROCEDURE INFORMATION: Exam: XR Cervical Spine Exam date and time: 02/24/2023 12:30 PM Age: 52 years old Clinical indication: Other: Neurosurgery post op spine TECHNIQUE: Imaging protocol: Radiologic exam of the cervical spine. Views: 2 views. AP and cross-table lateral views obtained postoperatively. COMPARISON: CR XR C-SPINE 4 + V 01/18/2023 12:00 AM FINDINGS: Limitations: Technique, positioning and patient body habitus. Lower cervical levels obscured in the lateral projection. Bones/joints: Interval cervical discectomy C4-C5 with interbody spacer placement. Interval revision ventral plate now spanning C4 through C6 vertebrae. Lower portions of the plate obscured in the lateral projection, unremarkable in the frontal projection. There is no malalignment through C4-C5. Soft tissues: Postoperative changes in regional soft tissues with associated fullness of prevertebral space. No unintended radio paque foreign material. Notes: Further interpretation may be made by the operating physician. IMPRESSION: Limited postoperative exam demonstrating changes of ACDF C4-C5 with interval revision of ventral plate spanning C4 through C6. Electronically Signed by Jamison Michaud on 3at 1537 Reported and signed by: Coleman Michaud M.D. CC: Steven David MD Technologist: RT Dian(R) Trnscrd Date/Time/By: 02/24/2023 (0370) : By: Lenny Orig Print D/T: S: 02/24/2023 (9585) PAGE 1 Signed ReportHCG SERUM [id number] 13:20:00 Test Item Value Reference Range Interpretation Comments HCG SERUM QUAL (test code = SERUM NEGATIVE NEGATIVE HCGQL) COMPREHENSIVE METABOLIC [id number] 12:29:00 Test Item Value Reference Range Interpretation Comments SODIUM (test code = 136 mEq/L 134-147 N NA) POTASSIUM (test code 4.4 mEq/L 3.4-5.0 N = K) CHLORIDE (test code 105 mEq/L 100-108 N = CL) CARBON DIOXIDE (test 27 mEq/l 21-33 N code = CO2) ANION GAP (test code 8 0-20 N = GAP) GLUCOSE (test code = 254 mg/dL 70-110 H GLU) BLOOD UREA NITROGEN 16 mg/dL 7-18 N (test code = BUN) GLOMERULAR 88.6 90-95 L The Glomerular FILTRATION RATE Filtration R ate is a (test code = GFR) calculated parameterbased on serum Creatinin e, patient age and sex. GFR valuesless than 60 mL/min/1.73 squ are meters are daniel cative ofChronic Kidne y Disease. Values less than 15 mL/min/1.73squa re meters indicate Kidney failure. The calculation for GFR is based on the CK D-EPI (2020) calculat ion. This formulais race indifferent and is the recommended for annia for GFRby the N [facility] Found[facility] on for Adults.The GFR will not calculate i f the sex is unknown or if thepatient's ag e is <18 years. CREATININE (test 0.8 mg/dL 0.6-1.3 N code = CREAT) TOTAL PROTEIN (test 7.1 g/dL 6.4-8.2 N code = PROT) ALBUMIN (test code = 3.30 g/dL 3.4-5.0 L ALB) CALCIUM (test code = 10.1 mg/dL 8.0-10.5 N CA) BILIRUBIN TOTAL 0.30 mg/dL 0.0-1.0 N (test code = BILT) SGOT/AST (test code < 8 IUnit/L 15-37 L = AST) SGPT/ALT (test code 10 IUnit/L 30-65 L = ALT) ALKALINE PHOSPHATASE 141 IUnit/L 20-125 H TOTAL (test code = ALKP) PROTHROMBIN [id number] 12:16:00 Test Item Value Reference Range Interpretation Comments PROTHROMBIN TIME 12.0 SECONDS 9.3-12.9 N PATIENT (test code = PTP) INTERNATIONAL NORMAL 1.1 0.8-1.2 N TARGET INR BY RATIO (test code = INDICATIO N Indication INR) INR1. Prophylax is of venous thrombos is 2.0 - 3.0 (orthoped ic surgery), Proph ylaxis of venous throm bosis (other than hig h-risk surgery), Treat ment of Deep Vein Thrombosis/Pulm onary Embolism, Preve ntion of systemic emb olism - Tissue heart va lves, Acute Myocardia l Infarction (to prevent systemic emboli sm), Valvular heart disease, Atrial Fibrillation, Bileaflet mecha nical valve in aortic position.2. Mec hanical prosthetic valv es (high risk), 2. 5 - 3.5 Presence of Lup us Anticoagulant o r Antiphospholipi d Antibodies, Pre vention of systemic emb olism - Acute Myocardia l Infarction (to prevent recurrent infar ct). THROMBOPLASTIN TIME [id number] 12:16:00 Test Item Value Reference Range Interpretation Comments THROMBOPLASTIN TIME 32.3 Seconds 25.0-39.5 N Therape utic Range: PARTIAL (test code = 50.4 - 88.3 Seconds PTT) Effective 12/26/2018 CBC W/AUTO [id number] 12:07:00 Test Item Value Reference Range Interpretation Comments WHITE BLOOD CELL (test code = 8.7 x10 3/uL 4.5-11.0 N WBC) RED BLOOD CELL (test code = 4.58 x10 6/uL 3.54-5.02 N RBC) HEMOGLOBIN (test code = HGB) 10.7 g/dL 11.0-15.0 L HEMATOCRIT (test code = HCT) 34.9 % 33.0-45.0 N MEAN CELL VOLUME (test code = 76.2 fL 81.0-99.0 L MCV) MEAN CELL HGB (test code = MCH) 23.4 pg 27.0-33.0 L MEAN CELL HGB CONCETRATION 30.7 g/dL 33.0-37.0 L (test code = MCHC) RED CELL DISTRIBUTION WIDTH CV 15.4 % 11.5-14.5 H (test code = RDW) RED CELL DISTRIBUTION WIDTH SD 41.9 fL 37.0-54.0 N (test code = RDW-SD) PLATELET COUNT (test code = 310 x10 3/uL 150-400 N PLT) MEAN PLATELET VOLUME (test code 11.3 fL 7.0-9.0 H = MPV) NEUTROPHIL % (test code = NT%) 60.6 % 56.0-77.0 N IMMATURE GRANULOCYTE % (test 0.3 % 0.0-2.0 N code = IG%) LYMPHOCYTE % (test code = LY%) 28.8 % 14.0-32.0 N MONOCYTE % (test code = MO%) 7.0 % 4.8-9.0 N EOSINOPHIL % (test code = EO%) 2.5 % 0.3-3.7 N BASOPHIL % (test code = BA%) 0.8 % 0.0-2.0 N NUCLEATED RBC % (test code = 0.0 % 0-0 N NRBC%) NEUTROPHIL # (test code = NT#) 5.28 x10 3/uL 2.0-7.6 N IMMATURE GRANULOCYTE # (test 0.03 x10 3/uL 0.00-0.03 N code = IG#) LYMPHOCYTE # (test code = LY#) 2.51 x10 3/uL 1.0-3.8 N MONOCYTE # (test code = MO#) 0.61 x10 3/uL 0.1-0.8 N EOSINOPHIL # (test code = EO#) 0.22 x10 3/uL 0.0-0.2 H BASOPHIL # (test code = BA#) 0.07 x10 3/uL 0.0-0.2 N NUCLEATED RBC # (test code = 0.00 x10 3/uL 0.0-0.1 N NRBC#) MANUAL DIFF REQUIRED (test code NO = MDIFF) - XR CHEST 2 [id number] 00:00:00 [facility] 1970 Sex: F FAX: Steven Luna [phone] [place]: St: PRE Name: KENTRELL HOPSON [facility] : 1970 Age/S: 52/F [address] [place] [address] Unit #: [id number] Loc: [place] [address] Phys: Steven David MD Acct: [id number] Dis Date: Status: PRE IN PHONE #: [phone] Exam Date: 02/22/2023 1223 FAX #: [phone] Reason: PREOP EXAMS: CPT CODE: [id number] XR CHEST 2 V 00920 PROCEDURE INFORMATION: Exam: XR Chest Exam date and time: 02/22/2023 12:21 PM Age: 52 years old Clinical indication: Pre-operative exam; Cardiovascular screening and respiratory screening exam; Additional info: Preop TECHNIQUE: Imaging protocol: Radiologic exam of the chest. Views: 2 views. PA and Lateral COMPARISON: No relevant prior studies available. FINDINGS: Lungs: The lungs are clear. Pleural spaces: Unremarkable. No pleural effusion. No pneumothorax. Heart/Mediastinum: The heart size is upper limits of normal. The pulmonary vasculature is normal. The mediastinal contour is normal. The trachea is midline. Bones/joints: No acute abnormality seen. Metallic plate is present in the lower cervical spine. IMPRESSION: No acute cardiopulmonary findings at 1322 Reported and signed by: Tony Sweet M.D. CC: Steven David MD Technologist: Sancho Dahl Trnscrd Date/Time/By: 02/22/2023 (3592) : By: [email or web address] Orig Print D/T: S: 02/22/2023 (6066) PAGE 1 Signed [id number] 13:57:36 Test Item Value Reference Range Interpretation [...] foraminal stenosis.Denilson Blake MD On 01/17/2023 08:56:17; [id number] [id number] 13:57:36 Test Item Value Reference Range Interpretation [...] foraminal stenosis.Denilson Blake MD On 01/17/2023 08:56:17; [id number] [id number] 13:57:36 Test Item Value Reference Range Interpretation [...] foraminal stenosis.Denilson Blake MD On 01/17/2023 08:56:17; [id number] [id number] 13:57:36 Test Item Value Reference Range Interpretation [...] foraminal stenosis.Denilson Blake MD On 01/17/2023 08:56:17; [id number] [id number] 16:27:58 Test Item Value Reference Range Interpretation [...] detected. Dallas Sotelo MD On 01/12/2023 11:26:39; [id number] [id number] 16:27:58 Test Item Value Reference Range Interpretation [...] detected. Dallas Sotelo MD On 01/12/2023 11:26:39; [id number] [id number] 16:27:58 Test Item Value Reference Range Interpretation [...] detected. Dallas Sotelo MD On 01/12/2023 11:26:39; [id number] [facility] [id number] 16:27:58 Test Item Value Reference Range Interpretation [...] detected. Dallas Sotelo MD On 01/12/2023 11:26:39; [id number] [facility] GLUCOSE (AUTOMATED)2022-08-30 14:07:55 Test Item Value Reference Range Interpretation Comments POCT GLU (test code = 6517225688) 183 mg/dL 70-110 H Lab Interpretation (test code = Abnormal 92309-2) [facility] GLUCOSE (AUTOMATED)2022-08-30 14:07:55 Test Item Value Reference Range Interpretation Comments POCT GLU (test code = 2662422221) 183 mg/dL 70-110 H Lab Interpretation (test code = Abnormal 84808-8) [facility] GLUCOSE (AUTOMATED)2022-08-27 14:46:51 Test Item Value Reference Range Interpretation Comments POCT GLU (test code = 3551071163) 149 mg/dL 70-110 H Lab Interpretation (test code = Abnormal 52970-7) [facility] GLUCOSE (AUTOMATED)2022-08-27 14:46:51 Test Item Value Reference Range Interpretation Comments POCT GLU (test code = 9770950260) 149 mg/dL 70-110 H Lab Interpretation (test code = Abnormal 57855-2) [facility] GLUCOSE (AUTOMATED)2022-08-23 14:55:06 Test Item Value Reference Range Interpretation Comments POCT GLU (test code = 5248669059) 147 mg/dL 70-110 H Lab Interpretation (test code = Abnormal 22698-5) [facility] GLUCOSE (AUTOMATED)2022-08-23 14:55:06 Test Item Value Reference Range Interpretation Comments POCT GLU (test code = 9746549430) 147 mg/dL 70-110 H Lab Interpretation (test code = Abnormal 66318-9) [facility] GLUCOSE (AUTOMATED)2022-08-17 14:57:56 Test Item Value Reference Range Interpretation Comments POCT GLU (test code = 9734447747) 151 mg/dL 70-110 H Lab Interpretation (test code = Abnormal 22060-0) [facility] GLUCOSE (AUTOMATED)2022-08-17 14:57:56 Test Item Value Reference Range Interpretation Comments POCT GLU (test code = 7770694732) 151 mg/dL 70-110 H Lab Interpretation (test code = Abnormal 89441-6) [facility] GLUCOSE (AUTOMATED)2022-08-16 15:03:01 Test Item Value Reference Range Interpretation Comments POCT GLU (test code = 2007046625) 151 mg/dL 70-110 H Lab Interpretation (test code = Abnormal 61484-7) [facility] GLUCOSE (AUTOMATED)2022-08-16 15:03:01 Test Item Value Reference Range Interpretation Comments POCT GLU (test code = 5039588854) 151 mg/dL 70-110 H Lab Interpretation (test code = Abnormal 71527-6) [facility] GLUCOSE (AUTOMATED)2022-08-12 14:55:21 Test Item Value Reference Range Interpretation Comments POCT GLU (test code = 6548230875) 145 mg/dL 70-110 H Lab Interpretation (test code = Abnormal 48382-6) [facility] GLUCOSE (AUTOMATED)2022-08-11 15:00:23 Test Item Value Reference Range Interpretation Comments POCT GLU (test code = 8128974436) 170 mg/dL 70-110 H Lab Interpretation (test code = Abnormal 84250-4) [facility] GLUCOSE (AUTOMATED)2022-08-10 14:45:54 Test Item Value Reference Range Interpretation Comments POCT GLU (test code = 5026167489) 205 mg/dL 70-110 H Lab Interpretation (test code = Abnormal 70116-9) [facility] GLUCOSE (AUTOMATED)2022-08-09 15:02:12 Test Item Value Reference Range Interpretation Comments POCT GLU (test code = 5408612025) 174 mg/dL 70-110 H Lab Interpretation (test code = Abnormal 77262-4) [facility] GLUCOSE (AUTOMATED)2022-08-04 15:10:49 Test Item Value Reference Range Interpretation Comments POCT GLU (test code = 2648599560) 186 mg/dL 70-110 H Lab Interpretation (test code = Abnormal 88206-8) [facility] GLUCOSE (AUTOMATED)2022-08-04 15:10:49 Test Item Value Reference Range Interpretation Comments POCT GLU (test code = 1009536818) 186 mg/dL 70-110 H Lab Interpretation (test code = Abnormal 64209-9) [facility] GLUCOSE (AUTOMATED)2022-08-04 15:10:49 Test Item Value Reference Range Interpretation Comments POCT GLU (test code = 3431629376) 186 mg/dL 70-110 H Lab Interpretation (test code = Abnormal 36158-5) [facility] GLUCOSE (AUTOMATED)2022-08-03 14:22:18 Test Item Value Reference Range Interpretation Comments POCT GLU (test code = 0713108956) 201 mg/dL 70-110 H Lab Interpretation (test code = Abnormal 97377-4) [facility] GLUCOSE (AUTOMATED)2022-08-03 14:22:18 Test Item Value Reference Range Interpretation Comments POCT GLU (test code = 0627947951) 201 mg/dL 70-110 H Lab Interpretation (test code = Abnormal 67856-5) [facility] GLUCOSE (AUTOMATED)2022-08-02 15:01:18 Test Item Value Reference Range Interpretation Comments POCT GLU (test code = 7332914898) 174 mg/dL 70-110 H Lab Interpretation (test code = Abnormal 95740-2) [facility] GLUCOSE (AUTOMATED)2022-08-02 15:01:18 Test Item Value Reference Range Interpretation Comments POCT GLU (test code = 5422202469) 174 mg/dL 70-110 H Lab Interpretation (test code = Abnormal 07933-5) [facility] GLUCOSE (AUTOMATED)2022-07-29 14:09:42 Test Item Value Reference Range Interpretation Comments POCT GLU (test code = 5196495175) 165 mg/dL 70-110 H Lab Interpretation (test code = Abnormal 16491-6) [facility] GLUCOSE (AUTOMATED)2022-07-29 14:09:42 Test Item Value Reference Range Interpretation Comments POCT GLU (test code = 2872982471) 165 mg/dL 70-110 H Lab Interpretation (test code = Abnormal 38466-8) [facility] GLUCOSE (AUTOMATED)2022-07-28 14:53:29 Test Item Value Reference Range Interpretation Comments POCT GLU (test code = 9136934952) 162 mg/dL 70-110 H Lab Interpretation (test code = Abnormal 41459-8) [facility] GLUCOSE (AUTOMATED)2022-07-28 14:53:29 Test Item Value Reference Range Interpretation Comments POCT GLU (test code = 0701752923) 162 mg/dL 70-110 H Lab Interpretation (test code = Abnormal 71043-5) [facility] GLUCOSE (AUTOMATED)2022-07-26 15:02:51 Test Item Value Reference Range Interpretation Comments POCT GLU (test code = 2574445926) 158 mg/dL 70-110 H Lab Interpretation (test code = Abnormal 46794-0) [facility] GLUCOSE (AUTOMATED)2022-07-23 14:56:28 Test Item Value Reference Range Interpretation Comments POCT GLU (test code = 3502856071) 198 mg/dL 70-110 H Lab Interpretation (test code = Abnormal 87192-9) [facility] GLUCOSE (AUTOMATED)2022-07-23 14:56:28 Test Item Value Reference Range Interpretation Comments POCT GLU (test code = 7490484232) 198 mg/dL 70-110 H Lab Interpretation (test code = Abnormal 24035-1) [facility] GLUCOSE (AUTOMATED)2022-07-21 15:01:28 Test Item Value Reference Range Interpretation Comments POCT GLU (test code = 8407450967) 148 mg/dL 70-110 H Lab Interpretation (test code = Abnormal 18457-9) [facility] GLUCOSE (AUTOMATED)2022-07-21 15:01:28 Test Item Value Reference Range Interpretation Comments POCT GLU (test code = 1853199386) 148 mg/dL 70-110 H Lab Interpretation (test code = Abnormal 14043-4) [facility] 15:08:54 Test Item Value Reference Range Interpretation Comments POCT GLU (test code = 7699695782) 144 mg/dL 70-110 H Lab Interpretation (test code = Abnormal 17399-4) [facility] GLUCOSE (AUTOMATED)2022-07-19 15:08:54 Test Item Value Reference Range Interpretation Comments POCT GLU (test code = 2755072053) 144 mg/dL 70-110 H Lab Interpretation (test code = Abnormal 60782-9) [facility] GLUCOSE (AUTOMATED)2022-07-16 14:55:49 Test Item Value Reference Range Interpretation Comments POCT GLU (test code = 9357922539) 138 mg/dL 70-110 H Lab Interpretation (test code = Abnormal 95243-5) [facility] GLUCOSE (AUTOMATED)2022-07-16 14:55:49 Test Item Value Reference Range Interpretation Comments POCT GLU (test code = 9182062749) 138 mg/dL 70-110 H Lab Interpretation (test code = Abnormal 82624-6) [facility] [facility] 20:45:44 Test Item Value Reference Range Interpretation Comments POCT GLU (test code = 2241355404) 113 mg/dL 70-110 H Lab Interpretation (test code = Abnormal 22046-6) [facility] GLUCOSE (AUTOMATED)2022-07-14 20:45:44 Test Item Value Reference Range Interpretation Comments POCT GLU (test code = 0525803042) 113 mg/dL 70-110 H Lab Interpretation (test code = Abnormal 95913-9) [facility] GLUCOSE (AUTOMATED)2022-07-12 15:45:19 Test Item Value Reference Range Interpretation Comments POCT GLU (test code = 7091874671) 139 mg/dL 70-110 H Lab Interpretation (test code = Abnormal 83704-7) [facility] GLUCOSE (AUTOMATED)2022-07-12 15:45:19 Test Item Value Reference Range Interpretation Comments POCT GLU (test code = 4526527767) 139 mg/dL 70-110 H Lab Interpretation (test code = Abnormal 12412-8) [facility] GLUCOSE (AUTOMATED)2022-07-09 14:01:41 Test Item Value Reference Range Interpretation Comments POCT GLU (test code = 4008519081) 144 mg/dL 70-110 H Lab Interpretation (test code = Abnormal 74092-8) [facility] GLUCOSE (AUTOMATED)2022-07-09 14:01:41 Test Item Value Reference Range Interpretation Comments POCT GLU (test code = 8600591335) 144 mg/dL 70-110 H Lab Interpretation (test code = Abnormal 77968-2) [facility] GLUCOSE (AUTOMATED)2022-07-07 14:04:49 Test Item Value Reference Range Interpretation Comments POCT GLU (test code = 4780255947) 148 mg/dL 70-110 H Lab Interpretation (test code = Abnormal 76792-3) [facility] GLUCOSE (AUTOMATED)2022-07-07 14:04:49 Test Item Value Reference Range Interpretation Comments POCT GLU (test code = 2018614523) 148 mg/dL 70-110 H Lab Interpretation (test code = Abnormal 80616-6) [facility] GLUCOSE (AUTOMATED)2022-07-05 14:28:48 Test Item Value Reference Range Interpretation Comments POCT GLU (test code = 0074068692) 169 mg/dL 70-110 H Lab Interpretation (test code = Abnormal 13871-3) [facility] GLUCOSE (AUTOMATED)2022-07-05 14:28:48 Test Item Value Reference Range Interpretation Comments POCT GLU (test code = 8100683905) 169 mg/dL 70-110 H Lab Interpretation (test code = Abnormal 03173-7) [facility] GLUCOSE (AUTOMATED)2022-06-01 19:54:37 Test Item Value Reference Range Interpretation Comments POCT GLU (test code = 9200478099) 127 mg/dL 70-110 H Lab Interpretation (test code = Abnormal 99220-2) [facility] GLUCOSE (AUTOMATED)2022-06-01 16:55:11 Test Item Value Reference Range Interpretation Comments POCT GLU (test code = 4435068473) 140 mg/dL 70-110 H Lab Interpretation (test code = Abnormal 09904-4) [facility] GLUCOSE (AUTOMATED)2022-06-01 16:55:11 Test Item Value Reference Range Interpretation Comments POCT GLU (test code = 2830130948) 140 mg/dL 70-110 H Lab Interpretation (test code = Abnormal 11188-1) [facility] GLUCOSE (AUTOMATED)2022-06-01 13:48:55 Test Item Value Reference Range Interpretation Comments POCT GLU (test code = 9467086675) 149 mg/dL 70-110 H Lab Interpretation (test code = Abnormal 40683-0) [facility] GLUCOSE (AUTOMATED)2022-06-01 13:48:55 Test Item Value Reference Range Interpretation Comments POCT GLU (test code = 1094788373) 149 mg/dL 70-110 H Lab Interpretation (test code = Abnormal 59894-5) [facility] GLUCOSE (AUTOMATED)2022-06-01 02:26:40 Test Item Value Reference Range Interpretation Comments POCT GLU (test code = 6369376199) 245 mg/dL 70-110 H Lab Interpretation (test code = Abnormal 91112-8) [facility] GLUCOSE (AUTOMATED)2022-06-01 02:26:40 Test Item Value Reference Range Interpretation Comments POCT GLU (test code = 1030230765) 245 mg/dL 70-110 H Lab Interpretation (test code = Abnormal 07122-8) [facility] ACT LOW [id number] 20:21:59 Test Item Value Reference Range Interpretation Comments ACTLR (test code = See_Comment H [Automat ed message] 1726278997) The system [employer] generated this result transmitted ref erence range: 89 - 169 Seconds. The reference range was not used to int erpret this result as normal/abnormal . Lab Interpretation (test Abnormal code = 49231-0) [facility] ACT LOW [id number] 20:21:59 Test Item Value Reference Range Interpretation Comments ACTLR (test code = See_Comment H [Automat ed message] 1727052502) The system [employer] generated this result transmitted ref erence range: 89 - 169 Seconds. The reference range was not used to int erpret this result as normal/abnormal . Lab Interpretation (test Abnormal code = 97166-2) [facility] ACT LOW [id number] 20:14:25 Test Item Value Reference Range Interpretation Comments ACTLR (test code = See_Comment H [Automat ed message] 7818057968) The system [employer] generated this result transmitted ref erence range: 89 - 169 Seconds. The reference range was not used to int erpret this result as normal/abnormal . Lab Interpretation (test Abnormal code = 68924-6) [facility] ACT LOW [id number] 20:14:25 Test Item Value Reference Range Interpretation Comments ACTLR (test code = See_Comment H [Automat ed message] 0412145199) The system [employer] generated this result transmitted ref erence range: 89 - 169 Seconds. The reference range was not used to int erpret this result as normal/abnormal . Lab Interpretation (test Abnormal code = 94601-7) [facility] GLUCOSE (AUTOMATED)2022-05-31 16:44:13 Test Item Value Reference Range Interpretation Comments POCT GLU (test code = 2437017527) 122 mg/dL 70-110 H Lab Interpretation (test code = Abnormal 04432-7) [facility] GLUCOSE (AUTOMATED)2022-05-31 16:44:13 Test Item Value Reference Range Interpretation Comments POCT GLU (test code = 9898101531) 122 mg/dL 70-110 H Lab Interpretation (test code = Abnormal 21810-0) [facility] GLUCOSE (AUTOMATED)2022-05-31 12:53:38 Test Item Value Reference Range Interpretation Comments POCT GLU (test code = 9231307462) 149 mg/dL 70-110 H Lab Interpretation (test code = Abnormal 40911-1) [facility] GLUCOSE (AUTOMATED)2022-05-31 12:53:38 Test Item Value Reference Range Interpretation Comments POCT GLU (test code = 7230393354) 149 mg/dL 70-110 H Lab Interpretation (test code = Abnormal 97953-2) [facility] GLUCOSE (AUTOMATED)2022-05-31 02:07:24 Test Item Value Reference Range Interpretation Comments POCT GLU (test code = 0077062378) 249 mg/dL 70-110 H Lab Interpretation (test code = Abnormal 51790-2) [facility] GLUCOSE (AUTOMATED)2022-05-31 02:07:24 Test Item Value Reference Range Interpretation Comments POCT GLU (test code = 2485701096) 249 mg/dL 70-110 H Lab Interpretation (test code = Abnormal 99977-5) [facility] GLUCOSE (AUTOMATED)2022-05-30 22:49:02 Test Item Value Reference Range Interpretation Comments POCT GLU (test code = 1442646651) 216 mg/dL 70-110 H Lab Interpretation (test code = Abnormal 98905-5) [facility] GLUCOSE (AUTOMATED)2022-05-30 22:49:02 Test Item Value Reference Range Interpretation Comments POCT GLU (test code = 5078171615) 216 mg/dL 70-110 H Lab Interpretation (test code = Abnormal 40826-8) [facility] GLUCOSE (AUTOMATED)2022-05-30 17:45:21 Test Item Value Reference Range Interpretation Comments POCT GLU (test code = 6151914874) 287 mg/dL 70-110 H Lab Interpretation (test code = Abnormal 49619-9) [facility] GLUCOSE (AUTOMATED)2022-05-30 17:45:21 Test Item Value Reference Range Interpretation Comments POCT GLU (test code = 9269497495) 287 mg/dL 70-110 H Lab Interpretation (test code = Abnormal 53882-3) [facility] GLUCOSE (AUTOMATED)2022-05-30 14:09:34 Test Item Value Reference Range Interpretation Comments POCT GLU (test code = 8842765164) 148 mg/dL 70-110 H Lab Interpretation (test code = Abnormal 65854-8) [facility] GLUCOSE (AUTOMATED)2022-05-30 14:09:34 Test Item Value Reference Range Interpretation Comments POCT GLU (test code = 7437446447) 148 mg/dL 70-110 H Lab Interpretation (test code = Abnormal 97094-0) [facility] GLUCOSE (AUTOMATED)2022-05-30 02:19:47 Test Item Value Reference Range Interpretation Comments POCT GLU (test code = 8097157292) 174 mg/dL 70-110 H Lab Interpretation (test code = Abnormal 78030-1) [facility] GLUCOSE (AUTOMATED)2022-05-30 02:19:47 Test Item Value Reference Range Interpretation Comments POCT GLU (test code = 1985697505) 174 mg/dL 70-110 H Lab Interpretation (test code = Abnormal 91136-5) [facility] GLUCOSE (AUTOMATED)2022-05-29 23:37:49 Test Item Value Reference Range Interpretation Comments POCT GLU (test code = 3974697630) 219 mg/dL 70-110 H Lab Interpretation (test code = Abnormal 31533-0) [facility] GLUCOSE (AUTOMATED)2022-05-29 23:37:49 Test Item Value Reference Range Interpretation Comments POCT GLU (test code = 6302646375) 219 mg/dL 70-110 H Lab Interpretation (test code = Abnormal 29561-2) [facility] GLUCOSE (AUTOMATED)2022-05-29 18:23:57 Test Item Value Reference Range Interpretation Comments POCT GLU (test code = 1803725876) 150 mg/dL 70-110 H Lab Interpretation (test code = Abnormal 54516-8) [facility] 18:23:57 Test Item Value Reference Range Interpretation Comments POCT GLU (test code = 2479640679) 150 mg/dL 70-110 H Lab Interpretation (test code = Abnormal 90754-4) [facility] 14:51:30 Test Item Value Reference Range Interpretation Comments Height (test code = in 5167805550) Weight (test code = lbs 1926117182) Systolic BP (test code = mmHg 3235378754) Diastolic BP (test code mmHg = 7367787949) Heart Rate (test code = bpm 3101162658) BSA (test code = 2.13 m2 8498468475) Ao root annulus (test 2.9 cm code = 2341294350) Ao root diam (test code 2.90 cm = 8544519811) Aortic root (test code = 2.9 cm 1736850456) LVOT diameter (test code 1.87 cm = 7176069601) LVOT area (test code = 2.80 cm2 9443637318) LVIDD (test code = 5.30 cm 6226943266) Left Ventricular End 133.6 mL Diastolic Volume by Teichholz Method (test code = 1605840) IVS (test code = 1.19 cm 7167714019) Interventricular Septum 1.19 cm Diastolic Thickness by 2D (test code = 9373323) LVPWD (test code = 1.19 cm 3045874518) PW (test code = 1.19 cm 0.6-1.3 8820853907) EF(Teich) (test code = 60.10 % 2738442744) LVIDS (test code = 3.60 cm 5674019998) Left Ventricular End 53.3 mL Systolic Volume by Teichholz Method (test code = 9032074) FS (test code = 32 % 4703584245) EF - 2D (test code = 60.10 % 67547546) LA size (test code = 3.6 cm 8687719536) LAV(MOD-sp4) (test code 65.20 mL = 6293047254) MV stenosis pressure 1/2 55.9 ms time (test code = 5300097630) MV Peak E Shayna (test code 95.1 cm/s = 6423204723) E wave decelartion time 0.19 s (test code = 2773964349) MV Peak A Shayna (test code 112.9 cm/s = 3050833269) E/A ratio (test code = ratio 9733974656) MV Prop V (test code = 42.10 cm/s 9689021228) MV E/e' septal (test 12.0 cm/s code = 6666681167) Tapse (test code = 1.96 cm 1568230166) LVOT stroke volume (test 65.20 cm3 code = 0313320298) LVOT peak shayna (test code 117.0 cm/s = 2923483681) LVOT mn grad (test code mmHg = 1009428403) AV LVOT peak gradient mmHg (test code = 7129720693) LVOT peak VTI (test code 23.7 cm = 0914579834) LV V1 mean (test code = 81.20 cm/s 9777398170) Aortic valve mean 108.0 cm/s velocity (test code = 0040708084) Ao peak shayna (test code = 148.9 cm/s 4332417351) Ao VTI (test code = 29.3 cm 7732137080) AV area by cont VTI 2.2 cm2 (test code = 2828917229) AV area peak shayna (test 2.2 cm2 code = 0250834983) Ao max PG (test code = 8.90 mm[Hg] 7725705686) AV peak gradient (test mmHg code = 6316922530) AV valve area (test code 2.23 cm2 = 2694876321) AV mean gradient (test mmHg code = 4961331075) Radiology Study observation (narrative) (test code = 28006-0) BECKY (test code = BECKY) ?Left?Ventricle: Left [...] 2D, color flow Doppler and spectral Doppler. [facility] 14:51:30 Test Item Value Reference Range Interpretation Comments Height (test code = in 5629762052) Weight (test code = lbs 9619626425) Systolic BP (test code = mmHg 1288040169) Diastolic BP (test code mmHg = 2290188595) Heart Rate (test code = bpm 9662554697) BSA (test code = 2.13 m2 0316532818) Ao root annulus (test 2.9 cm code = 8518773462) Ao root diam (test code 2.90 cm = 3497639594) Aortic root (test code = 2.9 cm 0183260660) LVOT diameter (test code 1.87 cm = 8018629536) LVOT area (test code = 2.80 cm2 3791400670) LVIDD (test code = 5.30 cm 3357465978) Left Ventricular End 133.6 mL Diastolic Volume by Teichholz Method (test code = 8960130) IVS (test code = 1.19 cm 5038943160) Interventricular Septum 1.19 cm Diastolic Thickness by 2D (test code = 7778448) LVPWD (test code = 1.19 cm 7132083710) PW (test code = 1.19 cm 0.6-1.1 1226883453) EF(Teich) (test code = 60.10 % 7881693699) LVIDS (test code = 3.60 cm 2260704940) Left Ventricular End 53.3 mL Systolic Volume by Teichholz Method (test code = 5663791) FS (test code = 32 % 8194409256) EF - 2D (test code = 60.10 % 06777525) LA size (test code = 3.6 cm 5009407229) LAV(MOD-sp4) (test code 65.20 mL = 0861136545) MV stenosis pressure 1/2 55.9 ms time (test code = 9150376002) MV Peak E Shayna (test code 95.1 cm/s = 0301873409) E wave decelartion time 0.19 s (test code = 0167234355) MV Peak A Shayna (test code 112.9 cm/s = 1275308223) E/A ratio (test code = ratio 2363057534) MV Prop V (test code = 42.10 cm/s 6028259319) MV E/e' septal (test 12.0 cm/s code = 1661617129) Tapse (test code = 1.96 cm 3869364508) LVOT stroke volume (test 65.20 cm3 code = 7705964930) LVOT peak shayna (test code 117.0 cm/s = 1798397821) LVOT mn grad (test code mmHg = 1052504303) AV LVOT peak gradient mmHg (test code = 1062443626) LVOT peak VTI (test code 23.7 cm = 4307639212) LV V1 mean (test code = 81.20 cm/s 4631716167) Aortic valve mean 108.0 cm/s velocity (test code = 9894083238) Ao peak shayna (test code = 148.9 cm/s 3200108687) Ao VTI (test code = 29.3 cm 7433524492) AV area by cont VTI 2.2 cm2 (test code = 9175433674) AV area peak shayna (test 2.2 cm2 code = 0088183803) Ao max PG (test code = 8.90 mm[Hg] 2816410159) AV peak gradient (test mmHg code = 8928958634) AV valve area (test code 2.23 cm2 = 9741820241) AV mean gradient (test mmHg code = 4497517635) Radiology Study observation (narrative) (test code = 92232-3) BECKY (test code = BECKY) ?Left?Ventricle: Left [...] 2D, color flow Doppler and spectral Doppler. [facility] GLUCOSE (AUTOMATED)2022-05-29 13:48:56 Test Item Value Reference Range Interpretation Comments POCT GLU (test code = 4156960202) 139 mg/dL 70-110 H Lab Interpretation (test code = Abnormal 58921-7) [facility] GLUCOSE (AUTOMATED)2022-05-29 13:48:56 Test Item Value Reference Range Interpretation Comments POCT GLU (test code = 2876941520) 139 mg/dL 70-110 H Lab Interpretation (test code = Abnormal 55966-2) [facility]2022-05-29 07:23:47 Test Item Value Reference Range Interpretation Comments APTT Patient (test code See_Comment H [Au tomated message] = 3173-2) The system [employer] generated this result transmitted ref erence range: 26 - 36 Seconds. The reference range was not used to int erpret this result as normal/abnormal . Lab Interpretation (test Abnormal code = 86461-4) [facility] use with [facility] Infusion[facility]2022-05-29 07:23:47 Test Item Value Reference Range Interpretation Comments APTT Patient (test code See_Comment H [Au tomated message] = 3173-2) The system [employer] generated this result transmitted ref erence range: 26 - 36 Seconds. The reference range was not used to int erpret this result as normal/abnormal . Lab Interpretation (test Abnormal code = 98547-7) [facility] GLUCOSE (AUTOMATED)2022-05-29 01:12:19 Test Item Value Reference Range Interpretation Comments POCT GLU (test code = 3573749865) 187 mg/dL 70-110 H Lab Interpretation (test code = Abnormal 53430-4) [facility] GLUCOSE (AUTOMATED)2022-05-29 01:12:19 Test Item Value Reference Range Interpretation Comments POCT GLU (test code = 4291818793) 187 mg/dL 70-110 H Lab Interpretation (test code = Abnormal 86106-0) General acute hospital CONSULT [id number] 23:13:41 ABSOLUTE NEUTROPHILIA. NO BLASTS IDENTIFIED. MICROCYTIC NORMOCHROMIC ERYTHROCYTES. PLATELETS ARE UNREMARKABLE.General acute hospital CONSULT [id number] 23:13:41ABSOLUTE NEUTROPHILIA. NO BLASTS IDENTIFIED. MICROCYTIC NORMOCHROMIC ERYTHROCYTES. PLATELETS ARE UNREMARKABLE. [place] [id number] 22:20:56 Test Item Value Reference Range Interpretation Comments APTT Patient (test See_Comment H [Automat ed code = 3173-2) message] The system which generated this result transmitted reference range : 23 - 38 Seconds . The reference range was not used to interpr et this result as normal/abnormal . BECKY (test code = BECKY) The [facility] patient population mean normal value for aPTT is 30 seconds. Lab Interpretation Abnormal (test code = 11542-3) [place] [id number] 22:20:56 Test Item Value Reference Range Interpretation Comments APTT Patient (test See_Comment H [Automat ed code = 3173-2) message] The system which generated this result transmitted reference range : 23 - 38 Seconds . The reference range was not used to interpr et this result as normal/abnormal . BECKY (test code = BECKY) The [facility] patient population mean normal value for aPTT is 30 seconds. Lab Interpretation Abnormal (test code = 02610-8) [facility], [id number] 18:45:58 Test Item Value Reference Range Interpretation Comments VIT B12 (test code = 461 pg/mL 240-930 3076508215) BECKY (test code = BECKY) Biotin has been reported to cause a positive bias, interpret results relative to patient's use of biotin. Lab Interpretation (test Normal code = 18811-5) [facility], [id number] 18:45:58 Test Item Value Reference Range Interpretation Comments VIT B12 (test code = 461 pg/mL 240-930 5482952095) BECKY (test code = BECKY) Biotin has been reported to cause a positive bias, interpret results relative to patient's use of biotin. Lab Interpretation (test Normal code = 57896-7) [facility] [id number] 18:35:53 Test Item Value Reference Interpretation Comments Range TROPONIN I (test 0.026 ng/mL See_Comment [Automated code = 0761624235) message] The system which generated this result [...] biotin. Lab Interpretation Normal (test code = 21160-4) [facility] [id number] 18:35:53 Test Item Value Reference Interpretation Comments Range TROPONIN I (test 0.026 ng/mL See_Comment [Automated code = 7697017680) message] The system which generated this result [...] biotin. Lab Interpretation Normal (test code = 07041-2) [facility] 15:50:31 Test Item Value Reference Range Interpretation Comments APTT Patient (test See_Comment [Automat ed code = 3173-2) message] The system which generated this result transmitted reference range : 23 - 38 Seconds . The reference range was not used to interpr et this result as normal/abnormal . BECKY (test code = BECKY) The [facility] patient population mean normal value for aPTT is 30 seconds. Lab Interpretation Normal (test code = 11069-4) [facility] 15:50:31 Test Item Value Reference Range Interpretation Comments APTT Patient (test See_Comment [Automat ed code = 3173-2) message] The system which generated this result transmitted reference range : 23 - 38 Seconds . The reference range was not used to interpr et this result as normal/abnormal . BECKY (test code = BECKY) The [facility] patient population mean normal value for aPTT is 30 seconds. Lab Interpretation Normal (test code = 50225-9) [facility] (PT[facility] / [id number] 15:48:28 Test Item Value Reference Range Interpretation Comments PROTIME PATIENT (test See_Comment [Auto mated message] code = 5964-2) The system wh ich generated this result transmitted ref erence range: 12.0 - 1 4.7 Seconds. The re ference range was not u sed to interpret this result as normal/abnor mal. INR (test code = 6301-6) Nor mal INR <1.1; Warfarin Therap eutic range 2.0 to 3. 0 or 2.5 to 3.5, dep ending upon the indica tions. Lab Interpretation (test Normal code = 77750-0) [facility] ([facility] / [id number] 15:48:28 Test Item Value Reference Range Interpretation Comments PROTIME PATIENT (test See_Comment [Auto mated message] code = 5964-2) The system wh ich generated this result transmitted ref erence range: 12.0 - 1 4.7 Seconds. The re ference range was not u sed to interpret this result as normal/abnor mal. INR (test code = 6301-6) Nor mal INR <1.1; Warfarin Therap eutic range 2.0 to 3. 0 or 2.5 to 3.5, dep ending upon the indica tions. Lab Interpretation (test Normal code = 77396-2) [facility] [id number] 14:27:01 Test Item Value Reference Interpretation Comments Range TROPONIN I (test 0.040 ng/mL See_Comment H [Automated code = 1408744421) message] The system which generated this result [...] biotin. Lab Interpretation Abnormal (test code = 75782-1) [facility] [id number] 14:27:01 Test Item Value Reference Interpretation Comments Range TROPONIN I (test 0.040 ng/mL See_Comment H [Automated code = 5213173133) message] The system which generated this result [...] biotin. Lab Interpretation Abnormal (test code = 57254-4) [facility], [id number] 14:05:45 Test Item Value Reference Range Interpretation Comments VIT D 25OH (test code = 25-80 L 01586-6) BECKY (test code = BECKY) Deficiency: <20 ng/mLInsufficiency: 20-24 ng/mLOptimal: 25-80 ng/mL Lab Interpretation (test Abnormal code = 19321-2) [facility], [id number] 14:05:45 Test Item Value Reference Range Interpretation Comments VIT D 25OH (test code = 25-80 L 86711-2) BECKY (test code = BECKY) Deficiency: <20 ng/mLInsufficiency: 20-24 ng/mLOptimal: 25-80 ng/mL Lab Interpretation (test Abnormal code = 66658-2) [facility]2022-[facility]-16 11:51:43 Test Item Value Reference Interpretation Comments Range Procalcitonin (test 0.03 ng/mL See_Comment [Automa sin code = 5972193658) message] The system which generated this result [...] lung abscess/empyema. For further information please refer to:[email or web address] Lab Interpretation Normal (test code = 97327-1) [facility]2022-[facility]-16 11:51:43 Test Item Value Reference Interpretation Comments Range Procalcitonin (test 0.03 ng/mL See_Comment [Automa sin code = 0198936331) message] The system which generated this result [...] lung abscess/empyema. For further information please refer to:[email or web address] Lab Interpretation Normal (test code = 13419-3) [facility] [id number] 06:23:07 Test Item Value Reference Range Interpretation Comments IRON (test code = 9042618335) 33 ug/dL 50-160 L TIBC (test code = 5373955601) 455 ug/dL 250-410 H % FE SAT (test code = 9279382239) 7 % 20-50 L Lab Interpretation (test code = Abnormal 94318-5) [id number] 06:23:07 Test Item Value Reference Range Interpretation Comments IRON (test code = 4936257886) 33 ug/dL 50-160 L TIBC (test code = 9284002081) 455 ug/dL 250-410 H % FE SAT (test code = 9319431410) 7 % 20-50 L Lab Interpretation (test code = Abnormal 52732-9) [facility] [id number] 06:16:26 Test Item Value Reference Range Interpretation Comments FERRITIN (test code = 7.5 ng/mL 11-264 L [id number]) BECKY (test code = BECKY) Biotin has been reported to cause a negative bias, interpret results relative to patient's use of biotin. Lab Interpretation (test Abnormal code = 58047-2) [facility] [id number] 06:16:26 Test Item Value Reference Range Interpretation Comments FERRITIN (test code = 7.5 ng/mL 11-264 L [id number]) BECKY (test code = BECKY) Biotin has been reported to cause a negative bias, interpret results relative to patient's use of biotin. Lab Interpretation (test Abnormal code = 83252-8) [facility] [id number] 06:12:28 Test Item Value Reference Range Interpretation Comments TSH (test code = See_Comment [Automated message] [id number]) The system [employer] generated this result transmitted ref erence range: 0.45 - 4 .70 mIU/L. The refe rence range was not u sed to interpret this result as normal/abnor mal. Lab Interpretation (test Normal code = 86440-1) [facility] [id number] 06:12:28 Test Item Value Reference Range Interpretation Comments TSH (test code = See_Comment [Automated message] 3289709158) The system [employer] generated this result transmitted ref erence range: 0.45 - 4 .70 mIU/L. The refe rence range was not u sed to interpret this result as normal/abnor mal. Lab Interpretation (test Normal code = 15303-8) [facility] [id number] 06:10:11 Test Item Value Reference Range Interpretation Comments ESR (test code = See_Comment H [Automated message] 19468-1) The system [employer] generated this result transmitted ref erence range: 0 - 20 m m/HR. The reference r neli was not used to interpret this result as normal/abnor mal. Lab Interpretation (test Abnormal code = 77477-2) [facility] [id number] 06:10:11 Test Item Value Reference Range Interpretation Comments ESR (test code = See_Comment H [Automated message] 56520-3) The system [employer] generated this result transmitted ref erence range: 0 - 20 m m/HR. The reference r neli was not used to interpret this result as normal/abnor mal. Lab Interpretation (test Abnormal code = 29447-0) [facility] [id number] 05:53:48 Test Item Value Reference Interpretation Comments Range TROPONIN I (test 0.042 ng/mL See_Comment H [Automated code = 5354451888) message] The system which generated this result [...] biotin. Lab Interpretation Abnormal (test code = 66203-9) [facility] [id number] 05:53:48 Test Item Value Reference Interpretation Comments Range TROPONIN I (test 0.042 ng/mL See_Comment H [Automated code = 9853353265) message] The system which generated this result [...] biotin. Lab Interpretation Abnormal (test code = 61950-3) [facility]-TER[facility] [id number] 05:50:44 Test Item Value Reference Range Interpretation Comments NT-proBNP (test code 139 pg/mL See_Comment H [Autom ated = 2445464660) message] The system which generated this result transmitted reference range : <=125. The reference range was not used to interpret this result as normal/abnormal . BECKY (test code = BECKY) Biotin has been reported to cause a negative bias, interpret results relative to patient's use of biotin. Lab Interpretation Abnormal (test code = 22002-8) [facility] [id number] 05:50:44 Test Item Value Reference Range Interpretation Comments NT-proBNP (test code 139 pg/mL See_Comment H [Autom ated = 0660617772) message] The system which generated this result transmitted reference range : <=125. The reference range was not used to interpret this result as normal/abnormal . BECKY (test code = BECKY) Biotin has been reported to cause a negative bias, interpret results relative to patient's use of biotin. Lab Interpretation Abnormal (test code = 13148-8) [facility]OSPHORUS2022-09-16 05:41:43 Test Item Value Reference Range Interpretation Comments PHOSPHORUS (test code = 5541072484) 3.6 mg/dL 2.5-5 Lab Interpretation (test code = Normal 43178-5) [facility]burgLIPID PANEL (50645)(TOTAL CHOLESTEROL, TRIGLYCERIDES, HDL)2022-05-28 05:41:43 Test Item Value Reference Range Interpretation Comments CHOL (test code = 177 mg/dL 120-200 2265836851) HDL (test code = 31 mg/dL See_Comment L [Automated message] 5083765327) The system [employer] generated this result transmit sin reference range : >=50. The refer ence range was not u sed to interpret th is result as normal/abnormal . HDLC RATIO (test code = See_Comment H [Au tomated message] 1094086698) The system [employer] generated this result transmit sin reference range : <=4.5. The refe rence range was not u sed to interpret th is result as normal/abnormal . TRIG (test code = 214 mg/dL 30-170 H 0592502077) LDL CHOL (test code = 103 mg/dL See_Comment [Auto mated message] 90279-0) The system [employer] generated this result transmit sin reference range : <=160. The refe rence range was not u sed to interpret th is result as normal/abnormal . VLDL (test code = 43 mg/dL 5-60 2677861811) Lab Interpretation (test Abnormal code = 61525-5) [facility]2022-09-16 05:41:43 Test Item Value Reference Range Interpretation Comments PHOSPHORUS (test code = 7969874001) 3.6 mg/dL 2.5-5 Lab Interpretation (test code = Normal 53606-6) [facility]IP[facility] (43136)(TOTAL CHOLESTEROL, TRIGLYCERIDES, HDL)2022-05-28 05:41:43 Test Item Value Reference Range Interpretation Comments CHOL (test code = 177 mg/dL 120-200 8940129735) HDL (test code = 31 mg/dL See_Comment L [Automated message] 9099490539) The system [employer] generated this result transmit sin reference range : >=50. The refer ence range was not u sed to interpret th is result as normal/abnormal . HDLC RATIO (test code = See_Comment H [Au tomated message] 6383074140) The system [employer] generated this result transmit sin reference range : <=4.5. The refe rence range was not u sed to interpret th is result as normal/abnormal . TRIG (test code = 214 mg/dL 30-170 H 8002138719) LDL CHOL (test code = 103 mg/dL See_Comment [Auto mated message] 49585-5) The system [employer] generated this result transmit sin reference range : <=160. The refe rence range was not u sed to interpret th is result as normal/abnormal . VLDL (test code = 43 mg/dL 5-60 4056229115) Lab Interpretation (test Abnormal code = 86128-3) [facility]YCOSYLATED HEMOGLOBIN (A1C)2022-05-28 05:33:04 Test Item Value Reference Range Interpretation Comments HGB A1C (test code = 9.0 % 4-5.7 H 4548-4) BECKY (test code = BECKY) Reference RangesNormal: <5.7%Prediabetes: 5.7 - 6.4%Diabetes: > 6.5% Lab Interpretation (test Abnormal code = 20264-5) [facility]YCOSYLATED HEMOGLOBIN (A1C)2022-05-28 05:33:04 Test Item Value Reference Range Interpretation Comments HGB A1C (test code = 9.0 % 4-5.7 H 4548-4) BECKY (test code = BECKY) Reference RangesNormal: <5.7%Prediabetes: 5.7 - 6.4%Diabetes: > 6.5% Lab Interpretation (test Abnormal code = 05002-1) [facility] [id number] 23:55:32 Test Item Value Reference Interpretation Comments Range TROPONIN I (test 0.041 ng/mL See_Comment H [Automated code = 0034512156) message] The system which generated this result [...] biotin. Lab Interpretation Abnormal (test code = 39584-4) [facility] [id number] 23:55:32 Test Item Value Reference Interpretation Comments Range TROPONIN I (test 0.041 ng/mL See_Comment H [Automated code = 6588240374) message] The system which generated this result [...] biotin. Lab Interpretation Abnormal (test code = 21468-4) [facility]2022-09-15 23:43:50 Test Item Value Reference Range Interpretation Comments MAGNESIUM (test code = 4477626800) 1.9 mg/dL 1.7-2.4 Lab Interpretation (test code = Normal 66810-8) [facility] 23:43[facility]50 Test Item Value Reference Range Interpretation Comments MAGNESIUM (test code = 2373433144) 1.9 mg/dL 1.7-2.4 Lab Interpretation (test code = Normal 99701-4) [facility]. METABOLIC PANEL (93115)2022-05-27 23:43:49 Test Item Value Reference Range Interpretation Comments NA (test code = 136 mmol/L 135-145 2910191121) K (test code = 5.4 mmol/L 3.5-5 H 6505430026) CL (test code = 106 mmol/L 98-108 9668676456) CO2 TOTAL (test code = 25 mmol/L 23-31 9356066051) AGAP (test code = 2-16 8927353417) BUN (test code = 14 mg/dL 7-23 7946707860) GLUCOSE (test code = 188 mg/dL 70-110 H 0774785763) CREATININE (test code = 0.51 mg/dL 0.5-1.04 7523408132) TOTAL BILI (test code = 0.5 mg/dL 0.1-1.1 7133054349) CALCIUM (test code = 9.6 mg/dL 8.6-10.6 8371136051) T PROTEIN (test code = 7.3 g/dL 6.3-8.2 0576633189) ALBUMIN (test code = 4.2 g/dL 3.5-5 8424496774) ALK PHOS (test code = 158 U/L 34-122 H 1019641138) ALTv (test code = 17 U/L 5-35 2-6) AST(SGOT) (test code = 28 U/L 13-40 0196023396) eGFR (test code = mL/min/1.73m2 7338448505) BECKY (test code = BECKY) Association of [...] tests). Lab Interpretation Abnormal (test code = 11614-0) [facility]IP[facility], [id number] 23:43:49 Test Item Value Reference Range Interpretation Comments LIPASE (test code = 8919548931) 169 U/L 0-220 Lab Interpretation (test code = Normal 11940-3) [facility]. METABOLIC PANEL (88425)2022-05-27 23:43:49 Test Item Value Reference Range Interpretation Comments NA (test code = 136 mmol/L 135-145 2578796278) K (test code = 5.4 mmol/L 3.5-5 H 6323838273) CL (test code = 106 mmol/L 98-108 5894489584) CO2 TOTAL (test code = 25 mmol/L 23-31 4397857458) AGAP (test code = 2-16 2574427123) BUN (test code = 14 mg/dL 7-23 3986559813) GLUCOSE (test code = 188 mg/dL 70-110 H 7198476137) CREATININE (test code = 0.51 mg/dL 0.5-1.04 2570900596) TOTAL BILI (test code = 0.5 mg/dL 0.1-1.8 3410757848) CALCIUM (test code = 9.6 mg/dL 8.6-10.6 6127716540) T PROTEIN (test code = 7.3 g/dL 6.3-8.2 8547297430) ALBUMIN (test code = 4.2 g/dL 3.5-5 5011591100) ALK PHOS (test code = 158 U/L 34-122 H 4434949406) ALTv (test code = 17 U/L 5-35 1742-6) AST(SGOT) (test code = 28 U/L 13-40 3419916816) eGFR (test code = mL/min/1.73m2 5491858318) BECKY (test code = BECKY) Association of [...] tests). Lab Interpretation Abnormal (test code = 48049-1) [facility], [id number] 23:43:49 Test Item Value Reference Range Interpretation Comments LIPASE (test code = 0102573063) 169 U/L 0-220 Lab Interpretation (test code = Normal 40802-1) [facility]burgaPTT2022-09-15 23:41:09 Test Item Value Reference Range Interpretation Comments APTT Patient (test See_Comment H [Automat ed code = 3173-2) message] The system which generated this result transmitted reference range : 23 - 38 Seconds . The reference range was not used to interpr et this result as normal/abnormal . BECKY (test code = BECKY) The [facility] patient population mean normal value for aPTT is 30 seconds. Lab Interpretation Abnormal (test code = 42335-6) [facility]gaPTT2022-[facility]-15 23:41:09 Test Item Value Reference Range Interpretation Comments APTT Patient (test See_Comment H [Automat ed code = 3173-2) message] The system which generated this result transmitted reference range : 23 - 38 Seconds . The reference range was not used to interpr et this result as normal/abnormal . BECKY (test code = BECKY) The [facility] patient population mean normal value for aPTT is 30 seconds. Lab Interpretation Abnormal (test code = 62235-4) [facility]burgPROTHROMBIN TIME / [id number] 23:38:51 Test Item Value Reference Range Interpretation Comments PROTIME PATIENT (test See_Comment [Auto mated message] code = 5964-2) The system wh ich generated this result transmitted ref erence range: 12.0 - 1 4.7 Seconds. The re ference range was not u sed to interpret this result as normal/abnor mal. INR (test code = 6301-6) Nor mal INR <1.1; Warfarin Therap eutic range 2.0 to 3. 0 or 2.5 to 3.5, dep ending upon the indica tions. Lab Interpretation (test Normal code = 46901-3) [facility]burgPROTHROMBIN [facility] / [id number] 23:38:51 Test Item Value Reference Range Interpretation Comments PROTIME PATIENT (test See_Comment [Auto mated message] code = 5964-2) The system wh ich generated this result transmitted ref erence range: 12.0 - 1 4.7 Seconds. The re ference range was not u sed to interpret this result as normal/abnor mal. INR (test code = 6301-6) Nor mal INR <1.1; Warfarin Therap eutic range 2.0 to 3. 0 or 2.5 to 3.5, dep ending upon the indica tions. Lab Interpretation (test Normal code = 19342-5) [facility]CBC WITH [id number] 23:32:31 Test Item Value Reference Range Interpretation Comments WBC (test code = See_Comment H [Automated 6690-2) message] The sy stem which generated this result transmitted reference range : 4.30 - 11.10 10*3/?L. The reference range was not used to interpret this result as normal/abnormal . RBC (test code = See_Comment H [Automated 359-8) message] The sy stem which generated this [...] RDW-SD (test code = 41.9 fL 39-49.9 92997-2) RDW-CV (test code = 15.9 % 12-15.5 H 788-0) PLT (test code = See_Comment [Automated 777-3) message] The sy stem which generated this result transmitted reference range : 166 - 358 10*3/ ?L. The reference r neli was not used to interpret this result as normal/abnormal . MPV (test code = 11.0 fL 9.5-12.9 60733-6) NRBC/100 WBC (test See_Comment [Automat ed code = 7389056660) message] The system which generated this result transmitted reference range : 0.0 - 10.0 /100 WBCs. The refer ence range was not u sed to interpret th is result as normal/abnormal . NRBC x10^3 (test code See_Comment [Auto mated = 7176425054) message] The s ystem which generated this result transmitted reference range : 10*3/?L. The reference range was not used to interpret this result as normal/abnormal . GRAN MAT (NEUT) % 66.4 % (test code = 770-8) IMM GRAN % (test code 0.30 % = 1967616765) LYMPH % (test code = 24.5 % 736-9) MONO % (test code = 6.7 % 5905-5) EOS % (test code = 1.5 % 713-8) BASO % (test code = 0.6 % 706-2) GRAN MAT x10^3(ANC) 7.67 10*3/uL 1.88-7.09 H (test code = 2263795914) IMM GRAN x10^3 (test 0.04 10*3/uL 0-0.06 code = 7183112665) LYMPH x10^3 (test code 2.83 10*3/uL 1.32-3.29 = 731-0) MONO x10^3 (test code 0.77 10*3/uL 0.33-0.92 = 742-7) EOS x10^3 (test code = 0.17 10*3/uL 0.03-0.39 711-2) BASO x10^3 (test code 0.07 10*3/uL 0.01-0.07 = 704-7) Lab Interpretation Abnormal (test code = 31487-0) [facility] WITH [id number] 23:32:31 Test Item Value Reference Range Interpretation [...] RDW-SD (test code = 41.9 fL 39-49.9 41593-5) RDW-CV (test code = 15.9 % 12-15.5 H 788-0) PLT (test code = See_Comment [Automated 777-3) message] The sy stem which generated this result transmitted reference range : 166 - 358 10*3/ ?L. The reference r neli was not used to interpret this result as normal/abnormal . MPV (test code = 11.0 fL 9.5-12.9 54373-1) NRBC/100 WBC (test See_Comment [Automat ed code = 9296761221) message] The system which generated this result transmitted reference range : 0.0 - 10.0 /100 WBCs. The refer ence range was not u sed to interpret th is result as normal/abnormal . NRBC x10^3 (test code See_Comment [Auto mated = 4128769692) message] The s ystem which generated this result transmitted reference range : 10*3/?L. The reference range was not used to interpret this result as normal/abnormal . GRAN MAT (NEUT) % 66.4 % (test code = 770-8) IMM GRAN % (test code 0.30 % = 3597784573) LYMPH % (test code = 24.5 % 736-9) MONO % (test code = 6.7 % 5905-5) EOS % (test code = 1.5 % 713-8) BASO % (test code = 0.6 % 706-2) GRAN MAT x10^3(ANC) 7.67 10*3/uL 1.88-7.09 H (test code = 3056879169) IMM GRAN x10^3 (test 0.04 10*3/uL 0-0.06 code = 6541020156) LYMPH x10^3 (test code 2.83 10*3/uL 1.32-3.29 = 731-0) MONO x10^3 (test code 0.77 10*3/uL 0.33-0.92 = 742-7) EOS x10^3 (test code = 0.17 10*3/uL 0.03-0.39 711-2) BASO x10^3 (test code 0.07 10*3/uL 0.01-0.07 = 704-7) Lab Interpretation Abnormal (test code = 30486-8) [facility] [id number] 19:29:00 Test Item Value Reference Range Interpretation Comments Vitamin B12 Lvl (test code = Vitamin 186 420-2612 B12 Lvl) [facility]WrtctqaUSQCIBXWGK1080-44-17 19:29:00 Test Item Value Reference Range Interpretation Comments Sed Rate (test code = Sed Rate) [facility] [id number] 19:29:00 Test Item Value Reference Range Interpretation Comments Vitamin B12 Lvl (test code = Vitamin 252 757-8963 B12 Lvl) [facility] HospitalAkrdesfIIWZTJOYDG6782-34-47 19:29:00 Test Item Value Reference Range Interpretation Comments Sed Rate (test code = Sed Rate) [facility] [id number] 19:29:00 Test Item Value Reference Range Interpretation Comments Vitamin B12 Lvl (test code = Vitamin 273 645-2788 B12 Lvl) [facility] HospitalDcsdhwtBFDLJVDYXG6785-98-66 19:29:00 Test Item Value Reference Range Interpretation Comments Sed Rate (test code = Sed Rate) 29 [facility]2020-10-30 19:29:00 Test Item Value Reference Range Interpretation Comments Vitamin B12 Lvl (test code = Vitamin 574 635-1347 B12 Lvl) [facility] HospitalSswqzpwSEJWPNSBKR6639-90-33 19:29:00 Test Item Value Reference Range Interpretation Comments Sed Rate (test code = Sed Rate) 29 [facility]2020-10-30 19:29:00 Test Item Value Reference Range Interpretation Comments Vitamin B12 Lvl (test code = Vitamin 636 991-4144 B12 Lvl) [facility] HospitalJmpyaqnNXEPPNZWBW8825-08-74 19:29:00 Test Item Value Reference Range Interpretation Comments Sed Rate (test code = Sed Rate) 29 [facility]2020-10-30 19:29:00 Test Item Value Reference Range Interpretation Comments Vitamin B12 Lvl (test code = Vitamin 062 304-5858 B12 Lvl) [facility] HospitalMwgggkqKURQBFSNCL4996-33-38 19:29:00 Test Item Value Reference Range Interpretation Comments Sed Rate (test code = Sed Rate) 29 [facility]2020-10-30 19:29:00 Test Item Value Reference Range Interpretation Comments Vitamin B12 Lvl (test code = Vitamin 109 688-4691 B12 Lvl) [facility] HospitalYrxmarjUQYNEHFYPZ4278-00-02 19:29:00 Test Item Value Reference Range Interpretation Comments Sed Rate (test code = Sed Rate) 29 [facility]2020-10-30 19:29:00 Test Item Value Reference Range Interpretation Comments Vitamin B12 Lvl (test code = Vitamin 359 160-2623 B12 Lvl) [facility] HospitalPbmiunlAHXJGJVDFI5175-95-36 19:29:00 Test Item Value Reference Range Interpretation Comments Sed Rate (test code = Sed Rate) 29 [facility]2020-10-30 19:29:00 Test Item Value Reference Range Interpretation Comments Vitamin B12 Lvl (test code = Vitamin 516 208-4115 B12 Lvl) [facility] HospitalKrlywbuHFENIXFQHI4081-74-00 19:29:00 Test Item Value Reference Range Interpretation Comments Sed Rate (test code = Sed Rate) 29 [facility]2020-10-30 19:29:00 Test Item Value Reference Range Interpretation Comments Vitamin B12 Lvl (test code = Vitamin 866 217-9509 B12 Lvl) [facility] HospitalHtnjjwgDTSDGDDEDZ8019-94-91 19:29:00 Test Item Value Reference Range Interpretation Comments Sed Rate (test code = Sed Rate) 29 [facility]2020-10-30 19:29:00 Test Item Value Reference Range Interpretation Comments Vitamin B12 Lvl (test code = Vitamin 228 836-1830 B12 Lvl) [facility] HospitalXaztiwyJGUHYXDCQT0680-53-52 19:29:00 Test Item Value Reference Range Interpretation Comments Sed Rate (test code = Sed Rate) 29 [facility]2020-10-30 19:29:00 Test Item Value Reference Range Interpretation Comments Vitamin B12 Lvl (test code = Vitamin 303 947-9312 B12 Lvl) [facility] HospitalPgatdekRZLKZUSWZA7936-00-09 19:29:00 Test Item Value Reference Range Interpretation Comments Sed Rate (test code = Sed Rate) 29 [facility]2020-10-30 19:29:00 Test Item Value Reference Range Interpretation Comments Vitamin B12 Lvl (test code = Vitamin 273 905-9843 B12 Lvl) [facility] HospitalUtfqwwbILWWJUNYGX0970-16-51 19:29:00 Test Item Value Reference Range Interpretation Comments Sed Rate (test code = Sed Rate) 29 [facility]2020-10-30 19:29:00 Test Item Value Reference Range Interpretation Comments Vitamin B12 Lvl (test code = Vitamin 757 702-8495 B12 Lvl) [facility] HospitalEgjosokFAVGCXVQDU9763-46-33 19:29:00 Test Item Value Reference Range Interpretation Comments Sed Rate (test code = Sed Rate) 29 [facility]2020-10-30 19:29:00 Test Item Value Reference Range Interpretation Comments Vitamin B12 Lvl (test code = Vitamin 221 613-8030 B12 Lvl) [facility] HospitalEmkzqqzPFRBZCGYVV1269-40-48 19:29:00 Test Item Value Reference Range Interpretation Comments Sed Rate (test code = Sed Rate) 29 [facility] METABOLIC [id number] 07:50:00 Test Item Value Reference Range Interpretation [...] RATE (test code = GFR) mL/mi n/1.73 e9Emtgxnnlj Range:Healthy Adults >90 mL/min/1.73 m2 For Chronic Kidney Disease: Stage II Mild Decrease i n GFR 60-90 Stage III Moderate Decrea se in GFR 30-59 St age IV Severe Decre ase in GFR 15-29 St age V Kidney Failur e <15 CREATININE (test code 0.62 mg/dL 0.55-1.30 N = CREAT) CALCIUM (test code = 8.7 mg/dL 8.2-10.1 N CA) HGB [id number] 05:56:00 Test Item Value Reference Range Interpretation Comments HEMOGLOBIN (test code = HGB) 10.6 g/dL 12-16 L HEMATOCRIT (test code = HCT) 33.8 % 37-47 L - XR KNEE 1 OR 2 V [id number] 11:06:00 Patient Name: KENTRELL HOPSON Unit No: [id number] EXAMS: CPT CODE: [id number] XR KNEE 1 OR 2 V [id number] LEFT KNEE 2 VIEWS PORTABLE COMMENT: 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 at 1106 Reported and signed by: Dawit Vincent MD CC: Hai Gaines MD Technologist: SHUKRI VALLE (RT.R) Transcribed D/ (1106) t.IRENER.JCL [facility] Orthopedic NAME: KENTRELL HOPSON [address] [facility] PHYS: Hai An MD : 1970 AGE: 47 SEX: F [place], [place] [address] LOC: Y.311 A PHONE #: [phone] EXAM DATE: 10/24/2018 [place]US: [place] [facility] [place] #: [phone] RAD #: D/C DT PAGE 1 Signed Report Patient Name: KENTRELL HOPSON Unit No: [id number] EXAMS: CPT CODE: [id number] XR KNEE 1 OR 2 [place] [address] (Continued) Orig Print D/T: S: 10/24/2018 (1110) [facility] Orthopedic NAME: KENTRELL HOPSON [address] [facility] PHYS: Hai An MD : 1970 AGE: 47 SEX: F [place], [place] [address] LOC: Y.311 A PHONE #: [phone] EXAM DATE: 10/24/2018 STATUS: REG SDC FAX #: [phone] RAD #: D/C DT PAGE 2 Signed ReportBASIC METABOLIC [id number] 17:12:00 Test Item Value Reference Range Interpretation [...] RATE (test code = GFR) mL/mi n/1.73 p3Brhhrkmmb Range:Healthy Adults >90 mL/min/1.73 m2 For Chronic Kidney Disease: Stage II Mild Decrease i n GFR 60-90 Stage III Moderate Decrea se in GFR 30-59 St age IV Severe Decre ase in GFR 15-29 St age V Kidney Failur e <15 CREATININE (test code 0.52 mg/dL 0.55-1.30 L = CREAT) CALCIUM (test code = 9.8 mg/dL 8.2-10.1 N CA) CBC W/AUTO [id number] 16:46:00 Test Item Value Reference Range Interpretation [...] = NRBC) Notes Date/Time Note Provider Source 2023-03-07 [id number] [facility] 11:46:00-00:[address] [place] [id number] PATIENT NAME: KENTRELL HOPSON ADMIT DATE: 02/10 02/01 ACCOUNT NO: [id number] ROOM NO: [id number] AGE: 52 REPORT TYPE: DISCHARGE SUMMARY SEX: F ADMITTING PHYSICIAN:Steven David MD ATTENDING PHYSICIAN:Steven David MD ADMISSION DATE: 02/24/2023 10:29:00 DISCHARGE DATE: 02/25/2023 12:19:00 ADMITTING DIAGNOSES: 1. Post-laminectomy syndrome - cervical. 2. Herniated cervical disk with radiculopathy. 3. Cervical spondylosis with myelopathy. DISCHARGE DIAGNOSES: 1. Post-laminectomy syndrome - cervical. 2. Herniated cervical disk with radiculopathy. 3. Cervical spondylosis with myelopathy. MAJOR PROCEDURE DURING THIS HOSPITALIZATION: Ant erior cervical diskectomy and fusion at the C4-C5 segment with exploration of fusion at the C5-C6 level. This was utilizing an Alphatec Trestle Luxe plate. HOSPITAL COURSE: The patient was admitted and af ter routine preoperative evaluation, underwent the above-described proced ure. Postoperatively, she did quite well. She had com plete resolution of her preoperative complaints. She was taking p.o. She was walking the halls. She is to be discharged home in satisfactory con dition. DISCHARGE DIET: As tolerated. DISCHARGE ACTIVITY: I outlined with her preopera tively. She will not drive while taking narcotics. She will keep her incisi on dry for 3 days, at which time she can shower, but not get into bathtub, s wimming pool, or hot tub. She will refrain from uncontrolled activity for a mi nimum of 6 months. She will call our office to arrange for followup in 14-16 days. She is instructed to restart her Plavix on the day of discharge and to restart her aspirin the day after her discharge. Dictated By: Steven David MD Date Dictated: 03/07/2023 11:46:38 Date Transcribed: 03/07/2023 12:36:00 GINNA/ARSH PATIENT NAME: CASEYKENTRELL LEON [id number] Receipt ID: [id number] Authenticated by Steven David MD On 2022 07:47:36 AM at 0747 PATIENT NAME: KENTRELL HOPSON ACCOUNT #: [id number] 2023-02-25 [id number] [facility] 06:17:00-00:[address] [place] [id number] PATIENT NAME: KENTRELL HOPSON ADMIT DATE: 02/10 02/01 ACCOUNT NO: [id number] ROOM NO: G.599 AGE: 52 REPORT TYPE: PROGRESS NOTE SEX: F ADMITTING PHYSICIAN:Steven David MD ATTENDING PHYSICIAN:Steven David MD DATE: 02/25/2023 I met with the patient in her hospital room. The patient is status post ACDF, POD #1. The patient reports to me "I have no more pain, first I have been painfree in a long time." The patient told me that sin ce she woke up from surgery, she noticed there is no more pain in her right arm. She also states that there is no numbness, there is no tingling or any weakness. The patient states she state s she is a little bit sore in her neck, but this is very tolerable. The patient has been walking in the fuentes since yesterday. The patient denies any chest pain, any shortness of breath, or any abdo meaghan complaints. There is no bowel or bladder difficulties. PHYSICAL EXAMINATION: GENERAL: The patient is awake and alert, oriente d x3, not in any acute distress. NECK: Supple with good range of motion in all di rections. NEUROLOGIC: Muscle strength is 5/5 in the upper and lower extremities. Light touch is intact in all dermatomes. SKIN: Her incision is clean, is dry, is intact, remove her bandage. LUNGS: Clear to auscultation bilaterally. CARDIOVASCULAR: Regular rate and rhythm, pulses are 2+ in the upper and lower extremities. ABDOMEN: Benign. LATEST VITAL SIGNS: Temperature 98.1, pulse 76, respirations 16, and blood pressure 119/69. ASSESSMENT AND PLAN: The patient is stat us post ACDF postoperative day #1. The patient is doing a remarkable recovery from her extensive neck surgery. We discussed again her Plavix and aspirin, I told h er she can restart her Plavix today, and her aspirin tomorrow according to her enroller. The patient understood this and agreed to follow this direct ion. The patient is asking to be discharged home this morning, this is reasona ble. I have written orders to be discharged home after her breakfast, if she c ontinues to be afebrile and vital signs are stable. The patient knows to fol low up with us in 2 weeks or sooner if any complications. PATIENT NAME: KENTRELL HOPSON [id number] Dictated By: MAREK Marrero for Steven David MD Date Dictated: 02/25/2023 06:17:05 Date Transcribed: 02/25/2023 07:59:09 GMM/SVR/HEM/SEAN Receipt ID: [id number] Authenticated by MAREK Lei On 07:50:18 AM Authenticated by Steven David MD On 2022 07:33:25 AM at 0733 Electronically Signed by MAREK Lei on 0 02/26/23 at 0750 PATIENT NAME: KENTRELL HOPSON [id number] 2023-02-24 [id number] [facility] 10:23:00-00:[address] [place] [address] PATIENT NAME: KENTRELL HOPSON ADMIT DATE: 02/10 02/01 ACCOUNT NO: [id number] ROOM NO: G.599 AGE: 52 REPORT TYPE: OPERATIVE REPORT SEX: F ADMITTING PHYSICIAN:Steven David MD ATTENDING PHYSICIAN:Steven David MD OPERATION DATE: 02/24/2023 PREOPERATIVE DIAGNOSES: 1. Post-laminectomy syndrome -- cervical. 2. Herniated cervical disk with radiculopathy. 3. Cervical spondylosis with myelopathy. POSTOPERATIVE DIAGNOSES: 1. Post-laminectomy syndrome -- cervical. 2. Herniated cervical disk with radiculopathy. 3. Cervical spondylosis with myelopathy. PROCEDURES: 1. Decompressive anterior cervical diskectomy wi th arthrodesis, C4-C5. 2. Application of intervertebral spacer, C4-C5. 3. Needle localization. 4. Microscopic dissection. 5. Locally harvested autograft. 6. Exploration of fusion, C5-C6. 7. Anterior plate -- Alphatec Trestle Luxe. SURGEON: Steven David MD HAND ENGRAVER: Jimmy Nuñez PA-C ESTIMATED BLOOD LOSS: Less than 20 mL FLUIDS: Per anesthesia staff. INDICATIONS FOR OPERATION: Please see my dictate d history and physical #[id number]. PROCEDURE IN DETAIL: The patient was identified in the preoperative holding area, where thigh high SIN hose and air boots were placed. IV antibiotics were given. Evoked potential and EMG monitoring was b egun and continued throughout the operation with no reported changes. The lorri ent was taken to major operating suite. General anesthesia was induced without complication. An arterial line was then placed. The patient was p laced supine. Three towels were placed intrascapularly. The arms were tucke d at the sides and the median and ulnar nerves were well padded. The head was positioned on a doughnut and extended approximately [address] d across the forehead. The shoulders were taped to maximize fluoroscopic vi sualization. Needle localization was performed. Despite our efforts, we could barely see to the PATIENT NAME: KENTRELL HOPSON ACCOUNT #: [id number] bottom of the C3 vertebral body. The right neck was prepped and draped in the usual sterile fashion. A timeout was performed. The imaging was availab le throughout the procedure. The telecom assistant was present throughout the procedu re. He is medically necessary for retraction and exposure of vital neurologica l structures as well as vital structures of the neck. We began by opening the previous incision. The p latysma was divided transversely. Subplatysmal dissection was so d out. There was extensive scarring. We developed the plane along the anter ior border of the right sternocleidomastoid. The carotid sheath was swep t laterally. The trachea and esophagus were swept medially. As noted dense sc ar was encountered throughout the dissection. This allowed exposure over the r ather prominent anterior osteophytes at the C4-C5 segment and ultimately allowed us to identify the plate. We exposed over the plate. I took down th e longus colli muscles along the plate to the mid C4 vertebral body. Care was taken all times to assure no damage occurred to the adjac ent disk spaces. I removed the anterior osteophytes with a Leksell rongeur. We then removed the plate uneventfully. The hole s were waxed with bone wax. I explored over the fusion. This was noted to be q uite solid. The TrimLine retractor syste m was then placed in such a way that the blades were beneath the longus colli muscles and not directl y on the neck structures. Kinston posts were placed in the body of C4 and the body of C5 using predrilled captain/airline pilot holes. The annulus was incised. Three clic ks of distraction were applied. The operating microscope was brought in the surgical field. I began under microscopic control removing the l oose disk material with a combination of curettes and pituitary rongeurs. Posterior osteophytes and uncovertebral joints were drilled bilate rally. I entered the epidural space in the midline with a micro nerve hook. There had b een some suggestion of OPLL. This was not noted. The ligament, howeve r, was quite thick consistent with the previous surgery at the C5-C 6 segment. I continued my dissection to the left of midline and completely decompressed out to the l evel of the foramen. I similarly did this on the right hand side. On th e right hand side, there was noted to be massive disk her niation filling the right foramen. Some of the most prominent portion of the disk fragments were car tilaginous endplate. Following these maneuvers, I was able to easily pass a nerve hook out bilateral foramina as well as behind the adjacent vertebra l bodies. The findings were that of marked spondyl osis, thickened posterior longitudinal ligament, and has noted soft disk material filli ng the right foramen. Of note, there was no spinal fluid seen at any t indio during the operation and there were no dural lacerations. The wound was irrigated copiously with antibioti c irrigation. We then turned our attention to arthrodesis . The endplates were decorticated with a high speed drill under microscopic control. Posterior ledge s were created. Local PATIENT NAME: KENTRELL HOPSON [id number] autograft was harvested and used to fill the spa cer. We then advanced an Alphatec Novel PEEK spacer under 3 clicks of dis traction. There was ample epidural spaces documented with a nerve hook. I released the distraction. I was unable to move the spacer with the Blair in strument. The Kinston posts were removed and the sites waxe d with bone wax. We then turned our attention to anterior plating . The soft tissue was removed with the Bovie bat lathe operator and the anteri or osteophytes with a high-speed drill and a microscopic control. An Alphatec Trestle Luxe plate was then placed uneventfully. We wanted 3-point fixation and were able to achieve this, I first placed the screws at C6. These were 12 mm variable angle self-tapping r escue screws. I then drilled the holes at C4. I placed 12 mm variable angle self-tappin g regular screws. I then drilled at the C5 level as the alignment on the screw holes was in perfect. I then advanced a 12 mm variab le angle self-tapping rescue screws. Each screw was noted to have excellent purc hase. Each screw was nicely countersunk relative to the locking mechanism. I ensured that th e line on the locking mechanism was in line with the line on the plate at each site. The deep retractors were removed. The vital stru ctures of the neck including the trachea, esophagus and c arotid sheath were examined and found to be free of injury. The wound was irrigated copiously in antibiotic irrigation. Meticulous hemostasis was obtained with the bipolar. The wound was again irrigated copiously with antibiotic irrigation. Meticulous hemostasis was confirmed. The wound was then suzanna sed in layers. The platysma and subcutaneous were reapproximated with 3-0 Vi cryl in a simple inverted fashion. The skin was closed with Steri-Strips. The wounds were dressed sterilely. The patient was awaiting extubation. Sponge and needle counts were reported a s correct at the end of the operation. The challenge of the case was applied. The patie nt's body habitus as well as the extensive scarring and approach. Dictated By: Steven David MD Date Dictated: 02/24/2023 10:23:18 Date Transcribed: 02/24/2023 10:44:32 GINNA/BUNNY Receipt ID: [id number] Authenticated by Steven David MD On 2022 07:33:23 AM PATIENT NAME: KENTRELL HOPSON [id number] at 0733 PATIENT NAME: CASEYKENTRELL LEON [id number] 2023-02-24 [id number] [facility] 08:04:00-00:[address] [place] [id number] PATIENT NAME: KENTRELL HOPSON ADMIT DATE: 02/10 02/01 ACCOUNT NO: [id number] ROOM NO: G.599 AGE: 52 REPORT TYPE: HISTORY AND PHYSICAL SEX: F ADMITTING PHYSICIAN:Steven David MD ATTENDING PHYSICIAN:Steven David MD ADMISSION DATE: 02/24/2023 05:37:00 HISTORY AND PHYSICAL ADMITTING DIAGNOSES: 1. Post-laminectomy syndrome -- cervical. 2. Herniated cervical disk with radiculopathy. 3. Cervical spondylosis with myelopathy. HISTORY OF PRESENT ILLNESS: The patient is a sivan y pleasant 52-year-old female who notably I performed an a nterior cervical diskectomy and fusion at the C5-C6 level, from which she did quite well. She now comes with a chief complaint involving h er neck and right upper extremity and now her left upper extremity. She reports the acute onset of her complaints. She describes her neck pain as being acr oss the C5-C6 segment and radiating in the right interscapular region. She has in her right upper e xtremity pain that goes along the trapezius, the arm and into the upper forearm. She reports numbness and tingling in the same distribution. She reports substantial right uppe r extremity weakness and "I can't hold it up." She reports that her right upper extremity compl aints are constant, but made worse with neck rotation. She holds her right ar m over her head for relief. She reports having progressi ve complaints now involving her left upper extremity in a similar distribution. She reports having increasin g troubles with bladder incontinence since the onset of her complaints. PAST MEDICAL HISTORY: Significant for a prior st roke. She has undergone Neurology clearance for this. She is also listed as having GERD, hoarseness of voice, migraine, morbid obesity, polyp of vocal cord, and rheuma toid arthritis, unspecified. These are noted in her cardiology clinic notes. She did no t report these. She has a history of cardiac stents per the cardio logy note as occurring in 05/2022. She PATIENT NAME: KENTRELL HOPSON [id number] lists this as 05/2021. PAST SURGICAL HISTORY: Significant for the above -described anterior cervical surgery, gastric sleeve, and knee replacements. CURRENT MEDICATIONS: Include metformin, atorvast atin, Protonix, carvedilol, losartan, baclofen and gabapentin. She h as stopped both her Plavix and aspirin in anticipation of surgery. There were s ome issues with Cardiology in terms of clearing her to be off of he r aspirin. The patient returned to the enroller and clarified this. We have subsequently received a note from the enroller acknowledging the nature of the surgery. I have discussed this with the patient and her . I have explained that i t is absolutely correct that being off of her medications subjects her to increased ris k including heart attack or stroke. I explained the only way really to avoid this would be to not undergo her surgery. This conversation occurred today. S he said quite adamantly that this is not an acceptable op tion for her and is asking we proceed. She is aware of these issues. ALLERGIES: SHE HAS NO KNOWN DRUG ALLERGIES. SOCIAL HISTORY: She does smoke. I have discussed the impact of nicotine on fusion surgery as well as on surgical risks. She is trying to quit. She does not drink. 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 FAMILY HISTORY: Noncontributory. REVIEW OF SYSTEMS: Negative for fevers, chills, chest pain, shortness of breath or abnormal bleeding. PHYSICAL EXAMINATION: GENERAL: Overall, she appears in no acute distre ss. HEENT: Her oropharynx is benign. There are no ca rotid bruits. CARDIOVASCULAR: Reveals regular rate and rhythm without murmur. LUNGS: Clear to auscultation. ABDOMEN: Finds abdomen is soft and nontender. No palpable masses. EXTREMITIES: Finds to have 2+ pulses in the uppe r and lower extremity. BREASTS, PELVIC AND RECTAL: Are deferred to her primary care physician. NEUROLOGICAL: I find her to be intact wi th the exception of decreased pinprick over her right deltoid, 3/5 strength in her righ t deltoid and 4/5 strength in her right biceps, 3+ reflexes throughout the upp er and lower extremity and positive bilateral Romero s ign. Both of these are new findings compared to her previous visit. She has decreased range of motio n of her cervical spine by 20 degrees in all directions. DIAGNOSTIC IMAGING: The patient has undergone d iagnostic testing. X-rays of the cervical spine reveal the prior C5-C6 anteri or cervical diskectomy and fusion with allograft. The plate appears midline . There is cervical spondylosis at the C3-C4 and C4-C5 greater than C6-C7 segment. MRI of the cervical spine reveals similar findin gs. There is significant spondylosis with disk osteophyte formation at th e C4-C5 segment. There is central stenosis at this segment as well . There are spondylitic changes at the C3-C4 level with no central stenosis. Th ere is potentially an element of OPLL. If this is indeed present, i t is purely in the midline as you can see tenting of PATIENT NAME: KENTRELL HOPSON [id number] the ligament laterally due to disk osteophyte co mplex. ASSESSMENT AND PLAN: Ms. Hopson presents with a r ight C5 radiculopathy. I have had a long discussion with her regarding her patricia gnosis and treatment options. She says "I can't sleep in the bed anymore. I olivo ve to sleep in a recliner. I am having pain in my other arm." "I am trying to stay employed." I discussed the difficulty of the diagnosis and treatment of pain. She points out how well she did after her previo us surgery. I explained there is no certainty she would olivo ve the same outcome, especially with increased risk of redo surgery. She acknowledged understanding of this and added that she is also older, heavier, and with increased medical condition since that time. I discussed the implication of her prior surgery as well as the other areas of spine abnormalities. I discussed ongoing conservative care as well as surgical options. In terms of surgical options, I discusse d surgery on the front of the neck, the back of the neck and combined. After discussing the advantages and disadvantage s of each approach, Ms. Hopson comes asking for surgical intervention and speci fically anterior cervical diskectomy and fusion at the C4-C5 level. I met with and Mrs. Hopson after they read the anterior cervical diskectomy and fusion sheet. I reviewed the imaging studies and the surgical plan with Mr. Joaquin PA-C. Mr. Nuñez met with the marek cordoba and her . He reviewed the surgical plan. He wiley leliau res in the medical record of the planned procedure. He used a model to demonstrate surgery. He revi ewed the postoperative instructions. He reviewed the surgical risks. I then discussed the conversation with Mr. Suresh tompkins PA-C. I then personally again met with Mr. and Mrs. Olivo [facility]. I reviewed the surgical plan as drawn. I explained, however, that the ac tual details of surgery would only be known postoperatively. I explain ed it is conceivable that we would not be able to proceed due to our inability to remov e her prior hardware. I discussed the likely use of a synthetic spacer , but the possible use of cadaver bone and the risks a ssociated with this including moses a disease. She does not already have crawford ch as AIDS or hepatitis. We discussed the impact of nicotine on fusion rates. I gave the role of Gerardo donovan PA-C as an telecom assistant at the time of surgery as well as his potential involv ement in the postoperative hospital and office care. I demonstrated the incision. I reviewed the post operative instructions. I emphasized what to return to clinic for, go to the emergency room for, and what to dial 911 for in the postoperative period. PATIENT NAME: KENTRELL HOPSON [id number] I explained that I could not outline each and ev kimberly risk of a surgery of this type. I did, however, review the overall medical risks of heart attack, stroke, coma and even . I expla ined the possibility of blood clots that could form in the legs and travel to the lungs. I explained this could be deadly in the event they should develop. I explained while statistically speaking these would be felt to be small risks that they are actually very definite and very real risks and do occur even to otherwise healthy peo ple. We discussed her underlying medical condition. We discuss ed just because we have clearance does not mean she will not have a major event such as heart attack or stroke. At the time we had that conversation, we were also disc ussing the issues surrounding aspirin that has subsequently been resolved as n oted above. I explained the possibility of infection includi ng the possibility of this leading to meningitis that could be life threate norris. I explained the possibility of a Alonzo's syndrome and the poten tial implication of this. I explained the possibility of postoperative bleeding requiring a return to the operating room. I explained this could potential ly be life threatening. This is also part of the discussion in regards to her aspirin and Plavix. I did discuss with her the need for her to restart her Plavix and aspirin no later than 2 days postoperatively unless otherwise ins tructed by us. I explained the possibility of swallowing or voi ce problems that could be temporary or permanent. I explained this risk is increased with redo surgery. I explained that it is extreme that this could require a breathing tube and/or feeding tube that could be temporary or permanen t. I explained the possible inv olvement of the blood vessels of the neck including the carotid arteries and/or vertebral arteries and the potential implication of this. I explained the possibility of developing new numbness, tingling or weakness or loss of bowel or bladder or sexual function that could be temporary or permanent. I specifically po inted out the "touchy" nature of the C5 nerve root. She points out that she already has this. I explained the possibility of spinal cord injury that could lead to loss of use of her arms and legs that could be temporary or permanent. I explained the possibility of spinal fluid leak and the potenti al treatment needed for this. I explained the possibility of failure of fusion and the need for further surgery. I explained the possibility of screws b reaking or pulling out. This again led to a discussion about nicotine. Lastly, once again, I explai harish there is no guarantee that this operation would relieve her complaints and indeed she could deve lop new or worse complaints. Ms. Hopson stated that she understood the planned procedure and the risks associated with it. She stated she understood th ere is no guarantee of relief of her complaints and she could always develop n ew or worse complaints. She stated I answered her questions fully an d to her satisfaction and is asking me to proceed. At the time of this dictation, I met with the pa tietad and her in the PATIENT NAME: KENTRELL HOPSON [id number] preoperative holding area and confirmed her kang re to proceed with surgery. At the time of this dictatio n, I reviewed the patient's preoperative diagnostic testing including all of her reports as well as her actual MRI and x-ray images. Dictated By: Steven David MD Date Dictated: 02/24/2023 08:04:36 Date Transcribed: 02/24/2023 09:02:26 GINNA/BRYAN Receipt ID: [id number] Authenticated by Steven David MD On 2022 11:46:47 AM at 1146 PATIENT NAME: KENTRELL HOPSON ACCOUNT #: [id number] 2023-02-22 [id number] [facility] 11:32:00-00:[address] [place] [id number] PATIENT NAME: KENTRELL HOPSON ADMIT DATE: ACCOUNT NO: [id number] ROOM NO: AGE: 52 REPORT TYPE: eELECTROCARDIOGRAM REPORT SEX: F ADMITTING PHYSICIAN:Steven David MD ATTENDING PHYSICIAN:Steven David MD Order: [id number] Test Reason : PRE OP Test Date/Time Stamp: TueFeb 22 2023 11:32:10 Blood Pressure : / mmHG Vent. Rate : 072 BPM Atrial Rate : 072 BPM P-R Int : 186 ms QRS Dur : 086 ms QT Int : 374 ms P-R-T Axes : 065 089 058 degree s QTc Int : 409 ms Normal sinus rhythm Normal ECG No previous ECGs available Confirmed by ANNETTE WHITFIELD MD ([id number]) on 02/23/20 4:58:52 PM Referred By: Steven David Confirmed by:FELISA WHITFIELD MD Electronically Signed by Annette Whitfield MD on at 1658 PATIENT NAME: KENTRELL HOPSON [id number] 2023-01-15 PROCEDURE INFORMATION: MH ANDREINA shea 14:00:00-00:00 Exam: MR Cervical Spine Without Contrast Exam date and time: 01/15/2023 2:37 PM Age: 52 years old Clinical indication: Radiculopathy, cervical reg ion; Additional info: /m54.12 radiculopathy, cervical region TECHNIQUE: Imaging protocol: Magnetic resonance imaging of the cervical spine without contrast. COMPARISON: BRAIN WO CONTRAST MRI 06/07/2020 6:56 AM FINDINGS: Bones/joints: There is reversal of the normal ce rvical lordosis epi centered at C4-C5 and anterior cervical fusion at C5-C6 w ithout discitis or osteomyelitis. Spinal cord: There is no myleomalacia or cord ed juve. There is no tonsillar ectopia. The C1/C2 articulation is intact. There is normal flow from both vertebral arteries. C2-C3: No significant disc bulge or herniation. No severe spinal canal stenosis. No significant neural foraminal narrow ing. C3-C4: There is a 2.6 mm broadening of t he posterior longitudinal ligament and a short pedicle configuration of spinal canal wi th minimal to moderate spinal stenosis. There is hypertrophic change of uncove rtebral joints with severe right and moderate left foraminal stenosis. C4-C5: The disc space is a desiccated an d narrowed and there is a 3-4 mm broad base bridging osteophyte/calcification of the po sterior longitudinal ligament with a more focal right distal lateral recess/pr oximal foraminal disc herniation. There is severe right proximal sophia inal stenosis and compromise of the exiting C5 nerve root. There is severe sp inal stenosis. There is an underlying short pedicle configuration o f spinal canal. There is moderate left foraminal stenosis. C5-C6: There is anterior cervical fusion with in terbody screws and metallic fixation plate. There is no central or foraminal stenosis. C6-C7: There is hypertrophic change to left unco vertebral joint with minimal foraminal stenosis. C7-T1: No significant disc bulge or herniation. No severe spinal canal stenosis. No significant neural foraminal narrow ing. Soft tissues: The prevertbral soft tissues are n ormal. Vasculature: Expected flow voids in the vertebra l arteries. IMPRESSION: C3-C4: There is a 2.6 mm broadening of t he posterior longitudinal ligament and a short pedicle configuration of spinal canal wi th minimal to moderate spinal stenosis. There is hypertrophic change of uncove rtebral joints with severe right and moderate left foraminal stenosis. C4-C5: The disc space is a desiccated an d narrowed and there is a 3-4 mm broad base bridging osteophyte/calcification of the po sterior longitudinal ligament with a more focal right distal lateral recess/pr oximal foraminal disc herniation. There is severe right proximal sophia inal stenosis and compromise of the exiting C5 nerve root. There is severe sp inal stenosis. There is an underlying short pedicle configuration o f spinal canal. There is moderate left foraminal stenosis. C5-C6: There is anterior cervical fusion with in terbody screws and metallic fixation plate. There is no central or foraminal stenosis. Denilson Blake MD On 01/17/2023 08:56:17; NIXON [id number] 2023-01-15 PROCEDURE INFORMATION: MADONNA shea 14:00:00-00:00 Exam: MR Cervical Spine Without Contrast Exam date and time: 01/15/2023 2:37 PM Age: 52 years old Clinical indication: Radiculopathy, cervical reg ion; Additional info: /m54.12 radiculopathy, cervical region TECHNIQUE: Imaging protocol: Magnetic resonance imaging of the cervical spine without contrast. COMPARISON: BRAIN WO CONTRAST MRI 06/07/2020 6:56 AM FINDINGS: Bones/joints: There is reversal of the normal ce rvical lordosis epi centered at C4-C5 and anterior cervical fusion at C5-C6 w ithout discitis or osteomyelitis. Spinal cord: There is no myleomalacia or cord ed juve. There is no tonsillar ectopia. The C1/C2 articulation is intact. There is normal flow from both vertebral arteries. C2-C3: No significant disc bulge or herniation. No severe spinal canal stenosis. No significant neural foraminal narrow ing. C3-C4: There is a 2.6 mm broadening of t he posterior longitudinal ligament and a short pedicle configuration of spinal canal wi th minimal to moderate spinal stenosis. There is hypertrophic change of uncove rtebral joints with severe right and moderate left foraminal stenosis. C4-C5: The disc space is a desiccated an d narrowed and there is a 3-4 mm broad base bridging osteophyte/calcification of the po sterior longitudinal ligament with a more focal right distal lateral recess/pr oximal foraminal disc herniation. There is severe right proximal sophia inal stenosis and compromise of the exiting C5 nerve root. There is severe sp inal stenosis. There is an underlying short pedicle configuration o f spinal canal. There is moderate left foraminal stenosis. C5-C6: There is anterior cervical fusion with in terbody screws and metallic fixation plate. There is no central or foraminal stenosis. C6-C7: There is hypertrophic change to left unco vertebral joint with minimal foraminal stenosis. C7-T1: No significant disc bulge or herniation. No severe spinal canal stenosis. No significant neural foraminal narrow ing. Soft tissues: The prevertbral soft tissues are n ormal. Vasculature: Expected flow voids in the vertebra l arteries. IMPRESSION: C3-C4: There is a 2.6 mm broadening of t he posterior longitudinal ligament and a short pedicle configuration of spinal canal wi th minimal to moderate spinal stenosis. There is hypertrophic change of uncove rtebral joints with severe right and moderate left foraminal stenosis. C4-C5: The disc space is a desiccated an d narrowed and there is a 3-4 mm broad base bridging osteophyte/calcification of the po sterior longitudinal ligament with a more focal right distal lateral recess/pr oximal foraminal disc herniation. There is severe right proximal sophia inal stenosis and compromise of the exiting C5 nerve root. There is severe sp inal stenosis. There is an underlying short pedicle configuration o f spinal canal. There is moderate left foraminal stenosis. C5-C6: There is anterior cervical fusion with in terbody screws and metallic fixation plate. There is no central or foraminal stenosis. Denilson Blake MD On 01/17/2023 08:56:17; VR-BB [id number] 2023-01-11 PROCEDURE INFORMATION: ANDREINA shea 16:05:48-00:00 Exam: XR Right Shoulder Exam date and time: 01/11/2023 4:13 PM Age: 52 years old Clinical indication: Pain in right shoul yoana; Additional info: /m25.511 pain in right shoulder TECHNIQUE: Imaging protocol: Radiologic exam of the right s houlder. Views: 2 or more views. AP INT/ EXT ROTATION, SC APULAR Y COMPARISON: CR CHEST 2 VIEWS DX 08/07/2019 5:01 PM FINDINGS: Bones/joints: No definite acute fracture or disl ocation. Soft tissues: Normal. Notes: If there is further concern, follow-up ra diographs or MRI of the shoulder may be performed for complete assessmen t. IMPRESSION: No definite acute fracture or dislocation detec ted. Dallas Sotelo MD On 01/12/2023 11:26:39; [id number] 2023-01-11 PROCEDURE INFORMATION: MADONNA shea 16:05:48-00:00 Exam: XR Right Shoulder Exam date and time: 01/11/2023 4:13 PM Age: 52 years old Clinical indication: Pain in right shoul yoana; Additional info: /m25.511 pain in right shoulder TECHNIQUE: Imaging protocol: Radiologic exam of the right s houlder. Views: 2 or more views. AP INT/ EXT ROTATION, SC APULAR Y COMPARISON: CR CHEST 2 VIEWS DX 08/07/2019 5:01 PM FINDINGS: Bones/joints: No definite acute fracture or disl ocation. Soft tissues: Normal. Notes: If there is further concern, follow-up ra diographs or MRI of the shoulder may be performed for complete assessmen t. IMPRESSION: No definite acute fracture or dislocation detec sinRamy Sotelo MD On 01/12/2023 11:26:39; [id number] 2020-06-07 PROCEDURE INFORMATION: OPID P earland 07:00:00-00:00 Exam: MR Head Without Contrast Exam date and time: 06/07/2020 6:56 AM Age: 49 years old Clinical indication: Migraine with aura, not int ractable, without status migrainosus; Additional info: Migraine with aura /migraine with aura TECHNIQUE: Imaging protocol: MR of the head without contras t. 3D rendering (Not supervised by radiologist): TN P and/or 3D reconstructed images were created by the technologist. COMPARISON: CR SKULL SERIES DX 06/04/2019 4:41 PM FINDINGS: Brain: There is a partial empty sella. There is no cerebellar tonsillar ectopia. There is minimal subcortical and perive ntricular areas of gliosis. There is a focus in the body of the left corpus callosum which measures 6 mm. There is flow in the 4th portions of both verteb ral arteries, dominant left, the basilar artery and intracranial carotid david jose guadalupe. There is no acute cortical infarct, parenchymal hemorrhage or an intra-axial mass. Cerebral ventricles: Normal. No ventriculomegaly . Bones/joints: Unremarkable. Paranasal sinuses: There is mucosal thickening/s mall mucous retention cyst in the base of the bilateral maxillary sinuses. The re is right nasal septal deviation with a small exostosis between the mid dle and inferior nasal turbinate. Mastoid air cells: Normal as visualized. No mast oid effusion. Orbits: Unremarkable. Soft tissues: Unremarkable. IMPRESSION: There is minimal periventricular and subcortical areas of gliosis, finding frequently described in patients with a chronic migrainous headache history. There is no acute cortical infarct, parenchymal hemorrhage or an intra-axial mass. Mucosal thickening and small 1 cm mucous retention cyst is seen in the base of the bilateral maxillary sinuses. Denilson Blake MD On 06/07/2020 13:10:42; VR-BB [id number] 2020-06-07 PROCEDURE INFORMATION: MADONNA HDZ Miguel shabbir 07:00:00-00:00 Exam: MR Head Without Contrast Exam date and time: 06/07/2020 6:56 AM Age: 49 years old Clinical indication: Migraine with aura, not int ractable, without status migrainosus; Additional info: Migraine with aura /migraine with aura TECHNIQUE: Imaging protocol: MR of the head without contras t. 3D rendering (Not supervised by radiologist): TN P and/or 3D reconstructed images were created by the technologist. COMPARISON: CR SKULL SERIES DX 06/04/2019 4:41 PM FINDINGS: Brain: There is a partial empty sella. There is no cerebellar tonsillar ectopia. There is minimal subcortical and perive ntricular areas of gliosis. There is a focus in the body of the left corpus callosum which measures 6 mm. There is flow in the 4th portions of both verteb ral arteries, dominant left, the basilar artery and intracranial carotid david jose guadalupe. There is no acute cortical infarct, parenchymal hemorrhage or an intra-axial mass. Cerebral ventricles: Normal. No ventriculomegaly . Bones/joints: Unremarkable. Paranasal sinuses: There is mucosal thickening/s mall mucous retention cyst in the base of the bilateral maxillary sinuses. The re is right nasal septal deviation with a small exostosis between the mid dle and inferior nasal turbinate. Mastoid air cells: Normal as visualized. No mast oid effusion. Orbits: Unremarkable. Soft tissues: Unremarkable. IMPRESSION: There is minimal periventricular and subcortical areas of gliosis, finding frequently described in patients with a chronic migrainous headache history. There is no acute cortical infarct, parenchymal hemorrhage or an intra-axial mass. Mucosal thickening and small 1 cm mucous retention cyst is seen in the base of the bilateral maxillary sinuses. Denilson Blake MD On 06/07/2020 13:10:42; VR-BB [id number] 2019-08-07 PROCEDURE INFORMATION: MADONNA HDZ Jimmie zia 16:09:00-00:00 Exam: XR Chest, 2 Views Exam date [...] findings Liam Dee MD On 08/07/2019 17:43:07; [id number] 2019-08-07 PROCEDURE INFORMATION: MADONNA lizarraga 16:09:00-00:00 Exam: XR Chest, 2 Views Exam date [...] findings Liam Dee MD On 08/07/2019 17:43:07; [id number] 2019-06-04 SKULL, 4 VIEWS MADONNA Kline ood 16:29:00-00:00 HISTORY: ; - R51 forehead pain; COMPARISON: None available. FINDINGS: Frontal, lateral, and oblique views submitted. No fracture or aggressive os seous lesion or erosion. Visualized paranasal sinuses are clear. Orbits are intact. IMPRESSION: Negative. SL: [id number] 2019-06-04 SKULL, 4 VIEWS MADONNA Kline ood 16:29:00-00:00 HISTORY: ; - R51 forehead pain; COMPARISON: None available. FINDINGS: Frontal, lateral, and oblique views submitted. No fracture or aggressive os seous lesion or erosion. Visualized paranasal sinuses are clear. Orbits are intact. IMPRESSION: Negative. SL: [id number] 2018-10-25 [facility] 10:56:00-00:00 [facility] Clinical Note REPORT#:[id number] REPORT STATUS: Signed DATE:10/25/18 TIME: 1055 PATIENT: KENTRELL HOPSON UNIT #: [id number] [facility] AGE: 47 SEX: F ATTEND: Juancarlos Gaines MD ADM AUTHOR: Dallas Mason MD * ALL edits or amendments must be made on the el ectronic/computer document * Clinical Note Note: [facility] Dallas mendoza M.D. (cell text [phone]) Assessment/Plan 1.) Anemia of acute blood loss- .Hgb 10.6, asymp tomatic. 2.) S/p Left TKA- .acute pain control. Anticoagu lation as per Dr. Gaines. 3.) Hypertension- .follow BP and hold Rxs [...] 113/75 87.3 96 10/25 0234 95 Nasal 3.537112 32 cannula 10/24 2352 Nasal 3.231440 cannula 10/24 2204 99.1 109 16 114/66 82.1 94 10/24 2107 94 Nasal 3.868194 32 cannula 10/24 1945 97.3 111 16 100/66 77.2 96 10/24 1607 98.2 106 14 102/55 70.3 96 Room air 10/24 1137 98 Nasal 3.332267 32 cannula 10/24 1122 97.2 99 14 106/69 81.3 99 Nasal cannula Gen: Alert, oriented, in mild discomfort Neck: No Masses, No Thyromegaly- CV: Regular Rate Rhythm / Edema- no significant Resp: Clear To Ascultation / Normal Respiratory Effort ABD: NonTender / NonDistended MS/Skin: No Cyanosis / No no dules / +Ankle DF/PF / nl capillary refill of toes. Other: Labs/X-ray: Laboratory Tests: 10/25 0415 Chemistry Sodium (136 - 145 mmol/L) 138 [...] 33.8 L Dallas Varghese M.D. at 1130 RPT #:[id number] END OF REPORT 2018-10-25 [id number] [facility] 07:55:00-00:00 [address] [address] PATIENT NAME: KENTRELL HOPSON ADMIT DATE: 10/13 10/31 ACCOUNT NO: [id number] ROOM NO: AGE: 47 REPORT TYPE: DISCHARGE SUMMARY REPORT SEX: F ADMITTING PHYSICIAN: ATTENDING PHYSICIAN:Hai Gaines MD ADMISSION DATE: 10/24/2018 DISCHARGE DATE: 10/25/2018 ADMITTING DIAGNOSIS: Left knee osteoarthritis. PRIMARY DISCHARGE DIAGNOSIS: Left knee osteoarth ritis, M17.12. OPERATIVE PROCEDURES PERFORMED: On 10/24/2018, l eft total knee arthroplasty, 422[address]. HISTORY OF PRESENT ILLNESS: Ms. Hopson is [...] medi cation reconciliation sheet. Dictated By: Hai Gaines MD WT: DS:DWAINE/RADHA/WATSON Conf#: [id number]/DID#: [id number] Authenticated by Hai Gaines MD On 9 06:46:33 AM PATIENT NAME: KENTRELL HOPSON [id number] Electronically Signed by Hai Gaines MD on 0 10/26/18 at 0646 PATIENT NAME: KENTRELL HOPSON [id number] 2018-10-24 [facility] 22:10:00-00:00 [facility] Clinical Note REPORT#:[id number] REPORT STATUS: Signed DATE:10/24/18 TIME: 2209 PATIENT: KENTRELL HOPSON UNIT #: [id number] [facility] AGE: 47 SEX: F ATTEND: Juancarlos Gianes MD ADM AUTHOR: Dallas Mason MD * ALL edits or amendments must be made on the el ectronic/computer document * Clinical Note Note: [facility] Dallas mendoza MD (cell text [phone]) Internal Medicine Consult at request of : Dr Zan Gaines Chief Complaint: Left knee pain HPI: .47 yo F now s/p Left total knee arthroplas ty (TKA) by Dr. Gaines. Ms. Hopson relates years of progr essive [...] ppd x 25. FHx: .No significant hx of DVT/PE. Alcohol: none Drugs: none Lives: with [...] low FiO2 Mean Ox Delivery Rate 10/24 2203 99.1 109 16 114/66 82.1 94 10/24 2107 94 Nasal 3.753219 32 cannula 10/24 1945 97.3 111 16 100/66 77.2 96 10/24 1607 98.2 106 14 102/55 70.3 96 Room air 10/24 1137 98 Nasal 3.479670 32 cannula 10/24 1122 97.2 99 14 106/69 81.3 99 Nasal cannula 10/24 1029 Nasal 3.164701 cannula 10/24 1001 96.6 94 16 129/65 89 99 Nasal cannula 10/24 0955 Nasal 3.953894 cannula 10/24 0943 89 12 140/60 100 Nasal 3.241722 cannula 10/24 0928 92 14 149/58 100 Nasal 3.726160 cannula 10/24 0924 Simple 8.429865 mask 10/24 0913 98.9 90 19 104/57 97 Simple 8.237377 mask 10/24 0709 97.3 101 20 152/88 [...] Plt 389, CHEM: Na 139, K 5.1, Cr 0.52(eGFR 126.4%), . (medium to high risk of complications or morbidi ty) (major surgery) (IV sedative, meds) Assessment Plan 1.) Anemia of Acute Blood Loss- .will recheck . 2.) S/p Left TKA- .acute pain control. Anticoagu lation as per Dr. Gaines. 3.) Hypertension- .follow BP and hold Rxs if SBP <120. 4.) GERD- .continue on Rx. Dallas Varghese M.D. Thanks! at 0625 RPT #:[id number] END OF REPORT 2018-10-24 [facility] 09:09:00-00:00 [facility] Brief Op Note REPORT#:[id number] REPORT STATUS: Signed DATE:10/24/18 TIME: 908 PATIENT: KENTRELL HOPSON UNIT #: [id number] ROOM/BED: : 70 AGE: 47 SEX: F ATTEND: Gabe Gaines MD ADM AUTHOR: Hai Gaines MD * ALL edits or amendments must be made on the el ectronic/computer document * Op/Inv Proc Note - Brief Pre-procedure diagnosis: LEFT KNEE OA Post-procedure diagnosis: same as pre procedure dx Procedures performed: LEFT TOTAL KNEE Primary Surgeon: DR GAINES Communications Director(s): OSCAR NAVARRETE Findings: Portions of this note were t ranscribed by a Scribe. I, personally performed the history, physical exam and medical decis ion making; and confirmed the accuracy of the information in the transcribed note. Complications: none Estimated blood loss in ml's: 50 ML Specimens removed/altered: none Portions of this section were scribed by Oscar Navarrete on 10/24/18 at 0909 Electronically Signed by Hai Gaines MD on at 0941 [facility] #:[id number] END OF REPORT 2018-10-24 [id number] [facility] 09:05:00-00:00 [address] [address] PATIENT NAME: KENTRELL HOPSON ADMIT DATE: 10/13 10/31 ACCOUNT NO: [id number] ROOM NO: Y.311 AGE: 47 REPORT TYPE: OPERATIVE REPORT SEX: F ADMITTING PHYSICIAN: ATTENDING PHYSICIAN:Hai Gaines MD OPERATION DATE: 10/24/2018 PREOPERATIVE DIAGNOSIS: Left knee osteoarthritis . POSTOPERATIVE DIAGNOSIS: Left knee osteoarthriti s, M17.12. PROCEDURE PERFORMED: [place]plast [place], 33191. IMPLANTS UTILIZED: DePuy Att une total knee system, size-3 narrow left posterior stabilized femur, size-3 mob ile-bearing tibial tray, 3 x 10 mm rotating platform posterior stabilized tibial insert, and 35-mm ov al patella. All components cemented. ANESTHESIA: General. TOURNIQUET TIME: 27 minutes. ESTIMATED BLOOD LOSS: Less than 40 mL. SURGEON: Hai Gaines MD MANAGER UNIX: LEANNA Torres CLINICAL INDICATIONS: Ms. Hopson is a 47-year-old female from [place], [place], severe and progressive pain in her left knee. Her pain has been occurring with daily activities. The pain has been refractory t o extensive nonoperative treatment. Due to her progressive pain and lack of response to nonoperative intervention, she is admitted for left total kne e arthroplasty. PROCEDURE IN DETAIL: LEFT TOTAL KNEE ARTHROPLAST Y, 44088. Ms. Hopson was brought to the operative s uite, at which time, she was placed in supine position on the OR table. Routine monitor s were established. General anesthesia was delivered. Af ter satisfactory induction of general anesthesia, a tourniquet was applied to th e patient's left lower extremity per Mr. Navarrete and the left leg was circumferentially p repped and draped in the usual sterile fashion per Mr. Navarrete. The leg was elevate d, exsanguinated, tourniquet [...] Anterior and posterior PATIENT NAME: KENTRELL HOPSON [id number] cruciate ligaments were resected. Intramedullary instrumentati on [...] was then resected so as to ensure nondenominational of normal height with the prosthesis in [...] well as extension. The trial components were re moved. The bony surfaces were prepared with cement implantation utilizing [...] followed by surg ical campos per Mr. Navarrete. Sterile dressing was applied by Mr. Navarrete. The patient was then extubated, taken to rec overy room awake and alert without any anesthetic or operative complications. At the end of t he case, sponge and needle counts were correct x2. During the proce dure, Mr. Navarrete was invaluable in positioning the patient as well as in preparation and drapin g of extremity. He is also responsible for providing ex posure during the procedure in order to ____ of the case as well as to protect the neurovascular bun dles. Finally, he was responsible for closure of the postoperative inc isions and application of postoperative dressing. Dictated By: Hai Gaines MD WT: OP:DWAINE/RADHA/WATSON Conf#: [id number]/DID#: [id number] Authenticated by Hai Gaines MD On 9 11:32:49 AM PATIENT NAME: KENTRELL HOPSON [id number] Electronically Signed by Hai Gaines MD on 0 10/24/18 at 1133 PATIENT NAME: KENTRELL HOPSON [id number] 2018-10-24 [id number] [facility] 09:05:00-00:[address] [place] [address] PATIENT NAME: KENTRELL HOPSON ADMIT DATE: 10/13 10/31 ACCOUNT NO: [id number] ROOM NO: Y.311 AGE: 47 REPORT TYPE: OPERATIVE REPORT SEX: F ADMITTING PHYSICIAN: ATTENDING PHYSICIAN:Hai Gaines MD OPERATION DATE: 10/24/2018 PREOPERATIVE DIAGNOSIS: Left knee osteoarthritis . POSTOPERATIVE DIAGNOSIS: Left knee osteoarthriti s, M17.12. PROCEDURE PERFORMED: Left total knee arthroplast y, 26284. IMPLANTS UTILIZED: DePuy Att une total knee system, size-3 narrow left posterior stabilized femur, size-3 mob ile-bearing tibial tray, 3 x 10 mm rotating platform posterior stabilized tibial insert, and 35-mm ov al patella. All components cemented. ANESTHESIA: General. TOURNIQUET TIME: 27 minutes. ESTIMATED BLOOD LOSS: Less than 40 mL. SURGEON: Hai Gaines MD MANAGER UNIX: LEANNA Torres CLINICAL INDICATIONS: Ms. Hopson is a 47-year-old female from [place], [place], severe and progressive pain in her left knee. Her pain has been occurring with daily activities. The pain has been refractory t o extensive nonoperative treatment. Due to her progressive pain and lack of response to nonoperative intervention, she is admitted for left total kne e arthroplasty. PROCEDURE IN DETAIL: LEFT TOTAL KNEE ARTHROPLAST Y, 90233. Ms. Hopson was brought to the operative s uite, at which time, she was placed in supine position on the OR table. Routine monitor s were established. General anesthesia was delivered. Af ter satisfactory induction of general anesthesia, a tourniquet was applied to th e patient's left lower extremity per Mr. Navarrete and the left leg was circumferentially p repped and draped in the usual sterile fashion per Mr. Navarrete. The leg was elevate d, exsanguinated, tourniquet [...] Anterior and posterior PATIENT NAME: KENTRELL HOPSON [id number] cruciate ligaments were resected. Intramedullary instrumentati on [...] was then resected so as to ensure nondenominational of normal height with the prosthesis in [...] followed by surg ical campos per Mr. Navarrete. Sterile dressing was applied by Mr. Navarrete. The patient was then extubated, taken to rec overy room awake and alert without any anesthetic or operative complications. At the end of t he case, sponge and needle counts were correct x2. During the proce dure, Mr. Navarrete was invaluable in positioning the patient as well as in preparation and drapin g of extremity. He is also responsible for providing ex posure during the procedure in order to ____ of the case as well as to protect the neurovascular bun dles. Finally, he was responsible for closure of the postoperative inc isions and application of postoperative dressing. Dictated By: Hai Gaines MD WT: OP:DWAINE/RADHA/WATSON Conf#: [id number]/DID#: [id number] Authenticated by Hai Gaines MD On 9 11:32:49 AM PATIENT NAME: KENTRELL HOPSON [id number] Electronically Signed by Hai Gaines MD on 0 10/24/18 at 1133 PATIENT NAME: KENTRELL HOPSON [id number] 2018-10-22 [id number] [facility]ATO 17:45:00-00:00 01 [place] [address] PATIENT NAME: KENTRELL HOPSON ADMIT DATE: ACCOUNT NO: [id number] ROOM NO: AGE: 47 REPORT TYPE: HISTORY AND PHYSICAL SEX: F ADMITTING PHYSICIAN: ATTENDING PHYSICIAN:Hai Gaines MD ADMISSION DATE: 10/24/2018 ADMITTING DIAGNOSIS: Left [...] -year smoker. 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 No alcohol use is noted. 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 ASSESSMENT: Left knee osteoarthritis. SURGICAL PLAN: [...] informed consent to proceed. Dictated By: Hai Gaines MD WT: HP:DWAINE/RADHA/WATSON Conf#: [id number]/DID#: [id number] Authenticated by Hai Gaines MD On 9 06:46:07 AM Electronically Signed by Hai Gaines MD on 0 10/23/18 at 0646 PATIENT NAME: KENTRELL HOPSON [id number]
[2023-04-13 08:13] LABS: Absolute Lymphocytes (CBC) 1.4 K/uL (0.7-4.9); Hematocrit 35.7 % (36.0-45.0); Lymphocytes % 13.4 % (15.3-44.8); RBC Red Blood Cell Count 4.89 M/uL (3.86-4.86)
[2023-04-13 08:21] LABS: Protime INR 1.05
--- NOTE | 2023-04-13 08:27 | RAD REPORT ---
EXAM DESCRIPTION: CT - Head Brain Wo Cont - 04/13/2023 8:11 am CLINICAL HISTORY: Headache COMPARISON: 2020 TECHNIQUE: Computed axial tomography of the head was obtained. IV contrast was not requested. All CT scans are performed using dose optimization technique as appropriate and may include automated exposure control or mA/KV adjustment according to patient size. FINDINGS: An intracranial bleed is not seen The ventricles are normal in caliber No extra-axial fluid collection is noted. 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 Fluid within the sinuses/ mastoids is not seen. IMPRESSION: No acute intracranial abnormality is seen If patient's symptoms persist MRI of the brain would be recommended
[2023-04-13 08:31] LABS: Potassium 4.1 mEq/L (3.5-5.1)
[2023-04-13] MEDS ORDERED: METOCLOPRAMIDE 10 MG/2mL INJ ONE (08:41)
[2023-04-13] MEDS ORDERED: NA CHLORIDE 0.9% 1,000 ML ONE (08:42)
[2023-04-13] MEDS ORDERED: MORPHINE 4 MG/ML SYR ONE (08:42)
[2023-04-13] MEDS ORDERED: dexAMETHasone 10 MG/ML VIAL ONE (08:42)
--- NOTE | 2023-04-13 09:53 | EDPHYS ---
Physician Documentation [facility] Name: Samara Hopson Age: 52 yrs Sex: Female : 1970 Arrival Date: 04/13/2023 Time: 07:34 Bed 8 Private MD: Osman Penaloza ED Physician Yousuf Veliz HPI: 04/13 08:12 This 52 yrs old Female presents to ER via Ambulatory with complaints of Headache, High rn Blood Pressure. 08:12 The patient complains of pain to the forehead and right eye. The patient describes the rn headache as aching. 08:12 Onset: The symptoms/episode began/occurred 2 day(s) ago. Associated signs and symptoms: rn Pertinent positives: nausea, Photophobia sinus congestion, Pertinent negatives: fever, neck stiffness, vision loss, vertigo. Severity of symptoms: At its worst the pain was moderate, in the emergency department the pain is unchanged. Headache History: The patient has had previous headaches and this one is similar to previous episodes. The symptoms are alleviated by nothing. the symptoms are aggravated by lights, noise. The patient has experienced similar episodes in the past. The patient has not recently seen a physician. Pt reports right sided headache, worse behind right eye, throbbing, began 2 days ago, assoc with light sensitivity, reports "aura", and similar to previous headaches but noticed BP was elevated so wanted to come in to make sure nothing else was happening. . Historical: - Allergies: 07:44 No Known Allergies; ll1 - PMHx: 07:37 CVA; GERD; ll1 07:44 Hypertensive disorder; ll1 - PSHx: 07:37 cervical fusion; Gastric Bypass; ll1 07:44 2 heart stents; ll1 - Immunization history:: Adult Immunizations up to date. - Social history:: Smoking status: Patient denies any tobacco usage or history of. - Family history:: not pertinent. - Hospitalizations: : No recent hospitalization is reported. ROS: 08:12 Constitutional: Negative for fever, chills, and weight loss, Eyes: Negative for injury, rn pain, redness, and discharge, Neck: Negative for injury, pain, and swelling, Cardiovascular: Negative for chest pain, palpitations, and edema, Respiratory: Negative for shortness of breath, cough, wheezing, and pleuritic chest pain, Abdomen/GI: Negative for abdominal pain, diarrhea, and constipation, Back: Negative for injury and pain, MS/Extremity: Negative for injury and deformity, Skin: Negative for injury, rash, and discoloration, Neuro: Negative for weakness, numbness, tingling, and seizure. Exam: 08:12 Constitutional: This is a well developed, well nourished patient who is awake, alert, rn and in no acute distress. Head/Face: Normocephalic, atraumatic. Eyes: Pupils equal round and reactive to light, extra-ocular motions intact Neck: No Meningismus. Cardiovascular: Regular rate and rhythm. No pulse deficits. Respiratory: No increased work of breathing, no retractions or nasal flaring. Skin: Warm, dry MS/ Extremity: Pulses equal, no cyanosis. Neuro: Awake and alert, GCS 15, oriented to person, place, time, and situation. Cranial nerves II-XII grossly intact. Motor strength 5/5 in all extremities. Sensory grossly intact. Cerebellar exam normal. 08:32 ECG was reviewed by the Attending Physician. rn Vital Signs: 07:44 BP 156 / 106; Pulse 83; Resp 18; Temp 98.2(O); Pulse Ox 100% on R/A; Weight 107.95 kg; ll1 Height 5 ft. 2 in. ; Pain 5/10; 09:14 BP 121 / 63; rn 09:29 BP 121 / 63; Pulse 61; Resp 16; Pulse Ox 100% ; bp 10:19 BP 114 / 58; Pulse 66; Resp 16; Pulse Ox 100% ; bp 07:44 Body Mass Index 43.53 (107.95 kg, 157.48 cm) ll1 07:44 Pain Scale: Adult ll1 [place] Coma Score: 09:51 Eye Response: spontaneous(4). Motor Response: obeys commands(6). Verbal Response: rn oriented(5). Total: 15. MDM: 07:37 Patient medically screened. rn 09:51 Differential diagnosis: cluster headache, hypertensive headache, intracerebral rn hemorrhage, migraine, tension headache, trigeminal neuralgia, vasomotor headache. Data reviewed: vital signs, nurses notes, lab test result(s), radiologic studies, CT scan, and as a result, I will discharge patient. Counseling: I had a detailed discussion with the patient and/or guardian regarding: the historical points, exam findings, and any diagnostic results supporting the discharge/admit diagnosis, lab results, radiology results, the need for outpatient follow up, to return to the emergency department if symptoms worsen or persist or if there are any questions or concerns that arise at home. Special discussion: I discussed with the patient/guardian in detail that at this point there is no indication for admission to the hospital. It is understood, however, that if the symptoms persist or worsen the patient needs to return immediately for re-evaluation. Based on the history and exam findings, there is no indication for further emergent testing or inpatient evaluation. I discussed with the patient/guardian the need to see the neurologist for further evaluation of the symptoms. ED course: Pt feels much better, BP normalized, ct head neg, viral studies negative, neuro exam normal, used to take depakote for migraines and stopped taking it, recommend neuro f/u for further management. . 04/13 07:53 Order name: CBC with Diff; Complete Time: 08: rn 04/13 07:53 Order name: Basic Metabolic Panel; Complete Time: 09: rn 04/13 07:53 Order name: Protime (+inr); Complete Time: 08: rn 04/13 07:53 Order name: Ptt, Activated; Complete Time: 08: rn 04/13 07:53 Order name: Troponin High Sensitivity; Complete Time: 09: rn 04/13 07:53 Order name: SARS-COV-2 RT PCR; Complete Time: 09:13 rn 04/13 07:53 Order name: Flu; Complete Time: 09: rn 04/13 07:53 Order name: Strep rn 04/13 08:28 Order name: Throat Culture EDMT 04/13 07:53 Order name: CT Head Brain wo Cont; Complete Time: 08: rn 04/13 07:53 Order name: EKG; Complete Time: 07:53 rn 04/13 07:53 Order name: IV Start; Complete Time: 08: rn 04/13 07:53 Order name: EKG - Nurse/Tech; Complete Time: 08:11 rn EC:32 Rate is 76 beats/min. Rhythm is regular. QRS Monument is Normal. IA interval is normal. QRS rn interval is normal. QT interval is normal. No Q waves. T waves are Normal. No ST changes noted. Clinical impression: Normal ECG. Reviewed by me. Administered Medications: 08:15 Drug: NS 0.9% IV 1000 ml Route: IV; Rate: 1000 ml; Site: right forearm; bp 10:20 Follow up: IV Status: Completed infusion; IV Intake: 1000ml bp 08:15 Drug: morphine IVP or IV 4 mg Route: IVP; Infused Over: 4 mins; Site: right forearm; bp 10:20 Follow up: Response: No adverse reaction bp 08:15 Drug: metoCLOPramide IVP 10 mg Route: IVP; Site: right forearm; bp 10:20 Follow up: Response: No adverse reaction bp 08:15 Drug: Decadron - Dexamethasone IVP 10 mg Route: IVP; Site: left upper arm; bp 10:20 Follow up: Response: No adverse reaction bp Disposition Summary: 04/13/23 09:52 Discharge Ordered Location: Home rn Problem: an acute exacerbation rn Symptoms: have improved rn Condition: Stable rn Diagnosis - Migraine with aura, not intractable, without status migrainosus rn Followup: rn - With: Private Physician - When: As needed - Reason: Recheck today's complaints, Re-evaluation by your physician Discharge Instructions: - Migraine Headache rn - Discharge Summary Sheet db Forms: - Medication Reconciliation Form rn - Thank You Letter rn - Antibiotic harness builder - Prescription Opioid Use rn - Patient Portal Instructions rn - Work release form db Signatures: Dispatcher [employer] Yousuf Saldana MD MD rn Peltier, Brian, RN RN bp Lewis, Lynsay RN RN ll1
--- NOTE | 2023-04-13 09:53 | ER ---
Nurse's Notes [facility] Name: Samara Hopson Age: 52 yrs Sex: Female : 1970 Arrival Date: 04/13/2023 Time: 07:34 Bed 8 Private MD: Osman Penaloza Diagnosis: Migraine with aura, not intractable, without status migrainosus Presentation: 04/13 07:44 Chief complaint: Patient states: [place] and high BP for 2 days. Coronavirus screen: Client ll1 denies travel out of the [place] in the last 14 days. At this time, the client does not indicate any symptoms associated with coronavirus-19. Ebola Screen: Patient denies travel to an Ebola-affected area in the 21 days before illness onset. Initial Sepsis Screen: Does the patient meet any 2 criteria? No. Patient's initial sepsis screen is negative. Does the patient have a suspected source of infection? No. Patient's initial sepsis screen is negative. Risk Assessment: Do you want to hurt yourself or someone else? Patient reports no desire to harm self or others. Onset of symptoms was April 12, 2023. 07:44 Method Of Arrival: Ambulatory [facility] 07:44 Acuity: TIO 3 [facility] Triage Assessment: 07:46 Headache History: The patient has had previous headaches and this one is similar to [facility] previous episodes. General: Appears uncomfortable, Behavior is calm, cooperative, appropriate for age. Pain: Complains of pain in head Pain currently is 5 out of 10 on a pain scale. Pain began 1 day ago. Also complains of. Neuro: Reports headache. Historical: - Allergies: 07:44 No Known Allergies; ll1 - PMHx: 07:37 CVA; GERD; ll1 07:44 Hypertensive disorder; 1 - PSHx: 07:37 cervical fusion; Gastric Bypass; 1 07:44 2 heart stents; ll1 - Immunization history:: Adult Immunizations up to date. - Social history:: Smoking status: Patient denies any tobacco usage or history of. - Family history:: not pertinent. - Hospitalizations: : No recent hospitalization is reported. Screenin:29 [facility] ED Fall Risk Assessment (Adult) History of falling in the last 3 months, bp including since admission No falls in past 3 months (0 pts). Abuse screen: Denies threats or abuse. Denies injuries from another. Nutritional screening: No deficits noted. Tuberculosis screening: No symptoms or risk factors identified. Assessment: 08:11 Reassessment: Patient appears in no apparent distress at this time. Patient and/or db family updated on plan of care and expected duration. Pain level reassessed. Patient is alert, oriented x 3, equal unlabored respirations, skin warm/dry/pink. General: Appears in no apparent distress. comfortable, Behavior is calm, cooperative. Pain: Complains of pain in head. Neuro: Level of Consciousness is awake, alert, obeys commands, Oriented to person, place, time, situation. Respiratory: Airway is patent Respiratory effort is even, unlabored, Respiratory pattern is regular, symmetrical. 09:29 Reassessment: Patient appears in no apparent distress at this time. Patient is alert, bp oriented x 3, equal unlabored respirations, skin warm/dry/pink. 10:19 Reassessment: DC HOME AMBULATORY. bp Vital Signs: 07:44 BP 156 / 106; Pulse 83; Resp 18; Temp 98.2(O); Pulse Ox 100% on R/A; Weight 107.95 kg; ll1 Height 5 ft. 2 in. ; Pain 5/10; 09:14 BP 121 / 63; rn 09:29 BP 121 / 63; Pulse 61; Resp 16; Pulse Ox 100% ; bp 10:19 BP 114 / 58; Pulse 66; Resp 16; Pulse Ox 100% ; bp 07:44 Body Mass Index 43.53 (107.95 kg, 157.48 cm) ll1 07:44 Pain Scale: Adult ll1 [place] Coma Score: 09:51 Eye Response: spontaneous(4). Motor Response: obeys commands(6). Verbal Response: rn oriented(5). Total: 15. ED Course: 07:36 Patient arrived in ED. mr 07:36 Osman Penaloza is Private Physician. mr 07:37 Yousuf Veliz MD is Attending Physician. rn 07:37 Arm band placed on Patient placed in an exam room, on a stretcher. ll1 07:46 Triage completed. ll1 07:50 Leonardo Barnes, RN is Primary Nurse. bp 08:08 Inserted saline lock: 22 gauge in right forearm, using aseptic technique. Blood ds4 collected. 08:13 CT Head Brain wo Cont In Process Unspecified. EDMS 09:29 Patient has correct armband on for positive identification. Bed in low position. Call bp light in reach. Side rails up X2. Adult w/ patient. 10:19 Provided Education on: N/A. bp 10:19 No provider procedures requiring assistance completed. IV discontinued, intact, bp bleeding controlled, No redness/swelling at site. Pressure dressing applied. Administered Medications: 08:15 Drug: NS 0.9% IV 1000 ml Route: IV; Rate: 1000 ml; Site: right forearm; bp 10:20 Follow up: IV Status: Completed infusion; IV Intake: 1000ml bp 08:15 Drug: morphine IVP or IV 4 mg Route: IVP; Infused Over: 4 mins; Site: right forearm; bp 10:20 Follow up: Response: No adverse reaction bp 08:15 Drug: metoCLOPramide IVP 10 mg Route: IVP; Site: right forearm; bp 10:20 Follow up: Response: No adverse reaction bp 08:15 Drug: Decadron - Dexamethasone IVP 10 mg Route: IVP; Site: left upper arm; bp 10:20 Follow up: Response: No adverse reaction bp Medication: 10:19 VIS not applicable for this client. bp Intake: 10:20 IV: 1000ml; Total: 1000ml. bp Outcome: 09:52 Discharge ordered by . rn 10:19 Discharged to home ambulatory, with family. bp 10:19 Condition: stable 10:19 Discharge instructions given to patient, Instructed on discharge instructions, follow up and referral plans. Demonstrated understanding of instructions, follow-up care. 10:21 Patient left the ED. bp Signatures: Dispatcher [employer] [facility] Matilde Sanchez Yousuf Shirley MD MD rn Swanson, Donovan ds4 Leonardo Barnes RN RN Boogie Galicia RN RN ll1 Adelina Alexis, RN RN db
[2023-04-13 10:25] VITALS: TEMP 98.2; O2SAT 100
[2023-04-13 10:30] VITALS: BP 114/58
== END 2023-04-13 10:21 | disposition home or self-care (01) ==
LOC: ER 07:34
DX: G43.109 Migraine with aura, not intractable, without status migrainosus (principal); I10 Essential (primary) hypertension; Z20.822 Contact with and (suspected) exposure to COVID-19; Z95.818 Presence of other cardiac implants and grafts
CPT/HCPCS: 87070; 85025; 80048; 36415; 85610; 87081; 85730; 84484; 87635; 87804 ×2; 70450; J2765; J1100; J7030; 93005